=== PATIENT | female | born 1950 | race Caucasian/White ===

== ENCOUNTER 2017-04-19 13:58 | Observation (INO) | payer MEDICARE ==
[~2017-04-19] VITALS: Ht 175.3 cm; Wt 126.7 kg
[2017-04-19] VITALS (7 sets, daily range): BP systolic 134–170; BP diastolic 54–79; PULSE 70–84; RESP 18–20; TEMP 98.4–99; O2SAT 97–100
--- NOTE | 2017-04-19 15:59 | PD ---
HPI Chief Complaint: Respiratory Symptoms Time Seen by Provider: 15:45 Travel History International Travel<30 days: No Contact w/Intl Traveler<30days: No Traveled to known affect area: No History of Present Illness HPI C/O 1 WEEK WORSENING SOB, WORSE WITH ACTIVITY, INCREASING LEG SWELLING PRESENTED TO [facility] WHERE SHE WAS ADVISED TO COME TO ED. [facility] Social History Tobacco Use: Yes Allergies-Medications (Allergen,Severity, Reaction): Coded Allergies: No Known Allergies (Unverified , 04/19/17) Reported Meds & Prescriptions Reported Meds & Active Scripts Active Reported Anastrozole 1 Mg Tab 1 Mg PO DAILY Fetzima ER (Levomilnacipran ER) 40 Mg Caper 40 Mg PO DAILY Review of Systems Except as stated in HPI: all other systems reviewed are Neg Respiratory: Positive: Shortness of Breath Physical Exam Narrative GENERAL: SKIN: Warm and dry. HEAD: Atraumatic. Normocephalic. EYES: Pupils equal and round. No scleral icterus. No injection or drainage. ENT: No nasal bleeding or discharge. Mucous membranes pink and moist. NECK: Trachea midline. No JVD. CARDIOVASCULAR: Regular rate and rhythm. RESPIRATORY: No accessory muscle use. Clear to auscultation. Breath sounds equal bilaterally. SCATTERED WHEEZES GASTROINTESTINAL: Abdomen soft, non-tender, nondistended. Hepatic and splenic margins not palpable. MUSCULOSKELETAL: Extremities without clubbing, cyanosis, or 2+ ADA LE EDEMA. No obvious deformities. NEUROLOGICAL: Awake and alert. No obvious cranial nerve deficits. Motor grossly within normal limits. Five out of 5 muscle strength in the arms and legs. Normal speech. PSYCHIATRIC: Appropriate mood and affect; insight and judgment normal. Data Data Last Documented VS Vital Signs Date Time Temp Pulse Resp B/P Pulse Ox O2 Delivery O2 Flow Rate FiO2 04/19/17 19:00 20 97 Room Air 04/19/17 19:00 99.0 76 170/79 Orders Complete Blood Count With Diff (04/19/17 16:08) Comprehensive Metabolic Panel (04/19/17 16:08) B-Type Natriuretic Peptide (04/19/17 16:08) Act Partial Throm Time (Ptt) (04/19/17 16:08) Prothrombin Time / Inr (Pt) (04/19/17 16:08) Ckmb (Isoenzyme) Profile (04/19/17 16:08) Troponin I (04/19/17 16:08) Influenzae A/B Antigen (04/19/17 16:08) Iv Access Insert/Monitor (04/19/17 16:08) Ecg Monitoring (04/19/17 16:08) Oximetry (04/19/17 16:08) Oxygen Administration (04/19/17 16:08) Chest, Single Ap (04/19/17 16:08) Sodium Chloride 0.9% Flush (Ns Flush) (04/19/17 16:15) Methylprednisolone So Succ Inj (Solumedr (04/19/17 16:15) Albuterol Neb (Albuterol Neb) (04/19/17 16:15) Ct Pulmonary Angiogram (04/19/17 17:41) Iohexol 350 Inj (Omnipaque 350 Inj) (04/19/17 18:30) Furosemide Inj (Lasix Inj) (04/19/17 19:00) Furosemide Inj (Lasix Inj) (04/19/17 19:00) Admit Order (Ed Use Only) (04/19/17 19:06) Labs Laboratory Tests Test 04/19/17 16:23 White Blood Count 9.4 TH/MM3 Red Blood Count 4.18 MIL/MM3 Hemoglobin 11.0 GM/DL Hematocrit 33.7 % Mean Corpuscular Volume 80.5 FL Mean Corpuscular Hemoglobin 26.4 PG Mean Corpuscular Hemoglobin 32.7 % Concent Red Cell Distribution Width 16.5 % Platelet Count 236 TH/MM3 Mean Platelet Volume 8.9 FL Neutrophils (%) (Auto) 65.7 % Lymphocytes (%) (Auto) 20.6 % Monocytes (%) (Auto) 7.3 % Eosinophils (%) (Auto) 2.7 % Basophils (%) (Auto) 3.7 % Neutrophils # (Auto) 6.2 TH/MM3 Lymphocytes # (Auto) 1.9 TH/MM3 Monocytes # (Auto) 0.7 TH/MM3 Eosinophils # (Auto) 0.3 TH/MM3 Basophils # (Auto) 0.3 TH/MM3 CBC Comment DIFF FINAL Differential Comment Prothrombin Time 11.1 SEC Prothromb Time International 1.0 RATIO Ratio Activated Partial 25.8 SEC Thromboplast Time Sodium Level 141 MEQ/L Potassium Level 3.9 MEQ/L Chloride Level 108 MEQ/L Carbon Dioxide Level 23.5 MEQ/L Anion Gap 10 MEQ/L Blood Urea Nitrogen 12 MG/DL Creatinine 0.77 MG/DL Estimat Glomerular Filtration 75 ML/MIN Rate Random Glucose 85 MG/DL Calcium Level 8.8 MG/DL Total Bilirubin 0.8 MG/DL Aspartate Amino Transf 29 U/L (AST/SGOT) Alanine Aminotransferase 35 U/L (ALT/SGPT) Alkaline Phosphatase 193 U/L Total Creatine Kinase 74 U/L Troponin I LESS THAN 0.02 NG/ML B-Type Natriuretic Peptide 81 PG/ML Total Protein 7.5 GM/DL Albumin 3.2 GM/DL [facility] Medical Decision Making Medical Screen Exam Complete: Yes Emergency Medical Condition: Yes Medical Record Reviewed: Yes Interpretation(s) NSR 65, NONSPEC STT CHANGES Differential Diagnosis PE V PNA V CHF V COPD Narrative Course PATIENT ON INITIAL EVAL NOTED TO BE CLINICALLY FLUID OVERLOADED AND TREATED SUCH, CXR DID NOT REVEAL OBVIOUS PULM EDEMA EXPECTED CT CHEST PERFORMED TO R/ O PE, STUDY CONFRIMED PULM EDEMA. ADMITTED FOR OBS AND FURTEHR EVALUATIOIN Diagnosis Primary Impression: PULMONARY EDEMA EVAL FOR NEW ONSET CHF Admitting Information Admitting Physician Requests: Observation Scripts Spacer/Device For Mdi (Inspirease Drug Delivery)1 Ea Mis #1 EA .ROUTE DIRECTED Ref 0 Prov:Cindy Iraheta MD 04/21/17 Nebulizer 1 Mis Mis #1 EA .ROUTE DIRECTED Ref 0 Prov:Cindy Iraheta MD 04/21/17 Ipratropium-Albuterol Neb (Duoneb)0.5-2.5 Mg/3 Ml Neb1 Nebule INH Q4HR NEB # 180 NEBULE Ref 0 Prov:Cindy Iraheta MD 04/21/17 Metoprolol Tartrate 25 Mg Tab25 Mg PO DAILY #30 TAB Ref 0 Prov:Cindy Iraheta MD 04/21/17 Lisinopril 5 Mg Tab5 Mg PO DAILY #30 TAB Ref 0 Prov:Cindy Iraheta MD 04/21/17 Prednisone 20 Mg Tab40 Mg PO DAILY #4 TAB Ref 0 Take 40 mg (2 tablets) daily for 5 days Prov:Cindy Iraheta MD 04/21/17 Potassium Chloride ER (K-Tab)20 Meq Tab20 Meq PO DAILY #30 TAB Ref 0 Prov:Cindy Iraheta MD 04/21/17 Budesonide Powder Inh (Pulmicort Flexhaler)180 Mcg/Act [id number] Mcg INH Q12HR # 1 INHALER Ref 0 Prov:Cindy Iraheta MD 04/21/17 Albuterol 18 GM Inh (Ventolin Hfa 18 GM Inh)90 Mcg/Act Aer2 Puff INH Q6H PRN ( SHORTNESS OF BREATH) #1 INHALER Ref 0 Prov:Cindy Iraheta MD 04/21/17 Ipratropium HFA 12.9 GM Inh (Atrovent HFA 12.9 GM Inh)17 Mcg/Act Aer2 Puff INH TID #1 INHALER Ref 0 Prov:Cindy Iraheta MD 04/21/17 Furosemide 40 Mg Tab40 Mg PO DAILY #30 TAB Ref 0 Prov:Cindy Iraheta MD 04/21/17 Alexandr Reyes MD Apr 19, 2017 15:59 Alexandr Reyes MD Apr 19, 2017 15:59
[2017-04-19] MEDS ORDERED: LEVO1CAP3 PO (16:10)
[2017-04-19] MEDS ORDERED: ANAS1TAB PO (16:10)
[2017-04-19] MEDS ORDERED: SODIUM CHLORIDE 0.9% FLUSH 10 ML FLUSH IVF PRN (16:15)
[2017-04-19] MEDS ORDERED: methylPREDNISolone SOD SUCC 125 MG/2 ML VIAL IVP ONE (16:15)
[2017-04-19 16:32] LABS: AUTOMATED NEUTROPHIL # 6.2 TH/MM3 (1.8-7.7); BASOPHIL # 0.3 TH/MM3 (0-0.2); BASOPHIL % 3.7 % (0.0-2.0); EOSINOPHIL # 0.3 TH/MM3 (0-0.4); EOSINOPHIL % 2.7 % (0.0-4.0); HEMATOCRIT 33.7 % (35.0-46.0); LYMPH % 20.6 % (9.0-44.0); LYMPHOCYTE # 1.9 TH/MM3 (1.0-4.8); MEAN CELL VOLUME 80.5 FL (80.0-100.0); MEAN CORPUSCULAR HEMOGLOBIN 26.4 PG (27.0-34.0); MEAN CORPUSCULAR HGB CONC 32.7 % (32.0-36.0); MONO % 7.3 % (0.0-8.0); NEUT % 65.7 % (16.0-70.0); PLATELET COUNT 236 TH/MM3 (150-450); RED BLOOD COUNT 4.18 MIL/MM3 (4.00-5.30); RED CELL DISTRIBUTION WIDTH 16.5 % (11.6-17.2); WHITE BLOOD COUNT 9.4 TH/MM3 (4.0-11.0)
[2017-04-19 16:38] LABS: HEMO FLAGS DIFF FINAL
[2017-04-19] MEDS: RESP: ALBUTEROL 2.5 MG/3 ML NEB (SCH) INH ×2 (16:39→16:48)
[2017-04-19 16:41] LABS: CHLORIDE 108 MEQ/L (98-107); POTASSIUM 3.9 MEQ/L (3.5-5.1); SODIUM (NA) 141 MEQ/L (136-145)
[2017-04-19 16:46] LABS: ANION GAP 10 MEQ/L (5-15); BICARBONATE 23.5 MEQ/L (21.0-32.0); BLOOD UREA NITROGEN 12 MG/DL (7-18)
[2017-04-19 16:49] LABS: ALT (GPT) 35 U/L (10-53); AST (GOT) 29 U/L (15-37); GLOMERULAR FILTRATION RATE 75 ML/MIN (>89)
[2017-04-19 16:50] LABS: TOTAL BILIRUBIN ADULT 0.8 MG/DL (0.2-1.0)
[2017-04-19 16:52] LABS: ALKALINE PHOSPHATASE 193 U/L (45-117)
[2017-04-19 16:56] LABS: CREATINE KINASE 74 U/L (26-192)
[2017-04-19 16:59] LABS: APTT (PATIENT) 25.8 SEC (24.3-30.1); PROTHROMBIN TIME - PATIENT 11.1 SEC (9.8-11.6)
--- NOTE | 2017-04-19 17:32 | RADRPT ---
EXAM DATE/TIME: 04/19/2017 16:38 [facility] COMPARISON: No previous studies available for comparison. INDICATIONS : Short of breath today. MEDICAL HISTORY : Carcinoma, breast. Gastroesophageal reflux disease. Barretts esophagus. SURGICAL HISTORY : Total knee replacement, left. Total knee replacement, right. Mastectomy, left. Left femur. ENCOUNTER: Initial ACUITY: 1 day PAIN SCORE: 0/10 LOCATION: Bilateral chest FINDINGS: The heart is enlarged. There are chronic interstitial changes within the pulmonary parenchyma. The me diastinal contours are within normal limits. No pleural effusion is evident. There are degenerative c hanges in the shoulders. There are postsurgical changes within the right shoulder. CONCLUSION: 1. Cardiomegaly and chronic interstitial changes. Richard Trinidad MD on April 19, 2017 at 16:55 Board Certified Radiologist. This report was verified electronically.
[2017-04-19] MEDS ORDERED: IOHEXOL 350 MG/ML 10 ML VIAL (for RAD DIAG) IV ONE (18:30)
--- NOTE | 2017-04-19 18:45 | RADRPT ---
EXAM DATE/TIME: 04/19/2017 18:11 [facility] COMPARISON: No previous studies available for comparison. INDICATIONS : Shortness of breath. IV CONTRAST: 75 cc Omnipaque 350 (iohexol) IV RADIATION DOSE: 21.34 CTDIvol (mGy) MEDICAL HISTORY : Carcinoma, breast. SURGICAL HISTORY : Mastectomy, left. ENCOUNTER: Initial ACUITY: 1 week PAIN SCALE: 0/10 LOCATION: chest TECHNIQUE: Volumetric scanning of the chest was performed using a pulmonary embolism protocol MIP images were re constructed. Using automated exposure control and adjustment of the mA and/or kV according to patien t size, radiation dose was kept as low as reasonably achievable to obtain optimal diagnostic quality images. DICOM format image data is available electronically for review and comparison. Follow-up recommendations for incidentally detected pulmonary nodules are based at a minimum on nodul e size and patient risk factors according to Fleischner Society Guidelines. FINDINGS: PULMONARY ARTERIES: No filling defects are seen in the pulmonary arteries through the segmental level. LUNGS: Moderate interstitial changes are noted. No concerning pulmonary nodule is visualized. PLEURAE: Small bilateral pleural effusions are noted. MEDIASTINUM: Moderate coronary calcifications are noted including the LAD. MUSCULOSKELETAL: Within normal limits for patient age. MISCELLANEOUS: The visualized upper abdominal organs demonstrate no acute abnormality. CONCLUSION: Moderate interstitial edema, small bilateral pleural effusions. Moderate LAD calcifications. Trung Trinidad MD FACR on April 19, 2017 at 18:43 Board Certified Radiologist. This report was verified electronically.
[2017-04-19] MEDS ORDERED: FUROSEMIDE 40 MG/4 ML VIAL IVP ONE (19:00)
[2017-04-19] MEDS ORDERED: FUROSEMIDE 100 MG/10 ML VIAL IVP ONE (19:00)
[2017-04-19] MEDS ORDERED: SODIUM CHLORIDE 0.9% FLUSH 10 ML FLUSH IV FLUSH PRN (19:45)
[2017-04-19] MEDS ORDERED: NALOXONE HCL 0.4 MG/ML AMP IV PRN (19:45)
[2017-04-19] MEDS: SODIUM CHLORIDE 0.9% FLUSH 10 ML FLUSH IV FLUSH SCH (22:30)
--- NOTE | 2017-04-19 22:37 | EKG ---
Date Performed: 04/19/2017 Time Performed: 22:17:48 PTAGE: 67 years EKG: Sinus rhythm NONSPECIFIC ST & T-WAVE ABNORMALITY BORDERLINE ECG NO PREVIOUS TRACING DOCTOR: Sammy Oreilly Interpretating Date/Time 04/19/2017 22:36:37
[2017-04-19 23:02] LABS: CREATINE KINASE 67 U/L (26-192)
[2017-04-20] VITALS (8 sets, daily range): BP systolic 142–199; BP diastolic 60–113; PULSE 77–89; RESP 14–22; TEMP 97.6–98.9; O2SAT 93–98
[2017-04-20] MEDS ORDERED: POTASSIUM CHLORIDE 20 MEQ CONTROLLED RELEASE TAB PO ONE (05:45)
[2017-04-20 06:09] LABS: BASOPHIL % 0.1 % (0.0-2.0); HEMATOCRIT 31.6 % (35.0-46.0); HEMO FLAGS DIFF FINAL; LYMPH % 11.3 % (9.0-44.0); LYMPHOCYTE # 0.9 TH/MM3 (1.0-4.8); MEAN CELL VOLUME 79.1 FL (80.0-100.0); MEAN CORPUSCULAR HEMOGLOBIN 26.9 PG (27.0-34.0); MONO % 3.1 % (0.0-8.0); NEUT % 85.5 % (16.0-70.0); PLATELET COUNT 259 TH/MM3 (150-450); RED CELL DISTRIBUTION WIDTH 15.6 % (11.6-17.2); WHITE BLOOD COUNT 8.2 TH/MM3 (4.0-11.0)
[2017-04-20 06:14] LABS: POTASSIUM 3.3 MEQ/L (3.5-5.1)
[2017-04-20 06:21] LABS: BICARBONATE 22.2 MEQ/L (21.0-32.0); MAGNESIUM 2.2 MG/DL (1.5-2.5)
[2017-04-20 06:40] LABS: CREATINE KINASE 92 U/L (26-192)
--- NOTE | 2017-04-20 08:30 | EKG ---
Date Performed: 04/20/2017 Time Performed: 04:48:13 PTAGE: 67 years EKG: Sinus rhythm NONSPECIFIC ST & T-WAVE ABNORMALITY BORDERLINE ECG NO PREVIOUS TRACING DOCTOR: Sammy Oreilly Interpretating Date/Time 04/20/2017 08:28:42
[2017-04-20] MEDS: FUROSEMIDE 40 MG/4 ML VIAL IV PUSH SCH ×2 (09:15→17:06)
[2017-04-20] MEDS: SODIUM CHLORIDE 0.9% FLUSH 10 ML FLUSH IV FLUSH SCH ×2 (09:15→21:37)
--- NOTE | 2017-04-20 11:46 | ECHRPT ---
Indication: HEART FAILURE CONCLUSIONS Normal left ventricular size. Wall thickness is normal. No regional wall motion abnormalities are present. Normal left ventricular size. Wall thickness is normal. No regional wall motion abnormalities are present. BP: 150 / 60 HR: 82 Rhythm: Sinus MEASUREMENTS (Male / Female) Normal Values Technical Quality:Fair 2D ECHO LVOT Diameter 1.6 cm Aortic Root Diameter 2.6 cm M-MODE AV Cusp Separation MM 1.7 cm DOPPLER AV Peak Velocity 321.0 cm/s AV Peak Gradient 41.2 mmHg AV Mean Gradient 21.0 mmHg AV Velocity Time Integral 59.6 cm LVOT Peak Velocity 171.0 cm/s LVOT Peak Gradient 11.7 mmHg LVOT Velocity Time Integral 24.4 cm LVOT Cardiac Index 1583.3 cm/minm AV Area Cont Eq vti 0.8 cm AV Area Cont Eq pk 1.1 cm Mitral E Point Velocity 89.5 cm/s Mitral A Point Velocity 101.0 cm/s Mitral E to A Ratio 0.9 TR Peak Velocity 362.0 cm/s TR Peak Gradient 52.4 mmHg PV Peak Velocity 149.0 cm/s PV Peak Gradient 8.9 mmHg FINDINGS LEFT VENTRICLE Normal left ventricular size. Wall thickness is normal. No regional wall motion abnormalities are present. RIGHT VENTRICLE Normal right ventricular size and systolic function. LEFT ATRIUM The left atrial size is normal. RIGHT ATRIUM The right atrial size is normal. ATRIAL SEPTUM Normal atrial septal thickness without atrial level shunting by limited color doppler interrogation. AORTA The aortic root and proximal ascending aorta are normal in size on limited imaging. MITRAL VALVE Structurally normal mitral valve. No mitral valve stenosis or regurgitation. AORTIC VALVE Moderate thickening of the aortic valve leaflets. No aortic valve regurgitation. Mild aortic valve stenosis. TRICUSPID VALVE Structurally normal tricuspid valve. No tricuspid valve stenosis or regurgitation. PULMONARY VALVE The pulmonary valve is not well visualized. VESSELS The inferior vena cava is normal in size. PERICARDIUM No pericardial effusion. Adalberto Romo MD, FACC (Electronically Signed) Final Date:20 April 2017 11:45
[2017-04-20] MEDS ORDERED: POTASSIUM CHLORIDE 10 MEQ CAP PO ONE (12:30)
[2017-04-20] MEDS ORDERED: MAGNESIUM OXIDE 400 MG TAB PO ONE (13:00)
[2017-04-20] MEDS ORDERED: OMEP40CA2 PO (13:15)
[2017-04-20] MEDS ORDERED: PRAM0.5T PO (13:15)
--- NOTE | 2017-04-20 13:35 | HHI.HP ---
[facility] No Primary Care Physician Admission Diagnosis CLINICAL DECOMP CHF Diagnoses: Chief Complaint: sob Travel History International Travel<30 Days: No Contact w/Intl Traveler <30 Da: No Traveled to Known Affected Are: No History of Present Illness The patient is a 67-year-old female morbidly obese with a BMI of 41.2, COPD, CHF unspecified ejection fraction, anxiety/depression, tobaccoism, history of breast cancer who came to the emergency room with complaints of worsening shortness of breath over the past 2 days. Shortness of breath since worse with activity. She also has noted's her leg and her legs are swollen over the past week. She is taking Lasix at home. She feels more tired than usual. She denies having any chest pain or pressure. No associated nausea, lightheadedness , palpitations, diaphoresis. Review of Systems Except as stated in HPI: all other systems reviewed are Neg Past Family Social History Past Medical History Morbidly obese with a BMI of 41.2, COPD, CHF unspecified ejection fraction, anxiety/depression, tobaccoism, history of breast cancer Past Surgical History Bilateral knee surgery Mastectomy Reported Medications Reported Meds & Active Scripts Active Reported Omeprazole 40 Mg Cap 40 Mg PO DAILY Pramipexole (Pramipexole Dihydrochloride) 0.5 Mg Tab 0.5 Mg PO HS Anastrozole 1 Mg Tab 1 Mg PO DAILY Fetzima ER (Levomilnacipran ER) 40 Mg Caper 40 Mg PO DAILY Allergies: Coded Allergies: No Known Allergies (Unverified , 04/19/17) Family History History of colon cancer , her father Heart problems runs in her family, unspecified Social History Smokes 3 packs cigarettes per week Occasional alcohol use No illicit drug use so Physical Exam Vital Signs Vital Signs Date Time Temp Pulse Resp B/P Pulse Ox O2 Delivery O2 Flow Rate FiO2 04/20/17 09:52 98.0 83 14 142/60 96 04/20/17 04:32 158/60 04/20/17 04:00 97.6 82 20 95 04/20/17 00:00 98.5 89 20 160/76 93 7/12/17 22:30 82 04/19/17 20:00 79 20 158/65 97 Room Air 04/19/17 19:00 20 97 Room Air 04/19/17 19:00 99.0 76 20 170/79 97 Room Air 04/19/17 18:34 84 18 134/62 98 Room Air 04/19/17 16:35 18 100 Room Air 04/19/17 16:03 20 100 Room Air 04/19/17 16:00 98.4 76 20 159/54 100 04/19/17 14:06 98.4 70 18 140/63 99 Physical Exam GENERAL: This is a well-nourished, well-developed patient, in no apparent distress. SKIN: No rashes, ecchymoses or lesions. Cool and dry. HEAD: Atraumatic. Normocephalic. No temporal or scalp tenderness. EYES: Pupils equal round and reactive. Extraocular motions intact. No scleral icterus. No injection or drainage. ENT: Nose without bleeding, purulent drainage or septal hematoma. Throat without erythema, tonsillar hypertrophy or exudate. Uvula midline. Airway patent. NECK: Trachea midline. No JVD or lymphadenopathy. Supple, nontender, no meningeal signs. CARDIOVASCULAR: Regular rate and rhythm without murmurs, gallops, or rubs. RESPIRATORY: Decrease breath sounds. Bibasilar crackles. No wheezes. No accessory muscle use. GASTROINTESTINAL: Abdomen soft, obese, non-tender, nondistended. No hepato- splenomegaly, or palpable masses. No guarding. MUSCULOSKELETAL: Extremities without clubbing, cyanosis. 2+ LE edema. No joint tenderness, effusion, or edema noted. No calf tenderness. Negative Homans sign bilaterally. NEUROLOGICAL: Awake and alert. Cranial nerves II through XII intact. Motor and sensory grossly within normal limits. Five out of 5 muscle strength in all muscle groups. Normal speech. Laboratory Laboratory Tests Test 04/19/17 04/19/17 04/20/17 16:23 22:25 05:25 White Blood Count 9.4 8.2 Red Blood Count 4.18 4.00 Hemoglobin 11.0 10.8 Hematocrit 33.7 31.6 Mean Corpuscular Volume 80.5 79.1 Mean Corpuscular Hemoglobin 26.4 26.9 Mean Corpuscular Hemoglobin 32.7 34.0 Concent Red Cell Distribution Width 16.5 15.6 Platelet Count 236 259 Mean Platelet Volume 8.9 8.8 Neutrophils (%) (Auto) 65.7 85.5 Lymphocytes (%) (Auto) 20.6 11.3 Monocytes (%) (Auto) 7.3 3.1 Eosinophils (%) (Auto) 2.7 0.0 Basophils (%) (Auto) 3.7 0.1 Neutrophils # (Auto) 6.2 7.0 Lymphocytes # (Auto) 1.9 0.9 Monocytes # (Auto) 0.7 0.3 Eosinophils # (Auto) 0.3 0.0 Basophils # (Auto) 0.3 0.0 CBC Comment DIFF FINAL DIFF FINAL Differential Comment Prothrombin Time 11.1 Prothromb Time International 1.0 Ratio Activated Partial 25.8 Thromboplast Time Sodium Level 141 141 Potassium Level 3.9 3.3 Chloride Level 108 107 Carbon Dioxide Level 23.5 22.2 Anion Gap 10 12 Blood Urea Nitrogen 12 20 Creatinine 0.77 0.90 Estimat Glomerular Filtration 75 63 Rate Random Glucose 85 156 Calcium Level 8.8 9.1 Total Bilirubin 0.8 Aspartate Amino Transf 29 (AST/SGOT) Alanine Aminotransferase 35 (ALT/SGPT) Alkaline Phosphatase 193 Total Creatine Kinase 74 67 92 Troponin I LESS THAN 0.02 LESS THAN 0.02 LESS THAN 0.02 B-Type Natriuretic Peptide 81 Total Protein 7.5 Albumin 3.2 Magnesium Level 2.2 Date/Time Procedure Status Source Growth 04/19/17 16:30 Influenza Types A,B Antigen (NICKY) - Final Complete Nasal Washing NEGATIVE FOR FLU A AND B ANTIGEN.... Result Diagram: 04/20/17 0525 04/20/[address] Angiography 04/19/17 1741 Signed Impressions: Service Date/Time: Wednesday, April 19, 2017 18:11 - CONCLUSION: Moderate interstitial edema, small bilateral pleural effusions. Moderate LAD calcifications. Trung Trinidad MD FACR Chest X-Ray 04/19/17 1608 Signed Impressions: Service Date/Time: Wednesday, April 19, 2017 16:38 - CONCLUSION: 1. Cardiomegaly and chronic interstitial changes. Richard Trinidad MD Assessment and Plan Assessment and Plan 67-year-old female with CHF exacerbation Small Bilateral pleural effusions Start Lasix 40 mg IV twice a day Monitor urine output closely. Monitor kidney function closely as patient is on Lasix. 2-D echo Satting well on room air at this time Monitor oxygen saturation. Oxygen by nasal cannula if need to keep saturation more than 92% Troponins are negative by 3. EKG no acute changes Morbidly obese with a BMI of 41.2. Counselled. Dietary changes. To follow-up with the dietitian as outpatient. COPD, CHF unspecified ejection fraction, anxiety/depression, tobaccoism, history of breast cancer. Appears stable at this time. Restart home medications. Consult will consult his extensively regarding quitting smoking. Might need sleep study as outpatient. DVT prophylaxis did Bakari crespo Discussed Condition With Patient, nurse Cindy Iraheta MD Apr 20, 2017 13:35
[2017-04-20] MEDS ORDERED: FETZIMA 40 MG PO SCH (14:00)
[2017-04-20] MEDS: PANTOPRAZOLE SOD 40 MG DELAYED RELEASE TAB PO SCH (14:29)
[2017-04-20] MEDS: ANASTROZOLE 1 MG TAB PO SCH (14:29)
[2017-04-20] MEDS: LORazepam 0.5 MG TAB PO PRN ×2 (14:29→21:36)
[2017-04-20] MEDS ORDERED: LORazepam 2 MG/ML VIAL IM ONE (16:45)
[2017-04-20] MEDS ORDERED: LORazepam 2 MG/ML VIAL IV PUSH ONE (17:00)
[2017-04-20] MEDS ORDERED: ENALAPRILAT 2.5 MG/2 ML VIAL IV PUSH PRN (19:00)
[2017-04-20] MEDS ORDERED: hydrALAZINE HCL 10 MG TAB PO PRN (19:00)
[2017-04-20] MEDS ORDERED: LISINOPRIL 5 MG TAB PO ONE (19:00)
[2017-04-20] MEDS ORDERED: PRAMIPEXOLE DIHYDROCHLORIDE 0.25 MG TAB PO SCH (21:00)
[2017-04-21] VITALS: BP 160/89; PULSE 76; RESP 20; TEMP 97; O2SAT 94
[2017-04-21 04:00] VITALS: BP 148/80; PULSE 72; RESP 22; TEMP 97; O2SAT 95
--- NOTE | 2017-04-21 08:32 | HHI.PR ---
Subjective Remarks The patient is at the margin of the bed. Says her lower extremity edema has improved. She feels less short of breath. She was able to sleep last night. No fever or chills. No wheezing at this time. Denies nausea, vomiting, diarrhea or constipation. Objective Vitals Vital Signs Date Time Temp Pulse Resp B/P Pulse Ox O2 Delivery O2 Flow Rate FiO2 04/21/17 04:00 97.0 72 22 148/80 95 04/21/17 00:00 97.0 76 20 160/89 94 04/20/17 20:00 82 04/20/17 20:00 98.9 77 22 168/98 95 Manual Cuff/Auscultation 04/20/17 19:57 78 04/20/17 18:00 98.0 83 15 199/84 95 04/20/17 12:00 98.5 86 15 179/113 98 04/20/17 09:52 98.0 83 14 142/60 96 I/O 04/20/17 04/20/17 04/20/17 04/21/17 04/21/17 04/21/17 06:59 14:59 22:59 06:59 14:59 22:59 Intake Total 220 ml Output Total 900 ml 800 ml 2 ml Balance -900 ml -800 ml 218 ml Intake Oral 220 ml Output Urine Total 900 ml 800 ml 2 ml # Voids 2 # Bowel Movements 0 Result Diagram: 04/20/17 0525 04/20/17 [address] Angiography 04/19/17 1741 Signed Impressions: Service Date/Time: Wednesday, April 19, 2017 18:11 - CONCLUSION: Moderate interstitial edema, small bilateral pleural effusions. Moderate LAD calcifications. Trung Trinidad MD FACR Chest X-Ray 04/19/17 1608 Signed Impressions: Service Date/Time: Wednesday, April 19, 2017 16:38 - CONCLUSION: 1. Cardiomegaly and chronic interstitial changes. Richard Trinidad MD Objective Remarks GENERAL: This is a well-nourished, well-developed patient, in no apparent distress. CARDIOVASCULAR: Regular rate and rhythm without murmurs, gallops, or rubs. RESPIRATORY: Decrease breath sounds. Bibasilar crackles. No wheezes. No accessory muscle use. GASTROINTESTINAL: Abdomen soft, obese, non-tender, nondistended. No hepato- splenomegaly, or palpable masses. No guarding. MUSCULOSKELETAL: Extremities without clubbing, cyanosis. 2+ LE edema. No joint tenderness, effusion, or edema noted. No calf tenderness. Negative Homans sign bilaterally. NEUROLOGICAL: Awake and alert. Cranial nerves II through XII intact. Motor and sensory grossly within normal limits. Five out of 5 muscle strength in all muscle groups. Normal speech. A/P Assessment and Plan 67-year-old female with CHF exacerbation Small Bilateral pleural effusions COPD with mild exacerbation Hypertension Received Lasix 40 mg IV twice a day. Switch to lasix 40 mg PO at DC Monitor urine output closely. Monitor kidney function closely as patient is on Lasix. 2-D echo reviewed with normal EF Satting well on room air at this time Monitor oxygen saturation. Oxygen by nasal cannula if need to keep saturation more than 92% Troponins are negative by 3. EKG no acute changes Duonebs. Prednisone. Morbidly obese with a BMI of 41.2. Counselled. Dietary changes. To follow-up with the dietitian as outpatient. Anxiety/depression, tobaccoism, history of breast cancer. Appears stable at this time. Restart home medications. Counselled extensively regarding quitting smoking. Might need sleep study as outpatient. DVT prophylaxis did Bakari crespo Discussed Condition With Patient, nurse Discharge Planning Discharge home in stable condition. To follow-up with PCP at on consult as outpatient. Diet healthy heart diet Medications per medication reconciliation Activity ad annette. as tolerated Cindy Iraheta MD Apr 21, 2017 08:32
[2017-04-21] MEDS ORDERED: FURO40TA PO (08:33)
--- NOTE | 2017-04-21 08:34 | HHI.DCPOC ---
Discharge Care Plan Goals to Promote Your Health * To prevent worsening of your condition and complications * To maintain your health at the optimal level Directions to Meet Your Goals Take your medications as prescribed Follow your dietary instruction Follow activity as directed Keep your appointments as scheduled Take your immunizations and boosters as scheduled If your symptoms worsen call your PCP, if no PCP go to Urgent Care Center or Emergency Room Smoking is Dangerous to Your Health. Avoid second hand smoke Call the 24-hour hour crisis hotline for domestic abuse at Cindy Iraheta MD Apr 21, 2017 08:34
[2017-04-21] MEDS ORDERED: PULM180I INH (08:38)
[2017-04-21] MEDS ORDERED: IPRA17I INH (08:38)
[2017-04-21] MEDS ORDERED: VENTAER INH (08:38)
[2017-04-21] MEDS ORDERED: POTA1TAB4 PO (08:40)
[2017-04-21] MEDS ORDERED: PRED20 PO (08:41)
[2017-04-21] MEDS ORDERED: METO25TA3 PO (08:42)
[2017-04-21] MEDS ORDERED: LISI-519 PO (08:42)
[2017-04-21] MEDS ORDERED: RESP: ALBUTEROL 2.5 MG/IPRATROPIUM 0.5 MG NEB (PRN) NEB (08:45)
[2017-04-21] MEDS ORDERED: predniSONE 20 MG TAB PO SCH (09:00)
[2017-04-21] MEDS ORDERED: LISINOPRIL 5 MG TAB PO SCH ×2 (09:00)
[2017-04-21] MEDS ORDERED: METOPROLOL TARTRATE 25 MG TAB PO SCH (09:00)
[2017-04-21] MEDS ORDERED: POTASSIUM CHLORIDE 20 MEQ CONTROLLED RELEASE TAB PO SCH (09:00)
[2017-04-21] MEDS ORDERED: POTASSIUM CHLORIDE 10 MEQ CONTROLLED RELEASE TAB PO ONE (09:00)
[2017-04-21] MEDS: SODIUM CHLORIDE 0.9% FLUSH 10 ML FLUSH IV FLUSH SCH (09:00)
[2017-04-21] MEDS: PANTOPRAZOLE SOD 40 MG DELAYED RELEASE TAB PO SCH (09:12)
[2017-04-21] MEDS: FUROSEMIDE 40 MG/4 ML VIAL IV PUSH SCH (09:12)
[2017-04-21 09:16] VITALS: BP 166/86; PULSE 66; RESP 19; TEMP 96.7; O2SAT 95
[2017-04-21] MEDS: ANASTROZOLE 1 MG TAB PO SCH (09:34)
[2017-04-21] MEDS ORDERED: IPRASOL INH (09:50)
[2017-04-21] MEDS ORDERED: INSPIREASE DRUG1 EA (09:50)
[2017-04-21] MEDS ORDERED: NEBULIZER1 MI1 (09:50)
[2017-04-21] MEDS ORDERED: RESP: ALBUTEROL 2.5 MG/IPRATROPIUM 0.5 MG NEB (SCH) NEB (14:00)
== END 2017-04-21 10:42 | disposition home or self-care (01) ==
LOC: PHED 13:58 → PHEDA 19:06 → PH3A 20:36
PROVIDERS: ADMIT Hospitalist; ATTEND Hospitalist
DX: I11.0 Hypertensive heart disease with heart failure (principal); I50.9 Heart failure, unspecified; J44.1 Chronic obstructive pulmonary disease with (acute) exacerbation; J90 Pleural effusion, not elsewhere classified; M79.89 Other specified soft tissue disorders; K21.9 Gastro-esophageal reflux disease without esophagitis; F41.9 Anxiety disorder, unspecified; E66.01 Morbid (severe) obesity due to excess calories; Z68.41 Body mass index [BMI] 40.0-44.9, adult; F17.200 Nicotine dependence, unspecified, uncomplicated; Z79.899 Other long term (current) drug therapy; Z85.3 Personal history of malignant neoplasm of breast; Z90.12 Acquired absence of left breast and nipple; Z96.653 Presence of artificial knee joint, bilateral
CPT/HCPCS: 71010; 71275; 80048; 80053; 82550; 83735; 83880; 84484; 85025; 85610; 85730; 87804; 93005; 93306; 94640; 94664; 96374; 99285; G0378; J1940; J2060; J2930; J7512; J7613; Q9967

== ENCOUNTER 2017-05-29 12:06 | Emergency (ER) | payer MEDICARE ==
[~2017-05-29] VITALS: Ht 175.3 cm; Wt 126.0 kg
[~2017-05-29 12:06] MED LIST: ANAS1TAB PO; ASPI81CH CHEW; FURO40TA PO; INSPIREASE DRUG1 EA; IPRA17I INH; IPRASOL INH; LEVO1CAP3 PO; LISI-519 PO; METO25TA3 PO; NEBULIZER1 MI1; OMEP40CA2 PO; POTA1TAB4 PO; PRAM0.5T PO; PRAV40TA2 PO; PULM180I INH; VENTAER INH
[2017-05-29 12:08] VITALS: BP 134/67; PULSE 92; RESP 16; TEMP 98.3; O2SAT 96
[2017-05-29 13:00] VITALS: O2SAT 100
[2017-05-29] MEDS ORDERED: SODIUM CHLORIDE 0.9% FLUSH 10 ML FLUSH IVF PRN (13:15)
[2017-05-29] MEDS ORDERED: LORazepam 2 MG/ML VIAL IV PUSH ONE (13:15)
[2017-05-29] MEDS ORDERED: methylPREDNISolone SOD SUCC 125 MG/2 ML VIAL IVP ONE (13:15)
--- NOTE | 2017-05-29 13:21 | PD ---
HPI Chief Complaint: Respiratory Symptoms Time Seen by Provider: 13:11 Travel History International Travel<30 days: No Contact w/Intl Traveler<30days: No Traveled to known affect area: No History of Present Illness HPI 67-year-old female with history of CHF, COPD, here for evaluation of shortness of breath, cough, generalized malaise. Symptoms started yesterday, were worse at around 1:00 AM. Cough is productive of yellowish sputum. No hemoptysis. She does have an ache in her chest, however she believes that this is musculoskeletal as it occurs when she coughs and breathes. She has not noted any fever. She does note orthopnea. 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 She reports that she was admitted last month for similar symptoms. PFSH Past Medical History Arthritis: Yes Depression: Yes Cancer: Yes (BREAST) Cardiovascular Problems: Yes GERD: Yes Respiratory: Yes Past Surgical History Mastectomy: Yes (LEFT) Social History Alcohol Use: No Tobacco Use: Yes Substance Use: No Allergies-Medications (Allergen,Severity, Reaction): Coded Allergies: hydromorphone (Verified Allergy, Mild, Hallucinations, 05/29/17) Reported Meds & Prescriptions Reported Meds & Active Scripts Active Ativan (Lorazepam) 1 Mg Tab 1 Mg PO HS PRN Levaquin (Levofloxacin) 500 Mg Tablet 1 Tab PO DAILY 5 Days Prednisone 50 Mg Tab 50 Mg PO DAILY 5 Days Pravastatin 40 Mg Tab 40 Mg PO DAILY Pramipexole (Pramipexole Dihydrochloride) 0.5 Mg Tab 1 Mg PO HS Metoprolol Tartrate 25 Mg Tab 25 Mg PO DAILY Lisinopril 5 Mg Tab 5 Mg PO DAILY K-Tab (Potassium Chloride) 20 Meq Tab 20 Meq PO DAILY Furosemide 40 Mg Tab 40 Mg PO DAILY Inspirease Drug Delivery (Spacer/Device For Mdi) 1 Ea Mis 1 Ea .ROUTE DIRECTED Nebulizer 1 Mis Mis 1 Ea .ROUTE DIRECTED Duoneb (Ipratropium-Albuterol Neb) 0.5-2.5 Mg/3 Ml Neb 1 Nebule INH Q4HR NEB Pulmicort Flexhaler (Budesonide Powder Inh) 180 Mcg/Act Inhp 180 Mcg INH Q12HR Ventolin Hfa 18 GM Inh (Albuterol Sulfate) 90 Mcg/Act Aer 2 Puff INH Q6H PRN Atrovent HFA 12.9 GM Inh (Ipratropium Anthony) 17 Mcg/Act Aer 2 Puff INH TID Reported Aspirin 81 Mg Chew 81 CHEW DAILY Omeprazole 40 Mg Cap 40 Mg PO DAILY Anastrozole 1 Mg Tab 1 Mg PO DAILY Fetzima ER (Levomilnacipran ER) 40 Mg Caper 40 Mg PO DAILY Review of Systems Except as stated in HPI: all other systems reviewed are Neg Physical Exam Narrative GENERAL: Well-developed, well-nourished, tachypneic SKIN: Focused skin assessment warm/dry. HEAD: Atraumatic. Normocephalic. EYES: Pupils equal and round. No scleral icterus. No injection or drainage. ENT: Mucous membranes pink and moist. NECK: Trachea midline. No JVD. CARDIOVASCULAR: Regular rate and rhythm. RESPIRATORY: Tachypneic, speaking a few words at a time, slight end expiratory wheezes bilaterally, bibasilar rales. GASTROINTESTINAL: Abdomen soft, non-tender, nondistended. MUSCULOSKELETAL: No obvious deformities. No clubbing. No cyanosis. No edema. NEUROLOGICAL: Awake and alert. No obvious cranial nerve deficits. Motor grossly within normal limits. Normal speech. PSYCHIATRIC: Appropriate mood and affect; insight and judgment normal. Data Data Last Documented VS Vital Signs Date Time Temp Pulse Resp B/P (MAP) Pulse Ox O2 Delivery O2 Flow Rate FiO2 05/29/17 13:51 100 Room Air 05/29/17 13:34 21 05/29/17 13:09 22 05/29/17 12:08 98.3 92 134/67 (89) Orders Orders Complete Blood Count With Diff (05/29/17 13:15) Comprehensive Metabolic Panel (05/29/17 13:15) B-Type Natriuretic Peptide (05/29/17 13:15) Act Partial Throm Time (Ptt) (05/29/17 13:15) Prothrombin Time / Inr (Pt) (05/29/17 13:15) Ckmb (Isoenzyme) Profile (05/29/17 13:15) Troponin I (05/29/17 13:15) Iv Access Insert/Monitor (05/29/17 13:15) Electrocardiogram (05/29/17 13:15) Ecg Monitoring (05/29/17 13:15) Oximetry (05/29/17 13:15) Oxygen Administration (05/29/17 13:15) Chest, Single Ap (05/29/17 13:15) Sodium Chloride 0.9% Flush (Ns Flush) (05/29/17 13:15) Methylprednisolone So Succ Inj (Solumedr (05/29/17 13:15) Albuterol-Ipratropium Neb (Duoneb Neb) (05/29/17 13:15) Lorazepam Inj (Ativan Inj) (05/29/17 13:15) CKMB (05/29/17 13:40) CKMB% (05/29/17 13:40) Labs Laboratory Tests Test 05/29/17 13:40 White Blood Count 8.2 TH/MM3 Red Blood Count 4.85 MIL/MM3 Hemoglobin 12.6 GM/DL Hematocrit 38.7 % Mean Corpuscular Volume 79.9 FL Mean Corpuscular Hemoglobin 26.1 PG Mean Corpuscular Hemoglobin Concent 32.7 % Red Cell Distribution Width 17.4 % Platelet Count 269 TH/MM3 Mean Platelet Volume 8.1 FL Neutrophils (%) (Auto) 60.5 % Lymphocytes (%) (Auto) 27.5 % Monocytes (%) (Auto) 6.5 % Eosinophils (%) (Auto) 5.1 % Basophils (%) (Auto) 0.4 % Neutrophils # (Auto) 5.0 TH/MM3 Lymphocytes # (Auto) 2.3 TH/MM3 Monocytes # (Auto) 0.5 TH/MM3 Eosinophils # (Auto) 0.4 TH/MM3 Basophils # (Auto) 0.0 TH/MM3 CBC Comment DIFF FINAL Differential Comment Prothrombin Time 10.2 SEC Prothromb Time International Ratio 0.9 RATIO Activated Partial Thromboplast Time 29.0 SEC Blood Urea Nitrogen 12 MG/DL Creatinine 0.77 MG/DL Random Glucose 112 MG/DL Total Protein 7.8 GM/DL Albumin 3.5 GM/DL Calcium Level 8.8 MG/DL Alkaline Phosphatase 219 U/L Aspartate Amino Transf (AST/SGOT) 31 U/L Alanine Aminotransferase (ALT/SGPT) 43 U/L Total Bilirubin 0.5 MG/DL Sodium Level 140 MEQ/L Potassium Level 4.1 MEQ/L Chloride Level 107 MEQ/L Carbon Dioxide Level 23.1 MEQ/L Anion Gap 10 MEQ/L Estimat Glomerular Filtration Rate 75 ML/MIN Total Creatine Kinase 129 U/L Creatine Kinase MB 2.0 NG/ML Troponin I LESS THAN 0.02 NG/ML B-Type Natriuretic Peptide 32 PG/ML MDM Medical Decision Making Medical Screen Exam Complete: Yes Emergency Medical Condition: Yes Medical Record Reviewed: Yes Interpretation(s) EKG: Sinus, rate 80, normal axis, normal intervals, no acute ischemic abnormality. Differential Diagnosis CBD exacerbation, pneumonia, bronchitis, pulmonary edema, pneumothorax, PE, ACS Narrative Course Chart review shows that the patient had an echocardiogram on 04/20/17 which showed normal left ventricular size, wall thickness is normal, no regional wall motion abnormalities. Vital signs show heart rate 92, blood pressure 134/67, pulse ox 100% on room air , oral temp of 98.3F. CBC is unremarkable. CMP is unremarkable. Cardiac enzymes are negative. BNP is 32. Chest x-ray: Cardiomegaly and increase in pulmonary vascularity. Patient was given 3 DuoNeb treatments and IV Solu-Medrol. On reassessment she reports feeling improved. She is still slightly Tachypneic. She was also given some Ativan as she appeared more anxious to me than anything. Patient was made aware of all findings. She would like to be discharged home. She'll be discharged home with a prescription for Levaquin and prednisone. She is also requesting that I give her prescription for some Ativan as well as she has run out of hers at home. She was instructed to follow-up with her primary care physician this week. She was informed on when to return to the emergency department. She verbalizes understanding and agreement with plan. Diagnosis Primary Impression: COPD exacerbation Referrals: Primary Care Physician 3 days Additional Instructions: Follow-up with your primary care physician this week. Return to the emergency department for worsening symptoms or any other concerns. Scripts Lorazepam (Ativan) 1 Mg Tab 1 MG PO HS Y for ANXIETY AND/OR AGITATION, #6 TAB 0 Refills Prov: Cruz Choi MD 05/29/17 Levofloxacin (Levaquin) 500 Mg Tablet 1 TAB PO DAILY for 5 Days Prov: Cruz Choi MD 05/29/17 Prednisone (Prednisone) 50 Mg Tab 50 MG PO DAILY for 5 Days, TAB 0 Refills Prov: Cruz Choi MD 05/29/17 Disposition: 01 DISCHARGE HOME Condition: Stable Cruz Choi MD May 29, 2017 13:21
[2017-05-29] MEDS: RESP: ALBUTEROL 2.5 MG/IPRATROPIUM 0.5 MG NEB (SCH) INH (13:31)
--- NOTE | 2017-05-29 13:33 | RADRPT ---
EXAM DATE/TIME: 05/29/2017 13:23 [facility] COMPARISON: CHEST SINGLE AP, April 19, 2017, 16:38. INDICATIONS : Short of breath MEDICAL HISTORY : Chronic obstructive pulmonary disease. SURGICAL HISTORY : None. ENCOUNTER: Initial ACUITY: 1 day PAIN SCORE: 2/10 LOCATION: Bilateral chest FINDINGS: A single view of the chest demonstrates the lungs to be symmetrically aerated without evidence of mas s, infiltrate or effusion. Cardiomegaly and increase in pulmonary vascularity. No pulmonary edema. T he cardiomediastinal contours are unremarkable. Osseous structures are intact. CONCLUSION: Cardiomegaly and increase in pulmonary vascularity.. Noam Ascencio MD on May 29, 2017 at 13:29 Board Certified Radiologist. This report was verified electronically.
[2017-05-29 13:34] VITALS: O2SAT 100
[2017-05-29 13:50] LABS: BASOPHIL % 0.4 % (0.0-2.0); EOSINOPHIL # 0.4 TH/MM3 (0-0.4); EOSINOPHIL % 5.1 % (0.0-4.0); HEMATOCRIT 38.7 % (35.0-46.0); HEMO FLAGS DIFF FINAL; LYMPH % 27.5 % (9.0-44.0); LYMPHOCYTE # 2.3 TH/MM3 (1.0-4.8); MEAN CELL VOLUME 79.9 FL (80.0-100.0); MEAN CORPUSCULAR HEMOGLOBIN 26.1 PG (27.0-34.0); MEAN CORPUSCULAR HGB CONC 32.7 % (32.0-36.0); MONO % 6.5 % (0.0-8.0); NEUT % 60.5 % (16.0-70.0); PLATELET COUNT 269 TH/MM3 (150-450); RED BLOOD COUNT 4.85 MIL/MM3 (4.00-5.30); RED CELL DISTRIBUTION WIDTH 17.4 % (11.6-17.2); WHITE BLOOD COUNT 8.2 TH/MM3 (4.0-11.0)
[2017-05-29 14:05] LABS: CHLORIDE 107 MEQ/L (98-107); POTASSIUM 4.1 MEQ/L (3.5-5.1); SODIUM (NA) 140 MEQ/L (136-145)
[2017-05-29 14:09] LABS: ANION GAP 10 MEQ/L (5-15); BICARBONATE 23.1 MEQ/L (21.0-32.0); BLOOD UREA NITROGEN 12 MG/DL (7-18); INTERNATIONAL NORMALIZED RATIO 0.9 RATIO; PROTHROMBIN TIME - PATIENT 10.2 SEC (9.8-11.6)
[2017-05-29 14:12] LABS: ALT (GPT) 43 U/L (10-53); AST (GOT) 31 U/L (15-37); GLOMERULAR FILTRATION RATE 75 ML/MIN (>89)
[2017-05-29 14:14] LABS: TOTAL BILIRUBIN ADULT 0.5 MG/DL (0.2-1.0)
[2017-05-29 14:15] LABS: ALKALINE PHOSPHATASE 219 U/L (45-117); CREATINE KINASE 129 U/L (26-192)
[2017-05-29] MEDS ORDERED: PRED50 PO (14:45)
[2017-05-29] MEDS ORDERED: LORA-474 PO (14:45)
[2017-05-29] MEDS ORDERED: LEVA500T20 PO (14:45)
--- NOTE | 2017-05-30 13:52 | EKG ---
Date Performed: 05/29/2017 Time Performed: 13:28:59 PTAGE: 67 years EKG: Sinus rhythm NONSPECIFIC T-WAVE ABNORMALITY BORDERLINE ECG PREVIOUS TRACING : 04/20/2017 04.48 Since the prior tracing, there has been improvement in the diffuse nonspecific ST-T wave changes. DOCTOR: Odalys Delaney Interpretating Date/Time 05/30/2017 13:51:54
[2017-07-03] MEDS ORDERED: FURO40TA PO (16:49)
[2017-07-03] MEDS ORDERED: POTA1TAB4 PO (16:49)
[2017-07-03] MEDS ORDERED: PRAV40TA2 PO (16:49)
[2017-07-03] MEDS ORDERED: PRAM0.5T PO (16:49)
[2017-07-03] MEDS ORDERED: LISI-519 PO (16:49)
[2017-07-03] MEDS ORDERED: METO25TA3 PO (16:49)
[2017-07-17] MEDS ORDERED: ERGO1CAP30 PO (14:22)
[2017-07-17] MEDS ORDERED: TRIA.1%T TOPICAL (14:26)
[2017-07-31] MEDS ORDERED: PRAM0.5T PO (11:32)
[2017-07-31] MEDS ORDERED: PNEU13P IM (11:56)
== END 2017-05-29 15:26 | disposition home or self-care (01) ==
LOC: PHED 12:06
DX: J44.1 Chronic obstructive pulmonary disease with (acute) exacerbation (principal); I50.9 Heart failure, unspecified; Z72.0 Tobacco use
CPT/HCPCS: 71010; 80053; 82550; 82552; 83880; 84484; 85025; 85610; 85730; 93005; 94640; 94664; 96374; 96375; 99285; J2060; J2930

== ENCOUNTER → 2017-12-28 | Outpatient (CLI) | payer MEDICARE ==
[~2017-12-28] MED LIST changes: +ASPI-516 CHEW; -ASPI81CH CHEW; +FLUT50SP EACH NARE; -IPRA17I INH; +LEVO1CAP PO; -LEVO1CAP3 PO; +LORA-474 PO; +METH4PAK PO; +OXYB5TAB8 PO; -PULM180I INH; +TRIA.1%T TOPICAL; +VITA200013 PO; +[UNRECOGNIZED DRUG - CODE] PO
--- NOTE | 2017-12-28 15:58 | RADRPT ---
EXAM DATE/TIME: 12/28/2017 00:00 [facility] COMPARISON: No previous studies available for comparison. INDICATIONS : CT guided biopsy of the left femoral shaft lytic mass The patient studies were reviewed. The lesion in question involving the left proximal femur is too sm all and too deep to biopsy percutaneously at present. Greg Quan MD on December 28, 2017 at 15:56 Board Certified Radiologist. This report was verified electronically.
== END ==
LOC: HRAD 15:26
PROVIDERS: ATTEND Internal Medicine Hematology & Oncology
DX: M89.9 Disorder of bone, unspecified (principal)

== ENCOUNTER 2018-01-23 17:08 | Inpatient (IN) | payer MEDICARE ==
[~2018-01-23] VITALS: Ht 175.3 cm; Wt 123.2 kg
[2018-01-23] MEDS ORDERED: GADODIAMIDE PF 287 MG/ML 5 ML VIAL (for RAD MRI) IVCONTRAST ONE (17:09)
[2018-01-23] MEDS ORDERED: GADODIAMIDE PF 287 MG/ML 20 ML VIAL (for RAD MRI) IVCONTRAST ONE (17:09)
[2018-01-23 17:20] VITALS: BP 153/71; PULSE 65; RESP 18; TEMP 98.2; O2SAT 98
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
[2018-01-23 19:27] VITALS: BP 126/57; PULSE 60; RESP 20; O2SAT 100
[2018-01-23 19:28] LABS: AUTOMATED NEUTROPHIL # 5.3 TH/MM3 (1.8-7.7); BASOPHIL # 0.1 TH/MM3 (0-0.2); BASOPHIL % 0.8 % (0.0-2.0); EOSINOPHIL # 0.5 TH/MM3 (0-0.4); EOSINOPHIL % 5.4 % (0.0-4.0); HEMATOCRIT 38.1 % (35.0-46.0); HEMOGLOBIN 12.6 GM/DL (11.6-15.3); LYMPHOCYTE # 2.4 TH/MM3 (1.0-4.8); MEAN CELL VOLUME 79.8 FL (80.0-100.0); MEAN CORPUSCULAR HEMOGLOBIN 26.5 PG (27.0-34.0); MEAN CORPUSCULAR HGB CONC 33.2 % (32.0-36.0); MONO % 7.9 % (0.0-8.0); MONOCYTE # 0.7 TH/MM3 (0-0.9); NEUT % 58.9 % (16.0-70.0); PLATELET COUNT 288 TH/MM3 (150-450); RED BLOOD COUNT 4.77 MIL/MM3 (4.00-5.30); RED CELL DISTRIBUTION WIDTH 17.4 % (11.6-17.2)
[2018-01-23] MEDS ORDERED: ONDANSETRON HCL 4 MG/2 ML VIAL IV PUSH ONE (19:30)
[2018-01-23] MEDS ORDERED: MORPHINE SULFATE 2 MG/ML SYRINGE IV PUSH ONE (19:30)
[2018-01-23 21:12] LABS: PROTHROMBIN TIME - PATIENT 10.3 SEC (9.8-11.6)
[2018-01-23 21:13] LABS: ALBUMIN 3.8 GM/DL (3.4-5.0); ALT (GPT) 34 U/L (10-53); AST (GOT) 32 U/L (15-37); BICARBONATE 23.3 MEQ/L (21.0-32.0); BLOOD UREA NITROGEN 21 MG/DL (7-18); CALCIUM 9.3 MG/DL (8.5-10.1); CHLORIDE 106 MEQ/L (98-107); CREATININE 1.13 MG/DL (0.50-1.00); GLOMERULAR FILTRATION RATE 48 ML/MIN (>89); GLUCOSE,RANDOM 120 MG/DL (74-106); SODIUM (NA) 139 MEQ/L (136-145)
[2018-01-23 21:23] LABS: ALKALINE PHOSPHATASE 254 U/L (45-117); TOTAL BILIRUBIN ADULT 0.3 MG/DL (0.2-1.0)
--- NOTE | 2018-01-23 22:53 | RADRPT ---
EXAM DATE/TIME: 01/23/2018 21:35 [facility] COMPARISON: CT PULMONARY ANGIOGRAM, April 19, 2017, 18:11. INDICATIONS : Mass. C7 possible mass. CONTRAST: 25 cc Omniscan (gadodiamide) IV MEDICAL HISTORY : Carcinoma, breast. Hypercholesterolemia. Baretts Esophagus . SURGICAL HISTORY : Total knee replacement, left. Total knee replacement, right. Mastectomy, left. Left femur sx. ENCOUNTER: Initial ACUITY: 1 day PAIN SCORE: 2/10 LOCATION: Bilateral neck region. TECHNIQUE: Multiplanar, multisequence MRI examination of the cervical spine was performed. FINDINGS: Limited study due to motion artifact. VERTEBRAE: Normal vertebral body height. Homogeneous marrow signal. ALIGNMENT: No evidence of subluxation. CORD: Normal configuration and signal. POST FOSSA: The cerebellar tonsils are normal in position. POST-CONTRAST: There is enhancement of C6 vertebral body and posterior elements. There is also enhancement of the po sterior elements at C5. There does appear to be involvement of the epidural space at C6. C2-C3: The thecal sac has a normal configuration. There is no evidence of disc herniation or spinal canal stenosis. The neural foramina are patent bilaterally. C3-C4: Mild broad-based disc bulge abuts the ventral thecal sac and ventral cord. Mild canal stenosis. Mild bilateral neural foraminal narrowing. C4-C5: Mild broad-based disc bulge abuts the ventral thecal sac and ventral cord. Mild canal stenosis. Mild bilateral neural foraminal narrowing. C5-C6: Mild broad-based disc bulge abuts the ventral thecal sac and ventral cord. Mild canal stenosis. Mild bilateral neural foraminal narrowing. C6-C7: The thecal sac has a normal configuration. There is no evidence of disc herniation or spinal canal s tenosis. The neural foramina are patent bilaterally. C7-T1: The thecal sac has a normal configuration. There is no evidence of disc herniation or spinal canal s tenosis. The neural foramina are patent bilaterally. CONCLUSION: 1. Enhancement of C6 vertebral body and posterior elements consistent with mass. There is also enhanc ement of posterior elements of C5. 2. Multilevel disc bulges and canal stenosis as described above. Noam Ascencio MD on January 23, 2018 at 22:44 Board Certified Radiologist. This report was verified electronically.
[2018-01-23 23:00] VITALS: BP 123/60; PULSE 60; RESP 20; O2SAT 98
[2018-01-23] MEDS ORDERED: DEXAMETHASONE SOD PHOS 4 MG/ML VIAL IV PUSH ONE (23:30)
[2018-01-23] MEDS: SODIUM CHLOR 0.9% 1000 ML INJ 1,000 ML IV SCH (23:35)
[2018-01-23] MEDS ORDERED: MAGNESIUM OXIDE 400 MG TAB PO PRN (23:45)
[2018-01-23] MEDS ORDERED: MAGNESIUM HYDROXIDE SUSP 30 ML CUP PO PRN (23:45)
[2018-01-23] MEDS ORDERED: LACTULOSE SYRUP 20 GM/30 ML CUP PO PRN (23:45)
[2018-01-23] MEDS ORDERED: POTASSIUM PHOSPHATE MONOBASIC 500 MG TAB PO/TUBE PRN (23:45)
[2018-01-23] MEDS ORDERED: SENNOSIDES 8.6 MG TAB PO PRN (23:45)
[2018-01-23] MEDS ORDERED: RESP: ALBUTEROL 2.5 MG/3 ML NEB (PRN) INH (23:45)
[2018-01-23] MEDS ORDERED: SODIUM CHLORIDE 0.9% FLUSH 10 ML FLUSH IV FLUSH PRN (23:45)
[2018-01-23] MEDS ORDERED: BISACODYL 10 MG SUPP RECTAL PRN (23:45)
[2018-01-23] MEDS ORDERED: MAGNESIUM SULFATE INJ 2 GM in SODIUM CHLORIDE 0.9% INJ 96 ML IV PRN (23:45)
[2018-01-23] MEDS ORDERED: POTASSIUM CHLOR 20 MEQ PREMIX 100 ML IV PRN ×2 (23:45)
[2018-01-23] MEDS ORDERED: MAGNESIUM SULFATE INJ 4 GM in SODIUM CHLORIDE 0.9% INJ 92 ML IV PRN (23:45)
[2018-01-23] MEDS ORDERED: DEXTROSE 50% IN WATER 50 ML VIAL(D50) IV PUSH PRN (23:45)
[2018-01-23] MEDS ORDERED: SODIUM PHOSPHATE INJ 30 MMOL in SODIUM CHLOR 0.9% 250 ML INJ 240 ML IV PRN (23:45)
[2018-01-23] MEDS ORDERED: POTASSIUM CHLOR 40 MEQ PREMIX 100 ML IV PRN ×2 (23:45)
[2018-01-23] MEDS ORDERED: ACETAMINOPHEN 325 MG TAB PO PRN (23:45)
[2018-01-23] MEDS ORDERED: POTASSIUM PHOSPHATE INJ 30 MMOL in SODIUM CHLOR 0.9% 250 ML INJ 250 ML IV PRN (23:45)
[2018-01-23] MEDS ORDERED: ONDANSETRON HCL 4 MG/2 ML VIAL IV PUSH PRN (23:45)
[2018-01-23] MEDS ORDERED: CHLORHEXIDINE GLUCONATE 2 % 1 PACK (2 CLOTHS) TOP PRN (23:45)
[2018-01-23] MEDS ORDERED: POTASSIUM PHOSPHATE MONOBASIC 500 MG TAB PO PRN (23:45)
[2018-01-23] MEDS ORDERED: POTASSIUM CHLORIDE 25 MEQ EFFERVESCENT TAB PO PRN (23:45)
[2018-01-23] MEDS ORDERED: MISCELLANEOUS NURSING INFORMATION XX SCH (23:45)
[2018-01-23] MEDS ORDERED: GLUCAGON 1 MG/ML VIAL OTHER PRN (23:45)
--- NOTE | 2018-01-23 23:49 | HHI.HP ---
[facility] Service Critical Care Medicine Primary Care Physician MERLENE Bob Admission Diagnosis C6 mass; h/o breast cancer Diagnosis: (1) Breast cancer in female Diagnosis: Principal (2) Cervical spinal mass Diagnosis: Principal (3) Gastroesophageal reflux disease Diagnosis: Secondary (4) Essential hypertension Diagnosis: Secondary (5) Restrictive lung disease Diagnosis: Secondary (6) BMI 40.0-44.9, adult Diagnosis: Principal (7) Hyperlipidemia Diagnosis: Secondary (8) Left hip pain Diagnosis: Principal (9) Elevated alkaline phosphatase level Diagnosis: Secondary (10) Psoriasis Diagnosis: Secondary (11) Vitamin D deficiency Diagnosis: Secondary Chief Complaint: Presents from office Dr. Zuñiga with a positive PET scan for possible cervical mass Travel History International Travel<30 Days: No Contact w/Intl Traveler <30 Da: No Traveled to Known Affected Are: No History of Present Illness This is a 67-year-old female. The admission 01/23/2018. Past medical history includes breast cancer/invasive lobular 08/23 T1 N1 M0 estrogen/ progesterone positive HER-2/jack negative. She is undergone a left mastectomy with lymph node resection, morbid obesity, depression, hypertension, dyslipidemia, psoriasis restrictive lung disease. She follows with Dr. Dillard for cardiology for heart murmur along with Dr. Brooks for her restrictive lung disease/pulmonology. Her oncologist is Dr. Zuñiga. For the past several months, patient is experiencing tingling sensations involving the thumb and first finger of her left upper extremity along with pain in her right shoulder/forearm. She seen a chiropractor. She has had multiple imaging done which revealed possible metastases to her left iliac crest initially. She recently had a PET scan which was read as possible cervical spine metastasis. MRI of the C-spine performed feel the C6 vertebral body enhancement with a posterior mass with multiple areas of disc protrusion. Dr. Figueroa was notified/ neurosurgery. Recommended Decadron and placed in the Bollinger collar. He will evaluate patient in a.m. Dr. Zuñiga will be notified/or oncologist. She is hemodynamically stable. Complaining of some numbness/tingling in her left upper extremity only left thumb/finger. No focal neurological deficits as far strength is concerned. Full range of motion but painful to movement. Review of Systems Constitutional: COMPLAINS OF: Fatigue, Weight loss, DENIES: Fever, Weight gain Endocrine: DENIES: Abnorml menstrual pattern Eyes: DENIES: Blurred vision Ears, nose, mouth, throat: DENIES: Tinnitus Respiratory: DENIES: Apneas Cardiovascular: DENIES: Chest pain Gastrointestinal: DENIES: Abdominal pain Genitourinary: DENIES: Urinary frequency Musculoskeletal: COMPLAINS OF: Joint pain, Muscle aches, Neck pain, DENIES: Stiffness, Back pain Hematologic/lymphatic: DENIES: Bruising Immunologic/allergic: DENIES: Eczema Neurologic: COMPLAINS OF: Headache, DENIES: Abnormal gait Psychiatric: DENIES: Anxiety, Confusion Past Family Social History Allergies: Coded Allergies: hydromorphone (Verified Allergy, Mild, Hallucinations, 10/12/17) Past Medical History Morbid obesity Gastroesophageal reflux disease Osteoporosis/osteoarthritis Overactive bladder Hypertension Dyslipidemia Psoriasis Restrictive lung disease Invasive lobular carcinoma the left breast T2 N1 M0 estrogen/progesterone positive HER-2/jack negative Depression Allergic rhinitis Chronic diastolic heart failure? Past Surgical History Bilateral total knee replacements Left femur ORIF Left meniscectomy with lymph node resection Left breast biopsy Reported Medications Albuterol/ipratropium aerosols every 4 hours Albuterol 18 g 1 inhalation every 6 hours Pravastatin 40 mg p.o. daily Metoprolol tartrate 25 mg p.o. daily Aspirin 81 mg p.o. daily Lisinopril 5 mg p.o. daily Levomilnacipran 120 mg p.o. daily Lorazepam 1 mg at night Pramipexole 1 mg at night Potassium chloride 20 mEq daily Furosemide 60 mg p.o. daily Fluticasone 50 mcg inhalation twice daily Anastrozole 1 mg p.o. daily orlistat 120 mg p.o. 3 times daily Omeprazole 40 mg p.o. daily Oxybutynin 5 mg p.o.2 times daily Cholecalciferol 2000 units p.o. daily Triamcinolone cream apply to affected areas Active Ordered Medications Reviewed in EMR Family History Mother at age 67 and a history of fibrosarcoma Father at age 72 of liver cancer Maternal grandmother age 40 from breast cancer. Social History One half pack per day 40 years. Rare alcohol use. Denies illicit drug use. 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 Physical Exam Vital Signs Vital Signs Date Time Temp Pulse Resp B/P (MAP) Pulse Ox O2 Delivery O2 Flow Rate FiO2 01/23/18 23:00 60 20 123/60 (81) 98 01/23/18 19:27 60 20 126/57 (80) 100 Room Air 01/23/18 17:20 98.2 65 18 153/71 (98) 98 Physical Exam GENERAL: 67-year-old female currently resting in bed in no acute distress SKIN: Warm and dry. HEAD: Atraumatic. Normocephalic. EYES: Pupils equal and round. No scleral icterus. No injection or drainage. ENT: No nasal bleeding or discharge. Mucous membranes pink and moist. NECK: Trachea midline. No JVD. In Bollinger collar CARDIOVASCULAR: Regular rate and rhythm. S1, S3 no S4. 2/6 systolic murmur RESPIRATORY: No accessory muscle use. Clear to auscultation. Breath sounds equal bilaterally. GASTROINTESTINAL: Abdomen soft, non-tender, nondistended. Hepatic and splenic margins not palpable. MUSCULOSKELETAL: Extremities with trace nonpitting peripheral edema. No obvious deformities. NEUROLOGICAL: Awake and alert. No obvious cranial nerve deficits. Motor grossly within normal limits. Five out of 5 muscle strength in the arms and legs. Normal speech. Decreased sensation to light touch and pinprick over left thumb/index finger. PSYCHIATRIC: Appropriate mood and affect; insight and judgment normal. Laboratory Laboratory Tests Test 01/23/18 19:10 01/23/18 20:05 White Blood Count 9.0 Red Blood Count 4.77 Hemoglobin 12.6 Hematocrit 38.1 Mean Corpuscular Volume 79.8 Mean Corpuscular Hemoglobin 26.5 Mean Corpuscular Hemoglobin Concent 33.2 Red Cell Distribution Width 17.4 Platelet Count 288 Mean Platelet Volume 9.0 Neutrophils (%) (Auto) 58.9 Lymphocytes (%) (Auto) 27.0 Monocytes (%) (Auto) 7.9 Eosinophils (%) (Auto) 5.4 Basophils (%) (Auto) 0.8 Neutrophils # (Auto) 5.3 Lymphocytes # (Auto) 2.4 Monocytes # (Auto) 0.7 Eosinophils # (Auto) 0.5 Basophils # (Auto) 0.1 CBC Comment DIFF FINAL Differential Comment Prothrombin Time 10.3 Prothromb Time International Ratio 1.0 Activated Partial Thromboplast Time 27.4 Blood Urea Nitrogen 21 Creatinine 1.13 Random Glucose 120 Total Protein 8.0 Albumin 3.8 Calcium Level 9.3 Magnesium Level 2.0 Alkaline Phosphatase 254 Aspartate Amino Transf (AST/SGOT) 32 Alanine Aminotransferase (ALT/SGPT) 34 Total Bilirubin 0.3 Sodium Level 139 Potassium Level 3.7 Chloride Level 106 Carbon Dioxide Level 23.3 Anion Gap 10 Estimat Glomerular Filtration Rate 48 Thyroid Stimulating Hormone 3rd Gen 1.890 Result Diagram: 01/23/18 1910 01/23/182004 Imaging Last Impressions Cervical Spine MRI 01/23/18 0000 Signed Impressions: Service Date/Time: Tuesday, January 23, 2018 21:35 - CONCLUSION: 1. Enhancement of C6 vertebral body and posterior elements consistent with mass. There is also enhancement of posterior elements of C5. 2. Multilevel disc bulges and canal stenosis as described above. Noam Ascencio MD Septic Shock Reassessment Septic shock perfusion: reassessment completed Caprini VTE Risk Assessment Caprini VTE Risk Assessment: Mod/High Risk (score >= 2) Caprini Risk Assessment Model Point Value = 1 Point Value = 2 Point Value = 3 Point Value = 5 Age 41-60 Minor surgery BMI > 25 kg/m2 Swollen legs Varicose veins or History of unexplained or recurrent spontaneous Oral contraceptives or hormone replacement Sepsis (< 1 month) Serious lung disease, including pneumonia (< 1 month) Abnormal pulmonary function Acute myocardial infarction Congestive heart failure (< 1 month) History of inflammatory bowel disease Medical patient at bed rest Age 61-74 Arthroscopic surgery Major open surgery (> 45 min) Laparoscopic surgery (> 45 min) Malignancy Confined to bed (> 72 hours) Immobilizing plaster cast Central venous access Age >= 75 History of VTE Family history of VTE Factor V Leiden Prothrombin 44373G Lupus anticoagulant Anticardiolipin antibodies Elevated serum homocysteine Heparin-induced thrombocytopenia Other congenital or acquired thrombophilia Stroke (< 1 month) Elective arthroplasty Hip, pelvis, or leg fracture Acute spinal cord injury (< 1 month) Prophylaxis Regimen Total Risk Factor Score Risk Level Prophylaxis Regimen 0-1 Low Early ambulation 2 Moderate Order ONE of the following: *Sequential Compression Device (SCD) *Heparin 5000 units SQ BID 3-4 Higher Order ONE of the following medications: *Heparin 5000 units SQ TID *Enoxaparin/Lovenox 40 mg SQ daily (WT < 150 kg, CrCl > 30 mL/min) *Enoxaparin/Lovenox 30 mg SQ daily (WT < 150 kg, CrCl > 10-29 mL/min) *Enoxaparin/Lovenox 30 mg SQ BID (WT < 150 kg, CrCl > 30 mL/min) AND/OR *Sequential Compression Device (SCD) 5 or more Highest Order ONE of the following medications: *Heparin 5000 units SQ TID (Preferred with Epidurals) *Enoxaparin/Lovenox 40 mg SQ daily (WT < 150 kg, CrCl > 30 mL/min) *Enoxaparin/Lovenox 30 mg SQ daily (WT < 150 kg, CrCl > 10-29 mL/min) *Enoxaparin/Lovenox 30 mg SQ BID (WT < 150 kg, CrCl > 30 mL/min) AND *Sequential Compression Device (SCD) Assessment and Plan Assessment and Plan Neuro/Psych: C6 vertebral body mass Depression disorder NOS MRI C-spine revealed C6 vertebral body enhancement with posterior mass likely. Posterior enhancement of C5 vertebral body. Multiple areas of disc protrusion and canal stenosis identified Dr. Figueroa notified. Recommend dexamethasone 6 mg IV 1 x 4 mg every 6 hours. Bollinger collar placement. Consultation in a.m. Resume levomilnacipran 120 mg. Daily/depression Acetaminophen 650 mg every 6 hours as needed fever/pain 1 through 10 Morphine sulfate 2 mg IV every 3 hours as needed breakthrough pain. Noted allergy to hydromorphone is adverse reaction/hallucinations according to patient Holding lorazepam 1 mg at night. Resume pramipexole 1 mg daily CV: Hypertension Dyslipidemia Resume metoprolol 25 mg p.o. daily for hypertension along with lisinopril 5 mg daily. Holding pravastatin 40 mg p.o. daily for dyslipidemia. Resume clinically indicated Holding aspirin [address] 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 Echocardiogram 04/24 revealed essentially normal LV function. No regional wall motion abnormalities. Resume furosemide 60 mg by mouth daily and potassium chloride 20 mEq by mouth p.o. 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 3 times daily. On pantoprazole 40 mg IV daily. On omeprazole 40 mg by mouth daily at home Docusate sodium/senna 1 tablet twice daily for bowel regimen : Overflow incontinence Continue oxybutynin 5 mg p.o. twice daily Endo: Hyperglycemia Sliding scale insulin Accu-Cheks to maintain euglycemia/AC/at bedtime with median Novulin R sliding-scale while on steroids TSH 1.8 Renal: Creatinine slightly elevated 1.1 Monitor urine output Accurate I's and O Heme: History of invasive lobular carcinoma of the left breast T2 N1 M0 estrogen saturation positive hernia negative currently on anastrozole 1 mg p.o. daily Microcytosis Counseled Dr. Zuñiga management ID: Monitor for infection MSK: Psoriasis Continue triamcinolone cream PT/OT evaluate and treat FEN: Replace electrolytes as clinically indicated Access -Utilize peripheral IV. Central line if indicated Prophylaxis -GI -pantoprazole -DVT -SCD/heparin subcu Level 3 admission Code Status Full code Discussed Condition With Patient. Dr. King/ED physician. Care plan discussed and all questions answered Problem Qualifiers (1) Breast cancer in female: Qualified Codes: C50.912 - Malignant neoplasm of unspecified site of left female breast; Z17.0 - Estrogen receptor positive status [ER+] (2) Hyperlipidemia: Qualified Codes: E78.00 - Pure hypercholesterolemia, unspecified Adonay Montiel MD Jan 23, 2018 23:49
[2018-01-24] VITALS (16 sets, daily range): BP systolic 112–153; BP diastolic 53–98; PULSE 64–86; RESP 19–39; TEMP 97.9–99; O2SAT 90–99
[2018-01-24] MEDS: RESP: ALBUTEROL 2.5 MG/IPRATROPIUM 0.5 MG NEB (SCH) NEB ×6 (01:15→20:00)
[2018-01-24] MEDS: HEPARIN SODIUM - SQ 10,000 UNITS/ML VIAL SQ SCH ×2 (01:35→12:00)
[2018-01-24] MEDS: CHLORHEXIDINE GLUCONATE 2 % 1 PACK (2 CLOTHS) TOP SCH (04:00)
--- NOTE | 2018-01-24 04:01 | RADRPT ---
EXAM DATE/TIME: 01/24/2018 02:59 [facility] COMPARISON: CHEST SINGLE AP, April 19, 2017, 16:38. CT PULMONARY ANGIOGRAM, April 19, 2017, 18:11. CHEST SINGLE A P, May 29, 2017, 13:23. INDICATIONS : Short of breath. MEDICAL HISTORY : Chronic obstructive pulmonary disease. SURGICAL HISTORY : None. ENCOUNTER: Subsequent ACUITY: 2 days PAIN SCORE: 0/10 LOCATION: Bilateral chest FINDINGS: A single view of the chest demonstrates the lungs to be symmetrically aerated without evidence of mas s, infiltrate or effusion. The cardiomediastinal contours are unremarkable. Osseous structures are intact. CONCLUSION: No evidence of acute cardiopulmonary disease. Greg Delacruz MD on January 24, 2018 at 3:59 Board Certified Radiologist. This report was verified electronically.
[2018-01-24] MEDS: DEXAMETHASONE SOD PHOS 4 MG/ML VIAL IV PUSH SCH ×4 (05:18→18:38)
[2018-01-24 05:48] LABS: INTERNATIONAL NORMALIZED RATIO 1.1 RATIO; PROTHROMBIN TIME - PATIENT 10.7 SEC (9.8-11.6)
[2018-01-24 05:59] LABS: AUTOMATED NEUTROPHIL # 5.7 TH/MM3 (1.8-7.7); BASOPHIL % 0.4 % (0.0-2.0); EOSINOPHIL % 0.3 % (0.0-4.0); HEMATOCRIT 34.4 % (35.0-46.0); HEMOGLOBIN 11.2 GM/DL (11.6-15.3); LYMPH % 16.3 % (9.0-44.0); LYMPHOCYTE # 1.1 TH/MM3 (1.0-4.8); MEAN CELL VOLUME 80.5 FL (80.0-100.0); MEAN CORPUSCULAR HEMOGLOBIN 26.3 PG (27.0-34.0); MEAN CORPUSCULAR HGB CONC 32.6 % (32.0-36.0); MEAN PLATELET VOLUME 8.4 FL (7.0-11.0); MONO % 1.4 % (0.0-8.0); MONOCYTE # 0.1 TH/MM3 (0-0.9); NEUT % 81.6 % (16.0-70.0); PLATELET COUNT 191 TH/MM3 (150-450); RED BLOOD COUNT 4.28 MIL/MM3 (4.00-5.30); RED CELL DISTRIBUTION WIDTH 17.3 % (11.6-17.2)
[2018-01-24 06:08] LABS: ALBUMIN 3.5 GM/DL (3.4-5.0); AST (GOT) 38 U/L (15-37); BICARBONATE 23.9 MEQ/L (21.0-32.0); BLOOD UREA NITROGEN 20 MG/DL (7-18); CALCIUM 8.7 MG/DL (8.5-10.1); CHLORIDE 107 MEQ/L (98-107); CREATININE 1.06 MG/DL (0.50-1.00); GLOMERULAR FILTRATION RATE 52 ML/MIN (>89); GLUCOSE,RANDOM 133 MG/DL (74-106); SODIUM (NA) 138 MEQ/L (136-145)
[2018-01-24 06:10] LABS: ALT (GPT) 33 U/L (10-53); PHOSPHORUS 4.1 MG/DL (2.5-4.9)
[2018-01-24 06:12] LABS: ALKALINE PHOSPHATASE 215 U/L (45-117); TOTAL BILIRUBIN ADULT 0.5 MG/DL (0.2-1.0); TOTAL PROTEIN 7.3 GM/DL (6.4-8.2)
--- NOTE | 2018-01-24 07:50 | PD.CONS ---
History of Present Illness Service Hematology/oncology Consult Requested By Critical care service Reason for Consult Patient with personal history of breast carcinoma now with radiographic evidence of metastatic disease to the cervical and thoracic vertebral bodies. Primary Care Physician MERLENE Bob Diagnoses: (1) History of breast cancer History of Present Illness Chief Complaint: Chronic pain in the lower neck. Pain radiating down the shoulders down to the hands. HPI: Ms. 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 She presently lives at home with her sister who is legally blind, Ms. Sellers is a primary caregiver for her sister. The patient was diagnosed in the August 2015 with a locally advanced invasive lobular carcinoma of the left breast. She underwent surgical resection and was found to have pathologic stage T2 N1(tn ) [facility] 0 disease, her disease was strongly positive for estrogen receptor expression of greater than 90%, strongly positive for progesterone receptor expression at greater than 90% and HER-2 not amplified. She will underwent surgical resection while she still lived in [facility] and subsequently was evaluated by her medical oncologist who was at [address] [facility] ([facility]), she underwent Oncotype DX recurrence score testing and was found to have a low score. The patient was recommended adjuvant endocrine therapy with anastrozole alone by Dr. Mary Engel. I did review the original pathology reports from [place] and it appears her primary tumor measured 2.5 cm in largest dimension and she had microscopic involvement of the sentinel lymph nodes. The patient was initially seen by me in July 2017 was recommended continuation of adjuvant endocrine therapy with anastrozole. About a month and a half ago the patient reports having developed pain in her hip, I believe she fell and was evaluated at [facility] with imaging studies including CT of the pelvis. On the CT scan of the pelvis she was noted to have lytic lesions involving the shaft of the proximal left femur. Findings were concerning for metastatic disease. She subsequently underwent a bone scan which revealed some abnormal findings in that area and she was recommended image guided biopsy. Image guided biopsy was technically difficult due to the small size of the lytic lesion as well as the depth from the skin. She was recommended a PET CT scan which was performed on 01/22/2018. PET/CT scan revealed extensive metastatic disease burden involving the entire C7 vertebral body. I received a phone call from the interpreting radiologist who expressed his concern of pathologic fracture with resultant quadriplegia and spinal cord compromise. The patient was therefore contacted and advised to come in directly to the emergency department for stabilization and evaluation by neurosurgery. An MRI of the C-spine was performed on 01/23/2018 and this confirmed presence of extensive metastatic disease to the C7 vertebral body. Review of Systems Constitutional: COMPLAINS OF: Fatigue, DENIES: Diaphoretic episodes, Fever, Weight gain, Weight loss, Chills, Dizziness, Change in appetite, Night Sweats Endocrine: DENIES: Abnorml menstrual pattern, Heat/cold intolerance, Polydipsia , Polyuria, Polyphagia Eyes: DENIES: Blurred vision, Diplopia, Eye inflammation, Eye pain, Vision loss , Photosensitivity, Double Vision Ears, nose, mouth, throat: DENIES: Tinnitus, Hearing loss, Vertigo, Nasal discharge, Oral lesions, Throat pain, Hoarseness, Ear Pain, Running Nose, Epistaxis, Sinus Pain, Toothache, Odynophagia Respiratory: COMPLAINS OF: Cough, Shortness of breath, DENIES: Apneas, Snoring , Wheezing, Hemoptysis, Sputum production Cardiovascular: COMPLAINS OF: Dyspnea on Exertion, Lower Extremity Edema ( Chronic lower extremity edema.), DENIES: Chest pain, Palpitations, Syncope, PND , Orthopnea, Claudication Gastrointestinal: DENIES: Abdominal pain, Black stools, Bloody stools, Constipation, Diarrhea, Nausea, Vomiting, Difficulty Swallowing, Anorexia Genitourinary: DENIES: Abnormal vaginal bleeding, Dysmenorrhea, Dyspareunia, Sexual dysfunction, Urinary frequency, Urinary incontinence, Urgency, Hematuria , Dysuria, Nocturia, Vaginal discharge Musculoskeletal: COMPLAINS OF: Joint pain, Muscle aches, Stiffness, Neck pain, DENIES: Joint Swelling, Back pain Integumentary: DENIES: Abnormal pigmentation, Pruritus, Rash, Nail changes, Breast masses, Breast skin changes, Nipple discharge Hematologic/lymphatic: DENIES: Bruising, Lymphadenopathy Immunologic/allergic: DENIES: Eczema, Urticaria Neurologic: COMPLAINS OF: Abnormal gait, Headache, Paresthesias, Poor Balance, DENIES: Localized weakness, Seizures, Speech Problems, Tremor Psychiatric: COMPLAINS OF: Anxiety, Confusion, Depression, DENIES: Mood changes , Hallucinations, Agitation, Suicidal Ideation, Homicidal Ideation, Delusions Except as stated in HPI: all other systems reviewed are Neg Past Family Social History Allergies: Coded Allergies: hydromorphone (Verified Allergy, Mild, Hallucinations, 10/12/17) Past Medical History Invasive lobular carcinoma of the left breast. Hypertension Ongoing tobaccoism Obesity Psoriasis Restrictive lung disease Past Surgical History Image guided left breast mass biopsy Left breast mastectomy with left axillary lymph node sampling Left femur ORIF Left knee TKA Right knee TKA Active Ordered Medications Magnesium and potassium replacement protocols. Normal saline 84 cc/h DuoNeb 1 amp every 4 hours as needed Albuterol 2.5 mg inhaled every 2 hours as needed for shortness of breath or wheezing. REM index 1 mg p.o. daily Dulcolax suppository 10 mg per rectum as needed for severe constipation. Vitamin D3 2000 units p.o. daily Dexamethasone 6 million g IV 1. Dexamethasone 4 mg IV every 6 hours Fluticasone nasal spray in each naris twice daily Lasix 60 mg p.o. daily Lactulose 30 mL p.o. daily Medium Novolin insulin R sliding scale per protocol Metoprolol 25 mg p.o. daily Morphine sulfate 2-4 mg IV every 3 hours as needed for breakthrough pain Zofran 4 mg IV every 6 hours as needed for nausea and vomiting Oxybutynin 5 mg p.o. every 12 hours. Pantoprazole 40 mg IV daily Senokot 17.2 mg p.o. every 12 hours needed for moderate constipation. Triamcinolone application to involved areas with psoriasis as needed twice daily Family History Mother at the age of 67 of a history of fibrosarcoma. Father at the age of 72 of liver cancer. Total grandmother at the age of 40 from breast cancer. 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 She has no children of her own. She reports smoking about half pack a day for the past 40 years. She drinks alcohol occasionally. She currently lives at home with her sister who is legally blind. The patient reports having generally sedentary lifestyle. Gynecologic history: She is postmenopausal, she is 0. Physical Exam Vital Signs Vital Signs Date Time Temp Pulse Resp B/P (MAP) Pulse Ox O2 Delivery O2 Flow Rate FiO2 01/24/18 06:00 75 01/24/18 04:00 98.0 73 39 115/55 (75) 95 01/24/18 04:00 73 4/18/18 02:40 90 Nasal Cannula 2.00 01/24/18 02:00 69 01/24/18 01:00 97.9 64 24 112/53 (72) 99 01/24/18 00:48 01/23/18 23:00 60 20 123/60 (81) 98 01/23/18 19:27 60 20 126/57 (80) 100 Room Air 01/23/18 17:20 98.2 65 18 153/71 (98) 98 Physical Exam GENERAL: Middle-aged lady, laying in bed, she has a c-collar on. She appears to be no acute distress. She speaks to me in full sentences. She is alert and oriented 3. SKIN: Psoriasis, mostly noted on the extensor surfaces. HEAD: Atraumatic. Normocephalic. No temporal or scalp tenderness. EYES: Pupils equal round and reactive. Extraocular motions intact. No scleral icterus. No injection or drainage. ENT: Nose without bleeding, purulent drainage or septal hematoma. Throat without erythema, tonsillar hypertrophy or exudate. Uvula midline. Airway patent. NECK: Trachea midline. No JVD or lymphadenopathy. Supple, nontender, no meningeal signs. CARDIOVASCULAR: Regular rate and rhythm without murmurs, gallops, or rubs. RESPIRATORY: Clear to auscultation. Breath sounds equal bilaterally. No wheezes , rales, or rhonchi. Decreased bibasilar breath sounds GASTROINTESTINAL: Obese abdomen, soft, non-tender, nondistended. No hepato- splenomegaly, or palpable masses. No guarding. MUSCULOSKELETAL: Extremities without clubbing, cyanosis, or edema. No joint tenderness, effusion, or edema noted. No calf tenderness. Negative Homans sign bilaterally. NEUROLOGICAL: Awake and alert. Cranial nerves II through XII intact. Motor and sensory grossly within normal limits. Five out of 5 muscle strength in all muscle groups. Normal speech. Laboratory Laboratory Tests Test 01/23/18 19:10 01/23/18 20:05 01/24/18 01:00 01/24/18 05:00 White Blood Count 9.0 Red Blood Count 4.77 Hemoglobin 12.6 Hematocrit 38.1 Mean Corpuscular Volume 79.8 Mean Corpuscular Hemoglobin 26.5 Mean Corpuscular Hemoglobin Concent 33.2 Red Cell Distribution Width 17.4 Platelet Count 288 Mean Platelet Volume 9.0 Neutrophils (%) (Auto) 58.9 Lymphocytes (%) (Auto) 27.0 Monocytes (%) (Auto) 7.9 Eosinophils (%) (Auto) 5.4 Basophils (%) (Auto) 0.8 Neutrophils # (Auto) 5.3 Lymphocytes # (Auto) 2.4 Monocytes # (Auto) 0.7 Eosinophils # (Auto) 0.5 Basophils # (Auto) 0.1 CBC Comment DIFF FINAL Differential Comment Prothrombin Time 10.3 10.7 Prothromb Time International Ratio 1.0 1.1 Activated Partial Thromboplast Time 27.4 27.8 Blood Urea Nitrogen 21 20 Creatinine 1.13 1.06 Random Glucose 120 133 Total Protein 8.0 7.3 Albumin 3.8 3.5 Calcium Level 9.3 8.7 Magnesium Level 2.0 2.0 Alkaline Phosphatase 254 215 Aspartate Amino Transf (AST/SGOT) 32 38 Alanine Aminotransferase (ALT/SGPT) 34 33 Total Bilirubin 0.3 0.5 Sodium Level 139 138 Potassium Level 3.7 4.0 Chloride Level 106 107 Carbon Dioxide Level 23.3 23.9 Anion Gap 10 7 Estimat Glomerular Filtration Rate 48 52 Thyroid Stimulating Hormone 3rd Gen 1.890 Nasal Screen MRSA (PCR) MRSA DETECTED Phosphorus Level 4.1 Test 01/24/18 05:43 White Blood Count 7.0 Red Blood Count 4.28 Hemoglobin 11.2 Hematocrit 34.4 Mean Corpuscular Volume 80.5 Mean Corpuscular Hemoglobin 26.3 Mean Corpuscular Hemoglobin Concent 32.6 Red Cell Distribution Width 17.3 Platelet Count 191 Mean Platelet Volume 8.4 Neutrophils (%) (Auto) 81.6 Lymphocytes (%) (Auto) 16.3 Monocytes (%) (Auto) 1.4 Eosinophils (%) (Auto) 0.3 Basophils (%) (Auto) 0.4 Neutrophils # (Auto) 5.7 Lymphocytes # (Auto) 1.1 Monocytes # (Auto) 0.1 Eosinophils # (Auto) 0.0 Basophils # (Auto) 0.0 CBC Comment DIFF FINAL Differential Comment Lactic Acid Level 1.3 Result Diagram: 01/24/18 0543 01/24/18 0500 Imaging MRI of the cervical spine with IV contrast dated 01/23/2018: Impression: 1. Enhancement of the C6 vertebral body and posterior elements consistent with a mass. There is also enhancement of the posterior elements of C5. Multilevel disc bulges and canal stenosis. Assessment and Plan Problem List: (1) History of breast cancer ICD Codes: Z85.3 - Personal history of malignant neoplasm of breast Status: Chronic (2) Cervical spinal mass ICD Codes: G95.9 - Disease of spinal cord, unspecified Status: Acute Assessment and Plan 67-year-old female with a previous history of a T2 N1 M0 invasive lobular carcinoma of the left breast diagnosed in August 2015. She was treated with surgical resection followed by adjuvant endocrine therapy alone. She is treated initially in [facility], she relocated to [place] about a year ago and established follow-up with me in July 2017. Please review history of presenting illness section for further details as well as my outpatient notes for additional details. The patient was advised to come into the hospital last night by myself after results of her PET/CT scan were reviewed with the interpreting radiologist. The findings of concern were that of extensive metastatic disease involvement in the lower cervical vertebral bodies. There was concern of impending pathologic fracture which possibly would lead to quadriplegia due to spinal cord compromise/spinal cord compression. She was advised to come into the emergency department for cervical spinal cord stabilization and evaluation by neurosurgery. Neurosurgical evaluation is pending at this time. Plan: 1. Extensive metastatic disease burden involving the C5, C6 vertebral bodies: Await neurosurgical evaluation. Continue dexamethasone for the time being. She will eventually require bisphosphonate therapy. Radiation oncology evaluation is also been requested. If she is not a candidate for surgical resection she will require urgent initiation of palliative radiation. 2. Metastatic breast carcinoma: She would now be a candidate for initiation of palliative therapy, she would likely be candidate for initiation of palliative endocrine therapy in addition to Ibrance. Ahsan Zuñiga MD Jan 24, 2018 07:50
[2018-01-24] MEDS: FUROSEMIDE 40 MG TAB PO SCH ×2 (08:51→09:00)
[2018-01-24] MEDS: METOPROLOL TARTRATE 25 MG TAB PO SCH (08:51)
[2018-01-24] MEDS: POTASSIUM CHLORIDE 20 MEQ CONTROLLED RELEASE TAB PO SCH ×2 (08:51→09:00)
[2018-01-24] MEDS: CHOLECALCIFEROL (VIT D3) 1000 UNIT TAB PO SCH (08:51)
[2018-01-24] MEDS: SODIUM CHLOR 0.9% 1000 ML INJ 1,000 ML IV SCH ×2 (08:52→23:25)
[2018-01-24] MEDS: PANTOPRAZOLE SODIUM 40 MG VIAL IV PUSH SCH (08:52)
[2018-01-24] MEDS: SODIUM CHLORIDE 0.9% FLUSH 10 ML FLUSH IV FLUSH SCH ×2 (08:52→20:38)
[2018-01-24] MEDS: OXYBUTYNIN CHLORIDE 5 MG TAB PO SCH ×2 (09:00→20:38)
[2018-01-24] MEDS: DOCUSATE SODIUM 50 MG/SENNA 8.6 MG TAB PO SCH ×2 (09:00→20:38)
[2018-01-24] MEDS ORDERED: LEVOMILNACIPRAN PO SCH (09:00)
[2018-01-24] MEDS: TRIAMCINOLONE ACETONIDE 0.1% CREAM 15 GM TOPICAL SCH ×2 (09:03→20:39)
[2018-01-24] MEDS: ANASTROZOLE 1 MG TAB PO SCH (09:03)
[2018-01-24] MEDS: FLUTICASONE PROPIONATE 50 MCG/ACT 16 GM NASAL SPRAY EACH NARE SCH ×2 (09:03→20:39)
--- NOTE | 2018-01-24 09:28 | PD.CONS ---
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 She was diagnosed in the August 2015 with a locally advanced invasive lobular carcinoma of the left breast. She underwent surgical resection and was found to have pathologic stage T2 N1(mn) [facility] 0 disease , her disease was strongly positive for estrogen receptor expression of greater than 90%, strongly positive for progesterone receptor expression at greater than 90% and HER-2 not amplified. She will underwent surgical resection while she still lived in [facility] and subsequently was evaluated by her medical oncologist who was at 1 of the [facility] affiliates ( [facility]), she underwent Oncotype DX recurrence score testing and was found to have a low score. The patient was recommended adjuvant endocrine therapy with anastrozole alone by Dr. Mary Engel. I did review the original pathology reports from [place] and it appears her primary tumor measured 2.5 cm in largest dimension and she had microscopic involvement of the sentinel lymph nodes.She underwent adjuvant endocrine therapy with anastrozole. About a month and a half ago the patient reports having developed pain in her hip, On the CT scan of the pelvis she was noted to have lytic lesions involving the shaft of the proximal left femur. Findings were concerning for metastatic disease. She subsequently underwent a bone scan which revealed some abnormal findings in that area and she was recommended image guided biopsy. Image guided biopsy was technically difficult due to the small size of the lytic lesion. She was recommended a PET CT scan which was performed on 2017. PET/CT scan revealed extensive metastatic disease burden involving the entire C7 vertebral body. The patient was therefore contacted and advised to come in directly to the emergency department for evaluation by neurosurgery. An MRI of the C-spine was performed on 01/23/2018 and this confirmed presence of extensive metastatic disease to the C7 vertebral body. Neurosurgical consultation was requested ROS - General Review of Systems Constitutional: COMPLAINS OF: Fatigue, DENIES: Diaphoretic episodes, Fever, Weight gain, Weight loss, Chills, Dizziness, Change in appetite, Night Sweats Endocrine: DENIES: Abnorml menstrual pattern, Heat/cold intolerance, Polydipsia , Polyuria, Polyphagia Eyes: DENIES: Blurred vision, Diplopia, Eye inflammation, Eye pain, Vision loss , Photosensitivity, Double Vision Ears, nose, mouth, throat: DENIES: Tinnitus, Hearing loss, Vertigo, Nasal discharge, Oral lesions, Throat pain, Hoarseness, Ear Pain, Running Nose, Epistaxis, Sinus Pain, Toothache, Odynophagia Respiratory: COMPLAINS OF: Cough, Shortness of breath, DENIES: Apneas, Snoring , Wheezing, Hemoptysis, Sputum production Cardiovascular: COMPLAINS OF: Dyspnea on Exertion, Lower Extremity Edema ( Chronic lower extremity edema.), DENIES: Chest pain, Palpitations, Syncope, PND , Orthopnea, Claudication Gastrointestinal: DENIES: Abdominal pain, Black stools, Bloody stools, Constipation, Diarrhea, Nausea, Vomiting, Difficulty Swallowing, Anorexia Genitourinary: DENIES: Abnormal vaginal bleeding, Dysmenorrhea, Dyspareunia, Sexual dysfunction, Urinary frequency, Urinary incontinence, Urgency, Hematuria , Dysuria, Nocturia, Vaginal discharge Musculoskeletal: COMPLAINS OF: Joint pain, Muscle aches, Stiffness, Neck pain, DENIES: Joint Swelling, Back pain Integumentary: DENIES: Abnormal pigmentation, Pruritus, Rash, Nail changes, Breast masses, Breast skin changes, Nipple discharge Hematologic/lymphatic: DENIES: Bruising, Lymphadenopathy Immunologic/allergic: DENIES: Eczema, Urticaria Neurologic: COMPLAINS OF: Abnormal gait, Headache, Paresthesias, Poor Balance, DENIES: Localized weakness, Seizures, Speech Problems, Tremor Psychiatric: COMPLAINS OF: Anxiety, Confusion, Depression, DENIES: Mood changes , Hallucinations, Agitation, Suicidal Ideation, Homicidal Ideation, Delusions Except as stated in HPI: all other systems reviewed are Neg PFSH Past Family Social History Allergies: Coded Allergies: hydromorphone (Verified Allergy, Mild, Hallucinations, 10/12/17) Past Medical History Invasive lobular carcinoma of the left breast. Hypertension Ongoing tobaccoism Obesity Psoriasis Restrictive lung disease Past Surgical History Image guided left breast mass biopsy Left breast mastectomy with left axillary lymph node sampling Left femur ORIF Left knee TKA Right knee TKA Active Ordered Medications Magnesium and potassium replacement protocols. Normal saline 84 cc/h DuoNeb 1 amp every 4 hours as needed Albuterol 2.5 mg inhaled every 2 hours as needed for shortness of breath or wheezing. REM index 1 mg p.o. daily Dulcolax suppository 10 mg per rectum as needed for severe constipation. Vitamin D3 2000 units p.o. daily Dexamethasone 6 million g IV 1. Dexamethasone 4 mg IV every 6 hours Fluticasone nasal spray in each naris twice daily Lasix 60 mg p.o. daily Lactulose 30 mL p.o. daily Medium Novolin insulin R sliding scale per protocol Metoprolol 25 mg p.o. daily Morphine sulfate 2-4 mg IV every 3 hours as needed for breakthrough pain Zofran 4 mg IV every 6 hours as needed for nausea and vomiting Oxybutynin 5 mg p.o. every 12 hours. Pantoprazole 40 mg IV daily Senokot 17.2 mg p.o. every 12 hours needed for moderate constipation. Triamcinolone application to involved areas with psoriasis as needed twice daily Family History Mother at the age of 67 of a history of fibrosarcoma. Father at the age of 72 of liver cancer. Total grandmother at the age of 40 from breast cancer. 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 She has no children of her own. She reports smoking about half pack a day for the past 40 years. She drinks alcohol occasionally. She currently lives at home with her sister who is legally blind. The patient reports having generally sedentary lifestyle. Review of Systems Constitutional: COMPLAINS OF: Fatigue, Weight loss, DENIES: Fever, Weight gain Endocrine: DENIES: Abnorml menstrual pattern Eyes: DENIES: Blurred vision Ears, nose, mouth, throat: DENIES: Tinnitus Respiratory: DENIES: Apneas Cardiovascular: DENIES: Chest pain Gastrointestinal: DENIES: Abdominal pain Genitourinary: DENIES: Urinary frequency Musculoskeletal: COMPLAINS OF: Joint pain, Muscle aches, Neck pain, DENIES: Stiffness, Back pain Hematologic/lymphatic: DENIES: Bruising Immunologic/allergic: DENIES: Eczema Neurologic: COMPLAINS OF: Headache, DENIES: Abnormal gait Psychiatric: DENIES: Anxiety, Confusion PFSH Past Family Social History Allergies: Coded Allergies: hydromorphone (Verified Allergy, Mild, Hallucinations, 10/12/17) Endocrine: DENIES: Abnorml menstrual pattern, Heat/cold intolerance, Polydipsia , Polyuria, Polyphagia Eyes: DENIES: Blurred vision, Diplopia, Eye inflammation, Eye pain, Vision loss , Photosensitivity, Double Vision Respiratory: DENIES: Apneas, Cough, Snoring, Wheezing, Hemoptysis, Sputum production, Shortness of breath Musculoskeletal: COMPLAINS OF: Joint pain, Neck pain Integumentary: DENIES: Abnormal pigmentation, Pruritus, Rash, Nail changes, Breast masses, Breast skin changes, Nipple discharge Hematologic/lymphatic: DENIES: Bruising, Lymphadenopathy Immunologic/allergic: DENIES: Eczema, Urticaria Neurologic: DENIES: Abnormal gait, Headache, Localized weakness, Paresthesias, Seizures, Speech Problems, Tremor, Poor Balance Past Family Social History Allergies: Coded Allergies: hydromorphone (Verified Allergy, Mild, Hallucinations, 10/12/17) Past Medical History Morbid obesity Gastroesophageal reflux disease Osteoporosis/osteoarthritis Overactive bladder Hypertension Dyslipidemia Psoriasis Restrictive lung disease Invasive lobular carcinoma the left breast T2 N1 M0 estrogen/progesterone positive HER-2/jack negative Depression Allergic rhinitis Chronic diastolic heart failure? Past Surgical History Bilateral total knee replacements Left femur ORIF Left meniscectomy with lymph node resection Left breast biopsy Reported Medications Albuterol/ipratropium aerosols every 4 hours Albuterol 18 g 1 inhalation every 6 hours Pravastatin 40 mg p.o. daily Metoprolol tartrate 25 mg p.o. daily Aspirin 81 mg p.o. daily Lisinopril 5 mg p.o. daily Levomilnacipran 120 mg p.o. daily Lorazepam 1 mg at night Pramipexole 1 mg at night Potassium chloride 20 mEq daily Furosemide 60 mg p.o. daily Fluticasone 50 mcg inhalation twice daily Anastrozole 1 mg p.o. daily orlistat 120 mg p.o. 3 times daily Omeprazole 40 mg p.o. daily Oxybutynin 5 mg p.o.2 times daily Cholecalciferol 2000 units p.o. daily Triamcinolone cream apply to affected areas Active Ordered Medications Current Medications Morphine Sulfate (Morphine Inj) 4 mg ONCE ONCE IV PUSH Last administered on at 19:36; Start 01/23/18 at 19:30; Stop 01/23/18 at 19:31; Status DC Ondansetron HCl (Zofran Inj) 4 mg ONCE ONCE IV PUSH Last administered on at 19:36; Start 01/23/18 at 19:30; Stop 01/23/18 at 19:31; Status DC Gadodiamide (Omniscan Pf Inj) 5 ml STK-MED ONCE IVCONTRAST Last administered on 01/23/18at 23:15; Start 01/23/18 at 17:09; Stop 01/23/18 at 23:11; Status DC Gadodiamide (Omniscan Pf Inj) 20 ml STK-MED ONCE IVCONTRAST Last administered on 01/23/18at 23:14; Start 01/23/18 at 17:09; Stop 01/23/18 at 23:11; Status DC Dexamethasone Sodium Phosphate (Decadron Inj) 6 mg ONCE ONCE IV PUSH Last administered on 01/23/18at 23:46; Start 01/23/18 at 23:30; Stop 01/23/18 at 23:31 ; Status DC Sodium Chloride 1,000 ml @ 84 mls/hr [id number] IV Last administered on 08:52; Start 01/23/18 at 23:35 Sodium Chloride (NS Flush) 2 ml UNSCH PRN IV FLUSH FLUSH AFTER USING IV ACCESS Last administered on 01/24/18 08:52; Start 01/23/18 at 23:45 Sodium Chloride (NS Flush) 2 ml BID IV FLUSH Last administered on 01/24/18 08: 52; Start 01/24/18 at 09:00 Acetaminophen (Tylenol) 650 mg Q6H PRN PO FEVER >101F; Start 01/23/18 at 23:45 Pantoprazole Sodium (Protonix Inj) 40 mg DAILY IV PUSH Last administered on at 08:52; Start 01/24/18 at 09:00 Ondansetron HCl (Zofran Inj) 4 mg Q6H PRN IV PUSH NAUSEA OR VOMITING; Start at 23:45 Albuterol Sulfate (Albuterol Neb) 2.5 mg Q2HR NEB PRN INH SOB/WHEEZING; Start 01/23/18 at 23:45 Heparin Sodium (Porcine) (Heparin Inj) 5,000 units Q12H SQ Last administered on 01/24/18at 01:35; Start 01/24/18 at 00:00 Miscellaneous Information 1 [id number] Last administered on 01/23/18at 23:45; Start 01/23/18 at 23:45 Chlorhexidine Gluconate (Chlorhexidine 2% Cloth) 3 pack Taper DAILY@04 TOP Last administered on 01/24/18at 04:00; Start 01/24/18 at 04:00; Stop 01/20/19 at 03:59 Chlorhexidine Gluconate (Chlorhexidine 2% Cloth) 3 pack UNSCH PRN TOP HYGIENIC CARE; Start 01/23/18 at 23:45 Senna/Docusate Sodium (Cande-Colace) 1 tab BID PO Last administered on at 09:00; Start 01/24/18 at 09:00 Magnesium Hydroxide (Milk Of Magnesia Liq) 30 ml Q12H PRN PO Mild constipation ; Start 01/23/18 at 23:45 Sennosides (Senokot) 17.2 mg Q12H PRN PO Moderate constipation; Start 01/23/18 at 23:45 Bisacodyl (Dulcolax Supp) 10 mg DAILY PRN RECTAL SEVERE CONSITIPATION; Start at 23:45 Lactulose (Lactulose Liq) 30 ml DAILY PRN PO SEVERE CONSITIPATION; Start at 23:45 Dexamethasone Sodium Phosphate (Decadron Inj) 4 mg Q6HR IV PUSH Last administered on 01/24/18at 05:18; Start 01/24/18 at 00:00 Potassium Chloride 100 ml @ 50 mls/hr Q2H PRN IV For Potassium 2.8 - 3.2 mEq/L ; Start 01/23/18 at 23:45 Potassium Chloride 100 ml @ 50 mls/hr Q2H PRN IV For Potassium 2.8 - 3.2 mEq/L ; Start 01/23/18 at 23:45 Potassium Bicarb/ Potassium Chloride (K-Lyte Cl Eff) 50 meq UNSCH PRN PO For Potassium 3.3 - 3.5 mEq/L; Start 01/23/18 at 23:45 Potassium Chloride 100 ml @ 25 mls/hr UNSCH PRN IV For Potassium 3.3 - 3.5 mEq /L; Start 01/23/18 at 23:45 Potassium Chloride 100 ml @ 50 mls/hr Q2H PRN IV For Potassium 3.3 - 3.5 mEq/L ; Start 01/23/18 at 23:45 Magnesium Sulfate 4 gm/Sodium Chloride 100 ml @ 50 mls/hr UNSCH PRN IV For Magnesium 0.9 - 1.1 mg/dL; Start 01/23/18 at 23:45 Magnesium Oxide (Mag-Ox) 800 mg UNSCH PRN PO For Magnesium 1.2 - 1.6 mg/dL; Start 01/23/18 at 23:45 Magnesium Sulfate 2 gm/Sodium Chloride 100 ml @ 50 mls/hr UNSCH PRN IV For Magnesium 1.2 - 1.6 mg/dL; Start 01/23/18 at 23:45 Potassium Phosphate (K-Phos) 2,000 mg Q4H PRN PO For Phosphorus < 2.5 mg/dL; Start 01/23/18 at 23:45 Sodium Phosphate 30 mmol/Sodium Chloride 250 ml @ 42 mls/hr UNSCH PRN IV For Phosphorus < 2.5 mg/dL; Start 01/23/18 at 23:45 Potassium Phosphate (K-Phos) 2,000 mg UNSCH PRN PO/TUBE SEE LABEL COMMENTS; Start 01/23/18 at 23:45 Potassium Phosphate 30 mmol/ Sodium Chloride 260 ml @ 42 mls/hr UNSCH PRN IV SEE LABEL COMMENTS; Start 01/23/18 at 23:45 Dextrose (D50w (Vial) Inj) 50 ml UNSCH PRN IV PUSH HYPOGLYCEMIA-SEE COMMENTS; Start 01/23/18 at 23:45 Glucagon (Glucagon Inj) 1 mg UNSCH PRN OTHER HYPOGLYCEMIA-SEE COMMENTS; Start 01/23/18 at 23:45 Insulin Human Regular (NovoLIN R SUPPLEMENTAL SCALE) 1 ACHS SLIDING SCALE SQ ; Start 01/24/18 at 08:00 Morphine Sulfate (Morphine Inj) 2 mg Q3H PRN IV PUSH Breakthrough pain; Start 01/23/18 at 23:45 Anastrozole (Arimidex) 1 mg DAILY PO Last administered on 01/24/18at 09:03; Start 01/24/18 at 09:00 Fluticasone Propionate (Flonase Nick Spr) 1 spray BID EACH NARE Last administered on 01/24/18at 09:03; Start 01/24/18 at 09:00 Furosemide (Lasix) 60 mg DAILY PO ; Start 01/24/18 at 09:00 Metoprolol Tartrate (Lopressor) 25 mg DAILY PO Last administered on 01/24/18 08:51; Start 01/24/18 at 09:00 Oxybutynin Chloride (Ditropan) 5 mg Q12HR PO ; Start 01/24/18 at 09:00 Potassium Chloride (KCl) 20 meq DAILY PO ; Start 01/24/18 at 09:00 Triamcinolone Acetonide (Aristocort 0.1% Cream) 1 applic BID TOPICAL Last administered on 01/24/18 09:03; Start 01/24/18 at 09:00 Cholecalciferol (Vitamin D3) 2,000 units DAILY PO Last administered on 08:51; Start 01/24/18 at 09:00 Patient Own Medication PT OWN MED: Levomilnacipran ER (Fetz... DAILY PO ; Start 01/24/18 at 09:00; Status Future Hold Pramipexole Dihydrochloride (Mirapex) 1 mg HS PO ; Start 01/24/18 at 21:00 Albuterol/ Ipratropium (Duoneb Neb) 1 ampule Q4HR NEB NEB Last administered on 01/24/18at 08:05; Start 01/24/18 at 00:00 Family History Reviewed. Mother at age 67 and a history of fibrosarcoma Father at age 72 of liver cancer Maternal grandmother age 40 from breast cancer. Social History Smokes half pack per day for 40 years. Rare alcohol use. Denies illicit drug use. Physical Exam Vital Signs Vital Signs Date Time Temp Pulse Resp B/P (MAP) Pulse Ox O2 Delivery O2 Flow Rate FiO2 01/24/18 08:07 98 01/24/18 06:00 75 01/24/18 04:00 98.0 73 39 115/55 (75) 95 01/24/18 04:00 73 01/24/18 02:40 90 Nasal Cannula 2.00 01/24/18 02:00 69 01/24/18 01:00 97.9 64 24 112/53 (72) 99 01/24/18 00:48 01/23/18 23:00 60 20 123/60 (81) 98 01/23/18 19:27 60 20 126/57 (80) 100 Room Air 01/23/18 17:20 98.2 65 18 153/71 (98) 98 Physical Exam Ms. Sellers is alert, awake. Speech is fluent. Higher cognitive functions are normal. Hard collar in lace Cranial nerve examination demonstrates the pupils to be equal, round, and reactive to light. Facial motor are normal and symmetrical. Gross hearing is intact, bilaterally. Neck is immobilized by a [place] collar Muscle testing reveals normal bulk and tone. Moving all major muscle groups of upper and lower extremities well Sensory examination is intact to light touch and pin prick in both the upper and lower extremities. Deep tendon reflexes are symmetrical in both upper and lower extremities. There is a bilateral plantar flexion response. Cerebellar examination is unremarkable, without deficits. Lungs. Clear heart RRR Skin. warm and dry Laboratory Laboratory Tests Test 01/23/18 19:10 01/23/18 20:05 01/24/18 01:00 01/24/18 05:00 White Blood Count 9.0 Red Blood Count 4.77 Hemoglobin 12.6 Hematocrit 38.1 Mean Corpuscular Volume 79.8 Mean Corpuscular Hemoglobin 26.5 Mean Corpuscular Hemoglobin Concent 33.2 Red Cell Distribution Width 17.4 Platelet Count 288 Mean Platelet Volume 9.0 Neutrophils (%) (Auto) 58.9 Lymphocytes (%) (Auto) 27.0 Monocytes (%) (Auto) 7.9 Eosinophils (%) (Auto) 5.4 Basophils (%) (Auto) 0.8 Neutrophils # (Auto) 5.3 Lymphocytes # (Auto) 2.4 Monocytes # (Auto) 0.7 Eosinophils # (Auto) 0.5 Basophils # (Auto) 0.1 CBC Comment DIFF FINAL Differential Comment Prothrombin Time 10.3 10.7 Prothromb Time International Ratio 1.0 1.1 Activated Partial Thromboplast Time 27.4 27.8 Blood Urea Nitrogen 21 20 Creatinine 1.13 1.06 Random Glucose 120 133 Total Protein 8.0 7.3 Albumin 3.8 3.5 Calcium Level 9.3 8.7 Magnesium Level 2.0 2.0 Alkaline Phosphatase 254 215 Aspartate Amino Transf (AST/SGOT) 32 38 Alanine Aminotransferase (ALT/SGPT) 34 33 Total Bilirubin 0.3 0.5 Sodium Level 139 138 Potassium Level 3.7 4.0 Chloride Level 106 107 Carbon Dioxide Level 23.3 23.9 Anion Gap 10 7 Estimat Glomerular Filtration Rate 48 52 Thyroid Stimulating Hormone 3rd Gen 1.890 Nasal Screen MRSA (PCR) MRSA DETECTED Phosphorus Level 4.1 Test 01/24/18 05:43 White Blood Count 7.0 Red Blood Count 4.28 Hemoglobin 11.2 Hematocrit 34.4 Mean Corpuscular Volume 80.5 Mean Corpuscular Hemoglobin 26.3 Mean Corpuscular Hemoglobin Concent 32.6 Red Cell Distribution Width 17.3 Platelet Count 191 Mean Platelet Volume 8.4 Neutrophils (%) (Auto) 81.6 Lymphocytes (%) (Auto) 16.3 Monocytes (%) (Auto) 1.4 Eosinophils (%) (Auto) 0.3 Basophils (%) (Auto) 0.4 Neutrophils # (Auto) 5.7 Lymphocytes # (Auto) 1.1 Monocytes # (Auto) 0.1 Eosinophils # (Auto) 0.0 Basophils # (Auto) 0.0 CBC Comment DIFF FINAL Differential Comment Lactic Acid Level 1.3 Result Diagram: 01/24/18 0543 01/24/18 0500 Attending Statement 67 year old female with (1) Breast cancer in female Diagnosis: Principal (2) Cervical spinal mass Diagnosis: Principal (3) Gastroesophageal reflux disease Diagnosis: Secondary (4) Essential hypertension Diagnosis: Secondary (5) Restrictive lung disease Diagnosis: Secondary (6) BMI 40.0-44.9, adult Diagnosis: Principal (7) Hyperlipidemia Diagnosis: Secondary (8) Left hip pain Diagnosis: Principal (9) Elevated alkaline phosphatase level Diagnosis: Secondary (10) Psoriasis Diagnosis: Secondary (11) Vitamin D deficiency Diagnosis: Secondary I reviewed several radiological studies including Last 48 hours Impressions Chest X-Ray 01/24/18 0000 Signed Impressions: Service Date/Time: Wednesday, January 24, 2018 02:59 - CONCLUSION: No evidence of acute cardiopulmonary disease. Greg Delacruz MD Cervical Spine MRI 01/23/18 0000 Signed Impressions: Service Date/Time: Tuesday, January 23, 2018 21:35 - CONCLUSION: 1. Enhancement of C6 vertebral body and posterior elements consistent with mass. There is also enhancement of posterior elements of C5. 2. Multilevel disc bulges and canal stenosis as described above. Noam Ascencio MD Neuro. Neuro checks in a serial fashion.. I have reviewed her clinical and radiological findings.I have discussed the alternative methods of treatment including, conservative management, pain management by an interventional hand touch up painter, or a surgical decompression, which should always be a last resort. Mrs. Sellers does not have any focal neurological deficits. I do not see any neural compression on her MRI. I do not see evidence of instability. I recommend a set of flexion-extension x-rays of his cervical spine to rule out instability If there is no mechanical instability I would recommend nonoperative treatment with radiation therapy. I will defer potential need to further chemotherapy to her oncologist, Dr. Zuñiga Pulmonary. Aggressive pulmonary toilette, nasotracheal suction, and breathing treatments with nebulizers. Daily PT and OT Renal. Continue to monitor closely urine output, BUN and creatinine Endocrine. Continue to Monitor serial Acu checks and SSI as needed in detail ID continue to monitor for signs of infection Continue Protonix for stress ulcer prophylaxis Continue Himanshu hose and SCD's for DVT prophylaxis Further recommendations will be provided depending on the patient's clinical evaluation and follow up studies. Alec Figueroa MD Jan 24, 2018 09:28
--- NOTE | 2018-01-24 09:42 | HHI.CCPN ---
Subjective Remarks/Hospital Course This is a 67-year-old female. The admission 01/23/2018. Past medical history includes breast cancer/invasive lobular 08/23 T1 N1 M0 estrogen/ progesterone positive HER-2/jack negative. She is undergone a left mastectomy with lymph node resection, morbid obesity, depression, hypertension, dyslipidemia, psoriasis restrictive lung disease. She follows with Dr. Dillard for cardiology for heart murmur along with Dr. Brooks for her restrictive lung disease/pulmonology. Her oncologist is Dr. Zuñiga. For the past several months, patient is experiencing tingling sensations involving the thumb and first finger of her left upper extremity along with pain in her right shoulder/forearm. She seen a chiropractor. She has had multiple imaging done which revealed possible metastases to her left iliac crest initially. She recently had a PET scan which was read as possible cervical spine metastasis. MRI of the C-spine performed feel the C6 vertebral body enhancement with a posterior mass with multiple areas of disc protrusion. Dr. Figueroa was notified/ neurosurgery. Recommended Decadron and placed in the [place] collar. He will evaluate patient in a.m. Dr. Zuñiga will be notified/or oncologist. She is hemodynamically stable. Complaining of some numbness/tingling in her left upper extremity only left thumb/finger. No focal neurological deficits as far strength is concerned. Full range of motion but painful to movement. Subjective: 01/24: GCS 15. Patient awake alert moving extremities 4. No focal or sensory deficits this a.m.. Neurosurgery, Dr. Figueroa in for evaluation of the patient. No plans for neurosurgical intervention at this time. Plan for CT guided aspiration of the lesion this am. Radiation oncologist consulted/urgent. Discussed case with Dr. Omer. Plan for XRT simulation and plan of treatment/ care this afternoon. Objective Vital Signs Date Time Temp Pulse Resp B/P (MAP) Pulse Ox O2 Delivery O2 Flow Rate FiO2 01/24/18 08:07 98 01/24/18 06:00 75 01/24/18 04:00 98.0 39 115/55 (75) 01/24/18 02:40 Nasal Cannula 2.00 Result Diagram: 01/24/18 0543 01/24/18 0500 Imaging Last Impressions Cervical Spine MRI 01/23/18 0000 Signed Impressions: Service Date/Time: Tuesday, January 23, 2018 21:35 - CONCLUSION: 1. Enhancement of C6 vertebral body and posterior elements consistent with mass. There is also enhancement of posterior elements of C5. 2. Multilevel disc bulges and canal stenosis as described above. Noam Ascencio MD Objective Remarks GENERAL: 67-year-old female currently resting in bed in no acute distress SKIN: Warm and dry. HEAD: Atraumatic. Normocephalic. EYES: Pupils equal and round. No scleral icterus. No injection or drainage. ENT: No nasal bleeding or discharge. Mucous membranes pink and moist. NECK: Trachea midline. No JVD. In [place] collar CARDIOVASCULAR: Regular rate and rhythm. S1, S3 no S4. 2/6 systolic murmur RESPIRATORY: No accessory muscle use. Clear to auscultation. Breath sounds equal bilaterally. GASTROINTESTINAL: Abdomen soft, non-tender, nondistended. Hepatic and splenic margins not palpable. MUSCULOSKELETAL: Extremities with trace nonpitting peripheral edema. No obvious deformities. NEUROLOGICAL: Awake and alert. No obvious cranial nerve deficits. Motor grossly within normal limits. 5/5 muscle strength in the arms and legs. Normal speech. Decreased sensation to light touch and pinprick over left thumb/index finger. PSYCHIATRIC: Appropriate mood and affect; insight and judgment normal. A/P Assessment and Plan Neuro/Psych: C6, 7 vertebral body mass Depression disorder NOS MRI C-spine revealed C6 vertebral body enhancement with posterior mass likely. Posterior enhancement of C5 vertebral body. Multiple areas of disc protrusion and canal stenosis identified Dr. Figueroa NSGY evaluation-no neurosurgical intervention at this time Recommend dexamethasone 6 mg IV 1 x 4 mg every 6 hours. [place] collar placement Resume levomilnacipran 120 mg. Daily/depression Acetaminophen 650 mg every 6 hours as needed fever/pain 1 through 10 Morphine sulfate 2 mg IV every 3 hours as needed breakthrough pain. Noted allergy to hydromorphone is adverse reaction/hallucinations according to patient Holding lorazepam 1 mg at night. Resume pramipexole 1 mg daily Urgent consult to radiation oncology- Dr. Omer, plan for radiation oncology for simulation and initiation of plan of treatment Maintain bed rest 01/24 CT-guided aspiration of lesion scheduled per neurosurgery CV: Hypertension Dyslipidemia Resume metoprolol 25 mg p.o. daily for hypertension along with lisinopril 5 mg daily. Holding pravastatin 40 mg p.o. daily for dyslipidemia. Resume clinically indicated Holding aspirin [address] Dillard is her tube builder. Echocardiogram 04/24 revealed essentially normal LV function. No regional wall motion abnormalities. Resume furosemide 60 mg by mouth daily and potassium chloride 20 mEq by mouth p.o. 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 3 times daily. On pantoprazole 40 mg IV daily. On omeprazole 40 mg by mouth daily at home Docusate sodium/senna 1 tablet twice daily for bowel regimen Maintain NPO status currently for CT-guided aspiration of lesion, then will resume regular diet : Overflow incontinence Continue oxybutynin 5 mg p.o. twice daily Endo: Hyperglycemia Sliding scale insulin Accu-Cheks to maintain euglycemia/AC/at bedtime with median Novulin R sliding-scale while on steroids TSH 1.8 Renal: Creatinine slightly elevated 1.1 Monitor urine output Accurate I's and O Heme: History of invasive lobular carcinoma of the left breast T2 N1 M0 estrogen saturation positive hernia negative currently on anastrozole 1 mg p.o. daily Microcytosis Counseled Dr. Zuñiga management ID: Monitor for infection MSK: Psoriasis Continue triamcinolone cream PT/OT evaluate and treat FEN: Replace electrolytes as clinically indicated Access -Utilize peripheral IV. Central line if indicated Prophylaxis -GI -pantoprazole -DVT -SCD/heparin subcu Level 2 follow up-planned transfer to [facility] in am. Planned transfer to [facility] floor when bed becomes available Physician Judith Koch MD Jan 24, 2018 09:42
[2018-01-24] MEDS: INSULIN NovoLIN REGULAR SUPPLEMENTAL SCALE SQ SCH ×3 (12:00→20:38)
[2018-01-24] MEDS: MORPHINE SULFATE 2 MG/ML SYRINGE IV PUSH PRN ×2 (12:16→18:38)
--- NOTE | 2018-01-24 15:39 | OTSOAPIP ---
RECEIVED OCCUPATIONAL THERAPY ORDERS FROM DR. MOSLEY. ATTEMPTED TO SEE PATIENT, HOWEVER PATIENT IS LEAVING TO GO OFF FLOOR. BAILEE YANCEY REPORTS PATIENT WILL BE GONE FOR SOME TIME. WILL REATTEMPT TOMORROW. INTERDISCIPLINARY COMMUNICATION: REVIEWED ELECTRONIC MEDICAL RECORD, SPOKE WITH BAILEE YANCEY Therapist: Lalitha Moscoso, OTR/L Signature on file
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
[2018-01-24] MEDS ORDERED: GADODIAMIDE PF 287 MG/ML 5 ML VIAL (for RAD MRI) IVCONTRAST ONE (17:00)
--- NOTE | 2018-01-24 18:03 | RADRPT ---
EXAM DATE/TIME: 01/24/2018 16:21 [facility] COMPARISON: No previous studies available for comparison. INDICATIONS : Mass. CONTRAST: 24 cc Omniscan (gadodiamide) IV MEDICAL HISTORY : Carcinoma, breast. Hypertension. Rheumatoid arthritis. Osteoarthritis. GERD. SURGICAL HISTORY : Total knee replacement, left. Total knee replacement, right. Mastectomy, left. ORIF left femur plate. ENCOUNTER: Subsequent ACUITY: 2 day PAIN SCORE: 3/10 LOCATION: mid back. TECHNIQUE: Multiplanar multisequence MRI of the thoracic spine was performed. FINDINGS: There are multiple foci of focally altered marrow signal intensity in multiple vertebral elements con sistent with multifocal metastatic disease. Findings include a area of altered signal intensity and e nhancement involving the marrow of the right lateral aspect of the T3 vertebral body, several punctat e foci involving the C6 vertebral body, a couple small foci involving the T11 vertebral body and a fo cus involving T9 as will be described below. There is a circumscribed area of focally altered marrow signal involving the posterior right lateral aspect of the T9 vertebral body, mainly involving the upper aspect of the posterior vertebral body wi th extension to the base of the pedicle on the right. This area shows moderate homogeneous contrast e nhancement and moderate T2 prolongation. There is no significant extraosseous extent of abnormal sign al or enhancement. Specifically, no epidural abnormality as questioned. There is no evidence of retro pulsion or anatomic canal or foraminal stenosis. CONCLUSION: Multifocal metastatic disease in the thoracic spine. No evidence of epidural extension as questioned. Greg Quan MD on January 24, 2018 at 17:50 Board Certified Radiologist. This report was verified electronically.
[2018-01-24] MEDS: PRAMIPEXOLE DIHYDROCHLORIDE 1 MG TAB PO SCH (20:57)
[2018-01-25] VITALS (16 sets, daily range): BP systolic 133–184; BP diastolic 62–98; PULSE 62–87; RESP 18–33; TEMP 98.8–99; O2SAT 94–100
[2018-01-25] MEDS: RESP: ALBUTEROL 2.5 MG/IPRATROPIUM 0.5 MG NEB (SCH) NEB ×6 (02:43→20:00)
[2018-01-25] MEDS: CHLORHEXIDINE GLUCONATE 2 % 1 PACK (2 CLOTHS) TOP SCH (04:00)
[2018-01-25] MEDS: SODIUM CHLOR 0.9% 1000 ML INJ 1,000 ML IV SCH ×2 (05:24→23:13)
[2018-01-25] MEDS: DEXAMETHASONE SOD PHOS 4 MG/ML VIAL IV PUSH SCH ×5 (05:42→23:16)
[2018-01-25] MEDS: MORPHINE SULFATE 2 MG/ML SYRINGE IV PUSH PRN ×2 (05:42→23:13)
[2018-01-25] MEDS: INSULIN NovoLIN REGULAR SUPPLEMENTAL SCALE SQ SCH ×4 (08:00→20:15)
--- NOTE | 2018-01-25 08:28 | PD.ONC.PN ---
Subjective Subjective Remarks Patient seen and examined, vital signs, labs, medications and imaging studies reviewed. Body Shop Technician notes reviewed as well. Patient is requesting a more comfortable collar. Objective Data Date Time Temp Pulse Resp B/P (MAP) Pulse Ox O2 Delivery O2 Flow Rate FiO2 01/25/18 06:00 70 01/25/18 05:53 16 01/25/18 04:00 78 01/25/18 04:00 98.8 78 26 173/73 (106) 96 01/25/18 02:00 76 01/25/18 00:00 99.0 79 28 145/98 (114) 96 01/25/18 00:00 79 01/24/18 22:00 83 01/24/18 20:00 99.0 82 26 153/65 (94) 96 01/24/18 20:00 82 01/24/18 18:00 86 01/24/18 13:00 70 01/24/18 13:00 70 26 115/58 (77) 92 01/24/18 12:00 98.7 64 23 126/58 (80) 93 01/24/18 12:00 64 01/24/18 11:00 80 28 141/98 (112) 97 01/24/18 11:00 80 01/24/18 10:00 82 36 96 01/24/18 10:00 82 01/24/18 09:00 74 01/24/18 09:00 74 21 126/59 (81) 97 Result Diagram: 01/24/18 0543 01/24/18 0500 Imaging Studies Last 24 hours Impressions Thoracic Spine MRI 01/24/18 1516 Signed Impressions: Service Date/Time: Wednesday, January 24, 2018 16:21 - CONCLUSION: Multifocal metastatic disease in the thoracic spine. No evidence of epidural extension as questioned. Greg Quan MD Administered Medications Medications (Trade) Dose Ordered Sig/Wendi Route PRN Reason Start Time Stop Time Status Last Admin Dose Admin Sodium Chloride 1,000 ml @ 84 mls/hr [id number] IV 01/23/18 23:35 01/25/18 05:24 Sodium Chloride (NS Flush) 2 ml UNSCH PRN IV FLUSH FLUSH AFTER USING IV ACCESS 01/23/18 23:45 01/24/18 08:52 Sodium Chloride (NS Flush) 2 ml BID IV FLUSH 01/24/18 09:00 01/24/18 20:38 Pantoprazole Sodium (Protonix Inj) 40 mg DAILY IV PUSH 01/24/18 09:00 01/24/18 08:52 Heparin Sodium (Porcine) (Heparin Inj) 5,000 units Q12H SQ 01/24/18 00:00 Future Hold 01/24/18 01:35 Miscellaneous Information 1 [id number] XX 01/23/18 23:45 01/23/18 23:45 Chlorhexidine Gluconate (Chlorhexidine 2% Cloth) 3 pack Taper DAILY@04 TOP 01/24/18 04:00 01/20/19 03:59 01/25/18 04:00 Senna/Docusate Sodium (Cande-Colace) 1 tab BID PO 01/24/18 09:00 01/24/18 20:38 Dexamethasone Sodium Phosphate (Decadron Inj) 4 mg Q6HR IV PUSH 01/24/18 00:00 01/25/18 05:42 Insulin Human Regular (NovoLIN R SUPPLEMENTAL SCALE) 1 ACHS SLIDING SCALE SQ 01/24/18 08:00 01/24/18 20:38 Morphine Sulfate (Morphine Inj) 2 mg Q3H PRN IV PUSH Breakthrough pain 01/23/18 23:45 01/25/18 05:42 Anastrozole (Arimidex) 1 mg DAILY PO 01/24/18 09:00 01/24/18 09:03 Fluticasone Propionate (Flonase Nick Spr) 1 spray BID EACH NARE 01/24/18 09:00 01/24/18 20:39 Metoprolol Tartrate (Lopressor) 25 mg DAILY PO 01/24/18 09:00 01/24/18 08:51 Triamcinolone Acetonide (Aristocort 0.1% Cream) 1 applic BID TOPICAL 01/24/18 09:00 01/24/18 20:39 Cholecalciferol (Vitamin D3) 2,000 units DAILY PO 01/24/18 09:00 01/24/18 08:51 Pramipexole Dihydrochloride (Mirapex) 1 mg HS PO 01/24/18 21:00 01/24/18 20:57 Albuterol/ Ipratropium (Duoneb Neb) 1 ampule Q4HR NEB NEB 01/24/18 00:00 01/24/18 12:25 Objective Remarks GENERAL: Middle-aged lady, laying in bed, she has a c-collar on. She appears to be no acute distress. She speaks to me in full sentences. She is alert and oriented 3. SKIN: Psoriasis, mostly noted on the extensor surfaces. HEAD: Atraumatic. Normocephalic. No temporal or scalp tenderness. EYES: Pupils equal round and reactive. Extraocular motions intact. No scleral icterus. No injection or drainage. ENT: Nose without bleeding, purulent drainage or septal hematoma. Throat without erythema, tonsillar hypertrophy or exudate. Uvula midline. Airway patent. NECK: Trachea midline. No JVD or lymphadenopathy. Supple, nontender, no meningeal signs. CARDIOVASCULAR: Regular rate and rhythm without murmurs, gallops, or rubs. RESPIRATORY: Clear to auscultation. Breath sounds equal bilaterally. No wheezes , rales, or rhonchi. Decreased bibasilar breath sounds GASTROINTESTINAL: Obese abdomen, soft, non-tender, nondistended. No hepato- splenomegaly, or palpable masses. No guarding. MUSCULOSKELETAL: Extremities without clubbing, cyanosis, or edema. No joint tenderness, effusion, or edema noted. No calf tenderness. Negative Homans sign bilaterally. NEUROLOGICAL: Awake and alert. Cranial nerves II through XII intact. Motor and sensory grossly within normal limits. Five out of 5 muscle strength in all muscle groups. Normal speech. Assessment/Plan Assessment 67-year-old female with a previous history of a T2 N1 M0 invasive lobular carcinoma of the left breast diagnosed in August 2015. She was treated with surgical resection followed by adjuvant endocrine therapy alone. She is treated initially in [facility], she relocated to [place] about a year ago and established follow-up with me in July 2017. Please review history of presenting illness section for further details as well as my outpatient notes for additional details. The patient was advised to come into the hospital last night by myself after results of her PET/CT scan were reviewed with the interpreting radiologist. The findings of concern were that of extensive metastatic disease involvement in the lower cervical vertebral bodies. There was concern of impending pathologic fracture which possibly would lead to quadriplegia due to spinal cord compromise/spinal cord compression. She was advised to come into the emergency department for cervical spinal cord stabilization and evaluation by neurosurgery. Neurosurgical evaluation is pending at this time. Plan 1. Obtain C spine x-rays flexion and extension, Dr. Figueroa will review the x- rays and determine if her C-spine is compromised. This will determine whether she undergoes surgical stabilization versus conservative management with radiation and bisphosphonate therapy alone. 2. I put the CT-guided biopsy of the cervical spine metastasis is on hold for now. In case she may eventually end up going for surgery. 3. I will dose her with pamidronate in the upcoming 1-2 days for management of her bony metastasis. 4. She will eventually require addition of Ibrance to a palliative endocrine agent. Ahsan Zuñiga MD Jan 25, 2018 08:28
[2018-01-25] MEDS: FUROSEMIDE 40 MG TAB PO SCH (09:48)
[2018-01-25] MEDS: CHOLECALCIFEROL (VIT D3) 1000 UNIT TAB PO SCH (09:49)
[2018-01-25] MEDS: DOCUSATE SODIUM 50 MG/SENNA 8.6 MG TAB PO SCH ×2 (09:49→20:05)
[2018-01-25] MEDS: POTASSIUM CHLORIDE 20 MEQ CONTROLLED RELEASE TAB PO SCH (09:49)
[2018-01-25] MEDS: METOPROLOL TARTRATE 25 MG TAB PO SCH (09:49)
[2018-01-25] MEDS: SODIUM CHLORIDE 0.9% FLUSH 10 ML FLUSH IV FLUSH SCH ×2 (09:49→20:08)
[2018-01-25] MEDS: ANASTROZOLE 1 MG TAB PO SCH (09:49)
[2018-01-25] MEDS: PANTOPRAZOLE SODIUM 40 MG VIAL IV PUSH SCH (09:49)
[2018-01-25] MEDS: OXYBUTYNIN CHLORIDE 5 MG TAB PO SCH ×2 (09:49→20:06)
--- NOTE | 2018-01-25 10:09 | RADRPT ---
EXAM DATE/TIME: 01/25/2018 09:17 [facility] COMPARISON: MRI CERVICAL SPINE W & W/O CONTRAST, January 23, 2018, 21:35. INDICATIONS : Evaluate cervical spine mass. MEDICAL HISTORY : Carcinoma, breast. Hypercholesterolemia. Baretts Esophagus . SURGICAL HISTORY : Mastectomy, left. ENCOUNTER: Subsequent ACUITY: 2 days PAIN SCORE: 0/10 LOCATION: Cervical spine. FINDINGS: Flexion and extension views of the cervical spine were performed. There is no evidence of listhesis d uring flexion or extension. Cortical disruption along the posterior inferior margin of the C6 vertebr al body is evident and corresponds to a destructive lesion identified on MRI. Significant degenerative disease or spondylosis is noted at C3-4, C4-5 and C5-6. CONCLUSION: No evidence of instability related to the patient's destructive lesion at the C6 level. Ramiro Walsh MD on January 25, 2018 at 10:04 Board Certified Radiologist. This report was verified electronically.
[2018-01-25] MEDS: FLUTICASONE PROPIONATE 50 MCG/ACT 16 GM NASAL SPRAY EACH NARE SCH ×2 (10:51→20:08)
[2018-01-25] MEDS: TRIAMCINOLONE ACETONIDE 0.1% CREAM 15 GM TOPICAL SCH ×2 (10:52→20:09)
--- NOTE | 2018-01-25 11:21 | HHI.CCPN ---
Subjective Remarks/Hospital Course This is a 67-year-old female. The admission 01/23/2018. Past medical history includes breast cancer/invasive lobular 08/23 T1 N1 M0 estrogen/ progesterone positive HER-2/jack negative. She is undergone a left mastectomy with lymph node resection, morbid obesity, depression, hypertension, dyslipidemia, psoriasis restrictive lung disease. She follows with Dr. Dillard for cardiology for heart murmur along with Dr. Brooks for her restrictive lung disease/pulmonology. Her oncologist is Dr. Zuñiga. For the past several months, patient is experiencing tingling sensations involving the thumb and first finger of her left upper extremity along with pain in her right shoulder/forearm. She seen a chiropractor. She has had multiple imaging done which revealed possible metastases to her left iliac crest initially. She recently had a PET scan which was read as possible cervical spine metastasis. MRI of the C-spine performed feel the C6 vertebral body enhancement with a posterior mass with multiple areas of disc protrusion. Dr. Figueroa was notified/ neurosurgery. Recommended Decadron and placed in the Harmony collar. He will evaluate patient in a.m. Dr. Zuñiga will be notified/or oncologist. She is hemodynamically stable. Complaining of some numbness/tingling in her left upper extremity only left thumb/finger. No focal neurological deficits as far strength is concerned. Full range of motion but painful to movement. Subjective: 01/24: GCS 15. Patient awake alert moving extremities 4. No focal or sensory deficits this a.m.. Neurosurgery, Dr. Figueroa in for evaluation of the patient. No plans for neurosurgical intervention at this time. Plan for CT guided aspiration of the lesion this am. Radiation oncologist consulted/urgent. Discussed case with Dr. Omer. Plan for XRT simulation and plan of treatment/ care this afternoon. 01/25: No acute events overnight. Cervical x-rays performed flexion and extension of cervical spine without any evidence of instability. Dr. Figueroa to review films. tentative plans for initiation of radiation therapy today. Objective Vital Signs Date Time Temp Pulse Resp B/P (MAP) Pulse Ox O2 Delivery O2 Flow Rate FiO2 01/25/18 06:00 70 01/25/18 05:53 16 01/25/18 04:00 98.8 173/73 (106) 96 01/24/18 02:40 Nasal Cannula 2.00 Result Diagram: 01/24/18 0543 01/24/18 0500 Imaging Last Impressions Cervical Spine MRI 01/23/18 0000 Signed Impressions: Service Date/Time: Tuesday, January 23, 2018 21:35 - CONCLUSION: 1. Enhancement of C6 vertebral body and posterior elements consistent with mass. There is also enhancement of posterior elements of C5. 2. Multilevel disc bulges and canal stenosis as described above. Noam Ascencio MD Objective Remarks GENERAL: 67-year-old female currently resting in bed in no acute distress SKIN: Warm and dry. HEAD: Atraumatic. Normocephalic. EYES: Pupils equal and round. No scleral icterus. No injection or drainage. ENT: No nasal bleeding or discharge. Mucous membranes pink and moist. NECK: Trachea midline. No JVD. In Harmony collar CARDIOVASCULAR: Regular rate and rhythm. S1, S3 no S4. 2/6 systolic murmur RESPIRATORY: No accessory muscle use. Clear to auscultation. Breath sounds equal bilaterally. GASTROINTESTINAL: Abdomen soft, non-tender, nondistended. Hepatic and splenic margins not palpable. MUSCULOSKELETAL: Extremities with trace nonpitting peripheral edema. No obvious deformities. NEUROLOGICAL: Awake and alert. No obvious cranial nerve deficits. Motor grossly within normal limits. 5/5 muscle strength in the arms and legs. Normal speech. Decreased sensation to light touch and pinprick over left thumb/index finger. PSYCHIATRIC: Appropriate mood and affect; insight and judgment normal. A/P Assessment and Plan Neuro/Psych: C6, 7 vertebral body mass Depression disorder NOS MRI C-spine revealed C6 vertebral body enhancement with posterior mass likely. Posterior enhancement of C5 vertebral body. Multiple areas of disc protrusion and canal stenosis identified Dr. Figueroa NSGY evaluation-no neurosurgical intervention at this time Recommend dexamethasone 6 mg IV 1 x 4 mg every 6 hours. Harmony collar placement Resume levomilnacipran 120 mg. Daily/depression Acetaminophen 650 mg every 6 hours as needed fever/pain 1 through 10 Morphine sulfate 2 mg IV every 3 hours as needed breakthrough pain. Noted allergy to hydromorphone is adverse reaction/hallucinations according to patient Holding lorazepam 1 mg at night. Resume pramipexole 1 mg daily 01/24 Urgent consult to radiation oncology- Dr. Omer, plan for radiation oncology for simulation and initiation of plan of treatment Maintain bed rest 01/25: Cervical spine flexion and extension x-rayno evidence of instability,Of destructive lesion C6 01/25 plan for initiation of radiation therapy CV: Hypertension Dyslipidemia Resume metoprolol 25 mg p.o. daily for hypertension along with lisinopril 5 mg daily. Holding pravastatin 40 mg p.o. daily for dyslipidemia. Resume clinically indicated Holding aspirin [address] 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 Echocardiogram 04/24 revealed essentially normal LV function. No regional wall motion abnormalities. Continue furosemide 60 mg by mouth daily and potassium chloride 20 mEq by mouth p.o. 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 3 times daily. On pantoprazole 40 mg IV daily. On omeprazole 40 mg by mouth daily at home Docusate sodium/senna 1 tablet twice daily for bowel regimen Resume regular diet-if no neurosurgical intervention planned : Overflow incontinence Continue oxybutynin 5 mg p.o. twice daily Endo: Hyperglycemia Sliding scale insulin Accu-Cheks to maintain euglycemia/AC/at bedtime with median Novulin R sliding-scale while on steroids TSH 1.8 Renal: Creatinine slightly elevated 1.1 Monitor urine output Accurate I's and O Heme: History of invasive lobular carcinoma of the left breast T2 N1 M0 estrogen saturation positive hernia negative currently on anastrozole 1 mg p.o. daily Microcytosis Counseled Dr. Zuñiga management ID: Monitor for infection MSK: Psoriasis Continue triamcinolone cream PT/OT evaluate and treat FEN: Replace electrolytes as clinically indicated Access -Utilize peripheral IV. Central line if indicated Prophylaxis -GI -pantoprazole -DVT -SCD/heparin subcu Level 2 [facility]. [facility] when bed becomes available Physician Judith Koch MD Jan 25, 2018 11:21
--- NOTE | 2018-01-25 16:49 | HHI.NSPN ---
(Trista Suh) Note Status Status: Progress Note (Trista Suh) Interval History Interval History This is a 67-year-old female with history includes breast cancer/invasive, lobular 08/23 T1 N1 M0 estrogen/progesterone positive HER-2/jack negative. She is status post left mastectomy with lymph node resection, morbid obesity, depression, hypertension, dyslipidemia, psoriasis restrictive lung disease. She experiencing tingling sensations involving the thumb and first finger of her left upper extremity along with pain in her right shoulder/forearm. She has been seen a chiropractor. She has had multiple imaging done which revealed possible metastases to her left iliac crest initially. She recently had a PET scan which was read as possible cervical spine metastasis. MRI of the C-spine performed feel the C6 vertebral body enhancement with a posterior mass with multiple areas of disc protrusion. She is hemodynamically stable. She reports numbness/tingling in her left upper extremity only left thumb/finger. No focal neurological deficits.She denies focal weakness. Denies sensory loss. Denies incontinence of stool or urine. Full range of motion but painful to movement. 01/25: Flexion extension x-ray reviewed by Dr. Figueroa no instability, stable paresthesias in her upper extremities. (Trista Suh) Labs, Micro, & Vital Signs Results Date Time Temp Pulse Resp B/P (MAP) Pulse Ox O2 Delivery O2 Flow Rate FiO2 01/25/18 16:01 62 18 161/70 (100) 94 01/25/18 16:01 62 01/25/18 16:00 63 20 94 01/25/18 16:00 63 01/25/18 13:01 62 29 139/67 (91) 96 01/25/18 13:01 62 01/25/18 12:01 64 01/25/18 12:01 64 33 136/84 (101) 97 01/25/18 12:00 64 27 97 01/25/18 12:00 64 01/25/18 11:42 63 01/25/18 11:42 63 21 133/62 (85) 97 4/19/18 10:23 72 24 164/74 (104) 97 18 10:23 72 18 10:20 83 22 184/87 (119) 99 18 10:20 83 18 08:01 87 18 08:01 87 33 165/70 (101) 100 01/25/18 08:00 86 18 08:00 96 01/25/18 08:00 86 26 98 01/25/18 06:00 70 01/25/18 05:53 16 01/25/18 04:00 78 01/25/18 04:00 98.8 78 26 173/73 (106) 96 01/25/18 02:00 76 01/25/18 00:00 99.0 79 28 145/98 (114) 96 01/25/18 00:00 79 01/24/18 22:00 83 01/24/18 20:00 99.0 82 26 153/65 (94) 96 01/24/18 20:00 82 01/24/18 18:00 86 Constitutional Vital Signs Date Time Temp Pulse Resp B/P (MAP) Pulse Ox O2 Delivery O2 Flow Rate FiO2 01/25/18 16:01 62 18 161/70 (100) 94 18 16:01 62 01/25/18 16:00 63 20 94 01/25/18 16:00 63 01/25/18 13:01 62 29 139/67 (91) 96 01/25/18 13:01 62 01/25/18 12:01 64 18 12:01 64 33 136/84 (101) 97 18 12:00 64 27 97 18 12:00 64 18 11:42 63 18 11:42 63 21 133/62 (85) 97 18 10:23 72 24 164/74 (104) 97 18 10:23 72 18 10:20 83 22 184/87 (119) 99 18 10:20 83 18 08:01 87 18 08:01 87 33 165/70 (101) 100 01/25/18 08:00 86 01/25/18 08:00 96 01/25/18 08:00 86 26 98 01/25/18 06:00 70 01/25/18 05:53 16 01/25/18 04:00 78 01/25/18 04:00 98.8 78 26 173/73 (106) 96 01/25/18 02:00 76 01/25/18 00:00 99.0 79 28 145/98 (114) 96 01/25/18 00:00 79 01/24/18 22:00 83 01/24/18 20:00 99.0 82 26 153/65 (94) 96 01/24/18 20:00 82 01/24/18 18:00 86 (Trista Suh) Physical Exam Ms. Sellers is alert, awake. Speech is fluent. Higher cognitive functions are normal. Cranial nerve examination demonstrates the pupils to be equal, round, and reactive to light. Facial motor are normal and symmetrical. Gross hearing is intact, bilaterally. Neck is immobilized by a [place] collar Muscle testing reveals normal bulk and tone. Moving all major muscle groups of upper and lower extremities well (Trista Suh) Alert, awake, comfortable. [place] collar in lace Cranial nerve examination demonstrates the pupils to be equal, round, and reactive to light. Facial motor are normal and symmetrical. Gross hearing is intact, bilaterally. Neck is immobilized by a [place] collar Muscle testing reveals normal bulk and tone. Moving all major muscle groups of upper and lower extremities well Sensory examination is intact to light touch and pin prick in both the upper and lower extremities. Deep tendon reflexes are symmetrical in both upper and lower extremities. There is a bilateral plantar flexion response. Cerebellar examination is unremarkable, without deficits. Lungs. Clear heart RRR Skin. warm and dry (Alec Figueroa MD) Medications Current Medications Current Medications Medications (Trade) Dose Ordered Sig/Wendi Route PRN Reason Start Time Stop Time Status Last Admin Dose Admin Sodium Chloride 1,000 ml @ 84 mls/hr [id number] IV 01/23/18 23:35 01/25/18 05:24 Sodium Chloride (NS Flush) 2 ml UNSCH PRN IV FLUSH FLUSH AFTER USING IV ACCESS 01/23/18 23:45 01/24/18 08:52 Sodium Chloride (NS Flush) 2 ml BID IV FLUSH 01/24/18 09:00 01/25/18 09:49 Acetaminophen (Tylenol) 650 mg Q6H PRN PO FEVER >101F 01/23/18 23:45 Pantoprazole Sodium (Protonix Inj) 40 mg DAILY IV PUSH 01/24/18 09:00 01/25/18 09:49 Ondansetron HCl (Zofran Inj) 4 mg Q6H PRN IV PUSH NAUSEA OR VOMITING 01/23/18 23:45 Albuterol Sulfate (Albuterol Neb) 2.5 mg Q2HR NEB PRN INH SOB/WHEEZING 01/23/18 23:45 Heparin Sodium (Porcine) (Heparin Inj) 5,000 units Q12H SQ 01/24/18 00:00 Future Hold 01/24/18 01:35 Miscellaneous Information 1 Q361D XX 01/23/18 23:45 01/23/18 23:45 Chlorhexidine Gluconate (Chlorhexidine 2% Cloth) 3 pack Taper DAILY@04 TOP 01/24/18 04:00 01/20/19 03:59 01/25/18 04:00 Chlorhexidine Gluconate (Chlorhexidine 2% Cloth) 3 pack UNSCH PRN TOP HYGIENIC CARE 01/23/18 23:45 Senna/Docusate Sodium (Cande-Colace) 1 tab BID PO 01/24/18 09:00 01/25/18 09:49 Magnesium Hydroxide (Milk Of Magnesia Liq) 30 ml Q12H PRN PO Mild constipation 01/23/18 23:45 Sennosides (Senokot) 17.2 mg Q12H PRN PO Moderate constipation 01/23/18 23:45 Bisacodyl (Dulcolax Supp) 10 mg DAILY PRN RECTAL SEVERE CONSITIPATION 01/23/18 23:45 Lactulose (Lactulose Liq) 30 ml DAILY PRN PO SEVERE CONSITIPATION 01/23/18 23:45 Dexamethasone Sodium Phosphate (Decadron Inj) 4 mg Q6HR IV PUSH 01/24/18 00:00 01/25/18 11:58 Potassium Chloride 100 ml @ 50 mls/hr Q2H PRN IV For Potassium 2.8 - 3.2 mEq/L 01/23/18 23:45 Potassium Chloride 100 ml @ 50 mls/hr Q2H PRN IV For Potassium 2.8 - 3.2 mEq/L 01/23/18 23:45 Potassium Bicarb/ Potassium Chloride (K-Lyte Cl Eff) 50 meq UNSCH PRN PO For Potassium 3.3 - 3.5 mEq/L 01/23/18 23:45 Potassium Chloride 100 ml @ 25 mls/hr UNSCH PRN IV For Potassium 3.3 - 3.5 mEq/L 01/23/18 23:45 Potassium Chloride 100 ml @ 50 mls/hr Q2H PRN IV For Potassium 3.3 - 3.5 mEq/L 01/23/18 23:45 Magnesium Sulfate 4 gm/Sodium Chloride 100 ml @ 50 mls/hr UNSCH PRN IV For Magnesium 0.9 - 1.1 mg/dL 01/23/18 23:45 Magnesium Oxide (Mag-Ox) 800 mg UNSCH PRN PO For Magnesium 1.2 - 1.6 mg/dL 01/23/18 23:45 Magnesium Sulfate 2 gm/Sodium Chloride 100 ml @ 50 mls/hr UNSCH PRN IV For Magnesium 1.2 - 1.6 mg/dL 01/23/18 23:45 Potassium Phosphate (K-Phos) 2,000 mg Q4H PRN PO For Phosphorus < 2.5 mg/dL 01/23/18 23:45 Sodium Phosphate 30 mmol/Sodium Chloride 250 ml @ 42 mls/hr UNSCH PRN IV For Phosphorus < 2.5 mg/dL 01/23/18 23:45 Potassium Phosphate (K-Phos) 2,000 mg UNSCH PRN PO/TUBE SEE LABEL COMMENTS 01/23/18 23:45 Potassium Phosphate 30 mmol/ Sodium Chloride 260 ml @ 42 mls/hr UNSCH PRN IV SEE LABEL COMMENTS 01/23/18 23:45 Dextrose (D50w (Vial) Inj) 50 ml UNSCH PRN IV PUSH HYPOGLYCEMIA-SEE COMMENTS 01/23/18 23:45 Glucagon (Glucagon Inj) 1 mg UNSCH PRN OTHER HYPOGLYCEMIA-SEE COMMENTS 01/23/18 23:45 Insulin Human Regular (NovoLIN R SUPPLEMENTAL SCALE) 1 ACHS SLIDING SCALE SQ 01/24/18 08:00 01/24/18 20:38 Morphine Sulfate (Morphine Inj) 2 mg Q3H PRN IV PUSH Breakthrough pain 01/23/18 23:45 01/25/18 05:42 Anastrozole (Arimidex) 1 mg DAILY PO 01/24/18 09:00 01/25/18 09:49 Fluticasone Propionate (Flonase Nick Spr) 1 spray BID EACH NARE 01/24/18 09:00 01/25/18 10:51 Furosemide (Lasix) 60 mg DAILY PO 01/24/18 09:00 01/25/18 09:48 Metoprolol Tartrate (Lopressor) 25 mg DAILY PO 01/24/18 09:00 01/25/18 09:49 Oxybutynin Chloride (Ditropan) 5 mg Q12HR PO 01/24/18 09:00 01/25/18 09:49 Potassium Chloride (KCl) 20 meq DAILY PO 01/24/18 09:00 01/25/18 09:49 Triamcinolone Acetonide (Aristocort 0.1% Cream) 1 applic BID TOPICAL 01/24/18 09:00 01/25/18 10:52 Cholecalciferol (Vitamin D3) 2,000 units DAILY PO 01/24/18 09:00 01/25/18 09:49 Patient Own Medication PT OWN MED: Levomilnacipran ER (Fetz... DAILY PO 01/24/18 09:00 Future Hold Pramipexole Dihydrochloride (Mirapex) 1 mg HS PO 01/24/18 21:00 01/24/18 20:57 Albuterol/ Ipratropium (Duoneb Neb) 1 ampule Q4HR NEB NEB 01/24/18 00:00 01/24/18 12:25 (Trista Suh) Current Medications Current Medications Morphine Sulfate (Morphine Inj) 4 mg ONCE ONCE IV PUSH Last administered on at 19:36; Start 01/23/18 at 19:30; Stop 01/23/18 at 19:31; Status DC Ondansetron HCl (Zofran Inj) 4 mg ONCE ONCE IV PUSH Last administered on at 19:36; Start 01/23/18 at 19:30; Stop 01/23/18 at 19:31; Status DC Gadodiamide (Omniscan Pf Inj) 5 ml STK-MED ONCE IVCONTRAST Last administered on 01/23/18at 23:15; Start 01/23/18 at 17:09; Stop 01/23/18 at 23:11; Status DC Gadodiamide (Omniscan Pf Inj) 20 ml STK-MED ONCE IVCONTRAST Last administered on 01/23/18at 23:14; Start 01/23/18 at 17:09; Stop 01/23/18 at 23:11; Status DC Dexamethasone Sodium Phosphate (Decadron Inj) 6 mg ONCE ONCE IV PUSH Last administered on 01/23/18at 23:46; Start 01/23/18 at 23:30; Stop 01/23/18 at 23:31 ; Status DC Sodium Chloride 1,000 ml @ 84 mls/hr [id number] IV Last administered on at 23:13; Start 01/23/18 at 23:35; Stop 01/26/18 at 16:32; Status DC Sodium Chloride (NS Flush) 2 ml UNSCH PRN IV FLUSH FLUSH AFTER USING IV ACCESS Last administered on 01/24/18at 08:52; Start 01/23/18 at 23:45; Stop 01/26/18 at 16:32; Status DC Sodium Chloride (NS Flush) 2 ml BID IV FLUSH Last administered on 01/26/18at 07: 55; Start 01/24/18 at 09:00; Stop 01/26/18 at 16:32; Status DC Acetaminophen (Tylenol) 650 mg Q6H PRN PO FEVER >101F; Start 01/23/18 at 23:45 ; Stop 01/26/18 at 16:32; Status DC Pantoprazole Sodium (Protonix Inj) 40 mg DAILY IV PUSH Last administered on at 07:54; Start 01/24/18 at 09:00; Stop 01/26/18 at 16:32; Status DC Ondansetron HCl (Zofran Inj) 4 mg Q6H PRN IV PUSH NAUSEA OR VOMITING; Start at 23:45; Stop 01/26/18 at 16:33; Status DC Albuterol Sulfate (Albuterol Neb) 2.5 mg Q2HR NEB PRN INH SOB/WHEEZING; Start 01/23/18 at 23:45; Stop 01/26/18 at 16:33; Status DC Heparin Sodium (Porcine) (Heparin Inj) 5,000 units Q12H SQ Last administered on 01/24/18at 01:35; Start 01/24/18 at 00:00; Stop 01/26/18 at 16:33; Status DC Miscellaneous Information 1 Q361D XX Last administered on 01/23/18at 23:45; Start 01/23/18 at 23:45; Stop 01/26/18 at 16:33; Status DC Chlorhexidine Gluconate (Chlorhexidine 2% Cloth) 3 pack Taper DAILY@04 TOP Last administered on 01/26/18at 04:00; Start 01/24/18 at 04:00; Stop 01/26/18 at 16:33; Status DC Chlorhexidine Gluconate (Chlorhexidine 2% Cloth) 3 pack UNSCH PRN TOP HYGIENIC CARE; Start 01/23/18 at 23:45; Stop 01/26/18 at 16:33; Status DC Senna/Docusate Sodium (Cande-Colace) 1 tab BID PO Last administered on at 07:54; Start 01/24/18 at 09:00; Stop 01/26/18 at 16:33; Status DC Magnesium Hydroxide (Milk Of Magnesia Liq) 30 ml Q12H PRN PO Mild constipation ; Start 01/23/18 at 23:45; Stop 01/26/18 at 16:33; Status DC Sennosides (Senokot) 17.2 mg Q12H PRN PO Moderate constipation; Start 01/23/18 at 23:45; Stop 01/26/18 at 16:33; Status DC Bisacodyl (Dulcolax Supp) 10 mg DAILY PRN RECTAL SEVERE CONSITIPATION; Start at 23:45; Stop 01/26/18 at 16:33; Status DC Lactulose (Lactulose Liq) 30 ml DAILY PRN PO SEVERE CONSITIPATION; Start at 23:45; Stop 01/26/18 at 16:33; Status DC Dexamethasone Sodium Phosphate (Decadron Inj) 4 mg Q6HR IV PUSH Last administered on 01/26/18at 05:44; Start 01/24/18 at 00:00; Stop 01/26/18 at 09:30 ; Status DC Potassium Chloride 100 ml @ 50 mls/hr Q2H PRN IV For Potassium 2.8 - 3.2 mEq/L ; Start 01/23/18 at 23:45; Stop 01/26/18 at 16:33; Status DC Potassium Chloride 100 ml @ 50 mls/hr Q2H PRN IV For Potassium 2.8 - 3.2 mEq/L ; Start 01/23/18 at 23:45; Stop 01/26/18 at 16:33; Status DC Potassium Bicarb/ Potassium Chloride (K-Lyte Cl Eff) 50 meq UNSCH PRN PO For Potassium 3.3 - 3.5 mEq/L; Start 01/23/18 at 23:45; Stop 01/26/18 at 16:33; Status DC Potassium Chloride 100 ml @ 25 mls/hr UNSCH PRN IV For Potassium 3.3 - 3.5 mEq /L; Start 01/23/18 at 23:45; Stop 01/26/18 at 16:33; Status DC Potassium Chloride 100 ml @ 50 mls/hr Q2H PRN IV For Potassium 3.3 - 3.5 mEq/L ; Start 01/23/18 at 23:45; Stop 01/26/18 at 16:33; Status DC Magnesium Sulfate 4 gm/Sodium Chloride 100 ml @ 50 mls/hr UNSCH PRN IV For Magnesium 0.9 - 1.1 mg/dL; Start 01/23/18 at 23:45; Stop 01/26/18 at 16:33; Status DC Magnesium Oxide (Mag-Ox) 800 mg UNSCH PRN PO For Magnesium 1.2 - 1.6 mg/dL; Start 01/23/18 at 23:45; Stop 01/26/18 at 16:33; Status DC Magnesium Sulfate 2 gm/Sodium Chloride 100 ml @ 50 mls/hr UNSCH PRN IV For Magnesium 1.2 - 1.6 mg/dL; Start 01/23/18 at 23:45; Stop 01/26/18 at 16:33; Status DC Potassium Phosphate (K-Phos) 2,000 mg Q4H PRN PO For Phosphorus < 2.5 mg/dL; Start 01/23/18 at 23:45; Stop 01/26/18 at 16:33; Status DC Sodium Phosphate 30 mmol/Sodium Chloride 250 ml @ 42 mls/hr UNSCH PRN IV For Phosphorus < 2.5 mg/dL; Start 01/23/18 at 23:45; Stop 01/26/18 at 16:33; Status DC Potassium Phosphate (K-Phos) 2,000 mg UNSCH PRN PO/TUBE SEE LABEL COMMENTS; Start 01/23/18 at 23:45; Stop 01/26/18 at 16:33; Status DC Potassium Phosphate 30 mmol/ Sodium Chloride 260 ml @ 42 mls/hr UNSCH PRN IV SEE LABEL COMMENTS; Start 01/23/18 at 23:45; Stop 01/26/18 at 16:33; Status DC Dextrose (D50w (Vial) Inj) 50 ml UNSCH PRN IV PUSH HYPOGLYCEMIA-SEE COMMENTS; Start 01/23/18 at 23:45; Stop 01/26/18 at 16:33; Status DC Glucagon (Glucagon Inj) 1 mg UNSCH PRN OTHER HYPOGLYCEMIA-SEE COMMENTS; Start 01/23/18 at 23:45; Stop 01/26/18 at 16:33; Status DC Insulin Human Regular (NovoLIN R SUPPLEMENTAL SCALE) 1 ACHS SLIDING SCALE SQ Last administered on 01/24/18at 20:38; Start 01/24/18 at 08:00; Stop 01/26/18 at 16:33; Status DC Morphine Sulfate (Morphine Inj) 2 mg Q3H PRN IV PUSH Breakthrough pain Last administered on 01/25/18at 23:13; Start 01/23/18 at 23:45; Stop 01/26/18 at 16:33 ; Status DC Anastrozole (Arimidex) 1 mg DAILY PO Last administered on 01/26/18at 07:54; Start 01/24/18 at 09:00; Stop 01/26/18 at 16:33; Status DC Fluticasone Propionate (Flonase Nick Spr) 1 spray BID EACH NARE Last administered on 01/26/18at 07:53; Start 01/24/18 at 09:00; Stop 01/26/18 at 16:33 ; Status DC Furosemide (Lasix) 60 mg DAILY PO Last administered on 01/26/18at 07:54; Start 01/24/18 at 09:00; Stop 01/26/18 at 16:33; Status DC Metoprolol Tartrate (Lopressor) 25 mg DAILY PO Last administered on 01/26/18at 07:54; Start 01/24/18 at 09:00; Stop 01/26/18 at 16:33; Status DC Oxybutynin Chloride (Ditropan) 5 mg Q12HR PO Last administered on 01/26/18at 07: 54; Start 01/24/18 at 09:00; Stop 01/26/18 at 16:33; Status DC Potassium Chloride (KCl) 20 meq DAILY PO Last administered on 01/26/18at 07:55; Start 01/24/18 at 09:00; Stop 01/26/18 at 16:33; Status DC Triamcinolone Acetonide (Aristocort 0.1% Cream) 1 applic BID TOPICAL Last administered on 01/26/18at 07:54; Start 01/24/18 at 09:00; Stop 01/26/18 at 16:33 ; Status DC Cholecalciferol (Vitamin D3) 2,000 units DAILY PO Last administered on at 07:54; Start 01/24/18 at 09:00; Stop 01/26/18 at 16:33; Status DC Patient Own Medication PT OWN MED: Levomilnacipran ER (Fetz... DAILY PO ; Start 01/24/18 at 09:00; Stop 01/26/18 at 16:33; Status DC Pramipexole Dihydrochloride (Mirapex) 1 mg HS PO Last administered on at 20:05; Start 01/24/18 at 21:00; Stop 01/26/18 at 16:33; Status DC Albuterol/ Ipratropium (Duoneb Neb) 1 ampule Q4HR NEB NEB Last administered on 01/24/18at 12:25; Start 01/24/18 at 00:00; Stop 01/26/18 at 16:33; Status DC Gadodiamide (Omniscan Pf Inj) 24 ml STK-MED ONCE IVCONTRAST Last administered on 01/24/18at 17:00; Start 01/24/18 at 17:00; Stop 01/24/18 at 17:01; Status DC Zoledronic Acid 4 mg/Sodium Chloride 150 ml @ 150 mls/hr ONCE ONCE IV Last administered on 01/26/18at 10:36; Start 01/26/18 at 11:00; Stop 01/26/18 at 11:59 ; Status DC Dexamethasone (Decadron) 1 mg Q12HR PO ; Start 01/26/18 at 21:00; Stop 01/26/18 at 21:00; Status DC (Alec Figueroa MD) Medical Decision Making MDM Remarks 67-year-old female with C6 vertebral body enhancement with a posterior mass with multiple areas of disc protrusion Flexion extension x-ray without instability, history of breast CA (Trista Suh) Plan Plan Remarks continue nonsurgical management with [place] collar, Okay to remove cervical collar when in bed or with meals, Don collar when mobilizing out of bed Dr. Figueroa discussed with medical oncology and radiation oncology (Trista Suh) Attending Statement Continue neuro checks in a serial fashion.. I again discussed with her the alternative methods of treatment including, conservative management, pain management by an interventional painting contractor, or a surgical decompression, which should always be a last resort. Mrs. Sellers does not have any focal neurological deficits. I do not see any neural compression on her MRI. I do not see evidence of instability. I review her flexion-extension x-rays of his cervical spine shoich showed no instability. Recommend nonoperative treatment. I discussed the case with her oncologist, Dr. Zuñiga and with the radiation oncologist, Dr Linn [facility]. Aggressive pulmonary toilette, nasotracheal suction, and breathing treatments with nebulizers. Daily PT and OT Renal. Continue to monitor closely urine output, BUN and creatinine Endocrine. Continue to Monitor serial Acu checks and SSI as needed in detail ID continue to monitor for signs of infection Continue Protonix for stress ulcer prophylaxis Continue Himanshu hose and SCD's for DVT prophylaxis (Alec Figueroa MD) Trista Suh Jan 25, 2018 16:49 Alec Figueroa MD Jan 26, 2018 18:19
[2018-01-25] MEDS: PRAMIPEXOLE DIHYDROCHLORIDE 1 MG TAB PO SCH (20:05)
[2018-01-26] VITALS: BP 146/65; PULSE 63; RESP 18; TEMP 97.8; O2SAT 94
[2018-01-26 04:00] VITALS: BP 150/67; PULSE 65; RESP 17; O2SAT 95
[2018-01-26] MEDS: RESP: ALBUTEROL 2.5 MG/IPRATROPIUM 0.5 MG NEB (SCH) NEB ×5 (04:00→15:55)
[2018-01-26] MEDS: CHLORHEXIDINE GLUCONATE 2 % 1 PACK (2 CLOTHS) TOP SCH (04:00)
[2018-01-26] MEDS: DEXAMETHASONE SOD PHOS 4 MG/ML VIAL IV PUSH SCH (05:44)
[2018-01-26] MEDS: FLUTICASONE PROPIONATE 50 MCG/ACT 16 GM NASAL SPRAY EACH NARE SCH (07:53)
[2018-01-26] MEDS: FUROSEMIDE 40 MG TAB PO SCH (07:54)
[2018-01-26] MEDS: DOCUSATE SODIUM 50 MG/SENNA 8.6 MG TAB PO SCH (07:54)
[2018-01-26] MEDS: METOPROLOL TARTRATE 25 MG TAB PO SCH (07:54)
[2018-01-26] MEDS: PANTOPRAZOLE SODIUM 40 MG VIAL IV PUSH SCH (07:54)
[2018-01-26] MEDS: CHOLECALCIFEROL (VIT D3) 1000 UNIT TAB PO SCH (07:54)
[2018-01-26] MEDS: ANASTROZOLE 1 MG TAB PO SCH (07:54)
[2018-01-26] MEDS: TRIAMCINOLONE ACETONIDE 0.1% CREAM 15 GM TOPICAL SCH (07:54)
[2018-01-26] MEDS: OXYBUTYNIN CHLORIDE 5 MG TAB PO SCH (07:54)
[2018-01-26] MEDS: POTASSIUM CHLORIDE 20 MEQ CONTROLLED RELEASE TAB PO SCH (07:55)
[2018-01-26] MEDS: SODIUM CHLORIDE 0.9% FLUSH 10 ML FLUSH IV FLUSH SCH (07:55)
[2018-01-26 08:00] VITALS: PULSE 66; PULSE 68; O2SAT 100
[2018-01-26] MEDS: INSULIN NovoLIN REGULAR SUPPLEMENTAL SCALE SQ SCH ×2 (08:00→12:00)
[2018-01-26 08:01] VITALS: BP 169/78; PULSE 70; O2SAT 100
[2018-01-26] MEDS ORDERED: DEXA4TAB PO (09:21)
--- NOTE | 2018-01-26 09:34 | PD.ONC.PN ---
Subjective Subjective Remarks Patient seen and examined, vital signs, labs, medications and imaging studies reviewed. Case discussed with neurosurgery, hospitalist service as well as radiation oncology. Subjectively; patient reports feeling well, she is looking forward to going home later today. She did meet with neurosurgery and talk to them about proceeding with conservative management with Radiation palliative and bisphosphonate therapy with systemic therapeutic interventions as opposed to surgery to stabilize her C -spine. Neuro cognitively and neurovascularly she is intact. Objective Data Date Time Temp Pulse Resp B/P (MAP) Pulse Ox O2 Delivery O2 Flow Rate FiO2 01/26/18 08:01 70 169/78 (108) 100 01/26/18 08:00 66 01/26/18 08:00 68 100 01/26/18 04:00 65 01/26/18 04:00 65 17 150/67 (94) 95 01/26/18 00:00 97.8 63 18 146/65 (92) 94 01/26/18 00:00 63 01/25/18 23:18 17 01/25/18 20:26 97 01/25/18 20:00 74 18 153/97 (115) 97 01/25/18 20:00 74 01/25/18 16:01 62 18 161/70 (100) 94 01/25/18 16:01 62 01/25/18 16:00 63 20 94 01/25/18 16:00 63 01/25/18 13:01 62 29 139/67 (91) 96 01/25/18 13:01 62 01/25/18 12:01 64 01/25/18 12:01 64 33 136/84 (101) 97 01/25/18 12:00 64 27 97 01/25/18 12:00 64 01/25/18 11:42 63 01/25/18 11:42 63 21 133/62 (85) 97 01/25/18 10:23 72 24 164/74 (104) 97 01/25/18 10:23 72 01/25/18 10:20 83 22 184/87 (119) 99 01/25/18 10:20 83 01/26/18 01/26/18 01/26/18 07:00 15:00 23:00 Intake Total 480 ml Balance 480 ml Result Diagram: 01/24/18 0543 01/24/18 0500 Administered Medications Medications (Trade) Dose Ordered Sig/Wendi Route PRN Reason Start Time Stop Time Status Last Admin Dose Admin Sodium Chloride 1,000 ml @ 84 mls/hr [id number] IV 01/23/18 23:35 01/25/18 23:13 Sodium Chloride (NS Flush) 2 ml UNSCH PRN IV FLUSH FLUSH AFTER USING IV ACCESS 01/23/18 23:45 01/24/18 08:52 Sodium Chloride (NS Flush) 2 ml BID IV FLUSH 01/24/18 09:00 01/26/18 07:55 Pantoprazole Sodium (Protonix Inj) 40 mg DAILY IV PUSH 01/24/18 09:00 01/26/18 07:54 Heparin Sodium (Porcine) (Heparin Inj) 5,000 units Q12H SQ 01/24/18 00:00 Future Hold 01/24/18 01:35 Miscellaneous Information 1 Q361D XX 01/23/18 23:45 01/23/18 23:45 Chlorhexidine Gluconate (Chlorhexidine 2% Cloth) 3 pack Taper DAILY@04 TOP 01/24/18 04:00 01/20/19 03:59 01/26/18 04:00 Senna/Docusate Sodium (Cande-Colace) 1 tab BID PO 01/24/18 09:00 01/26/18 07:54 Dexamethasone Sodium Phosphate (Decadron Inj) 4 mg Q6HR IV PUSH 01/24/18 00:00 01/26/18 05:44 Insulin Human Regular (NovoLIN R SUPPLEMENTAL SCALE) 1 ACHS SLIDING SCALE SQ 01/24/18 08:00 01/24/18 20:38 Morphine Sulfate (Morphine Inj) 2 mg Q3H PRN IV PUSH Breakthrough pain 01/23/18 23:45 01/25/18 23:13 Anastrozole (Arimidex) 1 mg DAILY PO 01/24/18 09:00 01/26/18 07:54 Fluticasone Propionate (Flonase Nick Spr) 1 spray BID EACH NARE 01/24/18 09:00 01/26/18 07:53 Furosemide (Lasix) 60 mg DAILY PO 01/24/18 09:00 01/26/18 07:54 Metoprolol Tartrate (Lopressor) 25 mg DAILY PO 01/24/18 09:00 01/26/18 07:54 Oxybutynin Chloride (Ditropan) 5 mg Q12HR PO 01/24/18 09:00 01/26/18 07:54 Potassium Chloride (KCl) 20 meq DAILY PO 01/24/18 09:00 01/26/18 07:55 Triamcinolone Acetonide (Aristocort 0.1% Cream) 1 applic BID TOPICAL 01/24/18 09:00 01/26/18 07:54 Cholecalciferol (Vitamin D3) 2,000 units DAILY PO 01/24/18 09:00 01/26/18 07:54 Pramipexole Dihydrochloride (Mirapex) 1 mg HS PO 01/24/18 21:00 01/25/18 20:05 Albuterol/ Ipratropium (Duoneb Neb) 1 ampule Q4HR NEB NEB 01/24/18 00:00 01/24/18 12:25 Objective Remarks GENERAL: Middle-aged lady, laying in bed, she has a c-collar on. She appears to be no acute distress. She speaks to me in full sentences. She is alert and oriented 3. SKIN: Psoriasis, mostly noted on the extensor surfaces. HEAD: Atraumatic. Normocephalic. No temporal or scalp tenderness. EYES: Pupils equal round and reactive. Extraocular motions intact. No scleral icterus. No injection or drainage. ENT: Nose without bleeding, purulent drainage or septal hematoma. Throat without erythema, tonsillar hypertrophy or exudate. Uvula midline. Airway patent. NECK: Trachea midline. No JVD or lymphadenopathy. Supple, nontender, no meningeal signs. CARDIOVASCULAR: Regular rate and rhythm without murmurs, gallops, or rubs. RESPIRATORY: Clear to auscultation. Breath sounds equal bilaterally. No wheezes , rales, or rhonchi. Decreased bibasilar breath sounds GASTROINTESTINAL: Obese abdomen, soft, non-tender, nondistended. No hepato- splenomegaly, or palpable masses. No guarding. MUSCULOSKELETAL: Extremities without clubbing, cyanosis, or edema. No joint tenderness, effusion, or edema noted. No calf tenderness. Negative Homans sign bilaterally. NEUROLOGICAL: Awake and alert. Cranial nerves II through XII intact. Motor and sensory grossly within normal limits. Five out of 5 muscle strength in all muscle groups. Normal speech. Assessment/Plan Assessment 67-year-old female with a previous history of a T2 N1 M0 invasive lobular carcinoma of the left breast diagnosed in August 2015. She was treated with surgical resection followed by adjuvant endocrine therapy alone. She is treated initially in [facility], she relocated to [place] about a year ago and established follow-up with me in July 2017. Please review history of presenting illness section for further details as well as my outpatient notes for additional details. The patient was advised to come into the hospital last night by myself after results of her PET/CT scan were reviewed with the interpreting radiologist. The findings of concern were that of extensive metastatic disease involvement in the lower cervical vertebral bodies. There was concern of impending pathologic fracture which possibly would lead to quadriplegia due to spinal cord compromise/spinal cord compression. She was advised to come into the emergency department for cervical spinal cord stabilization and evaluation by neurosurgery. Neurosurgical evaluation is pending at this time. Plan 1. 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 I will transition her to [facility] with Faslodex as systemic therapy for metastatic disease. I have decreased dexamethasone 1 mg p.o. twice daily. And will taper this off entirely in the outpatient setting. Follow-up with me in the upcoming 1-2 weeks in my [place] clinic. Ahsan Zuñiga MD Jan 26, 2018 09:34
--- NOTE | 2018-01-26 10:38 | HHI.DS ---
Discharge Summary Admission Date Jan 23, 2018 at 23:45 Discharge Date: Jan 26, 2018 Admitting Diagnosis C6 mass; h/o breast cancer (1) Breast cancer in female ICD Code: C50.919 - Malignant neoplasm of unspecified site of unspecified female breast Diagnosis: Principal (2) Cervical spinal mass ICD Code: G95.9 - Disease of spinal cord, unspecified Diagnosis: Principal Status: Acute (3) Gastroesophageal reflux disease ICD Code: K21.9 - Gastro-esophageal reflux disease without esophagitis Diagnosis: Secondary (4) Essential hypertension ICD Code: I10 - Essential (primary) hypertension Diagnosis: Secondary (5) Restrictive lung disease ICD Code: J98.4 - Other disorders of lung Diagnosis: Secondary (6) BMI 40.0-44.9, adult ICD Code: Z68.41 - Body mass index (BMI) 40.0-44.9, adult Diagnosis: Principal (7) Hyperlipidemia ICD Code: E78.5 - Hyperlipidemia, unspecified Diagnosis: Secondary Status: Acute (8) Left hip pain ICD Code: M25.552 - Pain in left hip Diagnosis: Principal Status: Acute (9) Elevated alkaline phosphatase level ICD Code: R74.8 - Abnormal levels of other serum enzymes Diagnosis: Secondary Status: Chronic (10) Psoriasis ICD Code: L40.9 - Psoriasis, unspecified Diagnosis: Secondary Status: Chronic (11) Vitamin D deficiency ICD Code: E55.9 - Vitamin D deficiency, unspecified Diagnosis: Secondary Status: Chronic Procedures None Brief History - From Admission This is a 67-year-old female. The admission 01/23/2018. Past medical history includes breast cancer/invasive lobular 08/23 T1 N1 M0 estrogen/ progesterone positive HER-2/jack negative. She is undergone a left mastectomy with lymph node resection, morbid obesity, depression, hypertension, dyslipidemia, psoriasis restrictive lung disease. She follows with Dr. Dillard for cardiology for heart murmur along with Dr. Brooks for her restrictive lung disease/pulmonology. Her oncologist is Dr. Zuñiga. For the past several months, patient is experiencing tingling sensations involving the thumb and first finger of her left upper extremity along with pain in her right shoulder/forearm. She seen a chiropractor. She has had multiple imaging done which revealed possible metastases to her left iliac crest initially. She recently had a PET scan which was read as possible cervical spine metastasis. MRI of the C-spine performed feel the C6 vertebral body enhancement with a posterior mass with multiple areas of disc protrusion. Dr. Figueroa was notified/ neurosurgery. Recommended Decadron and placed in the [place] collar. He will evaluate patient in a.m. Dr. Zuñiga will be notified/or oncologist. She is hemodynamically stable. Complaining of some numbness/tingling in her left upper extremity only left thumb/finger. No focal neurological deficits as far strength is concerned. Full range of motion but painful to movement. CBC/BMP: 01/24/18 0543 01/24/18 0500 Significant Findings Laboratory Tests Test 01/23/18 19:10 01/23/18 20:05 01/24/18 01:00 01/24/18 05:00 Mean Corpuscular Volume 79.8 FL (80.0-100.0) Mean Corpuscular Hemoglobin 26.5 PG (27.0-34.0) Red Cell Distribution Width 17.4 % (11.6-17.2) Eosinophils (%) (Auto) 5.4 % (0.0-4.0) Eosinophils # (Auto) 0.5 TH/MM3 (0-0.4) Blood Urea Nitrogen 21 MG/DL (7-18) 20 MG/DL (7-18) Creatinine 1.13 MG/DL (0.50-1.00) 1.06 MG/DL (0.50-1.00) Random Glucose 120 MG/DL (74-106) 133 MG/DL (74-106) Alkaline Phosphatase 254 U/L (45-117) 215 U/L (45-117) Estimat Glomerular Filtration Rate 48 ML/MIN (>89) 52 ML/MIN (>89) Aspartate Amino Transf (AST/SGOT) 38 U/L (15-37) Test 01/24/18 05:43 Hemoglobin 11.2 GM/DL (11.6-15.3) Hematocrit 34.4 % (35.0-46.0) Mean Corpuscular Hemoglobin 26.3 PG (27.0-34.0) Red Cell Distribution Width 17.3 % (11.6-17.2) Neutrophils (%) (Auto) 81.6 % (16.0-70.0) Hospital Course Mrs. Sellers is a 67 year old female with a history of breast cancer. She came to the hospital for evaluation of left hip pain. Etiology is found to be likely related to metastatic disease. Of greatest concern is a C6 lesion. Initially concern for instability was present and surgical intervention was entertained. This is not recommended to be the best option for her right now. She has been placed in a C-collar and started on Decadron. Chemotherapy and Radiation are planned. The patient is medically stable and cleared at this point for discharge to home. Pt Condition on Discharge: Stable Discharge Disposition: Discharge Home Discharge Time: <= 30 minutes Discharge Instructions DIET: Follow Instructions for: As Tolerated, No Restrictions Activities you can perform: Regular-No Restrictions Follow up Referrals: Oncology PCP Follow-up - 2 Weeks New Medications: Dexamethasone (Dexamethasone) 4 Mg Tab 4 MG PO BID for Inflammation, #60 TAB 0 Refills Continued Medications: Albuterol 18 GM Inh (Ventolin Hfa 18 GM Inh) 90 Mcg/Act Aer 2 PUFF INH Q6H PRN for SHORTNESS OF BREATH, #1 INHALER 0 Refills Anastrozole (Anastrozole) 1 Mg Tab 1 MG PO DAILY for Breast Cancer, #30 TAB 0 Refills Aspirin (Aspirin) 81 Mg Chew 81 CHEW DAILY, TAB 0 Refills Cholecalciferol (Vitamin D) 2,000 Unit Cap 1 CAP PO DAILY Fluticasone Nasal [place] (Fluticasone Nasal [place]) 50 Mcg/Act Naspr 50 MCG EACH NARE BID for Allergy Management, #1 BOTTLE 0 Refills 50 mcg/spray Furosemide (Furosemide) 40 Mg Tab 60 MG PO DAILY, #30 TAB 1 Refill take one and a half tabs daily Ipratropium-Albuterol Neb (Duoneb) 0.5-2.5 Mg/3 Ml Neb 1 NEBULE INH Q4HR NEB for Breathing Treatment, #180 NEBULE 0 Refills Levomilnacipran ER (Fetzima ER) 120 Mg Caper 120 MG PO DAILY for Control Depression, #30 CAP 0 Refills Lisinopril (Lisinopril) 5 Mg Tab 5 MG PO DAILY for Blood Pressure Management, #90 TAB 1 Refill Lorazepam (Ativan) 1 Mg Tab 1 MG PO HS PRN for ANXIETY AND/OR AGITATION, #6 TAB 0 Refills Metoprolol Tartrate (Metoprolol Tartrate) 25 Mg Tab 25 MG PO DAILY for Blood Pressure Management, #90 TAB 1 Refill Omeprazole (Omeprazole) 40 Mg Cap 40 MG PO DAILY, #90 CAP 1 Refill Orlistat (Xenical) 120 Mg Cap 1 CAP PO TIDAC, #90 CAP Oxybutynin (Ditropan) 5 Mg Tab 5 MG PO Q12HR for Urinary Symptom Managemen, #60 TAB 0 Refills Potassium Chloride ER (K-Tab) 20 Meq Tab 20 MEQ PO DAILY for Electrolyte Replacement, #90 TAB 1 Refill Pramipexole (Pramipexole) 0.5 Mg Tab 1 MG PO HS for restless leg syndrome, #120 TAB 1 Refill Pravastatin (Pravastatin) 40 Mg Tab 40 MG PO DAILY for Cholesterol Management, #90 TAB 1 Refill Triamcinolone Topical (Triamcinolone Topical) 0.1% Cream 1 APPLIC TOPICAL BID for Inflammation, #45 GM 0 Refills Discontinued Medications: Methylprednisolone Dosepak (Methylprednisolone Dosepak) 4 Dspk 4 MG PO DIRECTED for Inflammation, #1 DSPK 0 Refills Per Pharmacist Direction Richard Hernandez MD Jan 26, 2018 10:38
[2018-01-26] MEDS ORDERED: ZOLEDRONIC ACID INJ 4 MG in SODIUM CHLOR 0.9% 250 ML INJ 150 ML IV ONE (11:00)
[2018-01-26] MEDS: SODIUM CHLOR 0.9% 1000 ML INJ 1,000 ML IV SCH (11:10)
[2018-01-26 12:00] VITALS: PULSE 72; RESP 26; O2SAT 97
[2018-01-26 12:01] VITALS: BP 181/80; PULSE 72; RESP 24; O2SAT 96
--- NOTE | 2018-01-26 18:15 | HHI.NSPN ---
Note Status Status: Progress Note Interval History Interval History This is a 67-year-old female with history includes breast cancer/invasive, lobular 08/23 T1 N1 M0 estrogen/progesterone positive HER-2/jack negative. She is status post left mastectomy with lymph node resection, morbid obesity, depression, hypertension, dyslipidemia, psoriasis restrictive lung disease. She experiencing tingling sensations involving the thumb and first finger of her left upper extremity along with pain in her right shoulder/forearm. She has been seen a chiropractor. She has had multiple imaging done which revealed possible metastases to her left iliac crest initially. She recently had a PET scan which was read as possible cervical spine metastasis. MRI of the C-spine performed feel the C6 vertebral body enhancement with a posterior mass with multiple areas of disc protrusion. She is hemodynamically stable. She reports numbness/tingling in her left upper extremity only left thumb/finger. No focal neurological deficits.She denies focal weakness. Denies sensory loss. Denies incontinence of stool or urine. Full range of motion but painful to movement. 01/25: Flexion extension x-ray reviewed, no instability, stable paresthesias in her upper extremities. 01/26. She is comfortable. Denies significant pain. No focal deficits Labs, Micro, & Vital Signs Labs, Micro, & Vital Signs Results Date Time Temp Pulse Resp B/P (MAP) Pulse Ox O2 Delivery O2 Flow Rate FiO2 01/25/18 16:01 62 18 161/70 (100) 94 01/25/18 16:01 62 01/25/18 16:00 63 20 94 01/25/18 16:00 63 01/25/18 13:01 62 29 139/67 (91) 96 01/25/18 13:01 62 01/25/18 12:01 64 01/25/18 12:01 64 33 136/84 (101) 97 01/25/18 12:00 64 27 97 01/25/18 12:00 64 01/25/18 11:42 63 01/25/18 11:42 63 21 133/62 (85) 97 01/25/18 10:23 72 24 164/74 (104) 97 18 10:23 72 18 10:20 83 22 184/87 (119) 99 18 10:20 83 18 08:01 87 18 08:01 87 33 165/70 (101) 100 18 08:00 86 01/25/18 08:00 96 01/25/18 08:00 86 26 98 01/25/18 06:00 70 01/25/18 05:53 16 01/25/18 04:00 78 01/25/18 04:00 98.8 78 26 173/73 (106) 96 01/25/18 02:00 76 01/25/18 00:00 99.0 79 28 145/98 (114) 96 01/25/18 00:00 79 01/24/18 22:00 83 01/24/18 20:00 99.0 82 26 153/65 (94) 96 01/24/18 20:00 82 01/24/18 18:00 86 Constitutional Vital Signs Date Time Temp Pulse Resp B/P (MAP) Pulse Ox O2 Delivery O2 Flow Rate FiO2 01/25/18 16:01 62 18 161/70 (100) 94 18 16:01 62 01/25/18 16:00 63 20 94 01/25/18 16:00 63 01/25/18 13:01 62 29 139/67 (91) 96 01/25/18 13:01 62 01/25/18 12:01 64 18 12:01 64 33 136/84 (101) 97 01/25/18 12:00 64 27 97 01/25/18 12:00 64 18 11:42 63 18 11:42 63 21 133/62 (85) 97 18 10:23 72 24 164/74 (104) 97 18 10:23 72 18 10:20 83 22 184/87 (119) 99 18 10:20 83 18 08:01 87 18 08:01 87 33 165/70 (101) 100 01/25/18 08:00 86 01/25/18 08:00 96 01/25/18 08:00 86 26 98 01/25/18 06:00 70 01/25/18 05:53 16 01/25/18 04:00 78 01/25/18 04:00 98.8 78 26 173/73 (106) 96 01/25/18 02:00 76 01/25/18 00:00 99.0 79 28 145/98 (114) 96 01/25/18 00:00 79 01/24/18 22:00 83 01/24/18 20:00 99.0 82 26 153/65 (94) 96 01/24/18 20:00 82 01/24/18 18:00 86 ROS - General Review of Systems Neurosurgery Physical Exam Physical Exam Ms. Sellers is alert, awake. Speech is fluent. Higher cognitive functions are normal. Cranial nerve examination demonstrates the pupils to be equal, round, and reactive to light. Facial motor are normal and symmetrical. Gross hearing is intact, bilaterally. Neck is immobilized by a [place] collar Muscle testing reveals normal bulk and tone. Moving all major muscle groups of upper and lower extremities well Medications Medications Current Medications Current Medications Medications (Trade) Dose Ordered Sig/Wendi Route PRN Reason Start Time Stop Time Status Last Admin Dose Admin Sodium Chloride 1,000 ml @ 84 mls/hr [id number] IV 01/23/18 23:35 01/25/18 05:24 Sodium Chloride (NS Flush) 2 ml UNSCH PRN IV FLUSH FLUSH AFTER USING IV ACCESS 01/23/18 23:45 01/24/18 08:52 Sodium Chloride (NS Flush) 2 ml BID IV FLUSH 01/24/18 09:00 01/25/18 09:49 Acetaminophen (Tylenol) 650 mg Q6H PRN PO FEVER >101F 01/23/18 23:45 Pantoprazole Sodium (Protonix Inj) 40 mg DAILY IV PUSH 01/24/18 09:00 01/25/18 09:49 Ondansetron HCl (Zofran Inj) 4 mg Q6H PRN IV PUSH NAUSEA OR VOMITING 01/23/18 23:45 Albuterol Sulfate (Albuterol Neb) 2.5 mg Q2HR NEB PRN INH SOB/WHEEZING 01/23/18 23:45 Heparin Sodium (Porcine) (Heparin Inj) 5,000 units Q12H SQ 01/24/18 00:00 Future Hold 01/24/18 01:35 Miscellaneous Information 1 Q361D XX 01/23/18 23:45 01/23/18 23:45 Chlorhexidine Gluconate (Chlorhexidine 2% Cloth) 3 pack Taper DAILY@04 TOP 01/24/18 04:00 01/20/19 03:59 01/25/18 04:00 Chlorhexidine Gluconate (Chlorhexidine 2% Cloth) 3 pack UNSCH PRN TOP HYGIENIC CARE 01/23/18 23:45 Senna/Docusate Sodium (Cande-Colace) 1 tab BID PO 01/24/18 09:00 01/25/18 09:49 Magnesium Hydroxide (Milk Of Magnesia Liq) 30 ml Q12H PRN PO Mild constipation 01/23/18 23:45 Sennosides (Senokot) 17.2 mg Q12H PRN PO Moderate constipation 01/23/18 23:45 Bisacodyl (Dulcolax Supp) 10 mg DAILY PRN RECTAL SEVERE CONSITIPATION 01/23/18 23:45 Lactulose (Lactulose Liq) 30 ml DAILY PRN PO SEVERE CONSITIPATION 01/23/18 23:45 Dexamethasone Sodium Phosphate (Decadron Inj) 4 mg Q6HR IV PUSH 01/24/18 00:00 01/25/18 11:58 Potassium Chloride 100 ml @ 50 mls/hr Q2H PRN IV For Potassium 2.8 - 3.2 mEq/L 01/23/18 23:45 Potassium Chloride 100 ml @ 50 mls/hr Q2H PRN IV For Potassium 2.8 - 3.2 mEq/L 01/23/18 23:45 Potassium Bicarb/ Potassium Chloride (K-Lyte Cl Eff) 50 meq UNSCH PRN PO For Potassium 3.3 - 3.5 mEq/L 01/23/18 23:45 Potassium Chloride 100 ml @ 25 mls/hr UNSCH PRN IV For Potassium 3.3 - 3.5 mEq/L 01/23/18 23:45 Potassium Chloride 100 ml @ 50 mls/hr Q2H PRN IV For Potassium 3.3 - 3.5 mEq/L 01/23/18 23:45 Magnesium Sulfate 4 gm/Sodium Chloride 100 ml @ 50 mls/hr UNSCH PRN IV For Magnesium 0.9 - 1.1 mg/dL 01/23/18 23:45 Magnesium Oxide (Mag-Ox) 800 mg UNSCH PRN PO For Magnesium 1.2 - 1.6 mg/dL 01/23/18 23:45 Magnesium Sulfate 2 gm/Sodium Chloride 100 ml @ 50 mls/hr UNSCH PRN IV For Magnesium 1.2 - 1.6 mg/dL 01/23/18 23:45 Potassium Phosphate (K-Phos) 2,000 mg Q4H PRN PO For Phosphorus < 2.5 mg/dL 01/23/18 23:45 Sodium Phosphate 30 mmol/Sodium Chloride 250 ml @ 42 mls/hr UNSCH PRN IV For Phosphorus < 2.5 mg/dL 01/23/18 23:45 Potassium Phosphate (K-Phos) 2,000 mg UNSCH PRN PO/TUBE SEE LABEL COMMENTS 01/23/18 23:45 Potassium Phosphate 30 mmol/ Sodium Chloride 260 ml @ 42 mls/hr UNSCH PRN IV SEE LABEL COMMENTS 01/23/18 23:45 Dextrose (D50w (Vial) Inj) 50 ml UNSCH PRN IV PUSH HYPOGLYCEMIA-SEE COMMENTS 01/23/18 23:45 Glucagon (Glucagon Inj) 1 mg UNSCH PRN OTHER HYPOGLYCEMIA-SEE COMMENTS 01/23/18 23:45 Insulin Human Regular (NovoLIN R SUPPLEMENTAL SCALE) 1 ACHS SLIDING SCALE SQ 01/24/18 08:00 01/24/18 20:38 Morphine Sulfate (Morphine Inj) 2 mg Q3H PRN IV PUSH Breakthrough pain 01/23/18 23:45 01/25/18 05:42 Anastrozole (Arimidex) 1 mg DAILY PO 01/24/18 09:00 01/25/18 09:49 Fluticasone Propionate (Flonase Nick Spr) 1 spray BID EACH NARE 01/24/18 09:00 01/25/18 10:51 Furosemide (Lasix) 60 mg DAILY PO 01/24/18 09:00 01/25/18 09:48 Metoprolol Tartrate (Lopressor) 25 mg DAILY PO 01/24/18 09:00 01/25/18 09:49 Oxybutynin Chloride (Ditropan) 5 mg Q12HR PO 01/24/18 09:00 01/25/18 09:49 Potassium Chloride (KCl) 20 meq DAILY PO 01/24/18 09:00 01/25/18 09:49 Triamcinolone Acetonide (Aristocort 0.1% Cream) 1 applic BID TOPICAL 01/24/18 09:00 01/25/18 10:52 Cholecalciferol (Vitamin D3) 2,000 units DAILY PO 01/24/18 09:00 01/25/18 09:49 Patient Own Medication PT OWN MED: Levomilnacipran ER (Fetz... DAILY PO 01/24/18 09:00 Future Hold Pramipexole Dihydrochloride (Mirapex) 1 mg HS PO 01/24/18 21:00 01/24/18 20:57 Albuterol/ Ipratropium (Duoneb Neb) 1 ampule Q4HR NEB NEB 01/24/18 00:00 01/24/18 12:25 Medical Decision Making Medical Decision Making MDM Remarks 67-year-old female with C6 vertebral body enhancement with a posterior mass with multiple areas of disc protrusion Flexion extension x-ray without instability, history of breast CA Plan Plan Plan Remarks continue nonsurgical management with [place] collar, Okay to remove cervical collar when in bed or with meals, Don collar when mobilizing out of bed Dr. Figueroa discussed with medical oncology and radiation oncology Labs, Micro, & Vital Signs Results Date Time Temp Pulse Resp B/P (MAP) Pulse Ox O2 Delivery O2 Flow Rate FiO2 01/26/18 12:01 72 24 181/80 (113) 96 01/26/18 12:01 72 01/26/18 12:00 72 01/26/18 12:00 72 26 97 01/26/18 08:01 70 169/78 (108) 100 01/26/18 08:00 66 01/26/18 08:00 68 100 01/26/18 04:00 65 01/26/18 04:00 65 17 150/67 (94) 95 01/26/18 00:00 97.8 63 18 146/65 (92) 94 01/26/18 00:00 63 01/25/18 23:18 17 01/25/18 20:26 97 01/25/18 20:00 74 18 153/97 (115) 97 01/25/18 20:00 74 01/27/18 07:00 Intake Total 150 ml Balance 150 ml Constitutional Vital Signs Date Time Temp Pulse Resp B/P (MAP) Pulse Ox O2 Delivery O2 Flow Rate FiO2 01/26/18 12:01 72 24 181/80 (113) 96 01/26/18 12:01 72 01/26/18 12:00 72 01/26/18 12:00 72 26 97 01/26/18 08:01 70 169/78 (108) 100 01/26/18 08:00 66 01/26/18 08:00 68 100 01/26/18 04:00 65 01/26/18 04:00 65 17 150/67 (94) 95 01/26/18 00:00 97.8 63 18 146/65 (92) 94 01/26/18 00:00 63 01/25/18 23:18 17 01/25/18 20:26 97 01/25/18 20:00 74 18 153/97 (115) 97 01/25/18 20:00 74 01/27/18 07:00 Intake Total 150 ml Balance 150 ml Physical Exam Ms. Sellers is alert, awake. Speech is fluent. Higher cognitive functions are normal. [place] collar in lace Cranial nerve examination demonstrates the pupils to be equal, round, and reactive to light. Facial motor are normal and symmetrical. Gross hearing is intact, bilaterally. Neck is immobilized by a [place] collar Muscle testing reveals normal bulk and tone. Moving all major muscle groups of upper and lower extremities well Sensory examination is intact to light touch and pin prick in both the upper and lower extremities. Deep tendon reflexes are symmetrical in both upper and lower extremities. There is a bilateral plantar flexion response. Cerebellar examination is unremarkable, without deficits. Lungs. Clear heart RRR Skin. warm and dry Medications Current Medications Current Medications Morphine Sulfate (Morphine Inj) 4 mg ONCE ONCE IV PUSH Last administered on at 19:36; Start 01/23/18 at 19:30; Stop 01/23/18 at 19:31; Status DC Ondansetron HCl (Zofran Inj) 4 mg ONCE ONCE IV PUSH Last administered on at 19:36; Start 01/23/18 at 19:30; Stop 01/23/18 at 19:31; Status DC Gadodiamide (Omniscan Pf Inj) 5 ml STK-MED ONCE IVCONTRAST Last administered on 01/23/18at 23:15; Start 01/23/18 at 17:09; Stop 01/23/18 at 23:11; Status DC Gadodiamide (Omniscan Pf Inj) 20 ml STK-MED ONCE IVCONTRAST Last administered on 01/23/18at 23:14; Start 01/23/18 at 17:09; Stop 01/23/18 at 23:11; Status DC Dexamethasone Sodium Phosphate (Decadron Inj) 6 mg ONCE ONCE IV PUSH Last administered on 01/23/18at 23:46; Start 01/23/18 at 23:30; Stop 01/23/18 at 23:31 ; Status DC Sodium Chloride 1,000 ml @ 84 mls/hr [id number] IV Last administered on at 23:13; Start 01/23/18 at 23:35; Stop 01/26/18 at 16:32; Status DC Sodium Chloride (NS Flush) 2 ml UNSCH PRN IV FLUSH FLUSH AFTER USING IV ACCESS Last administered on 01/24/18at 08:52; Start 01/23/18 at 23:45; Stop 01/26/18 at 16:32; Status DC Sodium Chloride (NS Flush) 2 ml BID IV FLUSH Last administered on 01/26/18at 07: 55; Start 01/24/18 at 09:00; Stop 01/26/18 at 16:32; Status DC Acetaminophen (Tylenol) 650 mg Q6H PRN PO FEVER >101F; Start 01/23/18 at 23:45 ; Stop 01/26/18 at 16:32; Status DC Pantoprazole Sodium (Protonix Inj) 40 mg DAILY IV PUSH Last administered on at 07:54; Start 01/24/18 at 09:00; Stop 01/26/18 at 16:32; Status DC Ondansetron HCl (Zofran Inj) 4 mg Q6H PRN IV PUSH NAUSEA OR VOMITING; Start at 23:45; Stop 01/26/18 at 16:33; Status DC Albuterol Sulfate (Albuterol Neb) 2.5 mg Q2HR NEB PRN INH SOB/WHEEZING; Start 01/23/18 at 23:45; Stop 01/26/18 at 16:33; Status DC Heparin Sodium (Porcine) (Heparin Inj) 5,000 units Q12H SQ Last administered on 01/24/18at 01:35; Start 01/24/18 at 00:00; Stop 01/26/18 at 16:33; Status DC Miscellaneous Information 1 Q361D XX Last administered on 01/23/18at 23:45; Start 01/23/18 at 23:45; Stop 01/26/18 at 16:33; Status DC Chlorhexidine Gluconate (Chlorhexidine 2% Cloth) 3 pack Taper DAILY@04 TOP Last administered on 01/26/18at 04:00; Start 01/24/18 at 04:00; Stop 01/26/18 at 16:33; Status DC Chlorhexidine Gluconate (Chlorhexidine 2% Cloth) 3 pack UNSCH PRN TOP HYGIENIC CARE; Start 01/23/18 at 23:45; Stop 01/26/18 at 16:33; Status DC Senna/Docusate Sodium (Cande-Colace) 1 tab BID PO Last administered on at 07:54; Start 01/24/18 at 09:00; Stop 01/26/18 at 16:33; Status DC Magnesium Hydroxide (Milk Of Magnesia Liq) 30 ml Q12H PRN PO Mild constipation ; Start 01/23/18 at 23:45; Stop 01/26/18 at 16:33; Status DC Sennosides (Senokot) 17.2 mg Q12H PRN PO Moderate constipation; Start 01/23/18 at 23:45; Stop 01/26/18 at 16:33; Status DC Bisacodyl (Dulcolax Supp) 10 mg DAILY PRN RECTAL SEVERE CONSITIPATION; Start at 23:45; Stop 01/26/18 at 16:33; Status DC Lactulose (Lactulose Liq) 30 ml DAILY PRN PO SEVERE CONSITIPATION; Start at 23:45; Stop 01/26/18 at 16:33; Status DC Dexamethasone Sodium Phosphate (Decadron Inj) 4 mg Q6HR IV PUSH Last administered on 01/26/18at 05:44; Start 01/24/18 at 00:00; Stop 01/26/18 at 09:30 ; Status DC Potassium Chloride 100 ml @ 50 mls/hr Q2H PRN IV For Potassium 2.8 - 3.2 mEq/L ; Start 01/23/18 at 23:45; Stop 01/26/18 at 16:33; Status DC Potassium Chloride 100 ml @ 50 mls/hr Q2H PRN IV For Potassium 2.8 - 3.2 mEq/L ; Start 01/23/18 at 23:45; Stop 01/26/18 at 16:33; Status DC Potassium Bicarb/ Potassium Chloride (K-Lyte Cl Eff) 50 meq UNSCH PRN PO For Potassium 3.3 - 3.5 mEq/L; Start 01/23/18 at 23:45; Stop 01/26/18 at 16:33; Status DC Potassium Chloride 100 ml @ 25 mls/hr UNSCH PRN IV For Potassium 3.3 - 3.5 mEq /L; Start 01/23/18 at 23:45; Stop 01/26/18 at 16:33; Status DC Potassium Chloride 100 ml @ 50 mls/hr Q2H PRN IV For Potassium 3.3 - 3.5 mEq/L ; Start 01/23/18 at 23:45; Stop 01/26/18 at 16:33; Status DC Magnesium Sulfate 4 gm/Sodium Chloride 100 ml @ 50 mls/hr UNSCH PRN IV For Magnesium 0.9 - 1.1 mg/dL; Start 01/23/18 at 23:45; Stop 01/26/18 at 16:33; Status DC Magnesium Oxide (Mag-Ox) 800 mg UNSCH PRN PO For Magnesium 1.2 - 1.6 mg/dL; Start 01/23/18 at 23:45; Stop 01/26/18 at 16:33; Status DC Magnesium Sulfate 2 gm/Sodium Chloride 100 ml @ 50 mls/hr UNSCH PRN IV For Magnesium 1.2 - 1.6 mg/dL; Start 01/23/18 at 23:45; Stop 01/26/18 at 16:33; Status DC Potassium Phosphate (K-Phos) 2,000 mg Q4H PRN PO For Phosphorus < 2.5 mg/dL; Start 01/23/18 at 23:45; Stop 01/26/18 at 16:33; Status DC Sodium Phosphate 30 mmol/Sodium Chloride 250 ml @ 42 mls/hr UNSCH PRN IV For Phosphorus < 2.5 mg/dL; Start 01/23/18 at 23:45; Stop 01/26/18 at 16:33; Status DC Potassium Phosphate (K-Phos) 2,000 mg UNSCH PRN PO/TUBE SEE LABEL COMMENTS; Start 01/23/18 at 23:45; Stop 01/26/18 at 16:33; Status DC Potassium Phosphate 30 mmol/ Sodium Chloride 260 ml @ 42 mls/hr UNSCH PRN IV SEE LABEL COMMENTS; Start 01/23/18 at 23:45; Stop 01/26/18 at 16:33; Status DC Dextrose (D50w (Vial) Inj) 50 ml UNSCH PRN IV PUSH HYPOGLYCEMIA-SEE COMMENTS; Start 01/23/18 at 23:45; Stop 01/26/18 at 16:33; Status DC Glucagon (Glucagon Inj) 1 mg UNSCH PRN OTHER HYPOGLYCEMIA-SEE COMMENTS; Start 01/23/18 at 23:45; Stop 01/26/18 at 16:33; Status DC Insulin Human Regular (NovoLIN R SUPPLEMENTAL SCALE) 1 ACHS SLIDING SCALE SQ Last administered on 01/24/18at 20:38; Start 01/24/18 at 08:00; Stop 01/26/18 at 16:33; Status DC Morphine Sulfate (Morphine Inj) 2 mg Q3H PRN IV PUSH Breakthrough pain Last administered on 01/25/18at 23:13; Start 01/23/18 at 23:45; Stop 01/26/18 at 16:33 ; Status DC Anastrozole (Arimidex) 1 mg DAILY PO Last administered on 01/26/18at 07:54; Start 01/24/18 at 09:00; Stop 01/26/18 at 16:33; Status DC Fluticasone Propionate (Flonase Nick Spr) 1 spray BID EACH NARE Last administered on 01/26/18at 07:53; Start 01/24/18 at 09:00; Stop 01/26/18 at 16:33 ; Status DC Furosemide (Lasix) 60 mg DAILY PO Last administered on 01/26/18at 07:54; Start 01/24/18 at 09:00; Stop 01/26/18 at 16:33; Status DC Metoprolol Tartrate (Lopressor) 25 mg DAILY PO Last administered on 01/26/18at 07:54; Start 01/24/18 at 09:00; Stop 01/26/18 at 16:33; Status DC Oxybutynin Chloride (Ditropan) 5 mg Q12HR PO Last administered on 01/26/18at 07: 54; Start 01/24/18 at 09:00; Stop 01/26/18 at 16:33; Status DC Potassium Chloride (KCl) 20 meq DAILY PO Last administered on 01/26/18at 07:55; Start 01/24/18 at 09:00; Stop 01/26/18 at 16:33; Status DC Triamcinolone Acetonide (Aristocort 0.1% Cream) 1 applic BID TOPICAL Last administered on 01/26/18at 07:54; Start 01/24/18 at 09:00; Stop 01/26/18 at 16:33 ; Status DC Cholecalciferol (Vitamin D3) 2,000 units DAILY PO Last administered on at 07:54; Start 01/24/18 at 09:00; Stop 01/26/18 at 16:33; Status DC Patient Own Medication PT OWN MED: Levomilnacipran ER (Fetz... DAILY PO ; Start 01/24/18 at 09:00; Stop 01/26/18 at 16:33; Status DC Pramipexole Dihydrochloride (Mirapex) 1 mg HS PO Last administered on at 20:05; Start 01/24/18 at 21:00; Stop 01/26/18 at 16:33; Status DC Albuterol/ Ipratropium (Duoneb Neb) 1 ampule Q4HR NEB NEB Last administered on 01/24/18at 12:25; Start 01/24/18 at 00:00; Stop 01/26/18 at 16:33; Status DC Gadodiamide (Omniscan Pf Inj) 24 ml STK-MED ONCE IVCONTRAST Last administered on 01/24/18at 17:00; Start 01/24/18 at 17:00; Stop 01/24/18 at 17:01; Status DC Zoledronic Acid 4 mg/Sodium Chloride 150 ml @ 150 mls/hr ONCE ONCE IV Last administered on 01/26/18at 10:36; Start 01/26/18 at 11:00; Stop 01/26/18 at 11:59 ; Status DC Dexamethasone (Decadron) 1 mg Q12HR PO ; Start 01/26/18 at 21:00; Stop 01/26/18 at 21:00; Status DC Attending Statement 67-year-old female with C6 vertebral body enhancement with a posterior mass with multiple areas of disc protrusion Flexion extension x-ray without instability, history of breast CA continue nonsurgical management with support with [place] collar, Okay to remove cervical collar when in bed or with meals, Stable for discharge per neurosurgical standpoint Alec Figueroa MD Jan 26, 2018 18:15
[2018-01-26] MEDS ORDERED: DEXAMETHASONE 0.5 MG TAB PO SCH (21:00)
== END 2018-01-26 16:15 | disposition home or self-care (01) | DRG 543 ==
LOC: NEPC 17:08 → NEDA 23:45 → HIME 01-24 00:35
PROVIDERS: ADMIT Hospitalist; ATTEND Hospitalist
DX: C79.51 Secondary malignant neoplasm of bone (principal); Z68.41 Body mass index [BMI] 40.0-44.9, adult; E66.9 Obesity, unspecified; I10 Essential (primary) hypertension; Z85.3 Personal history of malignant neoplasm of breast; Z17.0 Estrogen receptor positive status [ER+]; F17.210 Nicotine dependence, cigarettes, uncomplicated; L40.9 Psoriasis, unspecified; J98.4 Other disorders of lung; K21.9 Gastro-esophageal reflux disease without esophagitis; M81.0 Age-related osteoporosis without current pathological fracture; M19.90 Unspecified osteoarthritis, unspecified site; E78.5 Hyperlipidemia, unspecified; E55.9 Vitamin D deficiency, unspecified; M25.552 Pain in left hip; R74.8 Abnormal levels of other serum enzymes; R73.9 Hyperglycemia, unspecified; Z96.653 Presence of artificial knee joint, bilateral
CPT/HCPCS: 71045; 72040; 72156; 72157; 80053; 82948; 83605; 83735; 84100; 84443; 85025; 85610; 85730; 87641; 94150; 94640; 94664; 96374; 96375; A9579; C9113; J1100; J1644; J2270; J2405; J3489; J7030; J7050; L0150; L0172

== ENCOUNTER 2018-03-10 12:53 | Emergency (ER) | payer MEDICARE ==
[~2018-03-10] VITALS: Ht 175.3 cm; Wt 124.0 kg
[~2018-03-10 12:53] MED LIST changes: +DEXA4TAB PO; -METH4PAK PO
[2018-03-10 12:55] VITALS: BP 230/96; PULSE 85; RESP 24; TEMP 98.2; O2SAT 97
[2018-03-10 13:40] LABS: AUTOMATED NEUTROPHIL # 2.9 TH/MM3 (1.8-7.7); BASOPHIL % 0.5 % (0.0-2.0); EOSINOPHIL % 0.1 % (0.0-4.0); HEMATOCRIT 36.2 % (35.0-46.0); HEMOGLOBIN 12.1 GM/DL (11.6-15.3); LYMPH % 17.1 % (9.0-44.0); LYMPHOCYTE # 0.7 TH/MM3 (1.0-4.8); MEAN CELL VOLUME 85.2 FL (80.0-100.0); MEAN CORPUSCULAR HEMOGLOBIN 28.5 PG (27.0-34.0); MEAN CORPUSCULAR HGB CONC 33.5 % (32.0-36.0); MEAN PLATELET VOLUME 7.7 FL (7.0-11.0); MONO % 9.5 % (0.0-8.0); MONOCYTE # 0.4 TH/MM3 (0-0.9); NEUT % 72.8 % (16.0-70.0); PLATELET COUNT 350 TH/MM3 (150-450); RED BLOOD COUNT 4.25 MIL/MM3 (4.00-5.30); RED CELL DISTRIBUTION WIDTH 23.7 % (11.6-17.2)
[2018-03-10 13:50] LABS: PROTHROMBIN TIME - PATIENT 10.3 SEC (9.8-11.6)
[2018-03-10] MEDS ORDERED: GADODIAMIDE PF 287 MG/ML 20 ML VIAL (for RAD MRI) IVCONTRAST ONE (14:31)
--- NOTE | 2018-03-10 15:23 | RADRPT ---
EXAM DATE: 03/10/2018 2:55 PM EDT AGE/SEX: 68 years / Female INDICATIONS: Unable to lift left arm. CLINICAL DATA: This is the patient's initial encounter. Patient reports that signs and symptoms have been present for 1 day and indicates a pain score of 0/10. MEDICAL/SURGICAL HISTORY: . Carcinoma, left breast. Metastatic carcinoma, posterior neck. Mast ectomy, left. [place] [facility] [place]. . FINDINGS: A single AP view of the chest demonstrates the lungs to be symmetrically aerated without evidence of mass, infiltrate or effusion. The cardiomediastinal contours are unremarkable. Osseous structures a re intact. CONCLUSION: No evidence of acute cardiopulmonary disease. Electronically signed by: Greg Delacruz MD 03/10/2018 3:22 PM EDT
--- NOTE | 2018-03-10 15:39 | RADRPT ---
EXAM DATE: 03/10/2018 2:42 PM EDT AGE/SEX: 68 years / Female INDICATIONS: . Unable to lift right arm. CLINICAL DATA: This is the patient's initial encounter. Patient reports that signs and symptoms have been present for 1 day and indicates a pain score of 0/10. MEDICAL/SURGICAL HISTORY: Carcinoma, breast. Hypertension. Arthritis. Mastectomy, left. Tota l knee replacement, left. Total knee replacement, right. COMPARISON: [facility] – [place], [place] CERVICAL SPINE W & W/O CONTRAST, 01/23/2018. . TECHNIQUE: Multiplanar, multisequence MRI examination of the cervical spine was performed without an d with 20cc ml Omniscan (gadodiamide) contrast as a single exam dose. FINDINGS: An enhancing mass is again seen involving the posterior elements of C5 and C6 and also the posterior half of the C6 vertebral body. There is associated mildly masslike, mostly epidural enhancement in th e adjacent soft tissues, including the bilateral foramina at C5/C6, right worse than left. There is a ssociated right greater than left foraminal stenosis at C5/C6 but this is not new and not considerabl y changed. However, increased epidural enhancement and right greater than left foraminal stenosis not ed at C4/C5. Multilevel degenerative disc disease with small, broad chronic disc protrusions at C2/C3 through C4/C 5 again noted and not significantly changed. No associated high-grade foraminal or spinal stenosis. Cervical cord has normal signal and morphology. There is mild spinal stenosis at C5/C6 without cord c ompression. CONCLUSION: 1. Osseous tumor with localized epidural enhancement at C5 and C6 again noted. There does appear to be increased epidural enhancement and right greater than left foraminal stenosis at C4/C5 level. The right greater than left foraminal stenosis and mild spinal stenosis at C5/C6 is similar to before. 2. Degenerative changes at other levels without high-grade foraminal or spinal stenosis and also not significantly changed. Electronically signed by: Greg Delacruz MD 03/10/2018 3:38 PM EDT
[2018-03-10 15:43] LABS: BICARBONATE 20.6 MEQ/L (21.0-32.0); CALCIUM 7.6 MG/DL (8.5-10.1); CREATININE 0.87 MG/DL (0.50-1.00); MAGNESIUM 2.5 MG/DL (1.5-2.5)
--- NOTE | 2018-03-10 15:49 | PD ---
HPI Chief Complaint: Medical Clearance Time Seen by Provider: 13:09 Travel History International Travel<30 days: No Contact w/Intl Traveler<30days: No Traveled to known affect area: No History of Present Illness HPI 68-year-old female that presents to the ED for evaluation of right arm weakness that started yesterday. Per patient started yesterday. Per patient she cannot lift her arm at the shoulder level at all. Per patient is been progressively worse since yesterday. 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 She was actually evaluated by me in January and had an MRI and admission with Dr. Figueroa was consulted for possible surgical treatment as she did had a metastatic lesion that could compromise the spine. Patient does have a history of breast cancer. Patient denies any injuries or trauma. Per patient she is supposed to use a cervical collar per Dr. Figueroa recommendation but only worsened on occasion. She is also questioning whether she is supposed to be on steroids as none of her doctors have been able to keep her on the steroids and she has not taken them for a couple of weeks. She has been having chemo and radiation for the lesion. She last saw her chemo last week and she had radiation as well. She has been doing well until yesterday she started having weakness on her right arm. She denies any other symptoms. She does have some chronic left-sided numbness and tingling but she has never had any issues with the right arm. She states that she is able to health services coordinator and hold to things but if she lets go her arm completely let us go. She feels like she cannot lift her arm at the shoulder level at all. She denies any significant numbness or tingling. Denies any pain. No bowel movement or urinary issues. No leg numbness or tingling. PFSH Past Medical History Arthritis: Yes Depression: Yes Cancer: Yes (breast) Cardiovascular Problems: Yes High Cholesterol: Yes Congestive Heart Failure: Yes COPD: Yes Diminished Hearing: No GERD: Yes Hypertension: Yes Respiratory: Yes Radiation Therapy: Yes ?: Not Past Surgical History Joint Replacement: Yes (bilat knee) Mastectomy: Yes (left ) Social History Alcohol Use: No Tobacco Use: Yes (5-6 day) Substance Use: No Allergies-Medications (Allergen,Severity, Reaction): Coded Allergies: hydromorphone (Verified Allergy, Mild, Hallucinations, 03/10/18) Reported Meds & Prescriptions Reported Meds & Active Scripts Active Dexamethasone 4 Mg Tab 4 Mg PO BID Anastrozole 1 Mg Tab 1 Mg PO DAILY Fetzima ER (Levomilnacipran ER) 120 Mg Caper 120 Mg PO DAILY Pramipexole (Pramipexole Dihydrochloride) 0.5 Mg Tab 1 Mg PO HS Ditropan (Oxybutynin Chloride) 5 Mg Tab 5 Mg PO Q12HR Ativan (Lorazepam) 1 Mg Tab 1 Mg PO HS PRN Xenical (Orlistat) 120 Mg Cap 1 Cap PO TIDAC Furosemide 40 Mg Tab 60 Mg PO DAILY take one and a half tabs daily Lisinopril 5 Mg Tab 5 Mg PO DAILY Omeprazole 40 Mg Cap 40 Mg PO DAILY Fluticasone Nasal [place] 50 Mcg/Act Naspr 50 Mcg EACH NARE BID 50 mcg/spray Triamcinolone Topical (Triamcinolone Acetonide) 0.1% Cream 1 Applic TOPICAL BID Pravastatin 40 Mg Tab 40 Mg PO DAILY Metoprolol Tartrate 25 Mg Tab 25 Mg PO DAILY K-Tab (Potassium Chloride) 20 Meq Tab 20 Meq PO DAILY Inspirease Drug Delivery (Spacer/Device For Mdi) 1 Ea Mis 1 Ea .ROUTE DIRECTED Nebulizer 1 Mis Mis 1 Ea .ROUTE DIRECTED Duoneb (Ipratropium-Albuterol Neb) 0.5-2.5 Mg/3 Ml Neb 1 Nebule INH Q4HR NEB Ventolin Hfa 18 GM Inh (Albuterol Sulfate) 90 Mcg/Act Aer 2 Puff INH Q6H PRN Reported Vitamin D (Cholecalciferol) 2,000 Unit Cap 1 Cap PO DAILY Aspirin 81 Mg Chew 81 CHEW DAILY Review of Systems Except as stated in HPI: all other systems reviewed are Neg Physical Exam Narrative GENERAL: SKIN: Warm and dry. HEAD: Atraumatic. Normocephalic. EYES: Pupils equal and round 4 mm reactive to light and accommodation. No scleral icterus. No injection or drainage. ENT: No nasal bleeding or discharge. Mucous membranes pink and moist. Tongue is midline. No uvula deviation. NECK: Trachea midline. No JVD. CARDIOVASCULAR: Regular rate and rhythm. RESPIRATORY: No accessory muscle use. Clear to auscultation. Breath sounds equal bilaterally. GASTROINTESTINAL: Abdomen soft, non-tender, nondistended. Hepatic and splenic margins not palpable. MUSCULOSKELETAL: Extremities without clubbing, cyanosis, or edema. No obvious deformities. Full range of motion of the upper and lower extremities with exception of the right arm. Patient cannot lift the arm past 25. Able to move the elbow fully with definitely weakness. Patient does have 3 out of 5 strength on the right upper extremity compared to the left. Patient does have 5 out of 5 health services coordinator strength. Some wrist drop noted but able to move it. Good sensation noted. No lumbar, thoracic, cervical spine tenderness to palpation. NEUROLOGICAL: Awake and alert. No obvious cranial nerve deficits. Motor grossly within normal limits. Five out of 5 muscle strength in the arms and legs. Normal speech. PSYCHIATRIC: Appropriate mood and affect; insight and judgment normal. Data Data Last Documented VS Vital Signs Date Time Temp Pulse Resp B/P (MAP) Pulse Ox O2 Delivery O2 Flow Rate FiO2 03/10/18 17:26 109 16 184/77 (112) 100 Room Air 03/10/18 12:55 98.2 Orders Orders Complete Blood Count With Diff (03/10/18 13:12) Basic Metabolic Panel (Bmp) (03/10/18 13:12) Prothrombin Time / Inr (Pt) (03/10/18 13:12) Act Partial Throm Time (Ptt) (03/10/18 13:12) Magnesium (Mg) (03/10/18 13:12) Iv Access Insert/Monitor (03/10/18 13:12) Mri C Spine W&W/O Contrast (03/10/18 ) Mri T Spine W & W/O Contrast (03/10/18 ) Ct Brain W/O Iv Contrast(Rout) (03/10/18 ) Chest, Single Ap (03/10/18 ) Apply Cervical Collar (03/10/18 13:46) Gadodiamide Pf Inj (Omniscan Pf Inj) (03/10/18 14:31) Radiology Film Requests (03/10/18 ) Dexamethasone Inj (Decadron Inj) (03/10/18 17:45) Radiology Film Requests (03/10/18 ) Metoprolol Tartrate Inj (Lopressor Inj) (03/10/18 17:56) D5-1/2 Ns + Kcl 20 Meq Inj (D5-1/2 Ns + (03/10/18 18:00) Labs Laboratory Tests Test 03/10/18 13:21 03/10/18 14:55 White Blood Count 4.0 TH/MM3 Red Blood Count 4.25 MIL/MM3 Hemoglobin 12.1 GM/DL Hematocrit 36.2 % Mean Corpuscular Volume 85.2 FL Mean Corpuscular Hemoglobin 28.5 PG Mean Corpuscular Hemoglobin Concent 33.5 % Red Cell Distribution Width 23.7 % Platelet Count 350 TH/MM3 Mean Platelet Volume 7.7 FL Neutrophils (%) (Auto) 72.8 % Lymphocytes (%) (Auto) 17.1 % Monocytes (%) (Auto) 9.5 % Eosinophils (%) (Auto) 0.1 % Basophils (%) (Auto) 0.5 % Neutrophils # (Auto) 2.9 TH/MM3 Lymphocytes # (Auto) 0.7 TH/MM3 Monocytes # (Auto) 0.4 TH/MM3 Eosinophils # (Auto) 0.0 TH/MM3 Basophils # (Auto) 0.0 TH/MM3 CBC Comment AUTO DIFF Differential Comment AUTO DIFF CONFIRMED Platelet Estimate NORMAL Platelet Morphology Comment NORMAL Spherocytes Ovalocytes Prothrombin Time 10.3 SEC Prothromb Time International Ratio 1.0 RATIO Activated Partial Thromboplast Time 22.3 SEC Blood Urea Nitrogen 22 MG/DL Creatinine 0.87 MG/DL Random Glucose 113 MG/DL Calcium Level 7.6 MG/DL Magnesium Level 2.5 MG/DL Sodium Level 142 MEQ/L Potassium Level 4.0 MEQ/L Chloride Level 110 MEQ/L Carbon Dioxide Level 20.6 MEQ/L Anion Gap 11 MEQ/L Estimat Glomerular Filtration Rate 65 ML/MIN MDM Medical Decision Making Medical Screen Exam Complete: Yes Emergency Medical Condition: Yes Medical Record Reviewed: Yes Interpretation(s) Last Impressions Thoracic Spine MRI 03/10/18 0000 Signed Impressions: CONCLUSION: 1. Multifocal bony metastatic disease of the thoracic spine again noted. There is now some localized epidural involvement related to the lesion in the right side of the T3 vertebral body and the right pedicle. This appears to affect the exiting T2 nerve root more than the T3 nerve root. 2. The other lesions are not significantly changed or associated with signific ant epidural involvement. Head CT 03/10/18 0000 Signed Impressions: CONCLUSION: 1. Mild periventricular and subcortical white matter small vessel ischemic [place] nges bilaterally. 2. No acute hemorrhage, acute infarct, mass effect or extra-axial fluid collec tions. Chest X-Ray 03/10/18 0000 Signed Impressions: CONCLUSION: No evidence of acute cardiopulmonary disease. Cervical Spine MRI 03/10/18 0000 Signed Impressions: CONCLUSION: 1. Osseous tumor with localized epidural enhancement at C5 and C6 again noted. There does appear to be increased epidural enhancement and right greater than left foraminal stenosis at C4/C5 level. The right greater than left foraminal s tenosis and mild spinal stenosis at C5/C6 is similar to before. 2. Degenerative changes at other levels without high-grade foraminal or spinal stenosis and also not significantly changed. CBC & BMP Diagram 03/10/18 13:21 03/10/18 14:55 Calcium Level 7.6 L, Magnesium Level 2.5 Differential Diagnosis Cervical lesion versus cancer versus metastatic lesion versus fracture versus radiculopathy versus neuropathy Narrative Course 68-year-old female that presents to the ED for evaluation of right arm numbness and weakness. Patient was properly examined and was found to have signs and symptoms concerning for worsening cervical lesion. Labs and imaging order. Labs and imaging showed significant worsening of the lesion on the C5 C 6 with some stenosis of the nerve. Case was discussed with my attending as well as with neurosurgeon almond grinder. Dr. Siegel was contacted over the phone and he reviewed the records himself with the radiologist and recommends that if patient was to be aggressive one surgery to help alleviate her symptoms she will have to be transferred to higher acuity facility for surgery as he does not do the procedure to she will require. Otherwise the patient does not want to pursue her surgery patient will have to follow with oncologist for further palliative treatment. This was discussed with my attending Dr. Mcpherson who took over the case and had a long lengthy discussion between herself and the patient as well as our interventionist. They ultimately decided to transfer the patient to a different facility. Please refer to her note. Nicholas Godfrey Mar 10, 2018 15:49
--- NOTE | 2018-03-10 15:58 | RADRPT ---
EXAM DATE: 03/10/2018 2:40 PM EDT AGE/SEX: 68 years / Female INDICATIONS: . Unable to lift right arm. CLINICAL DATA: This is the patient's initial encounter. Patient reports that signs and symptoms have been present for 1 day and indicates a pain score of 0/10. MEDICAL/SURGICAL HISTORY: Carcinoma, breast. Hypertension. Arthritis. Mastectomy, left. Tota l knee replacement, left. Total knee replacement, right. COMPARISON: [facility] [place], MRI THORACIC SPINE W & W/O CONTRAST, 01/24/2018. . TECHNIQUE: Multiplanar, multisequence MRI of the thoracic spine was performed without and with 20cc ml Omniscan (gadodiamide) contrast as a single exam dose. FINDINGS: Scattered metastatic lesions are again seen of the thoracic spine and not significantly changed in e interim. These are approximately 19 mm right pedicle and posterior vertebral body of T3, 8 mm of th e T6 vertebral body, 4 mm of the T7 vertebral body, 12 mm right pedicle and posterior vertebral body of T9 and several lesions up to 6 mm in size of the T11 vertebral body. 6 mm lesion posterior spinous process of T10. There are numerous sub-5 mm scattered vertebral body lesions and posterior element l esions. Some localized epidural enhancement has developed related to the T3 lesion and with mild foraminal st enosis, mostly at T2/T3. No other epidural or other significant soft tissue involvement demonstrated. There is no other significant tumor-associated foraminal or spinal stenosis demonstrated. Thoracic vertebral bodies have normal height. There is mild, chronic loss of height of L1 again noted . No subluxations. All of the thoracic intervertebral discs are desiccated and have at least mild los s of height. There is degenerative appearing exaggeration of the thoracic kyphosis. No significant de generative related foraminal or spinal stenosis has developed. CONCLUSION: 1. Multifocal bony metastatic disease of the thoracic spine again noted. There is now some localized epidural involvement related to the lesion in the right side of the T3 vertebral body and the right pedicle. This appears to affect the exiting T2 nerve root more than the T3 nerve root. 2. The other lesions are not significantly changed or associated with significant epidural involveme nt. Electronically signed by: Greg Delacruz MD 03/10/2018 3:56 PM EDT
--- NOTE | 2018-03-10 16:44 | RADRPT ---
EXAM DATE: 03/10/2018 4:37 PM EDT AGE/SEX: 68 years / Female INDICATIONS: Numbness and weakness to left arm. CLINICAL DATA: This is the patient's initial encounter. Patient reports that signs and symptoms have been present for 1 day and indicates a pain score of 0/10. MEDICAL/SURGICAL HISTORY: Carcinoma, breast. Cardiovascular disease. Congestive heart failure. H ypertension, GERD. Mastectomy, left. Radiation therapy to cervical/upper thoracic spine. RADIATION DOSE: 39.18 CTDI (mGy) COMPARISON: . TECHNIQUE: CT of the head without contrast. Using automated exposure control and adjustment of the mA and/or kV according to patient size, radiation dose was kept as low as reasonably achievable to ob tain optimal diagnostic quality images. FINDINGS: Cerebrum: The ventricles are normal for age. No evidence of midline shift, mass lesion, hemorrhage or acute infarction. No extraaxial fluid collections are seen. Mild periventricular and subcortical white matter small vessel ischemic changes are noted bilaterally. Posterior Fossa: The cerebellum and brainstem are intact. The 4th ventricle is midline. The cerebe llopontine angle is unremarkable. Extracranial: The visualized portion of the orbits is intact. Skull: The calvaria is intact. No evidence of skull fracture. CONCLUSION: 1. Mild periventricular and subcortical white matter small vessel ischemic changes bilaterally. 2. No acute hemorrhage, acute infarct, mass effect or extra-axial fluid collections. Electronically signed by: Charlie Velasco MD 03/10/2018 4:43 PM EDT
--- NOTE | 2018-03-10 17:02 | PD ---
Physical Exam Narrative I, Dr. Mcpherson, have reviewed the advance practice practitioner's documentation and am in agreement, met with the patient face to face, made the diagnosis, and the medical decision making was done by me. *My assessment and Findings: Cervical tumor 68yo F with HTN, breast cancer with mets to cervical spine here with sudden onset right arm weakness last night. RUE muscle strength is 3/5. Sensation equal in all extremities. Pt placed in cervical spine collar. Pt follows with oncologist Dr. Zuñiga and has finished radiation therapy. She is also on chemotherapy. MRI cervical spine showed osseous tumor with localized epidural enhancement at C5 and C6 that is again noted. There does appear to be increased epidural enhancement with right greater than left foraminal stenosis at C4-5. MRI thoracic spine showed multifocal bony metastatic disease of the thoracic spine again noted. Three is now some localized epidural involvement related to the lesion in the right side of the T3 vertebral body and right pedicle. This appears to affect the exiting T2 never root more than the T3 nerve root. The other lesions are not significantly changed or associated with significant epidural involvement. Neurosurgery Dr. Siegel has been consulted and said that surgical intervention can be used to resolve symptoms but that he does not perform this surgery and recommends transfer to a higher level of care. Pt said she has established relationship with Dr. Figueroa and wants Dr. Figueroa to be involved in her care instead of transferring. Said she is interested in surgical options and will wait for Dr. Figueroa. I tried to call Dr. Figueroa but the call center will not call him since he is not consumer banker today. I discussed with Dr. Montiel from ICU and he recommends transfer. After further discussing with patient, she agrees to being transfer to a facility where she can receive the neurosurgical intervention for the epidural impingement from the tumor. Labs reviewed, no leukocytosis. H/H normal. BUN mildly elevated at 22, pt given maintenance IVF. BP was elevated and pt has not taken her blood pressure medication today. Pt takes metoprolol and lisinopril so will give lopressor 2.5mg IV. Repeat blood pressure improved to 148/65 and HR improved to 79bpm. Discussed with neurosurgeon Dr. Harris from [facility] and he recommends decadron 3-4mg and admit to ICU. Pt was given dexamethasone 4mg IV. I discussed case with Dr. Nasser from neuro ICU and he accepted the patient. Will transport emergently by ground. Data Data Last Documented VS Vital Signs Date Time Temp Pulse Resp B/P (MAP) Pulse Ox O2 Delivery O2 Flow Rate FiO2 03/10/18 19:14 03/10/18 18:14 79 03/10/18 17:26 16 100 Room Air 03/10/18 12:55 98.2 Orders Orders Complete Blood Count With Diff (03/10/18 13:12) Basic Metabolic Panel (Bmp) (03/10/18 13:12) Prothrombin Time / Inr (Pt) (03/10/18 13:12) Act Partial Throm Time (Ptt) (03/10/18 13:12) Magnesium (Mg) (03/10/18 13:12) Iv Access Insert/Monitor (03/10/18 13:12) Mri C Spine W&W/O Contrast (03/10/18 ) Mri T Spine W & W/O Contrast (03/10/18 ) Ct Brain W/O Iv Contrast(Rout) (03/10/18 ) Chest, Single Ap (03/10/18 ) Apply Cervical Collar (03/10/18 13:46) Gadodiamide Pf Inj (Omniscan Pf Inj) (03/10/18 14:31) Radiology Film Requests (03/10/18 ) Dexamethasone Inj (Decadron Inj) (03/10/18 17:45) Metoprolol Tartrate Inj (Lopressor Inj) (03/10/18 17:56) D5-1/2 Ns + Kcl 20 Meq Inj (D5-1/2 Ns + (03/10/18 18:00) Ed Discharge Order (03/10/18 18:14) Labs Laboratory Tests Test 03/10/18 13:21 03/10/18 14:55 White Blood Count 4.0 TH/MM3 Red Blood Count 4.25 MIL/MM3 Hemoglobin 12.1 GM/DL Hematocrit 36.2 % Mean Corpuscular Volume 85.2 FL Mean Corpuscular Hemoglobin 28.5 PG Mean Corpuscular Hemoglobin Concent 33.5 % Red Cell Distribution Width 23.7 % Platelet Count 350 TH/MM3 Mean Platelet Volume 7.7 FL Neutrophils (%) (Auto) 72.8 % Lymphocytes (%) (Auto) 17.1 % Monocytes (%) (Auto) 9.5 % Eosinophils (%) (Auto) 0.1 % Basophils (%) (Auto) 0.5 % Neutrophils # (Auto) 2.9 TH/MM3 Lymphocytes # (Auto) 0.7 TH/MM3 Monocytes # (Auto) 0.4 TH/MM3 Eosinophils # (Auto) 0.0 TH/MM3 Basophils # (Auto) 0.0 TH/MM3 CBC Comment AUTO DIFF Differential Comment AUTO DIFF CONFIRMED Platelet Estimate NORMAL Platelet Morphology Comment NORMAL Spherocytes Ovalocytes Prothrombin Time 10.3 SEC Prothromb Time International Ratio 1.0 RATIO Activated Partial Thromboplast Time 22.3 SEC Blood Urea Nitrogen 22 MG/DL Creatinine 0.87 MG/DL Random Glucose 113 MG/DL Calcium Level 7.6 MG/DL Magnesium Level 2.5 MG/DL Sodium Level 142 MEQ/L Potassium Level 4.0 MEQ/L Chloride Level 110 MEQ/L Carbon Dioxide Level 20.6 MEQ/L Anion Gap 11 MEQ/L Estimat Glomerular Filtration Rate 65 ML/MIN MDM Supervised Visit with JOE: Yes Critical Care Narrative Aggregate critical care time was 50 minutes. Time to perform other separately billable procedures was not included in the critical care time. My time did not include minutes spent treating any other patients simultaneously or on activities that did not directly contribute to the patient's treatment. The services I provided to this patient were to treat and/or prevent clinically significant deterioration that could result in: cardiovascular collapse or . I provided critical care services requiring my management, as noted below: Chart data review, documentation time, medication orders and management, vital sign assessments/reviewing monitor data, ordering and reviewing lab tests, ordering and interpreting/reviewing x-rays and diagnostic studies, care of the patient and discussion of the patient with the admitting physicians. Diagnosis Primary Impression: Cervical spinal mass Admitting Information Admitting Physician Requests: Admit Patient Instructions: General Instructions Departure Forms: Tests/Procedures Additional Instruction: Patient is being transfer to [facility] accepted by neuro ICU physician Dr. San. Med/Other Pt SpecificInfo: No Change to Meds Disposition: 70 TRANSFER TO OTHER FACILITY Condition: Stable Lilian Mcpherson DO Mar 10, 2018 17:02
[2018-03-10 17:26] VITALS: BP 184/77; PULSE 109; RESP 16; O2SAT 100
[2018-03-10] MEDS ORDERED: DEXAMETHASONE SOD PHOS 4 MG/ML VIAL IV PUSH ONE (17:45)
[2018-03-10] MEDS ORDERED: METOPROLOL TARTRATE 5 MG/5 ML VIAL IV PUSH STA (17:56)
[2018-03-10] MEDS ORDERED: D5-1/2 NS + KCL 20 MEQ INJ 1,000 ML IV SCH (18:00)
[2018-03-10 18:14] VITALS: BP 148/65; PULSE 79
== END 2018-03-10 19:16 | disposition short-term general hospital (02) ==
LOC: NEPC 12:53
DX: C79.51 Secondary malignant neoplasm of bone (principal); C50.919 Malignant neoplasm of unspecified site of unspecified female breast; E78.00 Pure hypercholesterolemia, unspecified; I11.0 Hypertensive heart disease with heart failure; I50.9 Heart failure, unspecified; Z72.0 Tobacco use; Z79.899 Other long term (current) drug therapy; Z90.12 Acquired absence of left breast and nipple
CPT/HCPCS: 70450; 71045; 72156; 72157; 80048; 83735; 85025; 85610; 85730; 96374; 96375; 99291; A9579; J1100; J3480; L0150

== ENCOUNTER 2018-03-21 07:38 | Day surgery (SDC) | payer MEDICARE ==
[~2018-03-21] VITALS: Ht 175.3 cm; Wt 123.6 kg
[2018-03-21 07:55] VITALS: BP 152/81; PULSE 92; RESP 18; TEMP 98.4; O2SAT 100
[2018-03-21] MEDS ORDERED: CHLORHEXIDINE GLUCONATE 2 % 1 PACK (2 CLOTHS) TOPICAL SCH (08:00)
[2018-03-21] MEDS ORDERED: ceFAZolin 2 GM PREMIX 50 ML - implanted port/tunneled catheter insertion IV SCH (08:00)
[2018-03-21] MEDS ORDERED: POVIDONE IODINE 5% (ANTISEPSIS KIT) 4 APPLICATIONS EACH NARE SCH (08:00)
[2018-03-21] MEDS ORDERED: SODIUM CHLORIDE 0.9% 1000 ML IV SCH (08:00)
[2018-03-21] MEDS ORDERED: VANCOMYCIN 1000 MG/NS 250 ML - implanted port/tunneled catheter IV SCH ×2 (08:00)
[2018-03-21] MEDS ORDERED: MIDAZOLAM HCL 5 MG/5 ML VIAL ONE (09:59)
[2018-03-21] MEDS ORDERED: fentaNYL CITRATE 250 MCG/5 ML AMP ONE (09:59)
[2018-03-21] MEDS ORDERED: SODIUM BICARBONATE 8.4% INJ 0 ML ONE (10:06)
[2018-03-21] MEDS ORDERED: LIDOCAINE 1%/EPINEPHrine 1:100,000 SOLN 30 ML VIAL ONE (10:24)
[2018-03-21] MEDS ORDERED: SODIUM CHLORIDE 0.9% FLUSH 10 ML FLUSH IVF PRN (11:00)
--- NOTE | 2018-03-21 11:00 | PD.RAD ---
Post Procedure Progress Note Pre Procedure Diagnosis: (1) Breast cancer Post Procedure Diagnosis: (1) Breast cancer Procedure Date: Mar 21, 2018 Supervising Radiologist: Basim Raza JR Proceduralist/Assist: Mai Mckeon RT(R), Bre Loja RT(R) Anesthesia: Local Plan of Activity Patient to Unit: ROPU Patient Condition: Good See PACS Report for procedural detail/treatment Central Venous Access Device Procedure 1 Right Internal Jugular Infusaport Placement single lumen Danish: 8 Findings: Pt requested local anesthetic only so that she may drive. Pt tolerated the procedure well. Port in good position and functions well. OK to use. Plan F/U with IR or a physician in 10-14 days for a site check. Jr. Ry,Basim West MD Mar 21, 2018 11:00
[2018-03-21 11:05] VITALS: BP 168/54; PULSE 73; RESP 16; TEMP 98.3; O2SAT 98
[2018-03-21 11:35] VITALS: BP 157/68; PULSE 81; RESP 20; O2SAT 100
[2018-03-21 12:05] VITALS: BP 156/62; PULSE 72; RESP 20; O2SAT 100
--- NOTE | 2018-03-21 12:44 | RADRPT ---
EXAM DATE: 03/21/2018 11:19 AM EDT AGE/SEX: 68 years / Female INDICATIONS: Patient with history of metastatic breast carcinoma. CLINICAL DATA: This is the patient's initial encounter. Patient reports that signs and symptoms have been present for 2 months and indicates a pain score of 0/10. MEDICAL/SURGICAL HISTORY: Hypercholesterolemia. Hypertension. Congestive heart failure. COPD .GERD.Boone's esophagus.MRSA.Bone cancer.Left breast cancer.Lytic lesion left femur.C-Spine mass. L eft breast biopsy.Left breast mastectomy and left axillary lymph node dissection.Bilateral total knee replacement.Left femur ORIF COMPARISON: No prior exams available for comparison. FLUORO TIME (min): 0.3 IMAGE SERIES: 1 Prophylactic antibiotics were administered with appropriate pre-procedure timing. Vancomycin within 2 hrs of procedure, Ancef (or alternative) within 1 hr of procedure. DEVICE(S): Right 8F Xcela plus port . . PROCEDURE : 1. Continuous pulse oximetry and EKG monitoring. 2. Intravenous conscious sedation. 3. Ultrasound guidance for venous access. 4. Fluoroscopic guided implantable central venous port placement. The patient was placed supine. The neck was prepped in sterile fashion. Full sterile technique was u sed, including cap, mask, sterile gloves and gown, and a large sterile sheet. Hand hygiene and 2% ch lorhexidine Betadine was utilized per protocol for cutaneous antisepsis with appropriate dry time for site. Sterile gel and sterile probe cover were utilized for ultrasound guidance. The skin and sub cutaneous tissues were infiltrated with local anesthetic solution. Under direct ultrasound guidance, central venous access was accomplished in the targeted vessel. The ultrasound images depicting access guidance were stored and saved to PACS for permanent record. A s ubcutaneous pocket was created using blunt dissection. The port was introduced to the pocket. The c atheter tubing was fed through a subcutaneous tunnel to the venotomy site. The catheter tubing was c ut to a suitable length and then was introduced through a valved Peel-Away sheath and positioned with catheter tubing tip at the cavo-atrial junction level. The pocket incision was closed with subcutic ular Vicryl suture. Steri-Strips were applied. The port was flushed and locked with heparin solutio n per protocol. Sterile dressing was applied to the site. The patient tolerated the procedure well. Conscious sedation was performed with the prescribed dosages and duration as above in the presence of an independent trained radiology nurse to assist in the monitoring of the patient. EKG and oximetry remained stable throughout the procedure. The patient tolerated the procedure well and there were no complications. The patient was sent to post anesthesia recovery in stable condition. CONCLUSION: 1. Uncomplicated ultrasound and fluoroscopic guided implanted central venous port catheter placement as described in detail above. An 8 Sami Power port was placed. Electronically signed by: Basim Raza MD 03/21/2018 12:43 PM EDT
== END 2018-03-21 13:00 | disposition home or self-care (01) ==
LOC: HROP 07:38 → HRIP 07:38 → HROP 13:00
PROVIDERS: ATTEND Internal Medicine Hematology & Oncology
DX: Z45.2 Encounter for adjustment and management of vascular access device (principal); C50.912 Malignant neoplasm of unspecified site of left female breast; I11.0 Hypertensive heart disease with heart failure; I50.9 Heart failure, unspecified; J44.9 Chronic obstructive pulmonary disease, unspecified; K21.9 Gastro-esophageal reflux disease without esophagitis
CPT/HCPCS: 36561; 76937; 77001; C1788; J0690; J1642; J2250; J3010

== ENCOUNTER 2018-04-12 09:23 | Inpatient (IN) ==
[2018-04-12] MEDS ORDERED: Acetaminophen 325 MG Tablet PO ONE (09:49)
[2018-04-12] MEDS ORDERED: Sodium Chlor 0.9% Inj 500 ML IV.SIG ONE (09:50)
[2018-04-12] MEDS ORDERED: Vancomycin Inj 1,000 MG in Sodium Chlor 0.9% Inj 250 ML IV.SIG STA (10:07)
[2018-04-12 10:40] LABS: Baso % (Auto) 0.9 % (0.0-2.0); Eos % (Auto) 0.4 % (0.0-4.0); Hematocrit 36.7 % (35.0-46.0); Hemoglobin 11.9 gm/dL (11.6-15.3); Lymph # (Auto) 0.5 th/mm3 (1.0-4.8); Lymph % (Auto) 13.5 % (9.0-44.0); Mean Corpuscular HGB Conc 32.4 % (32.0-36.0); Mean Corpuscular Hemoglobin 28.7 pg (27.0-34.0); Mean Corpuscular Volume 88.7 fL (80.0-100.0); Mean Platelet Volume 8.8 fL (7.0-11.0); Mono # (Auto) 0.6 th/mm3 (0.0-0.9); Mono % (Auto) 17.5 % (0.0-8.0); Neut # (Auto) 2.3 th/mm3 (1.8-7.7); Neut % (Auto) 67.7 % (16.0-70.0); Platelet Count 122 th/mm3 (150-450); Red Blood Count 4.14 mil/mm3 (4.00-5.30); Red Cell Distribution Width 25.8 % (11.6-17.2); White Blood Count 3.5 th/mm3 (4.0-11.0)
--- NOTE | 2018-04-12 10:42 | XR ---
EXAM DATE: 04/12/2018 10:32 AM EDT AGE/SEX: 68 years / Female INDICATIONS: Chest pains with shortness of breath. CLINICAL DATA: This is the patient's initial encounter. Patient reports that signs and symptoms have been present for 1 day and indicates a pain score of 9/10. MEDICAL/SURGICAL HISTORY: None. None. COMPARISON: [facility] [place], CHEST SINGLE AP, 03/10/2018. . FINDINGS: A single AP view of the chest demonstrates the lungs to be symmetrically aerated without evidence of mass, infiltrate or effusion. There continues to be some hyperaeration of both lung miguel. There is no evidence of pneumothorax. There is some chronic appearing interstitial changes bilaterally which appear to be stable. The cardiomediastinal contours are unremarkable and stable. Osseous structures are intact and stable. There is a right-sided [id number] in place. CONCLUSION: No new or acute pulmonary infiltrates. Electronically signed by: Garrett Ott MD 04/12/2018 10:40 AM EDT
[2018-04-12 10:49] LABS: INR 1.1 Ratio
[2018-04-12 10:52] LABS: Prothrombin Time 11.3 sec (9.8-11.6)
[2018-04-12 11:06] LABS: Alanine Aminotransferase 31 U/L (10-53); Phosphorus 1.4 mg/dL (2.5-4.9)
[2018-04-12 11:09] LABS: Alkaline Phosphatase 116 U/L (45-117); Anion Gap 12 meq/L (5-15); Aspartate Aminotransferase 22 U/L (15-37); Blood Urea Nitrogen 8 mg/dL (7-18); Calcium 7.6 mg/dL (8.5-10.1); Carbon Dioxide 20.9 meq/L (21.0-32.0); Chloride 105 meq/L (98-107); Creatine Kinase 54 U/L (26-192); Glomerular Filtration Rate 84 mL/min (>89); Glucose,Random 98 mg/dL (74-106); Lipase 34 U/L (73-393); Potassium 3.6 meq/L (3.5-5.1); Sodium 138 meq/L (136-145)
[2018-04-12 11:11] LABS: Total Protein 6.2 g/dL (6.4-8.2)
[2018-04-12 11:35] LABS: Eosinophils 1 % (0-4); Lymphocytes 11 % (9-44); Monocytes 7 % (0-8); Myelocytes 5 % (0-0); Ovalocytes 1+; Platelet Morphology Normal (Normal)
[2018-04-12 12:46] LABS: Bilirubin,Urine Negative (Negative); Clarity,Urine Clear (Clear); Color,Urine Amber (Yellw/Straw); Glucose,Urine (UA) Negative (Negative); Leukocyte Esterase,Urine Negative (Negative); Mucus,Urine Few /lpf (Occasional); Nitrite,Urine Negative (Negative); Specific Gravity,Urine 1.016 (1.002-1.035); Squamous Epithelial Cell,Urine 1 /hpf (0-5); Urobilinogen,Urine 4 or Greater mg/dL (Less than 2)
--- NOTE | 2018-04-12 14:44 | ECG ---
Date Performed: 04/12/2018 Time Performed: 10:21:02 PTAGE: 68 years EKG: Marked baseline artifact Sinus rhythm WITH OCCASIONAL VENTRICULAR PREMATURE COMPLEXES NONSPECIFIC ST & T-WAVE ABNORMALITY BORDERLINE ECG C ompared to prior electrocardiogram, Premature ectopic beats are present and nonspecific T-wave change s appear more marked. PREVIOUS TRACING : 05/29/2017 13.28 DOCTOR: John Paul Dillard Interpretating Date/Time 04/12/2018 14:41:58
--- NOTE | 2018-04-12 15:05 | P.HPIM ---
History of Present Illness Primary Care Physician: MERLENE Flanagan Chief Complaint: I feel weak and high fevers History of Present Illness: 68-year-old white female with a previous history of metastatic breast cancer, psoriasis, restrictive lung disease who currently is receiving radiation treatment and cycles of chemotherapy Taxol with last dose 10 days ago presents to the emergency room secondary to fevers and chills along with increased generalized weakness and decompensation for the past few weeks. She states her hematology oncologist is Dr. Zuñiga. She actually recently saw him in his office a few days ago. She denies any symptoms of chest congestion, coughing, chest pain, abdominal pain, nor any dysuria or diarrhea. She denies any new unusual rash or skin changes recently. - Inpatient Certification If this patient has been admitted as an Inpatient: I certify that the inpatient services were ordered in accordance with Medicare regulations governing the order. This includes certification that hospital inpatient services are reasonable and necessary and in the case of services not specified as inpatient-only under 42 CFR 419.22(n), that they are appropriately provided as inpatient services in accordance to with the 2-midnight benchmark under 43 CFR 412.3(e) Estimated Total Length of Stay (Days): 3 Plans for Post Hospital Care: Not yet determined Review of Systems Constitutional: Reports anorexia, Reports chills, Reports fever(s), Reports lack of energy, Reports malaise, Reports weakness Eyes: Denies discharge, Denies pain Ears, Nose, Mouth, and Throat: Reports neck pain, Denies difficulty swallowing, Denies nasal congestion, Denies nasal discharge, Denies sore throat Cardiovascular: Reports leg swelling, Denies chest pain, Denies shortness of breath Respiratory: Denies change in phlegm color, Denies chest congestion, Denies cough Gastrointestinal: Denies abdominal pain, Denies change in stools, Denies loose stools, Denies nausea, Denies vomiting Genitourinary: Denies blood in urine, Denies painful urination, Denies urinary urgency Musculoskeletal: Reports back pain, Reports body aches, Reports joint pain, Reports limited joint movement, Reports muscle weakness, Reports neck pain Skin/Breast: Reports breast skin changes, Denies rash, Denies sores, Denies yellowing of the skin Neurologic: Denies abnormal hearing, Denies abnormal movements, Denies abnormal speech, Denies localized weakness Psychiatric: Reports anxiety, Reports change in appetite Endocrine: Denies cold intolerance, Denies heat intolerance Hematologic/Lymphatic: Reports easy bruising PMFSH - History History Provided By: Patient - Medical History Medical History: Medical History (Last Updated 04/12/18 @ 14:57 by Klarissa Goetz MD) Breast cancer Invasive lobular carcinoma of breast, stage 4 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 Psoriasis Psoriatic arthritis Restrictive lung disease - Surgical History Surgical History: Surgical History (Last Updated 04/12/18 @ 14:59 by Klarissa Goetz MD) H/O mastectomy History of knee replacement History of open reduction and internal fixation (ORIF) procedure - Family History Family History: Family History (Last Updated 04/12/18 @ 15:00 by Klarissa Goetz MD) Mother Fibrosarcoma Father Liver disease - Tobacco History Second Hand Smoke Exposure: No Tobacco Use In Past 30 Days: No Smoking Status: Former smoker Tobacco Type: Cigarettes Cigarettes Per Day: 6 - Alcohol History How Often Do You Have a Drink Containing Alcohol: Never - Substance Use History Substance History: No History of Abuse - Travel History Recent Travel in the [facility] Within the Last 8 Weeks: No Recent Travel Out of the Country Within the Last 8 Weeks: No - Immunization History Tetanus Immunization: >5 Years Hx Influenza Vaccine This Season: Yes Medications and Allergies Allergies Allergy/AdvReac Type Severity Reaction Status Date / Time hydromorphone [From Dilaudid] AdvReac Intermediate Dizziness Verified 04/12/18 10:13 Home Medications Medication Instructions Recorded Confirmed Type dexamethasone [Decadron] 4 mg PO Q8H 04/12/18 04/12/18 History furosemide [Lasix] 40 mg PO DAILY PRN 04/12/18 04/12/18 History levomilnacipran [Fetzima] 20 mg PO DAILY 04/12/18 04/12/18 History lisinopril 5 mg PO BID 04/12/18 04/12/18 History metoprolol tartrate 25 mg PO DAILY 04/12/18 04/12/18 History ondansetron HCl [Zofran] 4 mg PO TID-QID PRN 04/12/18 04/12/18 History Exam Vital signs: Vital Signs 04/12/18 09:34 04/12/18 11:25 04/12/18 13:00 Temperature 101.8 F H 100.3 F H 99.6 F Pulse Rate 94 H 103 H 96 H Respiratory Rate 20 20 18 Blood Pressure 142/66 H 143/63 H 143/66 H Pulse Oximetry 97 98 98 Intake & Output 04/11/18 04/12/18 04/12/18 18:59 06:59 18:59 Intake Total 600 / 600 Balance 600 / 600 Weight 119.295 kg Intake: IV 600 / 600 Maxipime Inj 2,000 MG In NS Inj 100 / 100 100 ML @ 200 mls/hr IV.SIG STAT STA Rx#:[id number] NS Inj 500 ML @ Wide Open IV. 500 / 500 SIG BOLUS ONE Rx#:[id number] Narrative: GENERAL: Obese well-nourished well-developed female in no acute distress SKIN: Warm and dry. Radiation reddish skin changes over the right upper arm HEAD: Atraumatic. Normocephalic. EYES: Pupils equal and round. No scleral icterus. No injection or drainage. ENT: No nasal bleeding or discharge. Mucous membranes pink and moist. Oropharynx benign NECK: Trachea midline. No JVD. CARDIOVASCULAR: Regular rate and rhythm. RESPIRATORY: No accessory muscle use. Clear to auscultation. Breath sounds equal bilaterally. GASTROINTESTINAL: Abdomen soft, non-tender, nondistended. Hepatic and splenic margins not palpable. Normoactive bowel sounds MUSCULOSKELETAL: Extremities without clubbing, cyanosis, 1+ edema NEUROLOGICAL: Awake and alert to person place time and situation. No obvious cranial nerve deficits. Motor grossly within normal limits. Right upper arm was not able to AB duct past 90. Generalized weakness lower extremities PSYCHIATRIC: Appropriate mood and affect; insight and judgment normal. Results - Labs CBC & Chem 7: 04/12/18 09:45 04/12/18 09:45 Labs: Short CBC 04/12/18 Range/Units 09:45 WBC 3.5 L (4.0-11.0) th/mm3 Hgb 11.9 (11.6-15.3) gm/dL Hct 36.7 (35.0-46.0) % Plt Count 122 L D (150-450) th/mm3 BMP 04/12/18 09:45 Sodium 138 Potassium 3.6 Chloride 105 Carbon Dioxide 20.9 L BUN 8 Creatinine 0.70 Calcium 7.6 L Cardiac Enzymes 04/12/18 Range/Units 09:45 Total Creatine Kinase 54 (26-192) U/L Troponin I Less than 0.02 L (0.02-0.05) ng/mL Liver Function 04/12/18 Range/Units 09:45 Total Bilirubin 1.2 H (0.2-1.0) mg/dL AST 22 (15-37) U/L ALT 31 (10-53) U/L Alkaline Phosphatase 116 (45-117) U/L Albumin 3.0 L (3.4-5.0) g/dL Urine 04/12/18 Range/Units 11:40 Urine Color [place] (Yellw/Straw) Urine Clarity Clear (Clear) Urine pH 6.0 (5.0-8.5) Ur Specific [place] 1.016 (1.002-1.035) Urine Protein 30 H (Neg-Trace) mg/dL Urine Glucose (UA) Negative (Negative) mg/dL - Imaging Impressions Chest X-Ray 04/12/18 09:49 CONCLUSION: No new or acute pulmonary infiltrates. - ECG Prior ECG tracings: not available for review Interpretation: Normal sinus rhythm Caprini VTE Risk Assessment Caprini VTE Risk Assessment: Moderate/High Risk (score >= 2) Caprini Risk Assessment Model: Point Value = 1 Point Value = 2 Point Value = 3 Point Value = 5 Age 41-60 Minor surgery BMI > 25 kg/m2 Swollen legs Varicose veins or History of unexplained or recurrent spontaneous Oral contraceptives or hormone replacement Sepsis (< 1 month) Serious lung disease, including pneumonia (< 1 month) Abnormal pulmonary function Acute myocardial infarction Congestive heart failure (< 1 month) History of inflammatory bowel disease Medical patient at bed rest Age 61-74 Arthroscopic surgery Major open surgery (> 45 min) Laparoscopic surgery (> 45 min) Malignancy Confined to bed (> 72 hours) Immobilizing plaster cast Central venous access Age >= 75 History of VTE Family history of VTE Factor V Leiden Prothrombin [id number] Lupus anticoagulant Anticardiolipin antibodies Elevated serum homocysteine Heparin-induced thrombocytopenia Other congenital or acquired thrombophilia Stroke (< 1 month) Elective arthroplasty Hip, pelvis, or leg fracture Acute spinal cord injury (< 1 month) Prophylaxis Regimen: Total Risk Factor Score Risk Level Prophylaxis Regimen 0-1 Low Early ambulation 2 Moderate Order ONE of the following: *Sequential Compression Device (SCD) *Heparin 5000 units SQ BID 3-4 Higher Order ONE of the following medications: *Heparin 5000 units SQ TID *Enoxaparin/Lovenox 40 mg SQ daily (WT < 150 kg, CrCl > 30 mL/min) *Enoxaparin/Lovenox 30 mg SQ daily (WT < 150 kg, CrCl > 10-29 mL/min) *Enoxaparin/Lovenox 30 mg SQ BID (WT < 150 kg, CrCl > 30 mL/min) AND/OR *Sequential Compression Device (SCD) 5 or more Highest Order ONE of the following medications: *Heparin 5000 units SQ TID (Preferred with Epidurals) *Enoxaparin/Lovenox 40 mg SQ daily (WT < 150 kg, CrCl > 30 mL/min) *Enoxaparin/Lovenox 30 mg SQ daily (WT < 150 kg, CrCl > 10-29 mL/min) *Enoxaparin/Lovenox 30 mg SQ BID (WT < 150 kg, CrCl > 30 mL/min) AND *Sequential Compression Device (SCD) Assessment and Plan - Plan 1. Severe sepsis present on admission with presenting fever in a patient with immunosuppression on current chemotherapy and radiation therapy for stage IV metastatic cancer of the breast.At this time will follow with blood cultures and initiate vancomycin and cefepime IV. Will obtain consultation with Dr. Zuñiga her oncologist registered nurse ambulatory. Fever source unknown at this time. 2. History of metastatic breast cancerat this time hold off on chemotherapy and radiation therapy due to presenting fever. 3. Generalized weakness and decompensation due to recent chemotherapy and metastatic breast cancerphysical therapy 4. hypophosphatemia - supplement 5. DVT prophylaxisLovenox
[2018-04-12] MEDS ORDERED: Bisacodyl 10 MG Supp RECTAL PRN (15:06)
[2018-04-12] MEDS ORDERED: Furosemide 40 MG Tablet PO PRN (15:16)
--- NOTE | 2018-04-12 15:17 | ED ---
HPI General Chief Complaint: Fever Stated Complaint: General weakness/ evac Time Seen by Provider: 04/12/18 09:48 Source: patient History of Present Illness HPI Narrative: 68-year-old female that had chemotherapy last Monday for metastatic breast cancer and follows with Dr. Zuñiga notes fever that started last night. No other symptoms complaint: fever Onset (ago): day(s) Context: on chemotherapy Associated symptoms: denies other symptoms Relieving factors: nothing Exacerbating factors: exertion Treatments prior to arrival fever: none Related Data Home Medications Medication Instructions Recorded Confirmed dexamethasone [Decadron] 4 mg PO Q8H 04/12/18 04/12/18 furosemide [Lasix] 40 mg PO DAILY PRN 04/12/18 04/12/18 levomilnacipran [Fetzima] 20 mg PO DAILY 04/12/18 04/12/18 lisinopril 5 mg PO BID 04/12/18 04/12/18 metoprolol tartrate 25 mg PO DAILY 04/12/18 04/12/18 ondansetron HCl [Zofran] 4 mg PO TID-QID PRN 04/12/18 04/12/18 Allergies Allergy/AdvReac Type Severity Reaction Status Date / Time hydromorphone [From Dilaudid] AdvReac Intermediate Dizziness Verified 04/12/18 10:13 Review of Systems ROS Unobtainable All other systems reviewed negative except as stated in HPI Neurologic Denies abnormal hearing, Denies abnormal movements, Denies abnormal speech, Denies focal weakness and Reports weakness PMFSH Medical History Medical History Breast cancer (Acute) Invasive lobular carcinoma of breast, stage 4 (Acute) 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 (Acute) Psoriasis (Acute) Psoriatic arthritis (Acute) Restrictive lung disease (Acute) Surgical History Surgical History H/O mastectomy (Acute) History of knee replacement (Acute) History of open reduction and internal fixation (ORIF) procedure (Acute) Family History Family History Mother Fibrosarcoma Father Liver disease Social History Social History Substance History: No History of Abuse Second Hand Smoke Exposure: No Smoking Status: Former smoker Tobacco Type: Cigarettes Cigarettes Per Day: 6 How Often Do You Have a Drink Containing Alcohol: Never Recent Travel in [facility] within the Last 8 Weeks: No Recent Out of Country Travel within the Last 8 Weeks: No Immunization History Tetanus Immunization: >5 Years Hx Influenza Vaccine This Season: Yes Exam Narrative Exam Narrative: GENERAL: 68-year-old female in no apparent distress SKIN: Focused skin assessment warm/dry. HEAD: Atraumatic. Normocephalic. EYES: Pupils equal and round. No scleral icterus. No injection or drainage. ENT: No nasal bleeding or discharge. Mucous membranes pink and moist. NECK: Trachea midline. No JVD. CARDIOVASCULAR: Regular rate and rhythm. RESPIRATORY: No accessory muscle use. Clear to auscultation. Breath sounds equal bilaterally. GASTROINTESTINAL: Abdomen soft, non-tender, nondistended. MUSCULOSKELETAL: No obvious deformities. No clubbing. No cyanosis. Mild bilateral edema to lower legs NEUROLOGICAL: Awake and alert. Moves extremities. Normal speech. PSYCHIATRIC: Appropriate mood and affect; insight and judgment normal. Course Hospital Course: Patient stable in ER and will be admitted for further care Consultations Consultation #1: Dr. Goetz agrees to admission Initial Documented Vital Signs Temperature 101.8 F H 04/12/18 09:34 Pulse Rate 94 H 04/12/18 09:34 Respiratory Rate 20 04/12/18 09:34 Blood Pressure 142/66 H 04/12/18 09:34 Pulse Oximetry 97 04/12/18 09:34 Last Documented Vital Signs Temperature 99.6 F 04/12/18 13:00 Pulse Rate 96 H 04/12/18 13:00 Respiratory Rate 18 04/12/18 13:00 Blood Pressure 143/66 H 04/12/18 13:00 Pulse Oximetry 98 04/12/18 13:00 Medical Decision Making MDM Narrative Medical decision making narrative: Patient with fever with recent chemo. Will check blood work, imaging and dose with broad-spectrum antibiotics and small fluids given edema to legs. Differential Diagnosis Differential Diagnosis: UTI, sepsis, pneumonia Lab Data Lab results reviewed: Yes I reviewed the patient's lab results. Result diagrams: 04/12/18 09:45 04/12/18 09:45 Lab Results 04/12/18 04/12/18 04/12/18 Range/Units 09:45 09:45 09:45 WBC 3.5 L (4.0-11.0) th/mm3 RBC 4.14 (4.00-5.30) mil/mm3 Hgb 11.9 (11.6-15.3) gm/dL Hct 36.7 (35.0-46.0) % MCV 88.7 (80.0-100.0) fL MCH 28.7 (27.0-34.0) pg MCHC 32.4 (32.0-36.0) % RDW 25.8 H (11.6-17.2) % Plt Count 122 L D (150-450) th/mm3 MPV 8.8 (7.0-11.0) fL Prelim Diff (Auto) Slide review pending Neut % (Auto) 67.7 (16.0-70.0) % Lymph % (Auto) 13.5 (9.0-44.0) % [place] % (Auto) 17.5 H (0.0-8.0) % Eos % (Auto) 0.4 (0.0-4.0) % Baso % (Auto) 0.9 (0.0-2.0) % Neut # (Auto) 2.3 (1.8-7.7) th/mm3 Lymph # (Auto) 0.5 L (1.0-4.8) th/mm3 [place] # (Auto) 0.6 (0.0-0.9) th/mm3 Eos # (Auto) 0.0 (0.0-0.4) th/mm3 Baso # (Auto) 0.0 (0.0-0.2) th/mm3 WBC Differential Manual diff final Seg Neuts % (Manual) 62 (16-70) % Band Neuts % (Manual) 14 H (0-6) % Lymphocytes % (Manual) 11 (9-44) % Monocytes % (Manual) 7 (0-8) % Eosinophils % (Manual) 1 (0-4) % Myelocytes % (Man) 5 H (0-0) % Abs Neuts (Manual) 2.8 (1.8-7.7) th/mm3 Differential Comment . Platelet Estimate Low L (Normal) Platelet Morphology Normal (Normal) Ovalocytes 1+ H (None) PT 11.3 (9.8-11.6) sec INR 1.1 Ratio APTT 24.0 L (24.3-30.1) sec Sodium 138 (136-145) meq/L Potassium 3.6 (3.5-5.1) meq/L Chloride 105 (98-107) meq/L Carbon Dioxide 20.9 L (21.0-32.0) meq/L Anion Gap 12 (5-15) meq/L BUN 8 (7-18) mg/dL Creatinine 0.70 (0.50-1.00) mg/dL Estimated GFR 84 L (>89) mL/min POC Glucose (68-110) mg/dl Random Glucose 98 (74-106) mg/dL Lactic Acid (0.4-2.0) mmol/L Calcium 7.6 L (8.5-10.1) mg/dL Phosphorus 1.4 L (2.5-4.9) mg/dL Magnesium 2.0 (1.5-2.5) mg/dL Total Bilirubin 1.2 H (0.2-1.0) mg/dL AST 22 (15-37) U/L ALT 31 (10-53) U/L Alkaline Phosphatase 116 (45-117) U/L Total Creatine Kinase 54 (26-192) U/L Troponin I Less than 0.02 L (0.02-0.05) ng/mL B-Natriuretic Peptide (0-100) pg/mL Total Protein 6.2 L (6.4-8.2) g/dL Albumin 3.0 L (3.4-5.0) g/dL Lipase 34 L (73-393) U/L Urine Color (Yellw/Straw) Urine Clarity (Clear) Urine pH (5.0-8.5) Ur Specific [place] (1.002-1.035) Urine Protein (Neg-Trace) mg/dL Urine Glucose (UA) (Negative) mg/dL Urine Ketones (Negative) mg/dL Urine Occult Blood (Negative) Urine Nitrate (Negative) Urine Bilirubin (Negative) Urine Urobilinogen (Less than 2) mg/dL Ur Leukocyte Esterase (Negative) Urine RBC (0-3) /hpf Urine WBC (0-5) /hpf Ur Squamous Epith Cells (0-5) /hpf Urine Mucus (Occasional) /lpf Micro UA Comment Urine Culture Comments 04/12/18 04/12/18 04/12/18 Range/Units 09:45 09:45 10:35 WBC (4.0-11.0) th/mm3 RBC (4.00-5.30) mil/mm3 Hgb (11.6-15.3) gm/dL Hct (35.0-46.0) % MCV (80.0-100.0) fL MCH (27.0-34.0) pg MCHC (32.0-36.0) % RDW (11.6-17.2) % Plt Count (150-450) th/mm3 MPV (7.0-11.0) fL Prelim Diff (Auto) Neut % (Auto) (16.0-70.0) % Lymph % (Auto) (9.0-44.0) % [place] % (Auto) (0.0-8.0) % Eos % (Auto) (0.0-4.0) % Baso % (Auto) (0.0-2.0) % Neut # (Auto) (1.8-7.7) th/mm3 Lymph # (Auto) (1.0-4.8) th/mm3 [place] # (Auto) (0.0-0.9) th/mm3 Eos # (Auto) (0.0-0.4) th/mm3 Baso # (Auto) (0.0-0.2) th/mm3 WBC Differential Seg Neuts % (Manual) (16-70) % Band Neuts % (Manual) (0-6) % Lymphocytes % (Manual) (9-44) % Monocytes % (Manual) (0-8) % Eosinophils % (Manual) (0-4) % Myelocytes % (Man) (0-0) % Abs Neuts (Manual) (1.8-7.7) th/mm3 Differential Comment Platelet Estimate (Normal) Platelet Morphology (Normal) Ovalocytes (None) PT (9.8-11.6) sec INR Ratio APTT (24.3-30.1) sec Sodium (136-145) meq/L Potassium (3.5-5.1) meq/L Chloride (98-107) meq/L Carbon Dioxide (21.0-32.0) meq/L Anion Gap (5-15) meq/L BUN (7-18) mg/dL Creatinine (0.50-1.00) mg/dL Estimated GFR (>89) mL/min POC Glucose 96 (68-110) mg/dl Random Glucose (74-106) mg/dL Lactic Acid 2.8 H (0.4-2.0) mmol/L Calcium (8.5-10.1) mg/dL Phosphorus (2.5-4.9) mg/dL Magnesium (1.5-2.5) mg/dL Total Bilirubin (0.2-1.0) mg/dL AST (15-37) U/L ALT (10-53) U/L Alkaline Phosphatase (45-117) U/L Total Creatine Kinase (26-192) U/L Troponin I (0.02-0.05) ng/mL B-Natriuretic Peptide 24 (0-100) pg/mL Total Protein (6.4-8.2) g/dL Albumin (3.4-5.0) g/dL Lipase (73-393) U/L Urine Color (Yellw/Straw) Urine Clarity (Clear) Urine pH (5.0-8.5) Ur Specific [place] (1.002-1.035) Urine Protein (Neg-Trace) mg/dL Urine Glucose (UA) (Negative) mg/dL Urine Ketones (Negative) mg/dL Urine Occult Blood (Negative) Urine Nitrate (Negative) Urine Bilirubin (Negative) Urine Urobilinogen (Less than 2) mg/dL Ur Leukocyte Esterase (Negative) Urine RBC (0-3) /hpf Urine WBC (0-5) /hpf Ur Squamous Epith Cells (0-5) /hpf Urine Mucus (Occasional) /lpf Micro UA Comment Urine Culture Comments 04/12/18 Range/Units 11:40 WBC (4.0-11.0) th/mm3 RBC (4.00-5.30) mil/mm3 Hgb (11.6-15.3) gm/dL Hct (35.0-46.0) % MCV (80.0-100.0) fL MCH (27.0-34.0) pg MCHC (32.0-36.0) % RDW (11.6-17.2) % Plt Count (150-450) th/mm3 MPV (7.0-11.0) fL Prelim Diff (Auto) Neut % (Auto) (16.0-70.0) % Lymph % (Auto) (9.0-44.0) % [place] % (Auto) (0.0-8.0) % Eos % (Auto) (0.0-4.0) % Baso % (Auto) (0.0-2.0) % Neut # (Auto) (1.8-7.7) th/mm3 Lymph # (Auto) (1.0-4.8) th/mm3 [place] # (Auto) (0.0-0.9) th/mm3 Eos # (Auto) (0.0-0.4) th/mm3 Baso # (Auto) (0.0-0.2) th/mm3 WBC Differential Seg Neuts % (Manual) (16-70) % Band Neuts % (Manual) (0-6) % Lymphocytes % (Manual) (9-44) % Monocytes % (Manual) (0-8) % Eosinophils % (Manual) (0-4) % Myelocytes % (Man) (0-0) % Abs Neuts (Manual) (1.8-7.7) th/mm3 Differential Comment Platelet Estimate (Normal) Platelet Morphology (Normal) Ovalocytes (None) PT (9.8-11.6) sec INR Ratio APTT (24.3-30.1) sec Sodium (136-145) meq/L Potassium (3.5-5.1) meq/L Chloride (98-107) meq/L Carbon Dioxide (21.0-32.0) meq/L Anion Gap (5-15) meq/L BUN (7-18) mg/dL Creatinine (0.50-1.00) mg/dL Estimated GFR (>89) mL/min POC Glucose (68-110) mg/dl Random Glucose (74-106) mg/dL Lactic Acid (0.4-2.0) mmol/L Calcium (8.5-10.1) mg/dL Phosphorus (2.5-4.9) mg/dL Magnesium (1.5-2.5) mg/dL Total Bilirubin (0.2-1.0) mg/dL AST (15-37) U/L ALT (10-53) U/L Alkaline Phosphatase (45-117) U/L Total Creatine Kinase (26-192) U/L Troponin I (0.02-0.05) ng/mL B-Natriuretic Peptide (0-100) pg/mL Total Protein (6.4-8.2) g/dL Albumin (3.4-5.0) g/dL Lipase (73-393) U/L Urine Color [place] (Yellw/Straw) Urine Clarity Clear (Clear) Urine pH 6.0 (5.0-8.5) Ur Specific [place] 1.016 (1.002-1.035) Urine Protein 30 H (Neg-Trace) mg/dL Urine Glucose (UA) Negative (Negative) mg/dL Urine Ketones Negative (Negative) mg/dL Urine Occult Blood Negative (Negative) Urine Nitrate Negative (Negative) Urine Bilirubin Negative (Negative) Urine Urobilinogen 4 or greater (Less than 2) mg/dL Ur Leukocyte Esterase Negative (Negative) Urine RBC 1 (0-3) /hpf Urine WBC 3 (0-5) /hpf Ur Squamous Epith Cells 1 (0-5) /hpf Urine Mucus Few H (Occasional) /lpf Micro UA Comment Culture not ind Urine Culture Comments Culture not ind Imaging Data Attestation: I personally reviewed and interpreted this imaging study as follows : Radiologist's impression: ITS Impressions Chest X-Ray 04/12/18 09:49 CONCLUSION: No new or acute pulmonary infiltrates. Discharge Plan Discharge Disposition Patient Disposition: 30 Still Patient Discharge Details Discharge Problem: Sepsis, Metastatic breast cancer Physicians Team ED Provider: Christi Almaraz Primary Care Provider: Nichol Dominguez Attending Provider: Klarissa Goetz Discharge Interventions Interventions: Vital Signs Last Done: 04/12/18 13:00 Status ED Status: Admitted Patient
[2018-04-12] MEDS ORDERED: Ketorolac Inj 30 MG/ML (IVP) Vial IV.PUSH PRN ×2 (15:20)
[2018-04-12] MEDS ORDERED: Naloxone Inj 0.4 MG/ML Vial IV.PUSH PRN (15:20)
[2018-04-12] MEDS: Enoxaparin Inj 40 MG/0.4 ML Syringe SQ SCH (15:49)
[2018-04-12] MEDS ORDERED: Vancomycin Consult Pharmacy OTHER SCH (16:00)
[2018-04-12] MEDS ORDERED: Vancomycin Inj 1,500 MG in Sodium Chlor 0.9% Inj 500 ML IV.SIG ONE (17:00)
--- NOTE | 2018-04-12 18:58 | P.CON ---
History of Present Illness Service: Hematology/Oncology. Consult date: 04/12/18 Primary Care Provider: MERLENE Flanagan Family Provider: EMRLENE Flanagan Chief Complaint: Fever and chills. Generalized fatigue. History of Present Illness: Ms. 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 Several months ago she was diagnosed with metastatic lobular carcinoma of the breast after she presented with progressive pain in her neck and additional areas of bony pain. Her initial diagnosis of breast carcinoma dates back to 2014 when she was diagnosed with a T2 N1 M0, ER PA positive HER-2 negative invasive lobular carcinoma of the breast while living in [facility]. She underwent surgical resection with a left mastectomy followed by initiation of adjuvant endocrine therapy with anastrozole. Found that she relocated to [place] and establish follow-up [place]. In the spring 2017 she developed pain in her hips and neck and back, imaging studies were performed and she was found to have multifocal bony metastatic disease including a heavily involved C6-C7 vertebral body with nerve root impingement. She was initiated on palliative radiation therapy to C6-C7 and was subsequently initiated on systemic palliative therapy with a combination of Ibrance and Faslodex. Her symptoms of pain in the neck however progressed in March 2018 and she was subsequently initiated on weekly Taxol, she has thus far completed 1 full cycle of weekly Taxol; 3 weeks on and one-week off. The patient had also remained on corticosteroid therapy with dexamethasone for management of metastatic tumor related pain. Ms. Sellers reports having felt increasingly weak over the past several days to the point where she was unable to get herself out of the chair. This morning she was sitting on her chair when she felt chills and sweats and felt feverish, she was unable to take her temperature. She was brought into the emergency department for further workup and management. Since she has been hospitalized she has not had recurrent fever but has been initiated on empiric antibiotic therapy. Oncology service been asked to see her for further workup and management. Review of Systems Constitutional: Reports body ache(s), Reports chills, Reports excessive sweating , Reports fatigue, Reports fever(s), Reports headache(s), Reports lack of energy , Reports malaise, Reports weakness, Reports weight gain, Denies anorexia, Denies daytime sleepiness, Denies increased appetite, Denies night sweats, Denies weight loss, Denies other Eyes: Denies blind spots, Denies blurry vision, Denies bulging eyes, Denies change in vision, Denies double vision, Denies discharge, Denies dry eyes, Denies floaters, Denies irritation, Denies itchy eyes, Denies loss of vision, Denies pain, Denies requires corrective lenses, Denies sensitivity to light, Denies other Ears, Nose, Mouth, and Throat: Reports headache(s), Denies abnormal hearing, Denies bleeding gums, Denies bad breath, Denies change in voice, Denies dental pain, Denies difficulty swallowing, Denies dizziness, Denies dry mouth, Denies ear discharge, Denies ear pain, Denies facial pain, Denies hearing loss, Denies hoarseness, Denies lip swelling, Denies nosebleed, Denies mouth lesions, Denies mouth pain, Denies nasal congestion, Denies nasal discharge, Denies nasal obstruction, Denies nasal trauma, Denies neck lump, Denies neck pain, Denies nose pain, Denies pain with swallowing, Denies poor balance, Denies post nasal drip, Denies ringing in the ears, Denies sinus pain, Denies sinus pressure, Denies sore throat, Denies throat swelling, Denies tongue swelling, Denies other Cardiovascular: Reports foot swelling, Reports leg pain with activity, Reports leg swelling, Reports lightheadedness, Reports shortness of breath, Reports shortness of breath with activity, Denies chest pain, Denies chest pain at rest , Denies chest pain with activity, Denies excessive sweating, Denies fainting, Denies fast heart rate, Denies generalized swelling, Denies irregular heart rhythm, Denies leg sores, Denies radiating jaw, neck or arm pain, Denies rapid, pounding, or irregular heartbeat, Denies shortness of breath when lying down, Denies shortness of breath causing sudden awakening, Denies slow heart rate, Denies other Respiratory: Reports cough, Denies change in phlegm color, Denies chest congestion, Denies coughing up blood, Denies excessive phlegm production, Denies pain on inspiration, Denies pain with cough, Denies shortness of breath, Denies shortness of breath with activity, Denies snoring, Denies stridor, Denies wheezing, Denies other Gastrointestinal: Reports nausea, Reports vomiting, Denies abdominal pain, Denies belching, Denies black, tarry stools, Denies bloating, Denies bright, red blood in stools, Denies change in bowel habits, Denies constant urge to pass stool, Denies change in stools, Denies coffee ground vomit, Denies constipation, Denies cramping, Denies difficulty swallowing, Denies excessive passing of gas, Denies feeling full early, Denies heartburn, Denies incontinent of stools, Denies loose stools, Denies pain with swallowing, Denies vomiting blood, Denies other Genitourinary: Denies abnormal periods, Denies abnormal vaginal bleeding, Denies absent period, Denies bleeding between periods, Denies blood in urine, Denies difficulty starting urination, Denies difficulty urinating, Denies dribbling after urination, Denies frequent nighttime urination, Denies genital itching, Denies genital lesions, Denies heavy periods, Denies hot flashes, Denies light periods, Denies nipple discharge, Denies painful intercourse, Denies painful periods, Denies painful urination, Denies pelvic pain, Denies prolapse symptoms, Denies sexual problems, Denies side pain, Denies urinary incontinence, Denies urinary urgency, Denies vaginal discharge, Denies vaginal dryness, Denies vaginal odor, Denies vaginal itching, Denies other Musculoskeletal: Reports abnormal walking, Reports back pain, Reports body aches , Reports decreased muscle mass, Reports joint pain, Reports muscle weakness, Reports neck pain, Reports numbness, Denies deformity, Denies joint swelling, Denies limited joint movement, Denies loss of height, Denies muscle cramps, Denies radiating pain into limb, Denies stiffness, Denies tingling, Denies other Skin/Breast: Reports change in breast shape, Denies acne, Denies bleeding lesions, Denies boil, Denies breast skin changes, Denies breast pain, Denies breast lump, Denies change in hair, Denies change in skin color, Denies changing lesions, Denies dry skin, Denies excessive hair growth, Denies hair loss, Denies itching, Denies lesions, Denies nail changes, Denies new lesions, Denies nipple discharge, Denies non-healing lesions, Denies redness, Denies sensitivity to light, Denies rash, Denies skin pain, Denies skin ulcer, Denies sores, Denies stretch murrell, Denies unusual bruising, Denies wounds, Denies yellowing of the skin, Denies other Neurologic: Reports confusion, Reports dizziness, Reports headache(s), Reports lack of coordination, Reports localized weakness (Involving the right upper extremity.), Reports numbness, Reports unsteadiness, Reports weakness, Denies abnormal hearing, Denies abnormal movements, Denies abnormal speech, Denies abnormal walking, Denies behavioral changes, Denies burning sensations, Denies fainting, Denies frequent falls, Denies loss of vision, Denies memory loss, Denies other visual disturbances, Denies radiating pain, Denies restless legs, Denies convulsions, Denies seizure-like activity, Denies sensory deficit, Denies tingling, Denies tingling/numbness/burning sensations, Denies tremor(s) Psychiatric: Reports anxiety, Reports change in appetite, Reports difficulty concentrating, Reports irritability, Reports lack of enjoyment, Reports mood swings, Denies abnormal sleep pattern, Denies behavioral changes, Denies change in sex drive, Denies confusion, Denies depression, Denies hearing things others do not hear, Denies hopelessness, Denies memory loss, Denies panic attacks, Denies paranoia, Denies seeing things others do not see, Denies sensing things others do not sense, Denies tactile hallucinations, Denies thoughts of hurting/ killing others, Denies thoughts of hurting/killing yourself, Denies other Endocrine: Denies cold intolerance, Denies excessive sweating, Denies flushing, Denies heat intolerance, Denies increased hunger, Denies increased thirst, Denies increased urination, Denies rapid, pounding, or irregular heartbeat Hematologic/Lymphatic: Denies easy bleeding, Denies easy bruising, Denies enlarged lymph nodes Allergic/Immunologic: Denies GI upset with certain foods, Denies hives, Denies itchy eyes, Denies lip swelling, Denies seasonal runny nose, Denies throat swelling, Denies tongue swelling PMFSH - History History Provided By: Patient, Medical Record - Medical History Medical History: Medical History (Last Reviewed 04/12/18 @ 15:14 by Christi Almaraz MD) Breast cancer Invasive lobular carcinoma of breast, stage 4 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 Psoriasis Psoriatic arthritis Restrictive lung disease - Surgical History Surgical History: Surgical History (Last Reviewed 04/12/18 @ 15:14 by Christi Almaraz MD) H/O mastectomy History of knee replacement History of open reduction and internal fixation (ORIF) procedure - Family History Family History: Family History (Last Reviewed 04/12/18 @ 15:14 by Christi Almaraz MD) Mother Fibrosarcoma Father Liver disease - Tobacco History Second Hand Smoke Exposure: Yes Tobacco Use In Past 30 Days: Yes (quit 6 weeks ago) Smoking Status: Former smoker Tobacco Type: Cigarettes Cigarettes Per Day: 6 - Alcohol History How Often Do You Have a Drink Containing Alcohol: Never - Substance Use History Substance History: No History of Abuse - Travel History Recent Travel in the [place] Within the Last 8 Weeks: No Recent Travel Out of the Country Within the Last 8 Weeks: No - Immunization History Tetanus Immunization: >5 Years Hx Influenza Vaccine This Season: Yes Medications and Allergies Active Medications: Active Medications Acetaminophen (Tylenol) 650 mg PO Q4HR PRN PRN Reason: Pain Scale 1 To2 orfever>100.4 Al Hydroxide/Mg Hydroxide (Milk Of Ale [place]) 30 ml PO Q12H PRN PRN Reason: Mild Constipation Bisacodyl (Dulcolax Supp) 10 mg RECTAL DAILY PRN PRN Reason: SEVERE CONSITIPATION Dexamethasone (Decadron) 4 mg PO Q8H [facility] Last Admin: 04/12/18 15:49 Dose: 4 mg Enoxaparin Sodium (Lovenox Inj) 40 mg SQ Q24H [facility] Last Admin: 04/12/18 15:49 Dose: 40 mg Furosemide (Lasix) 40 mg PO DAILY PRN PRN Reason: Fluid retention Cefepime HCl 2,000 mg/ Sodium (Chloride) 100 mls @ 200 mls/hr IV.SIG Q8H [facility] Vancomycin HCl 1,500 mg/ (Sodium Chloride) 515 mls @ 250 mls/hr IV.SIG ONCE ONE Stop: 04/12/18 19:03 Last Admin: 04/12/18 18:00 Dose: 250 mls/hr Vancomycin HCl 1,250 mg/ (Sodium Chloride) 262.5 mls @ 250 mls/hr IV.SIG Q12H [facility] Ketorolac Tromethamine (Toradol Inj) 15 mg IV.PUSH Q6H PRN PRN Reason: PAIN 3-5; IF UABLE TO TAKE PO Stop: 04/17/18 15:19 Ketorolac Tromethamine (Toradol Inj) 30 mg IV.PUSH Q6H PRN PRN Reason: PAIN 6-10;IF UNABLE TO TAKE PO Stop: 04/17/18 15:19 Lactulose (Lactulose Liq) 30 ml PO DAILY PRN PRN Reason: SEVERE CONSITIPATION Lisinopril (Prinivil) 5 mg PO BID [facility] Metoprolol Tartrate (Lopressor) 25 mg PO DAILY [facility] Miscellaneous Information ([facility] Ordered Lab Info) 0 each OTHER ONCE ONE Stop: 04/14/18 04:46 Naloxone HCl (Narcan Inj) 0.4 mg IV.PUSH UNSCH PRN PRN Reason: SEE LABEL COMMENTS Ondansetron HCl (Zofran Odt) 4 mg PO Q6H PRN PRN Reason: NAUSEA OR VOMITING Pharmacy Profile Note (Vancomycin Consult Pharmacy) 1 each OTHER UNSCH [facility] Potassium Phosphate (K-Phos Original) 500 mg PO BID [facility] Stop: 04/13/18 09:01 Sennosides (Senokot) 17.2 mg PO Q12H PRN PRN Reason: Moderate Constipation Temazepam (Restoril) 15 mg PO HS PRN PRN Reason: INSOMNIA Allergies Allergy/AdvReac Type Severity Reaction Status Date / Time hydromorphone [From Dilaudid] AdvReac Intermediate Dizziness Verified 04/12/18 10:13 Home Medications Medication Instructions Recorded Confirmed Type dexamethasone [Decadron] 4 mg PO Q8H 04/12/18 04/12/18 History furosemide [Lasix] 40 mg PO DAILY PRN 04/12/18 04/12/18 History levomilnacipran [Fetzima] 20 mg PO DAILY 04/12/18 04/12/18 History lisinopril 5 mg PO BID 04/12/18 04/12/18 History metoprolol tartrate 25 mg PO DAILY 04/12/18 04/12/18 History ondansetron HCl [Zofran] 4 mg PO TID-QID PRN 04/12/18 04/12/18 History Physical Exam Vital signs: Vital Signs 04/12/18 09:34 04/12/18 11:25 04/12/18 13:00 Temperature 101.8 F H 100.3 F H 99.6 F Pulse Rate 94 H 103 H 96 H Respiratory Rate 20 20 18 Blood Pressure 142/66 H 143/63 H 143/66 H Pulse Oximetry 97 98 98 04/12/18 15:19 04/12/18 16:17 04/12/18 17:14 Temperature 97.9 F 98.6 F 98.5 F Pulse Rate 88 98 H Respiratory Rate 20 17 28 H Blood Pressure 128/63 155/67 H 174/73 H Pulse Oximetry Intake & Output 04/11/18 04/12/18 04/12/18 18:59 06:59 18:59 Intake Total 600 / 600 Balance 600 / 600 Weight 119.295 kg Intake: IV 600 / 600 Maxipime Inj 2,000 MG In NS Inj 100 / 100 100 ML @ 200 mls/hr IV.SIG STAT STA Rx#:[id number] NS Inj 500 ML @ Wide Open IV. 500 / 500 SIG BOLUS ONE Rx#:[id number] Other: Date of Last Bowel Movement 04/11/18 - Constitutional no acute distress Comments: Elderly lady, cushingoid appearing, sitting up in bed, no acute distress. - Routine HEENT Exam Head: Present: normocephalic, cushingoid faces. Absent: atraumatic, abrasion, laceration, hematoma, Sandoval's sign, CSF rhinorrhea Eye: Present: EOMI, PERRL ENT: Present: mucous membranes moist - Routine Neck Exam Present: supple. Absent: full ROM, JVD, carotid bruit - Routine Respiratory Exam Present: prolonged expiratory phase, distant breath sounds, diminished air movement (Over bilateral bases.). Absent: accessory muscle use, patient mechanically ventilated, decreased breath sounds, CTA bilaterally, rales, respiratory distress, rhonchi, stridor, wheezes, crackles - Routine Cardiovascular Exam Present: RRR, S1, S2. Absent: murmur, gallop, rubs, S3, S4, click - Routine Abdominal Exam Present: soft, normoactive bowel sounds. Absent: tenderness, distended, rebound , guarding, firm, rigid, organomegaly, mass, hernia, bruit - Routine Extremities Exam Present: edema, full ROM, pulses intact. Absent: cyanosis, clubbing - Routine Skin Exam Present: intact. Absent: cyanosis, erythema, dry, pallor, mottling, petechiae, urticaria, warm, lesions, jaundice, normal turgor, scars, wounds, rash - Routine Neurological Exam Present: alert, oriented X3, CN II-XII intact Weakness of the right upper extremity specifically flexion of the arm. Abduction of the upper extremity also weakened. On the right side - Detailed Neurological Exam: Coma Scale Eye Opening: Spontaneous Verbal Response: Oriented Motor Response: Obey commands Gerald Coma Scale Total: 15 - Routine Psychiatric Exam Present: normal affect, normal thought process Assessment and Plan - Assessment (1) Sepsis Code(s): A41.9 - Sepsis, unspecified organism Status: Acute Plan: On empiric antibiotic therapy with vancomycin, will add on cefepime. Await blood culture results. Will request urine culture as well. Chest x-ray reviewed, no evidence of acute infiltrates. She has been afebrile since admission. She is without evidence of neutropenia. (2) Metastatic breast cancer Code(s): C50.919 - Malignant neoplasm of unspecified site of unspecified female breast Status: Chronic Plan: With extensive bone only metastatic disease, presently on palliative systemic therapy with paclitaxel. She is also on palliative radiation therapy to her vertebral bodies, she will resume palliative radiation on 04/13/2018. - Plan Ms. Sellers is a 68-year-old lady with a diagnosis of metastatic invasive lobular carcinoma of the breast, presently on palliative systemic therapy with Taxol with concomitant radiation for management of extensive bony metastatic disease. Her disease is strongly estrogen and progesterone receptor positive and HER-2 nonamplified. She was last seen by me on 04/09/2018 in my outpatient clinic, she had completed 3 consecutive weeks of low-dose weekly Taxol, this was her week off. In addition to systemic therapy with Taxol the patient had been on palliative radiation and on dexamethasone therapy for management of cancer related pain. I will resume dexamethasone as well a dose of 2 mg p.o. twice daily. 1. Empiric antibiotic therapy. Obtain urine cultures. Resume radiation on 04/13/2018. Supportive care. Code Status: Full. (1) Sepsis Qualifiers: Sepsis type: sepsis due to unspecified organism Qualified Code(s): A41.9 - Sepsis, unspecified organism
[2018-04-12] MEDS: Potassium Phosphate 500 MG Soluble Tablet PO SCH (20:33)
[2018-04-12] MEDS: Lisinopril 5 MG Tablet PO SCH (20:33)
[2018-04-12] MEDS: Temazepam 15 MG Capsule PO PRN (22:25)
[2018-04-12] MEDS ORDERED: Vancomycin Inj 1,000 MG in Sodium Chlor 0.9% Inj 250 ML IV.SIG SCH (23:00)
[2018-04-13] MEDS ORDERED: Vancomycin Inj 1,250 MG in Sodium Chlor 0.9% Inj 250 ML IV.SIG SCH (05:00)
[2018-04-13 06:22] LABS: Baso % (Auto) 0.2 % (0.0-2.0); Eos % (Auto) 0.6 % (0.0-4.0); Hematocrit 30.8 % (35.0-46.0); Hemoglobin 10.2 gm/dL (11.6-15.3); Lymph # (Auto) 0.4 th/mm3 (1.0-4.8); Lymph % (Auto) 17.6 % (9.0-44.0); Mean Corpuscular HGB Conc 33.1 % (32.0-36.0); Mean Corpuscular Volume 87.6 fL (80.0-100.0); Mean Platelet Volume 8.3 fL (7.0-11.0); Mono # (Auto) 0.1 th/mm3 (0.0-0.9); Mono % (Auto) 6.5 % (0.0-8.0); Neut # (Auto) 1.7 th/mm3 (1.8-7.7); Neut % (Auto) 75.1 % (16.0-70.0); Platelet Count 105 th/mm3 (150-450); Red Blood Count 3.51 mil/mm3 (4.00-5.30); Red Cell Distribution Width 24.6 % (11.6-17.2); White Blood Count 2.2 th/mm3 (4.0-11.0)
[2018-04-13 06:38] LABS: Anion Gap 11 meq/L (5-15); Blood Urea Nitrogen 10 mg/dL (7-18); Calcium 6.9 mg/dL (8.5-10.1); Chloride 113 meq/L (98-107); Glomerular Filtration Rate Greater Than 89 mL/min (>89); Glucose,Random 136 mg/dL (74-106); Phosphorus 1.2 mg/dL (2.5-4.9); Sodium 144 meq/L (136-145)
[2018-04-13 07:11] LABS: Calcium-Albumin Corrected 7.8 mg/dL (8.5-10.1); Total Protein 5.4 g/dL (6.4-8.2)
[2018-04-13 07:56] LABS: Eosinophils 3 % (0-4); Lymphocytes 10 % (9-44); Metamyelocytes 4 % (0-1); Monocytes 4 % (0-8); Myelocytes 2 % (0-0); Platelet Morphology Normal (Normal)
[2018-04-13 07:57] LABS: Ovalocytes 1+
--- NOTE | 2018-04-13 09:06 | P.PN ---
Subjective Interval history: Follow up for fever of unknown origin in a patient with history of metastatic breast cancer. Patient is currently doing well. No CP, SOB, fever chills overnight. Tolerating diet well. She continues to have right arm weakness that has been going on for several weeks. Physical Exam Vital signs: Vital Signs 04/12/18 09:34 04/12/18 11:25 04/12/18 13:00 Temperature 101.8 F H 100.3 F H 99.6 F Pulse Rate 94 H 103 H 96 H Respiratory Rate 20 20 18 Blood Pressure 142/66 H 143/63 H 143/66 H Pulse Oximetry 97 98 98 04/12/18 15:19 04/12/18 16:17 04/12/18 17:14 Temperature 97.9 F 98.6 F 98.5 F Pulse Rate 88 98 H Respiratory Rate 20 17 28 H Blood Pressure 128/63 155/67 H 174/73 H Pulse Oximetry 04/12/18 18:00 04/12/18 20:00 04/13/18 00:00 Temperature 98 F 97.7 F Pulse Rate 93 H 83 Respiratory Rate 20 18 Blood Pressure 173/71 H 151/66 H 153/57 H Pulse Oximetry 100 98 04/13/18 04:00 Temperature 96.7 F L Pulse Rate 70 Respiratory Rate 18 Blood Pressure 159/77 H Pulse Oximetry 100 Intake & Output 04/12/18 04/13/18 04/13/18 18:59 06:59 18:59 Intake Total 850 / 850 1095 / 1095 262.5 / 262.5 Output Total 900 / 900 Balance 850 / 850 195 / 195 262.5 / 262.5 Weight 119.295 kg 120.2 kg Intake: IV 850 / 850 615 / 615 262.5 / 262.5 Maxipime Inj 2,000 MG In NS Inj 100 / 100 100 / 100 100 ML @ 200 mls/hr IV.SIG Q12HR [facility]O Rx#:[id number] NS Inj 500 ML @ Wide Open IV. 500 / 500 SIG BOLUS ONE Rx#:[id number] Vancomycin Inj 1,250 MG In NS 262.5 / 262.5 Inj 250 ML @ 250 mls/hr IV.SIG Q12H [facility] Rx#:[id number] Vancomycin Inj 1,500 MG In NS 515 / 515 Inj 500 ML @ 250 mls/hr IV.SIG ONCE ONE Rx#:[id number] Oral 480 / 480 Output: Urine 900 / 900 Other: # Voids 1 Date of Last Bowel Movement 04/11/18 04/12/18 # Bowel Movements 1 Narrative: GENERAL: AOX3 NAD SKIN: Warm and dry. HEAD: Normocephalic. EYES: No scleral icterus. No injection or drainage. NECK: Supple, trachea midline. No JVD or lymphadenopathy. CARDIOVASCULAR: Regular rate and rhythm without murmurs, gallops, or rubs. RESPIRATORY: Breath sounds equal bilaterally. No accessory muscle use. GASTROINTESTINAL: Abdomen soft, non-tender, nondistended. MUSCULOSKELETAL: No cyanosis, or edema. Unable to lift up right arm. BACK: Nontender without obvious deformity. No CVA tenderness. Results - Labs CBC & Chem 7: 04/13/18 05:50 04/13/18 05:50 Laboratory Results - last 24 hr 04/12/18 04/12/18 04/12/18 09:45 09:45 09:45 WBC 3.5 L RBC 4.14 Hgb 11.9 Hct 36.7 MCV 88.7 MCH 28.7 MCHC 32.4 RDW 25.8 H Plt Count 122 L D MPV 8.8 Prelim Diff (Auto) Slide review pending Neut % (Auto) 67.7 Lymph % (Auto) 13.5 [place] % (Auto) 17.5 H Eos % (Auto) 0.4 Baso % (Auto) 0.9 Neut # (Auto) 2.3 Lymph # (Auto) 0.5 L [place] # (Auto) 0.6 Eos # (Auto) 0.0 Baso # (Auto) 0.0 WBC Differential Manual diff final Seg Neuts % (Manual) 62 Band Neuts % (Manual) 14 H Lymphocytes % (Manual) 11 Monocytes % (Manual) 7 Eosinophils % (Manual) 1 Metamyelocytes % (Man) Myelocytes % (Man) 5 H Abs Neuts (Manual) 2.8 Differential Comment . Platelet Estimate Low L Platelet Morphology Normal Ovalocytes 1+ H PT 11.3 INR 1.1 APTT 24.0 L Sodium 138 Potassium 3.6 Chloride 105 Carbon Dioxide 20.9 L Anion Gap 12 BUN 8 Creatinine 0.70 Estimated GFR 84 L POC Glucose Random Glucose 98 Lactic Acid Calcium 7.6 L Prot Corrected Calcium Phosphorus 1.4 L Magnesium 2.0 Total Bilirubin 1.2 H AST 22 ALT 31 Alkaline Phosphatase 116 Total Creatine Kinase 54 Troponin I Less than 0.02 L B-Natriuretic Peptide Total Protein 6.2 L Albumin 3.0 L Lipase 34 L Urine Color Urine Clarity Urine pH Ur Specific [place] Urine Protein Urine Glucose (UA) Urine Ketones Urine Occult Blood Urine Nitrate Urine Bilirubin Urine Urobilinogen Ur Leukocyte Esterase Urine RBC Urine WBC Ur Squamous Epith Cells Urine Mucus Micro UA Comment Urine Culture Comments 04/12/18 04/12/18 04/12/18 09:45 09:45 10:35 WBC RBC Hgb Hct MCV MCH MCHC RDW Plt Count MPV Prelim Diff (Auto) Neut % (Auto) Lymph % (Auto) [place] % (Auto) Eos % (Auto) Baso % (Auto) Neut # (Auto) Lymph # (Auto) [place] # (Auto) Eos # (Auto) Baso # (Auto) WBC Differential Seg Neuts % (Manual) Band Neuts % (Manual) Lymphocytes % (Manual) Monocytes % (Manual) Eosinophils % (Manual) Metamyelocytes % (Man) Myelocytes % (Man) Abs Neuts (Manual) Differential Comment Platelet Estimate Platelet Morphology Ovalocytes PT INR APTT Sodium Potassium Chloride Carbon Dioxide Anion Gap BUN Creatinine Estimated GFR POC Glucose 96 Random Glucose Lactic Acid 2.8 H Calcium Prot Corrected Calcium Phosphorus Magnesium Total Bilirubin AST ALT Alkaline Phosphatase Total Creatine Kinase Troponin I B-Natriuretic Peptide 24 Total Protein Albumin Lipase Urine Color Urine Clarity Urine pH Ur Specific [place] Urine Protein Urine Glucose (UA) Urine Ketones Urine Occult Blood Urine Nitrate Urine Bilirubin Urine Urobilinogen Ur Leukocyte Esterase Urine RBC Urine WBC Ur Squamous Epith Cells Urine Mucus Micro UA Comment Urine Culture Comments 04/12/18 04/12/18 04/13/18 11:40 16:09 05:50 WBC 2.2 L RBC 3.51 L Hgb 10.2 L Hct 30.8 L MCV 87.6 MCH 29.0 MCHC 33.1 RDW 24.6 H Plt Count 105 L MPV 8.3 Prelim Diff (Auto) Slide review pending Neut % (Auto) 75.1 H Lymph % (Auto) 17.6 [place] % (Auto) 6.5 Eos % (Auto) 0.6 Baso % (Auto) 0.2 Neut # (Auto) 1.7 L Lymph # (Auto) 0.4 L [place] # (Auto) 0.1 Eos # (Auto) 0.0 Baso # (Auto) 0.0 WBC Differential Manual diff final Seg Neuts % (Manual) 70 Band Neuts % (Manual) 7 H Lymphocytes % (Manual) 10 Monocytes % (Manual) 4 Eosinophils % (Manual) 3 Metamyelocytes % (Man) 4 H Myelocytes % (Man) 2 H Abs Neuts (Manual) 1.8 Differential Comment . Platelet Estimate Low L Platelet Morphology Normal Ovalocytes 1+ H PT INR APTT Sodium Potassium Chloride Carbon Dioxide Anion Gap BUN Creatinine Estimated GFR POC Glucose Random Glucose Lactic Acid 2.8 H Calcium Prot Corrected Calcium Phosphorus Magnesium Total Bilirubin AST ALT Alkaline Phosphatase Total Creatine Kinase Troponin I B-Natriuretic Peptide Total Protein Albumin Lipase Urine Color [place] Urine Clarity Clear Urine pH 6.0 Ur Specific [place] 1.016 Urine Protein 30 H Urine Glucose (UA) Negative Urine Ketones Negative Urine Occult Blood Negative Urine Nitrate Negative Urine Bilirubin Negative Urine Urobilinogen 4 or greater Ur Leukocyte Esterase Negative Urine RBC 1 Urine WBC 3 Ur Squamous Epith Cells 1 Urine Mucus Few H Micro UA Comment Culture not ind Urine Culture Comments Culture not ind 04/13/18 05:50 WBC RBC Hgb Hct MCV MCH MCHC RDW Plt Count MPV Prelim Diff (Auto) Neut % (Auto) Lymph % (Auto) [place] % (Auto) Eos % (Auto) Baso % (Auto) Neut # (Auto) Lymph # (Auto) [place] # (Auto) Eos # (Auto) Baso # (Auto) WBC Differential Seg Neuts % (Manual) Band Neuts % (Manual) Lymphocytes % (Manual) Monocytes % (Manual) Eosinophils % (Manual) Metamyelocytes % (Man) Myelocytes % (Man) Abs Neuts (Manual) Differential Comment Platelet Estimate Platelet Morphology Ovalocytes PT INR APTT Sodium 144 Potassium 3.0 L Chloride 113 H D Carbon Dioxide 20.0 L Anion Gap 11 BUN 10 Creatinine 0.42 L Estimated GFR Greater than 89 POC Glucose Random Glucose 136 H Lactic Acid Calcium 6.9 L* Prot Corrected Calcium 7.8 L Phosphorus 1.2 L Magnesium Total Bilirubin AST ALT Alkaline Phosphatase Total Creatine Kinase Troponin I B-Natriuretic Peptide Total Protein 5.4 L D Albumin Lipase Urine Color Urine Clarity Urine pH Ur Specific [place] Urine Protein Urine Glucose (UA) Urine Ketones Urine Occult Blood Urine Nitrate Urine Bilirubin Urine Urobilinogen Ur Leukocyte Esterase Urine RBC Urine WBC Ur Squamous Epith Cells Urine Mucus Micro UA Comment Urine Culture Comments - Imaging Impressions Chest X-Ray 04/12/18 09:49 CONCLUSION: No new or acute pulmonary infiltrates. Assessment and Plan - Plan Ms. Sellers is a pleasant 68 year old female with a diagnosis of T2N1M0 ER, [place] positive, Her-2 negative metastatic breast cancer, mets to bones including involvement of C6-C7 vertebral bodies with nerve root impingement. She was admitted to the hospital due to one day duration of fever. She did not have cough, abdominal pain, urinary symptoms. CXR, UA unremarkable. Severe sepsis present on admission - Blood cultures pending. - Currently afebrile. - Continue Vancomycin and Cefepime. Metastatic breast cancer C6-C7 nerve root impingement - Dr. Zuñiga has been following patient. Patient will likely resume radiation therapy today. - Physical therapy for generalized weakness and fariba right arm weakness. She was on home PT. Hypertension - Continue Lasix, Lisinopril and metoprolol. Full code. Lovenox.
[2018-04-13] MEDS: Metoprolol Tartrate 25 MG Tablet PO SCH (09:52)
[2018-04-13] MEDS: Potassium Phosphate 500 MG Soluble Tablet PO SCH (09:52)
[2018-04-13] MEDS: Lisinopril 5 MG Tablet PO SCH ×2 (09:52→20:42)
[2018-04-13] MEDS: Enoxaparin Inj 40 MG/0.4 ML Syringe SQ SCH (16:14)
[2018-04-13] MEDS: Azithromycin 250 MG Tablet PO SCH (16:14)
[2018-04-13] MEDS: Temazepam 15 MG Capsule PO PRN (20:42)
[2018-04-14] MEDS ORDERED: Pharmacy Ordered Lab Info OTHER ONE (04:45)
--- NOTE | 2018-04-14 08:38 | P.PNONC ---
Subjective Interval history: Afebrile x's 2 days. Pt sitting on bedside, eating breakfast. No c/o at this time. She reports improved bilateral ankle edema, since receiving lasix yesterday. Vomiting yesterday, which she attributes to GERD and not receiving protonix in the a.m. Improved today, denies n/v/d. Objective Vital Signs/Intake & Output: Vital Signs 04/13/18 12:00 04/13/18 16:00 04/13/18 17:17 Temperature 98.4 F 98 F 98.2 F Pulse Rate 84 86 74 Respiratory Rate 24 24 Blood Pressure 137/62 168/89 H 145/60 H Pulse Oximetry 99 100 100 04/13/18 20:00 04/14/18 04:00 04/14/18 07:00 Temperature 97.6 F 98.1 F Pulse Rate 70 58 L 70 Respiratory Rate 18 18 Blood Pressure 114/51 L 126/42 L Pulse Oximetry 97 94 L Intake & Output 04/13/18 04/14/18 04/14/18 18:59 06:59 18:59 Intake Total 1622.5 / 1622.5 1080 / 1080 Output Total 1600 / 1600 1750 / 1750 Balance 22.5 / 22.5 -670 / -670 Weight 121 kg Intake: IV 362.5 / 362.5 Maxipime Inj 2,000 MG In NS Inj 100 / 100 100 ML @ 200 mls/hr IV.SIG Q12HR [facility] Rx#:[id number] Vancomycin Inj 1,250 MG In NS 262.5 / 262.5 Inj 250 ML @ 250 mls/hr IV.SIG Q12H [facility] Rx#:[id number] Oral 1260 / 1260 1080 / 1080 Output: Urine 1600 / 1600 1750 / 1750 Other: # Voids 4 Date of Last Bowel Movement 04/13/18 04/13/18 Result Diagrams: 04/14/18 10:15 04/13/18 05:50 Laboratory Results: Laboratory Results - last 24 hr 04/14/18 06:00 Vancomycin Trough 6.9 Culture Results: Microbiology 04/12/18 09:45 Aerobic Blood Culture - Preliminary Blood - Peripheral No growth in 1 day Anaerobic Blood Culture - Preliminary No growth in 1 day 04/12/18 10:00 Aerobic Blood Culture - Preliminary Blood - Peripheral No growth in 1 day Anaerobic Blood Culture - Preliminary No growth in 1 day Medications: Active Medications Generic Name Dose Route Start Last Admin Trade Name Freq PRN Reason Stop Dose Admin Azithromycin 500 mg 04/13/18 16:00 04/13/18 16:14 Zithromax PO 500 mg DAILY [facility]O Administration Dexamethasone 4 mg 04/12/18 21:00 04/13/18 20:42 Decadron PO 4 mg BID [facility]O Administration Enoxaparin Sodium 40 mg 04/12/18 16:00 04/13/18 16:14 Lovenox Inj SQ 40 mg Q24H [facility]O Administration Furosemide 40 mg 04/12/18 15:16 04/13/18 09:52 Lasix PO 40 mg DAILY PRN Administration Fluid retention Cefepime HCl 2,000 mg/ Sodium 100 mls @ 200 mls/hr 04/12/18 21:00 04/13/18 22 :04 Chloride IV.SIG 200 mls/hr Q12HR [facility] Administration Ketorolac Tromethamine 30 mg 04/12/18 15:20 04/12/18 20:41 Toradol Inj IV.PUSH 04/17/18 15:19 30 mg Q6H PRN Administration PAIN 6-10;IF UNABLE TO TAKE PO Lisinopril 5 mg 04/12/18 21:00 04/13/18 20:42 Prinivil PO 5 mg BID [facility]O Administration Metoprolol Tartrate 25 mg 04/13/18 09:00 04/13/18 09:52 Lopressor PO 25 mg DAILY [facility]O Administration Pantoprazole Sodium 40 mg 04/13/18 12:00 04/13/18 13:55 Protonix PO 40 mg DAILY [facility]O Administration Pramipexole Dihydrochloride 1 mg 04/12/18 21:30 04/13/18 20:42 Mirapex PO 1 mg HS [facility]O Administration Temazepam 15 mg 04/12/18 15:06 04/13/18 20:42 Restoril PO 15 mg HS PRN Administration INSOMNIA Objective Remarks: GENERAL: Well-nourished, well-developed patient. SKIN: Pale, warm and dry. Port access to right chest wall. HEAD: Normocephalic. EYES: No scleral icterus. No injection or drainage. [place]. NECK: Supple, trachea midline. No JVD or lymphadenopathy. LYMPHATIC: Rt supraclavicular adenopathy. CARDIOVASCULAR: Regular rate and rhythm without murmurs. RESPIRATORY: Posterior breath sounds equal bilaterally. No accessory muscle use. GASTROINTESTINAL: Abdomen soft, non-tender, nondistended. EXTREMITIES: No cyanosis. 2+ bilateral ankle edema. MUSCULOSKELETAL: Adequate muscle tone. Decreased ROM RUE. NEUROLOGICAL: No obvious focal deficit. Awake, alert, and oriented x3. PSYCHIATRIC: Appropriate mood and affect; insight and judgment normal. Assessment/Plan - Plan Ms. Sellers is a 68-year old female pt of Dr. Zuñiga. She is currently being treated for metastatic lobular breast cancer, with palliative chemotherapy taxol , and radiation to her spine. She was recently admitted for sepsis, fevers and generalized weakness. Radiation therapy was resumed on 04/13/[address] Christensen and she is due to start cycle of taxol on Monday04/16/18. This prior week was her week off of taxol. Plan: 1. Sepsis. Unknown origin, afebrile, blood culturess no growth x's 2 days. Will stop antibiotics. Will continue to monitor blood cultures. 2. Fevers, resolved at this time. continue to monitor for fevers, draw blood cultures and notify MD per policy, for fever 100.4 or greater. 3. Metastatic breast cancer. Continue radiation per Dr. Christensen. 4. Hypokalemia. Will recheck CMP today and replace as needed. - Attending Statement The exam, history, and the medical decision-making described in the above note were completed with the assistance of the mid-level provider. I reviewed and agree with the findings presented. I attest that I had a [id number] encounter with the patient on the same day, and personally performed and documented my assessment and findings in the medical record. Patient is feeling better. They have come pain. She remains afebrile. Blood culture negative for 2 days. The febrile illness may be due to tumor fever. We will stop the antibiotic and monitor for now.
[2018-04-14] MEDS: Azithromycin 250 MG Tablet PO SCH (09:20)
[2018-04-14] MEDS: Metoprolol Tartrate 25 MG Tablet PO SCH (09:21)
[2018-04-14] MEDS: Lisinopril 5 MG Tablet PO SCH ×2 (09:21→20:27)
[2018-04-14 11:09] LABS: Baso % (Auto) 0.4 % (0.0-2.0); Eos % (Auto) 0.4 % (0.0-4.0); Hematocrit 30.2 % (35.0-46.0); Hemoglobin 10.1 gm/dL (11.6-15.3); Lymph # (Auto) 0.7 th/mm3 (1.0-4.8); Lymph % (Auto) 13.4 % (9.0-44.0); Mean Corpuscular HGB Conc 33.3 % (32.0-36.0); Mean Corpuscular Hemoglobin 28.6 pg (27.0-34.0); Mean Corpuscular Volume 85.8 fL (80.0-100.0); Mean Platelet Volume 8.8 fL (7.0-11.0); Mono # (Auto) 0.7 th/mm3 (0.0-0.9); Mono % (Auto) 12.9 % (0.0-8.0); Neut # (Auto) 3.8 th/mm3 (1.8-7.7); Neut % (Auto) 72.9 % (16.0-70.0); Platelet Count 139 th/mm3 (150-450); Red Blood Count 3.52 mil/mm3 (4.00-5.30); Red Cell Distribution Width 24.5 % (11.6-17.2); White Blood Count 5.3 th/mm3 (4.0-11.0)
--- NOTE | 2018-04-14 11:14 | P.PN ---
Subjective Interval history: Follow up for fever of unknown origin in a patient with history of metastatic breast cancer. Last night patient had some nausea. However today patient reports feeling well. No fever or chills. Physical Exam Vital signs: Vital Signs 04/13/18 12:00 04/13/18 16:00 04/13/18 17:17 Temperature 98.4 F 98 F 98.2 F Pulse Rate 84 86 74 Respiratory Rate 24 24 Blood Pressure 137/62 168/89 H 145/60 H Pulse Oximetry 99 100 100 04/13/18 20:00 04/14/18 04:00 04/14/18 07:00 Temperature 97.6 F 98.1 F Pulse Rate 70 58 L 70 Respiratory Rate 18 18 Blood Pressure 114/51 L 126/42 L Pulse Oximetry 97 94 L 04/14/18 09:11 04/14/18 09:53 Temperature 97.4 F L Pulse Rate 76 Respiratory Rate 18 Blood Pressure 121/51 L Pulse Oximetry 100 100 Intake & Output 04/13/18 04/14/18 04/14/18 18:59 06:59 18:59 Intake Total 1622.5 / 1622.5 1180 / 1180 100 / 100 Output Total 1600 / 1600 1750 / 1750 Balance 22.5 / 22.5 -570 / -570 100 / 100 Weight 121 kg Intake: IV 362.5 / 362.5 100 / 100 100 / 100 Maxipime Inj 2,000 MG In NS Inj 100 / 100 100 / 100 100 / 100 100 ML @ 200 mls/hr IV.SIG Q12HR [facility] Rx#:[id number] Vancomycin Inj 1,250 MG In NS 262.5 / 262.5 Inj 250 ML @ 250 mls/hr IV.SIG Q12H [facility] Rx#:[id number] Oral 1260 / 1260 1080 / 1080 Output: Urine 1600 / 1600 1750 / 1750 Other: # Voids 4 Date of Last Bowel Movement 04/13/18 04/13/18 04/12/18 Narrative: GENERAL: AOX3 NAD SKIN: Warm and dry. HEAD: Normocephalic. EYES: No scleral icterus. No injection or drainage. NECK: Supple, trachea midline. No JVD or lymphadenopathy. CARDIOVASCULAR: Regular rate and rhythm without murmurs, gallops, or rubs. RESPIRATORY: Breath sounds equal bilaterally. No accessory muscle use. GASTROINTESTINAL: Abdomen soft, non-tender, nondistended. MUSCULOSKELETAL: No cyanosis, or edema. Unable to lift up right arm. BACK: Nontender without obvious deformity. No CVA tenderness. Results - Labs CBC & Chem 7: 04/13/18 05:50 04/13/18 05:50 Laboratory Results - last 24 hr 04/14/18 06:00 Vancomycin Trough 6.9 Microbiology 04/12/18 09:45 Blood - Peripheral Aerobic Blood Culture - Preliminary No growth in 2 days 04/12/18 09:45 Blood - Peripheral Anaerobic Blood Culture - Preliminary No growth in 2 days 04/12/18 10:00 Blood - Peripheral Aerobic Blood Culture - Preliminary No growth in 2 days 04/12/18 10:00 Blood - Peripheral Anaerobic Blood Culture - Preliminary No growth in 2 days Assessment and Plan - Plan Ms. Sellers is a pleasant 68 year old female with a diagnosis of T2N1M0 ER, [place] positive, Her-2 negative metastatic breast cancer, mets to bones including involvement of C6-C7 vertebral bodies with nerve root impingement. She was admitted to the hospital due to one day duration of fever. She did not have cough, abdominal pain, urinary symptoms. CXR, UA unremarkable. Severe sepsis present on admission - Blood cultures no growth in 2 days. - Currently afebrile. - Continue cefepime and azithromycin. - We will can probably consider discontinuing antibiotics and observe patient off antibiotics. Metastatic breast cancer C6-C7 nerve root impingement -Hematology oncology following patient. Patient will likely undergo radiation treatment on 04/16/2018. -Physical therapy for generalized weakness and fariba right arm weakness. She was on home PT. Hypertension - Continue Lasix, Lisinopril and metoprolol. Full code. Lovenox.
[2018-04-14 11:51] LABS: Eosinophils 2 % (0-4); Lymphocytes 17 % (9-44); Metamyelocytes 1 % (0-1); Monocytes 15 % (0-8); Platelet Morphology Normal (Normal); Tallied Nucleated RBC 2 (0-0)
[2018-04-14 11:52] LABS: Ovalocytes 1+
[2018-04-14 11:54] LABS: Alanine Aminotransferase 34 U/L (10-53); Albumin 2.5 g/dL (3.4-5.0); Alkaline Phosphatase 109 U/L (45-117); Anion Gap 11 meq/L (5-15); Aspartate Aminotransferase 13 U/L (15-37); Blood Urea Nitrogen 14 mg/dL (7-18); Calcium 7.9 mg/dL (8.5-10.1); Carbon Dioxide 22.3 meq/L (21.0-32.0); Chloride 114 meq/L (98-107); Glomerular Filtration Rate Greater Than 89 mL/min (>89); Glucose,Random 169 mg/dL (74-106); Sodium 147 meq/L (136-145); Total Protein 5.1 g/dL (6.4-8.2)
[2018-04-14 11:59] LABS: Potassium 2.7 meq/L (3.5-5.1)
[2018-04-14] MEDS: Potassium Phos/Sodium Phos 250 MG Tablet PO SCH ×2 (12:48→17:44)
[2018-04-14] MEDS: Enoxaparin Inj 40 MG/0.4 ML Syringe SQ SCH (15:51)
[2018-04-14] MEDS: Temazepam 15 MG Capsule PO PRN (20:28)
[2018-04-15 06:04] LABS: Baso % (Auto) 0.2 % (0.0-2.0); Eos % (Auto) 0.8 % (0.0-4.0); Hematocrit 29.3 % (35.0-46.0); Hemoglobin 9.8 gm/dL (11.6-15.3); Lymph # (Auto) 0.6 th/mm3 (1.0-4.8); Lymph % (Auto) 12.6 % (9.0-44.0); Mean Corpuscular HGB Conc 33.4 % (32.0-36.0); Mean Corpuscular Hemoglobin 28.6 pg (27.0-34.0); Mean Corpuscular Volume 85.6 fL (80.0-100.0); Mean Platelet Volume 8.7 fL (7.0-11.0); Mono # (Auto) 0.8 th/mm3 (0.0-0.9); Mono % (Auto) 16.3 % (0.0-8.0); Neut # (Auto) 3.4 th/mm3 (1.8-7.7); Neut % (Auto) 70.1 % (16.0-70.0); Platelet Count 125 th/mm3 (150-450); Red Blood Count 3.42 mil/mm3 (4.00-5.30); Red Cell Distribution Width 24.9 % (11.6-17.2); White Blood Count 4.8 th/mm3 (4.0-11.0)
[2018-04-15 06:28] LABS: Anion Gap 10 meq/L (5-15); Blood Urea Nitrogen 16 mg/dL (7-18); Calcium 8.2 mg/dL (8.5-10.1); Carbon Dioxide 22.4 meq/L (21.0-32.0); Chloride 115 meq/L (98-107); Glomerular Filtration Rate Greater Than 89 mL/min (>89); Glucose,Random 116 mg/dL (74-106); Potassium 3.9 meq/L (3.5-5.1); Sodium 147 meq/L (136-145)
[2018-04-15] MEDS ORDERED: Heparin Central Flush 100 UNIT/ML 5 ML Vial IV.FLUSH PRN (07:02)
[2018-04-15] MEDS: Lisinopril 5 MG Tablet PO SCH ×2 (09:00→21:08)
[2018-04-15] MEDS: Potassium Phos/Sodium Phos 250 MG Tablet PO SCH ×3 (09:00→18:04)
[2018-04-15] MEDS: Metoprolol Tartrate 25 MG Tablet PO SCH (09:01)
[2018-04-15 09:54] LABS: Eosinophils 1 % (0-4); Lymphocytes 9 % (9-44); Metamyelocytes 1 % (0-1); Monocytes 8 % (0-8); Myelocytes 2 % (0-0)
[2018-04-15 09:55] LABS: Burr Cells 1+; Ovalocytes 1+; Platelet Morphology Normal (Normal); Tear Drop Cells 1+; Toxic Granulation 1+
--- NOTE | 2018-04-15 10:40 | P.PN ---
Subjective Interval history: Follow up for fever of unknown origin in a patient with history of metastatic breast cancer. Patient is currently doing well. No chest pain, shortness of breath, fever or chills. She has been off antibiotics. Physical Exam Vital signs: Vital Signs 04/14/18 11:00 04/14/18 11:34 04/14/18 15:00 Temperature 98.3 F Pulse Rate 71 69 67 Respiratory Rate 20 Blood Pressure 124/46 L Pulse Oximetry 100 04/14/18 15:48 04/14/18 20:00 04/14/18 20:08 Temperature 98.5 F 98.4 F Pulse Rate 80 75 66 Respiratory Rate 18 18 Blood Pressure 128/48 L 157/78 H Pulse Oximetry 97 97 04/15/18 00:00 04/15/18 04:00 04/15/18 04:16 Temperature 97.7 F 97.9 F Pulse Rate 61 66 63 Respiratory Rate 20 20 Blood Pressure 126/64 116/45 L Pulse Oximetry 99 99 04/15/18 07:00 04/15/18 08:56 Temperature 98.2 F Pulse Rate 77 73 Respiratory Rate 20 Blood Pressure 117/47 L Pulse Oximetry 100 Intake & Output 04/14/18 04/15/18 04/15/18 18:59 06:59 18:59 Intake Total 2140 / 2140 1080 / 1080 Output Total 300 / 300 840 / 840 Balance 1840 / 1840 240 / 240 Weight 122.3 kg Intake: IV 100 / 100 Maxipime Inj 2,000 MG In NS Inj 100 / 100 100 ML @ 200 mls/hr IV.SIG Q12HR [facility] Rx#:[id number] Oral 2039 1080 / 1080 Output: Urine 300 / 300 840 / 840 Other: Date of Last Bowel Movement 04/14/18 04/14/18 04/14/18 # Bowel Movements 1 Narrative: GENERAL: AOX3 NAD SKIN: Warm and dry. HEAD: Normocephalic. EYES: No scleral icterus. No injection or drainage. NECK: Supple, trachea midline. No JVD or lymphadenopathy. CARDIOVASCULAR: Regular rate and rhythm without murmurs, gallops, or rubs. RESPIRATORY: Breath sounds equal bilaterally. No accessory muscle use. GASTROINTESTINAL: Abdomen soft, non-tender, nondistended. MUSCULOSKELETAL: No cyanosis, or edema. Unable to lift up right arm. BACK: Nontender without obvious deformity. No CVA tenderness. Results - Labs CBC & Chem 7: 04/15/18 04:30 04/15/18 04:30 Laboratory Results - last 24 hr 04/14/18 04/14/18 04/15/18 10:15 10:15 04:30 WBC 5.3 4.8 RBC 3.52 L 3.42 L Hgb 10.1 L 9.8 L Hct 30.2 L 29.3 L MCV 85.8 85.6 MCH 28.6 28.6 MCHC 33.3 33.4 RDW 24.5 H 24.9 H Plt Count 139 L D 125 L MPV 8.8 8.7 Prelim Diff (Auto) Slide review pending Slide review pending Neut % (Auto) 72.9 H 70.1 H Lymph % (Auto) 13.4 12.6 [place] % (Auto) 12.9 H 16.3 H Eos % (Auto) 0.4 0.8 Baso % (Auto) 0.4 0.2 Neut # (Auto) 3.8 3.4 Lymph # (Auto) 0.7 L 0.6 L [place] # (Auto) 0.7 0.8 Eos # (Auto) 0.0 0.0 Baso # (Auto) 0.0 0.0 WBC Differential Manual diff final Manual diff final Seg Neuts % (Manual) 61 71 H Band Neuts % (Manual) 4 8 H Lymphocytes % (Manual) 17 9 Monocytes % (Manual) 15 H 8 Eosinophils % (Manual) 2 1 Metamyelocytes % (Man) 1 1 Myelocytes % (Man) 2 H Abs Neuts (Manual) 3.5 3.9 Nucleated RBCs/100 WBC 2 H Differential Comment . . Toxic Granulation 1+ H Platelet Estimate Low L Low L Platelet Morphology Normal Normal Tear Drop Cells 1+ H Ovalocytes 1+ H 1+ H Jeremy Cells 1+ H Sodium 147 H Potassium 2.7 L* Chloride 114 H Carbon Dioxide 22.3 Anion Gap 11 BUN 14 Creatinine 0.65 Estimated GFR Greater than 89 Random Glucose 169 H Calcium 7.9 L D Total Bilirubin 0.5 AST 13 L ALT 34 Alkaline Phosphatase 109 Total Protein 5.1 L Albumin 2.5 L 04/15/18 04:30 WBC RBC Hgb Hct MCV MCH MCHC RDW Plt Count MPV Prelim Diff (Auto) Neut % (Auto) Lymph % (Auto) [place] % (Auto) Eos % (Auto) Baso % (Auto) Neut # (Auto) Lymph # (Auto) [place] # (Auto) Eos # (Auto) Baso # (Auto) WBC Differential Seg Neuts % (Manual) Band Neuts % (Manual) Lymphocytes % (Manual) Monocytes % (Manual) Eosinophils % (Manual) Metamyelocytes % (Man) Myelocytes % (Man) Abs Neuts (Manual) Nucleated RBCs/100 WBC Differential Comment Toxic Granulation Platelet Estimate Platelet Morphology Tear Drop Cells Ovalocytes [place] Cells Sodium 147 H Potassium 3.9 D Chloride 115 H Carbon Dioxide 22.4 Anion Gap 10 BUN 16 Creatinine 0.55 Estimated GFR Greater than 89 Random Glucose 116 H Calcium 8.2 L Total Bilirubin AST ALT Alkaline Phosphatase Total Protein Albumin Microbiology 04/12/18 09:45 Blood - Peripheral Aerobic Blood Culture - Preliminary No growth in 2 days 04/12/18 09:45 Blood - Peripheral Anaerobic Blood Culture - Preliminary No growth in 2 days 04/12/18 10:00 Blood - Peripheral Aerobic Blood Culture - Preliminary No growth in 2 days 04/12/18 10:00 Blood - Peripheral Anaerobic Blood Culture - Preliminary No growth in 2 days Assessment and Plan - Plan Ms. Sellers is a pleasant 68 year old female with a diagnosis of T2N1M0 ER, [place] positive, Her-2 negative metastatic breast cancer, mets to bones including involvement of C6-C7 vertebral bodies with nerve root impingement. She was admitted to the hospital due to one day duration of fever. She did not have cough, abdominal pain, urinary symptoms. CXR, UA unremarkable. Severe sepsis present on admission - Blood cultures no growth in 2 days. - Currently afebrile. - Discontinued cefepime and azithromycin. - Has been afebrile off antibiotics. Metastatic breast cancer C6-C7 nerve root impingement -Hematology oncology following patient. Patient will likely undergo radiation treatment on 04/16/2018. -Physical therapy for generalized weakness and fariba right arm weakness. She was on home PT. Hypertension - Continue Lasix 40 mg daily, Lisinopril 5 mg twice daily and metoprolol 25 mg daily. Full code. Lovenox.
[2018-04-15] MEDS: Enoxaparin Inj 40 MG/0.4 ML Syringe SQ SCH (15:06)
[2018-04-15] MEDS: Temazepam 15 MG Capsule PO PRN (21:08)
[2018-04-16] MEDS: Acetaminophen 325 MG Tablet PO PRN ×2 (04:04→21:24)
--- NOTE | 2018-04-16 07:59 | P.PNONC ---
Subjective Interval history: Ms. Sellers was seen and examined this morning, labs, medications, imaging studies and weekend progress notes reviewed. Subjectively; her major complaint is that of weakness and cough. She reports producing a mostly dry cough with scant clear phlegm. She has remained afebrile since her initial presentation to the hospital. Over the weekend she was treated with diuresis with oral Lasix and reports decrease in edema of her lower extremities. She did require potassium replacement therapy with improvement in her potassium levels on blood work drawn on 04/15/2018. Additionally, the patient reports being able to ambulate and did ambulate yesterday in her room with assistance. This morning she has several questions regarding resumption of systemic therapy and radiation. Objective Vital Signs/Intake & Output: Vital Signs 04/15/18 08:56 04/15/18 11:00 04/15/18 11:59 Temperature 98.2 F 98.5 F Pulse Rate 73 68 73 Respiratory Rate 20 20 Blood Pressure 117/47 L 156/71 H Pulse Oximetry 100 97 04/15/18 14:14 04/15/18 15:00 04/15/18 15:04 Temperature 98.3 F Pulse Rate 63 74 68 Respiratory Rate 17 20 Blood Pressure 121/53 L Pulse Oximetry 99 04/15/18 20:00 04/15/18 20:15 04/15/18 21:24 Temperature 97.8 F Pulse Rate 73 65 71 Respiratory Rate 20 18 Blood Pressure 123/57 L Pulse Oximetry 96 04/16/18 00:00 04/16/18 00:45 04/16/18 04:00 Temperature 97.5 F L 97.9 F Pulse Rate 72 71 71 Respiratory Rate 22 18 Blood Pressure 120/64 125/64 Pulse Oximetry 97 98 04/16/18 04:11 Temperature Pulse Rate 67 Respiratory Rate Blood Pressure Pulse Oximetry Intake & Output 04/15/18 04/16/18 04/16/18 18:59 06:59 18:59 Intake Total 1440 / 1440 360 / 360 Output Total 450 / 450 550 / 550 Balance 990 / 990 -190 / -190 Weight 122.6 kg Intake: Oral 1440 / 1440 360 / 360 Output: Urine 450 / 450 550 / 550 Other: Date of Last Bowel Movement 04/14/18 04/14/18 # Bowel Movements 0 Result Diagrams: 04/15/18 04:30 04/15/18 04:30 Laboratory Results: Laboratory Results - last 24 hr 04/15/18 04:30 WBC Differential Manual diff final Seg Neuts % (Manual) 71 H Band Neuts % (Manual) 8 H Lymphocytes % (Manual) 9 Monocytes % (Manual) 8 Eosinophils % (Manual) 1 Metamyelocytes % (Man) 1 Myelocytes % (Man) 2 H Abs Neuts (Manual) 3.9 Toxic Granulation 1+ H Platelet Estimate Low L Platelet Morphology Normal Tear Drop Cells 1+ H Ovalocytes 1+ H [place] Cells 1+ H Culture Results: Microbiology 04/12/18 09:45 Aerobic Blood Culture - Preliminary Blood - Peripheral No growth in 3 days Anaerobic Blood Culture - Preliminary No growth in 3 days 04/12/18 10:00 Aerobic Blood Culture - Preliminary Blood - Peripheral No growth in 3 days Anaerobic Blood Culture - Preliminary No growth in 3 days Medications: Active Medications Generic Name Dose Route Start Last Admin Trade Name Freq PRN Reason Stop Dose Admin Acetaminophen 650 mg 04/12/18 15:20 04/16/18 04:04 Tylenol PO 650 mg Q4HR PRN Administration Pain Scale 1 To2 orfever>100.4 Albuterol 1 ampul 04/15/18 13:56 04/15/18 21:22 Duoneb Neb (Prn) NEB 1 ampul Q4HR NEB PRN Administration Dyspnea Dexamethasone 4 mg 04/12/18 21:00 04/15/18 21:08 Decadron PO 4 mg BID WILFREDO Administration Enoxaparin Sodium 40 mg 04/12/18 16:00 04/15/18 15:06 Lovenox Inj SQ 40 mg Q24H WILFREDO Administration Furosemide 40 mg 04/12/18 15:16 04/13/18 09:52 Lasix PO 40 mg DAILY PRN Administration Fluid retention Heparin Sodium (Porcine) 250 unit 04/15/18 07:02 04/15/18 09:01 Heparin Central Flush IV.FLUSH 250 unit PRN PRN Administration Flush Infusapot Ketorolac Tromethamine 30 mg 04/12/18 15:20 04/12/18 20:41 Toradol Inj IV.PUSH 04/17/18 15:19 30 mg Q6H PRN Administration PAIN 6-10;IF UNABLE TO TAKE PO Lisinopril 5 mg 04/12/18 21:00 04/15/18 21:08 Prinivil PO 5 mg BID WILFREDO Administration Metoprolol Tartrate 25 mg 04/13/18 09:00 04/15/18 09:01 Lopressor PO 25 mg DAILY WILFREDO Administration Pantoprazole Sodium 40 mg 04/13/18 12:00 04/15/18 09:01 Protonix PO 40 mg DAILY WILFREDO Administration Potassium Phos/Sodium Phos 250 mg 04/14/18 13:00 04/15/18 18:04 K-Phos Neutral PO 250 mg TID WILFREDO Administration Pramipexole Dihydrochloride 1 mg 04/12/18 21:30 04/15/18 21:08 Mirapex PO 1 mg HS WILFREDO Administration Temazepam 15 mg 04/12/18 15:06 04/15/18 21:08 Restoril PO 15 mg HS PRN Administration INSOMNIA Objective Remarks: GENERAL: Elderly lady, sitting up in bed, cushingoid appearance, no acute distress. Speaks to me in full sentences. SKIN: Warm and dry. HEAD: Normocephalic. EYES: No scleral icterus. No injection or drainage. NECK: Supple, trachea midline. No JVD or lymphadenopathy. LYMPHATIC: No adenopathy. CARDIOVASCULAR: Regular rate and rhythm without murmurs. RESPIRATORY: Decreased bibasilar breath sounds, fine inspiratory crepitus on inspiration, occasional cough. No Rales or rhonchi or wheezing. GASTROINTESTINAL: Abdomen soft, non-tender, nondistended. EXTREMITIES: No cyanosis, no edema noted today of the lower extremities.. MUSCULOSKELETAL: Adequate muscle tone. NEUROLOGICAL: Weakness on flexion of the right arm but otherwise without focal sensorimotor deficits. PSYCHIATRIC: Appropriate mood and affect; insight and judgment normal. Assessment/Plan (1) Sepsis Code(s): A41.9 - Sepsis, unspecified organism Status: Acute (2) Metastatic breast cancer Code(s): C50.919 - Malignant neoplasm of unspecified site of unspecified female breast Status: Chronic - Plan Ms. Sellers is a 68-year old female with a diagnosis of metastatic breast carcinoma, her disease is estrogen and progesterone receptor positive and HER-2 negative. She is presently on palliative systemic therapy with Taxol and is concomitantly undergoing palliative radiation to her extensive vertebral body metastatic disease which is also symptomatic. The patient has thus far received 3 weekly doses of Taxol with her most recent dose 2 weeks ago. She has 6 fractions of radiation remaining and radiation has been resumed since she was hospitalized (is being delivered as an inpatient). Although the patient was admitted with sepsis and elevated lactic acid levels last week, she has been afebrile since hospitalization. Plan: 1. Sepsis. Now afebrile, all cultures remain negative and she is now off antibiotics as well. 2. Fevers, resolved at this time. continue to monitor for fevers, draw blood cultures and notify MD per policy, for fever 100.4 or greater. 3. Metastatic breast cancer. Continue radiation per Dr. Christensen. Palliative systemic chemotherapy will be resumed in the outpatient setting. 4. Hypokalemia: Was adequately treated with potassium replacement therapy. Disposition: Discharge home when clinically stable, the patient felt short of breath this morning and required oxygen supplementation. On clinical exam it appears she may have some atelectatic changes over the bases of her lungs. I have encouraged her to sit up and to use incentive spirometer. Clinically she appears to be doing well on my assessment. (1) Sepsis Qualifiers: Sepsis type: sepsis due to unspecified organism Qualified Code(s): A41.9 - Sepsis, unspecified organism
--- NOTE | 2018-04-16 09:12 | P.PN ---
Subjective Interval history: Follow up for fever of unknown origin in a patient with history of metastatic breast cancer. Patient is doing well, afebrile and on room air. However, she occasionally gets short of breath. She takes Lasix at home PRN. Physical Exam Vital signs: Vital Signs 04/15/18 11:00 04/15/18 11:59 04/15/18 14:14 Temperature 98.5 F Pulse Rate 68 73 63 Respiratory Rate 20 17 Blood Pressure 156/71 H Pulse Oximetry 97 04/15/18 15:00 04/15/18 15:04 04/15/18 20:00 Temperature 98.3 F 97.8 F Pulse Rate 74 68 73 Respiratory Rate 20 20 Blood Pressure 121/53 L 123/57 L Pulse Oximetry 99 96 04/15/18 20:15 04/15/18 21:24 04/16/18 00:00 Temperature 97.5 F L Pulse Rate 65 71 72 Respiratory Rate 18 22 Blood Pressure 120/64 Pulse Oximetry 97 04/16/18 00:45 04/16/18 04:00 04/16/18 04:11 Temperature 97.9 F Pulse Rate 71 71 67 Respiratory Rate 18 Blood Pressure 125/64 Pulse Oximetry 98 04/16/18 08:26 Temperature 97.7 F Pulse Rate 87 Respiratory Rate 24 Blood Pressure 171/85 H Pulse Oximetry 100 Intake & Output 04/15/18 04/16/18 04/16/18 18:59 06:59 18:59 Intake Total 1440 / 1440 360 / 360 Output Total 450 / 450 550 / 550 Balance 990 / 990 -190 / -190 Weight 122.6 kg Intake: Oral 1440 / 1440 360 / 360 Output: Urine 450 / 450 550 / 550 Other: Date of Last Bowel Movement 04/14/18 04/14/18 # Bowel Movements 0 Narrative: GENERAL: AOX3 NAD SKIN: Warm and dry. HEAD: Normocephalic. EYES: No scleral icterus. No injection or drainage. NECK: Supple, trachea midline. No JVD or lymphadenopathy. CARDIOVASCULAR: Regular rate and rhythm without murmurs, gallops, or rubs. RESPIRATORY: Breath sounds equal bilaterally. No accessory muscle use. Mild bibasilar crackles. GASTROINTESTINAL: Abdomen soft, non-tender, nondistended. MUSCULOSKELETAL: No cyanosis, or edema. Unable to lift up right arm. BACK: Nontender without obvious deformity. No CVA tenderness. Results - Labs CBC & Chem 7: 04/15/18 04:30 04/15/18 04:30 Laboratory Results - last 24 hr 04/15/18 04:30 WBC Differential Manual diff final Seg Neuts % (Manual) 71 H Band Neuts % (Manual) 8 H Lymphocytes % (Manual) 9 Monocytes % (Manual) 8 Eosinophils % (Manual) 1 Metamyelocytes % (Man) 1 Myelocytes % (Man) 2 H Abs Neuts (Manual) 3.9 Toxic Granulation 1+ H Platelet Estimate Low L Platelet Morphology Normal Tear Drop Cells 1+ H Ovalocytes 1+ H [place] Cells 1+ H Microbiology 04/12/18 09:45 Blood - Peripheral Aerobic Blood Culture - Preliminary No growth in 3 days 04/12/18 09:45 Blood - Peripheral Anaerobic Blood Culture - Preliminary No growth in 3 days 04/12/18 10:00 Blood - Peripheral Aerobic Blood Culture - Preliminary No growth in 3 days 04/12/18 10:00 Blood - Peripheral Anaerobic Blood Culture - Preliminary No growth in 3 days Assessment and Plan - Plan Ms. Sellers is a pleasant 68 year old female with a diagnosis of [id number] ER, [place] positive, Her-2 negative metastatic breast cancer, mets to bones including involvement of C6-C7 vertebral bodies with nerve root impingement. She was admitted to the hospital due to one day duration of fever. She did not have cough, abdominal pain, urinary symptoms. CXR, UA unremarkable. Severe sepsis present on admission (resolved) Fever of unknown origin - Blood cultures no growth in 3 days. - Currently afebrile. - Discontinued cefepime and azithromycin. - Has been afebrile off antibiotics. Dyspnea - Currently on room air but bibasilar crackles noted. She does have 1-2+ edema in lower ext as well - Will give her one dose of Lasix IV 40mg this AM then continue Lasix 20mg IV BID. - If she feels better after radiation today, she may go home today or perhaps tomorrow 04/17/2018 - Consider switching outpatient med Lasix ==> Torsemide Metastatic breast cancer C6-C7 nerve root impingement -Hematology oncology following patient. Patient will likely undergo radiation treatment on 04/16/2018. -Physical therapy for generalized weakness and fariba right arm weakness. She was on home PT. Hypertension - Lisinopril 5 mg twice daily and metoprolol 25 mg daily. Full code. Lovenox.
[2018-04-16] MEDS: Metoprolol Tartrate 25 MG Tablet PO SCH (09:31)
[2018-04-16] MEDS: Potassium Phos/Sodium Phos 250 MG Tablet PO SCH ×3 (09:31→17:19)
[2018-04-16] MEDS: Lisinopril 5 MG Tablet PO SCH ×2 (09:32→21:19)
--- NOTE | 2018-04-16 10:49 | XR ---
EXAM DATE: 04/16/2018 10:46 AM EDT AGE/SEX: 68 years / Female INDICATIONS: Dyspnea. CLINICAL DATA: This is the patient's initial encounter. Patient reports that signs and symptoms have been present for 1 day and indicates a pain score of 0/10. MEDICAL/SURGICAL HISTORY: . Metastatic breast cancer . left breast surgery, currently having r adiation and chemotherapy [place] [facility] [place]. . FINDINGS: [id number] in good position. Minimal cardiomegaly with mild interstitial prominence. No alveolar consolidation pleural effusion or pneumothorax. CONCLUSION: [id number] in good position. A mild interstitial prominence. Electronically signed by: Trung Trinidad MD 04/16/2018 10:48 AM EDT
--- NOTE | 2018-04-16 15:07 | P.DCO ---
- Physical Therapy Order: Evaluate and treat, Improve ambulation, Strength and gait training - Occupational Therapy Order: Evaluate and treat, Improve ADL, Gross motor coordination, Fine motor coordination - Home Health Nursing Order: Medical education, Signs/symptoms of disease process, Nursing assessment with vital signs - Color Technician Order: To evaluate: Living conditions/environment, Support services Order: To provide: Long range planning, Community services - Certification I have seen patient Lety Sellers on 04/16/18. My clinical findings support the need for the requested home health care services because: Limited mobility due to disease progression, Patient has SOB, Deconditioned with increased weakness, Limited ability to care for self, Need for psychosocial assistance, High risk of falls, Infection with risk of complications I certify that my clinical findings support that this patient is homebound because: Unsteady gait/balance, Unsafe to leave home unassisted, Need for psychosocial assistance, Non-ambulatory: confined to bed or chair, Unable to use public transportation
[2018-04-16] MEDS: Enoxaparin Inj 40 MG/0.4 ML Syringe SQ SCH (17:19)
[2018-04-16] MEDS: Temazepam 15 MG Capsule PO PRN (21:25)
[2018-04-17 05:43] LABS: Baso % (Auto) 0.2 % (0.0-2.0); Eos # (Auto) 0.1 th/mm3 (0.0-0.4); Eos % (Auto) 1.8 % (0.0-4.0); Hematocrit 30.5 % (35.0-46.0); Hemoglobin 10.1 gm/dL (11.6-15.3); Lymph # (Auto) 0.5 th/mm3 (1.0-4.8); Lymph % (Auto) 7.6 % (9.0-44.0); Mean Corpuscular Hemoglobin 28.6 pg (27.0-34.0); Mean Corpuscular Volume 86.5 fL (80.0-100.0); Mean Platelet Volume 8.6 fL (7.0-11.0); Mono # (Auto) 0.8 th/mm3 (0.0-0.9); Mono % (Auto) 12.3 % (0.0-8.0); Neut # (Auto) 5.4 th/mm3 (1.8-7.7); Neut % (Auto) 78.1 % (16.0-70.0); Platelet Count 113 th/mm3 (150-450); Red Blood Count 3.53 mil/mm3 (4.00-5.30); Red Cell Distribution Width 24.9 % (11.6-17.2); White Blood Count 6.9 th/mm3 (4.0-11.0)
[2018-04-17 06:04] LABS: Alanine Aminotransferase 30 U/L (10-53); Albumin 2.5 g/dL (3.4-5.0); Anion Gap 10 meq/L (5-15); Aspartate Aminotransferase 7 U/L (15-37); Blood Urea Nitrogen 14 mg/dL (7-18); Calcium 8.2 mg/dL (8.5-10.1); Carbon Dioxide 25.6 meq/L (21.0-32.0); Chloride 108 meq/L (98-107); Glomerular Filtration Rate Greater Than 89 mL/min (>89); Glucose,Random 110 mg/dL (74-106); Potassium 3.9 meq/L (3.5-5.1); Sodium 144 meq/L (136-145)
[2018-04-17 06:07] LABS: Alkaline Phosphatase 114 U/L (45-117); Total Protein 5.5 g/dL (6.4-8.2)
[2018-04-17 07:16] LABS: Acanthocytes Occ; Eosinophils 2 % (0-4); Lymphocytes 15 % (9-44); Metamyelocytes 1 % (0-1); Monocytes 6 % (0-8); Myelocytes 3 % (0-0); Ovalocytes 1+; Platelet Morphology Normal (Normal); Promyelocyte 2 % (0-0); Tallied Nucleated RBC 1 (0-0)
[2018-04-17] MEDS: Metoprolol Tartrate 25 MG Tablet PO SCH (09:15)
[2018-04-17] MEDS: Potassium Phos/Sodium Phos 250 MG Tablet PO SCH ×3 (09:15→18:01)
[2018-04-17] MEDS: Lisinopril 5 MG Tablet PO SCH ×2 (09:16→21:24)
[2018-04-17] MEDS: Heparin Central Flush 100 UNIT/ML 5 ML Vial IV.FLUSH PRN ×2 (09:25→17:05)
--- NOTE | 2018-04-17 15:10 | P.PNONC ---
Subjective Interval history: The patient is lying in bed, slightly dyspneic with speaking. She reports her bilateral ankle edema is improved. Objective Vital Signs/Intake & Output: Vital Signs 04/16/18 20:08 04/16/18 20:37 04/16/18 21:00 Temperature 98.9 F 97.6 F Pulse Rate 77 77 67 Respiratory Rate 20 20 19 Blood Pressure 153/70 H 123/57 L Pulse Oximetry 98 96 04/16/18 22:37 04/17/18 00:00 04/17/18 04:00 Temperature 98.4 F Pulse Rate 67 79 Respiratory Rate 19 20 Blood Pressure 122/54 L Pulse Oximetry 96 04/17/18 04:46 04/17/18 07:07 04/17/18 08:00 Temperature 98.2 F 98.2 F Pulse Rate 70 71 75 Respiratory Rate 19 18 Blood Pressure 156/75 H 128/46 L Pulse Oximetry 96 04/17/18 11:28 04/17/18 11:34 Temperature 97.8 F Pulse Rate 82 90 Respiratory Rate 20 Blood Pressure 154/93 H Pulse Oximetry 96 Intake & Output 04/16/18 04/17/18 04/17/18 18:59 06:59 18:59 Intake Total 980 / 980 600 / 600 Output Total 2100 / 2100 800 / 800 Balance -1120 / -1120 -200 / -200 Intake: Oral 980 / 980 600 / 600 Output: Urine 2100 / 2100 800 / 800 Other: Date of Last Bowel Movement 04/16/18 04/16/18 Result Diagrams: 04/17/18 04:50 04/17/18 04:50 Laboratory Results: Laboratory Results - last 24 hr 04/17/18 04/17/18 04:50 04:50 WBC 6.9 RBC 3.53 L Hgb 10.1 L Hct 30.5 L MCV 86.5 MCH 28.6 MCHC 33.0 RDW 24.9 H Plt Count 113 L MPV 8.6 Prelim Diff (Auto) Slide review pending Neut % (Auto) 78.1 H Lymph % (Auto) 7.6 L [place] % (Auto) 12.3 H Eos % (Auto) 1.8 Baso % (Auto) 0.2 Neut # (Auto) 5.4 Lymph # (Auto) 0.5 L [place] # (Auto) 0.8 Eos # (Auto) 0.1 Baso # (Auto) 0.0 WBC Differential Manual diff final Seg Neuts % (Manual) 65 Band Neuts % (Manual) 6 Lymphocytes % (Manual) 15 Monocytes % (Manual) 6 Eosinophils % (Manual) 2 Metamyelocytes % (Man) 1 Myelocytes % (Man) 3 H Promyelocytes % (Man) 2 H Abs Neuts (Manual) 5.3 Nucleated RBCs/100 WBC 1 H Differential Comment . Platelet Estimate Low L Platelet Morphology Normal Ovalocytes 1+ H Acanthocytes (Spur) Occ H Sodium 144 Potassium 3.9 Chloride 108 H Carbon Dioxide 25.6 Anion Gap 10 BUN 14 Creatinine 0.51 Estimated GFR Greater than 89 Random Glucose 110 H Calcium 8.2 L Total Bilirubin 0.4 AST 7 L ALT 30 Alkaline Phosphatase 114 Total Protein 5.5 L Albumin 2.5 L Culture Results: Microbiology 04/12/18 09:45 Aerobic Blood Culture - Final Blood - Peripheral No growth in 5 days Anaerobic Blood Culture - Final No growth in 5 days 04/12/18 10:00 Aerobic Blood Culture - Final Blood - Peripheral No growth in 5 days Anaerobic Blood Culture - Final No growth in 5 days Medications: Active Medications Generic Name Dose Route Start Last Admin Trade Name Freq PRN Reason Stop Dose Admin Acetaminophen 650 mg 04/12/18 15:20 04/16/18 21:24 Tylenol PO 650 mg Q4HR PRN Administration Pain Scale 1 To2 orfever>100.4 Albuterol 1 ampul 04/15/18 13:56 04/16/18 20:34 Duoneb Neb (Prn) NEB 1 ampul Q4HR NEB PRN Administration Dyspnea Dexamethasone 4 mg 04/12/18 21:00 04/17/18 09:16 Decadron PO 4 mg BID WILFREDO Administration Enoxaparin Sodium 40 mg 04/12/18 16:00 04/16/18 17:19 Lovenox Inj SQ 40 mg Q24H WILFREDO Administration Furosemide 20 mg 04/16/18 18:00 04/17/18 12:48 Lasix Inj IV.PUSH 20 mg BID@0900,1800 WILFREDO Administration Heparin Sodium (Porcine) 500 unit 04/15/18 07:02 04/17/18 09:25 Heparin Central Flush IV.FLUSH 500 unit PRN PRN Administration Flush infusaport Heparin Sodium (Porcine) 250 unit 04/15/18 07:02 04/15/18 09:01 Heparin Central Flush IV.FLUSH 250 unit PRN PRN Administration Flush Infusapot Ketorolac Tromethamine 15 mg 04/12/18 15:20 04/16/18 13:20 Toradol Inj IV.PUSH 04/17/18 15:19 15 mg Q6H PRN Administration PAIN 3-5; IF UABLE TO TAKE PO Ketorolac Tromethamine 30 mg 04/12/18 15:20 04/12/18 20:41 Toradol Inj IV.PUSH 04/17/18 15:19 30 mg Q6H PRN Administration PAIN 6-10;IF UNABLE TO TAKE PO Lisinopril 5 mg 04/12/18 21:00 04/17/18 09:16 Prinivil PO 5 mg BID WILFREDO Administration Metoprolol Tartrate 25 mg 04/13/18 09:00 04/17/18 09:15 Lopressor PO 25 mg DAILY WILFREDO Administration Pantoprazole Sodium 40 mg 04/13/18 12:00 04/17/18 09:16 Protonix PO 40 mg DAILY WILFREDO Administration Potassium Phos/Sodium Phos 250 mg 04/14/18 13:00 04/17/18 12:45 K-Phos Neutral PO 250 mg TID WILFREDO Administration Pramipexole Dihydrochloride 1 mg 04/12/18 21:30 04/16/18 21:19 Mirapex PO 1 mg HS WILFREDO Administration Sodium Chloride 5 ml 04/15/18 07:02 04/16/18 09:32 Ns Flush IV.FLUSH 2 ml PRN PRN Administration Flush Infusaport Temazepam 15 mg 04/12/18 15:06 04/16/18 21:25 Restoril PO 15 mg HS PRN Administration INSOMNIA Objective Remarks: GENERAL: Well-nourished, well-developed patient. Lying in bed, mildly dyspneic with speech. SKIN: Pale, warm and dry. Port access to right chest wall. HEAD: Normocephalic. EYES: No scleral icterus. No injection or drainage. NECK: Supple, trachea midline. CARDIOVASCULAR: Regular rate and rhythm without murmurs. RESPIRATORY: Posterior breath sounds equal bilaterally. No accessory muscle use. GASTROINTESTINAL: Abdomen soft, non-tender, nondistended. EXTREMITIES: No cyanosis. 2+ bilateral ankle edema. MUSCULOSKELETAL: Adequate muscle tone. Decreased ROM RUE. NEUROLOGICAL: No obvious focal deficit. Awake, alert, and oriented x3. PSYCHIATRIC: Appropriate mood and affect; insight and judgment normal. Assessment/Plan (1) Sepsis Code(s): A41.9 - Sepsis, unspecified organism Status: Acute (2) Metastatic breast cancer Code(s): C50.919 - Malignant neoplasm of unspecified site of unspecified female breast Status: Chronic - Plan Ms. Sellers is a 68-year old female with a diagnosis of metastatic breast carcinoma, her disease is estrogen and progesterone receptor positive and HER-2 negative. She is presently on palliative systemic therapy with Taxol and is concomitantly undergoing palliative radiation to her extensive vertebral body metastatic disease which is also symptomatic. The patient has thus far received 3 weekly doses of Taxol with her most recent dose 2 weeks ago. She has 6 fractions of radiation remaining and radiation has been resumed since she was hospitalized (is being delivered as an inpatient). Although the patient was admitted with sepsis and elevated lactic acid levels last week, she has been afebrile since hospitalization. Plan: 1. Sepsis. Continues to be afebrile, all cultures remain negative and she is now off antibiotics. 2. Fevers, resolved at this time. 3. Metastatic breast cancer. Continue radiation per Dr. Christensen. Palliative systemic chemotherapy will be resumed in the outpatient setting. 4. Hypokalemia: Was adequately treated with potassium replacement therapy. 5. Encouraged patient to continue to use her incentive spirometer. From an oncology standpoint, she may be discharged home when she is clinically stable. (1) Sepsis Qualifiers: Sepsis type: sepsis due to unspecified organism Qualified Code(s): A41.9 - Sepsis, unspecified organism
--- NOTE | 2018-04-17 16:58 | P.PNIM ---
Subjective Interval history: 7-9 Follow up for fever of unknown origin in a patient with history of metastatic breast cancer. Patient is doing well, afebrile and on room air. However, she occasionally gets short of breath. She takes Lasix at home PRN. 7-10 TO HAVE RADIATION TOMORROW FINAL DAY OF RADIATION TOMORROW DW RN AND PT AND CM BREATHING A LITTLE BETTER TODAY STILL DIURESING WILL NEED PO MEDS AT DC AM LABS Physical Exam Vital signs: Vital Signs 04/16/18 20:08 04/16/18 20:37 04/16/18 21:00 Temperature 98.9 F 97.6 F Pulse Rate 77 77 67 Respiratory Rate 20 20 19 Blood Pressure 153/70 H 123/57 L Pulse Oximetry 98 96 04/16/18 22:37 04/17/18 00:00 04/17/18 04:00 Temperature 98.4 F Pulse Rate 67 79 Respiratory Rate 19 20 Blood Pressure 122/54 L Pulse Oximetry 96 04/17/18 04:46 04/17/18 07:07 04/17/18 08:00 Temperature 98.2 F 98.2 F Pulse Rate 70 71 75 Respiratory Rate 19 18 Blood Pressure 156/75 H 128/46 L Pulse Oximetry 96 04/17/18 11:28 04/17/18 11:34 04/17/18 16:13 Temperature 97.8 F Pulse Rate 82 90 65 Respiratory Rate 20 Blood Pressure 154/93 H Pulse Oximetry 96 Intake & Output 04/16/18 04/17/18 04/17/18 18:59 06:59 18:59 Intake Total 980 / 980 600 / 600 Output Total 2100 / 2100 800 / 800 Balance -1120 / -1120 -200 / -200 Intake: Oral 980 / 980 600 / 600 Output: Urine 2099 / 2100 800 / 800 Other: Date of Last Bowel Movement 04/16/18 04/16/18 Narrative: GENERAL: AOX3 talkative and cooperative SKIN: Warm and dry. HEAD: Normocephalic. EYES: No scleral icterus. No injection or drainage. Oropharynx is clear tongue is midline NECK: Supple, trachea midline. No JVD or lymphadenopathy. CARDIOVASCULAR: Regular rate and rhythm without murmurs, gallops, or rubs. S1- S2 no S3 or S4 RESPIRATORY: Breath sounds equal bilaterally. No accessory muscle use. Mild bibasilar crackles. GASTROINTESTINAL: Abdomen soft, non-tender, nondistended. MUSCULOSKELETAL: No cyanosis, Unable to lift up right arm. +1 lower extremity edema BACK: Nontender without obvious deformity. No CVA tenderness. Insight and judgment is good Mood and behaviors appropriate Results - Labs CBC & Chem 7: 04/17/18 04:50 04/17/18 04:50 Laboratory Results - last 24 hr 04/17/18 04/17/18 04:50 04:50 WBC 6.9 RBC 3.53 L Hgb 10.1 L Hct 30.5 L MCV 86.5 MCH 28.6 MCHC 33.0 RDW 24.9 H Plt Count 113 L MPV 8.6 Prelim Diff (Auto) Slide review pending Neut % (Auto) 78.1 H Lymph % (Auto) 7.6 L [place] % (Auto) 12.3 H Eos % (Auto) 1.8 Baso % (Auto) 0.2 Neut # (Auto) 5.4 Lymph # (Auto) 0.5 L [place] # (Auto) 0.8 Eos # (Auto) 0.1 Baso # (Auto) 0.0 WBC Differential Manual diff final Seg Neuts % (Manual) 65 Band Neuts % (Manual) 6 Lymphocytes % (Manual) 15 Monocytes % (Manual) 6 Eosinophils % (Manual) 2 Metamyelocytes % (Man) 1 Myelocytes % (Man) 3 H Promyelocytes % (Man) 2 H Abs Neuts (Manual) 5.3 Nucleated RBCs/100 WBC 1 H Differential Comment . Platelet Estimate Low L Platelet Morphology Normal Ovalocytes 1+ H Acanthocytes (Spur) Occ H Sodium 144 Potassium 3.9 Chloride 108 H Carbon Dioxide 25.6 Anion Gap 10 BUN 14 Creatinine 0.51 Estimated GFR Greater than 89 Random Glucose 110 H Calcium 8.2 L Total Bilirubin 0.4 AST 7 L ALT 30 Alkaline Phosphatase 114 Total Protein 5.5 L Albumin 2.5 L Microbiology 04/12/18 09:45 Blood - Peripheral Aerobic Blood Culture - Final No growth in 5 days 04/12/18 09:45 Blood - Peripheral Anaerobic Blood Culture - Final No growth in 5 days 04/12/18 10:00 Blood - Peripheral Aerobic Blood Culture - Final No growth in 5 days 04/12/18 10:00 Blood - Peripheral Anaerobic Blood Culture - Final No growth in 5 days - Imaging ITS Impressions Chest X-Ray 04/12/18 09:49 CONCLUSION: No new or acute pulmonary infiltrates. Chest X-Ray 04/16/18 00:00 CONCLUSION: [id number] in good position. A mild interstitial prominence. - Procedures RADIATION Assessment and Plan - Assessment (1) Fever of undetermined origin Code(s): R50.9 - Fever, unspecified Status: Acute (2) Metastatic breast cancer Code(s): C50.919 - Malignant neoplasm of unspecified site of unspecified female breast Status: Chronic - Plan Ms. Sellers is a pleasant 68 year old female with a diagnosis of T2N1M0 ER, [place] positive, Her-2 negative metastatic breast cancer, mets to bones including involvement of C6-C7 vertebral bodies with nerve root impingement. She was admitted to the hospital due to one day duration of fever. She did not have cough, abdominal pain, urinary symptoms. CXR, UA unremarkable. Severe sepsis present on admission (resolved) Fever of unknown origin - Blood cultures no growth in 3 days. - Currently afebrile. - Discontinued cefepime and azithromycin. - Has been afebrile off antibiotics. Dyspnea - Currently on room air but bibasilar crackles noted. She does have 1-+ edema in lower ext as well - Will give her one dose of Lasix IV 40mg this AM then continue Lasix 20mg IV BID. - If she feels better after radiation today, she may go home today or perhaps tomorrow 04/18/2018 - Consider switching outpatient med Lasix ==> Torsemide Metastatic breast cancer C6-C7 nerve root impingement -Hematology oncology following patient. Patient will likely undergo radiation treatment on 04/18/2018. -Physical therapy for generalized weakness and fariba right arm weakness. She was on home PT. Hypertension - Lisinopril 5 mg twice daily and metoprolol 25 mg daily. [facility] AT DC AM LABS Full code. Lovenox. Code Status: FULL CODE Discussed Condition With: RN AND PT AND CM AND ONCOLOGY Discharge Planning: HOPEFULLY HOME WITH [facility] ON 04-18
[2018-04-17] MEDS: Enoxaparin Inj 40 MG/0.4 ML Syringe SQ SCH (17:05)
[2018-04-17] MEDS ORDERED: Gadobutrol PF 10 MMOL/10 ML Vial (for RAD) IV.SIG ONE (20:47)
[2018-04-17] MEDS: Temazepam 15 MG Capsule PO PRN (21:28)
--- NOTE | 2018-04-17 21:28 | MR ---
EXAM DATE: 04/17/2018 8:51 PM EDT AGE/SEX: 68 years / Female INDICATIONS: Metastatic disease. CLINICAL DATA: This is the patient's subsequent encounter. Patient reports that signs and symptoms h ave been present for 4 - 6 days and indicates a pain score of 3/10. MEDICAL/SURGICAL HISTORY: Carcinoma, breast. Metastatic disease. Mastectomy, left. Total knee replacement, left. Total knee replacement, right. ORIF Left femur. COMPARISON: No prior exams available for comparison. TECHNIQUE: Multiplanar, multisequence MRI examination of the lumbar spine was performed without and with 12 ml Gadavist (gadobutrol) contrast as a single exam dose. FINDINGS: The most caudal-appearing lumbar vertebra is numbered as L5. Vertebra: Subcentimeter bone lesions are seen from T12 through L5 vertebral bodies. The left pedicle and the posterior spinous process of T10 also have similar size lesions. There is a 17 mm lesion of S2. No fracture or acute malalignment. Conus: Normal level and configuration. Post Contrast: No abnormal areas of contrast enhancement are seen. T12-L1: The thecal sac has a normal diameter. No evidence of disc bulge or protrusion. The neural foramina are patent bilaterally. L1-L2: The disc is desiccated and has mild loss of height. Grade 1, degenerative retrolisthesis. Sm all, broad/diffuse disc osteophyte complex and mild to moderate bilateral facet osteoarthritis. There is mild bilateral foraminal stenosis. L2-L3: The disc is desiccated and has mild loss of height. Grade 1 degenerative-appearing retrolist hesis. There is a small to moderate, broad/diffuse disc protrusion and moderate bilateral facet osteo arthritis. There is mild spinal stenosis and mild bilateral foraminal stenosis. L3-L4: The disc is desiccated and has mild loss of height. There is diffuse bulging of the disc aretha ulus and moderate to severe bilateral facet osteoarthritis. There is mild bilateral foraminal stenosi s. L4-L5: The disc is slightly desiccated. No significant loss of height. A couple millimeters of dege nerative anterolisthesis present. There is severe bilateral facet osteoarthritis. No significant fora avel or spinal stenosis. L5-S1: Disc height and hydration within normal limits. Slight bulging of the annulus. Moderate bila teral facet osteoarthritis. No foraminal or spinal stenosis. CONCLUSION: 1. One or two subcentimeter metastatic bone lesion demonstrated of each lumbar vertebral body and al so T10, T11 and T12 as well. There is a slightly larger lesion seen of the S2 vertebral body. No path ologic fracture. 2. Multilevel degenerative changes as above without high-grade foraminal or spinal stenosis demonstr ated. Electronically signed by: Greg Delacruz MD 04/17/2018 9:27 PM EDT
--- NOTE | 2018-04-17 21:39 | MR ---
EXAM DATE: 04/17/2018 8:59 PM EDT AGE/SEX: 68 years / Female INDICATIONS: Metastatic disease. CLINICAL DATA: This is the patient's subsequent encounter. Patient reports that signs and symptoms h ave been present for 4 - 6 days and indicates a pain score of 4/10. MEDICAL/SURGICAL HISTORY: Carcinoma, breast. Metastatic disease. Mastectomy, left. Total knee replacement, left. Total knee replacement, right. ORIF left femur. COMPARISON: POI, MR HIP W AND W/O CONTRAST, LEFT, 12/06/2017. POI, CT HIP W/O CONTRAST, LEFT, 11/15/2017. . TECHNIQUE: Multiplanar, multisequence MRI examination of the pelvis was performed with 12 ml Gadav ist (gadobutrol) contrast and without contrast as a single exam dose. FINDINGS: Scattered bone lesions of the pelvis and proximal left femur again noted and all measure slightly lar alex in the interim. The lesion of the left iliac wing currently measures approximate 16 mm in size. T he lesions of the left ischial tuberosity are approximately 15 and 8 mm in size currently. The subcor tical lesion of the left lesser trochanter is approximately 15 mm in size. All of these are a few mil limeters larger than before. There is a 9 mm lesion of the left side of the sacrum that is better vis ualized today but not new, approximately 2 mm larger. There is a 7 mm lesion of the left iliac wing t hat don't clearly see on the prior study. No pathologic fractures. Mild degenerative changes are seen of the right hip with small subchondral c ysts. I don't see a definite lesion of the right femur. CONCLUSION: Modest worsening bony metastatic disease of the pelvis and proximal left femur as above. No pathologic fracture or other acute complication demonstrated. Electronically signed by: Greg Delacruz MD 04/17/2018 9:38 PM EDT
[2018-04-18 05:21] LABS: Baso % (Auto) 0.2 % (0.0-2.0); Eos # (Auto) 0.1 th/mm3 (0.0-0.4); Eos % (Auto) 1.6 % (0.0-4.0); Hematocrit 32.6 % (35.0-46.0); Hemoglobin 10.7 gm/dL (11.6-15.3); Lymph # (Auto) 0.7 th/mm3 (1.0-4.8); Lymph % (Auto) 7.7 % (9.0-44.0); Mean Corpuscular HGB Conc 32.9 % (32.0-36.0); Mean Corpuscular Hemoglobin 28.7 pg (27.0-34.0); Mean Platelet Volume 8.9 fL (7.0-11.0); Mono # (Auto) 0.7 th/mm3 (0.0-0.9); Mono % (Auto) 8.3 % (0.0-8.0); Neut # (Auto) 7.1 th/mm3 (1.8-7.7); Neut % (Auto) 82.2 % (16.0-70.0); Platelet Count 134 th/mm3 (150-450); Red Blood Count 3.74 mil/mm3 (4.00-5.30); Red Cell Distribution Width 25.4 % (11.6-17.2); White Blood Count 8.6 th/mm3 (4.0-11.0)
[2018-04-18 05:42] LABS: Albumin 2.5 g/dL (3.4-5.0); Anion Gap 11 meq/L (5-15); Aspartate Aminotransferase 9 U/L (15-37); Blood Urea Nitrogen 16 mg/dL (7-18); Calcium 8.4 mg/dL (8.5-10.1); Carbon Dioxide 22.3 meq/L (21.0-32.0); Chloride 108 meq/L (98-107); Glomerular Filtration Rate 88 mL/min (>89); Glucose,Random 133 mg/dL (74-106); Magnesium 2.2 mg/dL (1.5-2.5); Potassium 3.9 meq/L (3.5-5.1); Sodium 141 meq/L (136-145)
[2018-04-18 05:43] LABS: Alanine Aminotransferase 33 U/L (10-53); Phosphorus 2.4 mg/dL (2.5-4.9)
[2018-04-18 05:52] LABS: Alkaline Phosphatase 127 U/L (45-117); Free T4 (Free Thyroxine) 0.91 ng/dL (0.76-1.46); Thyroid Stimulating Hormone 0.057 uIU/mL (0.358-3.740); Total Protein 5.9 g/dL (6.4-8.2)
[2018-04-18 07:35] LABS: Eosinophils 1 % (0-4); Lymphocytes 11 % (9-44); Metamyelocytes 1 % (0-1); Monocytes 6 % (0-8); Myelocytes 4 % (0-0); Promyelocyte 1 % (0-0)
[2018-04-18 07:36] LABS: Ovalocytes 1+; Platelet Morphology Normal (Normal); Tear Drop Cells 1+
[2018-04-18] MEDS: Potassium Phos/Sodium Phos 250 MG Tablet PO SCH (08:47)
[2018-04-18] MEDS: Metoprolol Tartrate 25 MG Tablet PO SCH (08:47)
[2018-04-18] MEDS: Lisinopril 5 MG Tablet PO SCH (08:47)
[2018-04-18] MEDS: Heparin Central Flush 100 UNIT/ML 5 ML Vial IV.FLUSH PRN (11:38)
--- NOTE | 2018-04-18 11:56 | P.PNIM ---
Subjective Interval history: 04-16 Follow up for fever of unknown origin in a patient with history of metastatic breast cancer. Patient is doing well, afebrile and on room air. However, she occasionally gets short of breath. She takes Lasix at home PRN. 04-17 TO HAVE RADIATION TOMORROW FINAL DAY OF RADIATION TOMORROW DW RN AND PT AND CM BREATHING A LITTLE BETTER TODAY STILL DIURESING WILL NEED PO MEDS AT DC AM LABS 04-18 had final radiation today WANTS TO GO HOME DW RN AND PT C WANTS TRAMADOL AND RESTORIL FOLLOW UP LETICIA AND PCP Physical Exam Vital signs: Vital Signs 04/17/18 16:00 04/17/18 16:13 04/17/18 20:00 Temperature 98.1 F 97.8 F Pulse Rate 70 65 73 Respiratory Rate 18 19 Blood Pressure 120/66 146/65 H Pulse Oximetry 96 96 04/18/18 00:00 04/18/18 04:00 04/18/18 07:00 Temperature 98.7 F 97.8 F Pulse Rate 75 71 61 Respiratory Rate 17 16 Blood Pressure 144/57 H 159/79 H Pulse Oximetry 98 97 04/18/18 07:44 04/18/18 11:36 Temperature 98.4 F 97.6 F Pulse Rate 63 72 Respiratory Rate 18 18 Blood Pressure 165/74 H 139/73 Pulse Oximetry 98 100 Intake & Output 04/17/18 04/18/18 04/18/18 18:59 06:59 18:59 Intake Total 960 / 960 Output Total 1200 / 1200 1000 / 1000 Balance -1200 / -1200 -40 / -40 Weight 119.5 kg Intake: Oral 960 / 960 Output: Urine 1200 / 1200 1000 / 1000 Other: Date of Last Bowel Movement 04/17/18 04/17/18 Narrative: GENERAL: AOX3 talkative and cooperative SKIN: Warm and dry. HEAD: Normocephalic. EYES: No scleral icterus. No injection or drainage. Oropharynx is clear tongue is midline NECK: Supple, trachea midline. No JVD or lymphadenopathy. CARDIOVASCULAR: Regular rate and rhythm without murmurs, gallops, or rubs. S1- S2 no S3 or S4 RESPIRATORY: Breath sounds equal bilaterally. No accessory muscle use. Mild bibasilar crackles. GASTROINTESTINAL: Abdomen soft, non-tender, nondistended. MUSCULOSKELETAL: No cyanosis, Unable to lift up right arm. +1 lower extremity edema BACK: Nontender without obvious deformity. No CVA tenderness. Insight and judgment is good Mood and behaviors appropriate Results - Labs CBC & Chem 7: 04/18/18 04:30 04/18/18 04:30 Laboratory Results - last 24 hr 04/18/18 04/18/18 04:30 04:30 WBC 8.6 RBC 3.74 L Hgb 10.7 L Hct 32.6 L MCV 87.0 MCH 28.7 MCHC 32.9 RDW 25.4 H Plt Count 134 L MPV 8.9 Prelim Diff (Auto) Slide review pending Neut % (Auto) 82.2 H Lymph % (Auto) 7.7 L [place] % (Auto) 8.3 H Eos % (Auto) 1.6 Baso % (Auto) 0.2 Neut # (Auto) 7.1 Lymph # (Auto) 0.7 L [place] # (Auto) 0.7 Eos # (Auto) 0.1 Baso # (Auto) 0.0 WBC Differential Manual diff final Seg Neuts % (Manual) 71 H Band Neuts % (Manual) 5 Lymphocytes % (Manual) 11 Monocytes % (Manual) 6 Eosinophils % (Manual) 1 Metamyelocytes % (Man) 1 Myelocytes % (Man) 4 H Promyelocytes % (Man) 1 H Abs Neuts (Manual) 7.1 Differential Comment . Platelet Estimate Low L Platelet Morphology Normal Tear Drop Cells 1+ H Ovalocytes 1+ H Sodium 141 Potassium 3.9 Chloride 108 H Carbon Dioxide 22.3 Anion Gap 11 BUN 16 Creatinine 0.67 Estimated GFR 88 L Random Glucose 133 H Calcium 8.4 L Phosphorus 2.4 L Magnesium 2.2 Total Bilirubin 0.4 AST 9 L ALT 33 Alkaline Phosphatase 127 H Total Protein 5.9 L Albumin 2.5 L TSH 0.057 L Free T4 0.91 Microbiology 04/12/18 09:45 Blood - Peripheral Aerobic Blood Culture - Final No growth in 5 days 04/12/18 09:45 Blood - Peripheral Anaerobic Blood Culture - Final No growth in 5 days 04/12/18 10:00 Blood - Peripheral Aerobic Blood Culture - Final No growth in 5 days 04/12/18 10:00 Blood - Peripheral Anaerobic Blood Culture - Final No growth in 5 days - Imaging Impressions Lumbar Spine MRI 04/17/18 00:00 CONCLUSION: 1. One or two subcentimeter metastatic bone lesion demonstrated of each lumbar vertebral body and also T10, T11 and T12 as well. There is a slightly larger lesion seen of the S2 vertebral body. No pathologic fracture. 2. Multilevel degenerative changes as above without high-grade foraminal or spinal stenosis demonstrated. Pelvis MRI 04/17/18 00:00 CONCLUSION: Modest worsening bony metastatic disease of the pelvis and proximal left femur as above. No pathologic fracture or other acute complication demonstrated. - Procedures RADIATION Assessment and Plan - Assessment (1) Fever of undetermined origin Code(s): R50.9 - Fever, unspecified Status: Acute (2) Metastatic breast cancer Code(s): C50.919 - Malignant neoplasm of unspecified site of unspecified female breast Status: Chronic - Plan Ms. Sellers is a pleasant 68 year old female with a diagnosis of T2N1M0 ER, [place] positive, Her-2 negative metastatic breast cancer, mets to bones including involvement of C6-C7 vertebral bodies with nerve root impingement. She was admitted to the hospital due to one day duration of fever. She did not have cough, abdominal pain, urinary symptoms. CXR, UA unremarkable. Severe sepsis present on admission (resolved) Fever of unknown origin - Blood cultures no growth in 3 days. - Currently afebrile. - Discontinued cefepime and azithromycin. - Has been afebrile off antibiotics. Dyspnea - Currently on room air but bibasilar crackles noted. She does have 1-+ edema in lower ext as well - Will give her one dose of Lasix IV 40mg this AM then continue Lasix 20mg IV BID. - If she feels better after radiation today, she may go home today or perhaps tomorrow 04/18/2018 - Consider switching outpatient med Lasix ==> Torsemide Metastatic breast cancer C6-C7 nerve root impingement -Hematology oncology following patient. Patient will likely undergo radiation treatment on 04/18/2018. -Physical therapy for generalized weakness and fariba right arm weakness. She was on home PT. Hypertension - Lisinopril 5 mg twice daily and metoprolol 25 mg daily. C AT [facility] TO HOME TODAY Code Status: FULL CODE Discussed Condition With: RN AND PT AND CM Discharge Planning: HOPEFULLY HOME WITH [facility] ON 04-18
--- NOTE | 2018-04-18 12:12 | P.DS ---
Date of admission: 04/12/18 14:23 Primary care physician: MERLENE Flanagan Attending physician on discharge: Trung Hull Anticipated date of discharge: 04/18/18 Brief History from admission: 68-year-old white female with a previous history of metastatic breast cancer, psoriasis, restrictive lung disease who currently is receiving radiation treatment and cycles of chemotherapy Taxol with last dose 10 days ago presents to the emergency room secondary to fevers and chills along with increased generalized weakness and decompensation for the past few weeks. She states her hematology oncologist is Dr. Zuñiga. She actually recently saw him in his office a few days ago. She denies any symptoms of chest congestion, coughing, chest pain, abdominal pain, nor any dysuria or diarrhea. She denies any new unusual rash or skin changes recently. DS: Diagnosis - Discharge Diagnosis (1) Fever of undetermined origin Status: Acute (2) Metastatic breast cancer Status: Chronic DS: Medications - Discharge Medications Prescriptions: dexamethasone 4 mg PO BID #60 tab furosemide [Lasix] 40 mg PO DAILY #30 tab ipratropium-albuterol 1 amp NEB Q4HR NEB PRN #180 amp PRN Reason: Dyspnea lisinopril 5 mg PO BID #60 tab lorazepam [Ativan] 1 mg PO BID #60 tab metoprolol tartrate 25 mg PO DAILY #30 tab ondansetron HCl [Zofran] 4 mg PO TID-QID PRN #30 tab PRN Reason: Nausea potassium chloride 10 meq PO DAILY #30 tab pramipexole [Mirapex] 1 mg PO HS #30 tab sennosides [Senna Lax] 17.2 mg PO Q12H PRN #120 tab PRN Reason: Moderate Constipation temazepam 15 mg PO HS PRN #30 cap PRN Reason: Insomnia tramadol [Ultram] 50 mg PO Q6H PRN #12 tab PRN Reason: Pain DS: Summary Hospital Course: 68-year-old white female with a previous history of metastatic breast cancer, psoriasis, restrictive lung disease who currently is receiving radiation treatment and cycles of chemotherapy Taxol with last dose 10 days ago presents to the emergency room secondary to fevers and chills along with increased generalized weakness and decompensation for the past few weeks. She states her hematology oncologist is Dr. Zuñiga. She actually recently saw him in his office a few days ago. She denies any symptoms of chest congestion, coughing, chest pain, abdominal pain, nor any dysuria or diarrhea. She denies any new unusual rash or skin changes recently. 7-9 Follow up for fever of unknown origin in a patient with history of metastatic breast cancer. Patient is doing well, afebrile and on room air. However, she occasionally gets short of breath. She takes Lasix at home PRN. 7-10 TO HAVE RADIATION TOMORROW FINAL DAY OF RADIATION TOMORROW DW RN AND PT AND CM BREATHING A LITTLE BETTER TODAY STILL DIURESING WILL NEED PO MEDS AT DC AM LABS 04-18 had final radiation today WANTS TO GO HOME DW RN AND PT [facility] WANTS TRAMADOL AND RESTORIL FOLLOW UP LETICIA AND PCP STACIE HAS BEEN CHECKED NO CURRENT NARCOTICS OR ANXIETY OR SLEEPERS ON HER LIST WILL PRESCRIBE TRAMADOL FOR PAIN RESTORIL FOR SLEEP AND ATIVAN FOR ANXIETY - Time Spent with Patient Total time spent providing and/or coordinating discharge services: - Quality: VTE Deep Vein Thrombosis/Pulmonary Embolism Present on Admission: Yes Exam Vital signs: Vital Signs 04/17/18 16:00 04/17/18 16:13 04/17/18 20:00 Temperature 98.1 F 97.8 F Pulse Rate 70 65 73 Respiratory Rate 18 19 Blood Pressure 120/66 146/65 H Pulse Oximetry 96 96 04/18/18 00:00 04/18/18 04:00 04/18/18 07:00 Temperature 98.7 F 97.8 F Pulse Rate 75 71 61 Respiratory Rate 17 16 Blood Pressure 144/57 H 159/79 H Pulse Oximetry 98 97 04/18/18 07:44 04/18/18 11:36 Temperature 98.4 F 97.6 F Pulse Rate 63 72 Respiratory Rate 18 18 Blood Pressure 165/74 H 139/73 Pulse Oximetry 98 100 Intake & Output 04/17/18 04/18/18 04/18/18 18:59 06:59 18:59 Intake Total 960 / 960 Output Total 1200 / 1200 1000 / 1000 Balance -1200 / -1200 -40 / -40 Weight 119.5 kg Intake: Oral 960 / 960 Output: Urine 1200 / 1200 1000 / 1000 Other: Date of Last Bowel Movement 04/17/18 04/17/18 Narrative: GENERAL: Oriented 3 talkative and cooperative SKIN: Warm and dry. HEAD: Atraumatic. Normocephalic. EYES: Pupils equal and round. No scleral icterus. No injection or drainage. ENT: No nasal bleeding or discharge. Mucous membranes pink and moist. NECK: Trachea midline. No JVD. CARDIOVASCULAR: Regular rate and rhythm. RESPIRATORY: No accessory muscle use. Clear to auscultation. Breath sounds equal bilaterally. GASTROINTESTINAL: Abdomen soft, non-tender, nondistended. Hepatic and splenic margins not palpable. MUSCULOSKELETAL: Extremities without clubbing, cyanosis, or edema. No obvious deformities. NEUROLOGICAL: Awake and alert. No obvious cranial nerve deficits. Motor grossly within normal limits. 4 out of 5 muscle strength in the arms and legs. Normal speech. PSYCHIATRIC: Appropriate mood and affect; insight and judgment normal. Results Procedures completed during hospitalization: RADIATION Completed studies during hospitalization: Laboratory Results WBC 8.6 th/mm3 (4.0-11.0) 04/18/18 04:30 RBC 3.74 mil/mm3 (4.00-5.30) L 04/18/18 04:30 Hgb 10.7 gm/dL (11.6-15.3) L 04/18/18 04:30 Hct 32.6 % (35.0-46.0) L 04/18/18 04:30 MCV 87.0 fL (80.0-100.0) 04/18/18 04:30 MCH 28.7 pg (27.0-34.0) 04/18/18 04:30 MCHC 32.9 % (32.0-36.0) 04/18/18 04:30 RDW 25.4 % (11.6-17.2) H 04/18/18 04:30 Plt Count 134 th/mm3 (150-450) L 04/18/18 04:30 MPV 8.9 fL (7.0-11.0) 04/18/18 04:30 Prelim Diff (Auto) Slide review pending 04/18/18 04:30 Neut % (Auto) 82.2 % (16.0-70.0) H 04/18/18 04:30 Lymph % (Auto) 7.7 % (9.0-44.0) L 04/18/18 04:30 Ward % (Auto) 8.3 % (0.0-8.0) H 04/18/18 04:30 Eos % (Auto) 1.6 % (0.0-4.0) 04/18/18 04:30 Baso % (Auto) 0.2 % (0.0-2.0) 04/18/18 04:30 Neut # (Auto) 7.1 th/mm3 (1.8-7.7) 04/18/18 04:30 Lymph # (Auto) 0.7 th/mm3 (1.0-4.8) L 04/18/18 04:30 Ward # (Auto) 0.7 th/mm3 (0.0-0.9) 04/18/18 04:30 Eos # (Auto) 0.1 th/mm3 (0.0-0.4) 04/18/18 04:30 Baso # (Auto) 0.0 th/mm3 (0.0-0.2) 04/18/18 04:30 WBC Differential Manual diff final 04/18/18 04:30 Seg Neuts % (Manual) 71 % (16-70) H 04/18/18 04:30 Band Neuts % (Manual) 5 % (0-6) 04/18/18 04:30 Lymphocytes % (Manual) 11 % (9-44) 04/18/18 04:30 Monocytes % (Manual) 6 % (0-8) 04/18/18 04:30 Eosinophils % (Manual) 1 % (0-4) 04/18/18 04:30 Metamyelocytes % (Man) 1 % (0-1) 04/18/18 04:30 Myelocytes % (Man) 4 % (0-0) H 04/18/18 04:30 Promyelocytes % (Man) 1 % (0-0) H 04/18/18 04:30 Abs Neuts (Manual) 7.1 th/mm3 (1.8-7.7) 04/18/18 04:30 Nucleated RBCs/100 WBC 1 /100 WBC (0-0) H 04/17/18 04:50 Differential Comment . 04/18/18 04:30 Toxic Granulation 1+ (None) H 04/15/18 04:30 Platelet Estimate Low (Normal) L 04/18/18 04:30 Platelet Morphology Normal (Normal) 04/18/18 04:30 Tear Drop Cells 1+ (None) H 04/18/18 04:30 Ovalocytes 1+ (None) H 04/18/18 04:30 Jeremy Cells 1+ (None) H 04/15/18 04:30 Acanthocytes (Spur) Occ (None) H 04/17/18 04:50 PT 11.3 sec (9.8-11.6) 04/12/18 09:45 INR 1.1 Ratio 04/12/18 09:45 APTT 24.0 sec (24.3-30.1) L 04/12/18 09:45 Sodium 141 meq/L (136-145) 04/18/18 04:30 Potassium 3.9 meq/L (3.5-5.1) 04/18/18 04:30 Chloride 108 meq/L (98-107) H 04/18/18 04:30 Carbon Dioxide 22.3 meq/L (21.0-32.0) 04/18/18 04:30 Anion Gap 11 meq/L (5-15) 04/18/18 04:30 BUN 16 mg/dL (7-18) 04/18/18 04:30 Creatinine 0.67 mg/dL (0.50-1.00) 04/18/18 04:30 Estimated GFR 88 mL/min (>89) L 04/18/18 04:30 POC Glucose 96 mg/dl (68-110) 04/12/18 10:35 Random Glucose 133 mg/dL (74-106) H 04/18/18 04:30 Lactic Acid 2.8 mmol/L (0.4-2.0) H 04/12/18 16:09 Calcium 8.4 mg/dL (8.5-10.1) L 04/18/18 04:30 Prot Corrected Calcium 7.8 mg/dL (8.5-10.1) L 04/13/18 05:50 Phosphorus 2.4 mg/dL (2.5-4.9) L 04/18/18 04:30 Magnesium 2.2 mg/dL (1.5-2.5) 04/18/18 04:30 Total Bilirubin 0.4 mg/dL (0.2-1.0) 04/18/18 04:30 AST 9 U/L (15-37) L 04/18/18 04:30 ALT 33 U/L (10-53) 04/18/18 04:30 Alkaline Phosphatase 127 U/L (45-117) H 04/18/18 04:30 Total Creatine Kinase 54 U/L (26-192) 04/12/18 09:45 Troponin I Less than 0.02 ng/mL (0.02-0.05) L 04/12/18 09:45 B-Natriuretic Peptide 24 pg/mL (0-100) 04/12/18 09:45 Total Protein 5.9 g/dL (6.4-8.2) L 04/18/18 04:30 Albumin 2.5 g/dL (3.4-5.0) L 04/18/18 04:30 Lipase 34 U/L (73-393) L 04/12/18 09:45 TSH 0.057 uIU/mL (0.358-3.740) L 04/18/18 04:30 Free T4 0.91 ng/dL (0.76-1.46) 04/18/18 04:30 Urine Color [place] (Yellw/Straw) 04/12/18 11:40 Urine Clarity Clear (Clear) 04/12/18 11:40 Urine pH 6.0 (5.0-8.5) 04/12/18 11:40 Ur Specific [place] 1.016 (1.002-1.035) 04/12/18 11:40 Urine Protein 30 mg/dL (Neg-Trace) H 04/12/18 11:40 Urine Glucose (UA) Negative mg/dL (Negative) 04/12/18 11:40 Urine Ketones Negative mg/dL (Negative) 04/12/18 11:40 Urine Occult Blood Negative (Negative) 04/12/18 11:40 Urine Nitrate Negative (Negative) 04/12/18 11:40 Urine Bilirubin Negative (Negative) 04/12/18 11:40 Urine Urobilinogen 4 or greater mg/dL (Less than 2) 04/12/18 11:40 Ur Leukocyte Esterase Negative (Negative) 04/12/18 11:40 Urine RBC 1 /hpf (0-3) 04/12/18 11:40 Urine WBC 3 /hpf (0-5) 04/12/18 11:40 Ur Squamous Epith Cells 1 /hpf (0-5) 04/12/18 11:40 Urine Mucus Few /lpf (Occasional) H 04/12/18 11:40 Micro UA Comment Culture not ind 04/12/18 11:40 Urine Culture Comments Culture not ind 04/12/18 11:40 Vancomycin Trough 6.9 mcg/mL (5.0-10.0) 04/14/18 06:00 Impressions Chest X-Ray 04/16/18 00:00 CONCLUSION: [id number] in good position. A mild interstitial prominence. Lumbar Spine MRI 04/17/18 00:00 CONCLUSION: 1. One or two subcentimeter metastatic bone lesion demonstrated of each lumbar vertebral body and also T10, T11 and T12 as well. There is a slightly larger lesion seen of the S2 vertebral body. No pathologic fracture. 2. Multilevel degenerative changes as above without high-grade foraminal or spinal stenosis demonstrated. Pelvis MRI 04/17/18 00:00 CONCLUSION: Modest worsening bony metastatic disease of the pelvis and proximal left femur as above. No pathologic fracture or other acute complication demonstrated. Labs on day of discharge: Labs from last 24 hours 04/18/18 04/18/18 04/18/18 04:30 04:30 04:30 WBC 8.6 RBC 3.74 L Hgb 10.7 L Hct 32.6 L MCV 87.0 MCH 28.7 MCHC 32.9 RDW 25.4 H Plt Count 134 L MPV 8.9 Prelim Diff (Auto) Slide review pending Neut % (Auto) 82.2 H Lymph % (Auto) 7.7 L Ward % (Auto) 8.3 H Eos % (Auto) 1.6 Baso % (Auto) 0.2 Neut # (Auto) 7.1 Lymph # (Auto) 0.7 L Ward # (Auto) 0.7 Eos # (Auto) 0.1 Baso # (Auto) 0.0 WBC Differential Manual diff final Seg Neuts % (Manual) 71 H Band Neuts % (Manual) 5 Lymphocytes % (Manual) 11 Monocytes % (Manual) 6 Eosinophils % (Manual) 1 Metamyelocytes % (Man) 1 Myelocytes % (Man) 4 H Promyelocytes % (Man) 1 H Abs Neuts (Manual) 7.1 Differential Comment . Platelet Estimate Low L Platelet Morphology Normal Tear Drop Cells 1+ H Ovalocytes 1+ H Sodium 141 Potassium 3.9 Chloride 108 H Carbon Dioxide 22.3 Anion Gap 11 BUN 16 Creatinine 0.67 Estimated GFR 88 L Random Glucose 133 H Hemoglobin A1c Pending Calcium 8.4 L Phosphorus 2.4 L Magnesium 2.2 Total Bilirubin 0.4 AST 9 L ALT 33 Alkaline Phosphatase 127 H Total Protein 5.9 L Albumin 2.5 L TSH 0.057 L Free T4 0.91 - Impressions ITS Impressions Chest X-Ray 04/16/18 00:00 CONCLUSION: Pohewq-u-Mfes in good position. A mild interstitial prominence. Lumbar Spine MRI 04/17/18 00:00 CONCLUSION: 1. One or two subcentimeter metastatic bone lesion demonstrated of each lumbar vertebral body and also T10, T11 and T12 as well. There is a slightly larger lesion seen of the S2 vertebral body. No pathologic fracture. 2. Multilevel degenerative changes as above without high-grade foraminal or spinal stenosis demonstrated. Pelvis MRI 04/17/18 00:00 CONCLUSION: Modest worsening bony metastatic disease of the pelvis and proximal left femur as above. No pathologic fracture or other acute complication demonstrated. Discharge Plan - Discharge Disposition Patient Disposition: /Home Health Service - Discharge Condition Condition: Good - Discharge Order Discharge Orders: Discharge Order (Routine); Ordered 04/18/18 Ordered By: Trung Hull - Discharge Details Anticipated Discharge Date: 04/18/18 - Physicians Team Primary Care Provider: Nichol Dominguez Attending Provider: Trung Hull Other Providers: Ahsan Zuñiga MD
[2018-04-18 16:31] LABS: Hemoglobin A1c 6.1 % (4.3-6.0)
== END 2018-04-18 16:43 | disposition home health service (06) ==
LOC: NEPE 09:23 → NEDA 14:23 → HCIN 16:59
PROVIDERS: ADMIT Hospitalist; ATTEND Hospitalist

== ENCOUNTER 2018-05-11 08:41 | Inpatient (IN) ==
[2018-05-11] MEDS ORDERED: Sod Chloride 0.9% Inj 1,000 ML IV.SIG ONE ×2 (09:37→12:01)
--- NOTE | 2018-05-11 09:51 | ED ---
HPI General Chief complaint: Nausea/Vomiting/Diarrhea Stated complaint: Vomiting Time Seen by Provider: 05/11/18 09:28 History of Present Illness HPI Narrative: This patient complains of nausea and vomiting. She just feels weak and has general malaise. Her heart is racing. She denies having fever. She has metastatic breast cancer to the bone. She is getting chemotherapy. She had a dose on Monday. Started Monday, duration 2 days. Symptoms are moderate to severe in nature. No alleviating factors. Symptoms may be exacerbated by chemotherapy. She is not sure. She denies having diarrhea or fever. She complains of a metallic taste. Related Data Home Medications Medication Instructions Recorded Confirmed levomilnacipran [Fetzima] 120 mg PO DAILY 04/12/18 05/11/18 Lactobacillus rhamnosus GG 1 cap PO DAILY 05/11/18 05/11/18 [Culturelle] dexamethasone 1 mg PO DAILY 05/11/18 05/11/18 fluticasone 1 spray INTRANASAL DAILY 05/11/18 05/11/18 levofloxacin 500 mg PO DAILY 05/11/18 05/11/18 omeprazole 20 mg PO DAILY 05/11/18 05/11/18 Previous Rx's Medication Instructions Recorded ipratropium-albuterol 1 amp NEB Q4HR NEB PRN #180 amp 04/18/18 lorazepam [Ativan] 1 mg PO BID #60 tab 04/18/18 metoprolol tartrate 25 mg PO DAILY #30 tab 04/18/18 ondansetron HCl [Zofran] 4 mg PO TID-QID PRN #30 tab 04/18/18 pramipexole [Mirapex] 1 mg PO HS #30 tab 04/18/18 sennosides [Senna Lax] 17.2 mg PO Q12H PRN #120 tab 04/18/18 tramadol [Ultram] 50 mg PO Q6H PRN #12 tab 04/18/18 Allergies Allergy/AdvReac Type Severity Reaction Status Date / Time hydromorphone [From Dilaudid] AdvReac Intermediate Dizziness Verified 05/11/18 10:38 Review of Systems Except as stated in HPI: all other systems reviewed are negative PMFSH Social History Social History Substance History: No History of Abuse Second Hand Smoke Exposure: Yes Smoking Status: Former smoker Tobacco Type: Cigarettes Cigarettes Per Day: 6 How Often Do You Have a Drink Containing Alcohol: Never Recent Travel in [facility] within the Last 8 Weeks: No Recent Out of Country Travel within the Last 8 Weeks: No Immunization History Tetanus Immunization: <5 Years Exam Narrative Exam Narrative: GENERAL: Well-nourished, well-developed patient with nausea and vomiting . SKIN: Focused skin assessment reveals no rash and nodules. Skin is Warm and dry. HEAD: Atraumatic. Normocephalic. EYES: Pupils equal and round. No scleral icterus. No injection or drainage. ENT: No nasal bleeding or discharge. Mucous membranes pink and moist. NECK: Trachea midline. No JVD. CARDIOVASCULAR: Regular rate and rhythm. No murmur appreciated. Heart rate 140s RESPIRATORY: No accessory muscle use. Clear to auscultation. Breath sounds equal bilaterally. GASTROINTESTINAL: Abdomen soft, non-tender, nondistended. Hepatic and splenic margins not palpable. MUSCULOSKELETAL: No obvious deformities. No clubbing. No cyanosis. No edema. NEUROLOGICAL: Awake and alert. No obvious cranial nerve deficits. Motor grossly within normal limits. Normal speech. PSYCHIATRIC: Appropriate mood and affect; insight and judgment normal. Course Initial Documented Vital Signs Temperature 98.1 F 05/11/18 08:55 Pulse Rate 143 H 05/11/18 08:55 Respiratory Rate 28 H 05/11/18 08:55 Blood Pressure 123/75 05/11/18 08:55 Pulse Oximetry 96 05/11/18 08:55 Last Documented Vital Signs Temperature 98.1 F 05/11/18 08:55 Pulse Rate 123 H 05/11/18 11:00 Respiratory Rate 21 05/11/18 11:00 Blood Pressure 110/72 05/11/18 11:00 Pulse Oximetry 98 05/11/18 11:00 Medical Decision Making MDM Narrative Medical decision making narrative: IV placed and labs sent. I gave her a liter bolus of normal saline and a dose of Zofran and Phenergan. Abdomen is soft and benign and nontender. I reviewed her EKG which shows a regular narrow complex tachycardia with P waves and T waves. They do not really look like flutter waves. It is possible this is a flutter but it seems more like sinus tachycardia but it is a very fast. We will start with IV fluid and monitoring but will leave the option open for Cardizem. We have no Cardizem so I tried a dose of Lopressor. Improved heart rate only very temporarily. She is back up to 130. I gave her additional liter of saline IV bolus which did not help. Labs are reviewed. Not stable for return to [facility]. Heart rate in the 130s. I reviewed the medical residents will admit for further evaluation. Differential Diagnosis Differential Diagnosis: Dehydration, electrolyte abnormality, a flutter, profound sinus tachycardia, chemotherapy side effect Medical Records Medical records reviewed: Yes I reviewed the patient's medical records. Lab Data Result diagrams: 05/11/18 09:50 05/11/18 09:50 Lab Results 05/11/18 05/11/18 Range/Units 09:50 09:50 WBC 3.3 L (4.0-11.0) th/mm3 RBC 4.86 (4.00-5.30) mil/mm3 Hgb 14.7 (11.6-15.3) gm/dL Hct 43.5 (35.0-46.0) % MCV 89.6 (80.0-100.0) fL MCH 30.2 (27.0-34.0) pg MCHC 33.7 (32.0-36.0) % RDW 22.7 H (11.6-17.2) % Plt Count 198 D (150-450) th/mm3 MPV 9.3 (7.0-11.0) fL Prelim Diff (Auto) Slide review pending Neut % (Auto) 55.3 (16.0-70.0) % Lymph % (Auto) 40.9 (9.0-44.0) % [place] % (Auto) 1.5 (0.0-8.0) % Eos % (Auto) 1.4 (0.0-4.0) % Baso % (Auto) 0.9 (0.0-2.0) % Neut # (Auto) 1.9 (1.8-7.7) th/mm3 Lymph # (Auto) 1.4 (1.0-4.8) th/mm3 Ramsey # (Auto) 0.1 (0.0-0.9) th/mm3 Eos # (Auto) 0.0 (0.0-0.4) th/mm3 Baso # (Auto) 0.0 (0.0-0.2) th/mm3 WBC Differential Manual diff final Seg Neuts % (Manual) 35 (16-70) % Band Neuts % (Manual) 18 H (0-6) % Lymphocytes % (Manual) 32 (9-44) % Monocytes % (Manual) 7 (0-8) % Eosinophils % (Manual) 4 (0-4) % Metamyelocytes % (Man) 4 H (0-1) % Abs Neuts (Manual) 1.9 (1.8-7.7) th/mm3 Nucleated RBCs/100 WBC 5 H (0-0) /100 WBC Differential Comment . Platelet Estimate Normal (Normal) Platelet Morphology Normal (Normal) Spherocytes Occ H (None) Ovalocytes 1+ H (None) Sodium 136 (136-145) meq/L Potassium 4.2 (3.5-5.1) meq/L Chloride 105 (98-107) meq/L Carbon Dioxide 18.4 L (21.0-32.0) meq/L Anion Gap 13 (5-15) meq/L BUN 13 (7-18) mg/dL Creatinine 1.19 H (0.50-1.00) mg/dL Estimated GFR 45 L (>89) mL/min Random Glucose 162 H (74-106) mg/dL Calcium 8.4 L (8.5-10.1) mg/dL Total Bilirubin 1.6 H (0.2-1.0) mg/dL AST 20 (15-37) U/L ALT 30 (10-53) U/L Alkaline Phosphatase 154 H (45-117) U/L Total Protein 7.3 (6.4-8.2) g/dL Albumin 3.0 L (3.4-5.0) g/dL TSH 1.350 (0.358-3.740) uIU/mL Imaging Data Radiologist's impression: Chest X-Ray 05/11/18 09:37 CONCLUSION: 1. No acute abnormality or significant interval change. Discharge Plan Physicians Team ED Provider: Matty Hilliard Primary Care Provider: Nichol Dominguez Rxs /Orders / Referrals /Forms Prescriptions: No Action levomilnacipran [Fetzima] 20 mg Capsule,Extended Release 24 Hr 120 mg PO DAILY RF: 0 sennosides [Senna Lax] 8.6 mg Tablet 17.2 mg PO Q12H PRN (Reason: Moderate Constipation) Qty: 120 RF: 0 ipratropium-albuterol 0.5 mg-3 mg(2.5 mg base)/3 mL Solution For Nebulization 1 amp NEB Q4HR NEB PRN (Reason: Dyspnea) Qty: 180 RF: 0 tramadol [Ultram] 50 mg Tablet 50 mg PO Q6H PRN (Reason: Pain) Qty: 12 RF: 0 pramipexole [Mirapex] 1 mg Tablet 1 mg PO HS Qty: 30 RF: 0 ondansetron HCl [Zofran] 4 mg Tablet 4 mg PO TID-QID PRN (Reason: Nausea) Qty: 30 RF: 0 lorazepam [Ativan] 1 mg Tablet 1 mg PO BID Qty: 60 RF: 0 metoprolol tartrate 25 mg Tablet 25 mg PO DAILY Qty: 30 RF: 0 dexamethasone 1 mg Tablet 1 mg PO DAILY RF: 0 levofloxacin 500 mg Tablet 500 mg PO DAILY RF: 0 fluticasone 50 mcg/actuation [place],Suspension 1 spray INTRANASAL DAILY RF: 0 omeprazole 20 mg Tablet,Delayed Release (Dr/Ec) 20 mg PO DAILY RF: 0 Lactobacillus rhamnosus GG [Culturelle] 15 billion cell Capsule, Sprinkle 1 cap PO DAILY RF: 0 Discharge Interventions Interventions: Vital Signs Last Done: 05/11/18 11:00 Status ED Status: With Doctor
[2018-05-11 10:08] LABS: White Blood Count 3.3 th/mm3 (4.0-11.0)
[2018-05-11 10:09] LABS: Baso % (Auto) 0.9 % (0.0-2.0); Eos % (Auto) 1.4 % (0.0-4.0); Hematocrit 43.5 % (35.0-46.0); Hemoglobin 14.7 gm/dL (11.6-15.3); Lymph # (Auto) 1.4 th/mm3 (1.0-4.8); Lymph % (Auto) 40.9 % (9.0-44.0); Mean Corpuscular HGB Conc 33.7 % (32.0-36.0); Mean Corpuscular Hemoglobin 30.2 pg (27.0-34.0); Mean Corpuscular Volume 89.6 fL (80.0-100.0); Mean Platelet Volume 9.3 fL (7.0-11.0); Mono # (Auto) 0.1 th/mm3 (0.0-0.9); Mono % (Auto) 1.5 % (0.0-8.0); Neut # (Auto) 1.9 th/mm3 (1.8-7.7); Neut % (Auto) 55.3 % (16.0-70.0); Platelet Count 198 th/mm3 (150-450); Red Blood Count 4.86 mil/mm3 (4.00-5.30); Red Cell Distribution Width 22.7 % (11.6-17.2)
--- NOTE | 2018-05-11 10:25 | XR ---
EXAM DATE: 05/11/2018 10:14 AM EDT AGE/SEX: 68 years / Female INDICATIONS: Shortness of breath. CLINICAL DATA: This is the patient's subsequent encounter. Patient reports that signs and symptoms h ave been present for 3 days and indicates a pain score of 10/10. MEDICAL/SURGICAL HISTORY: Carcinoma, breast. Patient has breast cancer, she has been nauseous a nd weak since last chemo treatment. Patient status inhibits full history. Mastectomy, left. [place] cement. COMPARISON: [facility], CHEST 1V SINGLE AP, 04/16/2018. . FINDINGS: Stable right IJ Rzrqcu-y-Oejk with tip in the proximal SVC. No new focal pleural or parenchymal opaci ties. The cardiomediastinal contours are unremarkable. Osseous structures are intact. CONCLUSION: 1. No acute abnormality or significant interval change. Electronically signed by: Luis Smith MD 05/11/2018 10:23 AM EDT
[2018-05-11] MEDS ORDERED: Metoprolol Inj 5 MG/5 ML Vial IV.PUSH ONE (10:26)
[2018-05-11 10:48] LABS: Anion Gap 13 meq/L (5-15); Aspartate Aminotransferase 20 U/L (15-37); Blood Urea Nitrogen 13 mg/dL (7-18); Calcium 8.4 mg/dL (8.5-10.1); Carbon Dioxide 18.4 meq/L (21.0-32.0); Chloride 105 meq/L (98-107); Glomerular Filtration Rate 45 mL/min (>89); Glucose,Random 162 mg/dL (74-106); Potassium 4.2 meq/L (3.5-5.1); Sodium 136 meq/L (136-145)
[2018-05-11 11:00] LABS: Alanine Aminotransferase 30 U/L (10-53); Alkaline Phosphatase 154 U/L (45-117); Total Protein 7.3 g/dL (6.4-8.2)
[2018-05-11 11:06] LABS: Eosinophils 4 % (0-4); Metamyelocytes 4 % (0-1); Monocytes 7 % (0-8); Tallied Nucleated RBC 5 (0-0)
[2018-05-11 11:07] LABS: Lymphocytes 32 % (9-44); Platelet Estimate Normal (Normal); Platelet Morphology Normal (Normal); Spherocytes Occ
[2018-05-11 11:08] LABS: Ovalocytes 1+
--- NOTE | 2018-05-11 14:32 | P.HPFP ---
History of Present Illness Primary Care Physician: MERLENE Flanagan <Chase Childress - 05/12/18 20:06> MERLENE Flanagan <Loli Waters - 05/11/18 14:32> History of Present Illness: 68 year old female currently on chemotherapy for metastatic breat cancer, last chemo dose was Monday presents to the ED for vomiting and diarrhea. She said it started night (last night), she believes, with an ear ache and some congestion and she felt nauseas. She told her doctor operations engineer at the longterm and she gave her some Mucinex but was unsure if she got any nausea medication at the time. The doctor also put her on Levaquin but she is unsure for what reason. She continued to have a cough and was coughing up dark green sputum x20. She then started having diarrhea yesterday night x6, denies any melana. She then started vomiting along with the diarrhea x6 describes the color as dark green. Patient is followed by Dr. Zuñiga for oncology for breast cancer. Pts last chemotherapy treatment was on Monday and this is her second dose new drug. She has never experienced vomiting on chemotherapy. Has never experienced vomiting up "green sputum" before. Denies any sick contacts at the longterm. Denies any ear ache currently. <Loli Waters - 05/11/18 22:15> - Diagnosis (1) SIRS (systemic inflammatory response syndrome) (2) Pyelonephritis (3) Vomiting and diarrhea (4) Leukopenia due to antineoplastic chemotherapy (5) Tachycardia (6) MARIELA (acute kidney injury) (7) Metastatic breast cancer (8) Nutrition, metabolism, and development symptoms (9) DVT prophylaxis <Chase Childress - 05/12/18 20:06> (1) SIRS (systemic inflammatory response syndrome) (2) Vomiting and diarrhea (3) Leukopenia due to antineoplastic chemotherapy (4) Tachycardia (5) MARIELA (acute kidney injury) (6) Metastatic breast cancer (7) Nutrition, metabolism, and development symptoms (8) DVT prophylaxis <Loli Waters - 05/11/18 22:28> Inpatient Certification: I certify that the inpatient services were ordered in accordance with Medicare regulations governing the order. This includes certification that hospital inpatient services are reasonable and necessary and in the case of services not specified as inpatient-only under 42 CFR 419.22(n), that they are appropriately provided as inpatient services in accordance to with the 2-midnight benchmark under 43 CFR 412.3(e) <Chase Childress 05/12/18 19:54> Review of Systems Constitutional: Denies chills, Denies fever(s), Denies night sweats <Loli Waters 05/11/18 15:12> Cardiovascular: Denies chest pain, Denies rapid, pounding, or irregular heartbeat, Denies shortness of breath <Loli Waters 05/11/18 15:12> Respiratory: Reports cough, Reports shortness of breath, Denies chest congestion , Denies excessive phlegm production, Denies pain with cough <Loli Waters 05/11/18 15:12> Gastrointestinal: Reports vomiting, Denies abdominal pain, Denies black, tarry stools, Denies bright, red blood in stools, Denies constipation <Loli Waters 05/11/18 15:12> Comments: dark green sputum <Loli Waters 05/11/18 15:12> PMFSH - History History Provided By: Patient <Loli Waters 05/11/18 14:32> - Medical History Medical History: Medical History (Last Updated 05/11/18 @ 15:11 by Loli Waters MD, R1) GERD (gastroesophageal reflux disease) Breast cancer Invasive lobular carcinoma of breast, stage 4 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 Psoriasis Psoriatic arthritis Restrictive lung disease <Chase Childress 05/12/18 19:54> Medical History (Last Updated 05/11/18 @ 15:11 by Loli Waters MD, R1) GERD (gastroesophageal reflux disease) Breast cancer Invasive lobular carcinoma of breast, stage 4 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 Psoriasis Psoriatic arthritis Restrictive lung disease <Loli Waters 05/11/18 15:12> - Surgical History Surgical History: Surgical History (Last Reviewed 05/11/18 @ 15:10 by Loli Waters MD, R1) H/O mastectomy History of knee replacement History of open reduction and internal fixation (ORIF) procedure Status post chemotherapy Status post radiation therapy <Chase Childress 05/12/18 19:54> Surgical History (Last Reviewed 05/11/18 @ 15:10 by Loli Waters MD, R1) H/O mastectomy History of knee replacement History of open reduction and internal fixation (ORIF) procedure Status post chemotherapy Status post radiation therapy <Loli Waters - 05/11/18 15:12> - Family History Family History: Family History (Last Reviewed 04/12/18 @ 15:14 by Christi Almaraz MD) Mother Fibrosarcoma Father Liver disease <Chase Childress - 05/12/18 19:54> Family History (Last Reviewed 04/12/18 @ 15:14 by Christi Almaraz MD) Mother Fibrosarcoma Father Liver disease <Loli Waters - 05/11/18 14:32> - Tobacco History Second Hand Smoke Exposure: Yes <Loli Waters - 05/11/18 14:32> Smoking Status: Former smoker <Loli Waters - 05/11/18 14:32> Tobacco Type: Cigarettes <Loli Waters - 05/11/18 14:32> Packs Per Day: 0.5 (quit 8 weeks ago) <Loli Waters - 05/11/18 15:12> - Alcohol History How Often Do You Have a Drink Containing Alcohol: Never <Loli Waters - 12/24 14:32> - Substance Use History Substance History: No History of Abuse <Loli Waters - 05/11/18 14:32> - Travel History Recent Travel in the [place] Within the Last 8 Weeks: No <Loli Waters 14:32> Recent Travel Out of the Country Within the Last 8 Weeks: No <Loli Waters - 05/11/18 14:32> - Immunization History Tetanus Immunization: <5 Years <Loli Waters 05/11/18 14:32> Medications and Allergies Allergies Allergy/AdvReac Type Severity Reaction Status Date / Time hydromorphone [From Dilaudid] AdvReac Intermediate Dizziness Verified 05/11/18 10:38 <Chase Childress - 05/12/18 20:06> Home Medications Medication Instructions Recorded Confirmed Type levomilnacipran [Fetzima] 120 mg PO DAILY 04/12/18 05/11/18 History Lactobacillus rhamnosus GG 1 cap PO DAILY 05/11/18 05/11/18 History [Culturelle] dexamethasone 1 mg PO DAILY 05/11/18 05/11/18 History fluticasone 1 spray INTRANASAL DAILY 05/11/18 05/11/18 History levofloxacin 500 mg PO DAILY 05/11/18 05/11/18 History omeprazole 20 mg PO DAILY 05/11/18 05/11/18 History <Chase Childress - 05/12/18 20:06> Active Medications: Active Medications Acetaminophen (Tylenol) 650 mg PO Q4H PRN PRN Reason: Temp > 100.4 Al Hydroxide/Mg Hydroxide (Milk Of Magnsasha Liq) 30 ml PO Q12H PRN PRN Reason: Mild Constipation Albuterol (Duoneb Neb ([facility])) 1 ampul NEB Q6HR NEB [facility] Last Admin: 05/12/18 17:24 Dose: 1 ampul Bisacodyl (Dulcolax Supp) 10 mg RECTAL DAILY PRN PRN Reason: SEVERE CONSITIPATION Diltiazem HCl (Cardizem) 30 mg PO Q8HR [facility] Last Admin: 05/12/18 17:56 Dose: Not Given Enoxaparin Sodium (Lovenox Inj) 40 mg SQ Q24H [facility] Last Admin: 05/12/18 18:47 Dose: 40 mg Fidaxomicin (Dificid) 200 mg PO BID [facility] Last Admin: 05/12/18 18:48 Dose: 200 mg Sodium Chloride (Ns Inj) 1,000 mls @ 155 mls/hr IV.CONT .Q6H28M [facility] Last Admin: 05/12/18 18:49 Dose: Not Given Piperacillin/Tazobactam/Dextrose (Zosyn 4.5 Gm Premix) 4.5 gm in 100 mls @ 200 mls/hr IV.SIG Q6H [facility] Last Admin: 05/12/18 18:24 Dose: 200 mls/hr Azithromycin 500 mg/ Sodium (Chloride) 250 mls @ 250 mls/hr IV.SIG Q24H [facility] Last Admin: 05/12/18 18:50 Dose: Not Given Sodium Bicarbonate 150 meq/ (Sterile Water) 1,000 mls @ 150 mls/hr IV.CONT .Q6H40M [facility] Last Admin: 05/12/18 18:07 Dose: 150 mls/hr Lactulose (Lactulose Liq) 30 ml PO DAILY PRN PRN Reason: SEVERE CONSITIPATION Lorazepam (Ativan) 1 mg PO BID [facility] Last Admin: 05/12/18 13:51 Dose: Not Given Metoprolol Tartrate (Lopressor) 25 mg PO DAILY [facility] Last Admin: 05/12/18 09:23 Dose: Not Given Ondansetron HCl (Zofran Inj) 8 mg IV.PUSH Q8H PRN PRN Reason: VOMITING Last Admin: 05/12/18 09:24 Dose: 8 mg Pantoprazole Sodium (Protonix Inj) 40 mg IV.PUSH Q24H [facility] Last Admin: 05/12/18 18:44 Dose: 40 mg Pramipexole Dihydrochloride (Mirapex) 1 mg PO HS [facility] Last Admin: 05/11/18 22:19 Dose: 1 mg Sennosides (Senokot) 17.2 mg PO Q12H PRN PRN Reason: Moderate Constipation Sodium Chloride (Ns Flush) 2 ml IV.FLUSH PRN PRN PRN Reason: FLUSH AFTER USING IV ACCESS Last Admin: 05/11/18 14:27 Dose: 2 ml Temazepam (Restoril) 15 mg PO HS PRN PRN Reason: INSOMNIA Tramadol HCl (Ultram) 50 mg PO Q6H PRN PRN Reason: PAIN SCALE 1 TO 10 Vancomycin HCl (Vancomycin Po) 500 mg PO QID [facility] Last Admin: 05/12/18 18:45 Dose: 500 mg Warfarin Sodium (Coumadin) 5 mg PO DAILY@1600 [facility] Last Admin: 05/12/18 18:47 Dose: 5 mg <Chase Childress - 05/12/18 20:06> Active Medications Ondansetron HCl (Zofran Inj) 8 mg IV.PUSH Q8H PRN PRN Reason: VOMITING Sodium Chloride (Ns Flush) 2 ml IV.FLUSH PRN PRN PRN Reason: FLUSH AFTER USING IV ACCESS Last Admin: 05/11/18 11:16 Dose: 2 ml <Loli Waters - 05/11/18 14:32> Exam Vital signs: Vital Signs 05/11/18 20:00 05/11/18 23:57 05/12/18 00:00 Temperature 99.4 F 98.4 F Pulse Rate 126 H 124 H 127 H Respiratory Rate 20 22 Blood Pressure 146/73 H 146/86 H Pulse Oximetry 100 97 05/12/18 04:00 05/12/18 08:00 05/12/18 12:00 Temperature 98 F 98.1 F 98.8 F Pulse Rate 131 H 113 H 109 H Respiratory Rate 24 22 24 Blood Pressure 122/76 117/61 93/65 L Pulse Oximetry 98 93 L 97 05/12/18 16:00 05/12/18 17:25 Temperature Pulse Rate 96 H 106 H Respiratory Rate 18 Blood Pressure Pulse Oximetry Intake & Output 05/12/18 05/12/18 05/13/18 06:59 18:59 06:59 Intake Total 1617 / 1617 1100 / 1100 Output Total 0 / 0 0 / 0 Balance 1617 / 1617 1100 / 1100 Weight 111.5 kg Intake: IV 1617 / 1617 1100 / 1100 NS Inj 1,000 ML @ 155 mls/hr IV 900 / 900 1000 / 1000 .CONT .Q6H28M [facility] Rx#:[id number] Zosyn 4.5 GM Premix 4.5 gm In 200 / 200 100 / 100 100 ml @ 200 mls/hr IV.SIG Q6H [facility] Rx#:[id number] Vancomycin Inj 1,700 MG In NS 517 / 517 Inj 500 ML @ 250 mls/hr IV.SIG Q18H [facility] Rx#:[id number] Oral 0 / 0 0 / 0 Output: Urine 0 / 0 0 / 0 Other: # Incontinent Voids 2 Date of Last Bowel Movement 05/12/18 05/12/18 # Incontinent Bowel Movements 2 2 <Chase Childress - 05/12/18 20:06> Vital Signs 05/11/18 08:55 05/11/18 10:05 05/11/18 11:00 Temperature 98.1 F Pulse Rate 143 H 148 H 123 H Respiratory Rate 28 H 33 H 21 Blood Pressure 123/75 112/63 110/72 Pulse Oximetry 96 97 98 Intake & Output 05/10/18 05/11/18 05/11/18 18:59 06:59 18:59 Weight 114.305 kg <Loli Waters - 05/11/18 14:32> - Constitutional mild distress <Loli Waters 05/11/18 17:14> Comments: Elderly lady, laying in bed, drowsy, unable to speak because she is nauseated. <Loli Waters 05/11/18 17:14> - Routine HEENT Exam Head: Present: normocephalic, atraumatic <Loli Waters 05/11/18 17:14> - Routine Respiratory Exam Present: CTA bilaterally <Loli Waters 05/11/18 17:14> Comments: Unable to auscultate posteriorly as patient was drowsy unable to sit up. Anterior auscultation. <Loli Waters 05/11/18 17:14> - Routine Cardiovascular Exam Present: RRR, S1, S2. Absent: murmur <Loli Waters 05/11/18 17:14> - Routine Abdominal Exam Present: soft, normoactive bowel sounds, tenderness. Absent: distended <Loli Waters 05/11/18 17:14> Comments: Tenderness to palpation on the right upper quadrant. <Loli Waters 05/11/18 17:14> - Routine Extremities Exam Absent: edema <Loli Waters 05/11/18 17:14> - Routine Neurological Exam Present: alert, oriented X3 <Loli Waters 05/11/18 17:14> Results - Labs Result diagrams: 05/12/18 15:32 05/12/18 14:30 <Chase Childress - 05/12/18 20:06> Abnormal lab results 05/11/18 05/12/18 05/12/18 Range/Units 20:15 12:54 14:30 WBC (4.0-11.0) th/mm3 RBC (4.00-5.30) mil/mm3 RDW (11.6-17.2) % Plt Count (150-450) th/mm3 Band Neuts % (Manual) (0-6) % PT (9.8-11.6) sec APTT (24.3-30.1) sec O2 Saturation (90-100) % ABG pH (7.380-7.420) ABG pCO2 (38-42) mmHg ABG pO2 (61-120) mmHG ABG HCO3 (22-26) mmol/L ABG Base Excess (-2-2) mmol/L Hemoglobin (12.0-16.0) G/DL Chloride 118 H D (98-107) meq/L Carbon Dioxide 13.3 L (21.0-32.0) meq/L BUN 29 H (7-18) mg/dL Creatinine 2.12 H (0.50-1.00) mg/dL Estimated GFR 23 L (>89) mL/min POC Glucose 117 H (68-110) mg/dl Random Glucose 128 H (74-106) mg/dL Lactic Acid (0.4-2.0) mmol/L Calcium 6.8 L* D (8.5-10.1) mg/dL Prot Corrected Calcium 7.6 L (8.5-10.1) mg/dL Total Bilirubin 1.4 H (0.2-1.0) mg/dL Troponin I 0.06 H (0.02-0.05) ng/mL Total Protein 5.5 L D (6.4-8.2) g/dL Albumin 1.8 L D (3.4-5.0) g/dL Lipase 20 L (73-393) U/L Stl C.difficile Tox PCR Positive H (Negative) St C. diff Tox Epid 027 Positive H (Negative) 05/12/18 05/12/18 05/12/18 Range/Units 14:35 15:32 15:32 WBC 3.9 L (4.0-11.0) th/mm3 RBC 3.91 L (4.00-5.30) mil/mm3 RDW 23.2 H (11.6-17.2) % Plt Count 138 L D (150-450) th/mm3 Band Neuts % (Manual) 13 H (0-6) % PT 13.3 H (9.8-11.6) sec APTT 33.5 H (24.3-30.1) sec O2 Saturation 87 L* (90-100) % ABG pH 7.44 H (7.380-7.420) ABG pCO2 15 L* (38-42) mmHg ABG pO2 56 L* (61-120) mmHG ABG HCO3 10 L* (22-26) mmol/L ABG Base Excess -13.6 L (-2-2) mmol/L Hemoglobin 11.9 L (12.0-16.0) G/DL Chloride (98-107) meq/L Carbon Dioxide (21.0-32.0) meq/L BUN (7-18) mg/dL Creatinine (0.50-1.00) mg/dL Estimated GFR (>89) mL/min POC Glucose (68-110) mg/dl Random Glucose (74-106) mg/dL Lactic Acid (0.4-2.0) mmol/L Calcium (8.5-10.1) mg/dL Prot Corrected Calcium (8.5-10.1) mg/dL Total Bilirubin (0.2-1.0) mg/dL Troponin I (0.02-0.05) ng/mL Total Protein (6.4-8.2) g/dL Albumin (3.4-5.0) g/dL Lipase (73-393) U/L Stl C.difficile Tox PCR (Negative) St C. diff Tox Epid 027 (Negative) 05/12/18 05/12/18 Range/Units 15:32 17:50 WBC (4.0-11.0) th/mm3 RBC (4.00-5.30) mil/mm3 RDW (11.6-17.2) % Plt Count (150-450) th/mm3 Band Neuts % (Manual) (0-6) % PT (9.8-11.6) sec APTT (24.3-30.1) sec O2 Saturation (90-100) % ABG pH 7.50 H (7.380-7.420) ABG pCO2 20 L* (38-42) mmHg ABG pO2 122 H (61-120) mmHG ABG HCO3 16 L* (22-26) mmol/L ABG Base Excess -7.1 L (-2-2) mmol/L Hemoglobin (12.0-16.0) G/DL Chloride (98-107) meq/L Carbon Dioxide (21.0-32.0) meq/L BUN (7-18) mg/dL Creatinine (0.50-1.00) mg/dL Estimated GFR (>89) mL/min POC Glucose (68-110) mg/dl Random Glucose (74-106) mg/dL Lactic Acid 4.2 H* (0.4-2.0) mmol/L Calcium (8.5-10.1) mg/dL Prot Corrected Calcium (8.5-10.1) mg/dL Total Bilirubin (0.2-1.0) mg/dL Troponin I (0.02-0.05) ng/mL Total Protein (6.4-8.2) g/dL Albumin (3.4-5.0) g/dL Lipase (73-393) U/L Stl C.difficile Tox PCR (Negative) St C. diff Tox Epid 027 (Negative) Short CBC 05/12/18 Range/Units 15:32 WBC 3.9 L (4.0-11.0) th/mm3 Hgb 11.7 D (11.6-15.3) gm/dL Hct 35.5 (35.0-46.0) % Plt Count 138 L D (150-450) th/mm3 BMP 05/12/18 14:30 Sodium 145 Potassium 3.7 Chloride 118 H D Carbon Dioxide 13.3 L BUN 29 H Creatinine 2.12 H Calcium 6.8 L* D Cardiac Enzymes 05/11/18 05/12/18 Range/Units 19:49 14:30 Total Creatine Kinase 52 (26-192) U/L Troponin I 0.04 0.06 H (0.02-0.05) ng/mL Liver Function 05/12/18 Range/Units 14:30 Total Bilirubin 1.4 H (0.2-1.0) mg/dL AST 26 (15-37) U/L ALT 20 (10-53) U/L Alkaline Phosphatase 95 (45-117) U/L Albumin 1.8 L D (3.4-5.0) g/dL <Chase Childress - 05/12/18 20:06> Abnormal lab results 05/11/18 05/11/18 Range/Units 09:50 09:50 WBC 3.3 L (4.0-11.0) th/mm3 RDW 22.7 H (11.6-17.2) % Band Neuts % (Manual) 18 H (0-6) % Metamyelocytes % (Man) 4 H (0-1) % Nucleated RBCs/100 WBC 5 H (0-0) /100 WBC Spherocytes Occ H (None) Ovalocytes 1+ H (None) Carbon Dioxide 18.4 L (21.0-32.0) meq/L Creatinine 1.19 H (0.50-1.00) mg/dL Estimated GFR 45 L (>89) mL/min Random Glucose 162 H (74-106) mg/dL Calcium 8.4 L (8.5-10.1) mg/dL Total Bilirubin 1.6 H (0.2-1.0) mg/dL Alkaline Phosphatase 154 H (45-117) U/L Albumin 3.0 L (3.4-5.0) g/dL Short CBC 05/11/18 Range/Units 09:50 WBC 3.3 L (4.0-11.0) th/mm3 Hgb 14.7 (11.6-15.3) gm/dL Hct 43.5 (35.0-46.0) % Plt Count 198 D (150-450) th/mm3 BMP 05/11/18 09:50 Sodium 136 Potassium 4.2 Chloride 105 Carbon Dioxide 18.4 L BUN 13 Creatinine 1.19 H Calcium 8.4 L Liver Function 05/11/18 Range/Units 09:50 Total Bilirubin 1.6 H (0.2-1.0) mg/dL AST 20 (15-37) U/L ALT 30 (10-53) U/L Alkaline Phosphatase 154 H (45-117) U/L Albumin 3.0 L (3.4-5.0) g/dL <Loli Waters - 05/11/18 14:32> - Imaging Impressions Chest CT 05/12/18 00:00 CONCLUSION: 1. Confluent opacity in the right upper lobe that is new when compared to the prior study 2016. Morphology would favor scarring. There is mild associated bronchiectasis. More acute consolidation is also in the differential diagnosis. Neoplasm would be less likely but is in the differential diagnosis. Recommend a follow-up noncontrast chest CT confirm stability or resolution in 3 months. 2. Minimal nonspecific groundglass opacity in the left upper lobe. The prominent bilateral groundglass opacity seen on prior study of 2017 is not seen on today's study. Head CT 05/12/18 00:00 CONCLUSION: 1. No acute intracranial abnormalities. Stable chronic white matter ischemic changes. . Abdomen/Pelvis CT 05/12/18 00:22 CONCLUSION: 1. Abnormal appearance to the left kidney with multiple wedge-shaped areas of decreased enhancement. The findings are characteristic of pyelonephritis with differential considerations of renal infarction, interstitial nephritis, and renal lymphoma. 2. 5 mm calcification in the cecum near the appendiceal orifice could represent an appendicolith. The appendix, however, has a normal size and radiographic appearance. Chest X-Ray 05/12/18 13:35 CONCLUSION: Right upper lobe airspace disease similar to May 3. Abdomen/Pelvis CT 05/12/18 15:00 CONCLUSION: 1. Questionable mild mural thickening of the colon that could indicate a mild colitis, especially transverse colon. 2. Heterogeneous renal parenchymal enhancement not as optimally evaluated as on prior study. Cannot exclude pyelonephritis. 3. Bhagat catheter in decompressed bladder. 4. Hiatal hernia. 5. Moderate coronary calcifications. <Chase Childress 05/12/18 20:06> Impressions Chest X-Ray 05/11/18 09:37 CONCLUSION: 1. No acute abnormality or significant interval change. <Loli Waters - 05/11/18 14:32> Caprini VTE Risk Assessment Caprini VTE Risk Assessment: Moderate/High Risk (score >= 2) <Loli Waters - 05/11/18 17:14> Caprini Risk Assessment Model: Point Value = 1 Point Value = 2 Point Value = 3 Point Value = 5 Age 41-60 Minor surgery BMI > 25 kg/m2 Swollen legs Varicose veins or History of unexplained or recurrent spontaneous Oral contraceptives or hormone replacement Sepsis (< 1 month) Serious lung disease, including pneumonia (< 1 month) Abnormal pulmonary function Acute myocardial infarction Congestive heart failure (< 1 month) History of inflammatory bowel disease Medical patient at bed rest Age 61-74 Arthroscopic surgery Major open surgery (> 45 min) Laparoscopic surgery (> 45 min) Malignancy Confined to bed (> 72 hours) Immobilizing plaster cast Central venous access Age >= 75 History of VTE Family history of VTE Factor V Leiden Prothrombin [id number] Lupus anticoagulant Anticardiolipin antibodies Elevated serum homocysteine Heparin-induced thrombocytopenia Other congenital or acquired thrombophilia Stroke (< 1 month) Elective arthroplasty Hip, pelvis, or leg fracture Acute spinal cord injury (< 1 month) <Chase Childress 08/04/18 20:06> Point Value = 1 Point Value = 2 Point Value = 3 Point Value = 5 Age 41-60 Minor surgery BMI > 25 kg/m2 Swollen legs Varicose veins or History of unexplained or recurrent spontaneous Oral contraceptives or hormone replacement Sepsis (< 1 month) Serious lung disease, including pneumonia (< 1 month) Abnormal pulmonary function Acute myocardial infarction Congestive heart failure (< 1 month) History of inflammatory bowel disease Medical patient at bed rest Age 61-74 Arthroscopic surgery Major open surgery (> 45 min) Laparoscopic surgery (> 45 min) Malignancy Confined to bed (> 72 hours) Immobilizing plaster cast Central venous access Age >= 75 History of VTE Family history of VTE Factor V Leiden Prothrombin [id number] Lupus anticoagulant Anticardiolipin antibodies Elevated serum homocysteine Heparin-induced thrombocytopenia Other congenital or acquired thrombophilia Stroke (< 1 month) Elective arthroplasty Hip, pelvis, or leg fracture Acute spinal cord injury (< 1 month) <Loli Waters - 05/11/18 14:32> Prophylaxis Regimen: Total Risk Factor Score Risk Level Prophylaxis Regimen 0-1 Low Early ambulation 2 Moderate Order ONE of the following: *Sequential Compression Device (SCD) *Heparin 5000 units SQ BID 3-4 Higher Order ONE of the following medications: *Heparin 5000 units SQ TID *Enoxaparin/Lovenox 40 mg SQ daily (WT < 150 kg, CrCl > 30 mL/min) *Enoxaparin/Lovenox 30 mg SQ daily (WT < 150 kg, CrCl > 10-29 mL/min) *Enoxaparin/Lovenox 30 mg SQ BID (WT < 150 kg, CrCl > 30 mL/min) AND/OR *Sequential Compression Device (SCD) 5 or more Highest Order ONE of the following medications: *Heparin 5000 units SQ TID (Preferred with Epidurals) *Enoxaparin/Lovenox 40 mg SQ daily (WT < 150 kg, CrCl > 30 mL/min) *Enoxaparin/Lovenox 30 mg SQ daily (WT < 150 kg, CrCl > 10-29 mL/min) *Enoxaparin/Lovenox 30 mg SQ BID (WT < 150 kg, CrCl > 30 mL/min) AND *Sequential Compression Device (SCD) <Chase Childress - 05/12/18 20:06> Total Risk Factor Score Risk Level Prophylaxis Regimen 0-1 Low Early ambulation 2 Moderate Order ONE of the following: *Sequential Compression Device (SCD) *Heparin 5000 units SQ BID 3-4 Higher Order ONE of the following medications: *Heparin 5000 units SQ TID *Enoxaparin/Lovenox 40 mg SQ daily (WT < 150 kg, CrCl > 30 mL/min) *Enoxaparin/Lovenox 30 mg SQ daily (WT < 150 kg, CrCl > 10-29 mL/min) *Enoxaparin/Lovenox 30 mg SQ BID (WT < 150 kg, CrCl > 30 mL/min) AND/OR *Sequential Compression Device (SCD) 5 or more Highest Order ONE of the following medications: *Heparin 5000 units SQ TID (Preferred with Epidurals) *Enoxaparin/Lovenox 40 mg SQ daily (WT < 150 kg, CrCl > 30 mL/min) *Enoxaparin/Lovenox 30 mg SQ daily (WT < 150 kg, CrCl > 10-29 mL/min) *Enoxaparin/Lovenox 30 mg SQ BID (WT < 150 kg, CrCl > 30 mL/min) AND *Sequential Compression Device (SCD) <Loli Waters - 05/11/18 14:32> Assessment and Plan - Assessment (1) SIRS (systemic inflammatory response syndrome) Code(s): R65.10 - Systemic inflammatory response syndrome (SIRS) of non- infectious origin without acute organ dysfunction Status: Acute (2) Pyelonephritis Code(s): N12 - Tubulo-interstitial nephritis, not specified as acute or chronic Status: Acute (3) Vomiting and diarrhea Code(s): R11.10 - Vomiting, unspecified; R19.7 - Diarrhea, unspecified Status : Acute (4) Leukopenia due to antineoplastic chemotherapy Code(s): D70.1 - Agranulocytosis secondary to cancer chemotherapy; T45.1X5A - Adverse effect of antineoplastic and immunosuppressive drugs, initial encounter Status: Acute (5) Tachycardia Code(s): R00.0 - Tachycardia, unspecified Status: Acute (6) MARIELA (acute kidney injury) Code(s): N17.9 - Acute kidney failure, unspecified Status: Acute (7) Metastatic breast cancer Code(s): C50.919 - Malignant neoplasm of unspecified site of unspecified female breast Status: Chronic (8) Nutrition, metabolism, and development symptoms Code(s): R63.8 - Other symptoms and signs concerning food and fluid intake Status: Acute (9) DVT prophylaxis Status: Acute <Chase Childress - 05/12/18 20:06> (1) SIRS (systemic inflammatory response syndrome) Code(s): R65.10 - Systemic inflammatory response syndrome (SIRS) of non- infectious origin without acute organ dysfunction Status: Acute Plan: On admission HR:143, RR:28, Bands: 18. Meets 3 out of 5 SIRS criteria. Unknown source of infection. Vancomycin and Zosyn added empirically for coverage. UA and Culture ordered. Follow Up. Chest Xray Ordered. Follow Up. Blood cultures ordered, follow-up. CT of abdomen ordered. Follow-up Lipase ordered. Follow-up Follow-up sputum culture. Continue to monitor vitals every 4. Follow-up CBC in a.m. Follow-up CMP in a.m. (2) Vomiting and diarrhea Code(s): R11.10 - Vomiting, unspecified; R19.7 - Diarrhea, unspecified Status : Acute Plan: Patient actively having dark green emesis and dark green diarrhea. DDX: Acute gastroenteritis, chemotherapy-induced vomiting, C. difficile, pancreatitis, cholecystitis. C. difficile PCR ordered. Follow-up Stool studies ordered. Follow-up Abdominal CT ordered. Follow-up Lipase ordered. Follow-up Protonix 40 mg IV daily. Zofran 8 mg IV q8 for Nausea Continue to monitor CMP for any electrolyte abnormalities due to vomiting and diarrhea. NS @ 155 mls/hr (3) Leukopenia due to antineoplastic chemotherapy Code(s): D70.1 - Agranulocytosis secondary to cancer chemotherapy; T45.1X5A - Adverse effect of antineoplastic and immunosuppressive drugs, initial encounter Status: Acute Plan: WBC: 3.3 on admission. Possibly due to patient being on chemotherapy. Patient is currently afebrile. Oncology consulted. Appreciate recommendations. Follow-up CBC, PT/INR, CMP in a.m. Continue to monitor vitals every 4. (4) Tachycardia Code(s): R00.0 - Tachycardia, unspecified Status: Acute Plan: HR: 143,148 on admission EKG shows sinus tachycardia Possibly due to dehydration. Continue NS @ 155 mls/hour Monitor I's&O's Monitor vitals q4 Troponin ordered. Follow-up Patient on telemetry. (5) MARIELA (acute kidney injury) Code(s): N17.9 - Acute kidney failure, unspecified Status: Acute Plan: Cr: 1.19 on admission. Baseline: 0.67 Possibly due to dehydration due to vomiting and diarrhea Continue rehydration with fluids. Follow-up CMP in a.m. (6) Metastatic breast cancer Code(s): C50.919 - Malignant neoplasm of unspecified site of unspecified female breast Status: Chronic Plan: Currently followed by Dr. Zuñiga, oncology. CT of abdomen with contrast ordered to evaluate any additional metastasis. Continue to monitor platelets, white blood cell count in a.m. Oncology consulted. Appreciate recommendations. (7) Nutrition, metabolism, and development symptoms Code(s): R63.8 - Other symptoms and signs concerning food and fluid intake Status: Acute Plan: Fluids: NS @ 155 mls/hour Electrolytes: Monitor and Replete as needed Diet: N.p.o. (8) DVT prophylaxis Status: Acute Plan: SCDs only. <Loli Waters - 05/11/18 22:28> - Assessment and Plan 68-year-old female currently undergoing chemotherapy for metastatic breast cancer presents to the emergency room with vomiting and diarrhea for 1 day. Patient has dark green emesis and diarrhea. <Loli Waters - 05/11/18 22:28> Discharge Planning: Plan for discharge once patient becomes clinically stable and oncology suggest recommendations. <Loli Waters - 05/11/18 22:26>
[2018-05-11] MEDS ORDERED: Bisacodyl 10 MG Supp RECTAL PRN (15:43)
[2018-05-11] MEDS ORDERED: Temazepam 15 MG Capsule PO PRN (15:43)
[2018-05-11] MEDS ORDERED: Acetaminophen 325 MG Tablet PO PRN (15:43)
[2018-05-11] MEDS ORDERED: Diatrizoate Meglum/Diatrizoate Sod Liq 9 ML UDC PO ONE (16:30)
[2018-05-11 17:06] LABS: Bacteria,Urine Rare /hpf; Bilirubin,Urine Negative (Negative); Clarity,Urine Hazy (Clear); Color,Urine Amber (Yellw/Straw); Glucose,Urine (UA) 50 mg/dL (Negative); Hyaline Casts,Urine 6 /lpf (0-3); Leukocyte Esterase,Urine Negative (Negative); Nitrite,Urine Negative (Negative); Renal Epithelial Cells,Urine 1 /hpf; Specific Gravity,Urine 1.016 (1.002-1.035); Squamous Epithelial Cell,Urine 1 /hpf (0-5); Transitional Epi Cells,Urine 1 /hpf
[2018-05-11] MEDS: Pantoprazole Inj 40 MG Vial IV.PUSH SCH (17:34)
[2018-05-11] MEDS ORDERED: Vancomycin Consult Pharmacy 1 EACH OTHER SCH (18:00)
[2018-05-11] MEDS ORDERED: Piperacil/Tazo 4.5 GM Premix 4.5 GM/100 ML BAG IV.SIG SCH (18:00)
[2018-05-11] MEDS: Sod Chloride 0.9% Inj 1,000 ML IV.CONT SCH ×2 (18:35→23:56)
--- NOTE | 2018-05-11 18:48 | XR ---
EXAM DATE: 05/11/2018 6:13 PM EDT AGE/SEX: 68 years / Female INDICATIONS: . Shortness of breath. CLINICAL DATA: This is the patient's initial encounter. Patient reports that signs and symptoms have been present for 4 - 6 days and indicates a pain score of 0/10. MEDICAL/SURGICAL HISTORY: . Carcinoma, breast, Metastatic disease. . Mastectomy, left, Total knee replacement, left, Total knee replacement, right, ORIF left femur. COMPARISON: [facility] [place] 1V SINGLE AP, 05/11/2018. . FINDINGS: There is consolidation in the right upper lobe which is slightly increased since exam performed earli er today. Left lung remains clear. Remote left rib fractures. No effusion. No pneumothorax. CONCLUSION: Right upper lobe consolidation most characteristic of pneumonia. [id number]-[id number] in superior vena cava. Electronically signed by: Andrea Galicia MD 05/11/2018 6:47 PM EDT
[2018-05-11] MEDS ORDERED: Vancomycin Inj 1,700 MG in Sodium Chlor 0.9% Inj 500 ML IV.SIG SCH (20:00)
[2018-05-11] MEDS: LORazepam 1 MG Tablet PO SCH (20:53)
[2018-05-11] MEDS: Piperacil/Tazo 4.5 GM Premix 4.5 GM/100 ML BAG IV.SIG SCH (22:19)
[2018-05-11] MEDS: metroNIDAZOLE 500 MG Tablet PO SCH (23:26)
--- NOTE | 2018-05-12 00:44 | CT ---
EXAM DATE: 05/12/2018 12:31 AM EDT AGE/SEX: 68 years / Female INDICATIONS: Abdominal pain. CLINICAL DATA: This is the patient's initial encounter. Patient reports that signs and symptoms have been present for 1 day and indicates a pain score of 7/10. MEDICAL/SURGICAL HISTORY: Deep venous thrombosis. Sepsis. Gastroesophageal reflux disease. M etastatic breast cancer. None. ORAL CONTRAST: Prescribed oral contrast ingested. RADIATION DOSE: 16.98 CTDI (mGy) COMPARISON: No prior exams available for comparison. TECHNIQUE: Multiple contiguous axial images were obtained through the abdomen and pelvis following b olus infusion of 95 ml Omnipaque 350 (iohexol) nonionic water-soluble contrast as a single exam dos e. Prescribed oral contrast ingested. Using automated exposure control and adjustment of the mA and/ or kV according to patient size, radiation dose was kept as low as reasonably achievable to obtain op timal diagnostic quality images. DICOM format image data is available electronically for review and comparison. FINDINGS: On the field artifact due to large body habitus and the patient's arms being within the fie ld-of-view of the exam. Lower Lungs: The visualized lower lungs are clear. Liver: The liver has a homogeneous density without space-occupying lesion. There is no dilation of th e biliary tree. No calcified gallstones. Spleen: Homogeneous density without enlargement. Pancreas: Unremarkable without mass or calcification. Kidneys: The right kidney has a normal appearance. The left kidney is slightly smaller than the left , measuring 7.4 cm in long axis. There are several wedge-shaped areas of decreased enhancement in the cortex involving upper pole, mid pole, and lower pole. No evidence of hydronephrosis. No induration of the perinephric fat on either side. Adrenal Glands: Unremarkable. Aorta: The aorta and proximal iliac vessels are grossly unremarkable without aneurysmal dilation. Bowel/Mesentery: No dilated loops of small or large bowel. The appendix is at the notified inferior medial to the cecum and has a normal size, measuring 5 mm or less. There is an oblong calcification i n the cecum near the orifice of the appendix which measures 6 mm; is uncertain whether this represent s an ingested material or an appendicolith. Abdominal Wall: Intact. Retroperitoneum: No evidence of adenopathy in the retrocrural, para-aortic, or deep pelvic regions. Bladder: Contours are smooth. Reproductive Organs: No abnormal masses or calcifications seen. Inguinal: The inguinal region is unremarkable without evidence of adenopathy. Bony Structures: Unremarkable. CONCLUSION: 1. Abnormal appearance to the left kidney with multiple wedge-shaped areas of decreased enhancement. The findings are characteristic of pyelonephritis with differential considerations of renal infarcti on, interstitial nephritis, and renal lymphoma. 2. 5 mm calcification in the cecum near the appendiceal orifice could represent an appendicolith. Th e appendix, however, has a normal size and radiographic appearance. Electronically signed by: Basim Glover MD 05/12/2018 12:42 AM EDT
[2018-05-12] MEDS: Piperacil/Tazo 4.5 GM Premix 4.5 GM/100 ML BAG IV.SIG SCH ×4 (04:00→21:50)
[2018-05-12] MEDS: metroNIDAZOLE 500 MG Tablet PO SCH (05:52)
[2018-05-12] MEDS ORDERED: Metoprolol Tartrate 25 MG Tablet PO SCH (09:00)
--- NOTE | 2018-05-12 10:46 | P.PNFP ---
Subjective Interval history: Patient seen and examined bedside this morning. Patient states she feels confused. She is unable to give us a good narrative history of her nighttime events. She cannot tell us her name is. Her sentences do not make sense. Per nursing, she did vomit once overnight and it was green bile-like vomit. She has continued to have green diarrhea as well. No acute events per nursing. Patient denies any current pain. <Dinora Soto - 05/12/18 10:46> Results - Labs Result diagrams: 05/12/18 15:32 05/12/18 14:30 <Chase Childress - 05/12/18 20:00> Abnormal lab results 05/11/18 05/12/18 05/12/18 Range/Units 20:15 12:54 14:30 WBC (4.0-11.0) th/mm3 RBC (4.00-5.30) mil/mm3 RDW (11.6-17.2) % Plt Count (150-450) th/mm3 Band Neuts % (Manual) (0-6) % PT (9.8-11.6) sec APTT (24.3-30.1) sec O2 Saturation (90-100) % ABG pH (7.380-7.420) ABG pCO2 (38-42) mmHg ABG pO2 (61-120) mmHG ABG HCO3 (22-26) mmol/L ABG Base Excess (-2-2) mmol/L Hemoglobin (12.0-16.0) G/DL Chloride 118 H D (98-107) meq/L Carbon Dioxide 13.3 L (21.0-32.0) meq/L BUN 29 H (7-18) mg/dL Creatinine 2.12 H (0.50-1.00) mg/dL Estimated GFR 23 L (>89) mL/min POC Glucose 117 H (68-110) mg/dl Random Glucose 128 H (74-106) mg/dL Lactic Acid (0.4-2.0) mmol/L Calcium 6.8 L* D (8.5-10.1) mg/dL Prot Corrected Calcium 7.6 L (8.5-10.1) mg/dL Total Bilirubin 1.4 H (0.2-1.0) mg/dL Troponin I 0.06 H (0.02-0.05) ng/mL Total Protein 5.5 L D (6.4-8.2) g/dL Albumin 1.8 L D (3.4-5.0) g/dL Lipase 20 L (73-393) U/L Stl C.difficile Tox PCR Positive H (Negative) St C. diff Tox Epid 027 Positive H (Negative) 05/12/18 05/12/18 05/12/18 Range/Units 14:35 15:32 15:32 WBC 3.9 L (4.0-11.0) th/mm3 RBC 3.91 L (4.00-5.30) mil/mm3 RDW 23.2 H (11.6-17.2) % Plt Count 138 L D (150-450) th/mm3 Band Neuts % (Manual) 13 H (0-6) % PT 13.3 H (9.8-11.6) sec APTT 33.5 H (24.3-30.1) sec O2 Saturation 87 L* (90-100) % ABG pH 7.44 H (7.380-7.420) ABG pCO2 15 L* (38-42) mmHg ABG pO2 56 L* (61-120) mmHG ABG HCO3 10 L* (22-26) mmol/L ABG Base Excess -13.6 L (-2-2) mmol/L Hemoglobin 11.9 L (12.0-16.0) G/DL Chloride (98-107) meq/L Carbon Dioxide (21.0-32.0) meq/L BUN (7-18) mg/dL Creatinine (0.50-1.00) mg/dL Estimated GFR (>89) mL/min POC Glucose (68-110) mg/dl Random Glucose (74-106) mg/dL Lactic Acid (0.4-2.0) mmol/L Calcium (8.5-10.1) mg/dL Prot Corrected Calcium (8.5-10.1) mg/dL Total Bilirubin (0.2-1.0) mg/dL Troponin I (0.02-0.05) ng/mL Total Protein (6.4-8.2) g/dL Albumin (3.4-5.0) g/dL Lipase (73-393) U/L Stl C.difficile Tox PCR (Negative) St C. diff Tox Epid 027 (Negative) 05/12/18 05/12/18 Range/Units 15:32 17:50 WBC (4.0-11.0) th/mm3 RBC (4.00-5.30) mil/mm3 RDW (11.6-17.2) % Plt Count (150-450) th/mm3 Band Neuts % (Manual) (0-6) % PT (9.8-11.6) sec APTT (24.3-30.1) sec O2 Saturation (90-100) % ABG pH 7.50 H (7.380-7.420) ABG pCO2 20 L* (38-42) mmHg ABG pO2 122 H (61-120) mmHG ABG HCO3 16 L* (22-26) mmol/L ABG Base Excess -7.1 L (-2-2) mmol/L Hemoglobin (12.0-16.0) G/DL Chloride (98-107) meq/L Carbon Dioxide (21.0-32.0) meq/L BUN (7-18) mg/dL Creatinine (0.50-1.00) mg/dL Estimated GFR (>89) mL/min POC Glucose (68-110) mg/dl Random Glucose (74-106) mg/dL Lactic Acid 4.2 H* (0.4-2.0) mmol/L Calcium (8.5-10.1) mg/dL Prot Corrected Calcium (8.5-10.1) mg/dL Total Bilirubin (0.2-1.0) mg/dL Troponin I (0.02-0.05) ng/mL Total Protein (6.4-8.2) g/dL Albumin (3.4-5.0) g/dL Lipase (73-393) U/L Stl C.difficile Tox PCR (Negative) St C. diff Tox Epid 027 (Negative) Short CBC 05/12/18 Range/Units 15:32 WBC 3.9 L (4.0-11.0) th/mm3 Hgb 11.7 D (11.6-15.3) gm/dL Hct 35.5 (35.0-46.0) % Plt Count 138 L D (150-450) th/mm3 BMP 05/12/18 14:30 Sodium 145 Potassium 3.7 Chloride 118 H D Carbon Dioxide 13.3 L BUN 29 H Creatinine 2.12 H Calcium 6.8 L* D Cardiac Enzymes 05/11/18 05/12/18 Range/Units 19:49 14:30 Total Creatine Kinase 52 (26-192) U/L Troponin I 0.04 0.06 H (0.02-0.05) ng/mL Liver Function 05/12/18 Range/Units 14:30 Total Bilirubin 1.4 H (0.2-1.0) mg/dL AST 26 (15-37) U/L ALT 20 (10-53) U/L Alkaline Phosphatase 95 (45-117) U/L Albumin 1.8 L D (3.4-5.0) g/dL <FiorChase - 05/12/18 20:00> Abnormal lab results 05/11/18 05/11/18 05/11/18 Range/Units 09:50 09:50 16:39 Band Neuts % (Manual) 18 H (0-6) % Metamyelocytes % (Man) 4 H (0-1) % Nucleated RBCs/100 WBC 5 H (0-0) /100 WBC Spherocytes Occ H (None) Ovalocytes 1+ H (None) Carbon Dioxide 18.4 L (21.0-32.0) meq/L Creatinine 1.19 H (0.50-1.00) mg/dL Estimated GFR 45 L (>89) mL/min Random Glucose 162 H (74-106) mg/dL Calcium 8.4 L (8.5-10.1) mg/dL Total Bilirubin 1.6 H (0.2-1.0) mg/dL Alkaline Phosphatase 154 H (45-117) U/L Albumin 3.0 L (3.4-5.0) g/dL Urine Clarity Hazy H (Clear) Urine Protein 30 H (Neg-Trace) mg/dL Urine Bacteria Rare H (None) /hpf Stl C.difficile Tox PCR (Negative) St C. diff Tox Epid 027 (Negative) 05/11/18 Range/Units 20:15 Band Neuts % (Manual) (0-6) % Metamyelocytes % (Man) (0-1) % Nucleated RBCs/100 WBC (0-0) /100 WBC Spherocytes (None) Ovalocytes (None) Carbon Dioxide (21.0-32.0) meq/L Creatinine (0.50-1.00) mg/dL Estimated GFR (>89) mL/min Random Glucose (74-106) mg/dL Calcium (8.5-10.1) mg/dL Total Bilirubin (0.2-1.0) mg/dL Alkaline Phosphatase (45-117) U/L Albumin (3.4-5.0) g/dL Urine Clarity (Clear) Urine Protein (Neg-Trace) mg/dL Urine Bacteria (None) /hpf Stl C.difficile Tox PCR Positive H (Negative) St C. diff Tox Epid 027 Positive H (Negative) BMP 05/11/18 09:50 Sodium 136 Potassium 4.2 Chloride 105 Carbon Dioxide 18.4 L BUN 13 Creatinine 1.19 H Calcium 8.4 L Cardiac Enzymes 05/11/18 Range/Units 19:49 Troponin I 0.04 (0.02-0.05) ng/mL Liver Function 05/11/18 Range/Units 09:50 Total Bilirubin 1.6 H (0.2-1.0) mg/dL AST 20 (15-37) U/L ALT 30 (10-53) U/L Alkaline Phosphatase 154 H (45-117) U/L Albumin 3.0 L (3.4-5.0) g/dL Urine 05/11/18 Range/Units 16:39 Urine Color [place] (Yellw/Straw) Urine Clarity Hazy H (Clear) Urine pH 6.0 (5.0-8.5) Ur Specific [place] 1.016 (1.002-1.035) Urine Protein 30 H (Neg-Trace) mg/dL Urine Glucose (UA) 50 (Negative) mg/dL <Dinora Soto - 05/12/18 10:46> - Imaging Impressions Chest CT 05/12/18 00:00 CONCLUSION: 1. Confluent opacity in the right upper lobe that is new when compared to the prior study 2016. Morphology would favor scarring. There is mild associated bronchiectasis. More acute consolidation is also in the differential diagnosis. Neoplasm would be less likely but is in the differential diagnosis. Recommend a follow-up noncontrast chest CT confirm stability or resolution in 3 months. 2. Minimal nonspecific groundglass opacity in the left upper lobe. The prominent bilateral groundglass opacity seen on prior study of 2017 is not seen on today's study. Head CT 05/12/18 00:00 CONCLUSION: 1. No acute intracranial abnormalities. Stable chronic white matter ischemic changes. . Abdomen/Pelvis CT 05/12/18 00:22 CONCLUSION: 1. Abnormal appearance to the left kidney with multiple wedge-shaped areas of decreased enhancement. The findings are characteristic of pyelonephritis with differential considerations of renal infarction, interstitial nephritis, and renal lymphoma. 2. 5 mm calcification in the cecum near the appendiceal orifice could represent an appendicolith. The appendix, however, has a normal size and radiographic appearance. Chest X-Ray 05/12/18 13:35 CONCLUSION: Right upper lobe airspace disease similar to May 3. Abdomen/Pelvis CT 05/12/18 15:00 CONCLUSION: 1. Questionable mild mural thickening of the colon that could indicate a mild colitis, especially transverse colon. 2. Heterogeneous renal parenchymal enhancement not as optimally evaluated as on prior study. Cannot exclude pyelonephritis. 3. Bhagat catheter in decompressed bladder. 4. Hiatal hernia. 5. Moderate coronary calcifications. <Chase Childress - 05/12/18 20:00> Impressions Chest X-Ray 05/11/18 00:00 CONCLUSION: Right upper lobe consolidation most characteristic of pneumonia. Htegmg-m-Eovz in superior vena cava. Chest X-Ray 05/11/18 09:37 CONCLUSION: 1. No acute abnormality or significant interval change. Abdomen/Pelvis CT 05/12/18 00:22 CONCLUSION: 1. Abnormal appearance to the left kidney with multiple wedge-shaped areas of decreased enhancement. The findings are characteristic of pyelonephritis with differential considerations of renal infarction, interstitial nephritis, and renal lymphoma. 2. 5 mm calcification in the cecum near the appendiceal orifice could represent an appendicolith. The appendix, however, has a normal size and radiographic appearance. <Dinora Soto - 05/12/18 10:46> Physical Exam Vital signs: Vital Signs 05/11/18 20:00 05/11/18 23:57 05/12/18 00:00 Temperature 99.4 F 98.4 F Pulse Rate 126 H 124 H 127 H Respiratory Rate 20 22 Blood Pressure 146/73 H 146/86 H Pulse Oximetry 100 97 05/12/18 04:00 05/12/18 08:00 05/12/18 12:00 Temperature 98 F 98.1 F 98.8 F Pulse Rate 131 H 113 H 109 H Respiratory Rate 24 22 24 Blood Pressure 122/76 117/61 93/65 L Pulse Oximetry 98 93 L 97 05/12/18 16:00 05/12/18 17:25 Temperature Pulse Rate 96 H 106 H Respiratory Rate 18 Blood Pressure Pulse Oximetry Intake & Output 05/12/18 05/12/18 05/13/18 06:59 18:59 06:59 Intake Total 1617 / 1617 1100 / 1100 Output Total 0 / 0 0 / 0 Balance 1617 / 1617 1100 / 1100 Weight 111.5 kg Intake: IV 1617 / 1617 1100 / 1100 NS Inj 1,000 ML @ 155 mls/hr IV 900 / 900 1000 / 1000 .CONT .Q6H28M WILFREDO Rx#:[id number] Zosyn 4.5 GM Premix 4.5 gm In 200 / 200 100 / 100 100 ml @ 200 mls/hr IV.SIG Q6H [facility]O Rx#:[id number] Vancomycin Inj 1,700 MG In NS 517 / 517 Inj 500 ML @ 250 mls/hr IV.SIG Q18H [facility]O Rx#:[id number] Oral 0 / 0 0 / 0 Output: Urine 0 / 0 0 / 0 Other: # Incontinent Voids 2 Date of Last Bowel Movement 05/12/18 05/12/18 # Incontinent Bowel Movements 2 2 <Chase Childress - 05/12/18 20:00> Vital Signs 05/11/18 11:00 05/11/18 12:00 05/11/18 13:00 Temperature Pulse Rate 123 H 122 H 126 H Respiratory Rate 21 29 H 30 H Blood Pressure 110/72 109/55 L 100/60 Pulse Oximetry 98 96 97 05/11/18 16:15 05/11/18 16:50 05/11/18 17:00 Temperature 97.9 F Pulse Rate 132 H 126 H Respiratory Rate 24 22 Blood Pressure 116/62 145/63 H Pulse Oximetry 97 96 05/11/18 19:51 05/11/18 20:00 05/11/18 23:57 Temperature 99.4 F Pulse Rate 132 H 126 H 124 H Respiratory Rate 20 Blood Pressure 146/73 H Pulse Oximetry 100 05/12/18 00:00 05/12/18 04:00 05/12/18 08:00 Temperature 98.4 F 98 F 98.1 F Pulse Rate 127 H 131 H 98 H Respiratory Rate 22 24 22 Blood Pressure 146/86 H 122/76 117/61 Pulse Oximetry 97 98 93 L Intake & Output 05/11/18 05/12/18 05/12/18 18:59 06:59 18:59 Intake Total 1999 1617 / 1617 1000 / 1000 Output Total 0 / 0 Balance 1999 1617 / 1617 1000 / 1000 Weight 112.8 kg 111.5 kg Intake: IV 1999 1617 / 1617 1000 / 1000 NS Inj 1,000 ML @ 155 mls/hr IV 900 / 900 1000 / 1000 .CONT .Q6H28M [facility]O Rx#:[id number] Zosyn 4.5 GM Premix 4.5 gm In 200 / 200 100 ml @ 200 mls/hr IV.SIG Q6H [facility] Rx#:[id number] NS Inj 1,000 ML @ Wide Open IV. 1999 SIG BOLUS ONE Rx#:[id number] Vancomycin Inj 1,700 MG In NS 517 / 517 Inj 500 ML @ 250 mls/hr IV.SIG Q18H [facility] Rx#:[id number] Oral 0 / 0 Output: Urine 0 / 0 Other: Date of Last Bowel Movement 05/12/18 # Incontinent Bowel Movements 2 Weight On Admission 112.8 kg <Dinora Soto 05/12/18 10:46> - Constitutional no acute distress <Dinora Soto 05/12/18 10:46> - Routine Respiratory Exam Present: CTA bilaterally <Dinora Soto 05/12/18 10:46> - Routine Cardiovascular Exam Present: RRR, S1, S2 <Dinora Soto 05/12/18 10:46> - Routine Abdominal Exam Present: soft, normoactive bowel sounds, tenderness <Dinora Soto 10:46> Comments: Tenderness in epigastric area on deep palpation only, no rebound tenderness, no peritoneal signs <Dinora Soto 05/12/18 10:46> - Routine Extremities Exam Present: edema (Trace edema bilaterally, consistent from yesterday). Absent: cyanosis, clubbing <Dinora Soto 05/12/18 10:46> - Routine Neurological Exam Present: alert (Awake and alert with nonsensical verbiage, oriented 0) < Dinora Soto - 05/12/18 10:46> - Urinary Catheter Management Indwelling Urethral Catheter Cath placed during this visit: yes <Chase Childress 05/12/18 20:00> Reason for continuing: Hourly intake/output <Chase Childress 05/12/18 20:00> Insertion date: 05/12/18 <Chase Childress 05/12/18 20:00> Insertion time: 15:00 <Chase Childress 05/12/18 20:00> Assessment and Plan - Assessment (1) SIRS (systemic inflammatory response syndrome) Code(s): R65.10 - Systemic inflammatory response syndrome (SIRS) of non- infectious origin without acute organ dysfunction Status: Acute (2) Pyelonephritis Code(s): N12 - Tubulo-interstitial nephritis, not specified as acute or chronic Status: Acute (3) Vomiting and diarrhea Code(s): R11.10 - Vomiting, unspecified; R19.7 - Diarrhea, unspecified Status : Acute (4) Leukopenia due to antineoplastic chemotherapy Code(s): D70.1 - Agranulocytosis secondary to cancer chemotherapy; T45.1X5A - Adverse effect of antineoplastic and immunosuppressive drugs, initial encounter Status: Acute (5) Tachycardia Code(s): R00.0 - Tachycardia, unspecified Status: Acute (6) MARIELA (acute kidney injury) Code(s): N17.9 - Acute kidney failure, unspecified Status: Acute (7) Metastatic breast cancer Code(s): C50.919 - Malignant neoplasm of unspecified site of unspecified female breast Status: Chronic (8) Nutrition, metabolism, and development symptoms Code(s): R63.8 - Other symptoms and signs concerning food and fluid intake Status: Acute (9) DVT prophylaxis Status: Acute <Chase Childress 05/12/18 20:00> (1) SIRS (systemic inflammatory response syndrome) Code(s): R65.10 - Systemic inflammatory response syndrome (SIRS) of non- infectious origin without acute organ dysfunction Status: Acute Plan: HR overnight 124-136, HR this morning 98 RR overnight 20-24 Afebrile on admission, WBC 3.3, follow-up CBC this a.m. Deteriorating mental status from yesterday to today Possible source of sepsis includes pyelonephritis, C. difficile colitis, bacteremia Continue empiric coverage with vancomycin Zosyn Continue to consider pulmonary embolism as possible source of tachycardia, tachypnea, follow-up venous duplex ultrasound of legs bilaterally On admission HR:143, RR:28, Bands: 18. Meets 3 out of 5 SIRS criteria. Unknown source of infection. Vancomycin and Zosyn added empirically for coverage. UA and Culture ordered. Follow Up. Chest Xray: Negative Blood cultures ordered, follow-up. CT of abdomen; probable pyelonephritis as above, versus interstitial nephritis versus renal infarction versus renal lymphoma. 5 mm calcification could represent appendicolith Lipase ordered. Follow-up Follow-up sputum culture. Continue to monitor vitals every 4. Follow-up CBC this a.m. Follow-up CMP in a.m. (2) Pyelonephritis Code(s): N12 - Tubulo-interstitial nephritis, not specified as acute or chronic Status: Acute Plan: Possible pyelonephritis on CT versus renal infarction Continue empirical antibiotic treatment as above (3) Vomiting and diarrhea Code(s): R11.10 - Vomiting, unspecified; R19.7 - Diarrhea, unspecified Status : Acute Plan: C. difficile positive, CT negative for any gallbladder pathology or obstruction mass Flagyl 500 mg p.o. every 8 hours scheduled, monitor for vomiting, should be 10- 14 day course (05/12 - ) Will monitor for improvement Patient actively having dark green emesis and dark green diarrhea. DDX: Acute gastroenteritis, chemotherapy-induced vomiting, C. difficile, pancreatitis, cholecystitis. C. difficile PCR: Positive Stool studies ordered. Follow-up Abdominal CT ordered. Follow-up Lipase ordered. Follow-up Protonix 40 mg IV daily. Zofran 8 mg IV q8 for Nausea Continue to monitor CMP for any electrolyte abnormalities due to vomiting and diarrhea. NS @ 155 mls/hr (4) Leukopenia due to antineoplastic chemotherapy Code(s): D70.1 - Agranulocytosis secondary to cancer chemotherapy; T45.1X5A - Adverse effect of antineoplastic and immunosuppressive drugs, initial encounter Status: Acute Plan: WBC: 3.3 on admission. Possibly due to patient being on chemotherapy. Patient is currently afebrile. Oncology consulted. Appreciate recommendations. Follow-up CBC, PT/INR, CMP in a.m. Continue to monitor vitals every 4. (5) Tachycardia Code(s): R00.0 - Tachycardia, unspecified Status: Acute Plan: And tachycardia overnight Start diltiazem 30 mg p.o. every 8 hours scheduled HR: 143,148 on admission EKG shows sinus tachycardia Possibly due to dehydration. Continue NS @ 155 mls/hour Monitor I's&O's Monitor vitals q4 Troponin ordered. Follow-up Patient on telemetry. (6) MARIELA (acute kidney injury) Code(s): N17.9 - Acute kidney failure, unspecified Status: Acute Plan: Cr: 1.19 on admission. Baseline: 0.67 Possibly due to dehydration due to vomiting and diarrhea Continue rehydration with fluids. Follow-up CMP in a.m. (7) Metastatic breast cancer Code(s): C50.919 - Malignant neoplasm of unspecified site of unspecified female breast Status: Chronic Plan: Currently followed by Dr. Zuñiga, oncology. Worsening mental status today Attempting to contact on-call oncologist for more information on pt CT of abdomen with contrast: no additional tumors revealed CT head w/ and w/out IV contrast to eval for brain mets Continue to treat for infxn, rule out mets Oncology consulted. Appreciate recommendations. (8) Nutrition, metabolism, and development symptoms Code(s): R63.8 - Other symptoms and signs concerning food and fluid intake Status: Acute Plan: Fluids: NS @ 155 mls/hour Electrolytes: Monitor and Replete as needed Diet: N.p.o., will need swallow study before PO allowed (9) DVT prophylaxis Status: Acute Plan: SCDs only, will add Lovenox after CT head <Dinora Soto 05/12/18 10:46> - Assessment and Plan 68-year-old female currently undergoing chemotherapy for metastatic breast cancer , presents meeting SIRS criteria with excessive tachycardia, vomiting and diarrhea, and results are C. difficile positive with pyelonephritis on CT. <Dinora Soto 05/12/18 10:50> Discharge Planning: Discharge pending clinical improvement <Dinora Soto 05/12/18 10:46> - Attending Attestation The exam, history, and the medical decision-making described in the above note were completed with the assistance of the resident physician. I reviewed and agree with the findings presented. I attest that I had a [id number] encounter with the patient on the same day, and personally performed and documented my assessment and findings in the medical record.Viv WILDER <Chase Childress - 05/12/18 20:00>
--- NOTE | 2018-05-12 13:14 | P.PNADD ---
Addendum to Inpatient Note Reason for Addendum: Additional Documentation Additional information: KIT S: Responded to Kit at @1253 for 68y/o F patient w/hx of met breast cancer ( on chemo) admitted for sepsis and C.diff presenting w/AMS and sudden BP drop. Per nursing, patient has been awake and alert at baseline and was oriented overnight. Has been tachycardic since admission but BP has been 135-140s overnight and this morning at 4 am. At 8 am, BP was noted to start dropping, last recorded at 117/62. Received antibiotics this am. Was scheduled to have Lopressor given at 9 am but this was given early due to patient having continued tachycardia. Noted to be lethargic this morning by the day-team, CT head and dopplers were ordered. Labs were ordered but unable to be drawn due to difficulty obtaining access. At around noon, patient BP recorded at 93/65. Patient has been on IV fluids since admission at a rate of 155 mls/hr NS, though she continues to have diarrhea. Due to large drop in blood pressure occurring this morning in addition to continued lethargy, Kit was called and ICU was contacted by nursing for patient transfer. Pt denies pain, SOB, or chest pressure. Not able to answer most questions, breathing through mouth. O: Vitals T 98.8, Pulse 109, R 24, O2 93%, BP 93/65. Gen: Alert and oriented x1 (only to person), dyspneic, mumbling with eyes closed , pale Cardio: tachycardic, no JVD noted Lungs: no crackles, rhonchi, good airflow GI: no abdominal tenderness to palpation, obese EXT: no edema, no cyanosis A/P: 68 y/o F presenting w/AMS and BP drop. AMS since this morning w/BP drop from baseline to 93/65. On IV fluids @ maintenance rate. Has been tachycardic and dyspneic since admission. Troponins , CXR, and EKG on admission wnl. No hx of CAD, thromboembolism, or stroke. Diff: PE v CT v stroke/hemorrhage v intravascular depletion 2/2 dehydration - Order ABG, cardiac enzymes, CXR, and EKG - No I/Os recorded. Strict I/Os ordered. Per nursing, urinated 3 times this morning but amount not certain. - Con't to monitor BP. - 1L NS bolus and monitor for BP response - Discussed case w/Dr. Garza, willing to take consult and will monitor for further BP drop, which may warrant pressors
[2018-05-12] MEDS: LORazepam 1 MG Tablet PO SCH (13:51)
[2018-05-12] MEDS ORDERED: dilTIAZem 30 MG Tablet PO SCH (14:00)
[2018-05-12] MEDS ORDERED: Sod Chloride 0.9% Inj 1,000 ML IV.SIG ONE ×3 (14:07→16:29)
--- NOTE | 2018-05-12 14:13 | XR ---
EXAM DATE: 05/12/2018 1:53 PM EDT AGE/SEX: 68 years / Female INDICATIONS: Dyspnea. CLINICAL DATA: This is the patient's subsequent encounter. Patient reports that signs and symptoms h ave been present for 1 week and indicates a pain score of Nonresponsive. MEDICAL/SURGICAL HISTORY: . Carcinoma, breast, Metastatic disease. . Mastectomy, left, Tota l knee replacement, left, Total knee replacement, right, ORIF left femur. COMPARISON: C, CHEST 2V AP&LAT, 05/11/2018. . FINDINGS: [id number] unchanged in superior vena cava. Right upper lobe airspace disease is similar to May 11. Prior left-sided rib fractures noted. No effusion or pneumothorax. CONCLUSION: Right upper lobe airspace disease similar to May 11. Electronically signed by: Andrea Galicia MD 05/12/2018 2:12 PM EDT
--- NOTE | 2018-05-12 14:34 | P.CONCC ---
History of Present Illness Service: Critical care medicine Consult date: 05/12/18 Requesting Physician: Loli Waetrs Reason for Consult: Severe sepsis, AMS Primary Care Provider: MERLENE Flanagan Chief Complaint: AMS, hypotension History of Present Illness: Patient is a 68-year-old female with history of metastatic breast cancer currently undergoing chemotherapy by Dr. Zuñiga, last dose of chemotherapy on Monday, history of psoriatic arthritis who presented to the presentation was emergency department with nausea, vomiting and diarrhea of about 24 hour duration prior to presentation. At the [facility] apparently she was having productive cough and the physician there started on Levaquin. WBC count on 3.3 with 18% bands. Her creatinine was slightly elevated at 1.2. Stool studies revealed she was positive for C. difficile and also positive for Epid 027, for which she was receiving p.o. Flagyl. Patient also receiving broad-spectrum antibiotics with IV vancomycin and IV Zosyn for right upper lobe pneumonia on chest x-ray, and probable acute pyelonephritis. Today patient was found to be increasingly confused lethargic more tachycardic and hypotensive. Patient was given 1 L normal saline fluid bolus. With concern for worsening sepsis patient was moved to the ICU and critical care medicine was consulted. I immediately evaluated the patient she is tachycardic very lethargic but wakes up to stimulation. She has extensive skin mottling problem most likely from severe sepsis. Her CT abdomen pelvis yesterday was unremarkable other than pyelonephritis, abdominal exam shows only mild tenderness. However ABG shows a pH of 7.43, PCO2 15.3, PO2 56 and base excess of -14. CBC CMP lactic acid is pending at this time. I have discussed the case with Dr. Gonzalez from GI. Discontinue p.o. Flagyl, discontinue IV vancomycin. I will start her on Dificid and p.o. vancomycin. Continue aggressive fluid resuscitation, change maintenance fluid to bicarbonate infusion. Repeat CT of the abdomen pelvis due to severe acidosis. Her prognosis is guarded given her age, immunosuppressed state metastatic cancer and severe C. difficile. Review of Systems unobtainable due to mental condition PMFSH - History History Provided By: Patient - Medical History Medical History: Medical History (Last Updated 05/11/18 @ 15:11 by Loli Waters MD, R1) GERD (gastroesophageal reflux disease) Breast cancer Invasive lobular carcinoma of breast, stage 4 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 Psoriasis Psoriatic arthritis Restrictive lung disease - Surgical History Surgical History: Surgical History (Last Reviewed 05/11/18 @ 15:10 by Loli Waters MD, R1) H/O mastectomy History of knee replacement History of open reduction and internal fixation (ORIF) procedure Status post chemotherapy Status post radiation therapy - Family History Family History: Family History (Last Reviewed 04/12/18 @ 15:14 by Christi Almaraz MD) Mother Fibrosarcoma Father Liver disease - Tobacco History Second Hand Smoke Exposure: Yes Tobacco Use In Past 30 Days: No Smoking Status: Former smoker Tobacco Type: Cigarettes Packs Per Day: 0.5 (quit 8 weeks ago) - Alcohol History How Often Do You Have a Drink Containing Alcohol: Never - Substance Use History Substance History: No History of Abuse - Travel History Recent Travel in the [place] Within the Last 8 Weeks: No Recent Travel Out of the Country Within the Last 8 Weeks: No - Immunization History Tetanus Immunization: <5 Years Hx Influenza Vaccine This Season: No Medications and Allergies Active Medications: Active Medications Acetaminophen (Tylenol) 650 mg PO Q4H PRN PRN Reason: Temp > 100.4 Al Hydroxide/Mg Hydroxide (Milk Of Ale Liq) 30 ml PO Q12H PRN PRN Reason: Mild Constipation Albuterol (Duoneb Neb (Wendi)) 1 ampul NEB Q6HR NEB WENDI Bisacodyl (Dulcolax Supp) 10 mg RECTAL DAILY PRN PRN Reason: SEVERE CONSITIPATION Diltiazem HCl (Cardizem) 30 mg PO Q8HR WENDI Fidaxomicin (Dificid) 200 mg PO BID WENDI Sodium Chloride (Ns Inj) 1,000 mls @ 155 mls/hr IV.CONT .Q6H28M WENDI Last Infusion: 05/12/18 09:10 Dose: Infused Piperacillin/Tazobactam/Dextrose (Zosyn 4.5 Gm Premix) 4.5 gm in 100 mls @ 200 mls/hr IV.SIG Q6H WENDI Last Infusion: 05/12/18 11:44 Dose: Infused Sodium Chloride (Ns Inj) 1,000 mls @ 0 mls/hr IV.SIG BOLUS ONE Stop: 05/12/18 14:22 Azithromycin 500 mg/ Sodium (Chloride) 250 mls @ 250 mls/hr IV.SIG Q24H [facility] Lactulose (Lactulose Liq) 30 ml PO DAILY PRN PRN Reason: SEVERE CONSITIPATION Lorazepam (Ativan) 1 mg PO BID [facility] Last Admin: 05/12/18 13:51 Dose: Not Given Metoprolol Tartrate (Lopressor) 25 mg PO DAILY [facility] Last Admin: 05/12/18 09:23 Dose: Not Given Miscellaneous Information ([facility] Ordered Lab Info) 0 each OTHER ONCE ONE Stop: 05/14/18 01:46 Ondansetron HCl (Zofran Inj) 8 mg IV.PUSH Q8H PRN PRN Reason: VOMITING Last Admin: 05/12/18 09:24 Dose: 8 mg Pantoprazole Sodium (Protonix Inj) 40 mg IV.PUSH Q24H [facility] Last Admin: 05/11/18 17:34 Dose: 40 mg Pramipexole Dihydrochloride (Mirapex) 1 mg PO HS [facility] Last Admin: 05/11/18 22:19 Dose: 1 mg Sennosides (Senokot) 17.2 mg PO Q12H PRN PRN Reason: Moderate Constipation Sodium Chloride (Ns Flush) 2 ml IV.FLUSH PRN PRN PRN Reason: FLUSH AFTER USING IV ACCESS Last Admin: 05/11/18 14:27 Dose: 2 ml Temazepam (Restoril) 15 mg PO HS PRN PRN Reason: INSOMNIA Tramadol HCl (Ultram) 50 mg PO Q6H PRN PRN Reason: PAIN SCALE 1 TO 10 Vancomycin HCl (Vancomycin Po) 500 mg PO QID [facility] Allergies Allergy/AdvReac Type Severity Reaction Status Date / Time hydromorphone [From Dilaudid] AdvReac Intermediate Dizziness Verified 05/11/18 10:38 Home Medications Medication Instructions Recorded Confirmed Type levomilnacipran [Fetzima] 120 mg PO DAILY 04/12/18 05/11/18 History Lactobacillus rhamnosus GG 1 cap PO DAILY 05/11/18 05/11/18 History [Culturelle] dexamethasone 1 mg PO DAILY 05/11/18 05/11/18 History fluticasone 1 spray INTRANASAL DAILY 05/11/18 05/11/18 History levofloxacin 500 mg PO DAILY 05/11/18 05/11/18 History omeprazole 20 mg PO DAILY 05/11/18 05/11/18 History Physical Exam Vital signs: Vital Signs 05/11/18 16:15 05/11/18 16:50 05/11/18 17:00 Temperature 97.9 F Pulse Rate 132 H 126 H Respiratory Rate 24 22 Blood Pressure 116/62 145/63 H Pulse Oximetry 97 96 05/11/18 19:51 05/11/18 20:00 05/11/18 23:57 Temperature 99.4 F Pulse Rate 132 H 126 H 124 H Respiratory Rate 20 Blood Pressure 146/73 H Pulse Oximetry 100 05/12/18 00:00 05/12/18 04:00 05/12/18 08:00 Temperature 98.4 F 98 F 98.1 F Pulse Rate 127 H 131 H 113 H Respiratory Rate 22 24 22 Blood Pressure 146/86 H 122/76 117/61 Pulse Oximetry 97 98 93 L 05/12/18 12:00 Temperature 98.8 F Pulse Rate 109 H Respiratory Rate 24 Blood Pressure 93/65 L Pulse Oximetry 97 Intake & Output 05/11/18 05/12/18 05/12/18 18:59 06:59 18:59 Intake Total 1999 1617 / 1617 1100 / 1100 Output Total 0 / 0 Balance 1999 1617 / 1617 1100 / 1100 Weight 112.8 kg 111.5 kg Intake: IV 1999 1617 / 1617 1100 / 1100 NS Inj 1,000 ML @ 155 mls/hr IV 900 / 900 1000 / 1000 .CONT .Q6H28M WENDI Rx#:[id number] Zosyn 4.5 GM Premix 4.5 gm In 200 / 200 100 / 100 100 ml @ 200 mls/hr IV.SIG Q6H WENDI Rx#:[id number] NS Inj 1,000 ML @ Wide Open IV. 1999 SIG BOLUS ONE Rx#:[id number] Vancomycin Inj 1,700 MG In NS 517 / 517 Inj 500 ML @ 250 mls/hr IV.SIG Q18H WENDI Rx#:[id number] Oral 0 / 0 Output: Urine 0 / 0 Other: # Incontinent Voids 2 Date of Last Bowel Movement 05/12/18 # Incontinent Bowel Movements 2 Weight On Admission 112.8 kg Narrative: - Constitutional Patient lying in bed, lethargic with slurred speech. There is extensive skin mottling bilateral upper and lower extremities and over the abdomen - HEENT Exam Head: Present: normocephalic, atraumatic - Respiratory Exam Air entry equal but diminished bilaterally. No wheezes or crackles - Cardiovascular Exam Tachycardic rate, S1, S2. No murmur - Abdominal Exam Present: soft, normoactive bowel sounds, Mild tenderness diffusely -Skin There is extensive skin mottling, poorly perfused - Extremities Exam No edema - Routine Neurological Exam Patient is very lethargic with slurred speech. She is able to weakly follow commands but falls asleep almost immediately. Septic Shock Reassessment Septic shock perfusion: reassessment completed Assessment and Plan - Assessment and Plan Plan: ASSESSMENT: Severe sepsis Toxic metabolic encephalopathy Severe C. difficile colitis/epid 027 positive Hypotension Severe metabolic acidosis Hypoxia Right upper lobe pneumonia/healthcare associated Acute pyelonephritis Leukopenia secondary to chemotherapy Immunocompromised state Metastatic breast cancer PLAN: NEURO: -Minimize any sedation -Altered mentation secondary to toxic metabolic encephalopathy from severe sepsis -CT of the head negative for acute findings RESP: -DuoNeb every 6 hours as needed -ABG shows hypoxia and severe metabolic acidosis -Bicarb as below -Check ABG -Chest x-ray shows right upper lobe infiltrate -Continue Zosyn and add azithromycin, check urine for Legionella and pneumococcal antigen CV: -Normal saline IV fluids 2L bolus -Lactic acid stat and trend if high -Discontinue normal saline maintenance fluid and placed on bicarb infusion after 2 Amps/100 meq IV sodium bicarbonate GI: -C. difficile Epid 027 positive -Will discontinue current antibiotics vancomycin IV and p.o. Flagyl -Start Dificid and p.o. vancomycin. GI consult -Abdominal CT 05/11/18 did not show any evidence of severe colitis or toxic megacolon, but showed some evidence of acute pyelonephritis -Due to severe metabolic acidosis, I will repeat the CT abdomen pelvis without contrast -Keep n.p.o. except meds, NG tube if needed -Protonix 40 mg IV daily. -Zofran 8 mg IV q8 for Nausea : -Monitor renal function closely. Place Bhagat catheter. -See pyelonephritis treatment and I dissection -Continue aggressive fluid resuscitation ID: -Patient is severely septic and unable to mount leukocytosis due to chemotherapy -Follow-up blood urine and sputum cultures -Start Dificid and p.o. vancomycin for severe C Diff colitis -Continue Zosyn and add azithromycin, check urine for Legionella and pneumococcal antigen -Zosyn will cover also for pyelonephritis HEME: -Monitor CBC, coags -Oncology following. Follow-up CBC, PT/INR ENDO: -Electrolyte replacement per protocol -Sliding scale insulin if needed PROPH: -Bilateral lower extremity SCDs. Lovenox/Protonix LINES: -Utilize peripheral IVs, Mediport, central line if needed At this time patient is very critical. Her skin is extremely mottled and she has severe metabolic acidosis all related to severe sepsis. She required endotracheal intubation and mechanical ventilation aggressive resuscitation and pressor support. Continue ICU care prognosis guarded at this time CC time 78 min excluding procedures Code Status: Full Discussed Condition With: Patient, GI Dr. Gonzalez and bedside RN
--- NOTE | 2018-05-12 14:42 | CT ---
EXAM DATE: 05/12/2018 2:36 PM EDT AGE/SEX: 68 years / Female INDICATIONS: Altered mental status. CLINICAL DATA: This is the patient's initial encounter. Patient reports that signs and symptoms have been present for 1 day and indicates a pain score of Nonresponsive. MEDICAL/SURGICAL HISTORY: Carcinoma, breast. Deep venous thrombosis. Gastroesophageal reflux dise ase. None. RADIATION DOSE: 36.05 CTDI (mGy) [place] [facility] [place]. . TECHNIQUE: CT of the head without contrast. Using automated exposure control and adjustment of the mA and/or kV according to patient size, radiation dose was kept as low as reasonably achievable to ob tain optimal diagnostic quality images. DICOM format image data is available electronically for revi ew and comparison. FINDINGS: Cerebrum: The ventricles are normal for age. No evidence of midline shift, mass lesion, hemorrhage or acute infarction. No extraaxial fluid collections are seen. Posterior Fossa: The cerebellum and brainstem are intact. The 4th ventricle is midline. The cerebe llopontine angle is unremarkable. Extracranial: The visualized portion of the orbits is intact. Skull: The calvaria is intact. No evidence of skull fracture. CONCLUSION: 1. No acute intracranial abnormalities. Stable chronic white matter ischemic changes. . Electronically signed by: Andrea Galicia MD 05/12/2018 2:40 PM EDT
[2018-05-12 14:54] LABS: ABG Base Excess -13.6 mmol/L (-2-2); ABG PCO2 15 mmHg (38-42); ABG PO2 56 mmHG (61-120)
[2018-05-12] MEDS ORDERED: Azithromycin Inj 500 MG in Sodium Chlor 0.9% Inj 250 ML IV.SIG SCH (15:00)
[2018-05-12] MEDS ORDERED: Sodium Bicarbonate 8.4% Inj 50 MEQ/50 ML Syringe IV.PUSH ONE (15:02)
[2018-05-12 15:59] LABS: Baso % (Auto) 0.5 % (0.0-2.0); Eos % (Auto) 0.2 % (0.0-4.0); Hematocrit 35.5 % (35.0-46.0); Hemoglobin 11.7 gm/dL (11.6-15.3); Lymph % (Auto) 25.7 % (9.0-44.0); Mean Corpuscular HGB Conc 33.1 % (32.0-36.0); Mean Corpuscular Hemoglobin 30.1 pg (27.0-34.0); Mean Corpuscular Volume 90.8 fL (80.0-100.0); Mean Platelet Volume 9.6 fL (7.0-11.0); Mono # (Auto) 0.2 th/mm3 (0.0-0.9); Mono % (Auto) 5.8 % (0.0-8.0); Neut # (Auto) 2.6 th/mm3 (1.8-7.7); Neut % (Auto) 67.8 % (16.0-70.0); Platelet Count 138 th/mm3 (150-450); Red Blood Count 3.91 mil/mm3 (4.00-5.30); Red Cell Distribution Width 23.2 % (11.6-17.2); White Blood Count 3.9 th/mm3 (4.0-11.0)
[2018-05-12 16:10] LABS: Activated Partial Thrombo Time 33.5 sec (24.3-30.1); INR 1.3 Ratio; Prothrombin Time 13.3 sec (9.8-11.6)
[2018-05-12 16:44] LABS: Lymphocytes 18 % (9-44); Metamyelocytes 1 % (0-1); Monocytes 4 % (0-8)
--- NOTE | 2018-05-12 16:49 | MB ---
cc: Regis Banks MD, Hassan MD DATE: 05/12/2018 INDICATIONS FOR CONSULTATION: Severe C. difficile with sepsis. HISTORY OF PRESENT ILLNESS: Ms. Sellers is a 68-year-old lady who is on chemotherapy for metastatic breast cancer who basically got admitted for diarrhea, nausea, vomiting, found to have C. difficile with a toxic epit 027 positive. She was treated on the floor with Flagyl and vancomycin. Apparently, earlier today she became hypotensive. A code was called and she was transferred emergently to the intensive care unit. GI service consult has been requested for management for C. difficile. The patient is awake, but is drowsy. She does not appear to be in any apparent distress, but her lower extremities and the lower abdomen are mottled and cold. PAST MEDICAL HISTORY: Reflux disease, breast cancer, psoriasis, restrictive lung disease. PAST SURGICAL HISTORY: Mastectomy, knee replacement. Currently, the patient is receiving chemotherapy and radiotherapy. FAMILY HISTORY: Noncontributory. SOCIAL HISTORY: Secondhand exposure, was smoking until 8 weeks ago. No alcohol reported. MEDICATIONS: 1. Azithromycin. 2. Cardizem 3. Dificid was just started 4. Lopressor. 5. Protonix. 6. Zosyn. 7. Vancomycin p.o., which was just started. CT scan from yesterday showed a pyelonephritis and lung infiltrate. The colon itself appeared normal. No colon distention or colitis seen on the CT with IV contrast. PHYSICAL EXAMINATION: GENERAL: Reveals an elderly lady in no apparent distress. VITAL SIGNS: Stable. HEAD AND NECK: Anicteric sclerae. CHEST: Bilateral air entry with rales. ABDOMEN: Obese. Soft, nontender. There is some mottling on the lower abdominal wall. NEUROLOGIC: Nonfocal. RECTAL: Deferred at this time. IMPRESSION: Clostridium difficile colitis with sepsis. RECOMMENDATIONS: The patient's overall prognosis is poor. She is a chemotherapy patient with epit O27 positive Clostridium difficile colitis with sepsis. Antibiotics have been changed to include Dificid and vancomycin by mouth today. No evidence of toxin megacolon at this time. Repeat labs have been ordered. Depending on the patient's clinical course, may require a stool transfer versus immunotherapy. Case has been discussed with Dr. Eric. We will follow with you. MD RICHA Ortega , 02:55 PM , 03:00 PM
--- NOTE | 2018-05-12 17:09 | CT ---
EXAM DATE: 05/12/2018 5:02 PM EDT AGE/SEX: 68 years / Female INDICATIONS: Diffuse abdomen pain and diarrhea. CLINICAL DATA: This is the patient's initial encounter. Patient reports that signs and symptoms have been present for 1 day and indicates a pain score of 7/10. MEDICAL/SURGICAL HISTORY: Carcinoma, breast. Gastroesophageal reflux disease. Deep venous thr ombosis. None. RADIATION DOSE: 11.32 CTDI (mGy) ; Combined studies COMPARISON: [facility] – [place], [place] ABDOMEN & PELVIS W CONTRAST, 05/11/2018. . TECHNIQUE: Multiple contiguous axial images were obtained through the abdomen. Images were obtained using multiple row detector helical technique. Using automated exposure control and adjustment of the mA and/or kV according to patient size, radiation dose was kept as low as reasonably achievable to o btain optimal diagnostic quality images. DICOM format image data is available electronically for rev iew and comparison. FINDINGS: No focal lung consolidation. Minimal interstitial prominence. Moderate coronary calcifications. Small hiatal hernia. No acute findings within the liver, spleen, adrenals, or pancreas. No calcified gallstones or biliary ductal dilatation. Kidneys enhance somewhat heterogeneously, nonspecific. No pelvic masses or free fluid. Bhagat catheter present within decompressed bladder. There is mild mural thickening of the colon, especially the transverse colon which may indicate a mil d colitis. CONCLUSION: 1. Questionable mild mural thickening of the colon that could indicate a mild colitis, especially tr ansverse colon. 2. Heterogeneous renal parenchymal enhancement not as optimally evaluated as on prior study. Cannot exclude pyelonephritis. 3. Bhagat catheter in decompressed bladder. 4. Hiatal hernia. 5. Moderate coronary calcifications. Electronically signed by: Andrea Galicia MD 05/12/2018 5:08 PM EDT
[2018-05-12 17:13] LABS: Albumin 1.8 g/dL (3.4-5.0); Calcium 6.8 mg/dL (8.5-10.1); Carbon Dioxide 13.3 meq/L (21.0-32.0); Total Protein 5.5 g/dL (6.4-8.2); Troponin I 0.06 ng/mL (0.02-0.05)
[2018-05-12 17:14] LABS: Potassium 3.7 meq/L (3.5-5.1)
--- NOTE | 2018-05-12 17:15 | CT ---
EXAM DATE: 05/12/2018 5:03 PM EDT AGE/SEX: 68 years / Female INDICATIONS: Shortness of breath. CLINICAL DATA: This is the patient's initial encounter. Patient reports that signs and symptoms have been present for 1 day and indicates a pain score of 0/10. MEDICAL/SURGICAL HISTORY: Carcinoma, breast. Deep venous thrombosis. Gastroesophageal reflux dise ase. None. RADIATION DOSE: 11.32 CTDI (mGy) ; Combined studies COMPARISON: . TECHNIQUE: Multiple contiguous axial images were obtained through the chest without contrast. Image s were obtained in suspended respiration using multiple row detector helical technique. Using automa ortiz exposure control and adjustment of the mA and/or kV according to patient size, radiation dose was kept as low as reasonably achievable to obtain optimal diagnostic quality images. DICOM format imag e data is available electronically for review and comparison. FINDINGS: Lungs: There is new confluent opacity at the right lung apex associated mild bronchiectasis. This fi nding may represent pulmonary consolidation or scarring. The central bilateral groundglass opacity se en on the prior study of April 2017 is not seen on the current study. There is minimal groundglass opa [place] in the left upper lobe. No nodules or masses identified. Mediastinum: Extensive coronary artery calcification. No enlarged mediastinal lymph nodes. Thoracic aorta diameter is within normal limits. Pleurae: No evidence of focal thickening or pleural effusion. Axillae: Unremarkable. Bony Structures: Prominent degenerative findings of the thoracic spine. Miscellaneous: Gallbladder is distended. Upper abdomen otherwise unremarkable. CONCLUSION: 1. Confluent opacity in the right upper lobe that is new when compared to the prior study 2016. Morp hology would favor scarring. There is mild associated bronchiectasis. More acute consolidation is als o in the differential diagnosis. Neoplasm would be less likely but is in the differential diagnosis. Recommend a follow-up noncontrast chest CT confirm stability or resolution in 3 months. 2. Minimal nonspecific groundglass opacity in the left upper lobe. The prominent bilateral groundgla ss opacity seen on prior study of 2016 is not seen on today's study. Electronically signed by: Carlos Nieto MD 05/12/2018 5:14 PM EDT
[2018-05-12] MEDS: Sodium Bicarbonate 8.4% Inj 150 MEQ in Water for Inj, Sterile 850 ML IV.CONT SCH ×2 (18:07→21:50)
[2018-05-12 18:09] LABS: ABG Base Excess -7.1 mmol/L (-2-2); ABG PCO2 20 mmHg (38-42); ABG PO2 122 mmHG (61-120)
[2018-05-12] MEDS: Pantoprazole Inj 40 MG Vial IV.PUSH SCH (18:44)
[2018-05-12] MEDS: Enoxaparin Inj 40 MG/0.4 ML Syringe SQ SCH (18:47)
[2018-05-12] MEDS: Sod Chloride 0.9% Inj 1,000 ML IV.CONT SCH (18:49)
--- NOTE | 2018-05-12 20:55 | US ---
EXAM DATE: 05/12/2018 8:44 PM EDT AGE/SEX: 68 years / Female INDICATIONS: Bilateral leg swelling. CLINICAL DATA: This is the patient's initial encounter. Patient reports that signs and symptoms have been present for 1 day and indicates a pain score of 0/10. MEDICAL/SURGICAL HISTORY: Carcinoma, breast. Gastroesophageal reflux disease. Restrictive lung disease. Mastectomy, bilateral. Knee replacement. Open reduction and internal fixation procedure. Chemotherapy. Radiation therapy. COMPARISON: No prior exams available for comparison. TECHNIQUE: Venous ultrasound of both lower extremities was performed from the inguinal ligament to t he proximal calf. Real-time, color Doppler and spectral tracing, compression and augmentation techni ques were used. FINDINGS: Right Leg: Normal compression of the deep venous system from the inguinal region to the proximal mary kay f. No echogenic clot is seen. Normal response of the venous system to augmentation and respiration. Left Leg: Normal compression of the deep venous system from the inguinal region to the distal thigh. No echogenic clot is seen. Normal response of the venous system to augmentation and respiration. Lef t popliteal vein and peroneal vein not visualized as the patient unable to bend or liftleg. Other: None. CONCLUSION: No evidence of lower extremity DVT on the right or left. Electronically signed by: Carlos Nieto MD 05/12/2018 8:53 PM EDT
--- NOTE | 2018-05-12 22:02 | XR ---
EXAM DATE: 05/12/2018 9:49 PM EDT AGE/SEX: 68 years / Female INDICATIONS: NG tube placement. CLINICAL DATA: This is the patient's initial encounter. Patient reports that signs and symptoms have been present for 1 day and indicates a pain score of 0/10. MEDICAL/SURGICAL HISTORY: . Carcinoma, breast. Gastroesophageal reflux disease. Restrictive linda g disease. Chemotherapy. Radiation therapy. . Mastectomy, bilateral. Knee replacement. Open reducti on and internal fixation procedure. COMPARISON: No prior exams available for comparison. FINDINGS: Single supine view the abdomen. Nasogastric tube is in place and coiled in the stomach. Side-port is in the stomach. Tip is at the gastroesophageal junction. CONCLUSION: Nasogastric tube in the stomach with the tip at the gastroesophageal junction. Electronically signed by: Carlos Nieto MD 05/12/2018 10:01 PM EDT
[2018-05-13] MEDS: Sod Chloride 0.9% Inj 1,000 ML IV.CONT SCH ×2 (02:06→06:10)
--- NOTE | 2018-05-13 03:19 | MB ---
cc: Luis Ayers MD DATE: 05/12/2018 REASON FOR CONSULTATION: Consult requested by family practice resident for evaluation and management of metastatic breast cancer in a patient who is admitted with intractable nausea, vomiting, diarrhea and sepsis syndrome. HISTORY OF PRESENT ILLNESS: Lety is a 68-year-old white female. She is under the care of my associate, Dr. Ahsan Zuñiga. She is unable to give any history as the patient was just moved into the intensive care unit after a HaliCAT was called and the patient became hypotensive and appears really mottled. History is obtained through the review of the records. The patient was diagnosed with left breast cancer in 08/2015 when she used to live in [place]. 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 She was treated at [facility]. She underwent left modified radical mastectomy. The pathology report showed T2 N1mic M0. The 2 lymph nodes showed micrometastatic disease. According to the records, the patient had an Oncotype DX study and she was found to be at low risk for recurrent disease. She was started on anastrozole hormonal therapy. The patient subsequently moved to [place] about a year ago. In January 2018, the patient had a PET scan, which unfortunately showed multifocal bone metastasis including the cervical and thoracic spine. The C6 was severely involved. She had received radiation therapy and was started on Xgeva, Ibrance and Faslodex. While getting that treatment, she presented with more weakness and numbness of the right upper arm. Further studies showed that she has progressive disease in the cervical and thoracic spine. She was transferred to [facility] to get neurosurgical opinion. They have advised against surgery and recommended medical treatment. The patient was transferred back to [place]. She had been evaluated by radiation oncologist, Dr. Christensen. The patient had further radiation treatment. Dr. Zuñiga stopped the Ibrance and Faslodex due to progressive disease and started her on weekly Taxol chemotherapy. The patient has been on weekly Taxol chemotherapy for the last 2 months, which she is tolerating well according to the notes. The patient was sent to the emergency room from the assisted after she was found to have excessive nausea, vomiting and severe diarrhea. According to the notes, while at the assisted, she was complaining of cough with greenish phlegm. The in-house physician at the assisted prescribed Mucinex and Levaquin the day before yesterday. Yesterday, she noticed severe diarrhea with nausea and vomiting. She was brought into the emergency room. Her stools were positive for C. difficile by PCR. The patient was started on oral Flagyl. She was also treated for right upper lobe pneumonia and pyelonephritis, which was noted on the CT of the chest, abdomen and pelvis. The patient was apparently doing fine until this morning. She became lethargic and was confused to the family practice resident. They have initiated further workup of that with a CT of the head and Doppler ultrasound of the leg for DVT and possible CT angiogram for pulmonary embolism. The family practice resident had to called me and wanted to know her baseline mental status. I advised her that I have never seen this patient before and I am unable to give her that information for her baseline mental status. I advised her that according to the notes from yesterday. She was awake, alert, oriented x3. Something had happened this morning or overnight that she became confused and lethargic. She was admitted for sepsis. She was tachycardic, tachypneic and hypotensive. Clearly, she was going through severe sepsis syndrome. HaliCAT was called in as the patient was noted to have severe mottling of the legs and hands according to the ICU nurses. The patient was brought into the ICU,and I have spoken with the DIRECTOR OF MIDWIFERY/STAFF MIDWIFE who was part of [facility] response team. Phlebotomy Support Tech, Dr. Garza, is been consulted. The patient is now being managed by hard rock miner. The patient is severely acidotic and has lactic acidosis with bandemia. This is consistent with severe sepsis. She has severe hypoxia. The patient is getting bicarbonate and resuscitation measures at this time. The patient is still very confused. According to the ICU nurse, her skin mottling is improving somewhat with the oxygenation and other resuscitative measures. The patient is unable to give any history at this time due to change in mental status. REVIEW OF SYSTEMS: Not possible due to change in mental status. PAST MEDICAL HISTORY: Hypertension, obesity, psoriasis, restrictive lung disease, invasive lobular carcinoma of the left breast diagnosed in 08/2015, ER/AR positive, HER2/jack antigen negative. In 01/2018, the patient was found to have extensive bone metastasis including the C6 and thoracic spine for which she had received radiation therapy. PAST SURGICAL HISTORY: Left breast biopsy, followed by left breast mastectomy and left axillary lymph node dissection. Left femur open reduction internal fixation. Bilateral knee replacement. ALLERGIES: DILAUDID. MEDICATIONS: Prior to coming to the hospital were: 1. Weekly Taxol chemotherapy. 2. Aspirin. 3. Baclofen. 4. Metoprolol. 5. Mirapex. 6. Omeprazole. 7. Pravastatin. 8. Vitamin D. FAMILY HISTORY: Unable to obtain. 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 She is single. She used to smoke cigarettes, quit recently. She occasionally drinks alcohol. PHYSICAL EXAMINATION: GENERAL: A well-developed, acutely ill, white female, in moderate distress. VITAL SIGNS: Temperature 98.8, heart rate is 109, respiratory rate is 24. Blood pressure is 93/65. HEENT: PERRLA. EOMI. The patient is in respiratory distress and appears confused. NECK: No lymphadenopathy noted. LUNGS: Clear. No wheezing or rhonchi. HEART: Tachycardia with no murmur. ABDOMEN: Distended. EXTREMITIES: No pedal edema. NEUROLOGY: The patient is confused. SKIN: Severe mottling of the hand and lower legs noted. She has severe cyanosis. LABORATORY DATA: Reviewed in the EMR. RADIOLOGICAL STUDIES: Reviewed in the EMR. ASSESSMENT: 1. Severe sepsis syndrome with septic shock, lactic acidosis, metabolic acidosis and peripheral cyanosis. 2. Clostridium difficile colitis. 3. Pneumonia. 4. Pyelonephritis. 5. Metastatic breast cancer, currently on weekly Taxol chemotherapy. 6. Change in mental status due to metabolic encephalopathy. The CT scan of the brain is negative. PLAN: I have reviewed her available records and I have discussed with the patient's ICU nurses regarding her condition. The patient was on p.o. Flagyl for C. difficile colitis, which has now been changed to Dificid and p.o. vancomycin, also Zithromax has been added to Zosyn for the pneumonia. The patient is severely acidotic and she is getting bicarbonate drip. Her CBC showed white count 3.9, hemoglobin 11.7, platelets 138. The absolute neutrophil count is 2600. She does not have any neutropenia at this time. However, she has significant bandemia with 18% yesterday and today at 13%. She is at risk for DIC and worsening of her clinical status due to the severe sepsis. Her prognosis is guarded. The patient is hypoxic as well. If her condition does not improve, then the patient may require intubation. Her serum lactic acid is high at 4.2. Her creatinine is rising from 1.19 to 2.12. Her bicarbonate this morning is only 13. CT of the brain is negative. The change in mental status is due to metabolic encephalopathy. I have discussed with the family practice resident earlier in the day on the phone. Her prognosis is extremely poor, but we are hoping that she will respond to the current aggressive resuscitative measures. I will have her primary oncologist, Dr. Zuñiga, see her on Monday morning. Thank you for asking my opinion. MD ASHLYN Goel/milly , 01:18 AM , 01:46 AM MTDDaniel
[2018-05-13] MEDS: Sodium Bicarbonate 8.4% Inj 150 MEQ in Water for Inj, Sterile 850 ML IV.CONT SCH (03:23)
[2018-05-13] MEDS: Piperacil/Tazo 4.5 GM Premix 4.5 GM/100 ML BAG IV.SIG SCH ×4 (03:23→21:08)
--- NOTE | 2018-05-13 06:17 | XR ---
EXAM DATE: 05/13/2018 5:29 AM EDT AGE/SEX: 68 years / Female INDICATIONS: Shortness of breath. Possible respiratory disease. CLINICAL DATA: This is the patient's subsequent encounter. Patient reports that signs and symptoms h ave been present for 4 - 6 days and indicates a pain score of Nonresponsive. MEDICAL/SURGICAL HISTORY: . Carcinoma, breast, Metastatic disease. . Mastectomy, left, Total knee replacement, left, Total knee replacement, right, ORIF left femur. COMPARISON: [facility], CHEST 1V SINGLE AP, 05/12/2018. [facility], CHEST 1V SINGLE AP, 05/11/2018. [facility], CHEST 1 V SINGLE AP, 04/12/2018. [facility], CHEST 1V SINGLE AP, 04/16/2018. . FINDINGS: [id number] catheter tip in the mid superior vena cava. The lungs are symmetrically aerated. Persis tent ill-defined opacity in the right upper lung stable from 05/11/2018. Stable left rib fractures. The heart is normal in size. Moderate tortuosity descending thoracic aorta. CONCLUSION: Persistent right upper lung opacity/infiltrate. No new findings. Electronically signed by: Basim Glover MD 05/13/2018 6:16 AM EDT
--- NOTE | 2018-05-13 08:53 | ECG ---
Date Performed: 05/12/2018 Time Performed: 17:22:39 PTAGE: 68 years EKG: SINUS TACHYCARDIA POSSIBLE INFERIOR MYOCARDIAL INFARCTION , OF INDETERMINATE AGE MODERATE T -WAVE ABNORMALITY, CONSIDER LATERAL ISCHEMIA ABNORMAL ECG Since the PREVIOUS TRACING , no significant change noted PREVIOUS TRACIN05/11/2018 09.00 DOCTOR: Genia Diana Interpretating Date/Time 05/13/2018 08:51:58
[2018-05-13 08:56] LABS: Hematocrit 35.5 % (35.0-46.0); Hemoglobin 11.8 gm/dL (11.6-15.3); Mean Corpuscular HGB Conc 33.2 % (32.0-36.0); Mean Corpuscular Hemoglobin 29.5 pg (27.0-34.0); Mean Corpuscular Volume 88.6 fL (80.0-100.0); Mean Platelet Volume 10.1 fL (7.0-11.0); Platelet Count 164 th/mm3 (150-450); Red Blood Count 4.01 mil/mm3 (4.00-5.30); White Blood Count 3.2 th/mm3 (4.0-11.0)
[2018-05-13 09:08] LABS: Albumin 1.9 g/dL (3.4-5.0); Calcium 6.1 mg/dL (8.5-10.1); Carbon Dioxide 26.8 meq/L (21.0-32.0); Magnesium 1.9 mg/dL (1.5-2.5)
[2018-05-13 09:17] LABS: Total Protein 5.7 g/dL (6.4-8.2)
[2018-05-13 09:18] LABS: Potassium 2.5 meq/L (3.5-5.1)
[2018-05-13] MEDS ORDERED: Potassium Phosphate 500 MG Soluble Tablet PO PRN (09:33)
[2018-05-13] MEDS ORDERED: Sodium Phosphate Inj 30 MMOL in Sodium Chlor 0.9% Inj 250 ML IV.SIG PRN (09:33)
[2018-05-13] MEDS ORDERED: Magnesium Oxide 400 MG Tablet PO PRN (09:33)
[2018-05-13] MEDS ORDERED: Potassium Phosphate Inj 30 MMOL in Sodium Chlor 0.9% Inj 250 ML IV.SIG PRN (09:33)
[2018-05-13] MEDS ORDERED: Potassium Chloride 20 MEQ Pwd Pkt NG/OG ONE (09:33)
[2018-05-13] MEDS ORDERED: Potassium Chloride 25 MEQ Effervescent Tablet PO PRN (09:33)
[2018-05-13] MEDS ORDERED: Magnesium Sulfate Inj 2 GM in Sodium Chlor 0.9% Inj 96 ML IV.SIG PRN (09:33)
[2018-05-13] MEDS ORDERED: Potassium Chlor 20 mEq Premix 20 MEQ/100 ML PIGGYBACK IV.SIG PRN ×2 (09:33)
[2018-05-13] MEDS ORDERED: Potassium Chlor 40 mEq Premix 40 MEQ/100 ML PIGGYBACK IV.SIG PRN (09:33)
[2018-05-13] MEDS ORDERED: Magnesium Sulfate Inj 4 GM in Sodium Chlor 0.9% Inj 92 ML IV.SIG PRN (09:33)
[2018-05-13] MEDS ORDERED: Calcium Chloride Inj 2 GM in Sodium Chlor 0.9% Inj 100 ML IV.SIG ONE (09:39)
--- NOTE | 2018-05-13 09:46 | P.PNCC ---
Subjective Subjective Remarks/Hospital Course: Patient is a 68-year-old female with history of metastatic breast cancer currently undergoing chemotherapy by Dr. Zuñiga, last dose of chemotherapy on Monday, history of psoriatic arthritis who presented to the presentation was emergency department with nausea, vomiting and diarrhea of about 24 hour duration prior to presentation. At the senior living apparently she was having productive cough and the physician there started on Levaquin. WBC count on 3.3 with 18% bands. Her creatinine was slightly elevated at 1.2. Stool studies revealed she was positive for C. difficile and also positive for Epid 027, for which she was receiving p.o. Flagyl. Patient also receiving broad-spectrum antibiotics with IV vancomycin and IV Zosyn for right upper lobe pneumonia on chest x-ray, and probable acute pyelonephritis. Today patient was found to be increasingly confused lethargic more tachycardic and hypotensive. Patient was given 1 L normal saline fluid bolus. With concern for worsening sepsis patient was moved to the ICU and critical care medicine was consulted. I immediately evaluated the patient she is tachycardic very lethargic but wakes up to stimulation. She has extensive skin mottling problem most likely from severe sepsis. Her CT abdomen pelvis yesterday was unremarkable other than pyelonephritis, abdominal exam shows only mild tenderness. However ABG shows a pH of 7.43, PCO2 15.3, PO2 56 and base excess of -14. CBC CMP lactic acid is pending at this time. I have discussed the case with Dr. Gonzalez from GI. Discontinue p.o. Flagyl, discontinue IV vancomycin. I will start her on Dificid and p.o. vancomycin. Continue aggressive fluid resuscitation, change maintenance fluid to bicarbonate infusion. Repeat CT of the abdomen pelvis due to severe acidosis. Her prognosis is guarded given her age, immunosuppressed state metastatic cancer and severe C. difficile. SUBJ 8/5: Remains critical but mentation is slightly improved. Remains tachycardic in 120s. Creatinine now 1.8. Lactic acid 3.9. Will give additional fluid bolus. Started on po Dificid and p.o. vancomycin yesterday via OG tube. There is no evidence of toxic megacolon at this time but wit the elevated creatinine patient has severe C. difficile colitis Objective Vital Signs / I&O: Vital Signs 05/12/18 12:00 05/12/18 16:00 05/12/18 17:25 Temperature 98.8 F Pulse Rate 109 H 96 H 106 H Respiratory Rate 24 18 Blood Pressure 93/65 L Pulse Oximetry 97 05/12/18 20:00 05/12/18 21:42 05/13/18 00:00 Temperature 100.8 F H 100.2 F H Pulse Rate 109 H 118 H 119 H Respiratory Rate 21 16 28 H Blood Pressure 117/56 L 103/55 L Pulse Oximetry 98 96 96 05/13/18 03:57 05/13/18 04:00 05/13/18 07:00 Temperature 98.5 F Pulse Rate 117 H 119 H 110 H Respiratory Rate 20 26 H 20 Blood Pressure 133/62 Pulse Oximetry 97 05/13/18 08:00 Temperature 98.6 F Pulse Rate 125 H Respiratory Rate 22 Blood Pressure 135/59 L Pulse Oximetry 95 Intake & Output 05/12/18 05/13/18 05/13/18 18:59 06:59 18:59 Intake Total 4200 / 4200 2200 / 2200 0 / 0 Output Total 0 / 0 1000 / 1000 1000 / 1000 Balance 4200 / 4200 1200 / 1200 -1000 / -1000 Weight 110.5 kg Intake: IV 4200 / 4200 2200 / 2200 NS Inj 1,000 ML @ 155 mls/hr IV 1000 / 1000 .CONT .Q6H28M [facility] Rx#:[id number] Sodium Bicarbonate 8.4% Inj 150 2000 / 2000 MEQ In Sterile Water for Inj 850 ML @ 150 mls/hr IV.CONT . Q6H40M [facility] Rx#:[id number] Zosyn 4.5 GM Premix 4.5 gm In 200 / 200 200 / 200 100 ml @ 200 mls/hr IV.SIG Q6H [facility] Rx#:[id number] NS Inj 1,000 ML @ Wide Open IV. 3000 / 3000 SIG BOLUS ONE Rx#:[id number] Oral 0 / 0 0 / 0 0 / 0 Output: Urine 0 / 0 0 / 0 Stool 600 / 600 600 / 600 Urine Amount (Catheter) 400 / 400 400 / 400 Indwelling Urethral Catheter 400 / 400 400 / 400 Other: # Incontinent Voids 2 2 Date of Last Bowel Movement 05/12/18 05/13/18 05/13/18 # Incontinent Bowel Movements 2 2 Result Diagrams: 05/13/18 08:33 05/13/18 08:33 Objective Remarks: - Constitutional Patient lying in bed, lethargic with slurred speech. Appears critical tachycardic but mottling of the skin has improved - HEENT Exam Head: normocephalic, atraumatic - Respiratory Exam Air entry equal but diminished bilaterally. No wheezes or crackles - Cardiovascular Exam Tachycardic rate, S1, S2. No murmur - Abdominal Exam Present: soft, normoactive bowel sounds, tenderness predominantly in the right upper quadrant -Skin There is extensive skin mottling, poorly perfused - Extremities Exam No edema - Routine Neurological Exam Patient is lethargic with slurred speech. She is able to weakly follow commands. She is oriented to person she also knows that she is in [place] Assessment and Plan - Assessment and Plan Plan: ASSESSMENT: Septic shock Toxic metabolic encephalopathy Severe C. difficile colitis/epid 027 positive Acute kidney failure Lactic acidosis Respiratory insufficiency Right upper lobe pneumonia/healthcare associated Acute pyelonephritis Leukopenia secondary to chemotherapy Immunocompromised state Metastatic breast cancer PLAN: NEURO: -Minimize any sedation -Altered mentation secondary to toxic metabolic encephalopathy from severe sepsis -CT of the head negative for acute findings RESP: -DuoNeb every 6 hours as needed -Metabolic acidosis improved with resuscitation, DC bicarb infusion -Chest x-ray shows right upper lobe infiltrate -Continue Zosyn and DC azithromycin, urine for Legionella and pneumococcal antigen negative CV: -Normal saline IV fluids additional 1L bolus -Lactic acid now 3.9, repeat afternoon -Discontinue bicarb infusion and placed on normal saline with 40 M EQ KCl at 100 mL/h GI: -C. difficile Epid 027 positive -Continue Dificid and p.o. vancomycin. GI following -Abdominal CT 05/11/18 did not show any evidence of severe colitis or toxic megacolon, but showed some evidence of acute pyelonephritis -Repeat CT without contrast 05/12/2018 mild colitis -Keep n.p.o. except meds, NG tube -Protonix 40 mg IV daily. -Zofran 8 mg IV q8 for Nausea : -Monitor renal function closely. Bhagat catheter. -See pyelonephritis treatment in ID section -Continue aggressive fluid resuscitation ID: -Patient is severely septic and unable to mount leukocytosis due to chemotherapy -Follow-up blood urine and sputum cultures. Urine Legionella and pneumococcal antigen negative -Continue PO Dificid and p.o. vancomycin for severe C Diff colitis -Continue Zosyn and DC azithromycin -Zosyn will cover pneumonia and pyelonephritis HEME: -Monitor CBC, coags -Oncology following. Follow-up CBC, PT/INR ENDO: -Electrolyte replacement per protocol -Sliding scale insulin if needed PROPH: -Bilateral lower extremity SCDs. Lovenox/Protonix LINES: -Utilize peripheral IVs, Mediport, central line if needed Patient remains critical from severe C. difficile colitis, septic shock and severe metabolic acidosis. Continue ICU care prognosis guarded at this time CC time 38 min excluding procedures Code Status: Full
[2018-05-13 09:55] LABS: Lymphocytes 35 % (9-44); Metamyelocytes 1 % (0-1); Monocytes 8 % (0-8)
[2018-05-13 09:56] LABS: Ovalocytes 1+
[2018-05-13 09:57] LABS: Acanthocytes Occ; Platelet Estimate Normal (Normal); Platelet Morphology Normal (Normal)
[2018-05-13 09:58] LABS: Toxic Granulation 1+; Toxic Vacuolation Present
--- NOTE | 2018-05-13 10:15 | P.PNFP ---
Subjective Interval history: Patient seen and examined bedside this morning. Patient is currently awake, alert, oriented 3. She has an NG tube placed. She is in soft restraints because she attempted to pull her NG tube out overnight. She has a rectal tube placed and green liquid is in the rectal bag. There has been much improvement overnight and her mental status per nursing. Results - Labs Result diagrams: 05/13/18 08:33 05/13/18 08:33 Abnormal lab results 05/12/18 05/12/18 05/12/18 Range/Units 12:54 14:30 14:35 WBC (4.0-11.0) th/mm3 RBC (4.00-5.30) mil/mm3 RDW (11.6-17.2) % Plt Count (150-450) th/mm3 Band Neuts % (Manual) (0-6) % PT (9.8-11.6) sec APTT (24.3-30.1) sec O2 Saturation 87 L* (90-100) % ABG pH 7.44 H (7.380-7.420) ABG pCO2 15 L* (38-42) mmHg ABG pO2 56 L* (61-120) mmHG ABG HCO3 10 L* (22-26) mmol/L ABG Base Excess -13.6 L (-2-2) mmol/L Hemoglobin 11.9 L (12.0-16.0) G/DL Sodium (136-145) meq/L Potassium (3.5-5.1) meq/L Chloride 118 H D (98-107) meq/L Carbon Dioxide 13.3 L (21.0-32.0) meq/L BUN 29 H (7-18) mg/dL Creatinine 2.12 H (0.50-1.00) mg/dL Estimated GFR 23 L (>89) mL/min POC Glucose 117 H (68-110) mg/dl Random Glucose 128 H (74-106) mg/dL Lactic Acid (0.4-2.0) mmol/L Calcium 6.8 L* D (8.5-10.1) mg/dL Prot Corrected Calcium 7.6 L (8.5-10.1) mg/dL Total Bilirubin 1.4 H (0.2-1.0) mg/dL AST (15-37) U/L Troponin I 0.06 H (0.02-0.05) ng/mL Total Protein 5.5 L D (6.4-8.2) g/dL Albumin 1.8 L D (3.4-5.0) g/dL Lipase 20 L (73-393) U/L 05/12/18 05/12/18 05/12/18 Range/Units 15:32 15:32 15:32 WBC 3.9 L (4.0-11.0) th/mm3 RBC 3.91 L (4.00-5.30) mil/mm3 RDW 23.2 H (11.6-17.2) % Plt Count 138 L D (150-450) th/mm3 Band Neuts % (Manual) 13 H (0-6) % PT 13.3 H (9.8-11.6) sec APTT 33.5 H (24.3-30.1) sec O2 Saturation (90-100) % ABG pH (7.380-7.420) ABG pCO2 (38-42) mmHg ABG pO2 (61-120) mmHG ABG HCO3 (22-26) mmol/L ABG Base Excess (-2-2) mmol/L Hemoglobin (12.0-16.0) G/DL Sodium (136-145) meq/L Potassium (3.5-5.1) meq/L Chloride (98-107) meq/L Carbon Dioxide (21.0-32.0) meq/L BUN (7-18) mg/dL Creatinine (0.50-1.00) mg/dL Estimated GFR (>89) mL/min POC Glucose (68-110) mg/dl Random Glucose (74-106) mg/dL Lactic Acid 4.2 H* (0.4-2.0) mmol/L Calcium (8.5-10.1) mg/dL Prot Corrected Calcium (8.5-10.1) mg/dL Total Bilirubin (0.2-1.0) mg/dL AST (15-37) U/L Troponin I (0.02-0.05) ng/mL Total Protein (6.4-8.2) g/dL Albumin (3.4-5.0) g/dL Lipase (73-393) U/L 05/12/18 05/12/1818 Range/Units 17:50 20:55 08:33 WBC 3.2 L (4.0-11.0) th/mm3 RBC (4.00-5.30) mil/mm3 RDW 23.0 H (11.6-17.2) % Plt Count (150-450) th/mm3 Band Neuts % (Manual) (0-6) % PT (9.8-11.6) sec APTT (24.3-30.1) sec O2 Saturation (90-100) % ABG pH 7.50 H (7.380-7.420) ABG pCO2 20 L* (38-42) mmHg ABG pO2 122 H (61-120) mmHG ABG HCO3 16 L* (22-26) mmol/L ABG Base Excess -7.1 L (-2-2) mmol/L Hemoglobin (12.0-16.0) G/DL Sodium (136-145) meq/L Potassium (3.5-5.1) meq/L Chloride (98-107) meq/L Carbon Dioxide (21.0-32.0) meq/L BUN (7-18) mg/dL Creatinine (0.50-1.00) mg/dL Estimated GFR (>89) mL/min POC Glucose (68-110) mg/dl Random Glucose (74-106) mg/dL Lactic Acid 4.4 H* (0.4-2.0) mmol/L Calcium (8.5-10.1) mg/dL Prot Corrected Calcium (8.5-10.1) mg/dL Total Bilirubin (0.2-1.0) mg/dL AST (15-37) U/L Troponin I (0.02-0.05) ng/mL Total Protein (6.4-8.2) g/dL Albumin (3.4-5.0) g/dL Lipase (73-393) U/L 05/13/18 05/13/18 Range/Units 08:33 08:33 WBC (4.0-11.0) th/mm3 RBC (4.00-5.30) mil/mm3 RDW (11.6-17.2) % Plt Count (150-450) th/mm3 Band Neuts % (Manual) (0-6) % PT (9.8-11.6) sec APTT (24.3-30.1) sec O2 Saturation (90-100) % ABG pH (7.380-7.420) ABG pCO2 (38-42) mmHg ABG pO2 (61-120) mmHG ABG HCO3 (22-26) mmol/L ABG Base Excess (-2-2) mmol/L Hemoglobin (12.0-16.0) G/DL Sodium 146 H (136-145) meq/L Potassium 2.5 L* D (3.5-5.1) meq/L Chloride (98-107) meq/L Carbon Dioxide (21.0-32.0) meq/L BUN 31 H (7-18) mg/dL Creatinine 1.81 H (0.50-1.00) mg/dL Estimated GFR 28 L (>89) mL/min POC Glucose (68-110) mg/dl Random Glucose 160 H (74-106) mg/dL Lactic Acid 3.9 H (0.4-2.0) mmol/L Calcium 6.1 L* (8.5-10.1) mg/dL Prot Corrected Calcium 6.7 L* D (8.5-10.1) mg/dL Total Bilirubin 1.2 H (0.2-1.0) mg/dL AST 51 H (15-37) U/L Troponin I (0.02-0.05) ng/mL Total Protein 5.7 L (6.4-8.2) g/dL Albumin 1.9 L (3.4-5.0) g/dL Lipase (73-393) U/L Short CBC 05/12/18 05/13/18 Range/Units 15:32 08:33 WBC 3.9 L 3.2 L (4.0-11.0) th/mm3 Hgb 11.7 D 11.8 (11.6-15.3) gm/dL Hct 35.5 35.5 (35.0-46.0) % Plt Count 138 L D 164 (150-450) th/mm3 BMP 05/12/18 05/13/18 14:30 08:33 Sodium 145 146 H Potassium 3.7 2.5 L* D Chloride 118 H D 107 D Carbon Dioxide 13.3 L 26.8 D BUN 29 H 31 H Creatinine 2.12 H 1.81 H Calcium 6.8 L* D 6.1 L* Cardiac Enzymes 05/12/18 Range/Units 14:30 Total Creatine Kinase 52 (26-192) U/L Troponin I 0.06 H (0.02-0.05) ng/mL Liver Function 05/12/18 05/13/18 Range/Units 14:30 08:33 Total Bilirubin 1.4 H 1.2 H (0.2-1.0) mg/dL AST 26 51 H (15-37) U/L ALT 20 36 (10-53) U/L Alkaline Phosphatase 95 90 (45-117) U/L Albumin 1.8 L D 1.9 L (3.4-5.0) g/dL - Imaging Impressions Chest CT 05/12/18 00:00 CONCLUSION: 1. Confluent opacity in the right upper lobe that is new when compared to the prior study 2016. Morphology would favor scarring. There is mild associated bronchiectasis. More acute consolidation is also in the differential diagnosis. Neoplasm would be less likely but is in the differential diagnosis. Recommend a follow-up noncontrast chest CT confirm stability or resolution in 3 months. 2. Minimal nonspecific groundglass opacity in the left upper lobe. The prominent bilateral groundglass opacity seen on prior study of 2017 is not seen on today's study. Head CT 05/12/18 00:00 CONCLUSION: 1. No acute intracranial abnormalities. Stable chronic white matter ischemic changes. . Venous Doppler Study 05/12/18 00:00 CONCLUSION: No evidence of lower extremity DVT on the right or left. Chest X-Ray 05/12/18 13:35 CONCLUSION: Right upper lobe airspace disease similar to May 3. Abdomen/Pelvis CT 05/12/18 15:00 CONCLUSION: 1. Questionable mild mural thickening of the colon that could indicate a mild colitis, especially transverse colon. 2. Heterogeneous renal parenchymal enhancement not as optimally evaluated as on prior study. Cannot exclude pyelonephritis. 3. Bhagat catheter in decompressed bladder. 4. Hiatal hernia. 5. Moderate coronary calcifications. Abdomen X-Ray 05/12/18 21:10 CONCLUSION: Nasogastric tube in the stomach with the tip at the gastroesophageal junction. Chest X-Ray 05/13/18 06:00 CONCLUSION: Persistent right upper lung opacity/infiltrate. No new findings. Physical Exam Vital signs: Vital Signs 05/12/18 12:00 05/12/18 16:00 05/12/18 17:25 Temperature 98.8 F Pulse Rate 109 H 96 H 106 H Respiratory Rate 24 18 Blood Pressure 93/65 L Pulse Oximetry 97 05/12/18 20:00 05/12/18 21:42 05/13/18 00:00 Temperature 100.8 F H 100.2 F H Pulse Rate 109 H 118 H 119 H Respiratory Rate 21 16 28 H Blood Pressure 117/56 L 103/55 L Pulse Oximetry 98 96 96 05/13/18 03:57 05/13/18 04:00 05/13/18 07:00 Temperature 98.5 F Pulse Rate 117 H 119 H 110 H Respiratory Rate 20 26 H 20 Blood Pressure 133/62 Pulse Oximetry 97 05/13/18 08:00 Temperature 98.6 F Pulse Rate 125 H Respiratory Rate 22 Blood Pressure 135/59 L Pulse Oximetry 95 Intake & Output 05/12/18 05/13/18 05/13/18 18:59 06:59 18:59 Intake Total 4200 / 4200 2200 / 2200 0 / 0 Output Total 0 / 0 1000 / 1000 1000 / 1000 Balance 4200 / 4200 1200 / 1200 -1000 / -1000 Weight 110.5 kg Intake: IV 4200 / 4200 2200 / 2200 NS Inj 1,000 ML @ 155 mls/hr IV 1000 / 1000 .CONT .Q6H28M WILFREDO Rx#:[id number] Sodium Bicarbonate 8.4% Inj 150 2000 / 2000 MEQ In Sterile Water for Inj 850 ML @ 150 mls/hr IV.CONT . Q6H40M WILFREDO Rx#:[id number] Zosyn 4.5 GM Premix 4.5 gm In 200 / 200 200 / 200 100 ml @ 200 mls/hr IV.SIG Q6H [facility]ILFREDO Rx#:[id number] NS Inj 1,000 ML @ Wide Open IV. 3000 / 3000 SIG BOLUS ONE Rx#:[id number] Oral 0 / 0 0 / 0 0 / 0 Output: Urine 0 / 0 0 / 0 Stool 600 / 600 600 / 600 Urine Amount (Catheter) 400 / 400 400 / 400 Indwelling Urethral Catheter 400 / 400 400 / 400 Other: # Incontinent Voids 2 2 Date of Last Bowel Movement 05/12/18 05/13/18 05/13/18 # Incontinent Bowel Movements 2 2 - Constitutional mild distress (50% of phrases are understandable, patient appears to be uncomfortable with mild tachypnea) - Routine Respiratory Exam Present: CTA bilaterally (Auscultated anteriorly), respiratory distress ( Slightly tachypneic with respiratory rate of 22). Absent: accessory muscle use , decreased breath sounds - Routine Cardiovascular Exam Present: RRR, S1, S2, tachycardia - Routine Abdominal Exam Present: soft, normoactive bowel sounds. Absent: tenderness, distended, guarding - Routine Skin Exam Present: intact. Absent: mottling - Routine Neurological Exam Present: alert, oriented X3 - Detailed Neurological Exam: Coma Scale Eye Opening: Spontaneous Verbal Response: Confused (Still partially confused) Motor Response: Obey commands Mcclellan Coma Scale Total: 14 - Routine Psychiatric Exam Present: normal affect, normal thought process - Urinary Catheter Management Indwelling Urethral Catheter Cath placed during this visit: yes Reason for continuing: Hourly intake/output Insertion date: 05/12/18 Insertion time: 15:00 Assessment and Plan - Assessment (1) SIRS (systemic inflammatory response syndrome) Code(s): R65.10 - Systemic inflammatory response syndrome (SIRS) of non- infectious origin without acute organ dysfunction Status: Acute Plan: Signs of severe sepsis with altered mental status, tachycardia, hypotension, skin mottling Transferred to ICU on 05/12 at 1400, follow-up recommendations of heater room helper HR 125, BP 135/59, improved mental status this morning Possible source of sepsis includes pneumonia, C. difficile colitis, bacteremia, pyelonephritis IV Vanc, Zosyn, and PO Flagyl (05/11-05/12) Per consult with GI and Critical Care MD, Continue on IV Zosyn, with PO Vanc and PO Dificid (05/12 - ) Chest x-ray today shows sustained right upper lobe opacity Repeat CT abdomen showed no change, possible pyelonephritis Venous Doppler negative, low suspicion for PE at this time given improvement with IV fluids and NG tube placement Blood cultures negative 1 day WBC stable On admission HR:143, RR:28, Bands: 18. Meets 3 out of 5 SIRS criteria. Unknown source of infection. Vancomycin and Zosyn added empirically for coverage. UA and Culture ordered. Follow Up. Chest Xray: Right upper lobe consolidation Blood cultures ordered, follow-up. CT of abdomen x 2; probable pyelonephritis as above, versus interstitial nephritis versus renal infarction versus renal lymphoma. 5 mm calcification could represent appendicolith Lipase negative Follow-up sputum culture. Urine strep pneumo antigen and Legionella antigens negative Continue to monitor vitals every 4. Follow-up CBC this a.m. Follow-up CMP in a.m. (2) Pneumonia Code(s): J18.9 - Pneumonia, unspecified organism Status: Acute Plan: Continue treatment for nosocomial pneumonia, mcfp related Continue IV Zosyn, p.o. vancomycin as above Chest x-ray 05/12: No change Chest x-ray 05/11: Right upper lobe consolidation most characteristic of pneumonia (3) Vomiting and diarrhea Code(s): R11.10 - Vomiting, unspecified; R19.7 - Diarrhea, unspecified Status : Acute Plan: C. difficile positive, epit 027 positive Follow-up recommendations of GI; Dificid and vancomycin p.o., no evidence of toxic megacolon at this time -Patient may require stool transfer versus immunotherapy, poor prognosis CT negative 2 for any gallbladder pathology or obstruction mass s/p Flagyl 500 mg p.o. every 8 hours scheduled, monitor for vomiting, should be 10-14 day course (05/11-05/12) Will monitor for improvement Patient actively having dark green liquid stool Protonix 40 mg IV daily. Zofran 8 mg IV q8 for Nausea Continue to monitor CMP for any electrolyte abnormalities due to vomiting and diarrhea. (4) Pyelonephritis Code(s): N12 - Tubulo-interstitial nephritis, not specified as acute or chronic Status: Acute Plan: Possible pyelonephritis on CT versus renal infarction Continue empirical antibiotic treatment as above (5) Leukopenia due to antineoplastic chemotherapy Code(s): D70.1 - Agranulocytosis secondary to cancer chemotherapy; T45.1X5A - Adverse effect of antineoplastic and immunosuppressive drugs, initial encounter Status: Acute Plan: WBC: 3.3 on admission. Possibly due to patient being on chemotherapy. Patient is currently afebrile. Oncology consulted. Appreciate recommendations. Patient's private oncologist Dr. Zuñiga will come see her tomorrow morning, update us on baseline mental status for this patient Follow-up CBC, PT/INR, CMP in a.m. Continue to monitor vitals every 4. (6) Tachycardia Code(s): R00.0 - Tachycardia, unspecified Status: Acute Plan: On telemetry bedside today, patient appears to be in A. fib with RVR, HR 123 Coumadin 5 mg p.o. daily started by clinical program manager Dr. Leavitt overnight, however patient did not receive meds bc no NG tube Lovenox 40mg SQ continued for now, likely planning to bridge Follow-up recommendations of heater room helper (7) MARIELA (acute kidney injury) Code(s): N17.9 - Acute kidney failure, unspecified Status: Acute Plan: Creatinine increased, likely due to CT 2 on 05/12, creatinine this morning 1.81 Caution with IV contrast, nephrotoxins, NSAIDs Cr: 1.19 on admission. Baseline: 0.67 Possibly due to dehydration due to vomiting and diarrhea Continue rehydration with fluids. Follow-up CMP in a.m. (8) Metastatic breast cancer Code(s): C50.919 - Malignant neoplasm of unspecified site of unspecified female breast Status: Chronic Plan: Currently followed by Dr. Zuñiga, oncology. Worsening mental status today Spoke with Dr. Ayers, follow-up with Dr. Zuñiga tomorrow morning CT of abdomen with contrast: no additional tumors revealed CT head w/ and w/out IV contrast: No evidence of brain metastases. Stable chronic white matter ischemic changes Continue to treat for infxn Oncology consulted. Appreciate recommendations. (9) Nutrition, metabolism, and development symptoms Code(s): R63.8 - Other symptoms and signs concerning food and fluid intake Status: Acute Plan: Fluids: N.p.o., with NG tube Electrolytes: Monitor and Replete as needed Diet: N.p.o., with NG tube for meds (10) DVT prophylaxis Status: Acute Plan: Coumadin 5 mg daily, Lovenox 40 subcu daily - Assessment and Plan 68-year-old female currently undergoing chemotherapy for metastatic breast cancer , and severe sepsis with excessive tachycardia, vomiting and diarrhea, and pneumonia, C. difficile positive with pyelonephritis on CT. Discharge Planning: Discharge pending clinical improvement, poor prognosis
[2018-05-13] MEDS: Potassium Chlor 40 mEq Premix 40 MEQ/100 ML PIGGYBACK IV.SIG PRN ×2 (10:28→15:55)
--- NOTE | 2018-05-13 11:49 | P.PNONC ---
Subjective Interval history: T-max 100.8F. The patient remains in ICU. Her eyes are closed upon approach, however she awakens to verbal stimuli. She is able to verbalize that she was at a halfway and had been having diarrhea. She is questioning how she was previously negative for C. difficile and now she has C. difficile. At times her speech is incomprehensible, possibly secondary to extremely dry mouth or without dentures, she will repeat herself when asked to. She states that she does not understand how she got to this point. Objective Vital Signs/Intake & Output: Vital Signs 05/12/18 12:00 05/12/18 16:00 05/12/18 17:25 Temperature 98.8 F Pulse Rate 109 H 96 H 106 H Respiratory Rate 24 18 Blood Pressure 93/65 L Pulse Oximetry 97 05/12/18 20:00 05/12/18 21:42 05/13/18 00:00 Temperature 100.8 F H 100.2 F H Pulse Rate 109 H 118 H 119 H Respiratory Rate 21 16 28 H Blood Pressure 117/56 L 103/55 L Pulse Oximetry 98 96 96 05/13/18 03:57 05/13/18 04:00 05/13/18 07:00 Temperature 98.5 F Pulse Rate 117 H 119 H 110 H Respiratory Rate 20 26 H 20 Blood Pressure 133/62 Pulse Oximetry 97 05/13/18 08:00 Temperature 98.6 F Pulse Rate 125 H Respiratory Rate 22 Blood Pressure 135/59 L Pulse Oximetry 95 Intake & Output 05/12/18 05/13/18 05/13/18 18:59 06:59 18:59 Intake Total 4200 / 4200 2200 / 2200 0 / 0 Output Total 0 / 0 1000 / 1000 1000 / 1000 Balance 4200 / 4200 1200 / 1200 -1000 / -1000 Weight 110.5 kg Intake: IV 4200 / 4200 2200 / 2200 NS Inj 1,000 ML @ 155 mls/hr IV 1000 / 1000 .CONT .Q6H28M WENDI Rx#:[id number] Sodium Bicarbonate 8.4% Inj 150 2000 / 2000 MEQ In Sterile Water for Inj 850 ML @ 150 mls/hr IV.CONT . Q6H40M WENDI Rx#:[id number] Zosyn 4.5 GM Premix 4.5 gm In 200 / 200 200 / 200 100 ml @ 200 mls/hr IV.SIG Q6H WENDI Rx#:[id number] NS Inj 1,000 ML @ Wide Open IV. 3000 / 3000 SIG BOLUS ONE Rx#:[id number] Oral 0 / 0 0 / 0 0 / 0 Output: Urine 0 / 0 0 / 0 Stool 600 / 600 600 / 600 Urine Amount (Catheter) 400 / 400 400 / 400 Indwelling Urethral Catheter 400 / 400 400 / 400 Other: # Incontinent Voids 2 2 Date of Last Bowel Movement 05/12/18 05/13/18 05/13/18 # Incontinent Bowel Movements 2 2 Result Diagrams: 05/13/18 08:33 05/13/18 14:20 Laboratory Results: Laboratory Results - last 24 hr 05/12/18 05/12/18 05/12/18 12:54 14:30 14:35 WBC RBC Hgb Hct MCV MCH MCHC RDW Plt Count MPV Prelim Diff (Auto) Neut % (Auto) Lymph % (Auto) [place] % (Auto) Eos % (Auto) Baso % (Auto) Neut # (Auto) Lymph # (Auto) [place] # (Auto) Eos # (Auto) Baso # (Auto) WBC Differential Seg Neuts % (Manual) Band Neuts % (Manual) Lymphocytes % (Manual) Monocytes % (Manual) Metamyelocytes % (Man) Abs Neuts (Manual) Differential Comment Toxic Granulation Toxic Vacuolation Platelet Estimate Platelet Morphology Ovalocytes Acanthocytes (Spur) PT INR APTT Puncture Site Right brachial Patient Temperature 98.6 O2 Saturation 87 L* ABG pH 7.44 H ABG pCO2 15 L* ABG pO2 56 L* ABG HCO3 10 L* ABG O2 Content 14.5 ABG Base Excess -13.6 L ABG Methemoglobin 1.1 Seth Test Present Hemoglobin 11.9 L Carboxyhemoglobin 0.7 O2 Delivery Device Nasal cannula Liter Flow 2.00 Inspired O2 28 Critical Value Yes Sodium 145 Potassium 3.7 Chloride 118 H D Carbon Dioxide 13.3 L Anion Gap 14 BUN 29 H Creatinine 2.12 H Estimated GFR 23 L POC Glucose 117 H Random Glucose 128 H Lactic Acid Calcium 6.8 L* D Prot Corrected Calcium 7.6 L Magnesium Total Bilirubin 1.4 H AST 26 ALT 20 Alkaline Phosphatase 95 Total Creatine Kinase 52 Troponin I 0.06 H Total Protein 5.5 L D Albumin 1.8 L D Lipase 20 L 05/12/18 05/12/18 05/12/18 15:32 15:32 15:32 WBC 3.9 L RBC 3.91 L Hgb 11.7 D Hct 35.5 MCV 90.8 MCH 30.1 MCHC 33.1 RDW 23.2 H Plt Count 138 L D MPV 9.6 Prelim Diff (Auto) Slide review pending Neut % (Auto) 67.8 Lymph % (Auto) 25.7 [place] % (Auto) 5.8 Eos % (Auto) 0.2 Baso % (Auto) 0.5 Neut # (Auto) 2.6 Lymph # (Auto) 1.0 [place] # (Auto) 0.2 Eos # (Auto) 0.0 Baso # (Auto) 0.0 WBC Differential Manual diff final Seg Neuts % (Manual) 64 Band Neuts % (Manual) 13 H Lymphocytes % (Manual) 18 Monocytes % (Manual) 4 Metamyelocytes % (Man) 1 Abs Neuts (Manual) 3.0 Differential Comment . Toxic Granulation Toxic Vacuolation Platelet Estimate Platelet Morphology Ovalocytes Acanthocytes (Spur) PT 13.3 H INR 1.3 APTT 33.5 H Puncture Site Patient Temperature O2 Saturation ABG pH ABG pCO2 ABG pO2 ABG HCO3 ABG O2 Content ABG Base Excess ABG Methemoglobin Seth Test Hemoglobin Carboxyhemoglobin O2 Delivery Device Liter Flow Inspired O2 Critical Value Sodium Potassium Chloride Carbon Dioxide Anion Gap BUN Creatinine Estimated GFR POC Glucose Random Glucose Lactic Acid 4.2 H* Calcium Prot Corrected Calcium Magnesium Total Bilirubin AST ALT Alkaline Phosphatase Total Creatine Kinase Troponin I Total Protein Albumin Lipase 05/12/18 05/12/18 05/13/18 17:50 20:55 08:33 WBC 3.2 L RBC 4.01 Hgb 11.8 Hct 35.5 MCV 88.6 MCH 29.5 MCHC 33.2 RDW 23.0 H Plt Count 164 MPV 10.1 Prelim Diff (Auto) Manual diff required Neut % (Auto) Lymph % (Auto) [place] % (Auto) Eos % (Auto) Baso % (Auto) Neut # (Auto) Lymph # (Auto) [place] # (Auto) Eos # (Auto) Baso # (Auto) WBC Differential Manual diff final Seg Neuts % (Manual) 53 Band Neuts % (Manual) 3 Lymphocytes % (Manual) 35 Monocytes % (Manual) 8 Metamyelocytes % (Man) 1 Abs Neuts (Manual) 1.8 Differential Comment . Toxic Granulation 1+ H Toxic Vacuolation Present H Platelet Estimate Normal Platelet Morphology Normal Ovalocytes 1+ H Acanthocytes (Spur) Occ H PT INR APTT Puncture Site Right radial Patient Temperature 98.6 O2 Saturation 97 ABG pH 7.50 H ABG pCO2 20 L* ABG pO2 122 H ABG HCO3 16 L* ABG O2 Content 17.1 ABG Base Excess -7.1 L ABG Methemoglobin 1.1 Seth Test Present Hemoglobin 12.5 Carboxyhemoglobin 0.7 O2 Delivery Device Nasal cannula Liter Flow 4.00 Inspired O2 36 Critical Value Yes Sodium Potassium Chloride Carbon Dioxide Anion Gap BUN Creatinine Estimated GFR POC Glucose Random Glucose Lactic Acid 4.4 H* Calcium Prot Corrected Calcium Magnesium Total Bilirubin AST ALT Alkaline Phosphatase Total Creatine Kinase Troponin I Total Protein Albumin Lipase 05/13/18 05/13/18 08:33 08:33 WBC RBC Hgb Hct MCV MCH MCHC RDW Plt Count MPV Prelim Diff (Auto) Neut % (Auto) Lymph % (Auto) [place] % (Auto) Eos % (Auto) Baso % (Auto) Neut # (Auto) Lymph # (Auto) [place] # (Auto) Eos # (Auto) Baso # (Auto) WBC Differential Seg Neuts % (Manual) Band Neuts % (Manual) Lymphocytes % (Manual) Monocytes % (Manual) Metamyelocytes % (Man) Abs Neuts (Manual) Differential Comment Toxic Granulation Toxic Vacuolation Platelet Estimate Platelet Morphology Ovalocytes Acanthocytes (Spur) PT INR APTT Puncture Site Patient Temperature O2 Saturation ABG pH ABG pCO2 ABG pO2 ABG HCO3 ABG O2 Content ABG Base Excess ABG Methemoglobin Seth Test Hemoglobin Carboxyhemoglobin O2 Delivery Device Liter Flow Inspired O2 Critical Value Sodium 146 H Potassium 2.5 L* D Chloride 107 D Carbon Dioxide 26.8 D Anion Gap 12 BUN 31 H Creatinine 1.81 H Estimated GFR 28 L POC Glucose Random Glucose 160 H Lactic Acid 3.9 H Calcium 6.1 L* Prot Corrected Calcium 6.7 L* D Magnesium 1.9 Total Bilirubin 1.2 H AST 51 H ALT 36 Alkaline Phosphatase 90 Total Creatine Kinase Troponin I Total Protein 5.7 L Albumin 1.9 L Lipase Culture Results: Microbiology 05/12/18 15:32 Aerobic Blood Culture - Preliminary Blood - Line No growth in 1 day Anaerobic Blood Culture - Preliminary No growth in 1 day 05/12/18 15:25 Aerobic Blood Culture - Preliminary Blood - Line No growth in 1 day Anaerobic Blood Culture - Preliminary No growth in 1 day 05/11/18 22:20 Aerobic Blood Culture - Preliminary Blood - Peripheral No growth in 2 days Anaerobic Blood Culture - Final QNS - See aerobic report. 05/11/18 19:45 Aerobic Blood Culture - Preliminary Blood - Peripheral No growth in 2 days Anaerobic Blood Culture - Final QNS - See aerobic report. 05/12/18 16:00 Streptococcus pneumoniae Antigen (M - Final Urine - Catheterized Urine Presumptive negative for streptococcus pneumoniae antigen, suggesting no current or recent infection. Infection due to Streptococcus pneumoniae cannot be ruled out since the antigen present in the sample may be below the detection limit of the test. 05/12/18 16:00 Legionella Antigen - Final Urine - Catheterized Urine Presumptive negative for Legionella pneumophila serogroup 1 antigen in urine, suggesting no recent or recurrent infection. Infection due to Legionella cannot be ruled out since other serogroups and species may cause disease, antigen may not be present in urine in early infection, and the level of antigen present in the urine may be below the detection limit of the test. Imaging Studies: Impressions Chest CT 05/12/18 00:00 CONCLUSION: 1. Confluent opacity in the right upper lobe that is new when compared to the prior study 2016. Morphology would favor scarring. There is mild associated bronchiectasis. More acute consolidation is also in the differential diagnosis. Neoplasm would be less likely but is in the differential diagnosis. Recommend a follow-up noncontrast chest CT confirm stability or resolution in 3 months. 2. Minimal nonspecific groundglass opacity in the left upper lobe. The prominent bilateral groundglass opacity seen on prior study of 2017 is not seen on today's study. Head CT 05/12/18 00:00 CONCLUSION: 1. No acute intracranial abnormalities. Stable chronic white matter ischemic changes. . Venous Doppler Study 05/12/18 00:00 CONCLUSION: No evidence of lower extremity DVT on the right or left. Chest X-Ray 05/12/18 13:35 CONCLUSION: Right upper lobe airspace disease similar to May 3. Abdomen/Pelvis CT 05/12/18 15:00 CONCLUSION: 1. Questionable mild mural thickening of the colon that could indicate a mild colitis, especially transverse colon. 2. Heterogeneous renal parenchymal enhancement not as optimally evaluated as on prior study. Cannot exclude pyelonephritis. 3. Bhagat catheter in decompressed bladder. 4. Hiatal hernia. 5. Moderate coronary calcifications. Abdomen X-Ray 05/12/18 21:10 CONCLUSION: Nasogastric tube in the stomach with the tip at the gastroesophageal junction. Chest X-Ray 05/13/18 06:00 CONCLUSION: Persistent right upper lung opacity/infiltrate. No new findings. Medications: Active Medications Generic Name Dose Route Start Last Admin Trade Name Freq PRN Reason Stop Dose Admin Acetaminophen 650 mg 05/11/18 15:43 05/12/18 21:49 Tylenol PO 650 mg Q4H PRN Administration Temp > 100.4 Albuterol 1 ampul 05/12/18 16:00 05/13/18 08:10 Duoneb Neb (Wendi) NEB 1 ampul Q6HR NEB WENDI Administration Diltiazem HCl 30 mg 05/12/18 14:00 05/12/18 17:56 Cardizem PO Not Given Q8HR WENDI Enoxaparin Sodium 40 mg 05/12/18 15:00 05/12/18 18:47 Lovenox Inj SQ 40 mg Q24H WENDI Administration Fidaxomicin 200 mg 05/12/18 14:30 05/13/18 10:07 Dificid PO 200 mg BID WENDI Administration Piperacillin/Tazobactam/Dextrose 4.5 gm in 100 mls @ 200 mls/hr 05/11/18 22: 00 05/13/18 10:08 Zosyn 4.5 Gm Premix IV.SIG 200 mls/hr Q6H WENDI Administration Potassium Chloride 40 meq in 100 mls @ 25 mls/hr 05/13/18 09:33 05/13/18 10: 28 Kcl 40 Meq Premix Inj IV.SIG 25 mls/hr Q2H PRN Administration For Potassium 2.8 - 3.2 mEq/L Potassium Chloride/Sodium Chloride 1,000 mls @ 100 mls/hr 05/13/18 09:45 02/23 10:08 Ns + Kcl 40 Meq Inj IV.CONT 100 mls/hr .Q10H WENDI Administration Lorazepam 1 mg 05/11/18 21:00 05/12/18 13:51 Ativan PO Not Given BID WENDI Metoprolol Tartrate 25 mg 05/12/18 09:00 05/12/18 09:23 Lopressor PO Not Given DAILY WENDI Ondansetron HCl 8 mg 05/11/18 14:08 05/12/18 09:24 Zofran Inj IV.PUSH 8 mg Q8H PRN Administration VOMITING Pantoprazole Sodium 40 mg 05/11/18 18:00 05/12/18 18:44 Protonix Inj IV.PUSH 40 mg Q24H WENDI Administration Pramipexole Dihydrochloride 1 mg 05/11/18 21:00 05/12/18 21:50 Mirapex PO 1 mg HS WENDI Administration Sodium Chloride 2 ml 05/11/18 09:37 05/11/18 14:27 Ns Flush IV.FLUSH 2 ml PRN PRN Administration FLUSH AFTER USING IV ACCESS Vancomycin HCl 500 mg 05/12/18 18:00 05/13/18 10:07 Vancomycin Po PO 500 mg QID WENDI Administration Warfarin Sodium 5 mg 05/12/18 16:00 05/13/18 10:11 Coumadin PO Not Given DAILY@1600 WENDI Objective Remarks: GENERAL: Chronically ill-appearing elderly female patient, lying in bed. Awakens to verbal stimuli. SKIN: Warm and dry. Port access to right chest wall, dressing dry/intact. HEAD: Normocephalic. NG tube to left nare. EYES: No scleral icterus. No injection or drainage. Mouth: Dry mucous membranes. NECK: Supple, trachea midline. No JVD or lymphadenopathy. CARDIOVASCULAR: Tachycardic, heart rate 117. RESPIRATORY: Anterior breath sounds clear, equal bilaterally. No accessory muscle use. O2 via NC. GASTROINTESTINAL: Abdomen soft, non-tender, nondistended. + Urinary catheter, clear/yellow urine draining.+ Rectal tube, dark/black liquid. EXTREMITIES: BLE mottling, feet cool to touch.+ 4/5 DP pulses. MUSCULOSKELETAL: Adequate muscle tone. NEUROLOGICAL: Awakens to voice. Oriented to person and place. Speech intermittently incomprehensible. PSYCHIATRIC: Appropriate mood and affect; unable to evaluate insight and judgment at this time. Assessment/Plan - Plan This is an unfortunate 68-year-old female patient, with a history of metastatic breast cancer-currently receiving weekly Taxol treatment, was admitted to the hospital from the nursing rehab facility after she was found to have excessive nausea, vomiting and severe diarrhea. The patient had been started on Mucinex and Levaquin the day prior to admission for cough with greenish phlegm. The patient's stools were positive for C-diff and she was started on oral Flagyl. She was also noted to have RUL pneumonia and pyelonephritis, which were noted on the CT of the chest, abdomen and pelvis. On 05/12/18, the patient was noted to be lethargic and confused. She was found severe sepsis and was transferred to the ICU for management under the intensive care physician. Plan: 1. Severe sepsis with septic shock and lactic acidosis, metabolic acidosis and peripheral cyanosis. Management per intensive care team. 2. Metastatic breast cancer. Patient has been receiving weekly Taxol treatments. Management per primary oncologist. 3. Continue to monitor for DIC, as patient is at high risk for developing. 4. Continue supportive care. - Attending Statement The exam, history, and the medical decision-making described in the above note were completed with the assistance of the mid-level provider. I reviewed and agree with the findings presented. I attest that I had a [id number] encounter with the patient on the same day, and personally performed and documented my assessment and findings in the medical record. Patient is more awake and alert. Her speech is still not clear and that could be due to not using the dentures. Still has significant diarrhea with green color due to C. difficile colitis. GI is on the case. She is on vancomycin Zosyn for pneumonia and pyelonephritis. Patient has improved since yesterday and her peripheral cyanosis is resolving as well. Dr. Zuñiga will see the patient in the morning.
--- NOTE | 2018-05-13 14:02 | P.PNGI ---
Physical Exam Vital signs: Vital Signs 05/12/18 16:00 05/12/18 17:25 05/12/18 20:00 Temperature 100.8 F H Pulse Rate 96 H 106 H 109 H Respiratory Rate 18 21 Blood Pressure 117/56 L Pulse Oximetry 98 05/12/18 21:42 05/13/18 00:00 05/13/18 03:57 Temperature 100.2 F H Pulse Rate 118 H 119 H 117 H Respiratory Rate 16 28 H 20 Blood Pressure 103/55 L Pulse Oximetry 96 96 05/13/18 04:00 05/13/18 07:00 05/13/18 08:00 Temperature 98.5 F 98.6 F Pulse Rate 119 H 110 H 125 H Respiratory Rate 26 H 20 22 Blood Pressure 133/62 135/59 L Pulse Oximetry 97 95 Intake & Output 05/12/18 05/13/18 05/13/18 18:59 06:59 18:59 Intake Total 4200 / 4200 2200 / 2200 120 / 120 Output Total 0 / 0 1000 / 1000 1000 / 1000 Balance 4200 / 4200 1200 / 1200 -880 / -880 Weight 110.5 kg Intake: IV 4200 / 4200 2200 / 2200 120 / 120 NS Inj 1,000 ML @ 155 mls/hr IV 1000 / 1000 .CONT .Q6H28M [facility] Rx#:[id number] Sodium Bicarbonate 8.4% Inj 150 2000 / 2000 MEQ In Sterile Water for Inj 850 ML @ 150 mls/hr IV.CONT . Q6H40M [facility] Rx#:[id number] Calcium Chloride Inj 2 GM In NS 120 / 120 Inj 100 ML @ 120 mls/hr IV.SIG ONCE ONE Rx#:[id number] Zosyn 4.5 GM Premix 4.5 gm In 200 / 200 200 / 200 100 ml @ 200 mls/hr IV.SIG Q6H [facility] Rx#:[id number] NS Inj 1,000 ML @ Wide Open IV. 3000 / 3000 SIG BOLUS ONE Rx#:[id number] Oral 0 / 0 0 / 0 0 / 0 Output: Urine 0 / 0 0 / 0 Stool 600 / 600 600 / 600 Urine Amount (Catheter) 400 / 400 400 / 400 Indwelling Urethral Catheter 400 / 400 400 / 400 Other: # Incontinent Voids 2 2 Date of Last Bowel Movement 05/12/18 05/13/18 05/13/18 # Incontinent Bowel Movements 2 2 - Constitutional no acute distress - Routine HEENT Exam Head: Present: normocephalic Eye: Present: EOMI ENT: Present: mucous membranes moist - Routine Cardiovascular Exam Present: RRR - Routine Abdominal Exam Present: soft, normoactive bowel sounds - Urinary Catheter Management Indwelling Urethral Catheter Cath placed during this visit: yes Reason for continuing: Hourly intake/output Insertion date: 05/12/18 Insertion time: 15:00 Results - Labs CBC & Chem 7: 05/13/18 08:33 05/13/18 08:33 Laboratory Results - last 24 hr 05/12/18 05/12/18 05/12/18 14:30 14:35 15:32 WBC 3.9 L RBC 3.91 L Hgb 11.7 D Hct 35.5 MCV 90.8 MCH 30.1 MCHC 33.1 RDW 23.2 H Plt Count 138 L D MPV 9.6 Prelim Diff (Auto) Slide review pending Neut % (Auto) 67.8 Lymph % (Auto) 25.7 [place] % (Auto) 5.8 Eos % (Auto) 0.2 Baso % (Auto) 0.5 Neut # (Auto) 2.6 Lymph # (Auto) 1.0 [place] # (Auto) 0.2 Eos # (Auto) 0.0 Baso # (Auto) 0.0 WBC Differential Manual diff final Seg Neuts % (Manual) 64 Band Neuts % (Manual) 13 H Lymphocytes % (Manual) 18 Monocytes % (Manual) 4 Metamyelocytes % (Man) 1 Abs Neuts (Manual) 3.0 Differential Comment . Toxic Granulation Toxic Vacuolation Platelet Estimate Platelet Morphology Ovalocytes Acanthocytes (Spur) PT INR APTT Puncture Site Right brachial Patient Temperature 98.6 O2 Saturation 87 L* ABG pH 7.44 H ABG pCO2 15 L* ABG pO2 56 L* ABG HCO3 10 L* ABG O2 Content 14.5 ABG Base Excess -13.6 L ABG Methemoglobin 1.1 Seth Test Present Hemoglobin 11.9 L Carboxyhemoglobin 0.7 O2 Delivery Device Nasal cannula Liter Flow 2.00 Inspired O2 28 Critical Value Yes Sodium 145 Potassium 3.7 Chloride 118 H D Carbon Dioxide 13.3 L Anion Gap 14 BUN 29 H Creatinine 2.12 H Estimated GFR 23 L Random Glucose 128 H Lactic Acid Calcium 6.8 L* D Prot Corrected Calcium 7.6 L Magnesium Total Bilirubin 1.4 H AST 26 ALT 20 Alkaline Phosphatase 95 Total Creatine Kinase 52 Troponin I 0.06 H Total Protein 5.5 L D Albumin 1.8 L D Lipase 20 L 05/12/18 05/12/18 05/12/18 15:32 15:32 17:50 WBC RBC Hgb Hct MCV MCH MCHC RDW Plt Count MPV Prelim Diff (Auto) Neut % (Auto) Lymph % (Auto) [place] % (Auto) Eos % (Auto) Baso % (Auto) Neut # (Auto) Lymph # (Auto) [place] # (Auto) Eos # (Auto) Baso # (Auto) WBC Differential Seg Neuts % (Manual) Band Neuts % (Manual) Lymphocytes % (Manual) Monocytes % (Manual) Metamyelocytes % (Man) Abs Neuts (Manual) Differential Comment Toxic Granulation Toxic Vacuolation Platelet Estimate Platelet Morphology Ovalocytes Acanthocytes (Spur) PT 13.3 H INR 1.3 APTT 33.5 H Puncture Site Right radial Patient Temperature 98.6 O2 Saturation 97 ABG pH 7.50 H ABG pCO2 20 L* ABG pO2 122 H ABG HCO3 16 L* ABG O2 Content 17.1 ABG Base Excess -7.1 L ABG Methemoglobin 1.1 Seth Test Present Hemoglobin 12.5 Carboxyhemoglobin 0.7 O2 Delivery Device Nasal cannula Liter Flow 4.00 Inspired O2 36 Critical Value Yes Sodium Potassium Chloride Carbon Dioxide Anion Gap BUN Creatinine Estimated GFR Random Glucose Lactic Acid 4.2 H* Calcium Prot Corrected Calcium Magnesium Total Bilirubin AST ALT Alkaline Phosphatase Total Creatine Kinase Troponin I Total Protein Albumin Lipase 05/12/18 05/13/18 05/13/18 20:55 08:33 08:33 WBC 3.2 L RBC 4.01 Hgb 11.8 Hct 35.5 MCV 88.6 MCH 29.5 MCHC 33.2 RDW 23.0 H Plt Count 164 MPV 10.1 Prelim Diff (Auto) Manual diff required Neut % (Auto) Lymph % (Auto) [place] % (Auto) Eos % (Auto) Baso % (Auto) Neut # (Auto) Lymph # (Auto) [place] # (Auto) Eos # (Auto) Baso # (Auto) WBC Differential Manual diff final Seg Neuts % (Manual) 53 Band Neuts % (Manual) 3 Lymphocytes % (Manual) 35 Monocytes % (Manual) 8 Metamyelocytes % (Man) 1 Abs Neuts (Manual) 1.8 Differential Comment . Toxic Granulation 1+ H Toxic Vacuolation Present H Platelet Estimate Normal Platelet Morphology Normal Ovalocytes 1+ H Acanthocytes (Spur) Occ H PT INR APTT Puncture Site Patient Temperature O2 Saturation ABG pH ABG pCO2 ABG pO2 ABG HCO3 ABG O2 Content ABG Base Excess ABG Methemoglobin Seth Test Hemoglobin Carboxyhemoglobin O2 Delivery Device Liter Flow Inspired O2 Critical Value Sodium 146 H Potassium 2.5 L* D Chloride 107 D Carbon Dioxide 26.8 D Anion Gap 12 BUN 31 H Creatinine 1.81 H Estimated GFR 28 L Random Glucose 160 H Lactic Acid 4.4 H* Calcium 6.1 L* Prot Corrected Calcium 6.7 L* D Magnesium 1.9 Total Bilirubin 1.2 H AST 51 H ALT 36 Alkaline Phosphatase 90 Total Creatine Kinase Troponin I Total Protein 5.7 L Albumin 1.9 L Lipase 05/13/18 08:33 WBC RBC Hgb Hct MCV MCH MCHC RDW Plt Count MPV Prelim Diff (Auto) Neut % (Auto) Lymph % (Auto) [place] % (Auto) Eos % (Auto) Baso % (Auto) Neut # (Auto) Lymph # (Auto) [place] # (Auto) Eos # (Auto) Baso # (Auto) WBC Differential Seg Neuts % (Manual) Band Neuts % (Manual) Lymphocytes % (Manual) Monocytes % (Manual) Metamyelocytes % (Man) Abs Neuts (Manual) Differential Comment Toxic Granulation Toxic Vacuolation Platelet Estimate Platelet Morphology Ovalocytes Acanthocytes (Spur) PT INR APTT Puncture Site Patient Temperature O2 Saturation ABG pH ABG pCO2 ABG pO2 ABG HCO3 ABG O2 Content ABG Base Excess ABG Methemoglobin Seth Test Hemoglobin Carboxyhemoglobin O2 Delivery Device Liter Flow Inspired O2 Critical Value Sodium Potassium Chloride Carbon Dioxide Anion Gap BUN Creatinine Estimated GFR Random Glucose Lactic Acid 3.9 H Calcium Prot Corrected Calcium Magnesium Total Bilirubin AST ALT Alkaline Phosphatase Total Creatine Kinase Troponin I Total Protein Albumin Lipase Microbiology 05/12/18 15:32 Blood - Line Aerobic Blood Culture - Preliminary No growth in 1 day 05/12/18 15:32 Blood - Line Anaerobic Blood Culture - Preliminary No growth in 1 day 05/12/18 15:25 Blood - Line Aerobic Blood Culture - Preliminary No growth in 1 day 05/12/18 15:25 Blood - Line Anaerobic Blood Culture - Preliminary No growth in 1 day 05/11/18 22:20 Blood - Peripheral Aerobic Blood Culture - Preliminary No growth in 2 days 05/11/18 22:20 Blood - Peripheral Anaerobic Blood Culture - Final QNS - See aerobic report. 05/11/18 19:45 Blood - Peripheral Aerobic Blood Culture - Preliminary No growth in 2 days 05/11/18 19:45 Blood - Peripheral Anaerobic Blood Culture - Final QNS - See aerobic report. 05/12/18 16:00 Urine - Catheterized Urine Streptococcus pneumoniae Antigen ( M - Final Presumptive negative for streptococcus pneumoniae antigen, suggesting no current or recent infection. Infection due to Streptococcus pneumoniae cannot be ruled out since the antigen present in the sample may be below the detection limit of the test. 05/12/18 16:00 Urine - Catheterized Urine Legionella Antigen - Final Presumptive negative for Legionella pneumophila serogroup 1 antigen in urine, suggesting no recent or recurrent infection. Infection due to Legionella cannot be ruled out since other serogroups and species may cause disease, antigen may not be present in urine in early infection, and the level of antigen present in the urine may be below the detection limit of the test. - Imaging Impressions Chest CT 05/12/18 00:00 CONCLUSION: 1. Confluent opacity in the right upper lobe that is new when compared to the prior study 2016. Morphology would favor scarring. There is mild associated bronchiectasis. More acute consolidation is also in the differential diagnosis. Neoplasm would be less likely but is in the differential diagnosis. Recommend a follow-up noncontrast chest CT confirm stability or resolution in 3 months. 2. Minimal nonspecific groundglass opacity in the left upper lobe. The prominent bilateral groundglass opacity seen on prior study of 2017 is not seen on today's study. Head CT 05/12/18 00:00 CONCLUSION: 1. No acute intracranial abnormalities. Stable chronic white matter ischemic changes. . Venous Doppler Study 05/12/18 00:00 CONCLUSION: No evidence of lower extremity DVT on the right or left. Chest X-Ray 05/12/18 13:35 CONCLUSION: Right upper lobe airspace disease similar to May 3. Abdomen/Pelvis CT 05/12/18 15:00 CONCLUSION: 1. Questionable mild mural thickening of the colon that could indicate a mild colitis, especially transverse colon. 2. Heterogeneous renal parenchymal enhancement not as optimally evaluated as on prior study. Cannot exclude pyelonephritis. 3. Bhagat catheter in decompressed bladder. 4. Hiatal hernia. 5. Moderate coronary calcifications. Abdomen X-Ray 05/12/18 21:10 CONCLUSION: Nasogastric tube in the stomach with the tip at the gastroesophageal junction. Chest X-Ray 05/13/18 06:00 CONCLUSION: Persistent right upper lung opacity/infiltrate. No new findings. Assessment and Plan - Plan Seen and examined, doing well. Add cholestyramine [address] reviewed. RONDA NG, liquid diet.
[2018-05-13 15:22] LABS: Alanine Aminotransferase 36 U/L (10-53); Albumin 1.9 g/dL (3.4-5.0); Alkaline Phosphatase 89 U/L (45-117); Anion Gap 10 meq/L (5-15); Aspartate Aminotransferase 38 U/L (15-37); Blood Urea Nitrogen 29 mg/dL (7-18); Calcium 7.5 mg/dL (8.5-10.1); Carbon Dioxide 27.4 meq/L (21.0-32.0); Chloride 113 meq/L (98-107); Glomerular Filtration Rate 34 mL/min (>89); Glucose,Random 116 mg/dL (74-106); Sodium 150 meq/L (136-145); Total Protein 5.5 g/dL (6.4-8.2)
--- NOTE | 2018-05-13 15:30 | P.DIET ---
Nutritional Evaluation Type of nutrition evaluation: initial Nutrition screening: Weight Loss > 10 lbs Subjective Subjective Comments: Poor Appetite. Pt admitted w/nausea, vomiting, diarrhea Objective - Diagnosis Persistent Tachycardia, N/V/D, general weakness - Objective [place] body weight: 65.9 kg % IBW: 171 Body Weight Used for Calculations: IBW Energy Needs - Lower Range (kCal/kg): 28 Energy Needs - Upper Range (kCal/kg): 33 Lower Limit kCal/kg (kCals): 1,845 Upper Limit kCal/kg (kCals): 2,175 Lower Limit Protein Factor (Grams per Kg): 1.5 Upper Limit Protein Factor (Grams per Kg): 1.8 Lower Protein Needs (Protein): 99 Upper Protein Needs (Protein): 119 Dietitian Reviewed in Medical Record: Current diet, Curent medications, Intake & Output, Labs, Medical history Diet Order: Clear Liquid Objective Comments: PMH Includes: Invasive lobular carcinoma of Breast, stage 4; metastasis from breast cancer-currently undergoing chemotherapy; GERD, Psoriasis, Psoriatic Arthritis, Restrictive Lung Disease Labs Include: K 2.5, Creatinine 1.81, estGFR 28, Glucose 160 positive C-Diff Assessment Assessment: Pt is at high nutrition risk r/t recent unintentional wt loss, diagnosis and clinical status. Diet advanced from NPO to Clear Liquids today per GI. Monitor Clinical Course. Dietitian Following. Recommendations: 1. Monitor Clinical Course 2. Dietitian Following Dietitian to Monitor: Lab values, Electrolytes, Renal labs, Intake & Output, Diet tolerance, Weight change, PO Intake, Diet advancement, Medical course Comments: GI Recs
[2018-05-13] MEDS: Enoxaparin Inj 40 MG/0.4 ML Syringe SQ SCH (15:47)
[2018-05-13] MEDS: Pantoprazole Inj 40 MG Vial IV.PUSH SCH (18:21)
[2018-05-14] MEDS ORDERED: Pharmacy Ordered Lab Info OTHER ONE (01:45)
--- NOTE | 2018-05-14 05:33 | XR ---
EXAM DATE: 05/14/2018 5:23 AM EDT AGE/SEX: 68 years / Female INDICATIONS: Shortness of breath. Possible respiratory disease. CLINICAL DATA: This is the patient's subsequent encounter. Patient reports that signs and symptoms h ave been present for 4 - 6 days and indicates a pain score of Nonresponsive. MEDICAL/SURGICAL HISTORY: . Carcinoma, breast, Metastatic disease. . Mastectomy, left, Total knee replacement, left, Total knee replacement, right, ORIF left femur COMPARISON: C, CHEST 1V SINGLE AP, 05/13/2018. [facility], MRI THORACIC SPINE W & W/O CONTRAST, 018. [facility], PET/CT TUMOR, 01/22/2018. . FINDINGS: Right-sided portacatheter, enteric tube, cardiomegaly noted. No consolidation or effusion. There is p ersistent opacity in the right upper lobe, and enlarged left main pulmonary artery. There is a vague nodular density in the left midlung zone laterally measuring 2.5 cm. CONCLUSION: Stable masslike opacity right upper lobe measuring 2.5 cm as well as a vague nodular density in the l eft mid lung identified. Electronically signed by: Schuyler Dahl MD 05/14/2018 5:32 AM EDT
[2018-05-14 06:12] LABS: Hematocrit 31.4 % (35.0-46.0); Hemoglobin 10.5 gm/dL (11.6-15.3); Mean Corpuscular HGB Conc 33.3 % (32.0-36.0); Mean Platelet Volume 10.1 fL (7.0-11.0); Platelet Count 128 th/mm3 (150-450); Red Blood Count 3.49 mil/mm3 (4.00-5.30); Red Cell Distribution Width 22.4 % (11.6-17.2); White Blood Count 2.8 th/mm3 (4.0-11.0)
[2018-05-14] MEDS: Piperacil/Tazo 4.5 GM Premix 4.5 GM/100 ML BAG IV.SIG SCH ×4 (06:31→22:12)
[2018-05-14 06:42] LABS: Albumin 1.8 g/dL (3.4-5.0); Calcium 7.1 mg/dL (8.5-10.1); Carbon Dioxide 25.5 meq/L (21.0-32.0); Magnesium 2.1 mg/dL (1.5-2.5); Potassium 3.3 meq/L (3.5-5.1); Total Protein 5.4 g/dL (6.4-8.2)
[2018-05-14] MEDS: Potassium Chlor 40 mEq Premix 40 MEQ/100 ML PIGGYBACK IV.SIG PRN ×3 (06:57→23:15)
--- NOTE | 2018-05-14 08:08 | P.PNCC ---
Subjective Subjective Remarks/Hospital Course: Patient is a 68-year-old female with history of metastatic breast cancer currently undergoing chemotherapy by Dr. Zuñiga, last dose of chemotherapy on Monday, history of psoriatic arthritis who presented to the presentation was emergency department with nausea, vomiting and diarrhea of about 24 hour duration prior to presentation. At the [facility] apparently she was having productive cough and the physician there started on Levaquin. WBC count on 3.3 with 18% bands. Her creatinine was slightly elevated at 1.2. Stool studies revealed she was positive for C. difficile and also positive for Epid 027, for which she was receiving p.o. Flagyl. Patient also receiving broad-spectrum antibiotics with IV vancomycin and IV Zosyn for right upper lobe pneumonia on chest x-ray, and probable acute pyelonephritis. Today patient was found to be increasingly confused lethargic more tachycardic and hypotensive. Patient was given 1 L normal saline fluid bolus. With concern for worsening sepsis patient was moved to the ICU and critical care medicine was consulted. I immediately evaluated the patient she is tachycardic very lethargic but wakes up to stimulation. She has extensive skin mottling problem most likely from severe sepsis. Her CT abdomen pelvis yesterday was unremarkable other than pyelonephritis, abdominal exam shows only mild tenderness. However ABG shows a pH of 7.43, PCO2 15.3, PO2 56 and base excess of -14. CBC CMP lactic acid is pending at this time. I have discussed the case with Dr. Gonzalez from GI. Discontinue p.o. Flagyl, discontinue IV vancomycin. I will start her on Dificid and p.o. vancomycin. Continue aggressive fluid resuscitation, change maintenance fluid to bicarbonate infusion. Repeat CT of the abdomen pelvis due to severe acidosis. Her prognosis is guarded given her age, immunosuppressed state metastatic cancer and severe C. difficile. SUBJ 8: Remains critical but mentation is slightly improved. Remains tachycardic in 120s. Creatinine now 1.8. Lactic acid 3.9. Will give additional fluid bolus. Started on po Dificid and p.o. vancomycin yesterday via OG tube. There is no evidence of toxic megacolon at this time but wit the elevated creatinine patient has severe C. difficile colitis 05/14 Patient is lying in bed in NAD. Afebrile. Lactic acid trending down 3.2 yesterday. Renal function is improving with Cr: 0.95 this morning. Objective Vital Signs / I&O: Vital Signs 05/13/18 08:00 05/13/18 08:52 05/13/18 09:00 Temperature 98.6 F Pulse Rate 125 H 125 H 125 H Respiratory Rate 22 24 39 H Blood Pressure 135/59 L Pulse Oximetry 95 98 97 05/13/18 09:25 05/13/18 09:30 05/13/18 10:00 Temperature Pulse Rate 123 H 121 H 124 H Respiratory Rate 31 H 31 H 23 Blood Pressure 148/67 H 150/76 H Pulse Oximetry 98 98 99 05/13/18 10:01 05/13/18 10:30 05/13/18 10:34 Temperature Pulse Rate 125 H 127 H 123 H Respiratory Rate 31 H 29 H 22 Blood Pressure 132/64 138/102 H 142/62 H Pulse Oximetry 98 80 L 05/13/18 11:00 05/13/18 11:30 05/13/18 12:00 Temperature Pulse Rate 120 H 120 H 109 H Respiratory Rate 24 30 H 23 Blood Pressure 147/63 H 148/67 H 149/65 H Pulse Oximetry 80 L 05/13/18 12:30 05/13/18 13:00 05/13/18 13:30 Temperature Pulse Rate 120 H 121 H 118 H Respiratory Rate 18 17 22 Blood Pressure 156/68 H 148/64 H 136/58 L Pulse Oximetry 05/13/18 14:00 05/13/18 14:27 05/13/18 14:30 Temperature Pulse Rate 121 H 113 H 113 H Respiratory Rate 24 18 18 Blood Pressure 141/104 H 146/63 H Pulse Oximetry 05/13/18 15:00 05/13/18 15:30 05/13/18 16:00 Temperature 98.9 F Pulse Rate 115 H 116 H 117 H Respiratory Rate 20 17 21 Blood Pressure 133/66 139/64 138/65 Pulse Oximetry 05/13/18 16:30 05/13/18 20:00 05/13/18 20:20 Temperature 98.4 F Pulse Rate 115 H 116 H 116 H Respiratory Rate 18 22 18 Blood Pressure 145/65 H 140/67 Pulse Oximetry 100 96 05/14/18 00:00 05/14/18 03:56 05/14/18 04:00 Temperature 98.4 F 98.9 F Pulse Rate 116 H 111 H 111 H Respiratory Rate 22 16 24 Blood Pressure 156/80 H 115/54 L Pulse Oximetry 100 94 L Intake & Output 05/13/18 05/14/18 05/14/18 18:59 06:59 18:59 Intake Total 420 / 420 2374 / 2374 100 / 100 Output Total 1999 / 1999 1825 / 1825 Balance -1580 / -1580 549 / 549 100 / 100 Intake: IV 420 / 420 2013 100 / 100 NS + KCl 40 mEq Inj 1,000 ML @ 1814 / 1814 100 mls/hr IV.CONT .Q10H [facility] Rx #:[id number] Calcium Chloride Inj 2 GM In NS 120 / 120 Inj 100 ML @ 120 mls/hr IV.SIG ONCE ONE Rx#:[id number] Zosyn 4.5 GM Premix 4.5 gm In 200 / 200 100 / 100 100 / 100 100 ml @ 200 mls/hr IV.SIG Q6H [facility] Rx#:[id number] KCl 40 mEq Premix Inj 40 meq In 100 / 100 100 / 100 100 ml @ 25 mls/hr IV.SIG Q2H [facility] Rx#:[id number] Oral 0 / 0 240 / 240 Tube Irrigant 120 / 120 Output: Urine 0 / 0 1350 / 1350 Stool 1200 / 1200 475 / 475 Urine Amount (Catheter) 800 / 800 Indwelling Urethral Catheter 800 / 800 Other: # Incontinent Voids 2 Date of Last Bowel Movement 05/13/18 05/14/18 # Incontinent Bowel Movements 2 Result Diagrams: 05/14/18 06:00 05/14/18 06:00 Other Results: Laboratory Results - last 12 hr 05/13/18 05/14/18 05/14/18 21:40 06:00 06:00 WBC 2.8 L RBC 3.49 L Hgb 10.5 L Hct 31.4 L MCV 90.0 MCH 30.0 MCHC 33.3 RDW 22.4 H Plt Count 128 L MPV 10.1 Sodium 152 H Potassium 3.3 L Chloride 118 H Carbon Dioxide 25.5 Anion Gap 9 BUN 18 Creatinine 0.95 Estimated GFR 59 L POC Glucose 110 Random Glucose 110 H Calcium 7.1 L* Prot Corrected Calcium 8.0 L D Magnesium 2.1 Total Bilirubin 0.8 AST 32 ALT 36 Alkaline Phosphatase 103 Total Protein 5.4 L Albumin 1.8 L Imaging: Chest CT 05/12/18 00:00 CONCLUSION: 1. Confluent opacity in the right upper lobe that is new when compared to the prior study 2016. Morphology would favor scarring. There is mild associated bronchiectasis. More acute consolidation is also in the differential diagnosis. Neoplasm would be less likely but is in the differential diagnosis. Recommend a follow-up noncontrast chest CT confirm stability or resolution in 3 months. 2. Minimal nonspecific groundglass opacity in the left upper lobe. The prominent bilateral groundglass opacity seen on prior study of 2017 is not seen on today's study. Head CT 05/12/18 00:00 CONCLUSION: 1. No acute intracranial abnormalities. Stable chronic white matter ischemic changes. . Venous Doppler Study 05/12/18 00:00 CONCLUSION: No evidence of lower extremity DVT on the right or left. Abdomen/Pelvis CT 05/12/18 15:00 CONCLUSION: 1. Questionable mild mural thickening of the colon that could indicate a mild colitis, especially transverse colon. 2. Heterogeneous renal parenchymal enhancement not as optimally evaluated as on prior study. Cannot exclude pyelonephritis. 3. Bhagat catheter in decompressed bladder. 4. Hiatal hernia. 5. Moderate coronary calcifications. Abdomen X-Ray 05/12/18 21:10 CONCLUSION: Nasogastric tube in the stomach with the tip at the gastroesophageal junction. Chest X-Ray 05/14/18 06:00 CONCLUSION: Stable masslike opacity right upper lobe measuring 2.5 cm as well as a vague nodular density in the left mid lung identified. Objective Remarks: GENERAL: Patient is 68yo lying in bed in NAD SKIN: Warm and dry. HEAD: Normocephalic. EYES: No scleral icterus. No injection or drainage. NECK: Supple, trachea midline. No JVD or lymphadenopathy. CARDIOVASCULAR: Regular rate and rhythm without murmurs, gallops, or rubs. RESPIRATORY: Breath sounds equal bilaterally. No accessory muscle use. GASTROINTESTINAL: Abdomen soft, normoactive bowel sounds, tenderness predominantly in the right upper quadrant MUSCULOSKELETAL: No cyanosis, or edema. Neuro: Awake and alert. Assessment and Plan - Assessment and Plan Plan: ASSESSMENT: Septic shock Toxic metabolic encephalopathy Severe C. difficile colitis/epid 027 positive Acute kidney failure Lactic acidosis Respiratory insufficiency Right upper lobe pneumonia/healthcare associated Acute pyelonephritis Leukopenia secondary to chemotherapy Immunocompromised state Metastatic breast cancer PLAN: NEURO: -Minimize any sedation. Monitor neuro status -CT of the head negative for acute findings RESP: -Continue with oxygen keep sats >92% -DuoNeb every 6 hours as needed -CT chest 05/12: Confluent opacity in the right upper lobe that is new when compared to the prior study 2016. Morphology would favor scarring. There is mild associated bronchiectasis. More acute consolidation is also in the differential diagnosis. Neoplasm would be less likely but is in the differential diagnosis. Recommend a -Will need repeat CT chest in 4-6 weeks to confirm stability or resolution CV: -Monitor HR and BP keep MAP>65mmHg -Lactic acid now 3.2 yesterday -Serial lactic acid monitoring till clear. -Continue with IVF GI: -C. difficile Epid 027 positive -Continue Dificid and p.o. vancomycin. GI following -Abdominal CT 05/11/18 did not show any evidence of severe colitis or toxic megacolon, but showed some evidence of acute pyelonephritis -Repeat CT without contrast 05/12/2018 mild colitis -Speech eval, start clear liquid diet if ok with GI, NG tube in place -Protonix 40 mg IV daily. -Zofran 8 mg IV q8 for Nausea : -Monitor renal function closely. Bhagat catheter. -See pyelonephritis treatment in ID section -Change IVF to D5W@75ml/hr, monitor sodium level ID: -Follow-up blood urine and sputum cultures. Urine Legionella and pneumococcal antigen negative -Continue PO Dificid and p.o. vancomycin for severe C Diff colitis -On Zosyn for possible pneumonia and ? pyelonephritis -Will consult ID. HEME: -Monitor CBC, coags -Oncology following. ENDO: -Electrolyte replacement per protocol -Sliding scale insulin if needed PROPH: -Bilateral lower extremity SCDs. Lovenox/Protonix LINES: -Utilize peripheral IVs, Mediport, Level 3
--- NOTE | 2018-05-14 09:08 | P.PNONC ---
Subjective Interval history: Ms. Sellers was seen and examined this morning, vital signs, labs, microbiology, web consultant notes all reviewed. Subjectively; patient reports improvement in her diarrhea, she denies acute distress such as difficulty breathing. She keeps telling me over and over that she had been telling her caregivers at the nursing facility about her diarrhea. She keeps saying "I almost ". Objective Vital Signs/Intake & Output: Vital Signs 05/13/18 09:25 05/13/18 09:30 05/13/18 10:00 Temperature Pulse Rate 123 H 121 H 124 H Respiratory Rate 31 H 31 H 23 Blood Pressure 148/67 H 150/76 H Pulse Oximetry 98 98 99 05/13/18 10:01 05/13/18 10:30 05/13/18 10:34 Temperature Pulse Rate 125 H 127 H 123 H Respiratory Rate 31 H 29 H 22 Blood Pressure 132/64 138/102 H 142/62 H Pulse Oximetry 98 80 L 05/13/18 11:00 05/13/18 11:30 05/13/18 12:00 Temperature Pulse Rate 120 H 120 H 109 H Respiratory Rate 24 30 H 23 Blood Pressure 147/63 H 148/67 H 149/65 H Pulse Oximetry 80 L 05/13/18 12:30 05/13/18 13:00 05/13/18 13:30 Temperature Pulse Rate 120 H 121 H 118 H Respiratory Rate 18 17 22 Blood Pressure 156/68 H 148/64 H 136/58 L Pulse Oximetry 05/13/18 14:00 05/13/18 14:27 05/13/18 14:30 Temperature Pulse Rate 121 H 113 H 113 H Respiratory Rate 24 18 18 Blood Pressure 141/104 H 146/63 H Pulse Oximetry 05/13/18 15:00 05/13/18 15:30 05/13/18 16:00 Temperature 98.9 F Pulse Rate 115 H 116 H 117 H Respiratory Rate 20 17 21 Blood Pressure 133/66 139/64 138/65 Pulse Oximetry 05/13/18 16:30 05/13/18 20:00 05/13/18 20:20 Temperature 98.4 F Pulse Rate 115 H 116 H 116 H Respiratory Rate 18 22 18 Blood Pressure 145/65 H 140/67 Pulse Oximetry 100 96 05/14/18 00:00 05/14/18 03:56 05/14/18 04:00 Temperature 98.4 F 98.9 F Pulse Rate 116 H 111 H 111 H Respiratory Rate 22 16 24 Blood Pressure 156/80 H 115/54 L Pulse Oximetry 100 94 L 05/14/18 08:00 Temperature Pulse Rate 106 H Respiratory Rate Blood Pressure Pulse Oximetry 100 Intake & Output 05/13/18 05/14/18 05/14/18 18:59 06:59 18:59 Intake Total 420 / 420 2374 / 2374 100 / 100 Output Total 1999 / 1999 1825 / 1825 Balance -1580 / -1580 549 / 549 100 / 100 Intake: IV 420 / 420 2013 / 2013 100 / 100 NS + KCl 40 mEq Inj 1,000 ML @ 1814 / 1814 100 mls/hr IV.CONT .Q10H WENDI Rx #:[id number] Calcium Chloride Inj 2 GM In NS 120 / 120 Inj 100 ML @ 120 mls/hr IV.SIG ONCE ONE Rx#:[id number] Zosyn 4.5 GM Premix 4.5 gm In 200 / 200 100 / 100 100 / 100 100 ml @ 200 mls/hr IV.SIG Q6H WENDI Rx#:[id number] KCl 40 mEq Premix Inj 40 meq In 100 / 100 100 / 100 100 ml @ 25 mls/hr IV.SIG Q2H PRN Rx#:[id number] Oral 0 / 0 240 / 240 Tube Irrigant 120 / 120 Output: Urine 0 / 0 1350 / 1350 Stool 1200 / 1200 475 / 475 Urine Amount (Catheter) 800 / 800 Indwelling Urethral Catheter 800 / 800 Other: # Incontinent Voids 2 Date of Last Bowel Movement 05/13/18 05/14/18 # Incontinent Bowel Movements 2 Result Diagrams: 05/14/18 06:00 05/14/18 06:00 Laboratory Results: Laboratory Results - last 24 hr 05/13/18 05/13/18 05/13/18 08:33 08:33 08:33 WBC RBC Hgb Hct MCV MCH MCHC RDW Plt Count MPV WBC Differential Manual diff final Seg Neuts % (Manual) 53 Band Neuts % (Manual) 3 Lymphocytes % (Manual) 35 Monocytes % (Manual) 8 Metamyelocytes % (Man) 1 Abs Neuts (Manual) 1.8 Toxic Granulation 1+ H Toxic Vacuolation Present H Platelet Estimate Normal Platelet Morphology Normal Ovalocytes 1+ H Acanthocytes (Spur) Occ H Sodium 146 H Potassium 2.5 L* D Chloride 107 D Carbon Dioxide 26.8 D Anion Gap 12 BUN 31 H Creatinine 1.81 H Estimated GFR 28 L POC Glucose Random Glucose 160 H Lactic Acid 3.9 H Calcium 6.1 L* Prot Corrected Calcium 6.7 L* D Magnesium 1.9 Total Bilirubin 1.2 H AST 51 H ALT 36 Alkaline Phosphatase 90 Total Protein 5.7 L Albumin 1.9 L 05/13/18 05/13/18 05/13/18 14:20 14:20 21:40 WBC RBC Hgb Hct MCV MCH MCHC RDW Plt Count MPV WBC Differential Seg Neuts % (Manual) Band Neuts % (Manual) Lymphocytes % (Manual) Monocytes % (Manual) Metamyelocytes % (Man) Abs Neuts (Manual) Toxic Granulation Toxic Vacuolation Platelet Estimate Platelet Morphology Ovalocytes Acanthocytes (Spur) Sodium 150 H Potassium 3.0 L Chloride 113 H Carbon Dioxide 27.4 Anion Gap 10 BUN 29 H Creatinine 1.52 H Estimated GFR 34 L POC Glucose 110 Random Glucose 116 H Lactic Acid 3.2 H Calcium 7.5 L D Prot Corrected Calcium Magnesium Total Bilirubin 1.2 H AST 38 H ALT 36 Alkaline Phosphatase 89 Total Protein 5.5 L Albumin 1.9 L 05/14/18 05/14/18 05/14/18 06:00 06:00 08:07 WBC 2.8 L RBC 3.49 L Hgb 10.5 L Hct 31.4 L MCV 90.0 MCH 30.0 MCHC 33.3 RDW 22.4 H Plt Count 128 L MPV 10.1 WBC Differential Seg Neuts % (Manual) Band Neuts % (Manual) Lymphocytes % (Manual) Monocytes % (Manual) Metamyelocytes % (Man) Abs Neuts (Manual) Toxic Granulation Toxic Vacuolation Platelet Estimate Platelet Morphology Ovalocytes Acanthocytes (Spur) Sodium 152 H Potassium 3.3 L Chloride 118 H Carbon Dioxide 25.5 Anion Gap 9 BUN 18 Creatinine 0.95 Estimated GFR 59 L POC Glucose Random Glucose 110 H Lactic Acid 1.2 Calcium 7.1 L* Prot Corrected Calcium 8.0 L D Magnesium 2.1 Total Bilirubin 0.8 AST 32 ALT 36 Alkaline Phosphatase 103 Total Protein 5.4 L Albumin 1.8 L Culture Results: Microbiology 05/12/18 15:32 Aerobic Blood Culture - Preliminary Blood - Line No growth in 1 day Anaerobic Blood Culture - Preliminary No growth in 1 day 05/12/18 15:25 Aerobic Blood Culture - Preliminary Blood - Line No growth in 1 day Anaerobic Blood Culture - Preliminary No growth in 1 day 05/11/18 22:20 Aerobic Blood Culture - Preliminary Blood - Peripheral No growth in 2 days Anaerobic Blood Culture - Final QNS - See aerobic report. 05/11/18 19:45 Aerobic Blood Culture - Preliminary Blood - Peripheral No growth in 2 days Anaerobic Blood Culture - Final QNS - See aerobic report. 05/12/18 16:00 Streptococcus pneumoniae Antigen (M - Final Urine - Catheterized Urine Presumptive negative for streptococcus pneumoniae antigen, suggesting no current or recent infection. Infection due to Streptococcus pneumoniae cannot be ruled out since the antigen present in the sample may be below the detection limit of the test. 05/12/18 16:00 Legionella Antigen - Final Urine - Catheterized Urine Presumptive negative for Legionella pneumophila serogroup 1 antigen in urine, suggesting no recent or recurrent infection. Infection due to Legionella cannot be ruled out since other serogroups and species may cause disease, antigen may not be present in urine in early infection, and the level of antigen present in the urine may be below the detection limit of the test. Imaging Studies: Impressions Chest X-Ray 05/11/18 00:00 CONCLUSION: Right upper lobe consolidation most characteristic of pneumonia. [id number] in superior vena cava. Head CT 05/12/18 00:00 CONCLUSION: 1. No acute intracranial abnormalities. Stable chronic white matter ischemic changes. . Chest X-Ray 05/12/18 13:35 CONCLUSION: Right upper lobe airspace disease similar to May 3. Abdomen/Pelvis CT 05/12/18 15:00 CONCLUSION: 1. Questionable mild mural thickening of the colon that could indicate a mild colitis, especially transverse colon. 2. Heterogeneous renal parenchymal enhancement not as optimally evaluated as on prior study. Cannot exclude pyelonephritis. 3. Bhagat catheter in decompressed bladder. 4. Hiatal hernia. 5. Moderate coronary calcifications. Chest X-Ray 05/14/18 06:00 CONCLUSION: Stable masslike opacity right upper lobe measuring 2.5 cm as well as a vague nodular density in the left mid lung identified. Medications: Active Medications Generic Name Dose Route Start Last Admin Trade Name Freq PRN Reason Stop Dose Admin Acetaminophen 650 mg 05/11/18 15:43 05/12/18 21:49 Tylenol PO 650 mg Q4H PRN Administration Temp > 100.4 Albuterol 1 ampul 05/12/18 16:00 05/14/18 03:56 Duoneb Neb (Wendi) NEB 1 ampul Q6HR NEB WENDI Administration Cholestyramine Resin 4 gm 05/13/18 21:00 05/14/18 08:10 Questran 4 Gm Pkt PO 4 gm BID WENDI Administration Diltiazem HCl 30 mg 05/12/18 14:00 05/12/18 17:56 Cardizem PO Not Given Q8HR WENDI Enoxaparin Sodium 40 mg 05/12/18 15:00 05/13/18 15:47 Lovenox Inj SQ 40 mg Q24H WENDI Administration Fidaxomicin 200 mg 05/12/18 14:30 05/14/18 08:10 Dificid PO 200 mg BID WENDI Administration Piperacillin/Tazobactam/Dextrose 4.5 gm in 100 mls @ 200 mls/hr 05/11/18 22: 00 05/14/18 07:08 Zosyn 4.5 Gm Premix IV.SIG Infused Q6H WENDI Infusion Potassium Chloride 40 meq in 100 mls @ 25 mls/hr 05/13/18 09:33 05/14/18 06: 57 Kcl 40 Meq Premix Inj IV.SIG 25 mls/hr Q2H PRN Administration For Potassium 2.8 - 3.2 mEq/L Lorazepam 1 mg 05/11/18 21:00 05/12/18 13:51 Ativan PO Not Given BID [facility] Metoprolol Tartrate 25 mg 05/12/18 09:00 05/12/18 09:23 Lopressor PO Not Given DAILY [facility] Ondansetron HCl 8 mg 05/11/18 14:08 05/12/18 09:24 Zofran Inj IV.PUSH 8 mg Q8H PRN Administration VOMITING Pantoprazole Sodium 40 mg 05/11/18 18:00 05/13/18 18:21 Protonix Inj IV.PUSH 40 mg Q24H WENDI Administration Pramipexole Dihydrochloride 1 mg 05/11/18 21:00 05/13/18 21:08 Mirapex PO 1 mg HS WENDI Administration Sodium Chloride 2 ml 05/11/18 09:37 05/11/18 14:27 Ns Flush IV.FLUSH 2 ml PRN PRN Administration FLUSH AFTER USING IV ACCESS Vancomycin HCl 500 mg 05/12/18 18:00 05/14/18 08:10 Vancomycin Po PO 500 mg QID WENDI Administration Objective Remarks: GENERAL: Elderly and chronically ill-appearing female, sitting up in bed, NG tube in her nostril and two-point soft wrist restraints. SKIN: Cool and dry. HEAD: Normocephalic. EYES: Conjunctivae are pale, no scleral icterus. No injection or drainage. NECK: Supple, trachea midline. No JVD or lymphadenopathy. LYMPHATIC: No adenopathy. CARDIOVASCULAR: Tachycardic, regular, S1-S2 systolic murmur. RESPIRATORY: Poor inspiratory effort, decreased bibasilar breath sounds, scattered crepitus. GASTROINTESTINAL: Protuberant abdomen, soft, no obvious tenderness, positive bowel sounds. EXTREMITIES: Extremities are cool to the touch, no pretibial edema no calf tenderness. MUSCULOSKELETAL: Generally decreased muscle mass and tone. NEUROLOGICAL: No obvious focal deficit. Awake, alert, and oriented x3. PSYCHIATRIC: Anxious and tearful. Assessment/Plan - Plan Ms. Sellers is a 68-year-old female with a diagnosis of metastatic breast carcinoma, she has extensive skeletal metastases and had been on palliative systemic therapy with single agent Taxol. Over the past 3 weeks she had been hospitalized and then discharged to a alf facility, she had been treated in the recent past with levofloxacin for management of a urinary tract infection. She subsequently developed diarrhea and subsequent sepsis. She presented to this hospital with confusion, lethargy and difficulty breathing. She was also noted to be in acute renal failure. Over the past 48 hours she has been aggressively resuscitated and has been treated with appropriate antibiotics with improvement in her cognition, improved hemodynamic parameters and improve renal function. Plan: 1. Severe sepsis with septic shock and lactic acidosis: Secondary to C. difficile colitis. Currently on treatment with oral vancomycin and fidaxomicin. 2. Metastatic breast cancer: Treatment will remain on hold until she has recovered from this acute life threatening episode. 3. Cytopenias: Worsened, she had received weekly doses of Taxol over the past 2 weeks, likely some element of myelosuppression exist. 4. Renal failure: Improved with hydration. Continue ongoing care.
[2018-05-14] MEDS: Dextrose 5% in Water Inj 1,000 ML IV.CONT SCH (09:15)
--- NOTE | 2018-05-14 09:32 | P.PNFP ---
Subjective Interval history: Pt seen and examined bedside this morning. Pt has NG tube in place and would like her NG tube taken out. She is still in soft restraints and is frustrated by this. She is AAO x 3. She denies any N/V. Denies any CP/SOB/dizzyness. Results - Labs Result diagrams: 05/14/18 06:00 05/14/18 06:00 Abnormal lab results 05/13/18 05/13/18 05/13/18 Range/Units 08:33 14:20 14:20 WBC (4.0-11.0) th/mm3 RBC (4.00-5.30) mil/mm3 Hgb (11.6-15.3) gm/dL Hct (35.0-46.0) % RDW (11.6-17.2) % Plt Count (150-450) th/mm3 Toxic Granulation 1+ H (None) Toxic Vacuolation Present H (None) Ovalocytes 1+ H (None) Acanthocytes (Spur) Occ H (None) Sodium 150 H (136-145) meq/L Potassium 3.0 L (3.5-5.1) meq/L Chloride 113 H (98-107) meq/L BUN 29 H (7-18) mg/dL Creatinine 1.52 H (0.50-1.00) mg/dL Estimated GFR 34 L (>89) mL/min Random Glucose 116 H (74-106) mg/dL Lactic Acid 3.2 H (0.4-2.0) mmol/L Calcium 7.5 L D (8.5-10.1) mg/dL Prot Corrected Calcium (8.5-10.1) mg/dL Total Bilirubin 1.2 H (0.2-1.0) mg/dL AST 38 H (15-37) U/L Total Protein 5.5 L (6.4-8.2) g/dL Albumin 1.9 L (3.4-5.0) g/dL 05/14/18 05/14/18 Range/Units 06:00 06:00 WBC 2.8 L (4.0-11.0) th/mm3 RBC 3.49 L (4.00-5.30) mil/mm3 Hgb 10.5 L (11.6-15.3) gm/dL Hct 31.4 L (35.0-46.0) % RDW 22.4 H (11.6-17.2) % Plt Count 128 L (150-450) th/mm3 Toxic Granulation (None) Toxic Vacuolation (None) Ovalocytes (None) Acanthocytes (Spur) (None) Sodium 152 H (136-145) meq/L Potassium 3.3 L (3.5-5.1) meq/L Chloride 118 H (98-107) meq/L BUN (7-18) mg/dL Creatinine (0.50-1.00) mg/dL Estimated GFR 59 L (>89) mL/min Random Glucose 110 H (74-106) mg/dL Lactic Acid (0.4-2.0) mmol/L Calcium 7.1 L* (8.5-10.1) mg/dL Prot Corrected Calcium 8.0 L D (8.5-10.1) mg/dL Total Bilirubin (0.2-1.0) mg/dL AST (15-37) U/L Total Protein 5.4 L (6.4-8.2) g/dL Albumin 1.8 L (3.4-5.0) g/dL Short CBC 05/14/18 Range/Units 06:00 WBC 2.8 L (4.0-11.0) th/mm3 Hgb 10.5 L (11.6-15.3) gm/dL Hct 31.4 L (35.0-46.0) % Plt Count 128 L (150-450) th/mm3 BMP 05/13/18 05/14/18 14:20 06:00 Sodium 150 H 152 H Potassium 3.0 L 3.3 L Chloride 113 H 118 H Carbon Dioxide 27.4 25.5 BUN 29 H 18 Creatinine 1.52 H 0.95 Calcium 7.5 L D 7.1 L* Liver Function 05/13/18 05/14/18 Range/Units 14:20 06:00 Total Bilirubin 1.2 H 0.8 (0.2-1.0) mg/dL AST 38 H 32 (15-37) U/L ALT 36 36 (10-53) U/L Alkaline Phosphatase 89 103 (45-117) U/L Albumin 1.9 L 1.8 L (3.4-5.0) g/dL - Imaging Impressions Chest X-Ray 05/11/18 00:00 CONCLUSION: Right upper lobe consolidation most characteristic of pneumonia. [id number] in superior vena cava. Head CT 05/12/18 00:00 CONCLUSION: 1. No acute intracranial abnormalities. Stable chronic white matter ischemic changes. . Chest X-Ray 05/12/18 13:35 CONCLUSION: Right upper lobe airspace disease similar to May 3. Abdomen/Pelvis CT 05/12/18 15:00 CONCLUSION: 1. Questionable mild mural thickening of the colon that could indicate a mild colitis, especially transverse colon. 2. Heterogeneous renal parenchymal enhancement not as optimally evaluated as on prior study. Cannot exclude pyelonephritis. 3. Bhagat catheter in decompressed bladder. 4. Hiatal hernia. 5. Moderate coronary calcifications. Chest X-Ray 05/14/18 06:00 CONCLUSION: Stable masslike opacity right upper lobe measuring 2.5 cm as well as a vague nodular density in the left mid lung identified. Physical Exam Vital signs: Vital Signs 05/13/18 09:25 05/13/18 09:30 05/13/18 10:00 Temperature Pulse Rate 123 H 121 H 124 H Respiratory Rate 31 H 31 H 23 Blood Pressure 148/67 H 150/76 H Pulse Oximetry 98 98 99 05/13/18 10:01 05/13/18 10:30 05/13/18 10:34 Temperature Pulse Rate 125 H 127 H 123 H Respiratory Rate 31 H 29 H 22 Blood Pressure 132/64 138/102 H 142/62 H Pulse Oximetry 98 80 L 05/13/18 11:00 05/13/18 11:30 05/13/18 12:00 Temperature Pulse Rate 120 H 120 H 109 H Respiratory Rate 24 30 H 23 Blood Pressure 147/63 H 148/67 H 149/65 H Pulse Oximetry 80 L 05/13/18 12:30 05/13/18 13:00 05/13/18 13:30 Temperature Pulse Rate 120 H 121 H 118 H Respiratory Rate 18 17 22 Blood Pressure 156/68 H 148/64 H 136/58 L Pulse Oximetry 05/13/18 14:00 05/13/18 14:27 05/13/18 14:30 Temperature Pulse Rate 121 H 113 H 113 H Respiratory Rate 24 18 18 Blood Pressure 141/104 H 146/63 H Pulse Oximetry 05/13/18 15:00 05/13/18 15:30 05/13/18 16:00 Temperature 98.9 F Pulse Rate 115 H 116 H 117 H Respiratory Rate 20 17 21 Blood Pressure 133/66 139/64 138/65 Pulse Oximetry 05/13/18 16:30 05/13/18 17:00 05/13/18 17:30 Temperature Pulse Rate 115 H 113 H 120 H Respiratory Rate 18 24 22 Blood Pressure 145/65 H 146/66 H 129/76 Pulse Oximetry 05/13/18 18:00 05/13/18 18:01 05/13/18 18:30 Temperature Pulse Rate 118 H 119 H 116 H Respiratory Rate 21 21 22 Blood Pressure 159/68 H 141/60 H Pulse Oximetry 05/13/18 19:00 05/13/18 19:30 05/13/18 20:00 Temperature 98.4 F Pulse Rate 114 H 111 H 116 H Respiratory Rate 22 23 23 Blood Pressure 139/64 142/64 H 140/67 Pulse Oximetry 100 05/13/18 20:20 05/13/18 20:30 05/13/18 21:00 Temperature Pulse Rate 116 H 112 H 116 H Respiratory Rate 18 23 29 H Blood Pressure 144/64 H 146/67 H Pulse Oximetry 96 97 97 05/13/18 21:32 05/13/18 22:00 05/13/18 23:00 Temperature Pulse Rate 119 H 114 H 113 H Respiratory Rate 26 H 26 H 17 Blood Pressure 146/66 H Pulse Oximetry 97 97 96 05/14/18 00:00 05/14/18 01:00 05/14/18 02:00 Temperature 98.4 F Pulse Rate 114 H 113 H 109 H Respiratory Rate 26 H 27 H 25 H Blood Pressure 156/80 H Pulse Oximetry 100 97 05/14/18 03:00 05/14/18 03:05 05/14/18 03:09 Temperature Pulse Rate 110 H 113 H 114 H Respiratory Rate 24 28 H 24 Blood Pressure 145/100 H 139/98 H Pulse Oximetry 97 97 96 05/14/18 03:56 05/14/18 04:00 05/14/18 05:00 Temperature 98.9 F Pulse Rate 111 H 111 H 106 H Respiratory Rate 16 28 H 29 H Blood Pressure 115/54 L Pulse Oximetry 97 97 05/14/18 06:00 05/14/18 07:00 05/14/18 08:00 Temperature 98.6 F Pulse Rate 110 H 111 H 106 H Respiratory Rate 25 H 25 H 25 H Blood Pressure 152/55 H Pulse Oximetry 100 05/14/18 09:00 Temperature Pulse Rate 100 H Respiratory Rate 25 H Blood Pressure Pulse Oximetry 100 Intake & Output 05/13/18 05/14/18 05/14/18 18:59 06:59 18:59 Intake Total 420 / 420 2374 / 2374 100 / 100 Output Total 1999 1825 / 1825 Balance -1580 / -1580 549 / 549 100 / 100 Intake: IV 420 / 420 2013 100 / 100 NS + KCl 40 mEq Inj 1,000 ML @ 1814 / 1814 100 mls/hr IV.CONT .Q10H [facility]EDO Rx #:[id number] Calcium Chloride Inj 2 GM In NS 120 / 120 Inj 100 ML @ 120 mls/hr IV.SIG ONCE ONE Rx#:[id number] Zosyn 4.5 GM Premix 4.5 gm In 200 / 200 100 / 100 100 / 100 100 ml @ 200 mls/hr IV.SIG Q6H WILFREDO Rx#:[id number] KCl 40 mEq Premix Inj 40 meq In 100 / 100 100 / 100 100 ml @ 25 mls/hr IV.SIG Q2H PRN Rx#:[id number] Oral 0 / 0 240 / 240 Tube Irrigant 120 / 120 Output: Urine 0 / 0 1350 / 1350 Stool 1200 / 1200 475 / 475 Urine Amount (Catheter) 800 / 800 Indwelling Urethral Catheter 800 / 800 Other: # Incontinent Voids 2 Date of Last Bowel Movement 05/13/18 05/14/18 # Incontinent Bowel Movements 2 - Constitutional no acute distress - Routine Respiratory Exam Present: CTA bilaterally. Absent: accessory muscle use, prolonged expiratory phase, respiratory distress, wheezes - Routine Cardiovascular Exam Present: RRR, S1, S2 - Routine Abdominal Exam Present: soft, normoactive bowel sounds. Absent: tenderness, distended, guarding - Routine Extremities Exam Present: full ROM, pulses intact. Absent: cyanosis, clubbing, edema - Routine Skin Exam Present: intact - Routine Neurological Exam Present: alert, oriented X3 - Detailed Neurological Exam: Coma Scale Eye Opening: Spontaneous Verbal Response: Oriented Motor Response: [place]bey commands [place] Coma Scale Total: 15 - Routine Psychiatric Exam Present: normal affect - Urinary Catheter Management Indwelling Urethral Catheter Cath placed during this visit: yes Reason for continuing: Hourly intake/output Insertion date: 05/12/18 Insertion time: 15:00 Assessment and Plan - Assessment (1) SIRS (systemic inflammatory response syndrome) Code(s): R65.10 - Systemic inflammatory response syndrome (SIRS) of non- infectious origin without acute organ dysfunction Status: Acute Plan: Signs of severe sepsis with altered mental status, tachycardia, hypotension, skin mottling Transferred to ICU on 05/12 at 1400, follow-up recommendations of pack operator HR 97, BP 152/55, improved mental status Possible source of sepsis includes pneumonia, C. difficile colitis, bacteremia, pyelonephritis IV Vanc, Zosyn, and PO Flagyl (05/11-05/12) Per consult with GI and Critical Care MD, Continue on IV Zosyn, with PO Vanc and PO Dificid (05/12 - ) Chest x-ray today shows sustained right upper lobe opacity Repeat CT abdomen showed no change, possible pyelonephritis Venous Doppler negative, low suspicion for PE at this time given improvement with IV fluids and NG tube placement Blood cultures negative 1 day WBC stable On admission HR:143, RR:28, Bands: 18. Meets 3 out of 5 SIRS criteria. Unknown source of infection. Vancomycin and Zosyn added empirically for coverage. UA and Culture ordered. Follow Up. Chest Xray: Right upper lobe consolidation Blood cultures ordered, follow-up. CT of abdomen x 2; probable pyelonephritis as above, versus interstitial nephritis versus renal infarction versus renal lymphoma. 5 mm calcification could represent appendicolith Lipase negative Follow-up sputum culture. Urine strep pneumo antigen and Legionella antigens negative Continue to monitor vitals every 4. Follow-up CBC this a.m. Follow-up CMP in a.m. (2) Pneumonia Code(s): J18.9 - Pneumonia, unspecified organism Status: Acute Plan: Continue treatment for nosocomial pneumonia, prison related Continue IV Zosyn, p.o. vancomycin as above Chest x-ray 05/12: No change Chest x-ray 05/11: Right upper lobe consolidation most characteristic of pneumonia (3) Vomiting and diarrhea Code(s): R11.10 - Vomiting, unspecified; R19.7 - Diarrhea, unspecified Status : Acute Plan: No N/V this AM. Pending speech clearance for PO C. difficile positive, epit 027 positive Follow-up recommendations of GI; Dificid and vancomycin p.o., no evidence of toxic megacolon at this time -Patient may require stool transfer versus immunotherapy, poor prognosis CT negative 2 for any gallbladder pathology or obstruction mass s/p Flagyl 500 mg p.o. every 8 hours scheduled, monitor for vomiting, should be 10-14 day course (05/11-05/12) Will monitor for improvement Patient actively having dark green liquid stool Protonix 40 mg IV daily. Zofran 8 mg IV q8 for Nausea Continue to monitor CMP for any electrolyte abnormalities due to vomiting and diarrhea. (4) Pyelonephritis Code(s): N12 - Tubulo-interstitial nephritis, not specified as acute or chronic Status: Acute Plan: Possible pyelonephritis on CT versus renal infarction Continue empirical antibiotic treatment as above (5) Leukopenia due to antineoplastic chemotherapy Code(s): D70.1 - Agranulocytosis secondary to cancer chemotherapy; T45.1X5A - Adverse effect of antineoplastic and immunosuppressive drugs, initial encounter Status: Acute Plan: WBC: 3.3 on admission, worsening to 2.8 today. Possibly due to patient being on chemotherapy. Patient is currently afebrile. Oncology consulted. Appreciate recommendations. Patient's private oncologist Dr. Zuñiga to see her this morning, update us on baseline mental status for this patient Follow-up CBC, PT/INR, CMP in a.m. Continue to monitor vitals every 4. (6) Tachycardia Code(s): R00.0 - Tachycardia, unspecified Status: Acute Plan: Resolving with treatment for severe sepsis, HR 97 this AM Lovenox 40mg SQ continued for now Follow-up recommendations of pack operator (7) MARIELA (acute kidney injury) Code(s): N17.9 - Acute kidney failure, unspecified Status: Acute Plan: Creat this morning 0.95 Creatinine increased yesterday, likely due to CT 2 on 05/12, creatinine yesterday 1.81 Caution with IV contrast, nephrotoxins, NSAIDs Cr: 1.19 on admission. Baseline: 0.67 Possibly due to dehydration due to vomiting and diarrhea Continue rehydration with fluids. Follow-up CMP in a.m. (8) Metastatic breast cancer Code(s): C50.919 - Malignant neoplasm of unspecified site of unspecified female breast Status: Chronic Plan: Currently followed by Dr. Zuñiga, oncology. Worsening mental status today Spoke with Dr. Ayers, follow-up with Dr. Zuñiga tomorrow morning CT of abdomen with contrast: no additional tumors revealed CT head w/ and w/out IV contrast: No evidence of brain metastases. Stable chronic white matter ischemic changes Continue to treat for infxn Oncology consulted. Appreciate recommendations. (9) Hypernatremia Code(s): E87.0 - Hyperosmolality and hypernatremia Status: Acute Plan: Na 152 today D5w added (10) Nutrition, metabolism, and development symptoms Code(s): R63.8 - Other symptoms and signs concerning food and fluid intake Status: Acute Plan: Fluids: N.p.o. until Speech clears, with NG tube Electrolytes: Monitor and Replete as needed, hypernatremic this AM and started D5 Diet: N.p.o. until Speech clears, with NG tube for meds (11) DVT prophylaxis Status: Acute Plan: Lovenox 40 subcu daily - Assessment and Plan 68-year-old female currently undergoing chemotherapy for metastatic breast cancer , and severe sepsis with excessive tachycardia, vomiting and diarrhea, and pneumonia, C. difficile positive with pyelonephritis on CT. Discharge Planning: Discharge pending clinical improvement, poor prognosis
--- NOTE | 2018-05-14 12:18 | P.CONID ---
History of Present Illness Service: ID Consult date: 05/14/18 Requesting Physician: Kyra Lemos Reason for Consult: ? pyelo, C.diff Primary Care Provider: MERLENE Flanagan Chief Complaint: AMS, hypotension History of Present Illness: 68 yo with metastatis breast cancer of metastatic breast carcinoma, she has extensive skeletal metastases and had been on palliative systemic therapy with single agent Taxol she was admitted on 05/11 with nausea, vomiting diaarrhea C.diff +, hypervuirulent strain 027 Home meds iclude levaquie Pt reports living with a sister who has been battling C.diff for months Pt reports no prior episodes of C.diff denies disuria and back pain started on flagyl, vanco po and became hypotnsive on the floor transferred to ICU yday with lethargy, hypotension Lactic acidosis of 4.2, cleared with fluids resuscitation not on pressors BP is stable not on pressors, but receiving fluids zosyn added CT A/P wo contrast confirmed mural bowel wall thickening and also showed ? R side pyelo UA is negative, though Neurophils are low, expected from chemo Review of Systems All other systems reviewed negative except as stated in HPI PMFSH - History History Provided By: Patient - Medical History Medical History: Medical History (Last Reviewed 05/25/18 @ 23:35 by Joann Maldonado MD) Breast cancer GERD (gastroesophageal reflux disease) Invasive lobular carcinoma of breast, stage 4 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 Port-A-Cath in place Psoriasis Psoriatic arthritis Restrictive lung disease - Surgical History Surgical History: Surgical History (Last Reviewed 05/25/18 @ 23:35 by Joann Maldonado MD) H/O mastectomy History of knee replacement History of open reduction and internal fixation (ORIF) procedure Status post chemotherapy Status post radiation therapy - Family History Family History: Family History (Last Reviewed 05/14/18 @ 11:55 by Joann Maldonado MD) Mother Fibrosarcoma Father Liver disease - Social History I have reviewed the patient's Social History: Yes - Tobacco History Second Hand Smoke Exposure: Yes Tobacco Use In Past 30 Days: No Smoking Status: Former smoker Tobacco Type: Cigarettes Packs Per Day: 0.5 (quit 8 weeks ago) - Alcohol History How Often Do You Have a Drink Containing Alcohol: Never - Substance Use History Substance History: No History of Abuse - Travel History Recent Travel in the [facility] Within the Last 8 Weeks: No Recent Travel Out of the Country Within the Last 8 Weeks: No - Immunization History Tetanus Immunization: <5 Years Hx Influenza Vaccine This Season: No Medications and Allergies Active Medications: Active Medications Acetaminophen (Tylenol) 650 mg PO Q4H PRN PRN Reason: Temp > 100.4 Last Admin: 05/12/18 21:49 Dose: 650 mg Al Hydroxide/Mg Hydroxide (Milk Of Magnesia Liq) 30 ml PO Q12H PRN PRN Reason: Mild Constipation Albuterol (Duoneb Neb (Wendi)) 1 ampul NEB Q6HR NEB [facility] Last Admin: 05/14/18 09:22 Dose: 1 ampul Bisacodyl (Dulcolax Supp) 10 mg RECTAL DAILY PRN PRN Reason: SEVERE CONSITIPATION Cholestyramine Resin (Questran 4 Gm Pkt) 4 gm PO BID [facility] Last Admin: 05/14/18 08:10 Dose: 4 gm Diltiazem HCl (Cardizem) 30 mg PO Q8HR [facility] Last Admin: 05/12/18 17:56 Dose: Not Given Enoxaparin Sodium (Lovenox Inj) 40 mg SQ Q24H [facility] Last Admin: 05/13/18 15:47 Dose: 40 mg Fidaxomicin (Dificid) 200 mg PO BID [facility] Last Admin: 05/14/18 08:10 Dose: 200 mg Piperacillin/Tazobactam/Dextrose (Zosyn 4.5 Gm Premix) 4.5 gm in 100 mls @ 200 mls/hr IV.SIG Q6H [facility] Last Infusion: 05/14/18 11:17 Dose: Infused Magnesium Sulfate Inj 4 gm/ (Sodium Chloride) 100 mls @ 50 mls/hr IV.SIG UNSCH PRN PRN Reason: For Magnesium 0.9 - 1.1 mg/dL Magnesium Sulfate Inj 2 gm/ (Sodium Chloride) 100 mls @ 50 mls/hr IV.SIG UNSCH PRN PRN Reason: For Magnesium 1.2 - 1.6 mg/dL Potassium Chloride (Kcl 40 Meq Premix Inj) 40 meq in 100 mls @ 25 mls/hr IV.SIG Q2H PRN PRN Reason: For Potassium 2.8 - 3.2 mEq/L Last Infusion: 05/14/18 11:17 Dose: Infused Potassium Chloride (Kcl 20 Meq Premix Inj) 20 meq in 100 mls @ 50 mls/hr IV.SIG Q2H PRN PRN Reason: For Potassium 3.3 - 3.5 mEq/L Potassium Chloride (Kcl 40 Meq Premix Inj) 40 meq in 100 mls @ 25 mls/hr IV.SIG UNSCH PRN PRN Reason: For Potassium 3.3 - 3.5 mEq/L Potassium Chloride (Kcl 20 Meq Premix Inj) 20 meq in 100 mls @ 50 mls/hr IV.SIG Q2H PRN PRN Reason: For Potassium 2.8 - 3.2 mEq/L Potassium Phosphate 30 mmol/ (Sodium Chloride) 260 mls @ 42 mls/hr IV.SIG UNSCH PRN PRN Reason: SEE LABEL COMMENTS Sodium Phosphate 30 mmol/ (Sodium Chloride) 260 mls @ 42 mls/hr IV.SIG UNSCH PRN PRN Reason: For Phosphorus < 2.5 mg/dL Dextrose (D5w Inj) 1,000 mls @ 75 mls/hr IV.CONT .[id number] [facility] Last Admin: 05/14/18 09:15 Dose: 75 mls/hr Lorazepam (Ativan) 1 mg PO BID [facility] Last Admin: 05/12/18 13:51 Dose: Not Given Magnesium Oxide (Mag-Ox) 800 mg PO UNSCH PRN PRN Reason: For Magnesium 1.2 - 1.6 mg/dL Metoprolol Tartrate (Lopressor) 25 mg PO DAILY [facility] Last Admin: 05/12/18 09:23 Dose: Not Given Ondansetron HCl (Zofran Inj) 8 mg IV.PUSH Q8H PRN PRN Reason: VOMITING Last Admin: 05/12/18 09:24 Dose: 8 mg Pantoprazole Sodium (Protonix Inj) 40 mg IV.PUSH Q24H [facility] Last Admin: 05/13/18 18:21 Dose: 40 mg Potassium Bicarb/Potassium Chloride (K-Lyte Cl Eff) 50 meq PO UNSCH PRN PRN Reason: For Potassium 3.3 - 3.5 mEq/L Potassium Phosphate (K-Phos Original) 2,000 mg PO Q4H PRN PRN Reason: Phosphorus Less Than 2.5 mg/dL Potassium Phosphate (K-Phos Original) 2,000 mg PO UNSCH PRN PRN Reason: SEE LABEL COMMENTS Pramipexole Dihydrochloride (Mirapex) 1 mg PO HS [facility] Last Admin: 05/13/18 21:08 Dose: 1 mg Sennosides (Senokot) 17.2 mg PO Q12H PRN PRN Reason: Moderate Constipation Sodium Chloride (Ns Flush) 2 ml IV.FLUSH PRN PRN PRN Reason: FLUSH AFTER USING IV ACCESS Last Admin: 05/11/18 14:27 Dose: 2 ml Temazepam (Restoril) 15 mg PO HS PRN PRN Reason: INSOMNIA Tramadol HCl (Ultram) 50 mg PO Q6H PRN PRN Reason: PAIN SCALE 1 TO 10 Vancomycin HCl (Vancomycin Po) 500 mg PO QID [facility] Last Admin: 05/14/18 08:10 Dose: 500 mg Allergies Allergy/AdvReac Type Severity Reaction Status Date / Time hydromorphone [From Dilaudid] AdvReac Intermediate Dizziness Verified 05/11/18 10:38 Exam Vital signs: Vital Signs 05/13/18 12:00 05/13/18 12:30 05/13/18 13:00 Temperature Pulse Rate 109 H 120 H 121 H Respiratory Rate 23 18 17 Blood Pressure 149/65 H 156/68 H 148/64 H Pulse Oximetry 05/13/18 13:30 05/13/18 14:00 05/13/18 14:27 Temperature Pulse Rate 118 H 121 H 113 H Respiratory Rate 22 24 18 Blood Pressure 136/58 L 141/104 H Pulse Oximetry 05/13/18 14:30 05/13/18 15:00 05/13/18 15:30 Temperature Pulse Rate 113 H 115 H 116 H Respiratory Rate 18 20 17 Blood Pressure 146/63 H 133/66 139/64 Pulse Oximetry 05/13/18 16:00 05/13/18 16:30 05/13/18 17:00 Temperature 98.9 F Pulse Rate 117 H 115 H 113 H Respiratory Rate 21 18 24 Blood Pressure 138/65 145/65 H 146/66 H Pulse Oximetry 05/13/18 17:30 05/13/18 18:00 05/13/18 18:01 Temperature Pulse Rate 120 H 118 H 119 H Respiratory Rate 22 21 21 Blood Pressure 129/76 159/68 H Pulse Oximetry 05/13/18 18:30 05/13/18 19:00 05/13/18 19:30 Temperature Pulse Rate 116 H 114 H 111 H Respiratory Rate 22 22 23 Blood Pressure 141/60 H 139/64 142/64 H Pulse Oximetry 05/13/18 20:00 05/13/18 20:20 05/13/18 20:30 Temperature 98.4 F Pulse Rate 116 H 116 H 112 H Respiratory Rate 23 18 23 Blood Pressure 140/67 144/64 H Pulse Oximetry 100 96 97 05/13/18 21:00 05/13/18 21:32 05/13/18 22:00 Temperature Pulse Rate 116 H 119 H 114 H Respiratory Rate 29 H 26 H 26 H Blood Pressure 146/67 H 146/66 H Pulse Oximetry 97 97 97 05/13/18 23:00 05/14/18 00:00 05/14/18 01:00 Temperature 98.4 F Pulse Rate 113 H 114 H 113 H Respiratory Rate 17 26 H 27 H Blood Pressure 156/80 H Pulse Oximetry 96 100 05/14/18 02:00 05/14/18 03:00 05/14/18 03:05 Temperature Pulse Rate 109 H 110 H 113 H Respiratory Rate 25 H 24 28 H Blood Pressure 145/100 H Pulse Oximetry 97 97 97 05/14/18 03:09 05/14/18 03:56 05/14/18 04:00 Temperature 98.9 F Pulse Rate 114 H 111 H 111 H Respiratory Rate 24 16 28 H Blood Pressure 139/98 H 115/54 L Pulse Oximetry 96 97 05/14/18 05:00 05/14/18 06:00 05/14/18 07:00 Temperature Pulse Rate 106 H 110 H 111 H Respiratory Rate 29 H 25 H 25 H Blood Pressure Pulse Oximetry 97 05/14/18 08:00 05/14/18 09:00 05/14/18 09:23 Temperature 98.6 F Pulse Rate 106 H 100 H 97 H Respiratory Rate 25 H 25 H 16 Blood Pressure 152/55 H Pulse Oximetry 100 100 Intake & Output 05/13/18 05/14/18 05/14/18 18:59 06:59 18:59 Intake Total 420 / 420 2374 / 2374 700 / 700 Output Total 1999 1825 / 1825 Balance -1580 / -1580 549 / 549 700 / 700 Intake: IV 420 / 420 2013 700 / 700 NS + KCl 40 mEq Inj 1,000 ML @ 1814 / 1814 400 / 400 100 mls/hr IV.CONT .Q10H [facility] Rx #:[id number] Calcium Chloride Inj 2 GM In NS 120 / 120 Inj 100 ML @ 120 mls/hr IV.SIG ONCE ONE Rx#:[id number] Zosyn 4.5 GM Premix 4.5 gm In 200 / 200 100 / 100 200 / 200 100 ml @ 200 mls/hr IV.SIG Q6H [facility] Rx#:[id number] KCl 40 mEq Premix Inj 40 meq In 100 / 100 100 / 100 100 / 100 100 ml @ 25 mls/hr IV.SIG Q2H PRN Rx#:[id number] Oral 0 / 0 240 / 240 Tube Irrigant 120 / 120 Output: Urine 0 / 0 1350 / 1350 Stool 1200 / 1200 475 / 475 Urine Amount (Catheter) 800 / 800 Indwelling Urethral Catheter 800 / 800 Other: # Incontinent Voids 2 Date of Last Bowel Movement 05/13/18 05/14/18 # Incontinent Bowel Movements 2 - Constitutional no acute distress, morbidly obese - Routine HEENT Exam Head: Present: normocephalic, atraumatic Eye: Present: EOMI, PERRL ENT: Present: mucous membranes dry, oropharynx clear Comments: edentulous - Routine Neck Exam Present: supple, full ROM - Routine Chest/Breast/Axilla Exam Breast: Present: left mastectomy (well healed scar) Comments: PORT in place looks OK - Routine Respiratory Exam Present: decreased breath sounds, CTA bilaterally - Routine Cardiovascular Exam Present: S1, S2, tachycardia Comments: no urmurs rubs and gallops - Routine Abdominal Exam Present: soft, normoactive bowel sounds, tenderness (disffuse w/o rebound) Comments: no hepatosplenomegaly or masses dignisheild in place with liquid brown stool - Routine Extremities Exam Present: cyanosis (prominent cyanosis all 4 extremeties), full ROM Comments: delayed refill cold and clammy - Routine Skin Exam Present: intact, cyanosis, mottling - Routine Neurological Exam Present: alert, CN II-XII intact, moving all extremities, vision grossly intact , hearing grossly intact - Routine Psychiatric Exam Present: cooperative, anxious Results - Labs CBC & Chem 7: 05/24/18 08:10 05/24/18 13:36 Labs: Laboratory Results - last 24 hr 05/13/18 05/13/18 05/13/18 14:20 14:20 21:40 WBC RBC Hgb Hct MCV MCH MCHC RDW Plt Count MPV Sodium 150 H Potassium 3.0 L Chloride 113 H Carbon Dioxide 27.4 Anion Gap 10 BUN 29 H Creatinine 1.52 H Estimated GFR 34 L POC Glucose 110 Random Glucose 116 H Lactic Acid 3.2 H Calcium 7.5 L D Prot Corrected Calcium Magnesium Total Bilirubin 1.2 H AST 38 H ALT 36 Alkaline Phosphatase 89 Total Protein 5.5 L Albumin 1.9 L 05/14/18 05/14/18 05/14/18 06:00 06:00 08:07 WBC 2.8 L RBC 3.49 L Hgb 10.5 L Hct 31.4 L MCV 90.0 MCH 30.0 MCHC 33.3 RDW 22.4 H Plt Count 128 L MPV 10.1 Sodium 152 H Potassium 3.3 L Chloride 118 H Carbon Dioxide 25.5 Anion Gap 9 BUN 18 Creatinine 0.95 Estimated GFR 59 L POC Glucose Random Glucose 110 H Lactic Acid 1.2 Calcium 7.1 L* Prot Corrected Calcium 8.0 L D Magnesium 2.1 Total Bilirubin 0.8 AST 32 ALT 36 Alkaline Phosphatase 103 Total Protein 5.4 L Albumin 1.8 L - Imaging Impressions Chest X-Ray 05/11/18 00:00 CONCLUSION: Right upper lobe consolidation most characteristic of pneumonia. [id number] in superior vena cava. Head CT 05/12/18 00:00 CONCLUSION: 1. No acute intracranial abnormalities. Stable chronic white matter ischemic changes. . Chest X-Ray 05/12/18 13:35 CONCLUSION: Right upper lobe airspace disease similar to May 3. Abdomen/Pelvis CT 05/12/18 15:00 CONCLUSION: 1. Questionable mild mural thickening of the colon that could indicate a mild colitis, especially transverse colon. 2. Heterogeneous renal parenchymal enhancement not as optimally evaluated as on prior study. Cannot exclude pyelonephritis. 3. Bhagat catheter in decompressed bladder. 4. Hiatal hernia. 5. Moderate coronary calcifications. Chest X-Ray 05/14/18 06:00 CONCLUSION: Stable masslike opacity right upper lobe measuring 2.5 cm as well as a vague nodular density in the left mid lung identified. Assessment and Plan - Plan Metastatic breadst Ca sp chemo Mildly cytopenic, liklely suppressed from chemo Hypervirulent 027 C.diff Severe sepsis: likely C/diff ? R side pyelo, though UA, clin presntation not cw pyelo ARF - imnproved with IVF resuscitation cont IV flagyl, po vanco cont Dificid Clinically unlikely pyelo will dc zosyn since systemic abx can make her C.diff worse POssibly CT A/P with contrast
--- NOTE | 2018-05-14 13:45 | P.PNGI ---
Subjective Interval history: Pt resting in bed. States the diarrhea seems to be improving. Rectal bag with liquid green colored stool. Pt denies nausea, vomiting, abdominal pain. On liquid diet but not much of an appetite <Isabelle Dixon - Last Filed: 05/14/18 13:45> Physical Exam Vital signs: Vital Signs 05/13/18 14:00 05/13/18 14:27 05/13/18 14:30 Temperature Pulse Rate 121 H 113 H 113 H Respiratory Rate 24 18 18 Blood Pressure 141/104 H 146/63 H Pulse Oximetry 05/13/18 15:00 05/13/18 15:30 05/13/18 16:00 Temperature 98.9 F Pulse Rate 115 H 116 H 117 H Respiratory Rate 20 17 21 Blood Pressure 133/66 139/64 138/65 Pulse Oximetry 05/13/18 16:30 05/13/18 17:00 05/13/18 17:30 Temperature Pulse Rate 115 H 113 H 120 H Respiratory Rate 18 24 22 Blood Pressure 145/65 H 146/66 H 129/76 Pulse Oximetry 05/13/18 18:00 05/13/18 18:01 05/13/18 18:30 Temperature Pulse Rate 118 H 119 H 116 H Respiratory Rate 21 21 22 Blood Pressure 159/68 H 141/60 H Pulse Oximetry 05/13/18 19:00 05/13/18 19:30 05/13/18 20:00 Temperature 98.4 F Pulse Rate 114 H 111 H 116 H Respiratory Rate 22 23 23 Blood Pressure 139/64 142/64 H 140/67 Pulse Oximetry 100 05/13/18 20:20 05/13/18 20:30 05/13/18 21:00 Temperature Pulse Rate 116 H 112 H 116 H Respiratory Rate 18 23 29 H Blood Pressure 144/64 H 146/67 H Pulse Oximetry 96 97 97 05/13/18 21:32 05/13/18 22:00 05/13/18 23:00 Temperature Pulse Rate 119 H 114 H 113 H Respiratory Rate 26 H 26 H 17 Blood Pressure 146/66 H Pulse Oximetry 97 97 96 05/14/18 00:00 05/14/18 01:00 05/14/18 02:00 Temperature 98.4 F Pulse Rate 114 H 113 H 109 H Respiratory Rate 26 H 27 H 25 H Blood Pressure 156/80 H Pulse Oximetry 100 97 05/14/18 03:00 05/14/18 03:05 05/14/18 03:09 Temperature Pulse Rate 110 H 113 H 114 H Respiratory Rate 24 28 H 24 Blood Pressure 145/100 H 139/98 H Pulse Oximetry 97 97 96 05/14/18 03:56 05/14/18 04:00 05/14/18 05:00 Temperature 98.9 F Pulse Rate 111 H 111 H 106 H Respiratory Rate 16 28 H 29 H Blood Pressure 115/54 L Pulse Oximetry 97 97 05/14/18 06:00 05/14/18 07:00 05/14/18 08:00 Temperature 98.6 F Pulse Rate 110 H 111 H 106 H Respiratory Rate 25 H 25 H 25 H Blood Pressure 152/55 H Pulse Oximetry 100 05/14/18 09:00 05/14/18 09:23 05/14/18 10:00 Temperature Pulse Rate 100 H 97 H 101 H Respiratory Rate 25 H 16 23 Blood Pressure Pulse Oximetry 100 99 05/14/18 11:00 05/14/18 11:04 05/14/18 12:00 Temperature 98.4 F Pulse Rate 101 H 102 H 100 H Respiratory Rate 17 18 22 Blood Pressure 144/63 H 164/70 H Pulse Oximetry 98 99 96 Intake & Output 05/13/18 05/14/18 05/14/18 18:59 06:59 18:59 Intake Total 420 / 420 2374 / 2374 700 / 700 Output Total 1999 1825 / 1825 Balance -1580 / -1580 549 / 549 700 / 700 Intake: IV 420 / 420 2013 / 2013 700 / 700 NS + KCl 40 mEq Inj 1,000 ML @ 1814 / 1814 400 / 400 100 mls/hr IV.CONT .Q10H [facility] Rx #:[id number] Calcium Chloride Inj 2 GM In NS 120 / 120 Inj 100 ML @ 120 mls/hr IV.SIG ONCE ONE Rx#:[id number] Zosyn 4.5 GM Premix 4.5 gm In 200 / 200 100 / 100 200 / 200 100 ml @ 200 mls/hr IV.SIG Q6H [facility] Rx#:[id number] KCl 40 mEq Premix Inj 40 meq In 100 / 100 100 / 100 100 / 100 100 ml @ 25 mls/hr IV.SIG Q2H PRN Rx#:[id number] Oral 0 / 0 240 / 240 Tube Irrigant 120 / 120 Output: Urine 0 / 0 1350 / 1350 Stool 1200 / 1200 475 / 475 Urine Amount (Catheter) 800 / 800 Indwelling Urethral Catheter 800 / 800 Other: # Incontinent Voids 2 Date of Last Bowel Movement 05/13/18 05/14/18 # Incontinent Bowel Movements 2 - Constitutional no acute distress - Routine HEENT Exam Head: Present: normocephalic, atraumatic - Routine Respiratory Exam Absent: accessory muscle use - Routine Abdominal Exam Present: soft, normoactive bowel sounds. Absent: tenderness, distended - Routine Skin Exam Present: dry, warm - Routine Neurological Exam Present: alert, oriented X3 - Urinary Catheter Management Indwelling Urethral Catheter Cath placed during this visit: yes Reason for continuing: Hourly intake/output Insertion date: 05/12/18 Insertion time: 15:00 <Isabelle Dixon - Last Filed: 05/14/18 13:45> Vital signs: Vital Signs 05/13/18 19:00 05/13/18 19:30 05/13/18 20:00 Temperature 98.4 F Pulse Rate 114 H 111 H 116 H Respiratory Rate 22 23 23 Blood Pressure 139/64 142/64 H 140/67 Pulse Oximetry 100 05/13/18 20:20 05/13/18 20:30 05/13/18 21:00 Temperature Pulse Rate 116 H 112 H 116 H Respiratory Rate 18 23 29 H Blood Pressure 144/64 H 146/67 H Pulse Oximetry 96 97 97 05/13/18 21:32 05/13/18 22:00 05/13/18 23:00 Temperature Pulse Rate 119 H 114 H 113 H Respiratory Rate 26 H 26 H 17 Blood Pressure 146/66 H Pulse Oximetry 97 97 96 05/14/18 00:00 05/14/18 01:00 05/14/18 02:00 Temperature 98.4 F Pulse Rate 114 H 113 H 109 H Respiratory Rate 26 H 27 H 25 H Blood Pressure 156/80 H Pulse Oximetry 100 97 05/14/18 03:00 05/14/18 03:05 05/14/18 03:09 Temperature Pulse Rate 110 H 113 H 114 H Respiratory Rate 24 28 H 24 Blood Pressure 145/100 H 139/98 H Pulse Oximetry 97 97 96 05/14/18 03:56 05/14/18 04:00 05/14/18 05:00 Temperature 98.9 F Pulse Rate 111 H 111 H 106 H Respiratory Rate 16 28 H 29 H Blood Pressure 115/54 L Pulse Oximetry 97 97 05/14/18 06:00 05/14/18 07:00 05/14/18 08:00 Temperature 98.6 F Pulse Rate 110 H 111 H 106 H Respiratory Rate 25 H 25 H 25 H Blood Pressure 152/55 H Pulse Oximetry 100 05/14/18 09:00 05/14/18 09:23 05/14/18 10:00 Temperature Pulse Rate 100 H 97 H 101 H Respiratory Rate 25 H 16 23 Blood Pressure Pulse Oximetry 100 99 05/14/18 11:00 05/14/18 11:04 05/14/18 12:00 Temperature 98.4 F Pulse Rate 101 H 102 H 100 H Respiratory Rate 17 18 22 Blood Pressure 144/63 H 164/70 H Pulse Oximetry 98 99 96 05/14/18 13:00 05/14/18 13:01 05/14/18 14:00 Temperature Pulse Rate 97 H 102 H 98 H Respiratory Rate 27 H 26 H 30 H Blood Pressure 150/67 H 149/66 H Pulse Oximetry 68 L 69 L 99 05/14/18 15:00 05/14/18 15:13 05/14/18 16:00 Temperature Pulse Rate 94 H 96 H 101 H Respiratory Rate 33 H 16 24 Blood Pressure 153/65 H 142/67 H Pulse Oximetry 99 70 L 05/14/18 17:00 05/14/18 18:00 05/14/18 18:01 Temperature 98 F Pulse Rate 101 H 106 H 103 H Respiratory Rate 33 H 27 H 31 H Blood Pressure 157/80 H 165/72 H Pulse Oximetry 89 L 99 99 Intake & Output 05/13/18 05/14/18 05/14/18 18:59 06:59 18:59 Intake Total 420 / 420 2374 / 2374 1200 / 1200 Output Total 1999 / 1999 1825 / 1825 830 / 830 Balance -1580 / -1580 549 / 549 370 / 370 Intake: IV 420 / 420 2013 700 / 700 NS + KCl 40 mEq Inj 1,000 ML @ 1814 / 1814 400 / 400 100 mls/hr IV.CONT .Q10H [facility] Rx #:[id number] Calcium Chloride Inj 2 GM In NS 120 / 120 Inj 100 ML @ 120 mls/hr IV.SIG ONCE ONE Rx#:[id number] Zosyn 4.5 GM Premix 4.5 gm In 200 / 200 100 / 100 200 / 200 100 ml @ 200 mls/hr IV.SIG Q6H [facility] Rx#:[id number] KCl 40 mEq Premix Inj 40 meq In 100 / 100 100 / 100 100 / 100 100 ml @ 25 mls/hr IV.SIG Q2H PRN Rx#:[id number] Oral 0 / 0 240 / 240 500 / 500 Tube Irrigant 120 / 120 Output: Urine 0 / 0 1350 / 1350 Stool 1200 / 1200 475 / 475 30 / 30 Urine Amount (Catheter) 800 / 800 800 / 800 Female External 0 / 0 Indwelling Urethral Catheter 800 / 800 800 / 800 Other: # Incontinent Voids 2 Date of Last Bowel Movement 05/13/18 05/14/18 # Incontinent Bowel Movements 2 - Urinary Catheter Management Indwelling Urethral Catheter Cath placed during this visit: yes, but has since been removed by the nurse Reason for continuing: Continue criteria not met Insertion date: 05/12/18 Insertion time: 15:00 Removal date: 05/14/18 Removal time: 17:28 Female External Cath placed during this visit: no <Ana Rudd - Last Filed: 05/14/18 18:48> Results - Labs CBC & Chem 7: 05/14/18 06:00 05/14/18 06:00 Laboratory Results - last 24 hr 05/13/18 05/13/18 05/13/18 14:20 14:20 21:40 WBC RBC Hgb Hct MCV MCH MCHC RDW Plt Count MPV Sodium 150 H Potassium 3.0 L Chloride 113 H Carbon Dioxide 27.4 Anion Gap 10 BUN 29 H Creatinine 1.52 H Estimated GFR 34 L POC Glucose 110 Random Glucose 116 H Lactic Acid 3.2 H Calcium 7.5 L D Prot Corrected Calcium Magnesium Total Bilirubin 1.2 H AST 38 H ALT 36 Alkaline Phosphatase 89 Total Protein 5.5 L Albumin 1.9 L 05/14/18 05/14/18 05/14/18 06:00 06:00 08:07 WBC 2.8 L RBC 3.49 L Hgb 10.5 L Hct 31.4 L MCV 90.0 MCH 30.0 MCHC 33.3 RDW 22.4 H Plt Count 128 L MPV 10.1 Sodium 152 H Potassium 3.3 L Chloride 118 H Carbon Dioxide 25.5 Anion Gap 9 BUN 18 Creatinine 0.95 Estimated GFR 59 L POC Glucose Random Glucose 110 H Lactic Acid 1.2 Calcium 7.1 L* Prot Corrected Calcium 8.0 L D Magnesium 2.1 Total Bilirubin 0.8 AST 32 ALT 36 Alkaline Phosphatase 103 Total Protein 5.4 L Albumin 1.8 L Microbiology 05/12/18 15:32 Blood - Line Aerobic Blood Culture - Preliminary No growth in 2 days 05/12/18 15:32 Blood - Line Anaerobic Blood Culture - Preliminary No growth in 2 days 05/12/18 15:25 Blood - Line Aerobic Blood Culture - Preliminary No growth in 2 days 05/12/18 15:25 Blood - Line Anaerobic Blood Culture - Preliminary No growth in 2 days 05/11/18 22:20 Blood - Peripheral Aerobic Blood Culture - Preliminary No growth in 3 days 05/11/18 22:20 Blood - Peripheral Anaerobic Blood Culture - Final QNS - See aerobic report. 05/11/18 19:45 Blood - Peripheral Aerobic Blood Culture - Preliminary No growth in 3 days 05/11/18 19:45 Blood - Peripheral Anaerobic Blood Culture - Final QNS - See aerobic report. - Imaging Impressions Chest X-Ray 05/11/18 00:00 CONCLUSION: Right upper lobe consolidation most characteristic of pneumonia. [id number] in superior vena cava. Head CT 05/12/18 00:00 CONCLUSION: 1. No acute intracranial abnormalities. Stable chronic white matter ischemic changes. . Chest X-Ray 05/12/18 13:35 CONCLUSION: Right upper lobe airspace disease similar to May 3. Abdomen/Pelvis CT 05/12/18 15:00 CONCLUSION: 1. Questionable mild mural thickening of the colon that could indicate a mild colitis, especially transverse colon. 2. Heterogeneous renal parenchymal enhancement not as optimally evaluated as on prior study. Cannot exclude pyelonephritis. 3. Bhagat catheter in decompressed bladder. 4. Hiatal hernia. 5. Moderate coronary calcifications. Chest X-Ray 05/14/18 06:00 CONCLUSION: Stable masslike opacity right upper lobe measuring 2.5 cm as well as a vague nodular density in the left mid lung identified. <Isabelle Dixon - Last Filed: 05/14/18 13:45> - Labs CBC & Chem 7: 05/14/18 06:00 05/14/18 15:16 Laboratory Results - last 24 hr 05/13/18 05/14/18 05/14/18 21:40 06:00 06:00 WBC 2.8 L RBC 3.49 L Hgb 10.5 L Hct 31.4 L MCV 90.0 MCH 30.0 MCHC 33.3 RDW 22.4 H Plt Count 128 L MPV 10.1 Sodium 152 H Potassium 3.3 L Chloride 118 H Carbon Dioxide 25.5 Anion Gap 9 BUN 18 Creatinine 0.95 Estimated GFR 59 L POC Glucose 110 Random Glucose 110 H Lactic Acid Calcium 7.1 L* Prot Corrected Calcium 8.0 L D Magnesium 2.1 Total Bilirubin 0.8 AST 32 ALT 36 Alkaline Phosphatase 103 Total Protein 5.4 L Albumin 1.8 L 05/14/18 05/14/18 08:07 15:16 WBC RBC Hgb Hct MCV MCH MCHC RDW Plt Count MPV Sodium 149 H Potassium 3.0 L Chloride 115 H Carbon Dioxide 26.2 Anion Gap 8 BUN 14 Creatinine 0.94 Estimated GFR 60 L POC Glucose Random Glucose 158 H Lactic Acid 1.2 Calcium 6.7 L* Prot Corrected Calcium 7.5 L Magnesium Total Bilirubin AST ALT Alkaline Phosphatase Total Protein 5.4 L Albumin Microbiology 05/12/18 15:32 Blood - Line Aerobic Blood Culture - Preliminary No growth in 2 days 05/12/18 15:32 Blood - Line Anaerobic Blood Culture - Preliminary No growth in 2 days 05/12/18 15:25 Blood - Line Aerobic Blood Culture - Preliminary No growth in 2 days 05/12/18 15:25 Blood - Line Anaerobic Blood Culture - Preliminary No growth in 2 days 05/11/18 22:20 Blood - Peripheral Aerobic Blood Culture - Preliminary No growth in 3 days 05/11/18 22:20 Blood - Peripheral Anaerobic Blood Culture - Final QNS - See aerobic report. 05/11/18 19:45 Blood - Peripheral Aerobic Blood Culture - Preliminary No growth in 3 days 05/11/18 19:45 Blood - Peripheral Anaerobic Blood Culture - Final QNS - See aerobic report. - Imaging Impressions Chest X-Ray 05/14/18 06:00 CONCLUSION: Stable masslike opacity right upper lobe measuring 2.5 cm as well as a vague nodular density in the left mid lung identified. <Bratu,Ana - Last Filed: 05/14/18 18:48> Assessment and Plan - Plan Assessment: - C. Diff colitis, epid positive in setting of immunocompromise Pt presented with nausea, vomiting, diarrhea. Pt started on Questran yesterday, states diarrhea seems to be improving some. Rectal bag with liquid green stool. Pt denies any continued nausea, vomiting, abdominal pain. On Dificid, oral Vanco, and IV Flagyl- ID following. Pt afebrile CT abdomen and pelvis WO IV contrast --> Questionable mild mural thickening of the colon that could indicate a mild colitis, especially transverse colon. - Metastatic breast cancer- oncology following (05/14) Pt reports improvement in diarrhea today, still with liquid green stool in rectal bag. Afebrile. Abdominal exam benign, pt denies any continued nausea, vomiting, abdominal pain. States not much of an appetite ID following Plan: Continue IV Flagyl Continue oral Vanc Continue Dificid Cholestyramine Monitor output Monitor for signs of worsening infection (no indication of toxic megacolon at this time) Liquid diet Further recommendations to follow Pt has been seen and examined by myself and Dr. Rudd and this note is written on her behalf <Isabelle Dixon - Last Filed: 05/14/18 13:45> - Attending Attestation seen, examined agree with above id following <Ana Rudd - Last Filed: 05/14/18 18:48>
[2018-05-14] MEDS: Enoxaparin Inj 40 MG/0.4 ML Syringe SQ SCH (14:35)
--- NOTE | 2018-05-14 14:36 | P.PNADD ---
Addendum to Inpatient Note Additional information: RUL infiltrate on CT and CXR Finding on CT A/P was dw radiologist. Non specific. - I dont think pt has a pyelo with the above clinical findings cont zosyn for PNA x 7 days total unless PNA diagnosis get rejected fu CXR and sputum clx dw Dr Taylor
[2018-05-14 16:22] LABS: Calcium 6.7 mg/dL (8.5-10.1); Carbon Dioxide 26.2 meq/L (21.0-32.0)
[2018-05-14 16:53] LABS: Total Protein 5.4 g/dL (6.4-8.2)
[2018-05-14] MEDS: Pantoprazole Inj 40 MG Vial IV.PUSH SCH (17:16)
[2018-05-15] MEDS: Dextrose 5% in Water Inj 1,000 ML IV.CONT SCH ×2 (03:13→13:29)
--- NOTE | 2018-05-15 03:58 | XR ---
EXAM DATE: 05/15/2018 3:29 AM EDT AGE/SEX: 68 years / Female INDICATIONS: Short of breath. CLINICAL DATA: This is the patient's subsequent encounter. Patient reports that signs and symptoms h ave been present for 1 week and indicates a pain score of 0/10. MEDICAL/SURGICAL HISTORY: Carcinoma, breast. Metastatic disease. Mastectomy, left. Total kne e replacement, left, Total knee replacement, right, ORIF left femur COMPARISON: [facility], CHEST 1V SINGLE AP, 05/14/2018. . FINDINGS: Cardiomegaly. Clear lungs. Right-sided portacatheter again seen. Degenerative changes of the spine. CONCLUSION: Clear lungs. Electronically signed by: Schuyler Dahl MD 05/15/2018 3:57 AM EDT
[2018-05-15] MEDS: Piperacil/Tazo 4.5 GM Premix 4.5 GM/100 ML BAG IV.SIG SCH ×4 (04:40→22:49)
--- NOTE | 2018-05-15 08:59 | P.PNFP ---
Subjective Interval history: Patient seen and examined bedside this morning. She has been tolerating liquid diet without any complications. She seems much more alert and talkative today. She continues to improve daily. NG tube was removed overnight. She still has a rectal bag, which is full of liquid dark green stool, changed from the bright green stool prior. Patient denies any current pain. She states she is short of breath when talking only. Results - Labs Result diagrams: 05/14/18 06:00 05/14/18 15:16 Abnormal lab results 05/14/18 Range/Units 15:16 Sodium 149 H (136-145) meq/L Potassium 3.0 L (3.5-5.1) meq/L Chloride 115 H (98-107) meq/L Estimated GFR 60 L (>89) mL/min Random Glucose 158 H (74-106) mg/dL Calcium 6.7 L* (8.5-10.1) mg/dL Prot Corrected Calcium 7.5 L (8.5-10.1) mg/dL Total Protein 5.4 L (6.4-8.2) g/dL BMP 05/14/18 15:16 Sodium 149 H Potassium 3.0 L Chloride 115 H Carbon Dioxide 26.2 BUN 14 Creatinine 0.94 Calcium 6.7 L* - Imaging Impressions Chest X-Ray 05/15/18 06:00 CONCLUSION: Clear lungs. Physical Exam Vital signs: Vital Signs 05/14/18 09:00 05/14/18 09:23 05/14/18 10:00 Temperature Pulse Rate 100 H 97 H 101 H Respiratory Rate 25 H 16 23 Blood Pressure Pulse Oximetry 100 99 05/14/18 11:00 05/14/18 11:04 05/14/18 12:00 Temperature 98.4 F Pulse Rate 101 H 102 H 100 H Respiratory Rate 17 18 22 Blood Pressure 144/63 H 164/70 H Pulse Oximetry 98 99 96 05/14/18 13:00 05/14/18 13:01 05/14/18 14:00 Temperature Pulse Rate 97 H 102 H 98 H Respiratory Rate 27 H 26 H 30 H Blood Pressure 150/67 H 149/66 H Pulse Oximetry 68 L 69 L 99 05/14/18 15:00 05/14/18 15:13 05/14/18 16:00 Temperature Pulse Rate 94 H 96 H 101 H Respiratory Rate 33 H 16 24 Blood Pressure 153/65 H 142/67 H Pulse Oximetry 99 70 L 05/14/18 17:00 05/14/18 18:00 05/14/18 18:01 Temperature 98 F Pulse Rate 101 H 106 H 103 H Respiratory Rate 33 H 27 H 31 H Blood Pressure 157/80 H 165/72 H Pulse Oximetry 89 L 99 99 05/14/18 19:55 05/14/18 20:00 05/14/18 20:34 Temperature 98.5 F Pulse Rate 93 H 67 Respiratory Rate 30 H 16 Blood Pressure 153/102 H Pulse Oximetry 98 95 100 05/15/18 00:00 05/15/18 04:00 Temperature 99.2 F 98.9 F Pulse Rate 96 H 93 H Respiratory Rate 28 H 25 H Blood Pressure 146/65 H 164/74 H Pulse Oximetry 99 97 Intake & Output 05/14/18 05/15/18 05/15/18 18:59 06:59 18:59 Intake Total 1300 / 1300 2000 / 2000 Output Total 830 / 830 700 / 700 Balance 470 / 470 1300 / 1300 Weight 116.5 kg Intake: IV 800 / 800 1400 / 1400 D5W Inj 1,000 ML @ 40 mls/hr IV 1000 / 1000 .CONT .Q24H [facility] Rx#:[id number] NS + KCl 40 mEq Inj 1,000 ML @ 400 / 400 100 mls/hr IV.CONT .Q10H [facility] Rx #:[id number] Zosyn 4.5 GM Premix 4.5 gm In 300 / 300 200 / 200 100 ml @ 200 mls/hr IV.SIG Q6H [facility] Rx#:[id number] KCl 40 mEq Premix Inj 40 meq In 100 / 100 200 / 200 100 ml @ 25 mls/hr IV.SIG Q2H PRN Rx#:[id number] Oral 500 / 500 600 / 600 Output: Stool 30 / 30 50 / 50 Urine Amount (Catheter) 800 / 800 650 / 650 Female External 0 / 0 650 / 650 Indwelling Urethral Catheter 800 / 800 Other: Date of Last Bowel Movement 05/14/18 - Constitutional no acute distress - Routine Respiratory Exam Present: CTA bilaterally. Absent: accessory muscle use, decreased breath sounds , respiratory distress - Routine Cardiovascular Exam Present: RRR, S1, S2 - Routine Abdominal Exam Present: soft, normoactive bowel sounds. Absent: guarding - Routine Neurological Exam Present: alert, oriented X3 - Urinary Catheter Management Indwelling Urethral Catheter Cath placed during this visit: yes, but has since been removed by the nurse Reason for continuing: Continue criteria not met Insertion date: 05/12/18 Insertion time: 15:00 Removal date: 05/14/18 Removal time: 17:28 Female External Cath placed during this visit: no Assessment and Plan - Assessment (1) SIRS (systemic inflammatory response syndrome) Code(s): R65.10 - Systemic inflammatory response syndrome (SIRS) of non- infectious origin without acute organ dysfunction Status: Acute Plan: Patient's mental status is improving, HR 96, RR 22, good perfusion -Clinical improvement and vital signs stable, NG Tube removed, anticipate transfer to regular medical floor soon On 05/12: Signs of severe sepsis with altered mental status, tachycardia, hypotension, skin mottling Transferred to ICU on 05/12 at 1400, with NG tube placement and GI management of severe resistant C. difficile. Possible source of sepsis includes pneumonia, C. difficile colitis, bacteremia IV Vanc, Zosyn, and PO Flagyl (05/11-05/12) Per consult with ID, GI and Critical Care MD, Continue on IV Zosyn, with PO Vanc and PO Dificid (05/12 - ) Chest x-ray 05/13-05/14 shows right upper lobe opacity, CXR clear of opacity today Repeat CT abdomen showed no change, possible pyelonephritis (ID dw with rads and likely not pyelo), possible mild colitis of transverse colon Venous Doppler negative, low suspicion for PE at this time given improvement with IV fluids and NG tube placement Blood cultures negative 2 day WBC stable Pending CBC, CMP today, problems with IV access ID recommendation; Cont Zosyn x 7 days (05/12 -05/19) to cover for PNA On admission HR:143, RR:28, Bands: 18. Meets 3 out of 5 SIRS criteria. Unknown source of infection. Vancomycin and Zosyn added empirically for coverage. UA and Culture ordered. UA negative, f/u uCx Chest Xray: Right upper lobe consolidation CT of abdomen x 2; probable pyelonephritis as above, versus interstitial nephritis versus renal infarction versus renal lymphoma. 5 mm calcification could represent appendicolith Lipase negative Follow-up sputum culture. Urine strep pneumo antigen and Legionella antigens negative (2) Pneumonia Code(s): J18.9 - Pneumonia, unspecified organism Status: Acute Plan: Continue treatment for nosocomial pneumonia, custodial related Continue IV Zosyn for PNA x 7 days as above, On PO Vanc for C. Diff Chest x-ray 05/12: No change Chest x-ray 05/11: Right upper lobe consolidation most characteristic of pneumonia (3) Vomiting and diarrhea Code(s): R11.10 - Vomiting, unspecified; R19.7 - Diarrhea, unspecified Status : Acute Plan: Resolved. C. difficile positive, epit 027 positive Follow-up recommendations of GI; Dificid and vancomycin p.o., no evidence of toxic megacolon at this time - Mild colitis of transverse colon on CT -Patient may require stool transfer versus immunotherapy, poor prognosis CT negative 2 for any gallbladder pathology or obstruction mass s/p Flagyl 500 mg p.o. (05/11-05/12) Will monitor for improvement Patient actively having dark green liquid stool Cont Vanc and Dific PO per ID Protonix 40 mg IV daily. Zofran 8 mg IV q8 for Nausea Continue to monitor CMP for any electrolyte abnormalities due to vomiting and diarrhea. (4) Pyelonephritis Code(s): N12 - Tubulo-interstitial nephritis, not specified as acute or chronic Status: Acute Plan: Possible pyelonephritis on CT versus renal infarction ID discussed w RADS, likely not pyelo (5) Leukopenia due to antineoplastic chemotherapy Code(s): D70.1 - Agranulocytosis secondary to cancer chemotherapy; T45.1X5A - Adverse effect of antineoplastic and immunosuppressive drugs, initial encounter Status: Acute Plan: WBC: 3.3 on admission, worsening to 2.8 yesterday, f/u labs today Possibly due to patient being on chemotherapy. Patient is currently afebrile. Oncology consulted. Appreciate recommendations. Patient's private oncologist Dr. Zuñiga to see , update us on baseline mental status for this patient Follow-up CBC, PT/INR, CMP in a.m. Continue to monitor vitals every 4. 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 Baseline: 0.67 Possibly due to dehydration due to vomiting and diarrhea Continue rehydration with fluids. Follow-up CMP in a.m. (9) Metastatic breast cancer Code(s): C50.919 - Malignant neoplasm of unspecified site of unspecified female breast Status: Chronic Plan: Currently followed by Dr. Zuñiga, oncology. Spoke with Dr. Ayers, follow-up with Dr. Zuñiga CT of abdomen with contrast: no additional tumors revealed CT head w/ and w/out IV contrast: No evidence of brain metastases. Stable chronic white matter ischemic changes Continue to treat for infxn Oncology consulted. Appreciate recommendations. (10) Nutrition, metabolism, and development symptoms Code(s): R63.8 - Other symptoms and signs concerning food and fluid intake Status: Acute Plan: Fluids: clear liquids, D5w fluids for hypernatremia Electrolytes: Monitor and Replete as needed, watching K level Diet: clear liquids (11) DVT prophylaxis Status: Acute Plan: Lovenox 40 subcu daily - Assessment and Plan 68-year-old female currently undergoing chemotherapy for metastatic breast cancer , and severe sepsis with excessive tachycardia, vomiting and diarrhea, and pneumonia, C. difficile positive with pyelonephritis on CT. Discharge Planning: Discharge pending clinical improvement, poor prognosis
--- NOTE | 2018-05-15 12:29 | P.PNCC ---
Subjective Subjective Remarks/Hospital Course: Patient is a 68-year-old female with history of metastatic breast cancer currently undergoing chemotherapy by Dr. Zuñiga, last dose of chemotherapy on Monday, history of psoriatic arthritis who presented to the presentation was emergency department with nausea, vomiting and diarrhea of about 24 hour duration prior to presentation. [facility] apparently she was having productive cough and the physician there started on Levaquin. WBC count on 3.3 with 18% bands. Her creatinine was slightly elevated at 1.2. Stool studies revealed she was positive for C. difficile and also positive for Epid 027, for which she was receiving p.o. Flagyl. Patient also receiving broad-spectrum antibiotics with IV vancomycin and IV Zosyn for right upper lobe pneumonia on chest x-ray, and probable acute pyelonephritis. Today patient was found to be increasingly confused lethargic more tachycardic and hypotensive. Patient was given 1 L normal saline fluid bolus. With concern for worsening sepsis patient was moved to the ICU and critical care medicine was consulted. I immediately evaluated the patient she is tachycardic very lethargic but wakes up to stimulation. She has extensive skin mottling problem most likely from severe sepsis. Her CT abdomen pelvis yesterday was unremarkable other than pyelonephritis, abdominal exam shows only mild tenderness. However ABG shows a pH of 7.43, PCO2 15.3, PO2 56 and base excess of -14. CBC CMP lactic acid is pending at this time. I have discussed the case with Dr. Gonzalez from GI. Discontinue p.o. Flagyl, discontinue IV vancomycin. I will start her on Dificid and p.o. vancomycin. Continue aggressive fluid resuscitation, change maintenance fluid to bicarbonate infusion. Repeat CT of the abdomen pelvis due to severe acidosis. Her prognosis is guarded given her age, immunosuppressed state metastatic cancer and severe C. difficile. 05/13: Remains critical but mentation is slightly improved. Remains tachycardic in 120s. Creatinine now 1.8. Lactic acid 3.9. Will give additional fluid bolus. Started on po Dificid and p.o. vancomycin yesterday via OG tube. There is no evidence of toxic megacolon at this time but wit the elevated creatinine patient has severe C. difficile colitis 05/14 Patient is lying in bed in NAD. Afebrile. Lactic acid trending down 3.2 yesterday. Renal function is improving with Cr: 0.95 this morning. SUBJECTIVE: 05/15: Resting in bed in no acute distress. Heart rate less than 100. Noted CT abdomen/pelvis revealed colitis/mild transverse colon. Tolerating diet. Wishes to get out of bed. Objective Vital Signs / I&O: Vital Signs 05/14/18 13:00 05/14/18 13:01 05/14/18 14:00 Temperature Pulse Rate 97 H 102 H 98 H Respiratory Rate 27 H 26 H 30 H Blood Pressure 150/67 H 149/66 H Pulse Oximetry 68 L 69 L 99 05/14/18 15:00 05/14/18 15:13 05/14/18 16:00 Temperature Pulse Rate 94 H 96 H 101 H Respiratory Rate 33 H 16 24 Blood Pressure 153/65 H 142/67 H Pulse Oximetry 99 70 L 05/14/18 17:00 05/14/18 18:00 05/14/18 18:01 Temperature 98 F Pulse Rate 101 H 106 H 103 H Respiratory Rate 33 H 27 H 31 H Blood Pressure 157/80 H 165/72 H Pulse Oximetry 89 L 99 99 05/14/18 19:55 05/14/18 20:00 05/14/18 20:34 Temperature 98.5 F Pulse Rate 93 H 67 Respiratory Rate 30 H 16 Blood Pressure 153/102 H Pulse Oximetry 98 95 100 05/15/18 00:00 05/15/18 04:00 05/15/18 08:00 Temperature 99.2 F 98.9 F 98.0 F Pulse Rate 96 H 93 H Respiratory Rate 28 H 25 H Blood Pressure 146/65 H 164/74 H Pulse Oximetry 99 97 05/15/18 09:36 Temperature Pulse Rate 96 H Respiratory Rate 22 Blood Pressure Pulse Oximetry 94 L Intake & Output 05/14/18 05/15/18 05/15/18 18:59 06:59 18:59 Intake Total 1300 / 1300 2000 / 1999 Output Total 830 / 830 700 / 700 Balance 470 / 470 1300 / 1300 Weight 116.5 kg Intake: IV 800 / 800 1400 / 1400 D5W Inj 1,000 ML @ 40 mls/hr IV 1000 / 1000 .CONT .Q24H [facility] Rx#:[id number] NS + KCl 40 mEq Inj 1,000 ML @ 400 / 400 100 mls/hr IV.CONT .Q10H [facility] Rx #:[id number] Zosyn 4.5 GM Premix 4.5 gm In 300 / 300 200 / 200 100 ml @ 200 mls/hr IV.SIG Q6H [facility] Rx#:[id number] KCl 40 mEq Premix Inj 40 meq In 100 / 100 200 / 200 100 ml @ 25 mls/hr IV.SIG Q2H [facility] Rx#:[id number] Oral 500 / 500 600 / 600 Output: Stool 30 / 30 50 / 50 Urine Amount (Catheter) 800 / 800 650 / 650 Female External 0 / 0 650 / 650 Indwelling Urethral Catheter 800 / 800 Other: Date of Last Bowel Movement 05/14/18 Result Diagrams: 05/14/18 06:00 05/14/18 15:16 Other Results: Microbiology 05/12/18 15:32 Blood - Line Aerobic Blood Culture - Preliminary No growth in 3 days 05/12/18 15:32 Blood - Line Anaerobic Blood Culture - Preliminary No growth in 3 days 05/12/18 15:25 Blood - Line Aerobic Blood Culture - Preliminary No growth in 3 days 05/12/18 15:25 Blood - Line Anaerobic Blood Culture - Preliminary No growth in 3 days 05/11/18 22:20 Blood - Peripheral Aerobic Blood Culture - Preliminary No growth in 4 days 05/11/18 22:20 Blood - Peripheral Anaerobic Blood Culture - Final QNS - See aerobic report. 05/11/18 19:45 Blood - Peripheral Aerobic Blood Culture - Preliminary No growth in 4 days 05/11/18 19:45 Blood - Peripheral Anaerobic Blood Culture - Final QNS - See aerobic report. 05/12/18 16:00 Urine - Catheterized Urine Streptococcus pneumoniae Antigen ( M - Final Presumptive negative for streptococcus pneumoniae antigen, suggesting no current or recent infection. Infection due to Streptococcus pneumoniae cannot be ruled out since the antigen present in the sample may be below the detection limit of the test. 05/12/18 16:00 Urine - Catheterized Urine Legionella Antigen - Final Presumptive negative for Legionella pneumophila serogroup 1 antigen in urine, suggesting no recent or recurrent infection. Infection due to Legionella cannot be ruled out since other serogroups and species may cause disease, antigen may not be present in urine in early infection, and the level of antigen present in the urine may be below the detection limit of the test. Imaging: Chest X-Ray 05/11/18 00:00 CONCLUSION: Right upper lobe consolidation most characteristic of pneumonia. [id number] in superior vena cava. Chest X-Ray 05/11/18 09:37 CONCLUSION: 1. No acute abnormality or significant interval change. Chest CT 05/12/18 00:00 CONCLUSION: 1. Confluent opacity in the right upper lobe that is new when compared to the prior study 2016. Morphology would favor scarring. There is mild associated bronchiectasis. More acute consolidation is also in the differential diagnosis. Neoplasm would be less likely but is in the differential diagnosis. Recommend a follow-up noncontrast chest CT confirm stability or resolution in 3 months. 2. Minimal nonspecific groundglass opacity in the left upper lobe. The prominent bilateral groundglass opacity seen on prior study of 2017 is not seen on today's study. Head CT 05/12/18 00:00 CONCLUSION: 1. No acute intracranial abnormalities. Stable chronic white matter ischemic changes. . Venous Doppler Study 05/12/18 00:00 CONCLUSION: No evidence of lower extremity DVT on the right or left. Abdomen/Pelvis CT 05/12/18 00:22 CONCLUSION: 1. Abnormal appearance to the left kidney with multiple wedge-shaped areas of decreased enhancement. The findings are characteristic of pyelonephritis with differential considerations of renal infarction, interstitial nephritis, and renal lymphoma. 2. 5 mm calcification in the cecum near the appendiceal orifice could represent an appendicolith. The appendix, however, has a normal size and radiographic appearance. Chest X-Ray 05/12/18 13:35 CONCLUSION: Right upper lobe airspace disease similar to May 3. Abdomen/Pelvis CT 05/12/18 15:00 CONCLUSION: 1. Questionable mild mural thickening of the colon that could indicate a mild colitis, especially transverse colon. 2. Heterogeneous renal parenchymal enhancement not as optimally evaluated as on prior study. Cannot exclude pyelonephritis. 3. Bhagat catheter in decompressed bladder. 4. Hiatal hernia. 5. Moderate coronary calcifications. Abdomen X-Ray 05/12/18 21:10 CONCLUSION: Nasogastric tube in the stomach with the tip at the gastroesophageal junction. Chest X-Ray 05/13/18 06:00 CONCLUSION: Persistent right upper lung opacity/infiltrate. No new findings. Chest X-Ray 05/14/18 06:00 CONCLUSION: Stable masslike opacity right upper lobe measuring 2.5 cm as well as a vague nodular density in the left mid lung identified. Chest X-Ray 05/15/18 06:00 CONCLUSION: Clear lungs. Objective Remarks: GENERAL: Patient is 68yo female lying in bed in NAD SKIN: Warm and dry. HEAD: Normocephalic. EYES: No scleral icterus. No injection or drainage. NECK: Supple, trachea midline. No JVD or lymphadenopathy. CARDIOVASCULAR: Regular rate and rhythm without murmurs, gallops, or rubs.. Port is clean dry and intact RESPIRATORY: Breath sounds equal bilaterally. No accessory muscle use. GASTROINTESTINAL: Abdomen soft, normoactive bowel sounds, tenderness predominantly in the right upper quadrant MUSCULOSKELETAL: Trace bilateral lower extremity edema. Neuro: Awake and alert. Assessment and Plan - Assessment and Plan Plan: ASSESSMENT: Septic shock Toxic metabolic encephalopathy Severe C. difficile colitis/epid 027 positive Acute kidney failure Lactic acidosis Respiratory insufficiency Right upper lobe pneumonia/healthcare associated Acute pyelonephritis Leukopenia secondary to chemotherapy Immunocompromised state Metastatic breast cancer/intralobular stage IV Leukocytosis Anemia Thrombocytopenia Hypernatremia Hypopotassemia Gastroesophageal reflux disease History of psoriasis/psoriasis arthritis History of restrictive lung disease PLAN: NEURO: -Minimize any sedation. Monitor neuro status -CT of the head negative for acute findings -Acetaminophen 650 every 4 hours as needed fever RESP: -Continue with oxygen keep sats >92% -Albuterol/ipratropium aerosols every 4 hours/albuterol every 2 hours as needed dyspnea -CT chest 05/12: Confluent opacity in the right upper lobe that is new when compared to the prior study 2016. Morphology would favor scarring. There is mild associated bronchiectasis. More acute consolidation is also in the differential diagnosis. Neoplasm would be less likely but is in the differential diagnosis. Recommend a -Will need repeat CT chest in 4-6 weeks to confirm stability or resolution CV: -Monitor HR and BP keep MAP>65mmHg -Lactic acid now 3.2 yesterday -Serial lactic acid monitoring till clear. -Continue with IVF -Currently on diltiazem 30 3 times daily. GI: -C. difficile Epid 027 positive -Continue fidaxomicin 200 milligrams twice daily and p.o. vancomycin 500 mg 4 times daily. GI following -Abdominal CT 05/11/18 did not show any evidence of severe colitis or toxic megacolon, but showed some evidence of acute pyelonephritis -Repeat CT without contrast 05/12/2018 mild colitis -Speech eval, start clear liquid diet if ok with GI since 05/13 -Pantoprazole 40 mg po daily. : -Monitor renal function closely. Bhagat catheter. -See pyelonephritis treatment in ID section -Change IVF to D5W@30ml/hr, monitor sodium level ID: -Follow-up blood urine and sputum cultures. Urine Legionella and pneumococcal antigen negative -Continue PO fidaxomicin and p.o. vancomycin for severe C Diff colitis -On Zosyn for possible pneumonia and ? pyelonephritis -Will consult ID. HEME: -Monitor CBC, coags -Oncology following. ENDO: -Electrolyte replacement per protocol -Sliding scale insulin if needed PROPH: -Bilateral lower extremity SCDs. Lovenox/Protonix LINES: -Utilize peripheral IVs, Mediport, Level 2
--- NOTE | 2018-05-15 12:41 | P.PNGI ---
Subjective Interval history: Pt resting in bed, denies any nausea, vomiting, abdominal pain. Continues to have liquid green stool. Tolerating liquid diet. <Isabelle Dixon - Last Filed: 05/15/18 12:37> Physical Exam Vital signs: Vital Signs 05/14/18 13:00 05/14/18 13:01 05/14/18 14:00 Temperature Pulse Rate 97 H 102 H 98 H Respiratory Rate 27 H 26 H 30 H Blood Pressure 150/67 H 149/66 H Pulse Oximetry 68 L 69 L 99 05/14/18 15:00 05/14/18 15:13 05/14/18 16:00 Temperature Pulse Rate 94 H 96 H 101 H Respiratory Rate 33 H 16 24 Blood Pressure 153/65 H 142/67 H Pulse Oximetry 99 70 L 05/14/18 17:00 05/14/18 18:00 05/14/18 18:01 Temperature 98 F Pulse Rate 101 H 106 H 103 H Respiratory Rate 33 H 27 H 31 H Blood Pressure 157/80 H 165/72 H Pulse Oximetry 89 L 99 99 05/14/18 19:55 05/14/18 20:00 05/14/18 20:34 Temperature 98.5 F Pulse Rate 93 H 67 Respiratory Rate 30 H 16 Blood Pressure 153/102 H Pulse Oximetry 98 95 100 05/15/18 00:00 05/15/18 04:00 05/15/18 08:00 Temperature 99.2 F 98.9 F 98.0 F Pulse Rate 96 H 93 H Respiratory Rate 28 H 25 H Blood Pressure 146/65 H 164/74 H Pulse Oximetry 99 97 05/15/18 09:36 Temperature Pulse Rate 96 H Respiratory Rate 22 Blood Pressure Pulse Oximetry 94 L Intake & Output 05/14/18 05/15/18 05/15/18 18:59 06:59 18:59 Intake Total 1300 / 1300 2000 / 2000 Output Total 830 / 830 700 / 700 Balance 470 / 470 1300 / 1300 Weight 116.5 kg Intake: IV 800 / 800 1400 / 1400 D5W Inj 1,000 ML @ 40 mls/hr IV 1000 / 1000 .CONT .Q24H [facility] Rx#:[id number] NS + KCl 40 mEq Inj 1,000 ML @ 400 / 400 100 mls/hr IV.CONT .Q10H [facility] Rx #:[id number] Zosyn 4.5 GM Premix 4.5 gm In 300 / 300 200 / 200 100 ml @ 200 mls/hr IV.SIG Q6H [facility] Rx#:[id number] KCl 40 mEq Premix Inj 40 meq In 100 / 100 200 / 200 100 ml @ 25 mls/hr IV.SIG Q2H [facility] Rx#:[id number] Oral 500 / 500 600 / 600 Output: Stool 30 / 30 50 / 50 Urine Amount (Catheter) 800 / 800 650 / 650 Female External 0 / 0 650 / 650 Indwelling Urethral Catheter 800 / 800 Other: Date of Last Bowel Movement 05/14/18 - Constitutional no acute distress - Routine HEENT Exam Head: Present: normocephalic, atraumatic - Routine Respiratory Exam Absent: accessory muscle use - Routine Abdominal Exam Present: soft, normoactive bowel sounds. Absent: tenderness Comments: obese - Routine Skin Exam Present: dry, warm - Routine Neurological Exam Present: alert, oriented X3 - Urinary Catheter Management Indwelling Urethral Catheter Cath placed during this visit: yes, but has since been removed by the nurse Reason for continuing: Continue criteria not met Insertion date: 05/12/18 Insertion time: 15:00 Removal date: 05/14/18 Removal time: 17:28 Female External Cath placed during this visit: no <Isabelle Dixon - Last Filed: 05/15/18 12:37> Vital signs: Vital Signs 05/14/18 19:00 05/14/18 19:01 05/14/18 19:55 Temperature Pulse Rate 100 H 100 H Respiratory Rate 26 H 24 Blood Pressure 154/64 H Pulse Oximetry 81 L 77 L 98 05/14/18 20:00 05/14/18 20:34 05/14/18 21:00 Temperature 98.5 F Pulse Rate 99 H 67 92 H Respiratory Rate 21 16 23 Blood Pressure 153/102 H Pulse Oximetry 88 L 100 96 05/14/18 21:01 05/14/18 22:00 05/14/18 22:01 Temperature Pulse Rate 96 H 98 H 98 H Respiratory Rate 26 H 24 29 H Blood Pressure 162/68 H 159/69 H Pulse Oximetry 97 83 L 05/14/18 23:00 05/15/18 00:00 05/15/18 00:01 Temperature 99.2 F Pulse Rate 91 H 96 H 98 H Respiratory Rate 33 H 35 H 35 H Blood Pressure 147/62 H 146/65 H 146/65 H Pulse Oximetry 99 99 05/15/18 01:00 05/15/18 02:00 05/15/18 03:00 Temperature Pulse Rate 96 H 95 H 96 H Respiratory Rate 24 42 H 43 H Blood Pressure 143/68 H 148/65 H 145/63 H Pulse Oximetry 85 L 97 98 05/15/18 04:00 05/15/18 05:00 05/15/18 05:01 Temperature 98.9 F Pulse Rate 93 H 97 H 91 H Respiratory Rate 46 H 20 24 Blood Pressure 164/70 H 167/71 H Pulse Oximetry 97 93 L 91 L 05/15/18 06:00 05/15/18 06:01 05/15/18 06:53 Temperature Pulse Rate 96 H 97 H 92 H Respiratory Rate 25 H 39 H 27 H Blood Pressure 180/75 H 131/60 Pulse Oximetry 93 L 94 L 94 L 05/15/18 07:00 05/15/18 08:00 05/15/18 09:00 Temperature 98.0 F Pulse Rate 91 H 91 H 92 H Respiratory Rate 25 H 28 H 27 H Blood Pressure Pulse Oximetry 93 L 81 L 83 L 05/15/18 09:36 05/15/18 10:00 05/15/18 11:00 Temperature Pulse Rate 96 H 107 H 98 H Respiratory Rate 22 37 H 31 H Blood Pressure Pulse Oximetry 94 L 94 L 80 L 05/15/18 12:00 05/15/18 13:00 05/15/18 13:31 Temperature 98.2 F Pulse Rate 99 H 100 H 99 H Respiratory Rate 33 H 37 H 29 H Blood Pressure 153/68 H Pulse Oximetry 99 80 L 93 L 05/15/18 14:00 05/15/18 14:01 05/15/18 15:00 Temperature Pulse Rate 93 H 93 H 95 H Respiratory Rate 25 H 28 H 26 H Blood Pressure 140/63 145/64 H Pulse Oximetry 96 96 96 05/15/18 16:40 Temperature Pulse Rate 86 Respiratory Rate 18 Blood Pressure Pulse Oximetry Intake & Output 05/14/18 05/15/18 05/15/18 18:59 06:59 18:59 Intake Total 1300 / 1300 2000 / 2000 100 / 100 Output Total 830 / 830 700 / 700 Balance 470 / 470 1300 / 1300 100 / 100 Weight 116.5 kg Intake: IV 800 / 800 1400 / 1400 100 / 100 D5W Inj 1,000 ML @ 40 mls/hr IV 1000 / 1000 .CONT .Q24H [facility] Rx#:[id number] NS + KCl 40 mEq Inj 1,000 ML @ 400 / 400 100 mls/hr IV.CONT .Q10H [facility] Rx #:[id number] Zosyn 4.5 GM Premix 4.5 gm In 300 / 300 200 / 200 100 / 100 100 ml @ 200 mls/hr IV.SIG Q6H [facility] Rx#:[id number] KCl 40 mEq Premix Inj 40 meq In 100 / 100 200 / 200 100 ml @ 25 mls/hr IV.SIG Q2H [facility] Rx#:[id number] Oral 500 / 500 600 / 600 Output: Stool 30 / 30 50 / 50 Urine Amount (Catheter) 800 / 800 650 / 650 Female External 0 / 0 650 / 650 Indwelling Urethral Catheter 800 / 800 Other: Date of Last Bowel Movement 05/14/18 05/15/18 - Urinary Catheter Management Indwelling Urethral Catheter Cath placed during this visit: no Female External Cath placed during this visit: no <Ana Rudd - Last Filed: 05/15/18 18:14> Results - Labs CBC & Chem 7: 05/14/18 06:00 05/14/18 15:16 Laboratory Results - last 24 hr 05/14/18 15:16 Sodium 149 H Potassium 3.0 L Chloride 115 H Carbon Dioxide 26.2 Anion Gap 8 BUN 14 Creatinine 0.94 Estimated GFR 60 L Random Glucose 158 H Calcium 6.7 L* Prot Corrected Calcium 7.5 L Total Protein 5.4 L Microbiology 05/12/18 15:32 Blood - Line Aerobic Blood Culture - Preliminary No growth in 3 days 05/12/18 15:32 Blood - Line Anaerobic Blood Culture - Preliminary No growth in 3 days 05/12/18 15:25 Blood - Line Aerobic Blood Culture - Preliminary No growth in 3 days 05/12/18 15:25 Blood - Line Anaerobic Blood Culture - Preliminary No growth in 3 days 05/11/18 22:20 Blood - Peripheral Aerobic Blood Culture - Preliminary No growth in 4 days 05/11/18 22:20 Blood - Peripheral Anaerobic Blood Culture - Final QNS - See aerobic report. 05/11/18 19:45 Blood - Peripheral Aerobic Blood Culture - Preliminary No growth in 4 days 05/11/18 19:45 Blood - Peripheral Anaerobic Blood Culture - Final QNS - See aerobic report. - Imaging Impressions Chest X-Ray 05/15/18 06:00 CONCLUSION: Clear lungs. <Isabelle Dixon - Last Filed: 05/15/18 12:37> - Labs CBC & Chem 7: 05/15/18 13:39 05/15/18 13:39 Laboratory Results - last 24 hr 05/15/18 05/15/18 05/15/18 13:39 13:39 13:39 WBC 3.7 L RBC 3.33 L Hgb 10.1 L Hct 30.7 L MCV 92.1 MCH 30.4 MCHC 33.0 RDW 22.1 H Plt Count 100 L MPV 10.2 Prelim Diff (Auto) Fish Frog Or Oyster Farmer WBC Differential Manual diff final Seg Neuts % (Manual) 54 Band Neuts % (Manual) 1 Lymphocytes % (Manual) 27 Monocytes % (Manual) 7 Eosinophils % (Manual) 2 Metamyelocytes % (Man) 4 H Myelocytes % (Man) 1 H Promyelocytes % (Man) 4 H Abs Neuts (Manual) 2.4 Nucleated RBCs/100 WBC 29 H Differential Comment . Toxic Granulation 2+ H Toxic Vacuolation Present H Platelet Estimate Low L Platelet Morphology Normal Ovalocytes 1+ H Acanthocytes (Spur) Occ H APTT 28.9 Sodium 145 Potassium 3.2 L Chloride 112 H Carbon Dioxide 23.3 Anion Gap 10 BUN 7 Creatinine 0.79 Estimated GFR 73 L Random Glucose 88 Calcium 6.8 L* Prot Corrected Calcium 7.8 L Phosphorus 0.7 L Magnesium 1.9 Total Bilirubin 0.6 AST 22 ALT 36 Alkaline Phosphatase 121 H Total Protein 5.2 L Albumin 1.8 L Microbiology 05/12/18 15:32 Blood - Line Aerobic Blood Culture - Preliminary No growth in 3 days 05/12/18 15:32 Blood - Line Anaerobic Blood Culture - Preliminary No growth in 3 days 05/12/18 15:25 Blood - Line Aerobic Blood Culture - Preliminary No growth in 3 days 05/12/18 15:25 Blood - Line Anaerobic Blood Culture - Preliminary No growth in 3 days 05/11/18 22:20 Blood - Peripheral Aerobic Blood Culture - Preliminary No growth in 4 days 05/11/18 22:20 Blood - Peripheral Anaerobic Blood Culture - Final QNS - See aerobic report. 05/11/18 19:45 Blood - Peripheral Aerobic Blood Culture - Preliminary No growth in 4 days 05/11/18 19:45 Blood - Peripheral Anaerobic Blood Culture - Final QNS - See aerobic report. - Imaging Impressions Chest X-Ray 05/15/18 06:00 CONCLUSION: Clear lungs. <Ana Rudd - Last Filed: 05/15/18 18:14> Assessment and Plan - Plan Assessment: - C. Diff colitis, epid positive in setting of immunocompromise Pt presented with nausea, vomiting, diarrhea. Pt started on Questran yesterday, states diarrhea seems to be improving some. Rectal bag with liquid green stool. Pt denies any continued nausea, vomiting, abdominal pain. On Dificid, oral Vanco, and IV Flagyl- ID following. Pt afebrile CT abdomen and pelvis WO IV contrast --> Questionable mild mural thickening of the colon that could indicate a mild colitis, especially transverse colon. - Metastatic breast cancer- oncology following (05/14) Pt reports improvement in diarrhea today, still with liquid green stool in rectal bag. Afebrile. Abdominal exam benign, pt denies any continued nausea, vomiting, abdominal pain. States not much of an appetite ID following (05/15) Pt denies any nausea, vomiting, abdominal pain. Continues to have liquid green stool, collected in rectal bag. Tolerating liquid diet. ID following. Afebrile Plan: Continue IV Flagyl Continue oral Vanc Continue Dificid Cholestyramine Monitor output Liquid diet- advance as tolerated Not much to add from a GI perspective- ID following- our service will sign off, please reconsult as needed Have pt follow up with GI after DC Pt has been seen and examined by myself and Dr. Rudd and this note is written on her behalf <Isabelle Dixon - Last Filed: 05/15/18 12:37> - Attending Attestation seen, examined agree with above <Ana Rudd - Last Filed: 05/15/18 18:14>
--- NOTE | 2018-05-15 13:25 | P.PNONC ---
Subjective Interval history: Afebrile Patient states she is feeling confused at times with not knowing what time it is Rectal bag output decreased Denies any acute complaints Per [employer] they are unable to draw blood out of [id number] Objective Vital Signs/Intake & Output: Vital Signs 05/14/18 14:00 05/14/18 15:00 05/14/18 15:13 Temperature Pulse Rate 98 H 94 H 96 H Respiratory Rate 30 H 33 H 16 Blood Pressure 149/66 H 153/65 H Pulse Oximetry 99 99 05/14/18 16:00 05/14/18 17:00 05/14/18 18:00 Temperature Pulse Rate 101 H 101 H 106 H Respiratory Rate 24 33 H 27 H Blood Pressure 142/67 H 157/80 H Pulse Oximetry 70 L 89 L 99 05/14/18 18:01 05/14/18 19:55 05/14/18 20:00 Temperature 98 F 98.5 F Pulse Rate 103 H 93 H Respiratory Rate 31 H 30 H Blood Pressure 165/72 H 153/102 H Pulse Oximetry 99 98 95 05/14/18 20:34 05/15/18 00:00 05/15/18 04:00 Temperature 99.2 F 98.9 F Pulse Rate 67 96 H 93 H Respiratory Rate 16 28 H 25 H Blood Pressure 146/65 H 164/74 H Pulse Oximetry 100 99 97 05/15/18 08:00 05/15/18 09:36 Temperature 98.0 F Pulse Rate 96 H Respiratory Rate 22 Blood Pressure Pulse Oximetry 94 L Intake & Output 05/14/18 05/15/18 05/15/18 18:59 06:59 18:59 Intake Total 1300 / 1300 2000 / 2000 Output Total 830 / 830 700 / 700 Balance 470 / 470 1300 / 1300 Weight 256 lb 13.416 oz Intake: IV 800 / 800 1400 / 1400 D5W Inj 1,000 ML @ 40 mls/hr IV 1000 / 1000 .CONT .Q24H [facility] Rx#:[id number] NS + KCl 40 mEq Inj 1,000 ML @ 400 / 400 100 mls/hr IV.CONT .Q10H [facility] Rx #:[id number] Zosyn 4.5 GM Premix 4.5 gm In 300 / 300 200 / 200 100 ml @ 200 mls/hr IV.SIG Q6H [facility] Rx#:[id number] KCl 40 mEq Premix Inj 40 meq In 100 / 100 200 / 200 100 ml @ 25 mls/hr IV.SIG Q2H PRN Rx#:[id number] Oral 500 / 500 600 / 600 Output: Stool 30 / 30 50 / 50 Urine Amount (Catheter) 800 / 800 650 / 650 Female External 0 / 0 650 / 650 Indwelling Urethral Catheter 800 / 800 Other: Date of Last Bowel Movement 05/14/18 Result Diagrams: 05/14/18 06:00 05/14/18 15:16 Laboratory Results: Laboratory Results - last 24 hr 05/14/18 15:16 Sodium 149 H Potassium 3.0 L Chloride 115 H Carbon Dioxide 26.2 Anion Gap 8 BUN 14 Creatinine 0.94 Estimated GFR 60 L Random Glucose 158 H Calcium 6.7 L* Prot Corrected Calcium 7.5 L Total Protein 5.4 L Culture Results: Microbiology 05/12/18 15:32 Aerobic Blood Culture - Preliminary Blood - Line No growth in 3 days Anaerobic Blood Culture - Preliminary No growth in 3 days 05/12/18 15:25 Aerobic Blood Culture - Preliminary Blood - Line No growth in 3 days Anaerobic Blood Culture - Preliminary No growth in 3 days 05/11/18 22:20 Aerobic Blood Culture - Preliminary Blood - Peripheral No growth in 4 days Anaerobic Blood Culture - Final QNS - See aerobic report. 05/11/18 19:45 Aerobic Blood Culture - Preliminary Blood - Peripheral No growth in 4 days Anaerobic Blood Culture - Final QNS - See aerobic report. 05/12/18 16:00 Streptococcus pneumoniae Antigen (M - Final Urine - Catheterized Urine Presumptive negative for streptococcus pneumoniae antigen, suggesting no current or recent infection. Infection due to Streptococcus pneumoniae cannot be ruled out since the antigen present in the sample may be below the detection limit of the test. 05/12/18 16:00 Legionella Antigen - Final Urine - Catheterized Urine Presumptive negative for Legionella pneumophila serogroup 1 antigen in urine, suggesting no recent or recurrent infection. Infection due to Legionella cannot be ruled out since other serogroups and species may cause disease, antigen may not be present in urine in early infection, and the level of antigen present in the urine may be below the detection limit of the test. Imaging Studies: Impressions Chest X-Ray 05/15/18 06:00 CONCLUSION: Clear lungs. Medications: Active Medications Generic Name Dose Route Start Last Admin Trade Name Freq PRN Reason Stop Dose Admin Acetaminophen 650 mg 05/11/18 15:43 05/12/18 21:49 Tylenol PO 650 mg Q4H PRN Administration Temp > 100.4 Cholestyramine Resin 4 gm 05/13/18 21:00 05/15/18 09:18 Questran 4 Gm Pkt PO 4 gm BID [facility]O Administration Diltiazem HCl 30 mg 05/12/18 14:00 05/12/18 17:56 Cardizem PO Not Given Q8HR [facility] Enoxaparin Sodium 40 mg 05/12/18 15:00 05/14/18 14:35 Lovenox Inj SQ 40 mg Q24H [facility] Administration Fidaxomicin 200 mg 05/12/18 14:30 05/15/18 09:19 Dificid PO 200 mg BID [facility] Administration Piperacillin/Tazobactam/Dextrose 4.5 gm in 100 mls @ 200 mls/hr 05/11/18 22: 00 05/15/18 09:19 Zosyn 4.5 Gm Premix IV.SIG 200 mls/hr Q6H [facility] Administration Potassium Chloride 40 meq in 100 mls @ 25 mls/hr 05/13/18 09:33 05/15/18 03: 13 Kcl 40 Meq Premix Inj IV.SIG Infused Q2H PRN Infusion For Potassium 2.8 - 3.2 mEq/L Lorazepam 1 mg 05/11/18 21:00 05/12/18 13:51 Ativan PO Not Given BID [facility] Metoprolol Tartrate 25 mg 05/12/18 09:00 05/12/18 09:23 Lopressor PO Not Given DAILY [facility] Ondansetron HCl 8 mg 05/11/18 14:08 05/12/18 09:24 Zofran Inj IV.PUSH 8 mg Q8H PRN Administration VOMITING Pramipexole Dihydrochloride 1 mg 05/11/18 21:00 05/14/18 20:08 Mirapex PO 1 mg HS [facility] Administration Sodium Chloride 2 ml 05/11/18 09:37 05/11/18 14:27 Ns Flush IV.FLUSH 2 ml PRN PRN Administration FLUSH AFTER USING IV ACCESS Vancomycin HCl 500 mg 05/12/18 18:00 05/15/18 09:18 Vancomycin Po PO 500 mg QID [facility] Administration Objective Remarks: GENERAL: Obese older female resting in bed in no obvious distress SKIN: Warm and dry. HEAD: Normocephalic. EYES: No scleral icterus. No injection or drainage. NECK: Supple, trachea midline. No JVD or lymphadenopathy. CARDIOVASCULAR: Regular rate and rhythm without murmurs. RESPIRATORY: Clear anteriorly. Breathing unlabored at rest. GASTROINTESTINAL: Abdomen soft and nontender. EXTREMITIES: SCDs to bilateral lower extremities. MUSCULOSKELETAL: Adequate muscle tone. NEUROLOGICAL: Lethargic. Moving all extremities. No obvious focal deficit. Assessment/Plan - Plan Ms. Sellers is a 68-year-old female with a diagnosis of metastatic breast carcinoma, she has extensive skeletal metastases and had been on palliative systemic therapy with single agent Taxol. Over the past 3 weeks she had been hospitalized and then discharged to a alf facility, she had been treated in the recent past with levofloxacin for management of a urinary tract infection. She subsequently developed diarrhea and subsequent sepsis. She presented to this hospital with confusion, lethargy and difficulty breathing. She was also noted to be in acute renal failure. Over the past 48 hours she has been aggressively resuscitated and has been treated with appropriate antibiotics with improvement in her cognition, improved hemodynamic parameters and improve renal function. Plan: 1. Severe sepsis with septic shock and lactic acidosis: Secondary to C. difficile colitis. Patient remains on treatment fiadxomycin and oral Vancomycin. She is also on IV Zosyn. 2. Metastatic breast cancer: Treatment will remain on hold until she has recovered from this acute life threatening episode. 3. Cytopenias: Myelosuppression somewhat attributed to recent chemotherapy with Taxol. Awaiting CBC today. Will possibly start her on Neupogen if she is neutropenic on today's labs in the clinical picture of sepsis. 4. Once she is more stable will obtain port study
[2018-05-15 14:08] LABS: Hematocrit 30.7 % (35.0-46.0); Hemoglobin 10.1 gm/dL (11.6-15.3); Mean Corpuscular Hemoglobin 30.4 pg (27.0-34.0); Mean Corpuscular Volume 92.1 fL (80.0-100.0); Mean Platelet Volume 10.2 fL (7.0-11.0); Platelet Count 100 th/mm3 (150-450); Red Blood Count 3.33 mil/mm3 (4.00-5.30); Red Cell Distribution Width 22.1 % (11.6-17.2); White Blood Count 3.7 th/mm3 (4.0-11.0)
[2018-05-15 14:09] LABS: Albumin 1.8 g/dL (3.4-5.0); Calcium 6.8 mg/dL (8.5-10.1); Carbon Dioxide 23.3 meq/L (21.0-32.0); Magnesium 1.9 mg/dL (1.5-2.5); Phosphorus 0.7 mg/dL (2.5-4.9); Potassium 3.2 meq/L (3.5-5.1)
[2018-05-15 14:12] LABS: Total Protein 5.2 g/dL (6.4-8.2)
[2018-05-15 15:01] LABS: Eosinophils 2 % (0-4); Lymphocytes 27 % (9-44); Metamyelocytes 4 % (0-1); Monocytes 7 % (0-8); Myelocytes 1 % (0-0); Promyelocyte 4 % (0-0); Tallied Nucleated RBC 29 (0-0)
[2018-05-15 15:02] LABS: Acanthocytes Occ; Ovalocytes 1+; Toxic Granulation 2+; Toxic Vacuolation Present
[2018-05-15 15:03] LABS: Platelet Morphology Normal (Normal)
--- NOTE | 2018-05-15 15:15 | P.PNID ---
Subjective Remarks: pt is doing OK Off pressors BP stale afebrile WBC improved Antibiotics: vanco dificid Allergies/Adverse Reactions: Allergies hydromorphone [From Dilaudid] Adverse Reaction (Intermediate, Verified 05/11/18 10:38) Dizziness Objective Vital Signs 05/14/18 15:13 05/14/18 16:00 05/14/18 17:00 Temperature Pulse Rate 96 H 101 H 101 H Respiratory Rate 16 24 33 H Blood Pressure 142/67 H 157/80 H Pulse Oximetry 70 L 89 L 05/14/18 18:00 05/14/18 18:01 05/14/18 19:55 Temperature 98 F Pulse Rate 106 H 103 H Respiratory Rate 27 H 31 H Blood Pressure 165/72 H Pulse Oximetry 99 99 98 05/14/18 20:00 05/14/18 20:34 05/15/18 00:00 Temperature 98.5 F 99.2 F Pulse Rate 93 H 67 96 H Respiratory Rate 30 H 16 28 H Blood Pressure 153/102 H 146/65 H Pulse Oximetry 95 100 99 05/15/18 04:00 05/15/18 08:00 05/15/18 09:36 Temperature 98.9 F 98.0 F Pulse Rate 93 H 96 H Respiratory Rate 25 H 22 Blood Pressure 164/74 H Pulse Oximetry 97 94 L 05/15/18 12:00 Temperature 98.2 F Pulse Rate Respiratory Rate Blood Pressure Pulse Oximetry Intake & Output 05/14/18 05/15/18 05/15/18 18:59 06:59 18:59 Intake Total 1300 / 1300 2000 / 2000 Output Total 830 / 830 700 / 700 Balance 470 / 470 1300 / 1300 Weight 116.5 kg Intake: IV 800 / 800 1400 / 1400 D5W Inj 1,000 ML @ 40 mls/hr IV 1000 / 1000 .CONT .Q24H [facility] Rx#:[id number] NS + KCl 40 mEq Inj 1,000 ML @ 400 / 400 100 mls/hr IV.CONT .Q10H [facility] Rx #:[id number] Zosyn 4.5 GM Premix 4.5 gm In 300 / 300 200 / 200 100 ml @ 200 mls/hr IV.SIG Q6H [facility] Rx#:[id number] KCl 40 mEq Premix Inj 40 meq In 100 / 100 200 / 200 100 ml @ 25 mls/hr IV.SIG Q2H PRN Rx#:[id number] Oral 500 / 500 600 / 600 Output: Stool 30 / 30 50 / 50 Urine Amount (Catheter) 800 / 800 650 / 650 Female External 0 / 0 650 / 650 Indwelling Urethral Catheter 800 / 800 Other: Date of Last Bowel Movement 05/14/18 05/15/18 05/12/18 15:32 Blood - Line Aerobic Blood Culture - Preliminary No growth in 3 days 05/12/18 15:32 Blood - Line Anaerobic Blood Culture - Preliminary No growth in 3 days 05/12/18 15:25 Blood - Line Aerobic Blood Culture - Preliminary No growth in 3 days 05/12/18 15:25 Blood - Line Anaerobic Blood Culture - Preliminary No growth in 3 days 05/11/18 22:20 Blood - Peripheral Aerobic Blood Culture - Preliminary No growth in 4 days 05/11/18 22:20 Blood - Peripheral Anaerobic Blood Culture - Final QNS - See aerobic report. 05/11/18 19:45 Blood - Peripheral Aerobic Blood Culture - Preliminary No growth in 4 days 05/11/18 19:45 Blood - Peripheral Anaerobic Blood Culture - Final QNS - See aerobic report. 05/12/18 16:00 Urine - Catheterized Urine Streptococcus pneumoniae Antigen ( M - Final Presumptive negative for streptococcus pneumoniae antigen, suggesting no current or recent infection. Infection due to Streptococcus pneumoniae cannot be ruled out since the antigen present in the sample may be below the detection limit of the test. 05/12/18 16:00 Urine - Catheterized Urine Legionella Antigen - Final Presumptive negative for Legionella pneumophila serogroup 1 antigen in urine, suggesting no recent or recurrent infection. Infection due to Legionella cannot be ruled out since other serogroups and species may cause disease, antigen may not be present in urine in early infection, and the level of antigen present in the urine may be below the detection limit of the test. Lab - Hematology Results 05/14/18 05/15/18 06:00 13:39 WBC 2.8 L 3.7 L RBC 3.49 L 3.33 L Hgb 10.5 L 10.1 L Hct 31.4 L 30.7 L MCV 90.0 92.1 MCH 30.0 30.4 MCHC 33.3 33.0 RDW 22.4 H 22.1 H Plt Count 128 L 100 L MPV 10.1 10.2 Prelim Diff (Auto) Cloth Wire Weaver WBC Differential Manual diff final Seg Neuts % (Manual) 54 Band Neuts % (Manual) 1 Lymphocytes % (Manual) 27 Monocytes % (Manual) 7 Eosinophils % (Manual) 2 Metamyelocytes % (Man) 4 H Myelocytes % (Man) 1 H Promyelocytes % (Man) 4 H Abs Neuts (Manual) 2.4 Nucleated RBCs/100 WBC 29 H Differential Comment . Toxic Granulation 2+ H Toxic Vacuolation Present H Platelet Estimate Low L Platelet Morphology Normal Ovalocytes 1+ H Acanthocytes (Spur) Occ H Lab - Chemistry Results 05/13/18 05/13/18 05/13/18 14:20 14:20 21:40 Sodium 150 H Potassium 3.0 L Chloride 113 H Carbon Dioxide 27.4 Anion Gap 10 BUN 29 H Creatinine 1.52 H Estimated GFR 34 L POC Glucose 110 Random Glucose 116 H Lactic Acid 3.2 H Calcium 7.5 L D Prot Corrected Calcium Phosphorus Magnesium Total Bilirubin 1.2 H AST 38 H ALT 36 Alkaline Phosphatase 89 Total Protein 5.5 L Albumin 1.9 L 05/14/18 05/14/18 05/14/18 06:00 08:07 15:16 Sodium 152 H 149 H Potassium 3.3 L 3.0 L Chloride 118 H 115 H Carbon Dioxide 25.5 26.2 Anion Gap 9 8 BUN 18 14 Creatinine 0.95 0.94 Estimated GFR 59 L 60 L POC Glucose Random Glucose 110 H 158 H Lactic Acid 1.2 Calcium 7.1 L* 6.7 L* Prot Corrected Calcium 8.0 L D 7.5 L Phosphorus Magnesium 2.1 Total Bilirubin 0.8 AST 32 ALT 36 Alkaline Phosphatase 103 Total Protein 5.4 L 5.4 L Albumin 1.8 L 05/15/18 13:39 Sodium 145 Potassium 3.2 L Chloride 112 H Carbon Dioxide 23.3 Anion Gap 10 BUN 7 Creatinine 0.79 Estimated GFR 73 L POC Glucose Random Glucose 88 Lactic Acid Calcium 6.8 L* Prot Corrected Calcium 7.8 L Phosphorus 0.7 L Magnesium 1.9 Total Bilirubin 0.6 AST 22 ALT 36 Alkaline Phosphatase 121 H Total Protein 5.2 L Albumin 1.8 L Imaging: ITS Impressions Chest CT 05/12/18 00:00 CONCLUSION: 1. Confluent opacity in the right upper lobe that is new when compared to the prior study 2016. Morphology would favor scarring. There is mild associated bronchiectasis. More acute consolidation is also in the differential diagnosis. Neoplasm would be less likely but is in the differential diagnosis. Recommend a follow-up noncontrast chest CT confirm stability or resolution in 3 months. 2. Minimal nonspecific groundglass opacity in the left upper lobe. The prominent bilateral groundglass opacity seen on prior study of 2017 is not seen on today's study. Head CT 05/12/18 00:00 CONCLUSION: 1. No acute intracranial abnormalities. Stable chronic white matter ischemic changes. . Venous Doppler Study 05/12/18 00:00 CONCLUSION: No evidence of lower extremity DVT on the right or left. Abdomen/Pelvis CT 05/12/18 15:00 CONCLUSION: 1. Questionable mild mural thickening of the colon that could indicate a mild colitis, especially transverse colon. 2. Heterogeneous renal parenchymal enhancement not as optimally evaluated as on prior study. Cannot exclude pyelonephritis. 3. Bhagat catheter in decompressed bladder. 4. Hiatal hernia. 5. Moderate coronary calcifications. Abdomen X-Ray 05/12/18 21:10 CONCLUSION: Nasogastric tube in the stomach with the tip at the gastroesophageal junction. Chest X-Ray 05/15/18 06:00 CONCLUSION: Clear lungs. Physical Exam: GENERAL: NAD SKIN: Warm and dry. HEAD: Atraumatic. Normocephalic. EYES: Pupils equal and round. No scleral icterus. No injection or drainage. ENT: No nasal bleeding or discharge. Mucous membranes pink and moist. NECK: Trachea midline. No JVD. CARDIOVASCULAR: Regular rate and rhythm. RESPIRATORY: No accessory muscle use. Clear to auscultation. Breath sounds equal bilaterally. GASTROINTESTINAL: Abdomen soft, non-tender, moderately distended. Hepatic and splenic margins not palpable. MUSCULOSKELETAL: Extremities without clubbing, cyanosis, or edema. No obvious deformities. well prefused hands and feet NEUROLOGICAL: Awake and alert. No obvious cranial nerve deficits. Motor grossly within normal limits. Five out of 5 muscle strength in the arms and legs. Normal speech. PSYCHIATRIC: Appropriate mood and affect; insight and judgment normal. Assessment and Plan - Plan Metastatic breadst Ca sp chemo Mildly cytopenic, liklely suppressed from chemo Hypervirulent 027 C.diff Severe sepsis: likely C/diff ? R side pyelo, though UA, clin presntation not cw pyelo ARF - imnproved with IVF resuscitation cont po vanco cont Dificid No IV flagyl for now will keep on zosyn 2/2 PNA will get sputum clx veronica RN
[2018-05-15] MEDS ORDERED: Gelatin 12 MM/7 MM Topical Foam TOPICAL ONE ×2 (16:01→17:02)
[2018-05-15] MEDS: Enoxaparin Inj 40 MG/0.4 ML Syringe SQ SCH (16:46)
[2018-05-16] MEDS: Piperacil/Tazo 4.5 GM Premix 4.5 GM/100 ML BAG IV.SIG SCH ×4 (04:00→21:07)
--- NOTE | 2018-05-16 05:39 | XR ---
EXAM DATE: 05/16/2018 4:59 AM EDT AGE/SEX: 68 years / Female INDICATIONS: Shortness of breath. CLINICAL DATA: This is the patient's subsequent encounter. Patient reports that signs and symptoms h ave been present for 1 week and indicates a pain score of 0/10. MEDICAL/SURGICAL HISTORY: . Carcinoma, breast. Metastatic disease. . Mastectomy, left. Total k nee replacement, left, Total knee replacement, right, ORIF left femur. COMPARISON: [facility] [place], CHEST 1V SINGLE AP, 05/15/2018. [facility] [place], CT CHEST W/O CONTRAST, 05/12/2018. . FINDINGS: There is cardiomegaly, right upper lobe consolidative opacity, and interval development of left lower lobe airspace disease. Enlargement of left pulmonary artery identified. Osseous structures are intac t. Right-sided portacatheter is present. CONCLUSION: Bilateral parenchymal infiltrates. Electronically signed by: Schuyler Dahl MD 05/16/2018 5:38 AM EDT
[2018-05-16 06:16] LABS: Hematocrit 30.3 % (35.0-46.0); Mean Corpuscular Hemoglobin 30.6 pg (27.0-34.0); Mean Corpuscular Volume 92.6 fL (80.0-100.0); Mean Platelet Volume 10.2 fL (7.0-11.0); Platelet Count 98 th/mm3 (150-450); Red Blood Count 3.27 mil/mm3 (4.00-5.30); Red Cell Distribution Width 22.5 % (11.6-17.2); White Blood Count 4.6 th/mm3 (4.0-11.0)
[2018-05-16 06:46] LABS: Alanine Aminotransferase 34 U/L (10-53); Albumin 1.8 g/dL (3.4-5.0); Alkaline Phosphatase 121 U/L (45-117); Anion Gap 10 meq/L (5-15); Aspartate Aminotransferase 22 U/L (15-37); Blood Urea Nitrogen 5 mg/dL (7-18); Calcium 6.5 mg/dL (8.5-10.1); Chloride 111 meq/L (98-107); Glomerular Filtration Rate Greater Than 89 mL/min (>89); Glucose,Random 55 mg/dL (74-106); Magnesium 1.8 mg/dL (1.5-2.5); Phosphorus 1.6 mg/dL (2.5-4.9); Potassium 3.5 meq/L (3.5-5.1); Sodium 145 meq/L (136-145); Total Protein 5.2 g/dL (6.4-8.2)
[2018-05-16 08:09] LABS: Lymphocytes 8 % (9-44); Metamyelocytes 11 % (0-1); Monocytes 6 % (0-8); Myelocytes 4 % (0-0); Promyelocyte 2 % (0-0); Tallied Nucleated RBC 11 (0-0); Toxic Granulation 2+
[2018-05-16 08:10] LABS: Ovalocytes 1+
[2018-05-16] MEDS ORDERED: Dextrose 50% in Water 50 ML Vial IV.PUSH PRN (09:42)
[2018-05-16] MEDS ORDERED: Potassium Phosphate Inj 30 MMOL in Sodium Chlor 0.9% Inj 250 ML IV.SIG ONE (10:00)
[2018-05-16] MEDS ORDERED: Calcium Chloride Inj 1 GM in Sodium Chlor 0.9% Inj 100 ML IV.SIG ONE (10:00)
[2018-05-16] MEDS: Dextrose 50% in Water 50 ML Vial IV.PUSH PRN ×2 (10:25→17:13)
--- NOTE | 2018-05-16 11:21 | P.PNFP ---
Subjective Interval history: Patient seen and examined bedside this morning. She continues to be more alert every day that we see her. Today she states that she has not had any nausea or vomiting and is drinking fluids okay. She is not have any pain anywhere. Denies any chest pain or shortness of breath. Denies any dizziness. She does not feel any increased confusion today. Results - Labs Result diagrams: 05/16/18 04:26 05/16/18 04:26 Abnormal lab results 05/15/18 05/15/18 05/16/18 Range/Units 13:39 13:39 04:26 WBC 3.7 L (4.0-11.0) th/mm3 RBC 3.33 L 3.27 L (4.00-5.30) mil/mm3 Hgb 10.1 L 10.0 L (11.6-15.3) gm/dL Hct 30.7 L 30.3 L (35.0-46.0) % RDW 22.1 H 22.5 H (11.6-17.2) % Plt Count 100 L 98 L (150-450) th/mm3 Lymphocytes % (Manual) 8 L (9-44) % Metamyelocytes % (Man) 4 H 11 H (0-1) % Myelocytes % (Man) 1 H 4 H (0-0) % Promyelocytes % (Man) 4 H 2 H (0-0) % Nucleated RBCs/100 WBC 29 H 11 H (0-0) /100 WBC Toxic Granulation 2+ H 2+ H (None) Toxic Vacuolation Present H (None) Platelet Estimate Low L Low L (Normal) Platelet Morphology Enlarged H (Normal) Ovalocytes 1+ H 1+ H (None) Acanthocytes (Spur) Occ H (None) Keratocytes Occ H (None) Potassium 3.2 L (3.5-5.1) meq/L Chloride 112 H (98-107) meq/L BUN (7-18) mg/dL Estimated GFR 73 L (>89) mL/min POC Glucose (68-110) mg/dl Random Glucose (74-106) mg/dL Calcium 6.8 L* (8.5-10.1) mg/dL Prot Corrected Calcium 7.8 L (8.5-10.1) mg/dL Phosphorus 0.7 L (2.5-4.9) mg/dL Alkaline Phosphatase 121 H (45-117) U/L Total Protein 5.2 L (6.4-8.2) g/dL Albumin 1.8 L (3.4-5.0) g/dL 18 05/16/18 Range/Units 04:26 09:32 WBC (4.0-11.0) th/mm3 RBC (4.00-5.30) mil/mm3 Hgb (11.6-15.3) gm/dL Hct (35.0-46.0) % RDW (11.6-17.2) % Plt Count (150-450) th/mm3 Lymphocytes % (Manual) (9-44) % Metamyelocytes % (Man) (0-1) % Myelocytes % (Man) (0-0) % Promyelocytes % (Man) (0-0) % Nucleated RBCs/100 WBC (0-0) /100 WBC Toxic Granulation (None) Toxic Vacuolation (None) Platelet Estimate (Normal) Platelet Morphology (Normal) Ovalocytes (None) Acanthocytes (Spur) (None) Keratocytes (None) Potassium (3.5-5.1) meq/L Chloride 111 H (98-107) meq/L BUN 5 L (7-18) mg/dL Estimated GFR (>89) mL/min POC Glucose 48 L* (68-110) mg/dl Random Glucose 55 L (74-106) mg/dL Calcium 6.5 L* (8.5-10.1) mg/dL Prot Corrected Calcium 7.4 L* (8.5-10.1) mg/dL Phosphorus 1.6 L (2.5-4.9) mg/dL Alkaline Phosphatase 121 H (45-117) U/L Total Protein 5.2 L (6.4-8.2) g/dL Albumin 1.8 L (3.4-5.0) g/dL Short CBC 18 05/16/18 Range/Units 13:39 04:26 WBC 3.7 L 4.6 (4.0-11.0) th/mm3 Hgb 10.1 L 10.0 L (11.6-15.3) gm/dL Hct 30.7 L 30.3 L (35.0-46.0) % Plt Count 100 L 98 L (150-450) th/mm3 BMP 05/15/18 05/16/18 13:39 04:26 Sodium 145 145 Potassium 3.2 L 3.5 Chloride 112 H 111 H Carbon Dioxide 23.3 24.0 BUN 7 5 L Creatinine 0.79 0.64 Calcium 6.8 L* 6.5 L* Liver Function 05/15/18 05/16/18 Range/Units 13:39 04:26 Total Bilirubin 0.6 0.8 (0.2-1.0) mg/dL AST 22 22 (15-37) U/L ALT 36 34 (10-53) U/L Alkaline Phosphatase 121 H 121 H (45-117) U/L Albumin 1.8 L 1.8 L (3.4-5.0) g/dL - Imaging Impressions Chest X-Ray 05/16/18 06:00 CONCLUSION: Bilateral parenchymal infiltrates. Physical Exam Vital signs: Vital Signs 05/15/18 12:00 05/15/18 13:00 05/15/18 13:31 Temperature 98.2 F Pulse Rate 99 H 100 H 99 H Respiratory Rate 33 H 37 H 29 H Blood Pressure 153/68 H Pulse Oximetry 99 80 L 93 L 05/15/18 14:00 05/15/18 14:01 05/15/18 15:00 Temperature Pulse Rate 93 H 93 H 95 H Respiratory Rate 25 H 28 H 26 H Blood Pressure 140/63 145/64 H Pulse Oximetry 96 96 96 05/15/18 16:00 05/15/18 16:40 05/15/18 20:00 Temperature 98.0 F 98.8 F Pulse Rate 113 H 86 99 H Respiratory Rate 18 33 H Blood Pressure 141/69 H Pulse Oximetry 98 05/15/18 20:19 05/16/18 00:00 05/16/18 00:24 Temperature 99.0 F Pulse Rate 89 96 H 96 H Respiratory Rate 20 28 H 18 Blood Pressure 156/61 H Pulse Oximetry 96 05/16/18 04:00 05/16/18 04:07 05/16/18 07:00 Temperature 98.6 F Pulse Rate 92 H 91 H 93 H Respiratory Rate 30 H 18 18 Blood Pressure 131/66 Pulse Oximetry 05/16/18 08:00 Temperature Pulse Rate Respiratory Rate Blood Pressure Pulse Oximetry 98 Intake & Output 05/15/18 05/16/18 05/16/18 18:59 06:59 18:59 Intake Total 650 / 650 1610 / 1610 Output Total 800 / 800 1000 / 1000 Balance -150 / -150 610 / 610 Weight 117.5 kg Intake: IV 200 / 200 1460 / 1460 Zosyn 4.5 GM Premix 4.5 gm In 200 / 200 200 / 200 100 ml @ 200 mls/hr IV.SIG Q6H [facility] Rx#:[id number] Potassium Phosphate Inj 30 MMOL 260 / 260 In NS Inj 250 ML @ 42 mls/hr IV.SIG UNSCH PRN Rx#:[id number] Oral 450 / 450 150 / 150 Output: Stool 150 / 150 100 / 100 Urine Amount (Catheter) 650 / 650 900 / 900 Female External 650 / 650 900 / 900 Other: Date of Last Bowel Movement 05/15/18 05/15/18 # Incontinent Bowel Movements 2 - Constitutional no acute distress - Routine Respiratory Exam Present: CTA bilaterally. Absent: accessory muscle use, decreased breath sounds - Routine Cardiovascular Exam Present: RRR, S1, S2. Absent: murmur - Routine Abdominal Exam Present: soft, normoactive bowel sounds. Absent: tenderness, guarding - Routine Extremities Exam Present: pulses intact. Absent: cyanosis, clubbing, edema - Routine Neurological Exam Present: alert, oriented X3, CN II-XII intact - Urinary Catheter Management Indwelling Urethral Catheter Cath placed during this visit: yes, but has since been removed by the nurse Reason for continuing: Continue criteria not met Insertion date: 05/12/18 Insertion time: 15:00 Removal date: 05/14/18 Removal time: 17:28 Female External Cath placed during this visit: no Assessment and Plan - Assessment (1) Hypoglycemia Code(s): E16.2 - Hypoglycemia, unspecified Status: Acute Plan: Glucose 48 today, asymptomatic Baseline 117 on admission D5 administered (2) Cytopenia Code(s): D75.9 - Disease of blood and blood-forming organs, unspecified Status : Acute Plan: Myelosuppression attributed to recent chemotherapy with Taxol, continue to follow-up CBC -Oncology following; may start on Neupogen if neutropenic on consistent labs, will get port study when more stable Follow-up CBC today (3) SIRS (systemic inflammatory response syndrome) Code(s): R65.10 - Systemic inflammatory response syndrome (SIRS) of non- infectious origin without acute organ dysfunction Status: Acute Plan: Patient's mental status is improving, HR 83, RR 18, good perfusion -Clinical improvement and vital signs stable, NG Tube removed On 05/12: Signs of severe sepsis with altered mental status, tachycardia, hypotension, skin mottling Transferred to ICU on 05/12 at 1400, with NG tube placement and GI management of severe resistant C. difficile. Possible source of sepsis includes pneumonia, C. difficile colitis, bacteremia IV Vanc, Zosyn, and PO Flagyl (05/11-05/12) Per consult with ID, GI and Critical Care MD, Continue on IV Zosyn, with PO Vanc and PO Dificid (05/12 - ) Chest x-ray 05/13-05/14 shows right upper lobe opacity, CXR clear of opacity today Repeat CT abdomen showed no change, possible pyelonephritis (ID dw with rads and likely not pyelo), possible mild colitis of transverse colon Venous Doppler negative, low suspicion for PE at this time given improvement with IV fluids and NG tube placement Blood cultures negative 2 day WBC stable Pending CBC, CMP today, problems with IV access ID recommendation; Cont Zosyn x 7 days (05/12 -05/19) to cover for PNA On admission HR:143, RR:28, Bands: 18. Meets 3 out of 5 SIRS criteria. Unknown source of infection. Vancomycin and Zosyn added empirically for coverage. UA and Culture ordered. UA negative, f/u uCx Chest Xray: Right upper lobe consolidation CT of abdomen x 2; probable pyelonephritis as above, versus interstitial nephritis versus renal infarction versus renal lymphoma. 5 mm calcification could represent appendicolith Lipase negative Follow-up sputum culture. Urine strep pneumo antigen and Legionella antigens negative (4) Pneumonia Code(s): J18.9 - Pneumonia, unspecified organism Status: Acute Plan: Patient asymptomatic from a respiratory standpoint, continues to improve in mental status, however her chest x-ray looks worse today Continue treatment for nosocomial pneumonia, snf related Continue IV Zosyn for PNA x 7 days as above, On PO Vanc for C. Diff Chest x-ray 05/16: Bilateral parenchymal infiltrates Chest x-ray 05/12: No change Chest x-ray 05/11: Right upper lobe consolidation most characteristic of pneumonia (5) Vomiting and diarrhea Code(s): R11.10 - Vomiting, unspecified; R19.7 - Diarrhea, unspecified Status : Acute Plan: Resolved. C. difficile positive, epit 027 positive Follow-up recommendations of GI; Dificid and vancomycin p.o., no evidence of toxic megacolon at this time - Mild colitis of transverse colon on CT -Patient may require stool transfer versus immunotherapy, poor prognosis CT negative 2 for any gallbladder pathology or obstruction mass s/p Flagyl 500 mg p.o. (05/11-05/12) Will monitor for improvement Patient actively having dark green liquid stool Cont Vanc and Dific PO per ID Protonix 40 mg IV daily. Zofran 8 mg IV q8 for Nausea Continue to monitor CMP for any electrolyte abnormalities due to vomiting and diarrhea. (6) Pyelonephritis Code(s): N12 - Tubulo-interstitial nephritis, not specified as acute or chronic Status: Acute Plan: Possible pyelonephritis on CT versus renal infarction ID discussed w RADS, likely not pyelo (7) Leukopenia due to antineoplastic chemotherapy Code(s): D70.1 - Agranulocytosis secondary to cancer chemotherapy; T45.1X5A - Adverse effect of antineoplastic and immunosuppressive drugs, initial encounter Status: Acute Plan: WBC: 3.3 on admission, Continue to f/u CBC Possibly due to patient being on chemotherapy. Patient is currently afebrile. Oncology consulted. Appreciate recommendations. Patient's private oncologist Dr. Zuñiga to see , update us on baseline mental status for this patient -Myelosuppression attributed to recent chemotherapy with Taxol, continue to follow-up CBC -Oncology following; may start on Neupogen if neutropenic on consistent labs, will get port study when more stable Follow-up CBC, PT/INR, CMP in a.m. Continue to monitor vitals every 4. (8) Tachycardia Code(s): R00.0 - Tachycardia, unspecified Status: Acute Plan: Resolving with treatment for severe sepsis, HR 93 this AM Follow-up recommendations of furnace combustion analyst (9) Hypokalemia Code(s): E87.6 - Hypokalemia Status: Acute Plan: Resolved. K+ 3.5 this morning. K+ 2.5 (05/13) --> 3.3 --> 3.0 (10) MARIELA (acute kidney injury) Code(s): N17.9 - Acute kidney failure, unspecified Status: Acute Plan: Resolved on 05/[address] 2 on 05/12, creatinine 1.81 Caution with IV contrast, nephrotoxins, NSAIDs Cr: 1.19 on admission. Baseline: 0.67 Possibly due to dehydration due to vomiting and diarrhea Continue rehydration with fluids. Follow-up CMP in a.m. (11) Metastatic breast cancer Code(s): C50.919 - Malignant neoplasm of unspecified site of unspecified female breast Status: Chronic Plan: Currently followed by Dr. Zuñiga, oncology. Spoke with Dr. Ayers, follow-up with Dr. Zuñiga CT of abdomen with contrast: no additional tumors revealed CT head w/ and w/out IV contrast: No evidence of brain metastases. Stable chronic white matter ischemic changes Continue to treat for infxn Oncology consulted. Appreciate recommendations. (12) Nutrition, metabolism, and development symptoms Code(s): R63.8 - Other symptoms and signs concerning food and fluid intake Status: Acute Plan: Fluids: clear liquids Electrolytes: Monitor and Replete as needed, watching low glucose and low calcium Diet: clear liquids (13) DVT prophylaxis Status: Acute Plan: Lovenox 40 subcu daily - Assessment and Plan 68-year-old female currently undergoing chemotherapy for metastatic breast cancer , and severe sepsis with excessive tachycardia, vomiting and diarrhea, and pneumonia, C. difficile positive with pyelonephritis on CT. Discharge Planning: Discharge pending clinical improvement, poor prognosis
[2018-05-16] MEDS: Dextrose 5% in Water Inj 1,000 ML IV.CONT SCH (11:34)
[2018-05-16] MEDS: Insulin NovoLOG Aspart Correctional Sugar Inj SQ SCH ×3 (11:37→21:07)
--- NOTE | 2018-05-16 12:16 | P.PNCC ---
Subjective Subjective Remarks/Hospital Course: Patient is a 68-year-old female with history of metastatic breast cancer currently undergoing chemotherapy by Dr. Zuñiga, last dose of chemotherapy on Monday, history of psoriatic arthritis who presented to the presentation was emergency department with nausea, vomiting and diarrhea of about 24 hour duration prior to presentation. [facility] was having productive cough and the physician there started on Levaquin. WBC count on 3.3 with 18% bands. Her creatinine was slightly elevated at 1.2. Stool studies revealed she was positive for C. difficile and also positive for Epid 027, for which she was receiving p.o. Flagyl. Patient also receiving broad-spectrum antibiotics with IV vancomycin and IV Zosyn for right upper lobe pneumonia on chest x-ray, and probable acute pyelonephritis. Today patient was found to be increasingly confused lethargic more tachycardic and hypotensive. Patient was given 1 L normal saline fluid bolus. With concern for worsening sepsis patient was moved to the ICU and critical care medicine was consulted. I immediately evaluated the patient she is tachycardic very lethargic but wakes up to stimulation. She has extensive skin mottling problem most likely from severe sepsis. Her CT abdomen pelvis yesterday was unremarkable other than pyelonephritis, abdominal exam shows only mild tenderness. However ABG shows a pH of 7.43, PCO2 15.3, PO2 56 and base excess of -14. CBC CMP lactic acid is pending at this time. I have discussed the case with Dr. Gonzalez from GI. Discontinue p.o. Flagyl, discontinue IV vancomycin. I will start her on Dificid and p.o. vancomycin. Continue aggressive fluid resuscitation, change maintenance fluid to bicarbonate infusion. Repeat CT of the abdomen pelvis due to severe acidosis. Her prognosis is guarded given her age, immunosuppressed state metastatic cancer and severe C. difficile. 05/13: Remains critical but mentation is slightly improved. Remains tachycardic in 120s. Creatinine now 1.8. Lactic acid 3.9. Will give additional fluid bolus. Started on po Dificid and p.o. vancomycin yesterday via OG tube. There is no evidence of toxic megacolon at this time but wit the elevated creatinine patient has severe C. difficile colitis 05/14 Patient is lying in bed in NAD. Afebrile. Lactic acid trending down 3.2 yesterday. Renal function is improving with Cr: 0.95 this morning. 05/15: Resting in bed in no acute distress. Heart rate less than 100. Noted CT abdomen/pelvis revealed colitis/mild transverse colon. Tolerating diet. Wishes to get out of bed. SUBJECTIVE: 05/16: Afebrile. Currently on room air. Tolerating diet. Hypoglycemic same. Replacing potassium, calcium and phosphorus. Appears comfortable. Objective Vital Signs / I&O: Vital Signs 05/15/18 13:00 05/15/18 13:31 05/15/18 14:00 Temperature Pulse Rate 100 H 99 H 93 H Respiratory Rate 37 H 29 H 25 H Blood Pressure 153/68 H Pulse Oximetry 80 L 93 L 96 05/15/18 14:01 05/15/18 15:00 05/15/18 16:00 Temperature 98.0 F Pulse Rate 93 H 95 H 113 H Respiratory Rate 28 H 26 H Blood Pressure 140/63 145/64 H Pulse Oximetry 96 96 05/15/18 16:40 05/15/18 20:00 05/15/18 20:19 Temperature 98.8 F Pulse Rate 86 99 H 89 Respiratory Rate 18 33 H 20 Blood Pressure 141/69 H Pulse Oximetry 98 96 05/16/18 00:00 05/16/18 00:24 05/16/18 04:00 Temperature 99.0 F 98.6 F Pulse Rate 96 H 96 H 92 H Respiratory Rate 28 H 18 30 H Blood Pressure 156/61 H 131/66 Pulse Oximetry 05/16/18 04:07 05/16/18 07:00 05/16/18 08:00 Temperature Pulse Rate 91 H 93 H Respiratory Rate 18 18 Blood Pressure Pulse Oximetry 98 05/16/18 11:00 Temperature Pulse Rate 98 H Respiratory Rate 18 Blood Pressure Pulse Oximetry Intake & Output 05/15/18 05/16/18 05/16/18 18:59 06:59 18:59 Intake Total 650 / 650 1610 / 1610 1000 / 1000 Output Total 800 / 800 1000 / 1000 Balance -150 / -150 610 / 610 1000 / 1000 Weight 117.5 kg Intake: IV 200 / 200 1460 / 1460 1000 / 1000 D5W Inj 1,000 ML @ 30 mls/hr IV 1000 / 1000 .CONT .Q24H [facility] Rx#:[id number] Zosyn 4.5 GM Premix 4.5 gm In 200 / 200 200 / 200 100 ml @ 200 mls/hr IV.SIG Q6H [facility] Rx#:[id number] Potassium Phosphate Inj 30 MMOL 260 / 260 In NS Inj 250 ML @ 42 mls/hr IV.SIG UNSCH PRN Rx#:[id number] Oral 450 / 450 150 / 150 Output: Stool 150 / 150 100 / 100 Urine Amount (Catheter) 650 / 650 900 / 900 Female External 650 / 650 900 / 900 Other: Date of Last Bowel Movement 05/15/18 05/15/18 # Incontinent Bowel Movements 2 Result Diagrams: 05/16/18 04:26 05/16/18 04:26 Other Results: Microbiology 05/12/18 15:32 Blood - Line Aerobic Blood Culture - Preliminary No growth in 4 days 05/12/18 15:32 Blood - Line Anaerobic Blood Culture - Preliminary No growth in 4 days 05/12/18 15:25 Blood - Line Aerobic Blood Culture - Preliminary No growth in 4 days 05/12/18 15:25 Blood - Line Anaerobic Blood Culture - Preliminary No growth in 4 days 05/11/18 22:20 Blood - Peripheral Aerobic Blood Culture - Final No growth in 5 days 05/11/18 22:20 Blood - Peripheral Anaerobic Blood Culture - Final QNS - See aerobic report. 05/11/18 19:45 Blood - Peripheral Aerobic Blood Culture - Final No growth in 5 days 05/11/18 19:45 Blood - Peripheral Anaerobic Blood Culture - Final QNS - See aerobic report. 05/12/18 16:00 Urine - Catheterized Urine Streptococcus pneumoniae Antigen ( M - Final Presumptive negative for streptococcus pneumoniae antigen, suggesting no current or recent infection. Infection due to Streptococcus pneumoniae cannot be ruled out since the antigen present in the sample may be below the detection limit of the test. 05/12/18 16:00 Urine - Catheterized Urine Legionella Antigen - Final Presumptive negative for Legionella pneumophila serogroup 1 antigen in urine, suggesting no recent or recurrent infection. Infection due to Legionella cannot be ruled out since other serogroups and species may cause disease, antigen may not be present in urine in early infection, and the level of antigen present in the urine may be below the detection limit of the test. Imaging: Chest X-Ray 05/11/18 00:00 CONCLUSION: Right upper lobe consolidation most characteristic of pneumonia. [id number] in superior vena cava. Chest X-Ray 05/11/18 09:37 CONCLUSION: 1. No acute abnormality or significant interval change. Chest CT 05/12/18 00:00 CONCLUSION: 1. Confluent opacity in the right upper lobe that is new when compared to the prior study 2016. Morphology would favor scarring. There is mild associated bronchiectasis. More acute consolidation is also in the differential diagnosis. Neoplasm would be less likely but is in the differential diagnosis. Recommend a follow-up noncontrast chest CT confirm stability or resolution in 3 months. 2. Minimal nonspecific groundglass opacity in the left upper lobe. The prominent bilateral groundglass opacity seen on prior study of 2017 is not seen on today's study. Head CT 05/12/18 00:00 CONCLUSION: 1. No acute intracranial abnormalities. Stable chronic white matter ischemic changes. . Venous Doppler Study 05/12/18 00:00 CONCLUSION: No evidence of lower extremity DVT on the right or left. Abdomen/Pelvis CT 05/12/18 00:22 CONCLUSION: 1. Abnormal appearance to the left kidney with multiple wedge-shaped areas of decreased enhancement. The findings are characteristic of pyelonephritis with differential considerations of renal infarction, interstitial nephritis, and renal lymphoma. 2. 5 mm calcification in the cecum near the appendiceal orifice could represent an appendicolith. The appendix, however, has a normal size and radiographic appearance. Chest X-Ray 05/12/18 13:35 CONCLUSION: Right upper lobe airspace disease similar to May 3. Abdomen/Pelvis CT 05/12/18 15:00 CONCLUSION: 1. Questionable mild mural thickening of the colon that could indicate a mild colitis, especially transverse colon. 2. Heterogeneous renal parenchymal enhancement not as optimally evaluated as on prior study. Cannot exclude pyelonephritis. 3. Bhagat catheter in decompressed bladder. 4. Hiatal hernia. 5. Moderate coronary calcifications. Abdomen X-Ray 05/12/18 21:10 CONCLUSION: Nasogastric tube in the stomach with the tip at the gastroesophageal junction. Chest X-Ray 05/13/18 06:00 CONCLUSION: Persistent right upper lung opacity/infiltrate. No new findings. Chest X-Ray 05/14/18 06:00 CONCLUSION: Stable masslike opacity right upper lobe measuring 2.5 cm as well as a vague nodular density in the left mid lung identified. Chest X-Ray 05/15/18 06:00 CONCLUSION: Clear lungs. Chest X-Ray 05/16/18 06:00 CONCLUSION: Bilateral parenchymal infiltrates. Objective Remarks: GENERAL: Patient is 68yo female lying in bed in NAD on room air SKIN: Warm and dry. HEAD: Normocephalic. EYES: No scleral icterus. No injection or drainage. NECK: Supple, trachea midline. No JVD or lymphadenopathy. CARDIOVASCULAR: Regular rate and rhythm without murmurs, gallops, or rubs.. Port is clean dry and intact RESPIRATORY: Breath sounds equal bilaterally. No accessory muscle use. GASTROINTESTINAL: Abdomen soft, normoactive bowel sounds, tenderness predominantly in the right upper quadrant MUSCULOSKELETAL: Trace bilateral lower extremity edema. Neuro: Awake and alert. Assessment and Plan - Assessment and Plan Plan: ASSESSMENT: Septic shock Toxic metabolic encephalopathy Severe C. difficile colitis/epid 027 positive Acute kidney failure Lactic acidosis Respiratory insufficiency Right upper lobe pneumonia/healthcare associated Acute pyelonephritis Leukopenia secondary to chemotherapy Immunocompromised state Metastatic breast cancer/intralobular stage IV Leukocytosis Anemia Thrombocytopenia Hypophosphatemia Hypocalcemia Hypopotassemia Gastroesophageal reflux disease History of psoriasis/psoriasis arthritis History of restrictive lung disease PLAN: NEURO: -Minimize any sedation. Monitor neuro status -CT of the head negative for acute findings -Acetaminophen 650 every 4 hours as needed fever RESP: -Continue with oxygen keep sats >92% -Albuterol/ipratropium aerosols every 4 hours/albuterol every 2 hours as needed dyspnea -CT chest 05/12: Confluent opacity in the right upper lobe that is new when compared to the prior study 2016. Morphology would favor scarring. There is mild associated bronchiectasis. More acute consolidation is also in the differential diagnosis. Neoplasm would be less likely but is in the differential diagnosis. Recommend a -Will need repeat CT chest in 4-6 weeks to confirm stability or resolution CV: -Monitor HR and BP keep MAP>65mmHg -Lactic acid now 3.2 yesterday -Serial lactic acid monitoring till clear. -Continue with IVF -Currently on diltiazem 30 3 times daily. GI: -C. difficile Epid 027 positive -Continue fidaxomicin 200 milligrams twice daily and p.o. vancomycin 500 mg 4 times daily. GI following -Abdominal CT 05/11/18 did not show any evidence of severe colitis or toxic megacolon, but showed some evidence of acute pyelonephritis -Repeat CT without contrast 05/12/2018 mild colitis -Speech eval, start clear liquid diet if ok with GI since 05/13 -Pantoprazole 40 mg po daily. : -Monitor renal function closely. Bhagat catheter. -See pyelonephritis treatment in ID section -Change IVF to D5W@30ml/hr, monitor sodium level ID: -Follow-up blood urine and sputum cultures. Urine Legionella and pneumococcal antigen negative -Continue PO fidaxomicin and p.o. vancomycin for severe C Diff colitis -On Zosyn for possible pneumonia and ? pyelonephritis -Will consult ID. HEME: -Monitor CBC, coags -Oncology following. ENDO: -Electrolyte replacement per protocol -Sliding scale insulin if needed PROPH: -Bilateral lower extremity SCDs. Lovenox/Protonix LINES: -Utilize peripheral IVs, Mediport, Level 2 Stable from critical care medicine standpoint. We will sign off the [facility]
[2018-05-16] MEDS: Enoxaparin Inj 40 MG/0.4 ML Syringe SQ SCH (14:06)
[2018-05-16] MEDS ORDERED: Dextrose 5%/NaCl 0.45% Inj 1,000 ML IV.CONT SCH (17:30)
[2018-05-16 17:46] LABS: Chloride, Feces 121 mmol/L (See Comment); Osmolality, Feces 312 mOsm/kg (See Comment); Potassium, Feces 15 mmol/L; Sodium, Feces 134 mmol/L
[2018-05-16] MEDS ORDERED: Dextrose 10% in Water Inj 1,000 ML IV.CONT SCH (18:00)
[2018-05-16] MEDS: Dextrose 10% in Water Inj 500 ML IV.SIG SCH (18:57)
--- NOTE | 2018-05-16 19:19 | P.PNID ---
Subjective Remarks: pt is doing OK Off pressors BP stable afebrile Antibiotics: IV zosyn vanco po dificid Allergies/Adverse Reactions: Allergies hydromorphone [From Dilaudid] Adverse Reaction (Intermediate, Verified 05/11/18 10:38) Dizziness Objective Vital Signs 05/15/18 20:00 05/15/18 20:19 05/15/18 21:00 Temperature 98.8 F Pulse Rate 99 H 89 99 H Respiratory Rate 33 H 20 41 H Blood Pressure 141/69 H 146/63 H Pulse Oximetry 98 96 05/15/18 22:00 05/15/18 22:01 05/15/18 23:00 Temperature Pulse Rate 98 H 97 H 95 H Respiratory Rate 26 H 21 28 H Blood Pressure 135/63 141/65 H Pulse Oximetry 100 100 98 05/16/18 00:00 05/16/18 00:24 05/16/18 01:00 Temperature 99.0 F Pulse Rate 92 H 96 H 96 H Respiratory Rate 21 18 22 Blood Pressure 156/61 H 152/67 H Pulse Oximetry 95 100 05/16/18 02:00 05/16/18 02:01 05/16/18 03:00 Temperature Pulse Rate 94 H 101 H 91 H Respiratory Rate 21 43 H 27 H Blood Pressure 150/65 H 148/62 H Pulse Oximetry 100 98 100 05/16/18 04:00 05/16/18 04:07 05/16/18 05:00 Temperature 98.6 F Pulse Rate 91 H 91 H 92 H Respiratory Rate 20 18 31 H Blood Pressure 135/77 Pulse Oximetry 98 97 05/16/18 05:01 05/16/18 06:00 05/16/18 07:00 Temperature Pulse Rate 93 H 92 H 93 H Respiratory Rate 34 H 46 H 45 H Blood Pressure 134/62 131/66 126/59 L Pulse Oximetry 98 99 99 05/16/18 08:00 05/16/18 09:00 05/16/18 10:00 Temperature 97.8 F Pulse Rate 87 97 H 95 H Respiratory Rate 35 H 33 H 23 Blood Pressure 153/64 H 145/65 H Pulse Oximetry 99 91 L 98 05/16/18 10:01 05/16/18 11:00 05/16/18 12:00 Temperature 98.0 F Pulse Rate 91 H 99 H 90 Respiratory Rate 22 40 H 19 Blood Pressure 127/60 141/66 H 135/59 L Pulse Oximetry 97 99 100 05/16/18 13:00 05/16/18 14:00 05/16/18 14:35 Temperature Pulse Rate 95 H 92 H 92 H Respiratory Rate 46 H 41 H 18 Blood Pressure 119/54 L 127/87 Pulse Oximetry 99 100 Intake & Output 05/16/18 05/16/18 05/17/18 06:59 18:59 06:59 Intake Total 1610 / 1610 1100 / 1100 Output Total 1000 / 1000 Balance 610 / 610 1100 / 1100 Weight 117.5 kg Intake: IV 1460 / 1460 1100 / 1100 D5W Inj 1,000 ML @ 30 mls/hr IV 1000 / 1000 .CONT .Q24H WILFREDO Rx#:[id number] Zosyn 4.5 GM Premix 4.5 gm In 200 / 200 100 / 100 100 ml @ 200 mls/hr IV.SIG Q6H [facility]ILFREDO Rx#:[id number] Potassium Phosphate Inj 30 MMOL 260 / 260 In NS Inj 250 ML @ 42 mls/hr IV.SIG UNSCH PRN Rx#:[id number] Oral 150 / 150 Output: Stool 100 / 100 Urine Amount (Catheter) 900 / 900 Female External 900 / 900 Other: Date of Last Bowel Movement 05/15/18 05/16/18 # Incontinent Bowel Movements 2 05/12/18 15:32 Blood - Line Aerobic Blood Culture - Preliminary No growth in 4 days 05/12/18 15:32 Blood - Line Anaerobic Blood Culture - Preliminary No growth in 4 days 05/12/18 15:25 Blood - Line Aerobic Blood Culture - Preliminary No growth in 4 days 05/12/18 15:25 Blood - Line Anaerobic Blood Culture - Preliminary No growth in 4 days 05/11/18 22:20 Blood - Peripheral Aerobic Blood Culture - Final No growth in 5 days 05/11/18 22:20 Blood - Peripheral Anaerobic Blood Culture - Final QNS - See aerobic report. 05/11/18 19:45 Blood - Peripheral Aerobic Blood Culture - Final No growth in 5 days 05/11/18 19:45 Blood - Peripheral Anaerobic Blood Culture - Final QNS - See aerobic report. Lab - Hematology Results 05/15/18 05/16/18 13:39 04:26 WBC 3.7 L 4.6 RBC 3.33 L 3.27 L Hgb 10.1 L 10.0 L Hct 30.7 L 30.3 L MCV 92.1 92.6 MCH 30.4 30.6 MCHC 33.0 33.0 RDW 22.1 H 22.5 H Plt Count 100 L 98 L MPV 10.2 10.2 Prelim Diff (Auto) Camera Machinist Manual diff required WBC Differential Manual diff final Manual diff final Seg Neuts % (Manual) 54 64 Band Neuts % (Manual) 1 5 Lymphocytes % (Manual) 27 8 L Monocytes % (Manual) 7 6 Eosinophils % (Manual) 2 Metamyelocytes % (Man) 4 H 11 H Myelocytes % (Man) 1 H 4 H Promyelocytes % (Man) 4 H 2 H Abs Neuts (Manual) 2.4 4.0 Nucleated RBCs/100 WBC 29 H 11 H Differential Comment . . Toxic Granulation 2+ H 2+ H Toxic Vacuolation Present H Platelet Estimate Low L Low L Platelet Morphology Normal Enlarged H Ovalocytes 1+ H 1+ H Acanthocytes (Spur) Occ H Keratocytes Occ H Lab - Chemistry Results 05/15/18 05/16/18 05/16/18 13:39 04:26 09:32 Sodium 145 145 Potassium 3.2 L 3.5 Chloride 112 H 111 H Carbon Dioxide 23.3 24.0 Anion Gap 10 10 BUN 7 5 L Creatinine 0.79 0.64 Estimated GFR 73 L Greater than 89 POC Glucose 48 L* Random Glucose 88 55 L Calcium 6.8 L* 6.5 L* Prot Corrected Calcium 7.8 L 7.4 L* Phosphorus 0.7 L 1.6 L Magnesium 1.9 1.8 Total Bilirubin 0.6 0.8 AST 22 22 ALT 36 34 Alkaline Phosphatase 121 H 121 H Total Protein 5.2 L 5.2 L Albumin 1.8 L 1.8 L 05/16/18 05/16/18 05/16/18 11:36 17:09 17:53 Sodium Potassium Chloride Carbon Dioxide Anion Gap BUN Creatinine Estimated GFR POC Glucose 95 40 L* 35 L* Random Glucose Calcium Prot Corrected Calcium Phosphorus Magnesium Total Bilirubin AST ALT Alkaline Phosphatase Total Protein Albumin 05/16/18 17:59 Sodium Potassium Chloride Carbon Dioxide Anion Gap BUN Creatinine Estimated GFR POC Glucose 86 Random Glucose Calcium Prot Corrected Calcium Phosphorus Magnesium Total Bilirubin AST ALT Alkaline Phosphatase Total Protein Albumin Imaging: ITS Impressions Chest CT 05/12/18 00:00 CONCLUSION: 1. Confluent opacity in the right upper lobe that is new when compared to the prior study 2016. Morphology would favor scarring. There is mild associated bronchiectasis. More acute consolidation is also in the differential diagnosis. Neoplasm would be less likely but is in the differential diagnosis. Recommend a follow-up noncontrast chest CT confirm stability or resolution in 3 months. 2. Minimal nonspecific groundglass opacity in the left upper lobe. The prominent bilateral groundglass opacity seen on prior study of 2017 is not seen on today's study. Head CT 05/12/18 00:00 CONCLUSION: 1. No acute intracranial abnormalities. Stable chronic white matter ischemic changes. . Venous Doppler Study 05/12/18 00:00 CONCLUSION: No evidence of lower extremity DVT on the right or left. Abdomen/Pelvis CT 05/12/18 15:00 CONCLUSION: 1. Questionable mild mural thickening of the colon that could indicate a mild colitis, especially transverse colon. 2. Heterogeneous renal parenchymal enhancement not as optimally evaluated as on prior study. Cannot exclude pyelonephritis. 3. Bhagat catheter in decompressed bladder. 4. Hiatal hernia. 5. Moderate coronary calcifications. Abdomen X-Ray 05/12/18 21:10 CONCLUSION: Nasogastric tube in the stomach with the tip at the gastroesophageal junction. Chest X-Ray 05/16/18 06:00 CONCLUSION: Bilateral parenchymal infiltrates. Physical Exam: GENERAL: NAD SKIN: Warm and dry. HEAD: Atraumatic. Normocephalic. EYES: Pupils equal and round. No scleral icterus. No injection or drainage. ENT: No nasal bleeding or discharge. Mucous membranes pink and moist. NECK: Trachea midline. No JVD. CARDIOVASCULAR: Regular rate and rhythm. RESPIRATORY: No accessory muscle use. Clear to auscultation. Breath sounds equal bilaterally. GASTROINTESTINAL: Abdomen soft, non-tender, moderately distended. Hepatic and splenic margins not palpable. MUSCULOSKELETAL: Extremities without clubbing, cyanosis, or edema. No obvious deformities. well prefused hands and feet NEUROLOGICAL: Awake and alert. No obvious cranial nerve deficits. Motor grossly within normal limits. Five out of 5 muscle strength in the arms and legs. Normal speech. PSYCHIATRIC: Appropriate mood and affect; insight and judgment normal. Assessment and Plan - Plan Metastatic breadst Ca sp chemo Mildly cytopenic, liklely suppressed from chemo - improved WBC to 3700 Hypervirulent 027 C.diff Severe sepsis: likely C/diff ? R side pyelo, though UA, clin presntation not cw pyelo ARF - imnproved with IVF resuscitation cont po vanco cont Dificid cont on zosyn / PNA chk sputum clx dw RN
[2018-05-16 23:05] LABS: Phosphorus 1.7 mg/dL (2.5-4.9)
[2018-05-16 23:07] LABS: Potassium 3.6 meq/L (3.5-5.1)
[2018-05-17] MEDS: Piperacil/Tazo 4.5 GM Premix 4.5 GM/100 ML BAG IV.SIG SCH ×4 (04:06→22:00)
[2018-05-17] MEDS: Dextrose 10% in Water Inj 500 ML IV.SIG SCH ×2 (04:07→14:36)
[2018-05-17 10:15] LABS: Hematocrit 30.7 % (35.0-46.0); Hemoglobin 10.2 gm/dL (11.6-15.3); Mean Corpuscular HGB Conc 33.1 % (32.0-36.0); Mean Corpuscular Hemoglobin 30.7 pg (27.0-34.0); Mean Corpuscular Volume 92.7 fL (80.0-100.0); Mean Platelet Volume 9.9 fL (7.0-11.0); Platelet Count 115 th/mm3 (150-450); Red Blood Count 3.31 mil/mm3 (4.00-5.30); Red Cell Distribution Width 22.4 % (11.6-17.2); White Blood Count 6.9 th/mm3 (4.0-11.0)
--- NOTE | 2018-05-17 10:23 | P.PNFP ---
Subjective Interval history: Patient seen and examined bedside this morning. Patient continues to look more alert, awake, and comfortable every day. She has been drinking clear fluids without any difficulty and eating Jell-O without any difficulty. No nausea or vomiting. She denies any abdominal pain or pain anywhere. She is able to move all extremities. She denies any chest pain, shortness of breath, dizziness. She does admit to mildly increased cough overnight. Results - Labs Result diagrams: 05/16/18 04:26 05/16/18 21:45 Abnormal lab results 05/16/18 05/16/18 05/16/18 Range/Units 17:09 17:53 21:45 POC Glucose 40 L* 35 L* (68-110) mg/dl Phosphorus 1.7 L (2.5-4.9) mg/dL BMP 05/16/18 21:45 Potassium 3.6 Physical Exam Vital signs: Vital Signs 05/16/18 10:00 05/16/18 10:01 05/16/18 11:00 Temperature Pulse Rate 95 H 91 H 99 H Respiratory Rate 23 22 40 H Blood Pressure 127/60 141/66 H Pulse Oximetry 98 97 99 05/16/18 12:00 05/16/18 13:00 05/16/18 14:00 Temperature 98.0 F Pulse Rate 90 95 H 92 H Respiratory Rate 19 46 H 41 H Blood Pressure 135/59 L 119/54 L 127/87 Pulse Oximetry 100 99 100 05/16/18 14:35 05/16/18 15:00 05/16/18 16:00 Temperature 97.7 F Pulse Rate 92 H 91 H 91 H Respiratory Rate 18 19 41 H Blood Pressure 122/57 L 132/58 L Pulse Oximetry 99 100 05/16/18 17:00 05/16/18 17:05 05/16/18 18:00 Temperature Pulse Rate 93 H 92 H 90 Respiratory Rate 38 H 32 H 24 Blood Pressure 137/63 Pulse Oximetry 93 L 98 99 05/16/18 19:00 05/16/18 20:00 05/16/18 20:15 Temperature 97.6 F Pulse Rate 100 H 88 84 Respiratory Rate 27 H 30 H 20 Blood Pressure 133/60 Pulse Oximetry 85 L 96 93 L 05/17/18 00:00 05/17/18 04:00 05/17/18 08:18 Temperature 97.8 F 97.6 F Pulse Rate 90 87 97 H Respiratory Rate 25 H 23 18 Blood Pressure 114/57 L 115/56 L Pulse Oximetry 98 99 05/17/18 08:19 Temperature Pulse Rate Respiratory Rate Blood Pressure Pulse Oximetry 100 Intake & Output 05/16/18 05/17/18 05/17/18 18:59 06:59 18:59 Intake Total 1525 / 1525 1440 / 1440 Output Total 900 / 900 1000 / 1000 Balance 625 / 625 440 / 440 Weight 116.3 kg Intake: IV 1200 / 1200 960 / 960 D5W Inj 1,000 ML @ 30 mls/hr IV 1000 / 1000 .CONT .Q24H [facility] Rx#:[id number] Inj 500 ML @ 50 mls/hr IV. 500 / 500 SIG .Q10H [facility]FREDO Rx#:[id number] Zosyn 4.5 GM Premix 4.5 gm In 200 / 200 200 / 200 100 ml @ 200 mls/hr IV.SIG Q6H [facility]O Rx#:[id number] Potassium Phosphate Inj 30 MMOL 260 / 260 In NS Inj 250 ML @ 43.333 mls/ hr IV.SIG ONCE ONE Rx#:[id number] Oral 325 / 325 480 / 480 Output: Urine 700 / 700 Stool 300 / 300 300 / 300 Urine Amount (Catheter) 600 / 600 Female External 600 / 600 Other: # Voids 1 # Incontinent Voids 1 Date of Last Bowel Movement 05/16/18 05/16/18 # Incontinent Bowel Movements 1 - Constitutional no acute distress - Routine HEENT Exam Head: Present: normocephalic - Routine Respiratory Exam Present: CTA bilaterally. Absent: accessory muscle use, prolonged expiratory phase, wheezes - Routine Cardiovascular Exam Present: RRR, S1, S2. Absent: murmur - Routine Abdominal Exam Present: soft, normoactive bowel sounds. Absent: tenderness - Routine Extremities Exam Absent: cyanosis, clubbing, edema - Routine Neurological Exam Present: alert, oriented X3 - Urinary Catheter Management Indwelling Urethral Catheter Cath placed during this visit: yes, but has since been removed by the nurse Reason for continuing: Continue criteria not met Insertion date: 05/12/18 Insertion time: 15:00 Removal date: 05/14/18 Removal time: 17:28 Female External Cath placed during this visit: no Assessment and Plan - Assessment (1) C. difficile colitis Code(s): A04.72 - Enterocolitis due to Clostridium difficile, not specified as recurrent Status: Acute Plan: C. difficile positive, epit 027 positive Follow-up recommendations of GI; Dificid and vancomycin p.o., no evidence of toxic megacolon at this time - Mild colitis of transverse colon on CT, continue Vanco p.o. and Dificid p.o. ( 05/12 - ) -GI has signed off: Can continue to follow ID recommendations for treatment and have patient follow-up with GI after discharge as an outpatient. -Patient may require stool transfer versus immunotherapy, poor prognosis CT negative 2 for any gallbladder pathology or obstruction mass s/p Flagyl 500 mg p.o. (05/11-05/12) Will monitor for improvement Patient actively having dark green liquid stool, although decreased now no abdominal pain Protonix 40 mg IV daily. Zofran 8 mg IV q8 for Nausea Continue to monitor CMP for any electrolyte abnormalities due to vomiting and diarrhea. (2) Cytopenia Code(s): D75.9 - Disease of blood and blood-forming organs, unspecified Status : Acute Plan: WBC improved to 4.6 yesterday, follow-up CBC today Myelosuppression attributed to recent chemotherapy with Taxol, continue to follow-up CBC -Oncology following; may start on Neupogen if neutropenic on consistent labs, will get port study when more stable Continue to follow-up CBCs (3) Pneumonia Code(s): J18.9 - Pneumonia, unspecified organism Status: Acute Plan: Patient with slightly increased cough today, ID following, treating for pneumonia as follows Continue treatment for nosocomial pneumonia, long-term related Continue IV Zosyn for PNA x 7 days as above, On PO Vanc for C. Diff Continue Flonase nasal spray Continue duo nebs scheduled every 4 hours Add incentive spirometer Chest x-ray 05/16: Bilateral parenchymal infiltrates Chest x-ray 05/12: No change Chest x-ray 05/11: Right upper lobe consolidation most characteristic of pneumonia (4) SIRS (systemic inflammatory response syndrome) Code(s): R65.10 - Systemic inflammatory response syndrome (SIRS) of non- infectious origin without acute organ dysfunction Status: Acute Plan: Resolved On 05/12: Signs of severe sepsis with altered mental status, tachycardia, hypotension, skin mottling Transferred to ICU on 05/12 at 1400, with NG tube placement and GI management of severe resistant C. difficile. Possible source of sepsis includes pneumonia, C. difficile colitis, bacteremia IV Vanc, Zosyn, and PO Flagyl (05/11-05/12) Per consult with ID, GI and Critical Care MD, Continue on IV Zosyn, with PO Vanc and PO Dificid (05/12 - ) Chest x-ray 05/13-05/14 shows right upper lobe opacity, CXR clear of opacity today Repeat CT abdomen showed no change, possible pyelonephritis (ID dw with rads and likely not pyelo), possible mild colitis of transverse colon Venous Doppler negative, low suspicion for PE at this time given improvement with IV fluids and NG tube placement Blood cultures negative 2 day WBC stable Pending CBC, CMP today, problems with IV access ID recommendation; Cont Zosyn x 7 days (05/12 -05/19) to cover for PNA On admission HR:143, RR:28, Bands: 18. Meets 3 out of 5 SIRS criteria. Unknown source of infection. Vancomycin and Zosyn added empirically for coverage. UA and Culture ordered. UA negative, f/u uCx Chest Xray: Right upper lobe consolidation CT of abdomen x 2; probable pyelonephritis as above, versus interstitial nephritis versus renal infarction versus renal lymphoma. 5 mm calcification could represent appendicolith Lipase negative Follow-up sputum culture. Urine strep pneumo antigen and Legionella antigens negative (5) Pyelonephritis Code(s): N12 - Tubulo-interstitial nephritis, not specified as acute or chronic Status: Acute Plan: Possible pyelonephritis on CT versus renal infarction ID discussed w RADS, likely not pyelo (6) Leukopenia due to antineoplastic chemotherapy Code(s): D70.1 - Agranulocytosis secondary to cancer chemotherapy; T45.1X5A - Adverse effect of antineoplastic and immunosuppressive drugs, initial encounter Status: Acute Plan: WBC: 3.3 on admission, Continue to f/u CBC Possibly due to patient being on chemotherapy. Patient is currently afebrile. Oncology consulted. Appreciate recommendations. Patient's private oncologist Dr. Zuñiga to see , update us on baseline mental status for this patient -Myelosuppression attributed to recent chemotherapy with Taxol, continue to follow-up CBC -Oncology following; may start on Neupogen if neutropenic on consistent labs, will get port study when more stable Follow-up CBC, PT/INR, CMP in a.m. Continue to monitor vitals every 4. (7) Tachycardia Code(s): R00.0 - Tachycardia, unspecified Status: Acute Plan: Resolved with treatment for severe sepsis; due to C. difficile colitis versus pneumonia Heart rate over the last 24 hours: 87-99 Patient is no longer receiving diltiazem for tachycardia Continue to hold home metoprolol 25 mg daily for 1-2 more days until we are sure BP is stable (8) Hypokalemia Code(s): E87.6 - Hypokalemia Status: Acute Plan: Resolved. Continue to follow-up CMP K+ 2.5 (05/13) --> 3.3 --> 3.0 (9) MARIELA (acute kidney injury) Code(s): N17.9 - Acute kidney failure, unspecified Status: Acute Plan: Resolved on 05/[address] 2 on 05/12, creatinine 1.81 Caution with IV contrast, nephrotoxins, NSAIDs Cr: 1.19 on admission. Baseline: 0.67 Possibly due to dehydration due to vomiting and diarrhea Continue rehydration with fluids. Follow-up CMP in a.m. (10) Metastatic breast cancer Code(s): C50.919 - Malignant neoplasm of unspecified site of unspecified female breast Status: Chronic Plan: Currently followed by Dr. Zuñiga, oncology. Spoke with Dr. Ayers, follow-up with Dr. Zuñiga CT of abdomen with contrast: no additional tumors revealed CT head w/ and w/out IV contrast: No evidence of brain metastases. Stable chronic white matter ischemic changes Continue to treat for infxn Oncology consulted. Appreciate recommendations. (11) Nutrition, metabolism, and development symptoms Code(s): R63.8 - Other symptoms and signs concerning food and fluid intake Status: Acute Plan: Fluids: clear liquids, f/u with speech therapy to re-eval possibly advancing diet Electrolytes: Monitor and Replete as needed, watching low glucose and low calcium Diet: clear liquids (12) DVT prophylaxis Status: Acute Plan: Lovenox 40 subcu daily - Assessment and Plan 68-year-old female currently undergoing chemotherapy for metastatic breast cancer , and severe sepsis with excessive tachycardia, vomiting and diarrhea, and pneumonia, C. difficile positive with pyelonephritis on CT. Discharge Planning: Discharge pending clinical improvement
[2018-05-17 10:41] LABS: Albumin 1.7 g/dL (3.4-5.0); Calcium 6.5 mg/dL (8.5-10.1); Carbon Dioxide 24.4 meq/L (21.0-32.0); Magnesium 1.5 mg/dL (1.5-2.5); Phosphorus 2.8 mg/dL (2.5-4.9); Potassium 3.2 meq/L (3.5-5.1)
[2018-05-17] MEDS ORDERED: Sodium Chlor 0.9% Inj 250 ML IV.SIG SCH (11:00)
[2018-05-17 11:07] LABS: Lymphocytes 9 % (9-44); Metamyelocytes 5 % (0-1); Monocytes 2 % (0-8); Myelocytes 17 % (0-0); Promyelocyte 7 % (0-0); Tallied Nucleated RBC 2 (0-0)
[2018-05-17 11:08] LABS: Ovalocytes 1+; Platelet Morphology Normal (Normal); Tear Drop Cells 1+
[2018-05-17] MEDS: Insulin NovoLOG Aspart Correctional Sugar Inj SQ SCH ×3 (11:39→22:01)
--- NOTE | 2018-05-17 12:48 | P.PNONC ---
Subjective Interval history: Afebrile Patient resting in bed in no obvious distress States she feels like frequency of her stools are decreasing, however she still has rectal bag She reports she worked with physical therapy Objective Vital Signs/Intake & Output: Vital Signs 05/16/18 13:00 05/16/18 14:00 05/16/18 14:35 Temperature Pulse Rate 95 H 92 H 92 H Respiratory Rate 46 H 41 H 18 Blood Pressure 119/54 L 127/87 Pulse Oximetry 99 100 05/16/18 15:00 05/16/18 16:00 05/16/18 17:00 Temperature 97.7 F Pulse Rate 91 H 91 H 93 H Respiratory Rate 19 41 H 38 H Blood Pressure 122/57 L 132/58 L Pulse Oximetry 99 100 93 L 05/16/18 17:05 05/16/18 18:00 05/16/18 19:00 Temperature Pulse Rate 92 H 90 100 H Respiratory Rate 32 H 24 27 H Blood Pressure 137/63 Pulse Oximetry 98 99 85 L 05/16/18 20:00 05/16/18 20:15 05/16/18 21:00 Temperature 97.6 F Pulse Rate 88 84 90 Respiratory Rate 30 H 20 35 H Blood Pressure 133/60 Pulse Oximetry 84 L 93 L 100 05/16/18 21:14 05/16/18 22:00 05/16/18 22:01 Temperature Pulse Rate 97 H 89 93 H Respiratory Rate 28 H 29 H 29 H Blood Pressure 133/60 124/60 Pulse Oximetry 99 77 L 93 L 05/16/18 23:00 05/16/18 23:01 05/17/18 00:00 Temperature 97.8 F Pulse Rate 84 89 90 Respiratory Rate 36 H 33 H 36 H Blood Pressure 143/60 H 114/57 L Pulse Oximetry 100 100 98 05/17/18 00:01 05/17/18 01:00 05/17/18 02:00 Temperature Pulse Rate 93 H 85 85 Respiratory Rate 38 H 23 21 Blood Pressure 114/57 L 128/57 L Pulse Oximetry 99 95 100 05/17/18 02:01 05/17/18 03:00 05/17/18 04:00 Temperature 97.6 F Pulse Rate 86 86 87 Respiratory Rate 19 21 23 Blood Pressure 124/56 L 134/61 115/56 L Pulse Oximetry 100 100 99 05/17/18 05:00 05/17/18 06:00 05/17/18 07:00 Temperature Pulse Rate 85 90 93 H Respiratory Rate 27 H 25 H 35 H Blood Pressure 122/57 L 127/66 135/61 Pulse Oximetry 100 98 100 05/17/18 08:00 05/17/18 08:18 05/17/18 08:19 Temperature Pulse Rate 88 97 H Respiratory Rate 37 H 18 Blood Pressure 131/57 L Pulse Oximetry 100 100 05/17/18 09:00 05/17/18 10:00 05/17/18 12:36 Temperature 98.7 F Pulse Rate 82 93 H 91 H Respiratory Rate 28 H 22 22 Blood Pressure 120/58 L 129/91 H Pulse Oximetry 100 99 Intake & Output 05/16/18 05/17/18 05/17/18 18:59 06:59 18:59 Intake Total 1525 / 1525 1440 / 1440 Output Total 900 / 900 1000 / 1000 Balance 625 / 625 440 / 440 Weight 256 lb 6.362 oz Intake: IV 1200 / 1200 960 / 960 D5W Inj 1,000 ML @ 30 mls/hr IV 1000 / 1000 .CONT .Q24H [facility] Rx#:[id number] D10W Inj 500 ML @ 50 mls/hr IV. 500 / 500 SIG .Q10H [facility] Rx#:[id number] Zosyn 4.5 GM Premix 4.5 gm In 200 / 200 200 / 200 100 ml @ 200 mls/hr IV.SIG Q6H [facility] Rx#:[id number] Potassium Phosphate Inj 30 MMOL 260 / 260 In NS Inj 250 ML @ 43.333 mls/ hr IV.SIG ONCE ONE Rx#:[id number] Oral 325 / 325 480 / 480 Output: Urine 700 / 700 Stool 300 / 300 300 / 300 Urine Amount (Catheter) 600 / 600 Female External 600 / 600 Other: # Voids 1 # Incontinent Voids 1 Date of Last Bowel Movement 05/16/18 05/16/18 05/16/18 # Incontinent Bowel Movements 1 Result Diagrams: 05/17/18 09:38 05/17/18 09:38 Laboratory Results: Laboratory Results - last 24 hr 05/11/18 05/16/18 05/16/18 20:15 17:09 17:53 WBC RBC Hgb Hct MCV MCH MCHC RDW Plt Count MPV Prelim Diff (Auto) WBC Differential Seg Neuts % (Manual) Band Neuts % (Manual) Lymphocytes % (Manual) Monocytes % (Manual) Metamyelocytes % (Man) Myelocytes % (Man) Promyelocytes % (Man) Abs Neuts (Manual) Nucleated RBCs/100 WBC Differential Comment Platelet Estimate Platelet Morphology Tear Drop Cells Ovalocytes Keratocytes Sodium Potassium Chloride Carbon Dioxide Anion Gap BUN Creatinine Estimated GFR POC Glucose 40 L* 35 L* Random Glucose Calcium Prot Corrected Calcium Phosphorus Magnesium Total Bilirubin AST ALT Alkaline Phosphatase Total Protein Albumin Stool Sodium 134 Stool Potassium 15 Stool Chloride 121 Stool Osmolality 312 Stool Osmotic Gap -8 Stool Phosphorous 10 Stool Magnesium 2 05/16/18 05/16/18 05/16/18 17:59 20:58 21:45 WBC RBC Hgb Hct MCV MCH MCHC RDW Plt Count MPV Prelim Diff (Auto) WBC Differential Seg Neuts % (Manual) Band Neuts % (Manual) Lymphocytes % (Manual) Monocytes % (Manual) Metamyelocytes % (Man) Myelocytes % (Man) Promyelocytes % (Man) Abs Neuts (Manual) Nucleated RBCs/100 WBC Differential Comment Platelet Estimate Platelet Morphology Tear Drop Cells Ovalocytes Keratocytes Sodium Potassium 3.6 Chloride Carbon Dioxide Anion Gap BUN Creatinine Estimated GFR POC Glucose 86 84 Random Glucose Calcium Prot Corrected Calcium Phosphorus 1.7 L Magnesium Total Bilirubin AST ALT Alkaline Phosphatase Total Protein Albumin Stool Sodium Stool Potassium Stool Chloride Stool Osmolality Stool Osmotic Gap Stool Phosphorous Stool Magnesium 05/17/18 05/17/18 05/17/18 09:38 09:38 11:33 WBC 6.9 RBC 3.31 L Hgb 10.2 L Hct 30.7 L MCV 92.7 MCH 30.7 MCHC 33.1 RDW 22.4 H Plt Count 115 L MPV 9.9 Prelim Diff (Auto) Manual diff required WBC Differential Manual diff final Seg Neuts % (Manual) 58 Band Neuts % (Manual) 2 Lymphocytes % (Manual) 9 Monocytes % (Manual) 2 Metamyelocytes % (Man) 5 H Myelocytes % (Man) 17 H Promyelocytes % (Man) 7 H Abs Neuts (Manual) 6.1 Nucleated RBCs/100 WBC 2 H Differential Comment . Platelet Estimate Low L Platelet Morphology Normal Tear Drop Cells 1+ H Ovalocytes 1+ H Keratocytes Occ H Sodium 143 Potassium 3.2 L Chloride 109 H Carbon Dioxide 24.4 Anion Gap 10 BUN 3 L Creatinine 0.68 Estimated GFR 87 L POC Glucose 87 Random Glucose 76 Calcium 6.5 L* Prot Corrected Calcium 7.5 L Phosphorus 2.8 D Magnesium 1.5 Total Bilirubin 0.8 AST 16 ALT 31 Alkaline Phosphatase 151 H Total Protein 5.0 L Albumin 1.7 L Stool Sodium Stool Potassium Stool Chloride Stool Osmolality Stool Osmotic Gap Stool Phosphorous Stool Magnesium Culture Results: Microbiology 05/12/18 15:32 Aerobic Blood Culture - Final Blood - Line No growth in 5 days Anaerobic Blood Culture - Final No growth in 5 days 05/12/18 15:25 Aerobic Blood Culture - Final Blood - Line No growth in 5 days Anaerobic Blood Culture - Final No growth in 5 days 05/11/18 22:20 Aerobic Blood Culture - Final Blood - Peripheral No growth in 5 days Anaerobic Blood Culture - Final QNS - See aerobic report. 05/11/18 19:45 Aerobic Blood Culture - Final Blood - Peripheral No growth in 5 days Anaerobic Blood Culture - Final QNS - See aerobic report. Medications: Active Medications Generic Name Dose Route Start Last Admin Trade Name Freq PRN Reason Stop Dose Admin Acetaminophen 650 mg 05/11/18 15:43 05/12/18 21:49 Tylenol PO 650 mg Q4H PRN Administration Temp > 100.4 Albuterol 1 ampul 05/15/18 12:00 05/17/18 12:36 Duoneb Neb (Wendi) NEB 1 ampul Q4HR NEB WENDI Administration Cholestyramine Resin 4 gm 05/13/18 21:00 05/17/18 08:27 Questran 4 Gm Pkt PO 4 gm BID WENDI Administration Dextrose 50 ml 05/16/18 09:42 05/16/18 17:13 D50w Vial IV.PUSH 50 ml UNSCH PRN Administration PER HYPOGLYCEMIA PROTOCOL Enoxaparin Sodium 40 mg 05/12/18 15:00 05/16/18 14:06 Lovenox Inj SQ 40 mg Q24H WENDI Administration Fidaxomicin 200 mg 05/12/18 14:30 05/17/18 08:27 Dificid PO 200 mg BID WENDI Administration Fluticasone Propionate 1 spray 05/16/18 09:00 05/17/18 08:28 Flonase Nasal [place] EACH NARE 1 spray DAILY WENDI Administration Piperacillin/Tazobactam/Dextrose 4.5 gm in 100 mls @ 200 mls/hr 05/11/18 22: 00 05/17/18 11:35 Zosyn 4.5 Gm Premix IV.SIG 200 mls/hr Q6H WENDI Administration Potassium Chloride 40 meq in 100 mls @ 25 mls/hr 05/13/18 09:33 05/15/18 03: 13 Kcl 40 Meq Premix Inj IV.SIG Infused Q2H PRN Infusion For Potassium 2.8 - 3.2 mEq/L Potassium Phosphate 30 mmol/ 260 mls @ 42 mls/hr 05/13/18 09:33 05/16/18 01: 08 Sodium Chloride IV.SIG Infused UNSCH PRN Infusion SEE LABEL COMMENTS Sodium Phosphate 30 mmol/ 260 mls @ 42 mls/hr 05/13/18 09:33 05/17/18 00:47 Sodium Chloride IV.SIG 42 mls/hr UNSCH PRN Administration For Phosphorus < 2.5 mg/dL Dextrose 500 mls @ 50 mls/hr 05/16/18 19:00 05/17/18 04:07 D10w Inj IV.SIG 50 mls/hr .Q10H WENDI Administration Sodium Chloride 250 mls @ 15 mls/hr 05/17/18 11:00 05/17/18 11:39 Ns Inj IV.SIG 05/18/18 03:39 Not Given ONCE WENDI Insulin Aspart 0 unit 05/16/18 12:00 05/17/18 11:39 Novolog Insulin Correctional Sugar Inj SQ Not Given ACHS WENDI Protocol Lorazepam 1 mg 05/11/18 21:00 05/12/18 13:51 Ativan PO Not Given BID WENDI Metoprolol Tartrate 25 mg 05/12/18 09:00 05/12/18 09:23 Lopressor PO Not Given DAILY WENDI Ondansetron HCl 8 mg 05/11/18 14:08 05/12/18 09:24 Zofran Inj IV.PUSH 8 mg Q8H PRN Administration VOMITING Pantoprazole Sodium 40 mg 05/16/18 09:00 05/17/18 08:27 Protonix PO 40 mg DAILY WENDI Administration Pramipexole Dihydrochloride 1 mg 05/11/18 21:00 05/16/18 21:07 Mirapex PO 1 mg HS WENDI Administration Sodium Chloride 2 ml 05/11/18 09:37 05/11/18 14:27 Ns Flush IV.FLUSH 2 ml PRN PRN Administration FLUSH AFTER USING IV ACCESS Vancomycin HCl 500 mg 05/12/18 18:00 05/17/18 08:27 Vancomycin Po PO 500 mg QID WENDI Administration Objective Remarks: GENERAL: Obese older female resting in bed in no obvious distress SKIN: Warm and dry. HEAD: Normocephalic. EYES: No scleral icterus. No injection or drainage. NECK: Supple, trachea midline. No JVD or lymphadenopathy. CARDIOVASCULAR: Regular rate and rhythm without murmurs. RESPIRATORY: Clear anteriorly. Breathing unlabored at rest. GASTROINTESTINAL: Abdomen soft and nontender. Rectal bag with dark, green colored liquid stool noted EXTREMITIES: SCDs to bilateral lower extremities. MUSCULOSKELETAL: Generalized weakness NEUROLOGICAL: Asleep on approach but awakens easily to verbal stimuli. Moving all extremities. No obvious focal deficit. Assessment/Plan (1) Sepsis Code(s): A41.9 - Sepsis, unspecified organism Status: Acute (2) Metastatic breast cancer Code(s): C50.919 - Malignant neoplasm of unspecified site of unspecified female breast Status: Chronic (3) C. difficile colitis Code(s): A04.72 - Enterocolitis due to Clostridium difficile, not specified as recurrent Status: Acute - Plan Ms. Sellers is a 68-year-old female with a diagnosis of metastatic breast carcinoma, she has extensive skeletal metastases and had been on palliative systemic therapy with single agent Taxol. Over the past 3 weeks she had been hospitalized and then [facility], she had been treated in the recent past with levofloxacin for management of a urinary tract infection. She subsequently developed diarrhea and subsequent sepsis. She presented to this hospital with confusion, lethargy and difficulty breathing. She was also noted to be in acute renal failure. Over the past 48 hours she has been aggressively resuscitated and has been treated with appropriate antibiotics with improvement in her cognition, improved hemodynamic parameters and improve renal function. Plan: 1. Severe sepsis with septic shock and lactic acidosis: Patient on antibiotics with Dificid, IV Zosyn and oral vancomycin. She remains afebrile. 2. Treatment for her metastatic breast cancer on hold 3. She is no longer neutropenic. Anticipate her counts will continue to recover as she gets farther away from her last chemotherapy. 4. Once she is out of the ICU we will consult IR for port study. (1) Sepsis Qualifiers: Sepsis type: sepsis due to unspecified organism Qualified Code(s): A41.9 - Sepsis, unspecified organism
--- NOTE | 2018-05-17 13:30 | P.PNCC ---
Subjective Subjective Remarks/Hospital Course: Patient is a 68-year-old female with history of metastatic breast cancer currently undergoing chemotherapy by Dr. Zuñiga, last dose of chemotherapy on Monday, history of psoriatic arthritis who presented to the presentation was emergency department with nausea, vomiting and diarrhea of about 24 hour duration prior to presentation. [facility] having [facility] and the physician there started on Levaquin. WBC count on 3.3 with 18% bands. Her creatinine was slightly elevated at 1.2. Stool studies revealed she was positive for C. difficile and also positive for Epid 027, for which she was receiving p.o. Flagyl. Patient also receiving broad-spectrum antibiotics with IV vancomycin and IV Zosyn for right upper lobe pneumonia on chest x-ray, and probable acute pyelonephritis. Today patient was found to be increasingly confused lethargic more tachycardic and hypotensive. Patient was given 1 L normal saline fluid bolus. With concern for worsening sepsis patient was moved to the ICU and critical care medicine was consulted. I immediately evaluated the patient she is tachycardic very lethargic but wakes up to stimulation. She has extensive skin mottling problem most likely from severe sepsis. Her CT abdomen pelvis yesterday was unremarkable other than pyelonephritis, abdominal exam shows only mild tenderness. However ABG shows a pH of 7.43, PCO2 15.3, PO2 56 and base excess of -14. CBC CMP lactic acid is pending at this time. I have discussed the case with Dr. Gonzalez from GI. Discontinue p.o. Flagyl, discontinue IV vancomycin. I will start her on Dificid and p.o. vancomycin. Continue aggressive fluid resuscitation, change maintenance fluid to bicarbonate infusion. Repeat CT of the abdomen pelvis due to severe acidosis. Her prognosis is guarded given her age, immunosuppressed state metastatic cancer and severe C. difficile. 05/13: Remains critical but mentation is slightly improved. Remains tachycardic in 120s. Creatinine now 1.8. Lactic acid 3.9. Will give additional fluid bolus. Started on po Dificid and p.o. vancomycin yesterday via OG tube. There is no evidence of toxic megacolon at this time but wit the elevated creatinine patient has severe C. difficile colitis 05/14 Patient is lying in bed in NAD. Afebrile. Lactic acid trending down 3.2 yesterday. Renal function is improving with Cr: 0.95 this morning. 05/15: Resting in bed in no acute distress. Heart rate less than 100. Noted CT abdomen/pelvis revealed colitis/mild transverse colon. Tolerating diet. Wishes to get out of bed. 05/16: Afebrile. Currently on room air. Tolerating diet. Hypoglycemic same. Replacing potassium, calcium and phosphorus. Appears comfortable. SUBJECTIVE: 05/17: Blood sugars have stabilized on D10 at 50 cc an hour. Poor diet. Currently clears. Replacing magnesium potassium and calcium today. Appears comfortable. Objective Vital Signs / I&O: Vital Signs 05/16/18 14:00 05/16/18 14:35 05/16/18 15:00 Temperature Pulse Rate 92 H 92 H 91 H Respiratory Rate 41 H 18 19 Blood Pressure 127/87 122/57 L Pulse Oximetry 100 99 05/16/18 16:00 05/16/18 17:00 05/16/18 17:05 Temperature 97.7 F Pulse Rate 91 H 93 H 92 H Respiratory Rate 41 H 38 H 32 H Blood Pressure 132/58 L 137/63 Pulse Oximetry 100 93 L 98 05/16/18 18:00 05/16/18 19:00 05/16/18 20:00 Temperature 97.6 F Pulse Rate 90 100 H 88 Respiratory Rate 24 27 H 30 H Blood Pressure 133/60 Pulse Oximetry 99 85 L 84 L 05/16/18 20:15 05/16/18 21:00 05/16/18 21:14 Temperature Pulse Rate 84 90 97 H Respiratory Rate 20 35 H 28 H Blood Pressure 133/60 Pulse Oximetry 93 L 100 99 05/16/18 22:00 05/16/18 22:01 05/16/18 23:00 Temperature Pulse Rate 89 93 H 84 Respiratory Rate 29 H 29 H 36 H Blood Pressure 124/60 Pulse Oximetry 77 L 93 L 100 05/16/18 23:01 05/17/18 00:00 05/17/18 00:01 Temperature 97.8 F Pulse Rate 89 90 93 H Respiratory Rate 33 H 36 H 38 H Blood Pressure 143/60 H 114/57 L 114/57 L Pulse Oximetry 100 98 99 05/17/18 01:00 05/17/18 02:00 05/17/18 02:01 Temperature Pulse Rate 85 85 86 Respiratory Rate 23 21 19 Blood Pressure 128/57 L 124/56 L Pulse Oximetry 95 100 100 05/17/18 03:00 05/17/18 04:00 05/17/18 05:00 Temperature 97.6 F Pulse Rate 86 87 85 Respiratory Rate 21 23 27 H Blood Pressure 134/61 115/56 L 122/57 L Pulse Oximetry 100 99 100 05/17/18 06:00 05/17/18 07:00 05/17/18 08:00 Temperature Pulse Rate 90 93 H 88 Respiratory Rate 25 H 35 H 37 H Blood Pressure 127/66 135/61 131/57 L Pulse Oximetry 98 100 100 05/17/18 08:18 05/17/18 08:19 05/17/18 09:00 Temperature 98.7 F Pulse Rate 97 H 82 Respiratory Rate 18 28 H Blood Pressure 120/58 L Pulse Oximetry 100 100 05/17/18 10:00 05/17/18 12:36 Temperature Pulse Rate 93 H 91 H Respiratory Rate 22 22 Blood Pressure 129/91 H Pulse Oximetry 99 Intake & Output 05/16/18 05/17/18 05/17/18 18:59 06:59 18:59 Intake Total 1525 / 1525 1440 / 1440 100 / 100 Output Total 900 / 900 1000 / 1000 Balance 625 / 625 440 / 440 100 / 100 Weight 116.3 kg Intake: IV 1200 / 1200 960 / 960 100 / 100 D5W Inj 1,000 ML @ 30 mls/hr IV 1000 / 1000 .CONT .Q24H [facility] Rx#:[id number] D10W Inj 500 ML @ 50 mls/hr IV. 500 / 500 SIG .Q10H [facility] Rx#:[id number] Zosyn 4.5 GM Premix 4.5 gm In 200 / 200 200 / 200 100 / 100 100 ml @ 200 mls/hr IV.SIG Q6H [facility] Rx#:[id number] Potassium Phosphate Inj 30 MMOL 260 / 260 In NS Inj 250 ML @ 43.333 mls/ hr IV.SIG ONCE ONE Rx#:[id number] Oral 325 / 325 480 / 480 Output: Urine 700 / 700 Stool 300 / 300 300 / 300 Urine Amount (Catheter) 600 / 600 Female External 600 / 600 Other: # Voids 1 # Incontinent Voids 1 Date of Last Bowel Movement 08/0805/16/18 05/16/18 # Incontinent Bowel Movements 1 Result Diagrams: 05/17/18 09:38 05/17/18 09:38 Other Results: Microbiology 05/12/18 15:32 Blood - Line Aerobic Blood Culture - Final No growth in 5 days 05/12/18 15:32 Blood - Line Anaerobic Blood Culture - Final No growth in 5 days 05/12/18 15:25 Blood - Line Aerobic Blood Culture - Final No growth in 5 days 05/12/18 15:25 Blood - Line Anaerobic Blood Culture - Final No growth in 5 days 05/11/18 22:20 Blood - Peripheral Aerobic Blood Culture - Final No growth in 5 days 05/11/18 22:20 Blood - Peripheral Anaerobic Blood Culture - Final QNS - See aerobic report. 05/11/18 19:45 Blood - Peripheral Aerobic Blood Culture - Final No growth in 5 days 05/11/18 19:45 Blood - Peripheral Anaerobic Blood Culture - Final QNS - See aerobic report. 05/12/18 16:00 Urine - Catheterized Urine Streptococcus pneumoniae Antigen ( M - Final Presumptive negative for streptococcus pneumoniae antigen, suggesting no current or recent infection. Infection due to Streptococcus pneumoniae cannot be ruled out since the antigen present in the sample may be below the detection limit of the test. 05/12/18 16:00 Urine - Catheterized Urine Legionella Antigen - Final Presumptive negative for Legionella pneumophila serogroup 1 antigen in urine, suggesting no recent or recurrent infection. Infection due to Legionella cannot be ruled out since other serogroups and species may cause disease, antigen may not be present in urine in early infection, and the level of antigen present in the urine may be below the detection limit of the test. Imaging: Chest X-Ray 05/11/18 00:00 CONCLUSION: Right upper lobe consolidation most characteristic of pneumonia. [id number] in superior vena cava. Chest X-Ray 05/11/18 09:37 CONCLUSION: 1. No acute abnormality or significant interval change. Chest CT 05/12/18 00:00 CONCLUSION: 1. Confluent opacity in the right upper lobe that is new when compared to the prior study 2016. Morphology would favor scarring. There is mild associated bronchiectasis. More acute consolidation is also in the differential diagnosis. Neoplasm would be less likely but is in the differential diagnosis. Recommend a follow-up noncontrast chest CT confirm stability or resolution in 3 months. 2. Minimal nonspecific groundglass opacity in the left upper lobe. The prominent bilateral groundglass opacity seen on prior study of 2017 is not seen on today's study. Head CT 05/12/18 00:00 CONCLUSION: 1. No acute intracranial abnormalities. Stable chronic white matter ischemic changes. . Venous Doppler Study 05/12/18 00:00 CONCLUSION: No evidence of lower extremity DVT on the right or left. Abdomen/Pelvis CT 05/12/18 00:22 CONCLUSION: 1. Abnormal appearance to the left kidney with multiple wedge-shaped areas of decreased enhancement. The findings are characteristic of pyelonephritis with differential considerations of renal infarction, interstitial nephritis, and renal lymphoma. 2. 5 mm calcification in the cecum near the appendiceal orifice could represent an appendicolith. The appendix, however, has a normal size and radiographic appearance. Chest X-Ray 05/12/18 13:35 CONCLUSION: Right upper lobe airspace disease similar to May 3. Abdomen/Pelvis CT 05/12/18 15:00 CONCLUSION: 1. Questionable mild mural thickening of the colon that could indicate a mild colitis, especially transverse colon. 2. Heterogeneous renal parenchymal enhancement not as optimally evaluated as on prior study. Cannot exclude pyelonephritis. 3. Bhagat catheter in decompressed bladder. 4. Hiatal hernia. 5. Moderate coronary calcifications. Abdomen X-Ray 05/12/18 21:10 CONCLUSION: Nasogastric tube in the stomach with the tip at the gastroesophageal junction. Chest X-Ray 05/13/18 06:00 CONCLUSION: Persistent right upper lung opacity/infiltrate. No new findings. Chest X-Ray 05/14/18 06:00 CONCLUSION: Stable masslike opacity right upper lobe measuring 2.5 cm as well as a vague nodular density in the left mid lung identified. Chest X-Ray 05/15/18 06:00 CONCLUSION: Clear lungs. Chest X-Ray 05/16/18 06:00 CONCLUSION: Bilateral parenchymal infiltrates. Objective Remarks: GENERAL: Patient is 68yo female lying in bed in NAD on room air SKIN: Warm and dry. HEAD: Normocephalic. EYES: No scleral icterus. No injection or drainage. NECK: Supple, trachea midline. No JVD or lymphadenopathy. CARDIOVASCULAR: Regular rate and rhythm without murmurs, gallops, or rubs.. Port is clean dry and intact RESPIRATORY: Breath sounds equal bilaterally. No accessory muscle use. GASTROINTESTINAL: Abdomen soft, normoactive bowel sounds, tenderness predominantly in the right upper quadrant MUSCULOSKELETAL: Trace bilateral lower extremity edema. Neuro: Awake and alert. Cranial nerves II through XII grossly intact. Strength is equal and symmetric. Assessment and Plan - Assessment and Plan Plan: ASSESSMENT: Septic shock Toxic metabolic encephalopathy Severe C. difficile colitis/epid 027 positive Acute kidney failure Lactic acidosis Respiratory insufficiency Right upper lobe pneumonia/healthcare associated Acute pyelonephritis Leukopenia secondary to chemotherapy Immunocompromised state Metastatic breast cancer/intralobular stage IV Leukocytosis Anemia Thrombocytopenia Hypocalcemia Hypopotassemia Gastroesophageal reflux disease History of psoriasis/psoriasis arthritis History of restrictive lung disease PLAN: NEURO: -Minimize any sedation. Monitor neuro status -CT of the head negative for acute findings -Acetaminophen 650 every 4 hours as needed fever\ -Tramadol 50 mg every 6 hours as needed RESP: -Continue with oxygen keep sats >92% -Albuterol/ipratropium aerosols every 4 hours/albuterol every 2 hours as needed dyspnea -CT chest 05/12: Confluent opacity in the right upper lobe that is new when compared to the prior study 2016. Morphology would favor scarring. There is mild associated bronchiectasis. More acute consolidation is also in the differential diagnosis. Neoplasm would be less likely but is in the differential diagnosis. Recommend a -Will need repeat CT chest in 4-6 weeks to confirm stability or resolution CV: -Monitor HR and BP keep MAP>65mmHg -Serial lactic acid monitoring till clear. -Continue with IVF -Currently off diltiazem 30 3 times daily. GI: -C. difficile Epid 027 positive -Continue fidaxomicin 200 milligrams twice daily and p.o. vancomycin 500 mg 4 times daily. GI following -Abdominal CT 05/11/18 did not show any evidence of severe colitis or toxic megacolon, but showed some evidence of acute pyelonephritis -Repeat CT without contrast 05/12/2018 mild colitis -Speech eval, start clear liquid diet if ok with GI since 05/13 -Pantoprazole 40 mg po daily. : -Monitor renal function closely. Bhagat catheter. -See pyelonephritis treatment in ID section -Change IVF to D10W@50ml/hr, monitor sodium level ID: -Follow-up blood urine and sputum cultures. Urine Legionella and pneumococcal antigen negative -Continue PO fidaxomicin and p.o. vancomycin for severe C Diff colitis -On Zosyn for possible pneumonia and ? pyelonephritis HEME: -Monitor CBC, coags -Oncology following. ENDO: -Electrolyte replacement per protocol -Sliding scale insulin if needed PROPH: -Bilateral lower extremity SCDs. Lovenox/Protonix LINES: -Utilize peripheral IVs, Mediport, Level 2 Stable from critical care medicine standpoint. We will sign off the [facility]
[2018-05-17] MEDS: Enoxaparin Inj 40 MG/0.4 ML Syringe SQ SCH (14:37)
[2018-05-17] MEDS ORDERED: Mag Sulf 1 gm/100 ml Premix 100 ML IV.SIG ONE (15:00)
[2018-05-17] MEDS ORDERED: Calcium Chloride Inj 1 GM in Dextrose 5% in Water Inj 100 ML IV.SIG ONE ×2 (16:00)
[2018-05-17] MEDS: Mag Sulf 1 gm/100 ml Premix 100 ML IV.SIG SCH ×2 (17:27→22:01)
[2018-05-18] MEDS: Dextrose 10% in Water Inj 500 ML IV.SIG SCH ×3 (04:28→21:37)
[2018-05-18] MEDS: Piperacil/Tazo 4.5 GM Premix 4.5 GM/100 ML BAG IV.SIG SCH ×4 (04:29→21:38)
--- NOTE | 2018-05-18 11:01 | P.PNFP ---
Subjective Interval history: Patient seen and examined at bedside this morning. She continues to look more alert, awake and comfortable every day. Says she feels a lot better today. Denies any symptoms of hypoglycemia overnight. She continues to eat well, stating that she drinks juice and eats Jell-O. Her rectal bag is still draining copious amounts of green liquid stool. She denies any chest pain, shortness of breath, abdominal pain, problems with urination. All questions and concerns were answered at bedside this morning. <Loli Waters - 05/18/18 11:23> Results - Labs Result diagrams: 05/18/18 10:53 05/18/18 10:53 <Chase Childress - 05/18/18 16:13> Abnormal lab results 05/17/18 05/18/18 05/18/18 Range/Units 15:38 10:53 10:53 RBC 3.37 L (4.00-5.30) mil/mm3 Hgb 10.3 L (11.6-15.3) gm/dL Hct 31.4 L (35.0-46.0) % RDW 22.3 H (11.6-17.2) % Band Neuts % (Manual) 9 H (0-6) % Metamyelocytes % (Man) 7 H (0-1) % Promyelocytes % (Man) 4 H (0-0) % Blast Cells % (Manual) 2 H (0-0) % Toxic Granulation 1+ H (None) Ovalocytes 1+ H (None) Chloride 108 H (98-107) meq/L BUN 3 L (7-18) mg/dL Estimated GFR 87 L (>89) mL/min Random Glucose 111 H (74-106) mg/dL Calcium 7.2 L* (8.5-10.1) mg/dL Prot Corrected Calcium 8.2 L (8.5-10.1) mg/dL Phosphorus 2.4 L 1.4 L D (2.5-4.9) mg/dL Total Protein 5.3 L (6.4-8.2) g/dL Short CBC 05/18/18 Range/Units 10:53 WBC 9.2 (4.0-11.0) th/mm3 Hgb 10.3 L (11.6-15.3) gm/dL Hct 31.4 L (35.0-46.0) % Plt Count 150 D (150-450) th/mm3 [facility] 05/18/18 10:53 Sodium 140 Potassium 3.9 Chloride 108 H Carbon Dioxide 23.1 BUN 3 L Creatinine 0.68 Calcium 7.2 L* <Chase Childress - 05/18/18 16:13> Abnormal lab results 05/17/18 05/17/18 05/17/18 Range/Units 09:38 09:38 15:38 Metamyelocytes % (Man) 5 H (0-1) % Myelocytes % (Man) 17 H (0-0) % Promyelocytes % (Man) 7 H (0-0) % Nucleated RBCs/100 WBC 2 H (0-0) /100 WBC Platelet Estimate Low L (Normal) Tear Drop Cells 1+ H (None) Ovalocytes 1+ H (None) Keratocytes Occ H (None) Potassium 3.2 L (3.5-5.1) meq/L Chloride 109 H (98-107) meq/L BUN 3 L (7-18) mg/dL Estimated GFR 87 L (>89) mL/min Calcium 6.5 L* (8.5-10.1) mg/dL Prot Corrected Calcium 7.5 L (8.5-10.1) mg/dL Phosphorus 2.4 L (2.5-4.9) mg/dL Alkaline Phosphatase 151 H (45-117) U/L Total Protein 5.0 L (6.4-8.2) g/dL Albumin 1.7 L (3.4-5.0) g/dL [facility] 05/17/18 09:38 Sodium 143 Potassium 3.2 L Chloride 109 H Carbon Dioxide 24.4 BUN 3 L Creatinine 0.68 Calcium 6.5 L* Liver Function 05/17/18 Range/Units 09:38 Total Bilirubin 0.8 (0.2-1.0) mg/dL AST 16 (15-37) U/L ALT 31 (10-53) U/L Alkaline Phosphatase 151 H (45-117) U/L Albumin 1.7 L (3.4-5.0) g/dL <Loli Waters - 05/18/18 11:00> Physical Exam Vital signs: Vital Signs 05/17/18 17:00 05/17/18 18:00 05/17/18 19:00 Temperature Pulse Rate 89 85 91 H Respiratory Rate 46 H 25 H 40 H Blood Pressure 124/56 L 139/66 143/66 H Pulse Oximetry 98 99 99 05/17/18 20:00 05/17/18 20:14 05/17/18 21:00 Temperature 98.1 F Pulse Rate 85 85 92 H Respiratory Rate 34 H 20 24 Blood Pressure 149/69 H 142/59 H Pulse Oximetry 99 98 97 05/17/18 22:00 05/17/18 23:00 05/18/18 00:00 Temperature 98 F Pulse Rate 96 H 90 94 H Respiratory Rate 26 H 31 H 41 H Blood Pressure 149/69 H 155/66 H 132/58 L Pulse Oximetry 100 98 98 05/18/18 00:01 05/18/18 01:00 05/18/18 02:00 Temperature Pulse Rate 91 H 91 H 91 H Respiratory Rate 41 H 35 H 43 H Blood Pressure 132/58 L 128/58 L 128/59 L Pulse Oximetry 99 99 98 05/18/18 03:00 05/18/18 04:00 05/18/18 05:00 Temperature 98.1 F Pulse Rate 90 87 83 Respiratory Rate 38 H 22 30 H Blood Pressure 122/60 135/63 143/66 H Pulse Oximetry 97 99 100 05/18/18 06:00 05/18/18 06:01 05/18/18 07:00 Temperature Pulse Rate 81 84 85 Respiratory Rate 23 19 33 H Blood Pressure 131/60 138/73 Pulse Oximetry 98 100 100 05/18/18 08:00 05/18/18 08:01 05/18/18 09:00 Temperature Pulse Rate 80 78 85 Respiratory Rate 32 H 31 H 27 H Blood Pressure 145/65 H 138/65 Pulse Oximetry 99 100 97 05/18/18 10:00 05/18/18 11:00 05/18/18 11:01 Temperature Pulse Rate 90 87 88 Respiratory Rate 31 H 23 31 H Blood Pressure 146/64 H 126/58 L Pulse Oximetry 99 100 100 05/18/18 12:00 05/18/18 13:00 05/18/18 13:01 Temperature Pulse Rate 86 102 H 99 H Respiratory Rate 30 H 36 H 34 H Blood Pressure 124/63 147/69 H Pulse Oximetry 100 90 L 85 L 05/18/18 14:00 05/18/18 14:01 05/18/18 14:20 Temperature Pulse Rate 86 90 89 Respiratory Rate 23 24 18 Blood Pressure 128/66 Pulse Oximetry 99 100 05/18/18 15:00 05/18/18 16:00 Temperature 98.3 F Pulse Rate 87 91 H Respiratory Rate 20 39 H Blood Pressure 121/61 127/58 L Pulse Oximetry 99 99 Intake & Output 05/17/18 05/18/18 05/18/18 18:59 06:59 18:59 Intake Total 1820 / 1820 1760 / 1760 600 / 600 Output Total 1300 / 1300 300 / 300 Balance 520 / 520 1460 / 1460 600 / 600 Weight 114.5 kg Intake: IV 1100 / 1100 800 / 800 600 / 600 Calcium Chloride Inj 1 GM In 200 / 200 D5W Inj 100 ML @ 110 mls/hr IV. SIG ONCE ONE Rx#:[id number] D10W Inj 500 ML @ 50 mls/hr IV. 500 / 500 500 / 500 500 / 500 SIG .Q10H WILFREDO Rx#:[id number] Magnesium Sulfate 1 gm/D5W 100 200 / 200 100 / 100 ml Premix 100 ML @ 100 mls/hr IV.SIG Q1H WILFREDO Rx#:[id number] Zosyn 4.5 GM Premix 4.5 gm In 200 / 200 200 / 200 100 / 100 100 ml @ 200 mls/hr IV.SIG Q6H WILFREDO Rx#:[id number] Oral 720 / 720 960 / 960 Output: Urine 1000 / 1000 Stool 300 / 300 300 / 300 Other: # Incontinent Voids 3 Date of Last Bowel Movement 05/17/18 05/18/18 05/18/18 <Chase Childress - 05/18/18 16:13> Vital Signs 05/17/18 11:00 05/17/18 12:00 05/17/18 12:01 Temperature Pulse Rate 83 83 91 H Respiratory Rate 19 24 25 H Blood Pressure 145/65 H 130/58 L Pulse Oximetry 100 98 98 05/17/18 12:36 05/17/18 13:00 05/17/18 14:00 Temperature Pulse Rate 91 H 96 H 92 H Respiratory Rate 22 40 H 31 H Blood Pressure 124/58 L 135/63 Pulse Oximetry 99 100 05/17/18 15:00 05/17/18 15:01 05/17/18 16:00 Temperature Pulse Rate 90 99 H 89 Respiratory Rate 33 H 45 H 31 H Blood Pressure 140/65 140/72 Pulse Oximetry 99 99 100 05/17/18 17:00 05/17/18 20:00 05/17/18 20:14 Temperature 98.1 F Pulse Rate 89 85 85 Respiratory Rate 46 H 34 H 20 Blood Pressure 124/56 L 149/69 H Pulse Oximetry 98 99 98 05/18/18 00:00 05/18/18 04:00 05/18/18 07:00 Temperature 98 F 98.1 F Pulse Rate 94 H 87 87 Respiratory Rate 31 H 22 18 Blood Pressure 132/58 L 143/66 H Pulse Oximetry 98 99 Intake & Output 05/17/18 05/18/18 05/18/18 18:59 06:59 18:59 Intake Total 1820 / 1820 1760 / 1760 Output Total 1300 / 1300 300 / 300 Balance 520 / 520 1460 / 1460 Weight 114.5 kg Intake: IV 1100 / 1100 800 / 800 Calcium Chloride Inj 1 GM In 200 / 200 D5W Inj 100 ML @ 110 mls/hr IV. SIG ONCE ONE Rx#:[id number] D10W Inj 500 ML @ 50 mls/hr IV. 500 / 500 500 / 500 SIG .Q10H WILFREDO Rx#:[id number] Magnesium Sulfate 1 gm/D5W 100 200 / 200 100 / 100 ml Premix 100 ML @ 100 mls/hr IV.SIG Q1H [facility]ILFREDO Rx#:[id number] Zosyn 4.5 GM Premix 4.5 gm In 200 / 200 200 / 200 100 ml @ 200 mls/hr IV.SIG Q6H WILFREDO Rx#:[id number] Oral 720 / 720 960 / 960 Output: Urine 1000 / 1000 Stool 300 / 300 300 / 300 Other: # Incontinent Voids 3 Date of Last Bowel Movement 05/17/18 05/18/18 <Loli Waters - 05/18/18 11:00> - Constitutional no acute distress <Loli Waters - 05/18/18 11:00> - Routine HEENT Exam Head: Present: normocephalic, atraumatic <Loli Waters - 05/18/18 11:00> - Routine Respiratory Exam Present: CTA bilaterally <EvelinLoli 05/18/18 11:00> Comments: Anterior auscultation only. <Loli Waters 05/18/18 11:00> - Routine Cardiovascular Exam Present: RRR, S1, S2. Absent: murmur, gallop <EvelinLoli 05/18/18 11:00 > - Routine Abdominal Exam Present: soft, normoactive bowel sounds. Absent: tenderness, distended <EvelinLoli 05/18/18 11:00> - Routine Neurological Exam Present: alert <EvelinLoli 05/18/18 11:00> - Detailed Neurological Exam: Coma Scale Eye Opening: Spontaneous <Loli Waters 05/18/18 11:00> Verbal Response: Oriented <Loli Waters 05/18/18 11:00> Motor Response: Obey commands <Loli Waters 05/18/18 11:00> Maria Luz Coma Scale Total: 15 <EvelinLoli 05/18/18 11:23> - Urinary Catheter Management Female External Cath placed during this visit: no <Chase Childress 05/18/18 16:13> no <Loli Waters 05/18/18 11:23> Indwelling Urethral Catheter Cath placed during this visit: no <Chase Childress 05/18/18 16:13> yes, but has since been removed by the nurse <Loli Waters 05/18/18 11:23> Reason for continuing: Continue criteria not met <Loli Waters 05/18/18 11 :00> Insertion date: 05/12/18 <Loli Waters 05/18/18 11:00> Insertion time: 15:00 <Loli Waters 05/18/18 11:00> Removal date: 05/14/18 <Loli Waters 05/18/18 11:00> Removal time: 17:28 <Loli Waters 05/18/18 11:00> Assessment and Plan - Assessment (1) C. difficile colitis Code(s): A04.72 - Enterocolitis due to Clostridium difficile, not specified as recurrent Status: Acute (2) Cytopenia Code(s): D75.9 - Disease of blood and blood-forming organs, unspecified Status : Acute (3) Hypokalemia Code(s): E87.6 - Hypokalemia Status: Acute (4) Pneumonia Code(s): J18.9 - Pneumonia, unspecified organism Status: Acute (5) SIRS (systemic inflammatory response syndrome) Code(s): R65.10 - Systemic inflammatory response syndrome (SIRS) of non- infectious origin without acute organ dysfunction Status: Acute (6) Pyelonephritis Code(s): N12 - Tubulo-interstitial nephritis, not specified as acute or chronic Status: Acute (7) Tachycardia Code(s): R00.0 - Tachycardia, unspecified Status: Acute (8) MARIELA (acute kidney injury) Code(s): N17.9 - Acute kidney failure, unspecified Status: Acute (9) Metastatic breast cancer Code(s): C50.919 - Malignant neoplasm of unspecified site of unspecified female breast Status: Chronic (10) Nutrition, metabolism, and development symptoms Code(s): R63.8 - Other symptoms and signs concerning food and fluid intake Status: Acute (11) DVT prophylaxis Status: Acute <Chase Childress - 05/18/18 16:13> (1) C. difficile colitis Code(s): A04.72 - Enterocolitis due to Clostridium difficile, not specified as recurrent Status: Acute Plan: C. difficile positive, epit 027 positive. Rectal bag still draining copious amounts of green liquid stool. Patient denies abdominal pain. Dificid and vancomycin p.o (Day 6) Protonix 40 mg IV daily. Zofran 8 mg IV q8 for Nausea Continue to monitor CMP for any electrolyte abnormalities due to vomiting and diarrhea. Follow-up recommendations of GI; - Mild colitis of transverse colon on CT -GI has signed off: Can continue to follow ID recommendations for treatment and have patient follow-up with GI after discharge as an outpatient. -Patient may require stool transfer versus immunotherapy, poor prognosis CT negative 2 for any gallbladder pathology or obstruction mass s/p Flagyl 500 mg p.o. (05/11-05/12) (2) Cytopenia Code(s): D75.9 - Disease of blood and blood-forming organs, unspecified Status : Acute Plan: WBC improved to from 4.6 to 6.9 yesterday, follow-up CBC today Myelosuppression attributed to recent chemotherapy with Taxol, continue to follow-up CBC -Oncology following; may start on Neupogen if neutropenic on consistent labs, will get port study when more stable Continue to follow-up CBCs (3) Hypokalemia Code(s): E87.6 - Hypokalemia Status: Acute Plan: Potassium dropped yesterday from 3.6 to 3.2. Was replaced with 60 mEq of potassium. Follow-up CMP today. Will replace if needed. (4) Pneumonia Code(s): J18.9 - Pneumonia, unspecified organism Status: Acute Plan: Patient states that her cough has gotten better today, ID following, treating for pneumonia as follows Continue treatment for nosocomial pneumonia, usp related Continue IV Zosyn for PNA x 7 days as above, On PO Vanc for C. Diff Continue Flonase nasal spray Continue duo nebs scheduled every 4 hours Patient doing incentive spirometer Patient currently on 1-2 L nasal cannula of oxygen and saturating well, will consider weaning off of oxygen. Chest x-ray 05/16: Bilateral parenchymal infiltrates Chest x-ray 05/12: No change Chest x-ray 05/11: Right upper lobe consolidation most characteristic of pneumonia (5) SIRS (systemic inflammatory response syndrome) Code(s): R65.10 - Systemic inflammatory response syndrome (SIRS) of non- infectious origin without acute organ dysfunction Status: Acute Plan: Resolved On 05/12: Signs of severe sepsis with altered mental status, tachycardia, hypotension, skin mottling Transferred to ICU on 05/12 at 1400, with NG tube placement and GI management of severe resistant C. difficile. Possible source of sepsis includes pneumonia, C. difficile colitis, bacteremia IV Vanc, Zosyn, and PO Flagyl (05/11-05/12) Per consult with ID, GI and Critical Care MD, Continue on IV Zosyn, with PO Vanc and PO Dificid (05/12 - ) Chest x-ray 05/13-05/14 shows right upper lobe opacity, CXR clear of opacity today Repeat CT abdomen showed no change, possible pyelonephritis (ID dw with rads and likely not pyelo), possible mild colitis of transverse colon Venous Doppler negative, low suspicion for PE at this time given improvement with IV fluids and NG tube placement Blood cultures negative 2 day WBC stable Pending CBC, CMP today, problems with IV access ID recommendation; Cont Zosyn x 7 days (05/12 -05/19) to cover for PNA On admission HR:143, RR:28, Bands: 18. Meets 3 out of 5 SIRS criteria. Unknown source of infection. Vancomycin and Zosyn added empirically for coverage. UA and Culture ordered. UA negative, f/u uCx Chest Xray: Right upper lobe consolidation CT of abdomen x 2; probable pyelonephritis as above, versus interstitial nephritis versus renal infarction versus renal lymphoma. 5 mm calcification could represent appendicolith Lipase negative Follow-up sputum culture. Urine strep pneumo antigen and Legionella antigens negative (6) Pyelonephritis Code(s): N12 - Tubulo-interstitial nephritis, not specified as acute or chronic Status: Acute Plan: Possible pyelonephritis on CT versus renal infarction ID discussed w RADS, likely not pyelo (7) Tachycardia Code(s): R00.0 - Tachycardia, unspecified Status: Acute Plan: Resolved with treatment for severe sepsis; due to C. difficile colitis versus pneumonia Heart rate over the last 24 hours: 87-99 Patient is no longer receiving diltiazem for tachycardia Continue to hold home metoprolol 25 mg daily for 1-2 more days until we are sure BP is stable (8) MARIELA (acute kidney injury) Code(s): N17.9 - Acute kidney failure, unspecified Status: Acute Plan: Resolved on 05/14. Cr yesterday 0.68. Follow up CMP. likely due to CT 2 on 05/12, creatinine 1.81 Caution with IV contrast, nephrotoxins, NSAIDs Cr: 1.19 on admission. Baseline: 0.67 Possibly due to dehydration due to vomiting and diarrhea Continue rehydration with fluids. (9) Metastatic breast cancer Code(s): C50.919 - Malignant neoplasm of unspecified site of unspecified female breast Status: Chronic Plan: Currently followed by Dr. Zuñiga, oncology. Spoke with Dr. Ayers, follow-up with Dr. Zuñiga CT of abdomen with contrast: no additional tumors revealed CT head w/ and w/out IV contrast: No evidence of brain metastases. Stable chronic white matter ischemic changes Continue to treat for infxn Oncology consulted. Appreciate recommendations. (10) Nutrition, metabolism, and development symptoms Code(s): R63.8 - Other symptoms and signs concerning food and fluid intake Status: Acute Plan: Fluids: clear liquids, f/u with speech therapy to re-eval possibly advancing diet Electrolytes: Monitor and Replete as needed, watching low glucose and low calcium Diet: soft diet (11) DVT prophylaxis Status: Acute Plan: Lovenox 40 subcu daily <Loli Waters - 05/18/18 11:22> - Assessment and Plan 68-year-old female currently undergoing chemotherapy for metastatic breast cancer , and severe sepsis with excessive tachycardia, vomiting and diarrhea, and pneumonia, C. difficile positive with pyelonephritis on CT. <Loli Waters - 05/18/18 11:00> Discharge Planning: Plan for discharge once patient becomes clinically stable and oncology suggest recommendations. <Loli Waters - 05/18/18 11:00> - Attending Attestation The exam, history, and the medical decision-making described in the above note were completed with the assistance of the resident physician. I reviewed and agree with the findings presented. I attest that I had a [id number] encounter with the patient on the same day, and personally performed and documented my assessment and findings in the medical record.Viv WILDER <Chase Childress - 05/18/18 16:13>
[2018-05-18 11:06] LABS: Hematocrit 31.4 % (35.0-46.0); Hemoglobin 10.3 gm/dL (11.6-15.3); Mean Corpuscular Hemoglobin 30.6 pg (27.0-34.0); Mean Corpuscular Volume 92.9 fL (80.0-100.0); Mean Platelet Volume 10.1 fL (7.0-11.0); Platelet Count 150 th/mm3 (150-450); Red Blood Count 3.37 mil/mm3 (4.00-5.30); Red Cell Distribution Width 22.3 % (11.6-17.2); White Blood Count 9.2 th/mm3 (4.0-11.0)
[2018-05-18 11:30] LABS: Calcium 7.2 mg/dL (8.5-10.1); Carbon Dioxide 23.1 meq/L (21.0-32.0); Magnesium 2.2 mg/dL (1.5-2.5); Phosphorus 1.4 mg/dL (2.5-4.9); Potassium 3.9 meq/L (3.5-5.1)
[2018-05-18] MEDS: Insulin NovoLOG Aspart Correctional Sugar Inj SQ SCH ×4 (11:34→21:38)
[2018-05-18 11:42] LABS: Total Protein 5.3 g/dL (6.4-8.2)
[2018-05-18 11:49] LABS: Blast Cells 2 % (0-0); Lymphocytes 13 % (9-44); Metamyelocytes 7 % (0-1); Monocytes 7 % (0-8); Promyelocyte 4 % (0-0)
[2018-05-18 11:51] LABS: Platelet Estimate Normal (Normal); Platelet Morphology Normal (Normal); Toxic Granulation 1+
[2018-05-18 11:52] LABS: Ovalocytes 1+
[2018-05-18] MEDS: Potassium Phosphate 500 MG Soluble Tablet PO PRN ×2 (12:37→17:11)
--- NOTE | 2018-05-18 14:53 | P.DIET ---
Nutritional Evaluation Type of nutrition evaluation: follow-up Nutrition screening: Weight Loss > 10 lbs Subjective Subjective Comments: Poor Appetite. Pt admitted w/nausea, vomiting, diarrhea Objective - Diagnosis Persistent Tachycardia, N/V/D, general weakness - Objective [place] body weight: 65.9 kg % IBW: 171 Body Weight Used for Calculations: IBW Energy Needs - Lower Range (kCal/kg): 28 Energy Needs - Upper Range (kCal/kg): 33 Lower Limit kCal/kg (kCals): 1,845 Upper Limit kCal/kg (kCals): 2,175 Lower Limit Protein Factor (Grams per Kg): 1.5 Upper Limit Protein Factor (Grams per Kg): 1.8 Lower Protein Needs (Protein): 99 Upper Protein Needs (Protein): 119 Dietitian Reviewed in Medical Record: Current diet, Curent medications, Intake & Output, Labs, Medical history Diet Order: Cardiac [facility] soft Speech Therapy Recommendations: Yes Objective Comments: PMH Includes: Invasive lobular carcinoma of Breast, stage 4; metastasis from breast cancer-currently undergoing chemotherapy; GERD, Psoriasis, Psoriatic Arthritis, Restrictive Lung Disease positive C-Diff Assessment Assessment: Pt is at high nutrition risk r/t recent unintentional wt loss, diagnosis and clinical status. Pt sleeping at time of visit. Pt currently on [facility] soft diet, po intake varies from refusing trays to 75% of meal. Adequate po intake not yet established. Will continue to monitor Clinical Course. Recommendations: Cardiac [facility] Soft Diet Dietitian to Monitor: Lab values, Electrolytes, Renal labs, Intake & Output, Diet tolerance, Weight change, PO Intake, Medical course
[2018-05-18] MEDS: Enoxaparin Inj 40 MG/0.4 ML Syringe SQ SCH (15:42)
--- NOTE | 2018-05-18 19:59 | P.PNID ---
Subjective Remarks: afebrile cont to have heavy liquid diarrhea WBC recovering with prominent L shift Antibiotics: IV zosyn vanco po dificid Allergies/Adverse Reactions: Allergies hydromorphone [From Dilaudid] Adverse Reaction (Intermediate, Verified 05/11/18 10:38) Dizziness Objective Vital Signs 05/17/18 20:00 05/17/18 20:14 05/17/18 21:00 Temperature 98.1 F Pulse Rate 85 85 92 H Respiratory Rate 34 H 20 24 Blood Pressure 149/69 H 142/59 H Pulse Oximetry 99 98 97 05/17/18 22:00 05/17/18 23:00 05/18/18 00:00 Temperature 98 F Pulse Rate 96 H 90 94 H Respiratory Rate 26 H 31 H 41 H Blood Pressure 149/69 H 155/66 H 132/58 L Pulse Oximetry 100 98 98 05/18/18 00:01 05/18/18 01:00 05/18/18 02:00 Temperature Pulse Rate 91 H 91 H 91 H Respiratory Rate 41 H 35 H 43 H Blood Pressure 132/58 L 128/58 L 128/59 L Pulse Oximetry 99 99 98 05/18/18 03:00 05/18/18 04:00 05/18/18 05:00 Temperature 98.1 F Pulse Rate 90 87 83 Respiratory Rate 38 H 22 30 H Blood Pressure 122/60 135/63 143/66 H Pulse Oximetry 97 99 100 05/18/18 06:00 05/18/18 06:01 05/18/18 07:00 Temperature Pulse Rate 81 84 85 Respiratory Rate 23 19 33 H Blood Pressure 131/60 138/73 Pulse Oximetry 98 100 100 05/18/18 08:00 05/18/18 08:01 05/18/18 09:00 Temperature Pulse Rate 80 78 85 Respiratory Rate 32 H 31 H 27 H Blood Pressure 145/65 H 138/65 Pulse Oximetry 99 100 97 05/18/18 10:00 05/18/18 11:00 05/18/18 11:01 Temperature Pulse Rate 90 87 88 Respiratory Rate 31 H 23 31 H Blood Pressure 146/64 H 126/58 L Pulse Oximetry 99 100 100 05/18/18 12:00 05/18/18 13:00 05/18/18 13:01 Temperature Pulse Rate 86 102 H 99 H Respiratory Rate 30 H 36 H 34 H Blood Pressure 124/63 147/69 H Pulse Oximetry 100 90 L 85 L 05/18/18 14:00 05/18/18 14:01 05/18/18 14:20 Temperature Pulse Rate 86 90 89 Respiratory Rate 23 24 18 Blood Pressure 128/66 Pulse Oximetry 99 100 05/18/18 15:00 05/18/18 16:00 05/18/18 17:00 Temperature 97.9 F Pulse Rate 87 91 H 93 H Respiratory Rate 20 39 H 35 H Blood Pressure 121/61 127/58 L 136/62 Pulse Oximetry 99 99 100 Intake & Output 05/18/18 05/18/18 05/19/18 06:59 18:59 06:59 Intake Total 1760 / 1760 1180 / 1180 Output Total 300 / 300 1500 / 1500 Balance 1460 / 1460 -320 / -320 Weight 114.5 kg Intake: IV 800 / 800 700 / 700 D10W Inj 500 ML @ 50 mls/hr IV. 500 / 500 500 / 500 SIG .Q10H [facility] Rx#:[id number] Magnesium Sulfate 1 gm/D5W 100 100 / 100 ml Premix 100 ML @ 100 mls/hr IV.SIG Q1H [facility] Rx#:[id number] Zosyn 4.5 GM Premix 4.5 gm In 200 / 200 200 / 200 100 ml @ 200 mls/hr IV.SIG Q6H [facility] Rx#:[id number] Oral 960 / 960 480 / 480 Output: Urine 1400 / 1400 Stool 300 / 300 100 / 100 Other: # Incontinent Voids 3 Date of Last Bowel Movement 05/18/18 05/18/18 05/12/18 15:32 Blood - Line Aerobic Blood Culture - Final No growth in 5 days 05/12/18 15:32 Blood - Line Anaerobic Blood Culture - Final No growth in 5 days 05/12/18 15:25 Blood - Line Aerobic Blood Culture - Final No growth in 5 days 05/12/18 15:25 Blood - Line Anaerobic Blood Culture - Final No growth in 5 days 05/11/18 22:20 Blood - Peripheral Aerobic Blood Culture - Final No growth in 5 days 05/11/18 22:20 Blood - Peripheral Anaerobic Blood Culture - Final QNS - See aerobic report. 05/11/18 19:45 Blood - Peripheral Aerobic Blood Culture - Final No growth in 5 days 05/11/18 19:45 Blood - Peripheral Anaerobic Blood Culture - Final QNS - See aerobic report. Lab - Hematology Results 05/17/18 05/18/18 09:38 10:53 WBC 6.9 9.2 RBC 3.31 L 3.37 L Hgb 10.2 L 10.3 L Hct 30.7 L 31.4 L MCV 92.7 92.9 MCH 30.7 30.6 MCHC 33.1 33.0 RDW 22.4 H 22.3 H Plt Count 115 L 150 D MPV 9.9 10.1 Prelim Diff (Auto) Manual diff required Manual diff required WBC Differential Manual diff final Manual diff final Seg Neuts % (Manual) 58 57 Band Neuts % (Manual) 2 9 H Lymphocytes % (Manual) 9 13 Monocytes % (Manual) 2 7 Basophils % (Manual) 1 Metamyelocytes % (Man) 5 H 7 H Myelocytes % (Man) 17 H Promyelocytes % (Man) 7 H 4 H Blast Cells % (Manual) 2 H Abs Neuts (Manual) 6.1 7.1 Nucleated RBCs/100 WBC 2 H Differential Comment . . Toxic Granulation 1+ H Platelet Estimate Low L Normal Platelet Morphology Normal Normal Tear Drop Cells 1+ H Ovalocytes 1+ H 1+ H Keratocytes Occ H Lab - Chemistry Results 05/16/18 05/16/18 05/17/18 20:58 21:45 09:38 Sodium 143 Potassium 3.6 3.2 L Chloride 109 H Carbon Dioxide 24.4 Anion Gap 10 BUN 3 L Creatinine 0.68 Estimated GFR 87 L POC Glucose 84 Random Glucose 76 Calcium 6.5 L* Prot Corrected Calcium 7.5 L Phosphorus 1.7 L 2.8 D Magnesium 1.5 Total Bilirubin 0.8 AST 16 ALT 31 Alkaline Phosphatase 151 H Total Protein 5.0 L Albumin 1.7 L 05/17/18 05/17/18 05/17/18 11:33 15:38 17:24 Sodium Potassium Chloride Carbon Dioxide Anion Gap BUN Creatinine Estimated GFR POC Glucose 87 93 Random Glucose Calcium Prot Corrected Calcium Phosphorus 2.4 L Magnesium Total Bilirubin AST ALT Alkaline Phosphatase Total Protein Albumin 05/17/18 05/18/18 05/18/18 21:45 10:53 17:07 Sodium 140 Potassium 3.9 Chloride 108 H Carbon Dioxide 23.1 Anion Gap 9 BUN 3 L Creatinine 0.68 Estimated GFR 87 L POC Glucose 72 425 H Random Glucose 111 H Calcium 7.2 L* Prot Corrected Calcium 8.2 L Phosphorus 1.4 L D Magnesium 2.2 D Total Bilirubin AST ALT Alkaline Phosphatase Total Protein 5.3 L Albumin 05/18/18 17:08 Sodium Potassium Chloride Carbon Dioxide Anion Gap BUN Creatinine Estimated GFR POC Glucose 138 H Random Glucose Calcium Prot Corrected Calcium Phosphorus Magnesium Total Bilirubin AST ALT Alkaline Phosphatase Total Protein Albumin Imaging: ITS Impressions Chest CT 05/12/18 00:00 CONCLUSION: 1. Confluent opacity in the right upper lobe that is new when compared to the prior study 2016. Morphology would favor scarring. There is mild associated bronchiectasis. More acute consolidation is also in the differential diagnosis. Neoplasm would be less likely but is in the differential diagnosis. Recommend a follow-up noncontrast chest CT confirm stability or resolution in 3 months. 2. Minimal nonspecific groundglass opacity in the left upper lobe. The prominent bilateral groundglass opacity seen on prior study of 2017 is not seen on today's study. Head CT 05/12/18 00:00 CONCLUSION: 1. No acute intracranial abnormalities. Stable chronic white matter ischemic changes. . Venous Doppler Study 05/12/18 00:00 CONCLUSION: No evidence of lower extremity DVT on the right or left. Abdomen/Pelvis CT 05/12/18 15:00 CONCLUSION: 1. Questionable mild mural thickening of the colon that could indicate a mild colitis, especially transverse colon. 2. Heterogeneous renal parenchymal enhancement not as optimally evaluated as on prior study. Cannot exclude pyelonephritis. 3. Bhagat catheter in decompressed bladder. 4. Hiatal hernia. 5. Moderate coronary calcifications. Abdomen X-Ray 05/12/18 21:10 CONCLUSION: Nasogastric tube in the stomach with the tip at the gastroesophageal junction. Chest X-Ray 05/16/18 06:00 CONCLUSION: Bilateral parenchymal infiltrates. Physical Exam: GENERAL: NAD SKIN: Warm and dry. HEAD: Atraumatic. Normocephalic. EYES: Pupils equal and round. No scleral icterus. No injection or drainage. ENT: No nasal bleeding or discharge. Mucous membranes pink and moist. NECK: Trachea midline. No JVD. CARDIOVASCULAR: Regular rate and rhythm. RESPIRATORY: No accessory muscle use. Few scattered rhonchi to auscultation. Breath sounds equally diminished bilaterally. GASTROINTESTINAL: Abdomen soft, non-tender, moderately distended. Hepatic and splenic margins not palpable. MUSCULOSKELETAL: Extremities without clubbing, cyanosis, or edema. No obvious deformities. well prefused hands and feet NEUROLOGICAL: Awake and alert. No obvious cranial nerve deficits. Motor grossly within normal limits. Five out of 5 muscle strength in the arms and legs. Normal speech. PSYCHIATRIC: Appropriate mood and affect; insight and judgment normal. Assessment and Plan - Plan Metastatic breadst Ca sp chemo Mildly cytopenic, liklely suppressed from chemo - improved WBC to 3700 Hypervirulent 027 C.diff Severe sepsis: likely C/diff ? R side pyelo, though UA, clin presntation not cw pyelo PNA, w multilobar with LLL and RUL infiltrates ARF - imnproved with IVF resuscitation cont po vanco cont Dificid cont on zosyn 2/2 PNA chk sputum clx if feasible repeat CXR veronica RN
[2018-05-19] MEDS: Piperacil/Tazo 4.5 GM Premix 4.5 GM/100 ML BAG IV.SIG SCH ×3 (04:50→16:49)
--- NOTE | 2018-05-19 05:52 | XR ---
EXAM DATE: 05/19/2018 5:34 AM EDT AGE/SEX: 68 years / Female INDICATIONS: Shortness of breath, possible pulmonary disease. CLINICAL DATA: This is the patient's subsequent encounter. Patient reports that signs and symptoms h ave been present for 1 week and indicates a pain score of 0/10. MEDICAL/SURGICAL HISTORY: . Carcinoma, breast. Metastatic disease . Mastectomy, left. Total knee replacement, left, Total knee replacement, right, ORIF left femur. COMPARISON: [facility] – [place], CHEST 1V SINGLE AP, 05/16/2018. . FINDINGS: Portable AP view of the chest demonstrates a normal-sized cardiac silhouette. Right chest wall Infuse -a-Port remains present. Airspace opacity in the right upper lobe and left lung base remains present and stable. No pleural effusion or pneumothorax is identified. CONCLUSION: Stable chest x-ray with right upper lobe and left basilar opacity. Electronically signed by: Greg Calderon MD 05/19/2018 5:51 AM EDT
--- NOTE | 2018-05-19 09:04 | P.PNFP ---
Subjective Interval history: Patient was seen and examined at bedside this morning. She continues to look awake, alert, and oriented, engaging in full conversation and responding to commands appropriately. She states that she is feeling a lot better today, she has been removed off of the nasal cannula and is saturating well. She denies any chest pain overnight, shortness of breath, abdominal pain. The rectal bag contains minimal amounts of light green stool, much less than what was appreciated yesterday. She continues to eat and drink well. All other questions and concerns were answered at bedside. <Loli Waters - 05/19/18 09:04> Results - Labs Result diagrams: 05/20/18 06:20 05/20/18 06:20 <Renata Sanchez - 05/20/18 10:48> Abnormal lab results 05/19/18 05/19/18 05/19/18 Range/Units 20:20 20:20 20:20 RBC 3.32 L (4.00-5.30) mil/mm3 Hgb 10.0 L (11.6-15.3) gm/dL Hct 30.8 L (35.0-46.0) % RDW 22.4 H (11.6-17.2) % Plt Count 126 L (150-450) th/mm3 Band Neuts % (Manual) 15 H (0-6) % Lymphocytes % (Manual) 8 L (9-44) % Metamyelocytes % (Man) 6 H (0-1) % Myelocytes % (Man) 1 H (0-0) % Abs Neuts (Manual) 8.2 H (1.8-7.7) th/mm3 Nucleated RBCs/100 WBC 2 H (0-0) /100 WBC Toxic Granulation 3+ H (None) Platelet Estimate Low L (Normal) Platelet Morphology Enlarged H (Normal) Ovalocytes (None) Acanthocytes (Spur) Occ H (None) Carbon Dioxide (21.0-32.0) meq/L BUN 3 L (7-18) mg/dL Estimated GFR 88 L (>89) mL/min Random Glucose 108 H (74-106) mg/dL Calcium 7.2 L* (8.5-10.1) mg/dL Prot Corrected Calcium 8.3 L (8.5-10.1) mg/dL Phosphorus 1.5 L (2.5-4.9) mg/dL Alkaline Phosphatase 204 H (45-117) U/L Total Protein 5.1 L (6.4-8.2) g/dL Albumin 1.6 L (3.4-5.0) g/dL 05/20/18 05/20/18 05/20/18 Range/Units 06:20 06:20 06:20 RBC 3.25 L (4.00-5.30) mil/mm3 Hgb 9.9 L (11.6-15.3) gm/dL Hct 30.2 L (35.0-46.0) % RDW 22.4 H (11.6-17.2) % Plt Count 129 L (150-450) th/mm3 Band Neuts % (Manual) 18 H (0-6) % Lymphocytes % (Manual) 5 L (9-44) % Metamyelocytes % (Man) 14 H (0-1) % Myelocytes % (Man) 6 H (0-0) % Abs Neuts (Manual) 8.5 H (1.8-7.7) th/mm3 Nucleated RBCs/100 WBC 1 H (0-0) /100 WBC Toxic Granulation 1+ H (None) Platelet Estimate Low L (Normal) Platelet Morphology (Normal) Ovalocytes 1+ H (None) Acanthocytes (Spur) (None) Carbon Dioxide 20.0 L (21.0-32.0) meq/L BUN 3 L (7-18) mg/dL Estimated GFR (>89) mL/min Random Glucose (74-106) mg/dL Calcium 7.2 L* (8.5-10.1) mg/dL Prot Corrected Calcium 8.2 L (8.5-10.1) mg/dL Phosphorus 1.9 L (2.5-4.9) mg/dL Alkaline Phosphatase 217 H (45-117) U/L Total Protein 5.2 L (6.4-8.2) g/dL Albumin 1.6 L (3.4-5.0) g/dL Short CBC 05/19/18 05/20/18 Range/Units 20:20 06:20 WBC 9.8 9.4 (4.0-11.0) th/mm3 Hgb 10.0 L 9.9 L (11.6-15.3) gm/dL Hct 30.8 L 30.2 L (35.0-46.0) % Plt Count 126 L 129 L (150-450) th/mm3 BMP 05/19/18 05/20/18 20:20 06:20 Sodium 138 136 Potassium 3.8 3.9 Chloride 107 107 Carbon Dioxide 22.7 20.0 L BUN 3 L 3 L Creatinine 0.67 0.52 Calcium 7.2 L* 7.2 L* Liver Function 05/19/18 05/20/18 Range/Units 20:20 06:20 Total Bilirubin 0.6 0.5 (0.2-1.0) mg/dL AST 18 21 (15-37) U/L ALT 22 22 (10-53) U/L Alkaline Phosphatase 204 H 217 H (45-117) U/L Albumin 1.6 L 1.6 L (3.4-5.0) g/dL <DanielRenata Pratik - 05/20/18 10:48> Abnormal lab results 05/18/18 05/18/18 05/18/18 Range/Units 10:53 10:53 17:07 RBC 3.37 L (4.00-5.30) mil/mm3 Hgb 10.3 L (11.6-15.3) gm/dL Hct 31.4 L (35.0-46.0) % RDW 22.3 H (11.6-17.2) % Band Neuts % (Manual) 9 H (0-6) % Metamyelocytes % (Man) 7 H (0-1) % Promyelocytes % (Man) 4 H (0-0) % Blast Cells % (Manual) 2 H (0-0) % Toxic Granulation 1+ H (None) Ovalocytes 1+ H (None) Chloride 108 H (98-107) meq/L BUN 3 L (7-18) mg/dL Estimated GFR 87 L (>89) mL/min POC Glucose 425 H (68-110) mg/dl Random Glucose 111 H (74-106) mg/dL Calcium 7.2 L* (8.5-10.1) mg/dL Prot Corrected Calcium 8.2 L (8.5-10.1) mg/dL Phosphorus 1.4 L D (2.5-4.9) mg/dL Total Protein 5.3 L (6.4-8.2) g/dL 05/18/18 05/18/18 05/19/18 Range/Units 17:08 21:29 07:44 RBC (4.00-5.30) mil/mm3 Hgb (11.6-15.3) gm/dL Hct (35.0-46.0) % RDW (11.6-17.2) % Band Neuts % (Manual) (0-6) % Metamyelocytes % (Man) (0-1) % Promyelocytes % (Man) (0-0) % Blast Cells % (Manual) (0-0) % Toxic Granulation (None) Ovalocytes (None) Chloride (98-107) meq/L BUN (7-18) mg/dL Estimated GFR (>89) mL/min POC Glucose 138 H 132 H 126 H (68-110) mg/dl Random Glucose (74-106) mg/dL Calcium (8.5-10.1) mg/dL Prot Corrected Calcium (8.5-10.1) mg/dL Phosphorus (2.5-4.9) mg/dL Total Protein (6.4-8.2) g/dL Short CBC 05/18/18 Range/Units 10:53 WBC 9.2 (4.0-11.0) th/mm3 Hgb 10.3 L (11.6-15.3) gm/dL Hct 31.4 L (35.0-46.0) % Plt Count 150 D (150-450) th/mm3 BMP 05/18/18 10:53 Sodium 140 Potassium 3.9 Chloride 108 H Carbon Dioxide 23.1 BUN 3 L Creatinine 0.68 Calcium 7.2 L* <Loli Waters - 05/19/18 09:04> - Imaging Impressions Chest X-Ray 05/19/18 06:00 CONCLUSION: Stable chest x-ray with right upper lobe and left basilar opacity. <Loli Waters - 05/19/18 09:04> Physical Exam Vital signs: Vital Signs 05/19/18 11:00 05/19/18 12:00 05/19/18 12:01 Temperature 97.9 F Pulse Rate 93 H 98 H 103 H Respiratory Rate 24 37 H 31 H Blood Pressure 124/58 L 124/58 L 193/91 H Pulse Oximetry 99 95 83 L 05/19/18 12:03 05/19/18 12:22 05/19/18 13:00 Temperature Pulse Rate 93 H 89 93 H Respiratory Rate 22 21 35 H Blood Pressure 134/61 118/56 L Pulse Oximetry 81 L 93 L 05/19/18 14:00 05/19/18 15:00 05/19/18 15:01 Temperature Pulse Rate 97 H 95 H 98 H Respiratory Rate 40 H 43 H 39 H Blood Pressure 122/68 146/73 H Pulse Oximetry 98 89 L 94 L 05/19/18 16:00 05/19/18 17:00 05/19/18 18:00 Temperature 98.2 F Pulse Rate 97 H 98 H 97 H Respiratory Rate 22 41 H 33 H Blood Pressure 122/74 128/70 132/66 Pulse Oximetry 96 98 80 L 05/19/18 19:00 05/19/18 20:00 05/19/18 20:30 Temperature 100.4 F H Pulse Rate 102 H 102 H Respiratory Rate 26 H 33 H Blood Pressure 125/71 123/63 Pulse Oximetry 95 96 96 05/19/18 21:00 05/19/18 22:00 05/19/18 23:00 Temperature Pulse Rate 103 H 96 H 97 H Respiratory Rate 37 H 30 H 33 H Blood Pressure 140/67 123/73 132/63 Pulse Oximetry 96 93 L 98 05/20/18 00:00 05/20/18 01:31 05/20/18 04:00 Temperature 99.8 F H 99.3 F Pulse Rate 98 H 95 H 96 H Respiratory Rate 40 H 20 38 H Blood Pressure 122/59 L 145/63 H Pulse Oximetry 95 97 05/20/18 07:46 05/20/18 08:00 Temperature 98.7 F Pulse Rate 91 H Respiratory Rate 30 H Blood Pressure 137/65 Pulse Oximetry 96 97 Intake & Output 05/19/18 05/20/18 05/20/18 18:59 06:59 18:59 Intake Total 1700 / 1700 880 / 880 Output Total 1100 / 1100 1350 / 1350 Balance 600 / 600 -470 / -470 Weight 113.5 kg Intake: IV 1100 / 1100 500 / 500 D10W Inj 500 ML @ 50 mls/hr IV. 1000 / 1000 500 / 500 SIG .Q10H [facility] Rx#:[id number] Zosyn 4.5 GM Premix 4.5 gm In 100 / 100 100 ml @ 200 mls/hr IV.SIG Q6H [facility] Rx#:[id number] Oral 600 / 600 380 / 380 Output: Stool 100 / 100 350 / 350 Urine Amount (Catheter) 1000 / 1000 1000 / 1000 Female External 1000 / 1000 1000 / 1000 Other: Date of Last Bowel Movement 05/19/18 05/20/18 05/20/18 <Renata Sanchez - 05/20/18 10:48> Vital Signs 05/18/18 09:00 05/18/18 10:00 05/18/18 11:00 Temperature Pulse Rate 85 90 87 Respiratory Rate 27 H 31 H 23 Blood Pressure 138/65 146/64 H Pulse Oximetry 97 99 100 05/18/18 11:01 05/18/18 12:00 05/18/18 13:00 Temperature Pulse Rate 88 86 102 H Respiratory Rate 31 H 30 H 36 H Blood Pressure 126/58 L 124/63 Pulse Oximetry 100 100 90 L 05/18/18 13:01 05/18/18 14:00 05/18/18 14:01 Temperature Pulse Rate 99 H 86 90 Respiratory Rate 34 H 23 24 Blood Pressure 147/69 H 128/66 Pulse Oximetry 85 L 99 100 05/18/18 14:20 05/18/18 15:00 05/18/18 16:00 Temperature 97.9 F Pulse Rate 89 87 91 H Respiratory Rate 18 20 39 H Blood Pressure 121/61 127/58 L Pulse Oximetry 99 99 05/18/18 17:00 05/18/18 20:00 05/18/18 22:13 Temperature 98.5 F Pulse Rate 93 H 90 89 Respiratory Rate 35 H 22 20 Blood Pressure 136/62 132/61 Pulse Oximetry 100 98 97 05/19/18 00:00 05/19/18 01:03 05/19/18 04:00 Temperature 98.2 F 97.7 F Pulse Rate 99 H 93 H 96 H Respiratory Rate 27 H 24 37 H Blood Pressure 129/62 123/62 Pulse Oximetry 98 99 05/19/18 05:32 Temperature Pulse Rate 88 Respiratory Rate 22 Blood Pressure Pulse Oximetry Intake & Output 05/18/18 05/19/18 05/19/18 18:59 06:59 18:59 Intake Total 1180 / 1180 1420 / 1420 Output Total 1500 / 1500 900 / 900 Balance -320 / -320 520 / 520 Weight 114.3 kg Intake: IV 700 / 700 700 / 700 D10W Inj 500 ML @ 50 mls/hr IV. 500 / 500 500 / 500 SIG .Q10H [facility] Rx#:[id number] Zosyn 4.5 GM Premix 4.5 gm In 200 / 200 200 / 200 100 ml @ 200 mls/hr IV.SIG Q6H [facility] Rx#:[id number] Oral 480 / 480 720 / 720 Output: Urine 1400 / 1400 700 / 700 Stool 100 / 100 200 / 200 Other: Date of Last Bowel Movement 05/18/18 05/19/18 <Loli Waters - 05/19/18 09:04> Narrative: Elderly woman, laying in bed comfortably, in no acute distress. <Loli Waters - 05/19/18 09:04> - Constitutional no acute distress <Loli Waters - 05/19/18 09:04> - Routine HEENT Exam Head: Present: normocephalic, atraumatic <Loli Waters - 05/19/18 09:04> - Routine Respiratory Exam Present: CTA bilaterally <Loli Waters 05/19/18 09:04> Comments: Anterior auscultation only. <Loli Waters - 05/19/18 09:04> - Routine Cardiovascular Exam Present: RRR, S1, S2, murmur <Loli Waters 05/19/18 09:04> Comments: Grade 1 systolic murmur appreciated over the left sternal border. <Loli Waters - 05/19/18 09:04> - Routine Abdominal Exam Present: soft, normoactive bowel sounds. Absent: tenderness <Loli Waters 05/19/18 09:04> - Urinary Catheter Management Female External Cath placed during this visit: no <Renata Sanchez - 05/20/18 10:48> no <Loli Waters - 05/19/18 13:05> Indwelling Urethral Catheter Cath placed during this visit: no <Renata Sanchez - 05/20/18 10:48> yes, but has since been removed by the nurse <Loli Waters - 05/19/18 13:05> Reason for continuing: Continue criteria not met <Loli Waters - 05/19/18 09 :04> Insertion date: 05/12/18 <Loli Waters - 05/19/18 09:04> Insertion time: 15:00 <Loli Waters - 05/19/18 09:04> Removal date: 05/14/18 <Loli Waters - 05/19/18 09:04> Removal time: 17:28 <Loli Waters - 05/19/18 09:04> Assessment and Plan - Assessment (1) C. difficile colitis Code(s): A04.72 - Enterocolitis due to Clostridium difficile, not specified as recurrent Status: Acute (2) Cytopenia Code(s): D75.9 - Disease of blood and blood-forming organs, unspecified Status : Acute (3) Pneumonia Code(s): J18.9 - Pneumonia, unspecified organism Status: Acute (4) Hypokalemia Code(s): E87.6 - Hypokalemia Status: Resolved (5) SIRS (systemic inflammatory response syndrome) Code(s): R65.10 - Systemic inflammatory response syndrome (SIRS) of non- infectious origin without acute organ dysfunction Status: Acute (6) Murmur Code(s): R01.1 - Cardiac murmur, unspecified Status: Acute (7) Pyelonephritis Code(s): N12 - Tubulo-interstitial nephritis, not specified as acute or chronic Status: Acute (8) Metastatic breast cancer Code(s): C50.919 - Malignant neoplasm of unspecified site of unspecified female breast Status: Chronic (9) Nutrition, metabolism, and development symptoms Code(s): R63.8 - Other symptoms and signs concerning food and fluid intake Status: Acute (10) DVT prophylaxis Status: Acute <Renata Sanchez - 05/20/18 10:48> (1) C. difficile colitis Code(s): A04.72 - Enterocolitis due to Clostridium difficile, not specified as recurrent Status: Acute Plan: C. difficile positive, epit 027 positive. Rectal bag still draining minimal amounts of green liquid stool. Patient denies abdominal pain. Dificid and vancomycin p.o (Day 7) Protonix 40 mg IV daily. Zofran 8 mg IV q8 for Nausea Continue to monitor CMP for any electrolyte abnormalities due to vomiting and diarrhea. Follow-up recommendations of GI; - Mild colitis of transverse colon on CT -GI has signed off: Can continue to follow ID recommendations for treatment and have patient follow-up with GI after discharge as an outpatient. -Patient may require stool transfer versus immunotherapy, poor prognosis CT negative 2 for any gallbladder pathology or obstruction mass s/p Flagyl 500 mg p.o. (05/11-05/12) (2) Cytopenia Code(s): D75.9 - Disease of blood and blood-forming organs, unspecified Status : Acute Plan: WBC improved to from 6.9 to 9.2 yesterday, follow-up CBC today Myelosuppression attributed to recent chemotherapy with Taxol, continue to follow-up CBC -Oncology following; may start on Neupogen if neutropenic on consistent labs, will get port study when more stable Continue to follow-up CBCs (3) Hypokalemia Code(s): E87.6 - Hypokalemia Status: Acute Plan: Resolved as potassium increased from 3.2 to 3.9. Follow-up CMP today. Will replace if needed. (4) Pneumonia Code(s): J18.9 - Pneumonia, unspecified organism Status: Acute Plan: Patient states that her cough has gotten better today, ID following, treating for pneumonia as follows Continue treatment for nosocomial pneumonia, fpc related Continue IV Zosyn for PNA x 7 days as above Continue Flonase nasal spray Continue duo nebs scheduled every 4 hours Patient doing incentive spirometer Patient saturating well on room air. Chest x-ray 05/16: Bilateral parenchymal infiltrates Chest x-ray 05/12: No change Chest x-ray 05/11: Right upper lobe consolidation most characteristic of pneumonia (5) SIRS (systemic inflammatory response syndrome) Code(s): R65.10 - Systemic inflammatory response syndrome (SIRS) of non- infectious origin without acute organ dysfunction Status: Acute Plan: Resolved On 05/12: Signs of severe sepsis with altered mental status, tachycardia, hypotension, skin mottling Transferred to ICU on 05/12 at 1400, with NG tube placement and GI management of severe resistant C. difficile. Possible source of sepsis includes pneumonia, C. difficile colitis, bacteremia IV Vanc, Zosyn, and PO Flagyl (05/11-05/12) Per consult with ID, GI and Critical Care MD, Continue on IV Zosyn, with PO Vanc and PO Dificid (05/12 - ) Chest x-ray 05/13-05/14 shows right upper lobe opacity, CXR clear of opacity today Repeat CT abdomen showed no change, possible pyelonephritis (ID dw with rads and likely not pyelo), possible mild colitis of transverse colon Venous Doppler negative, low suspicion for PE at this time given improvement with IV fluids and NG tube placement Blood cultures negative 2 day WBC stable Pending CBC, CMP today, problems with IV access ID recommendation; Cont Zosyn x 7 days (05/12 -05/19) to cover for PNA On admission HR:143, RR:28, Bands: 18. Meets 3 out of 5 SIRS criteria. Unknown source of infection. Vancomycin and Zosyn added empirically for coverage. UA and Culture ordered. UA negative, f/u uCx Chest Xray: Right upper lobe consolidation CT of abdomen x 2; probable pyelonephritis as above, versus interstitial nephritis versus renal infarction versus renal lymphoma. 5 mm calcification could represent appendicolith Lipase negative Follow-up sputum culture. Urine strep pneumo antigen and Legionella antigens negative (6) Murmur Code(s): R01.1 - Cardiac murmur, unspecified Status: Acute Plan: Grade 1 out of 5 systolic murmur appreciated on physical exam. Patient states that she was diagnosed with a murmur in the past when questioned. Patient stated that she got an echocardiogram while at [facility], will look up old records. We will consider getting an echocardiogram once C. difficile and pneumonia have resolved. SCDs only for DVT prophylaxis. (7) Pyelonephritis Code(s): N12 - Tubulo-interstitial nephritis, not specified as acute or chronic Status: Acute Plan: Possible pyelonephritis on CT versus renal infarction ID discussed w RADS, likely not pyelo (8) MARIELA (acute kidney injury) Code(s): N17.9 - Acute kidney failure, unspecified Status: Acute Plan: Resolved on 05/14. Cr yesterday 0.68. Follow up CMP. likely due to CT 2 on 05/12, creatinine 1.81 Caution with IV contrast, nephrotoxins, NSAIDs Cr: 1.19 on admission. Baseline: 0.67 Possibly due to dehydration due to vomiting and diarrhea Continue rehydration with fluids. (9) Metastatic breast cancer Code(s): C50.919 - Malignant neoplasm of unspecified site of unspecified female breast Status: Chronic Plan: Currently followed by Dr. Zuñiga, oncology. Spoke with Dr. Ayers, follow-up with Dr. Zuñiga CT of abdomen with contrast: no additional tumors revealed CT head w/ and w/out IV contrast: No evidence of brain metastases. Stable chronic white matter ischemic changes Continue to treat for infxn Oncology consulted. Appreciate recommendations. (10) Nutrition, metabolism, and development symptoms Code(s): R63.8 - Other symptoms and signs concerning food and fluid intake Status: Acute Plan: Fluids: clear liquids, f/u with speech therapy to re-eval possibly advancing diet Electrolytes: Monitor and Replete as needed, watching low glucose and low calcium Diet: soft diet (11) DVT prophylaxis Status: Acute Plan: Lovenox 40 subcu daily <Loli Waters - 05/19/18 13:05> - Assessment and Plan 68-year-old female currently undergoing chemotherapy for metastatic breast cancer , and severe sepsis with excessive tachycardia, vomiting and diarrhea, and pneumonia, C. difficile positive with pyelonephritis on CT. <Loli Waters - 05/19/18 09:04> Discharge Planning: Plan for discharge once patient becomes clinically stable and oncology suggest recommendations. <Loli Waters - 05/19/18 09:04> - Attending Attestation The exam, history, and the medical decision-making described in the above note were completed with the assistance of the resident physician. I reviewed and agree with the findings presented. I attest that I had a [id number] encounter with the patient on the same day, and personally performed and documented my assessment and findings in the medical record. Had a conversation with Ms. Sellers, she is very interested in rehab and getting some of her strength back. She is still upset about having the sepsis and it was a very traumatic experience for her. <Renata Sanchez - 05/20/18 10:48>
[2018-05-19] MEDS: Dextrose 10% in Water Inj 500 ML IV.SIG SCH ×2 (09:25→18:17)
[2018-05-19] MEDS: Insulin NovoLOG Aspart Correctional Sugar Inj SQ SCH ×4 (09:27→20:54)
--- NOTE | 2018-05-19 11:41 | P.PNONC ---
Subjective Interval history: Afebrile Patient reports she is feeling much better Per BUFFER NICKEL she states she had a total of 200 mL's liquid stool overnight RN asking if she still needs D10 infusing [id number] still not drawing back blood Objective Vital Signs/Intake & Output: Vital Signs 05/18/18 12:00 05/18/18 13:00 05/18/18 13:01 Temperature Pulse Rate 86 102 H 99 H Respiratory Rate 30 H 36 H 34 H Blood Pressure 124/63 147/69 H Pulse Oximetry 100 90 L 85 L 05/18/18 14:00 05/18/18 14:01 05/18/18 14:20 Temperature Pulse Rate 86 90 89 Respiratory Rate 23 24 18 Blood Pressure 128/66 Pulse Oximetry 99 100 05/18/18 15:00 05/18/18 16:00 05/18/18 17:00 Temperature 97.9 F Pulse Rate 87 91 H 93 H Respiratory Rate 20 39 H 35 H Blood Pressure 121/61 127/58 L 136/62 Pulse Oximetry 99 99 100 05/18/18 20:00 05/18/18 22:13 05/19/18 00:00 Temperature 98.5 F 98.2 F Pulse Rate 90 89 99 H Respiratory Rate 22 20 27 H Blood Pressure 132/61 129/62 Pulse Oximetry 98 97 98 05/19/18 01:03 05/19/18 04:00 05/19/18 05:32 Temperature 97.7 F Pulse Rate 93 H 96 H 88 Respiratory Rate 24 37 H 22 Blood Pressure 123/62 Pulse Oximetry 99 05/19/18 08:00 05/19/18 08:51 Temperature 97.8 F Pulse Rate 97 H 98 H Respiratory Rate 24 28 H Blood Pressure 138/63 Pulse Oximetry 98 95 Intake & Output 05/18/18 05/19/18 05/19/18 18:59 06:59 18:59 Intake Total 1180 / 1180 1420 / 1420 500 / 500 Output Total 1500 / 1500 900 / 900 Balance -320 / -320 520 / 520 500 / 500 Weight 251 lb 15.814 oz Intake: IV 700 / 700 700 / 700 500 / 500 D10W Inj 500 ML @ 50 mls/hr IV. 500 / 500 500 / 500 500 / 500 SIG .Q10H [facility] Rx#:[id number] Zosyn 4.5 GM Premix 4.5 gm In 200 / 200 200 / 200 100 ml @ 200 mls/hr IV.SIG Q6H [facility] Rx#:[id number] Oral 480 / 480 720 / 720 Output: Urine 1400 / 1400 700 / 700 Stool 100 / 100 200 / 200 Other: Date of Last Bowel Movement 05/18/18 05/19/18 05/19/18 Result Diagrams: 05/18/18 10:53 05/18/18 10:53 Laboratory Results: Laboratory Results - last 24 hr 05/18/18 05/18/18 05/18/18 10:53 10:53 17:07 WBC Differential Manual diff final Seg Neuts % (Manual) 57 Band Neuts % (Manual) 9 H Lymphocytes % (Manual) 13 Monocytes % (Manual) 7 Basophils % (Manual) 1 Metamyelocytes % (Man) 7 H Promyelocytes % (Man) 4 H Blast Cells % (Manual) 2 H Abs Neuts (Manual) 7.1 Toxic Granulation 1+ H Platelet Estimate Normal Platelet Morphology Normal Ovalocytes 1+ H POC Glucose 425 H Prot Corrected Calcium 8.2 L Total Protein 5.3 L 05/18/18 05/18/18 05/19/18 17:08 21:29 07:44 WBC Differential Seg Neuts % (Manual) Band Neuts % (Manual) Lymphocytes % (Manual) Monocytes % (Manual) Basophils % (Manual) Metamyelocytes % (Man) Promyelocytes % (Man) Blast Cells % (Manual) Abs Neuts (Manual) Toxic Granulation Platelet Estimate Platelet Morphology Ovalocytes POC Glucose 138 H 132 H 126 H Prot Corrected Calcium Total Protein Culture Results: Microbiology 05/18/18 21:45 Gram Stain - Final Sputum - Expectorated Sputum 05/12/18 15:32 Aerobic Blood Culture - Final Blood - Line No growth in 5 days Anaerobic Blood Culture - Final No growth in 5 days 05/12/18 15:25 Aerobic Blood Culture - Final Blood - Line No growth in 5 days Anaerobic Blood Culture - Final No growth in 5 days 05/11/18 22:20 Aerobic Blood Culture - Final Blood - Peripheral No growth in 5 days Anaerobic Blood Culture - Final QNS - See aerobic report. 05/11/18 19:45 Aerobic Blood Culture - Final Blood - Peripheral No growth in 5 days Anaerobic Blood Culture - Final QNS - See aerobic report. Imaging Studies: Impressions Chest X-Ray 05/19/18 06:00 CONCLUSION: Stable chest x-ray with right upper lobe and left basilar opacity. Medications: Active Medications Generic Name Dose Route Start Last Admin Trade Name Freq PRN Reason Stop Dose Admin Acetaminophen 650 mg 05/11/18 15:43 05/12/18 21:49 Tylenol PO 650 mg Q4H PRN Administration Temp > 100.4 Albuterol 1 ampul 05/15/18 12:00 05/19/18 08:51 Duoneb Neb (Wendi) NEB 1 ampul Q4HR NEB [facility]ENDI Administration Cholestyramine Resin 4 gm 05/13/18 21:00 05/19/18 09:43 Questran 4 Gm Pkt PO 4 gm BID WENDI Administration Dextrose 50 ml 05/16/18 09:42 05/16/18 17:13 D50w Vial IV.PUSH 50 ml UNSCH PRN Administration PER HYPOGLYCEMIA PROTOCOL Enoxaparin Sodium 40 mg 05/12/18 15:00 05/18/18 15:42 Lovenox Inj SQ 40 mg Q24H [facility] Administration Fidaxomicin 200 mg 05/12/18 14:30 05/19/18 09:42 Dificid PO 05/21/18 23:59 200 mg BID WENDI Administration Fluticasone Propionate 1 spray 05/16/18 09:00 05/19/18 09:44 Flonase Nasal [place] EACH NARE 1 spray DAILY [facility]ENDI Administration Piperacillin/Tazobactam/Dextrose 4.5 gm in 100 mls @ 200 mls/hr 05/11/18 22: 00 05/19/18 09:42 Zosyn 4.5 Gm Premix IV.SIG 100 mls/hr Q6H [facility] Administration Potassium Chloride 40 meq in 100 mls @ 25 mls/hr 05/13/18 09:33 05/15/18 03: 13 Kcl 40 Meq Premix Inj IV.SIG Infused Q2H PRN Infusion For Potassium 2.8 - 3.2 mEq/L Potassium Phosphate 30 mmol/ 260 mls @ 42 mls/hr 05/13/18 09:33 05/16/18 01: 08 Sodium Chloride IV.SIG Infused UNSCH PRN Infusion SEE LABEL COMMENTS Sodium Phosphate 30 mmol/ 260 mls @ 42 mls/hr 05/13/18 09:33 05/17/18 00:47 Sodium Chloride IV.SIG 42 mls/hr UNSCH PRN Administration For Phosphorus < 2.5 mg/dL Dextrose 500 mls @ 50 mls/hr 05/16/18 19:00 05/19/18 09:25 D10w Inj IV.SIG 50 mls/hr .Q10H [facility] Administration Insulin Aspart 0 unit 05/16/18 12:00 05/19/18 09:27 Novolog Insulin Correctional Sugar Inj SQ Not Given ACHS [facility] Protocol Lorazepam 1 mg 05/11/18 21:00 05/12/18 13:51 Ativan PO Not Given BID [facility] Metoprolol Tartrate 25 mg 05/12/18 09:00 05/12/18 09:23 Lopressor PO Not Given DAILY [facility] Ondansetron HCl 8 mg 05/11/18 14:08 05/12/18 09:24 Zofran Inj IV.PUSH 8 mg Q8H PRN Administration VOMITING Pantoprazole Sodium 40 mg 05/16/18 09:00 05/19/18 09:42 Protonix PO 40 mg DAILY [facility] Administration Potassium Phosphate 2,000 mg 05/13/18 09:33 05/18/18 17:11 K-Phos Original PO 2,000 mg Q4H PRN Administration Phosphorus Less Than 2.5 mg/dL Pramipexole Dihydrochloride 1 mg 05/11/18 21:00 05/18/18 21:38 Mirapex PO 1 mg HS [facility]I Administration Sodium Chloride 2 ml 05/11/18 09:37 05/11/18 14:27 Ns Flush IV.FLUSH 2 ml PRN PRN Administration FLUSH AFTER USING IV ACCESS Vancomycin HCl 500 mg 05/12/18 18:00 05/19/18 09:42 Vancomycin Po PO 500 mg QID [facility]I Administration Objective Remarks: GENERAL: Obese older female resting in bed in no obvious distress SKIN: Warm and dry. [id number] to right upper chest. No oozing. HEAD: Normocephalic. EYES: No scleral icterus. No injection or drainage. NECK: Supple, trachea midline. No JVD or lymphadenopathy. CARDIOVASCULAR: Regular rate and rhythm without murmurs. RESPIRATORY: Clear anteriorly. Breathing unlabored at rest. GASTROINTESTINAL: Abdomen soft and nontender. Rectal bag with minimal green liquid stool noted. EXTREMITIES: SCDs to bilateral lower extremities. MUSCULOSKELETAL: Generalized weakness NEUROLOGICAL: Patient much more alert than seen previously. She is engaging in conversation. Moving all extremities. Assessment/Plan - Plan Ms. Sellers is a 68-year-old female with a diagnosis of metastatic breast carcinoma, she has extensive skeletal metastases and had been on palliative systemic therapy with single agent Taxol. She had been treated in the recent past with levofloxacin for management of a urinary tract infection. She subsequently developed diarrhea and subsequent sepsis. She presented to this hospital with confusion, lethargy and difficulty breathing. The patient overall is doing much better. Her diarrhea is much improved. Anticipate her rectal bag will likely be able to be removed in the next couple of days. The patient is cleared to be transferred out of the ICU from our perspective. I will place a consult to interventional radiology to have the infusaport evaluated which will likely be on Monday. Continue antibiotics per infectious disease. We will defer to the attending in regards to questions about D10 infusion. - Attending Statement The exam, history, and the medical decision-making described in the above note were completed with the assistance of the mid-level provider. I reviewed and agree with the findings presented. I attest that I had a [id number] encounter with the patient on the same day, and personally performed and documented my assessment and findings in the medical record. She is still continuing to have watery diarrhea although less. She is on Zosyn for pneumonia. I contacted Dr. Maldonado who is her infectious disease specialist and discussed the situation. Dr. Maldonado will reevaluate and determine the minimal duration of Zosyn which is required for her pneumonia as this could potentially exacerbate her C. difficile infection. Regarding the breast cancer there is nothing to do and the patient cannot resume treatment until she is well
[2018-05-19] MEDS: Enoxaparin Inj 40 MG/0.4 ML Syringe SQ SCH (16:49)
--- NOTE | 2018-05-19 20:50 | P.PNID ---
Subjective Remarks: afebrile doing better cont to have liquid stool though amount went down significantly nl resp flaora in sputum clx afebrile Antibiotics: IV zosyn vanco po dificid Allergies/Adverse Reactions: Allergies hydromorphone [From Dilaudid] Adverse Reaction (Intermediate, Verified 05/11/18 10:38) Dizziness Objective Vital Signs 05/18/18 22:13 05/19/18 00:00 05/19/18 01:03 Temperature 98.2 F Pulse Rate 89 99 H 93 H Respiratory Rate 20 27 H 24 Blood Pressure 129/62 Pulse Oximetry 97 98 05/19/18 04:00 05/19/18 05:32 05/19/18 08:00 Temperature 97.7 F 97.8 F Pulse Rate 96 H 88 97 H Respiratory Rate 37 H 22 24 Blood Pressure 123/62 138/63 Pulse Oximetry 99 98 05/19/18 08:51 05/19/18 12:00 05/19/18 12:22 Temperature 97.9 F Pulse Rate 98 H 95 H 89 Respiratory Rate 28 H 28 H 21 Blood Pressure 124/58 L Pulse Oximetry 95 05/19/18 16:00 Temperature 98.2 F Pulse Rate 101 H Respiratory Rate 28 H Blood Pressure 128/70 Pulse Oximetry Intake & Output 05/19/18 05/19/18 05/20/18 06:59 18:59 06:59 Intake Total 1420 / 1420 1700 / 1700 Output Total 900 / 900 1100 / 1100 Balance 520 / 520 600 / 600 Weight 114.3 kg Intake: IV 700 / 700 1100 / 1100 D10W Inj 500 ML @ 50 mls/hr IV. 500 / 500 1000 / 1000 SIG .Q10H [facility] Rx#:[id number] Zosyn 4.5 GM Premix 4.5 gm In 200 / 200 100 / 100 100 ml @ 200 mls/hr IV.SIG Q6H [facility] Rx#:[id number] Oral 720 / 720 600 / 600 Output: Urine 700 / 700 Stool 200 / 200 100 / 100 Urine Amount (Catheter) 1000 / 1000 Female External 1000 / 1000 Other: Date of Last Bowel Movement 05/19/18 05/19/18 05/18/18 21:45 Sputum - Expectorated Sputum Gram Stain - Final 05/18/18 21:45 Sputum - Expectorated Sputum Sputum Culture - Preliminary Moderate growth normal respiratory bert at 24 hours 05/12/18 15:32 Blood - Line Aerobic Blood Culture - Final No growth in 5 days 05/12/18 15:32 Blood - Line Anaerobic Blood Culture - Final No growth in 5 days 05/12/18 15:25 Blood - Line Aerobic Blood Culture - Final No growth in 5 days 05/12/18 15:25 Blood - Line Anaerobic Blood Culture - Final No growth in 5 days Lab - Hematology Results 05/18/18 10:53 WBC 9.2 RBC 3.37 L Hgb 10.3 L Hct 31.4 L MCV 92.9 MCH 30.6 MCHC 33.0 RDW 22.3 H Plt Count 150 D MPV 10.1 Prelim Diff (Auto) Manual diff required WBC Differential Manual diff final Seg Neuts % (Manual) 57 Band Neuts % (Manual) 9 H Lymphocytes % (Manual) 13 Monocytes % (Manual) 7 Basophils % (Manual) 1 Metamyelocytes % (Man) 7 H Promyelocytes % (Man) 4 H Blast Cells % (Manual) 2 H Abs Neuts (Manual) 7.1 Differential Comment . Toxic Granulation 1+ H Platelet Estimate Normal Platelet Morphology Normal Ovalocytes 1+ H Lab - Chemistry Results 05/17/18 05/18/18 05/18/18 21:45 10:53 17:07 Sodium 140 Potassium 3.9 Chloride 108 H Carbon Dioxide 23.1 Anion Gap 9 BUN 3 L Creatinine 0.68 Estimated GFR 87 L POC Glucose 72 425 H Random Glucose 111 H Calcium 7.2 L* Prot Corrected Calcium 8.2 L Phosphorus 1.4 L D Magnesium 2.2 D Total Protein 5.3 L 05/18/18 05/18/18 05/19/18 17:08 21:29 07:44 Sodium Potassium Chloride Carbon Dioxide Anion Gap BUN Creatinine Estimated GFR POC Glucose 138 H 132 H 126 H Random Glucose Calcium Prot Corrected Calcium Phosphorus Magnesium Total Protein 05/19/18 05/19/18 11:46 16:26 Sodium Potassium Chloride Carbon Dioxide Anion Gap BUN Creatinine Estimated GFR POC Glucose 103 100 Random Glucose Calcium Prot Corrected Calcium Phosphorus Magnesium Total Protein Imaging: ITS Impressions Chest CT 05/12/18 00:00 CONCLUSION: 1. Confluent opacity in the right upper lobe that is new when compared to the prior study 2016. Morphology would favor scarring. There is mild associated bronchiectasis. More acute consolidation is also in the differential diagnosis. Neoplasm would be less likely but is in the differential diagnosis. Recommend a follow-up noncontrast chest CT confirm stability or resolution in 3 months. 2. Minimal nonspecific groundglass opacity in the left upper lobe. The prominent bilateral groundglass opacity seen on prior study of 2017 is not seen on today's study. Head CT 05/12/18 00:00 CONCLUSION: 1. No acute intracranial abnormalities. Stable chronic white matter ischemic changes. . Venous Doppler Study 05/12/18 00:00 CONCLUSION: No evidence of lower extremity DVT on the right or left. Abdomen/Pelvis CT 05/12/18 15:00 CONCLUSION: 1. Questionable mild mural thickening of the colon that could indicate a mild colitis, especially transverse colon. 2. Heterogeneous renal parenchymal enhancement not as optimally evaluated as on prior study. Cannot exclude pyelonephritis. 3. Bhagat catheter in decompressed bladder. 4. Hiatal hernia. 5. Moderate coronary calcifications. Abdomen X-Ray 05/12/18 21:10 CONCLUSION: Nasogastric tube in the stomach with the tip at the gastroesophageal junction. Chest X-Ray 05/19/18 06:00 CONCLUSION: Stable chest x-ray with right upper lobe and left basilar opacity. Physical Exam: GENERAL: NAD On RA SKIN: Warm and dry. HEAD: Atraumatic. Normocephalic. EYES: Pupils equal and round. No scleral icterus. No injection or drainage. ENT: No nasal bleeding or discharge. Mucous membranes pink and moist. NECK: Trachea midline. No JVD. CARDIOVASCULAR: Regular rate and rhythm. RESPIRATORY: No accessory muscle use. Few scattered rhonchi to auscultation. Breath sounds equally diminished bilaterally. GASTROINTESTINAL: Abdomen soft, non-tender, moderately distended. Hepatic and splenic margins not palpable. MUSCULOSKELETAL: Extremities without clubbing, cyanosis, or edema. No obvious deformities. well prefused hands and feet NEUROLOGICAL: Awake and alert. No obvious cranial nerve deficits. Motor grossly within normal limits. Five out of 5 muscle strength in the arms and legs. Normal speech. PSYCHIATRIC: Appropriate mood and affect; insight and judgment normal. Assessment and Plan - Plan Metastatic breadst Ca sp chemo Mildly cytopenic, liklely suppressed from chemo - improved WBC to 3700 Hypervirulent 027 C.diff Severe sepsis: likely C/diff ? R side pyelo, though UA, clin presntation not cw pyelo PNA, w multilobar with LLL and RUL infiltrates - was 1 week on pip-tazo ARF - imnproved with IVF resuscitation cont po vanco cont Dificid dc zosyn fu sputum clx repeat CXR veronica Gotti
[2018-05-19 21:51] LABS: Hematocrit 30.8 % (35.0-46.0); Mean Corpuscular HGB Conc 32.3 % (32.0-36.0); Mean Corpuscular Volume 92.8 fL (80.0-100.0); Mean Platelet Volume 9.8 fL (7.0-11.0); Red Blood Count 3.32 mil/mm3 (4.00-5.30); Red Cell Distribution Width 22.4 % (11.6-17.2); White Blood Count 9.8 th/mm3 (4.0-11.0)
[2018-05-19 21:52] LABS: Platelet Count 126 th/mm3 (150-450)
[2018-05-19 22:06] LABS: Albumin 1.6 g/dL (3.4-5.0); Calcium 7.2 mg/dL (8.5-10.1); Carbon Dioxide 22.7 meq/L (21.0-32.0); Potassium 3.8 meq/L (3.5-5.1); Total Protein 5.1 g/dL (6.4-8.2)
[2018-05-19 23:44] LABS: Lymphocytes 8 % (9-44); Metamyelocytes 6 % (0-1); Monocytes 8 % (0-8); Myelocytes 1 % (0-0); Tallied Nucleated RBC 2 (0-0); Toxic Granulation 3+
[2018-05-19 23:45] LABS: Acanthocytes Occ
[2018-05-20] MEDS: Dextrose 10% in Water Inj 500 ML IV.SIG SCH ×2 (03:58→15:11)
[2018-05-20 06:34] LABS: Hematocrit 30.2 % (35.0-46.0); Hemoglobin 9.9 gm/dL (11.6-15.3); Mean Corpuscular HGB Conc 32.9 % (32.0-36.0); Mean Corpuscular Hemoglobin 30.6 pg (27.0-34.0); Mean Platelet Volume 9.4 fL (7.0-11.0); Platelet Count 129 th/mm3 (150-450); Red Blood Count 3.25 mil/mm3 (4.00-5.30); Red Cell Distribution Width 22.4 % (11.6-17.2); White Blood Count 9.4 th/mm3 (4.0-11.0)
[2018-05-20 06:58] LABS: Alanine Aminotransferase 22 U/L (10-53); Albumin 1.6 g/dL (3.4-5.0); Alkaline Phosphatase 217 U/L (45-117); Anion Gap 9 meq/L (5-15); Aspartate Aminotransferase 21 U/L (15-37); Blood Urea Nitrogen 3 mg/dL (7-18); Calcium 7.2 mg/dL (8.5-10.1); Chloride 107 meq/L (98-107); Glomerular Filtration Rate Greater Than 89 mL/min (>89); Glucose,Random 99 mg/dL (74-106); Potassium 3.9 meq/L (3.5-5.1); Sodium 136 meq/L (136-145); Total Protein 5.2 g/dL (6.4-8.2)
[2018-05-20 07:50] LABS: Lymphocytes 5 % (9-44); Metamyelocytes 14 % (0-1); Monocytes 5 % (0-8); Myelocytes 6 % (0-0); Tallied Nucleated RBC 1 (0-0)
[2018-05-20 07:51] LABS: Ovalocytes 1+; Platelet Morphology Normal (Normal); Toxic Granulation 1+
[2018-05-20] MEDS: Potassium Phosphate 500 MG Soluble Tablet PO PRN (08:44)
[2018-05-20] MEDS: Insulin NovoLOG Aspart Correctional Sugar Inj SQ SCH ×4 (08:45→21:39)
--- NOTE | 2018-05-20 10:41 | P.PNFP ---
Subjective Interval history: Patient seen and examined this morning. No acute events overnight. Patient reports feeling improved. Still having diarrhea. Rectal tube still in place. Is looking at places to go for possible rehab. Denies any fever chills, chest pain, shortness of breath, abdominal pain, leg pain. <Carloz Can Robina - 05/20/18 10:40> Results - Labs Result diagrams: 05/20/18 06:20 05/20/18 06:20 <Renata Sanchez - 05/20/18 10:49> Abnormal lab results 05/19/18 05/19/18 05/19/18 Range/Units 20:20 20:20 20:20 RBC 3.32 L (4.00-5.30) mil/mm3 Hgb 10.0 L (11.6-15.3) gm/dL Hct 30.8 L (35.0-46.0) % RDW 22.4 H (11.6-17.2) % Plt Count 126 L (150-450) th/mm3 Band Neuts % (Manual) 15 H (0-6) % Lymphocytes % (Manual) 8 L (9-44) % Metamyelocytes % (Man) 6 H (0-1) % Myelocytes % (Man) 1 H (0-0) % Abs Neuts (Manual) 8.2 H (1.8-7.7) th/mm3 Nucleated RBCs/100 WBC 2 H (0-0) /100 WBC Toxic Granulation 3+ H (None) Platelet Estimate Low L (Normal) Platelet Morphology Enlarged H (Normal) Ovalocytes (None) Acanthocytes (Spur) Occ H (None) Carbon Dioxide (21.0-32.0) meq/L BUN 3 L (7-18) mg/dL Estimated GFR 88 L (>89) mL/min Random Glucose 108 H (74-106) mg/dL Calcium 7.2 L* (8.5-10.1) mg/dL Prot Corrected Calcium 8.3 L (8.5-10.1) mg/dL Phosphorus 1.5 L (2.5-4.9) mg/dL Alkaline Phosphatase 204 H (45-117) U/L Total Protein 5.1 L (6.4-8.2) g/dL Albumin 1.6 L (3.4-5.0) g/dL 08/12/18 08/12/18 08/12/18 Range/Units 06:20 06:20 06:20 RBC 3.25 L (4.00-5.30) mil/mm3 Hgb 9.9 L (11.6-15.3) gm/dL Hct 30.2 L (35.0-46.0) % RDW 22.4 H (11.6-17.2) % Plt Count 129 L (150-450) th/mm3 Band Neuts % (Manual) 18 H (0-6) % Lymphocytes % (Manual) 5 L (9-44) % Metamyelocytes % (Man) 14 H (0-1) % Myelocytes % (Man) 6 H (0-0) % Abs Neuts (Manual) 8.5 H (1.8-7.7) th/mm3 Nucleated RBCs/100 WBC 1 H (0-0) /100 WBC Toxic Granulation 1+ H (None) Platelet Estimate Low L (Normal) Platelet Morphology (Normal) Ovalocytes 1+ H (None) Acanthocytes (Spur) (None) Carbon Dioxide 20.0 L (21.0-32.0) meq/L BUN 3 L (7-18) mg/dL Estimated GFR (>89) mL/min Random Glucose (74-106) mg/dL Calcium 7.2 L* (8.5-10.1) mg/dL Prot Corrected Calcium 8.2 L (8.5-10.1) mg/dL Phosphorus 1.9 L (2.5-4.9) mg/dL Alkaline Phosphatase 217 H (45-117) U/L Total Protein 5.2 L (6.4-8.2) g/dL Albumin 1.6 L (3.4-5.0) g/dL Short CBC 05/19/18 05/20/18 Range/Units 20:20 06:20 WBC 9.8 9.4 (4.0-11.0) th/mm3 Hgb 10.0 L 9.9 L (11.6-15.3) gm/dL Hct 30.8 L 30.2 L (35.0-46.0) % Plt Count 126 L 129 L (150-450) th/mm3 BMP 05/19/18 05/20/18 20:20 06:20 Sodium 138 136 Potassium 3.8 3.9 Chloride 107 107 Carbon Dioxide 22.7 20.0 L BUN 3 L 3 L Creatinine 0.67 0.52 Calcium 7.2 L* 7.2 L* Liver Function 05/19/18 05/20/18 Range/Units 20:20 06:20 Total Bilirubin 0.6 0.5 (0.2-1.0) mg/dL AST 18 21 (15-37) U/L ALT 22 22 (10-53) U/L Alkaline Phosphatase 204 H 217 H (45-117) U/L Albumin 1.6 L 1.6 L (3.4-5.0) g/dL <eRnata Sanchez - 05/20/18 10:49> Abnormal lab results 05/19/18 05/19/18 05/19/18 Range/Units 20:20 20:20 20:20 RBC 3.32 L (4.00-5.30) mil/mm3 Hgb 10.0 L (11.6-15.3) gm/dL Hct 30.8 L (35.0-46.0) % RDW 22.4 H (11.6-17.2) % Plt Count 126 L (150-450) th/mm3 Band Neuts % (Manual) 15 H (0-6) % Lymphocytes % (Manual) 8 L (9-44) % Metamyelocytes % (Man) 6 H (0-1) % Myelocytes % (Man) 1 H (0-0) % Abs Neuts (Manual) 8.2 H (1.8-7.7) th/mm3 Nucleated RBCs/100 WBC 2 H (0-0) /100 WBC Toxic Granulation 3+ H (None) Platelet Estimate Low L (Normal) Platelet Morphology Enlarged H (Normal) Ovalocytes (None) Acanthocytes (Spur) Occ H (None) Carbon Dioxide (21.0-32.0) meq/L BUN 3 L (7-18) mg/dL Estimated GFR 88 L (>89) mL/min Random Glucose 108 H (74-106) mg/dL Calcium 7.2 L* (8.5-10.1) mg/dL Prot Corrected Calcium 8.3 L (8.5-10.1) mg/dL Phosphorus 1.5 L (2.5-4.9) mg/dL Alkaline Phosphatase 204 H (45-117) U/L Total Protein 5.1 L (6.4-8.2) g/dL Albumin 1.6 L (3.4-5.0) g/dL 05/20/18 05/20/18 05/20/18 Range/Units 06:20 06:20 06:20 RBC 3.25 L (4.00-5.30) mil/mm3 Hgb 9.9 L (11.6-15.3) gm/dL Hct 30.2 L (35.0-46.0) % RDW 22.4 H (11.6-17.2) % Plt Count 129 L (150-450) th/mm3 Band Neuts % (Manual) 18 H (0-6) % Lymphocytes % (Manual) 5 L (9-44) % Metamyelocytes % (Man) 14 H (0-1) % Myelocytes % (Man) 6 H (0-0) % Abs Neuts (Manual) 8.5 H (1.8-7.7) th/mm3 Nucleated RBCs/100 WBC 1 H (0-0) /100 WBC Toxic Granulation 1+ H (None) Platelet Estimate Low L (Normal) Platelet Morphology (Normal) Ovalocytes 1+ H (None) Acanthocytes (Spur) (None) Carbon Dioxide 20.0 L (21.0-32.0) meq/L BUN 3 L (7-18) mg/dL Estimated GFR (>89) mL/min Random Glucose (74-106) mg/dL Calcium 7.2 L* (8.5-10.1) mg/dL Prot Corrected Calcium 8.2 L (8.5-10.1) mg/dL Phosphorus 1.9 L (2.5-4.9) mg/dL Alkaline Phosphatase 217 H (45-117) U/L Total Protein 5.2 L (6.4-8.2) g/dL Albumin 1.6 L (3.4-5.0) g/dL Short CBC 05/19/18 05/20/18 Range/Units 20:20 06:20 WBC 9.8 9.4 (4.0-11.0) th/mm3 Hgb 10.0 L 9.9 L (11.6-15.3) gm/dL Hct 30.8 L 30.2 L (35.0-46.0) % Plt Count 126 L 129 L (150-450) th/mm3 BMP 05/19/18 05/20/18 20:20 06:20 Sodium 138 136 Potassium 3.8 3.9 Chloride 107 107 Carbon Dioxide 22.7 20.0 L BUN 3 L 3 L Creatinine 0.67 0.52 Calcium 7.2 L* 7.2 L* Liver Function 05/19/18 05/20/18 Range/Units 20:20 06:20 Total Bilirubin 0.6 0.5 (0.2-1.0) mg/dL AST 18 21 (15-37) U/L ALT 22 22 (10-53) U/L Alkaline Phosphatase 204 H 217 H (45-117) U/L Albumin 1.6 L 1.6 L (3.4-5.0) g/dL <Carloz Can - 05/20/18 10:40> Physical Exam Vital signs: Vital Signs 05/19/18 11:00 05/19/18 12:00 05/19/18 12:01 Temperature 97.9 F Pulse Rate 93 H 98 H 103 H Respiratory Rate 24 37 H 31 H Blood Pressure 124/58 L 124/58 L 193/91 H Pulse Oximetry 99 95 83 L 05/19/18 12:03 05/19/18 12:22 05/19/18 13:00 Temperature Pulse Rate 93 H 89 93 H Respiratory Rate 22 21 35 H Blood Pressure 134/61 118/56 L Pulse Oximetry 81 L 93 L 05/19/18 14:00 05/19/18 15:00 05/19/18 15:01 Temperature Pulse Rate 97 H 95 H 98 H Respiratory Rate 40 H 43 H 39 H Blood Pressure 122/68 146/73 H Pulse Oximetry 98 89 L 94 L 05/19/18 16:00 05/19/18 17:00 05/19/18 18:00 Temperature 98.2 F Pulse Rate 97 H 98 H 97 H Respiratory Rate 22 41 H 33 H Blood Pressure 122/74 128/70 132/66 Pulse Oximetry 96 98 80 L 05/19/18 19:00 05/19/18 20:00 05/19/18 20:30 Temperature 100.4 F H Pulse Rate 102 H 102 H Respiratory Rate 26 H 33 H Blood Pressure 125/71 123/63 Pulse Oximetry 95 96 96 05/19/18 21:00 05/19/18 22:00 05/19/18 23:00 Temperature Pulse Rate 103 H 96 H 97 H Respiratory Rate 37 H 30 H 33 H Blood Pressure 140/67 123/73 132/63 Pulse Oximetry 96 93 L 98 05/20/18 00:00 05/20/18 01:31 05/20/18 04:00 Temperature 99.8 F H 99.3 F Pulse Rate 98 H 95 H 96 H Respiratory Rate 40 H 20 38 H Blood Pressure 122/59 L 145/63 H Pulse Oximetry 95 97 05/20/18 07:46 05/20/18 08:00 Temperature 98.7 F Pulse Rate 91 H Respiratory Rate 30 H Blood Pressure 137/65 Pulse Oximetry 96 97 Intake & Output 05/19/18 05/20/18 05/20/18 18:59 06:59 18:59 Intake Total 1700 / 1700 880 / 880 Output Total 1100 / 1100 1350 / 1350 Balance 600 / 600 -470 / -470 Weight 113.5 kg Intake: IV 1100 / 1100 500 / 500 D10W Inj 500 ML @ 50 mls/hr IV. 1000 / 1000 500 / 500 SIG .Q10H [facility]EDO Rx#:[id number] Zosyn 4.5 GM Premix 4.5 gm In 100 / 100 100 ml @ 200 mls/hr IV.SIG Q6H [facility]O Rx#:[id number] Oral 600 / 600 380 / 380 Output: Stool 100 / 100 350 / 350 Urine Amount (Catheter) 1000 / 1000 1000 / 1000 Female External 1000 / 1000 1000 / 1000 Other: Date of Last Bowel Movement 05/19/18 05/20/18 05/20/18 <Renata Sanchez - 05/20/18 10:49> Vital Signs 05/19/18 11:00 05/19/18 12:00 05/19/18 12:01 Temperature 97.9 F Pulse Rate 93 H 98 H 103 H Respiratory Rate 24 37 H 31 H Blood Pressure 124/58 L 124/58 L 193/91 H Pulse Oximetry 99 95 83 L 05/19/18 12:03 05/19/18 12:22 05/19/18 13:00 Temperature Pulse Rate 93 H 89 93 H Respiratory Rate 22 21 35 H Blood Pressure 134/61 118/56 L Pulse Oximetry 81 L 93 L 05/19/18 14:00 05/19/18 15:00 05/19/18 15:01 Temperature Pulse Rate 97 H 95 H 98 H Respiratory Rate 40 H 43 H 39 H Blood Pressure 122/68 146/73 H Pulse Oximetry 98 89 L 94 L 05/19/18 16:00 05/19/18 17:00 05/19/18 18:00 Temperature 98.2 F Pulse Rate 97 H 98 H 97 H Respiratory Rate 22 41 H 33 H Blood Pressure 122/74 128/70 132/66 Pulse Oximetry 96 98 80 L 05/19/18 19:00 05/19/18 20:00 05/19/18 20:30 Temperature 100.4 F H Pulse Rate 102 H 102 H Respiratory Rate 26 H 33 H Blood Pressure 125/71 123/63 Pulse Oximetry 95 96 96 05/19/18 21:00 05/19/18 22:00 05/19/18 23:00 Temperature Pulse Rate 103 H 96 H 97 H Respiratory Rate 37 H 30 H 33 H Blood Pressure 140/67 123/73 132/63 Pulse Oximetry 96 93 L 98 05/20/18 00:00 05/20/18 01:31 05/20/18 04:00 Temperature 99.8 F H 99.3 F Pulse Rate 98 H 95 H 96 H Respiratory Rate 40 H 20 38 H Blood Pressure 122/59 L 145/63 H Pulse Oximetry 95 97 05/20/18 07:46 05/20/18 08:00 Temperature 98.7 F Pulse Rate 91 H Respiratory Rate 30 H Blood Pressure 137/65 Pulse Oximetry 96 97 Intake & Output 05/19/18 05/20/18 05/20/18 18:59 06:59 18:59 Intake Total 1700 / 1700 880 / 880 Output Total 1100 / 1100 1350 / 1350 Balance 600 / 600 -470 / -470 Weight 113.5 kg Intake: IV 1100 / 1100 500 / 500 D10W Inj 500 ML @ 50 mls/hr IV. 1000 / 1000 500 / 500 SIG .Q10H [facility] Rx#:[id number] Zosyn 4.5 GM Premix 4.5 gm In 100 / 100 100 ml @ 200 mls/hr IV.SIG Q6H [facility] Rx#:[id number] Oral 600 / 600 380 / 380 Output: Stool 100 / 100 350 / 350 Urine Amount (Catheter) 1000 / 1000 1000 / 1000 Female External 1000 / 1000 1000 / 1000 Other: Date of Last Bowel Movement 05/19/18 05/20/18 05/20/18 <Carloz Can 05/20/18 10:40> Narrative: GENERAL: SKIN: Warm and dry. CARDIOVASCULAR: Regular rate and rhythm. RESPIRATORY: No accessory muscle use. Clear to auscultation. Decreased breath sounds. GASTROINTESTINAL: Abdomen soft, non-tender, nondistended. MUSCULOSKELETAL: Extremities without clubbing, cyanosis, or edema. No obvious deformities. NEUROLOGICAL: Awake and alert. No obvious cranial nerve deficits. Motor grossly within normal limits. Normal speech. PSYCHIATRIC: Appropriate mood and affect; insight and judgment normal. <Carloz Can 05/20/18 10:40> - Urinary Catheter Management Female External Cath placed during this visit: no <DanielRenata M 05/20/18 10:49> no <Carloz Can 05/20/18 10:40> Indwelling Urethral Catheter Cath placed during this visit: no <Renata Sanchez 05/20/18 10:49> yes, but has since been removed by the nurse <Carloz Can 05/20/18 10:40> Reason for continuing: Continue criteria not met <Carloz Can 05/20/18 10:40> Insertion date: 05/12/18 <Carloz Can 05/20/18 10:40> Insertion time: 15:00 <Carloz Can 05/20/18 10:40> Removal date: 05/14/18 <Carloz Can 05/20/18 10:40> Removal time: 17:28 <Carloz Can 05/20/18 10:40> Assessment and Plan - Assessment (1) C. difficile colitis Code(s): A04.72 - Enterocolitis due to Clostridium difficile, not specified as recurrent Status: Acute (2) Cytopenia Code(s): D75.9 - Disease of blood and blood-forming organs, unspecified Status : Acute (3) Pneumonia Code(s): J18.9 - Pneumonia, unspecified organism Status: Acute (4) Hypokalemia Code(s): E87.6 - Hypokalemia Status: Resolved (5) SIRS (systemic inflammatory response syndrome) Code(s): R65.10 - Systemic inflammatory response syndrome (SIRS) of non- infectious origin without acute organ dysfunction Status: Acute (6) Murmur Code(s): R01.1 - Cardiac murmur, unspecified Status: Acute (7) Pyelonephritis Code(s): N12 - Tubulo-interstitial nephritis, not specified as acute or chronic Status: Acute (8) Metastatic breast cancer Code(s): C50.919 - Malignant neoplasm of unspecified site of unspecified female breast Status: Chronic (9) Nutrition, metabolism, and development symptoms Code(s): R63.8 - Other symptoms and signs concerning food and fluid intake Status: Acute (10) DVT prophylaxis Status: Acute <Renata Sanchez Pratik - 05/20/18 10:49> (1) C. difficile colitis Code(s): A04.72 - Enterocolitis due to Clostridium difficile, not specified as recurrent Status: Acute Plan: C. difficile positive, epit 027 positive. Rectal bag still draining minimal amounts of green liquid stool. Patient denies abdominal pain. Dificid and vancomycin p.o Protonix 40 mg IV daily. Zofran 8 mg IV q8 for Nausea Continue to monitor CMP for any electrolyte abnormalities due to vomiting and diarrhea. Follow-up recommendations of GI; - Mild colitis of transverse colon on CT -GI has signed off: Can continue to follow ID recommendations for treatment and have patient follow-up with GI after discharge as an outpatient. -Patient may require stool transfer versus immunotherapy, poor prognosis CT negative 2 for any gallbladder pathology or obstruction mass s/p Flagyl 500 mg p.o. (05/11-05/12) (2) Cytopenia Code(s): D75.9 - Disease of blood and blood-forming organs, unspecified Status : Acute Plan: WBC improving Myelosuppression attributed to recent chemotherapy with Taxol, continue to follow-up CBC -Oncology following; may start on Neupogen if neutropenic on consistent labs, will get port study when more stable Continue to follow-up CBCs (3) Pneumonia Code(s): J18.9 - Pneumonia, unspecified organism Status: Acute Plan: Patient states that her cough has gotten better today, ID following, treating for pneumonia as follows Continue treatment for nosocomial pneumonia, jail related D/c IV Zosyn per ID Continue Flonase nasal spray Continue duo nebs scheduled every 4 hours Patient doing incentive spirometer Patient saturating well on room air. CXR 05/19: stable from previous Chest x-ray 05/16: Bilateral parenchymal infiltrates Chest x-ray 05/12: No change Chest x-ray 05/11: Right upper lobe consolidation most characteristic of pneumonia (4) Hypokalemia Code(s): E87.6 - Hypokalemia Status: Resolved Plan: Resolved as potassium increased from 3.2 to 3.9. Stable (5) SIRS (systemic inflammatory response syndrome) Code(s): R65.10 - Systemic inflammatory response syndrome (SIRS) of non- infectious origin without acute organ dysfunction Status: Acute Plan: Resolved On 05/12: Signs of severe sepsis with altered mental status, tachycardia, hypotension, skin mottling Transferred to ICU on 05/12 at 1400, with NG tube placement and GI management of severe resistant C. difficile. Possible source of sepsis includes pneumonia, C. difficile colitis, bacteremia IV Vanc, Zosyn, and PO Flagyl (05/11-05/12) Per consult with ID, GI and Critical Care MD, Continue on IV Zosyn, with PO Vanc and PO Dificid (05/12 - ) Chest x-ray 05/13-05/14 shows right upper lobe opacity, CXR clear of opacity today Repeat CT abdomen showed no change, possible pyelonephritis (ID dw with rads and likely not pyelo), possible mild colitis of transverse colon Venous Doppler negative, low suspicion for PE at this time given improvement with IV fluids and NG tube placement Blood cultures negative 2 day WBC stable Pending CBC, CMP today, problems with IV access ID recommendation; Cont Zosyn x 7 days (05/12 -05/19) to cover for PNA On admission HR:143, RR:28, Bands: 18. Meets 3 out of 5 SIRS criteria. Unknown source of infection. Vancomycin and Zosyn added empirically for coverage. UA and Culture ordered. UA negative, f/u uCx Chest Xray: Right upper lobe consolidation CT of abdomen x 2; probable pyelonephritis as above, versus interstitial nephritis versus renal infarction versus renal lymphoma. 5 mm calcification could represent appendicolith Lipase negative Follow-up sputum culture. Urine strep pneumo antigen and Legionella antigens negative (6) Murmur Code(s): R01.1 - Cardiac murmur, unspecified Status: Acute Plan: Grade 1 out of 5 systolic murmur appreciated on physical exam. Patient states that she was diagnosed with a murmur in the past when questioned. Patient stated that she got an echocardiogram while at [place] We will consider getting an echocardiogram once C. difficile and pneumonia have resolved.. (7) Pyelonephritis Code(s): N12 - Tubulo-interstitial nephritis, not specified as acute or chronic Status: Acute Plan: Possible pyelonephritis on CT versus renal infarction ID discussed w RADS, likely not pyelo (8) Metastatic breast cancer Code(s): C50.919 - Malignant neoplasm of unspecified site of unspecified female breast Status: Chronic Plan: Currently followed by Dr. Zuñiga, oncology. Spoke with Dr. Ayers, follow-up with Dr. Zuñiga CT of abdomen with contrast: no additional tumors revealed CT head w/ and w/out IV contrast: No evidence of brain metastases. Stable chronic white matter ischemic changes Continue to treat for infxn Oncology consulted. Appreciate recommendations. (9) Nutrition, metabolism, and development symptoms Code(s): R63.8 - Other symptoms and signs concerning food and fluid intake Status: Acute Plan: Fluids: tolerating PO Electrolytes: Monitor and Replete as needed, watching low glucose and low calcium Diet: soft diet (10) DVT prophylaxis Status: Acute Plan: Lovenox 40 subcu daily <Carloz Can 05/20/18 10:35> - Assessment and Plan 68-year-old female currently undergoing chemotherapy for metastatic breast cancer , and severe sepsis with excessive tachycardia, vomiting and diarrhea, and pneumonia, C. difficile positive with pyelonephritis on CT. <Carloz Can 05/20/18 10:40> Discharge Planning: Will need SNF upon discharge <Carloz Can 05/20/18 10:40> - Attending Attestation The exam, history, and the medical decision-making described in the above note were completed with the assistance of the resident physician. I reviewed and agree with the findings presented. I attest that I had a [id number] encounter with the patient on the same day, and personally performed and documented my assessment and findings in the medical record. She is ready to move out to a general medical floor and start to mobilize little bit more get rid of her rectal tube and see what she needs in the way of rehab. <Renata Sanchez - 05/20/18 10:49>
--- NOTE | 2018-05-20 10:45 | P.PNADD ---
Addendum to Inpatient Note Additional information: 68-year-old female who was undergoing chemotherapy for metastatic breast cancer presented to the emergency room with vomiting and diarrhea for 1 day with altered mental status. She was placed on Levaquin by her rehab facility the day before for an unknown reason. Met SIRS on admission HR:143, RR:28, Bands: 18. Meets 3 out of 5 SIRS criteria. Unknown source of infection. She was leukopenic with a white blood cell count of 3.3. Had MARIELA with creatinine of 1.19. CT showed possible pyelonephritis. She was started on vancomycin and Zosyn, IV fluids. Overnight on day 1 of admission, patient had a drop in blood pressure of 93/65. Halicat was called and patient was transferred to the ICU for better blood pressure monitoring. Repeat chest x-ray showed a developing pneumonia. She became C. difficile positive with epit 027(virulent strain), GI was consulted recommended switching IV Vanc to PO Vanc and PO dificid. The laborer aquatic life recommended to add an additional azithromycin for her pneumonia. Azithromycin was DC'd after pneumococcal and U urine Legionella antigens were negative. During her ICU course, she continued to be acidotic requiring fluids and a bicarbonate drip and a NG tube was placed for her worsening GI symptoms. She continued to have associated electrolyte abnormalities hypokalemia, hypophosphatemia, hypomagnesia and these electrolytes were frequently replaced during her hospital course. Oncology recommended to discontinue her chemotherapy and would reevaluate when she was medically stable considering changing her Chemo-Port once stable. Over her hospital course, patient's altered mental status improved, NG tube was removed, and patient is now stable, her leukopenia, MARIELA and electrolyte abnormalities have resolved. She is still followed by infectious disease, who recommends to continue with vancomycin p.o. and Dificid and IV Zosyn. The rectal bag still drains green liquid fluid, continue to monitor, patient will be trailing using bedside commode moving forward. Continue to monitor electrolyte abnormalities. She is to be transferred to the regular floor.
[2018-05-20] MEDS: Enoxaparin Inj 40 MG/0.4 ML Syringe SQ SCH (15:11)
[2018-05-20] MEDS ORDERED: Vancomycin Consult Pharmacy 1 EACH OTHER SCH (17:00)
[2018-05-20] MEDS: Vancomycin Inj 1,250 MG in Sodium Chlor 0.9% Inj 250 ML IV.SIG SCH (17:45)
--- NOTE | 2018-05-20 19:19 | P.PNADD ---
Addendum to Inpatient Note Additional information: Pt see anjel 4 pm full note to follow
--- NOTE | 2018-05-20 23:39 | P.PNID ---
Subjective Remarks: delayed entry afebrile on RA co slight cough sputum grew MRSA no abd pain Antibiotics: vanco po dificid Allergies/Adverse Reactions: Allergies hydromorphone [From Dilaudid] Adverse Reaction (Intermediate, Verified 05/11/18 10:38) Dizziness Objective Vital Signs 05/20/18 00:00 05/20/18 01:31 05/20/18 04:00 Temperature 99.8 F H 99.3 F Pulse Rate 98 H 95 H 96 H Respiratory Rate 40 H 20 38 H Blood Pressure 122/59 L 145/63 H Pulse Oximetry 95 97 05/20/18 07:46 05/20/18 08:00 05/20/18 12:00 Temperature 98.7 F 98.5 F Pulse Rate 91 H 95 H Respiratory Rate 30 H Blood Pressure 137/65 146/75 H Pulse Oximetry 96 97 05/20/18 16:00 05/20/18 20:00 Temperature 98.9 F 98.7 F Pulse Rate 97 H 96 H Respiratory Rate 28 H 30 H Blood Pressure 138/62 115/56 L Pulse Oximetry 97 100 Intake & Output 05/20/18 05/20/18 05/21/18 06:59 18:59 06:59 Intake Total 880 / 880 900 / 900 Output Total 1350 / 1350 1700 / 1700 Balance -470 / -470 -800 / -800 Weight 113.5 kg 113.3 kg Intake: IV 500 / 500 500 / 500 D10W Inj 500 ML @ 50 mls/hr IV. 500 / 500 500 / 500 SIG .Q10H [facility] Rx#:[id number] Oral 380 / 380 400 / 400 Output: Urine 1000 / 1000 Stool 350 / 350 700 / 700 Urine Amount (Catheter) 1000 / 1000 Female External 1000 / 1000 Other: Date of Last Bowel Movement 05/20/18 05/20/18 05/20/18 05/18/18 21:45 Sputum - Expectorated Sputum Gram Stain - Final 05/18/18 21:45 Sputum - Expectorated Sputum Sputum Culture - Preliminary S. aureus MRSA Lab - Hematology Results 05/19/18 05/20/18 20:20 06:20 WBC 9.8 9.4 RBC 3.32 L 3.25 L Hgb 10.0 L 9.9 L Hct 30.8 L 30.2 L MCV 92.8 93.0 MCH 30.0 30.6 MCHC 32.3 32.9 RDW 22.4 H 22.4 H Plt Count 126 L 129 L MPV 9.8 9.4 Prelim Diff (Auto) Manual diff required Manual diff required WBC Differential Manual diff final Manual diff final Seg Neuts % (Manual) 62 52 Band Neuts % (Manual) 15 H 18 H Lymphocytes % (Manual) 8 L 5 L Monocytes % (Manual) 8 5 Metamyelocytes % (Man) 6 H 14 H Myelocytes % (Man) 1 H 6 H Abs Neuts (Manual) 8.2 H 8.5 H Nucleated RBCs/100 WBC 2 H 1 H Differential Comment . . Toxic Granulation 3+ H 1+ H Platelet Estimate Low L Low L Platelet Morphology Enlarged H Normal Ovalocytes 1+ H Acanthocytes (Spur) Occ H Lab - Chemistry Results 05/19/18 05/19/18 05/19/18 07:44 11:46 16:26 Sodium Potassium Chloride Carbon Dioxide Anion Gap BUN Creatinine Estimated GFR POC Glucose 126 H 103 100 Random Glucose Calcium Prot Corrected Calcium Phosphorus Total Bilirubin AST ALT Alkaline Phosphatase Total Protein Albumin 05/19/18 05/19/18 05/19/18 20:20 20:20 20:52 Sodium 138 Potassium 3.8 Chloride 107 Carbon Dioxide 22.7 Anion Gap 8 BUN 3 L Creatinine 0.67 Estimated GFR 88 L POC Glucose 110 Random Glucose 108 H Calcium 7.2 L* Prot Corrected Calcium 8.3 L Phosphorus 1.5 L Total Bilirubin 0.6 AST 18 ALT 22 Alkaline Phosphatase 204 H Total Protein 5.1 L Albumin 1.6 L 05/20/18 05/20/18 05/20/18 06:20 06:20 07:32 Sodium 136 Potassium 3.9 Chloride 107 Carbon Dioxide 20.0 L Anion Gap 9 BUN 3 L Creatinine 0.52 Estimated GFR Greater than 89 POC Glucose 73 Random Glucose 99 Calcium 7.2 L* Prot Corrected Calcium 8.2 L Phosphorus 1.9 L Total Bilirubin 0.5 AST 21 ALT 22 Alkaline Phosphatase 217 H Total Protein 5.2 L Albumin 1.6 L 05/20/18 05/20/18 05/20/18 12:12 16:16 20:48 Sodium Potassium Chloride Carbon Dioxide Anion Gap BUN Creatinine Estimated GFR POC Glucose 129 H 100 115 H Random Glucose Calcium Prot Corrected Calcium Phosphorus Total Bilirubin AST ALT Alkaline Phosphatase Total Protein Albumin Imaging: ITS Impressions Chest CT 05/12/18 00:00 CONCLUSION: 1. Confluent opacity in the right upper lobe that is new when compared to the prior study 2016. Morphology would favor scarring. There is mild associated bronchiectasis. More acute consolidation is also in the differential diagnosis. Neoplasm would be less likely but is in the differential diagnosis. Recommend a follow-up noncontrast chest CT confirm stability or resolution in 3 months. 2. Minimal nonspecific groundglass opacity in the left upper lobe. The prominent bilateral groundglass opacity seen on prior study of 2017 is not seen on today's study. Head CT 05/12/18 00:00 CONCLUSION: 1. No acute intracranial abnormalities. Stable chronic white matter ischemic changes. . Venous Doppler Study 05/12/18 00:00 CONCLUSION: No evidence of lower extremity DVT on the right or left. Abdomen/Pelvis CT 05/12/18 15:00 CONCLUSION: 1. Questionable mild mural thickening of the colon that could indicate a mild colitis, especially transverse colon. 2. Heterogeneous renal parenchymal enhancement not as optimally evaluated as on prior study. Cannot exclude pyelonephritis. 3. Bhagat catheter in decompressed bladder. 4. Hiatal hernia. 5. Moderate coronary calcifications. Abdomen X-Ray 05/12/18 21:10 CONCLUSION: Nasogastric tube in the stomach with the tip at the gastroesophageal junction. Chest X-Ray 05/19/18 06:00 CONCLUSION: Stable chest x-ray with right upper lobe and left basilar opacity. Physical Exam: GENERAL: NAD On RA SKIN: Warm and dry. HEAD: Atraumatic. Normocephalic. EYES: Pupils equal and round. No scleral icterus. No injection or drainage. ENT: No nasal bleeding or discharge. Mucous membranes pink and moist. NECK: Trachea midline. No JVD. CARDIOVASCULAR: Regular rate and rhythm. RESPIRATORY: No accessory muscle use. Few scattered rhonchi to auscultation. Breath sounds equally diminished bilaterally. GASTROINTESTINAL: Abdomen soft, non-tender, moderately distended. Hepatic and splenic margins not palpable. MUSCULOSKELETAL: Extremities without clubbing, cyanosis, or edema. No obvious deformities. well prefused hands and feet NEUROLOGICAL: Awake and alert. No obvious cranial nerve deficits. Motor grossly within normal limits. Five out of 5 muscle strength in the arms and legs. Normal speech. PSYCHIATRIC: Appropriate mood and affect; insight and judgment normal. Assessment and Plan - Plan Metastatic breadst Ca sp chemo Mildly cytopenic, liklely suppressed from chemo - improved WBC to 3700 Hypervirulent 027 C.diff Severe sepsis: likely C/diff ? R side pyelo, though UA, clin presntation not cw pyelo PNA, w multilobar with LLL and RUL infiltrates - was 1 week on pip-tazo Sputum + for MRSA ARF - imnproved with IVF resuscitation cont po vanco cont Dificid start vanco IV repeat CXR
[2018-05-21] MEDS: Vancomycin Inj 1,250 MG in Sodium Chlor 0.9% Inj 250 ML IV.SIG SCH ×3 (03:12→18:38)
[2018-05-21] MEDS: Dextrose 10% in Water Inj 500 ML IV.SIG SCH ×3 (03:13→23:04)
--- NOTE | 2018-05-21 07:06 | XR ---
EXAM DATE: 05/21/2018 7:00 AM EDT AGE/SEX: 68 years / Female INDICATIONS: Cough, short of breath CLINICAL DATA: This is the patient's subsequent encounter. Patient reports that signs and symptoms h ave been present for 1 week and indicates a pain score of 0/10. MEDICAL/SURGICAL HISTORY: Carcinoma, breast. Metastatic disease. Sepsis. pneumonia Mastecto my, left. infusaport, bilateral knee replacements, ORIF left femur COMPARISON: [facility], CHEST 1V SINGLE AP, 05/19/2018. . FINDINGS: A single AP view of the chest was performed. Slight interval improvement in airspace opacities in the right upper lobe and left lung base. No appreciable pleural effusion or pneumothorax. Stable cardiom ediastinal silhouette. Right IJ chest port in stable position. CONCLUSION: Slight interval improvement in airspace opacities in the right upper lobe and left lung base. Electronically signed by: Radha Holbrook MD 05/21/2018 7:05 AM EDT
[2018-05-21 07:09] LABS: Anion Gap 7 meq/L (5-15); Blood Urea Nitrogen 4 mg/dL (7-18); Calcium 7.4 mg/dL (8.5-10.1); Carbon Dioxide 21.6 meq/L (21.0-32.0); Chloride 112 meq/L (98-107); Glomerular Filtration Rate Greater Than 89 mL/min (>89); Glucose,Random 131 mg/dL (74-106); Potassium 3.8 meq/L (3.5-5.1); Sodium 141 meq/L (136-145)
[2018-05-21 07:25] LABS: Total Protein 5.1 g/dL (6.4-8.2)
[2018-05-21 07:50] LABS: Baso % (Auto) 0.4 % (0.0-2.0); Eos % (Auto) 0.1 % (0.0-4.0); Hematocrit 30.7 % (35.0-46.0); Hemoglobin 10.1 gm/dL (11.6-15.3); Lymph # (Auto) 0.7 th/mm3 (1.0-4.8); Lymph % (Auto) 8.9 % (9.0-44.0); Mean Corpuscular HGB Conc 32.8 % (32.0-36.0); Mean Corpuscular Hemoglobin 30.2 pg (27.0-34.0); Mean Corpuscular Volume 92.3 fL (80.0-100.0); Mean Platelet Volume 9.6 fL (7.0-11.0); Mono # (Auto) 0.2 th/mm3 (0.0-0.9); Neut # (Auto) 7.2 th/mm3 (1.8-7.7); Neut % (Auto) 87.6 % (16.0-70.0); Platelet Count 136 th/mm3 (150-450); Red Blood Count 3.33 mil/mm3 (4.00-5.30); Red Cell Distribution Width 22.5 % (11.6-17.2); White Blood Count 8.2 th/mm3 (4.0-11.0)
[2018-05-21 08:51] LABS: Lymphocytes 6 % (9-44); Metamyelocytes 6 % (0-1); Monocytes 3 % (0-8); Myelocytes 4 % (0-0); Ovalocytes 1+; Promyelocyte 4 % (0-0); Spherocytes Occ; Tallied Nucleated RBC 1 (0-0); Toxic Granulation 1+
[2018-05-21 08:52] LABS: Platelet Morphology Normal (Normal)
[2018-05-21] MEDS: Insulin NovoLOG Aspart Correctional Sugar Inj SQ SCH ×4 (10:12→23:05)
--- NOTE | 2018-05-21 11:23 | P.PNFP ---
Subjective Interval history: Patient seen and examined this morning. She states that she is doing well, no complaints. No fevers or chills, no chest pain, no shortness of breath, slight productive cough on and off, no nausea or vomiting. She had 1 -2 stools yesterday. However, she was unable to get to the bedside commode. She still feels weak, but is eager to get stronger. <Carley Crowe - 05/21/18 11:41> Results - Labs Result diagrams: 05/23/18 06:21 05/23/18 06:21 <Renata Sanchez - 05/23/18 16:09> Abnormal lab results 05/22/18 05/22/18 05/23/18 Range/Units 15:53 19:50 06:21 RBC 3.26 L (4.00-5.30) mil/mm3 Hgb 10.2 L (11.6-15.3) gm/dL Hct 30.0 L (35.0-46.0) % RDW 22.1 H (11.6-17.2) % Plt Count 142 L (150-450) th/mm3 Neut % (Auto) (16.0-70.0) % Callaway % (Auto) (0.0-8.0) % Lymph # (Auto) (1.0-4.8) th/mm3 Band Neuts % (Manual) 16 H (0-6) % Lymphocytes % (Manual) 2 L (9-44) % Metamyelocytes % (Man) 4 H (0-1) % Myelocytes % (Man) 6 H (0-0) % Toxic Granulation 1+ H (None) Platelet Estimate Low L (Normal) Spherocytes Occ H (None) Ovalocytes 1+ H (None) Potassium 3.0 L (3.5-5.1) meq/L Chloride 110 H (98-107) meq/L Carbon Dioxide 18.2 L (21.0-32.0) meq/L BUN 5 L (7-18) mg/dL Estimated GFR 88 L (>89) mL/min POC Glucose 125 H (68-110) mg/dl Calcium 7.1 L* (8.5-10.1) mg/dL Prot Corrected Calcium 8.2 L (8.5-10.1) mg/dL Alkaline Phosphatase 235 H (45-117) U/L Total Protein 5.1 L (6.4-8.2) g/dL Albumin 1.6 L (3.4-5.0) g/dL 05/23/18 05/23/18 Range/Units 06:21 12:24 RBC 3.03 L (4.00-5.30) mil/mm3 Hgb 9.4 L (11.6-15.3) gm/dL Hct 28.2 L (35.0-46.0) % RDW 22.8 H (11.6-17.2) % Plt Count 127 L (150-450) th/mm3 Neut % (Auto) 71.5 H (16.0-70.0) % Callaway % (Auto) 13.6 H (0.0-8.0) % Lymph # (Auto) 0.9 L (1.0-4.8) th/mm3 Band Neuts % (Manual) (0-6) % Lymphocytes % (Manual) (9-44) % Metamyelocytes % (Man) 3 H (0-1) % Myelocytes % (Man) 7 H (0-0) % Toxic Granulation 1+ H (None) Platelet Estimate Low L (Normal) Spherocytes (None) Ovalocytes 1+ H (None) Potassium (3.5-5.1) meq/L Chloride (98-107) meq/L Carbon Dioxide (21.0-32.0) meq/L BUN (7-18) mg/dL Estimated GFR (>89) mL/min POC Glucose 118 H (68-110) mg/dl Calcium (8.5-10.1) mg/dL Prot Corrected Calcium (8.5-10.1) mg/dL Alkaline Phosphatase (45-117) U/L Total Protein (6.4-8.2) g/dL Albumin (3.4-5.0) g/dL Short CBC 18 05/23/18 Range/Units 15:53 06:21 WBC 8.2 6.6 (4.0-11.0) th/mm3 Hgb 10.2 L 9.4 L (11.6-15.3) gm/dL Hct 30.0 L 28.2 L (35.0-46.0) % Plt Count 142 L 127 L (150-450) th/mm3 BMP 05/23/18 06:21 Sodium 139 Potassium 3.0 L Chloride 110 H Carbon Dioxide 18.2 L BUN 5 L Creatinine 0.67 Calcium 7.1 L* Liver Function 05/23/18 Range/Units 06:21 Total Bilirubin 0.5 (0.2-1.0) mg/dL AST 19 (15-37) U/L ALT 19 (10-53) U/L Alkaline Phosphatase 235 H (45-117) U/L Albumin 1.6 L (3.4-5.0) g/dL <Renata Sanchez - 05/23/18 16:09> Abnormal lab results 05/20/18 05/20/18 05/21/18 Range/Units 12:12 20:48 04:55 RBC 3.33 L (4.00-5.30) mil/mm3 Hgb 10.1 L (11.6-15.3) gm/dL Hct 30.7 L (35.0-46.0) % RDW 22.5 H (11.6-17.2) % Plt Count 136 L (150-450) th/mm3 Neut % (Auto) 87.6 H (16.0-70.0) % Lymph % (Auto) 8.9 L (9.0-44.0) % Lymph # (Auto) 0.7 L (1.0-4.8) th/mm3 Band Neuts % (Manual) 18 H (0-6) % Lymphocytes % (Manual) 6 L (9-44) % Metamyelocytes % (Man) 6 H (0-1) % Myelocytes % (Man) 4 H (0-0) % Promyelocytes % (Man) 4 H (0-0) % Nucleated RBCs/100 WBC 1 H (0-0) /100 WBC Toxic Granulation 1+ H (None) Platelet Estimate Low L (Normal) Spherocytes Occ H (None) Ovalocytes 1+ H (None) Chloride (98-107) meq/L BUN (7-18) mg/dL POC Glucose 129 H 115 H (68-110) mg/dl Random Glucose (74-106) mg/dL Calcium (8.5-10.1) mg/dL Total Protein (6.4-8.2) g/dL 05/21/18 05/21/18 Range/Units 04:55 09:52 RBC (4.00-5.30) mil/mm3 Hgb (11.6-15.3) gm/dL Hct (35.0-46.0) % RDW (11.6-17.2) % Plt Count (150-450) th/mm3 Neut % (Auto) (16.0-70.0) % Lymph % (Auto) (9.0-44.0) % Lymph # (Auto) (1.0-4.8) th/mm3 Band Neuts % (Manual) (0-6) % Lymphocytes % (Manual) (9-44) % Metamyelocytes % (Man) (0-1) % Myelocytes % (Man) (0-0) % Promyelocytes % (Man) (0-0) % Nucleated RBCs/100 WBC (0-0) /100 WBC Toxic Granulation (None) Platelet Estimate (Normal) Spherocytes (None) Ovalocytes (None) Chloride 112 H (98-107) meq/L BUN 4 L (7-18) mg/dL POC Glucose 115 H (68-110) mg/dl Random Glucose 131 H (74-106) mg/dL Calcium 7.4 L* (8.5-10.1) mg/dL Total Protein 5.1 L (6.4-8.2) g/dL Short CBC 05/21/18 Range/Units 04:55 WBC 8.2 (4.0-11.0) th/mm3 Hgb 10.1 L (11.6-15.3) gm/dL Hct 30.7 L (35.0-46.0) % Plt Count 136 L (150-450) th/mm3 [facility] 05/21/18 04:55 Sodium 141 Potassium 3.8 Chloride 112 H Carbon Dioxide 21.6 BUN 4 L Creatinine 0.53 Calcium 7.4 L* <Carley Crowe - 05/21/18 11:23> - Imaging Impressions Chest X-Ray 05/21/18 06:00 CONCLUSION: Slight interval improvement in airspace opacities in the right upper lobe and left lung base. <Carley Crowe - 05/21/18 11:23> Physical Exam Vital signs: Vital Signs 05/22/18 16:00 05/22/18 17:30 05/22/18 19:45 Temperature 97.7 F Pulse Rate 83 95 H Respiratory Rate 18 Blood Pressure 155/82 H Pulse Oximetry 99 99 05/22/18 20:00 05/22/18 23:50 05/23/18 00:00 Temperature 97.9 F 97.8 F Pulse Rate 90 87 80 Respiratory Rate 20 19 Blood Pressure 180/70 H 111/60 Pulse Oximetry 99 99 05/23/18 03:45 05/23/18 04:00 05/23/18 08:00 Temperature 97.4 F L 97.5 F L Pulse Rate 92 H 84 84 Respiratory Rate 20 16 Blood Pressure 123/76 116/63 Pulse Oximetry 99 99 05/23/18 12:00 Temperature 97.9 F Pulse Rate 98 H Respiratory Rate 18 Blood Pressure 129/84 Pulse Oximetry 100 Intake & Output 05/22/18 05/23/18 05/23/18 18:59 06:59 18:59 Intake Total 567 / 567 1034 / 1034 203 / 203 Output Total 1200 / 1200 Balance -633 / -633 1034 / 1034 Weight 112 kg Intake: IV / 207 554 / 554 / D10W Inj 500 ML @ 50 mls/hr IV. 207 / 207 554 / 554 / 203 SIG .Q10H [facility] Rx#:[id number] Oral 360 / 360 480 / 480 Output: Urine 1200 / 1200 Other: # Voids 3 Date of Last Bowel Movement 05/22/18 # Bowel Movements 2 <Renata Sanchez M - 05/23/18 16:09> Vital Signs 05/20/18 12:00 05/20/18 16:00 05/20/18 20:00 Temperature 98.5 F 98.9 F 98.7 F Pulse Rate 95 H 97 H 96 H Respiratory Rate 28 H 30 H Blood Pressure 146/75 H 138/62 115/56 L Pulse Oximetry 97 100 05/20/18 23:47 05/20/18 23:53 05/21/18 04:00 Temperature 98.7 F 97.7 F Pulse Rate 89 97 H 91 H Respiratory Rate 20 20 Blood Pressure 142/66 H 137/63 Pulse Oximetry 96 93 L 05/21/18 04:05 05/21/18 08:00 Temperature 97.8 F Pulse Rate 89 92 H Respiratory Rate 20 Blood Pressure 131/64 Pulse Oximetry 99 Intake & Output 05/20/18 05/21/18 05/21/18 18:59 06:59 18:59 Intake Total 900 / 900 240 / 240 Output Total 1700 / 1700 2 / 2 Balance -800 / -800 240 / 240 -2 / -2 Weight 111.8 kg Intake: IV 500 / 500 D10W Inj 500 ML @ 50 mls/hr IV. 500 / 500 SIG .Q10H [facility] Rx#:[id number] Oral 400 / 400 240 / 240 Output: Urine 1000 / 1000 Stool 700 / 700 Other: # Voids 2 Date of Last Bowel Movement 05/20/18 05/20/18 05/21/18 # Bowel Movements 2 <Carley Crowe - 05/21/18 11:23> Narrative: GENERAL: elderly obese white female sitting up in bed, in no acute distress SKIN: Warm and dry. CARDIOVASCULAR: Regular rate and rhythm. RESPIRATORY: No accessory muscle use. Clear to auscultation. Decreased breath sounds. GASTROINTESTINAL: Abdomen soft, non-tender, nondistended. MUSCULOSKELETAL: Extremities without clubbing, cyanosis, or edema. No obvious deformities. NEUROLOGICAL: Awake and alert. No obvious cranial nerve deficits. Motor grossly within normal limits. Normal speech. PSYCHIATRIC: Appropriate mood and affect; insight and judgment normal. <Carley Crowe - 05/21/18 11:41> - Urinary Catheter Management Female External Cath placed during this visit: no <Renata Sanchez - 05/23/18 15:37> no <Carley Crowe - 05/21/18 14:15> Indwelling Urethral Catheter Cath placed during this visit: no <Renata Sanchez - 05/23/18 15:37> yes, but has since been removed by the nurse <Carley Crowe - 05/21/18 14:15> Reason for continuing: Continue criteria not met <Carley Crowe - 05/21/18 11: 23> Insertion date: 05/12/18 <Carley Crowe - 05/21/18 11:23> Insertion time: 15:00 <Carley Crowe - 05/21/18 11:23> Removal date: 05/14/18 <Carley Crowe - 05/21/18 11:23> Removal time: 17:28 <Carley Crowe - 05/21/18 11:23> Assessment and Plan - Assessment (1) C. difficile colitis Code(s): A04.72 - Enterocolitis due to Clostridium difficile, not specified as recurrent Status: Acute (2) Pneumonia Code(s): J18.9 - Pneumonia, unspecified organism Status: Acute (3) Cytopenia Code(s): D75.9 - Disease of blood and blood-forming organs, unspecified Status : Resolved (4) Murmur Code(s): R01.1 - Cardiac murmur, unspecified Status: Acute (5) Metastatic breast cancer Code(s): C50.919 - Malignant neoplasm of unspecified site of unspecified female breast Status: Chronic (6) Nutrition, metabolism, and development symptoms Code(s): R63.8 - Other symptoms and signs concerning food and fluid intake Status: Acute (7) DVT prophylaxis Status: Acute <Renata Sanchez - 05/23/18 16:09> (1) C. difficile colitis Code(s): A04.72 - Enterocolitis due to Clostridium difficile, not specified as recurrent Status: Acute Plan: C. difficile positive, epit 027 positive. Rectal tube d/c'd on 05/20. BMs have significantly decreased. Dificid and vancomycin p.o Protonix 40 mg IV daily. Zofran 8 mg IV q8h for Nausea s/p Flagyl 500 mg p.o. (05/11-05/12) Follow-up recommendations of GI; -Mild colitis of transverse colon on CT -Patient may require stool transfer versus immunotherapy, poor prognosis -GI has signed off: Can continue to follow ID recommendations for treatment and have patient follow-up with GI after discharge as an outpatient. Continue to monitor CMP for any electrolyte abnormalities due to vomiting and diarrhea. (2) Pneumonia Code(s): J18.9 - Pneumonia, unspecified organism Status: Acute Plan: Nosocomial pneumonia, mcc related. Patient states that her cough has gotten better today. Vancomycin IV (05/20- ) Zosyn IV (05/12 -05/19) Sputum cx: MRSA CXR 05/19: stable from previous Chest x-ray 05/16: Bilateral parenchymal infiltrates Chest x-ray 05/12: No change Chest x-ray 05/11: Right upper lobe consolidation most characteristic of pneumonia CXR 05/21: Slight interval improvement in airspace opacities in the right upper lobe and left lung base. ID consulted, appreciate recommendations -Start Vancomycin IV Continue Flonase nasal spray Continue duo nebs scheduled every 4 hours Incentive spirometer (3) Cytopenia Code(s): D75.9 - Disease of blood and blood-forming organs, unspecified Status : Resolved Plan: Leukopenia resolved, now stable Myelosuppression attributed to recent chemotherapy with Taxol, continue to follow-up CBC -Oncology following; may start on Neupogen if neutropenic on consistent labs, will get port study when more stable (4) Murmur Code(s): R01.1 - Cardiac murmur, unspecified Status: Acute Plan: Grade 1 out of 5 systolic murmur appreciated on physical exam. Patient states that she was diagnosed with a murmur in the past. Echo in 04/2017 showed no concerning findings (5) Metastatic breast cancer Code(s): C50.919 - Malignant neoplasm of unspecified site of unspecified female breast Status: Chronic Plan: Currently followed by Dr. Zuñiga, oncology. Spoke with Dr. Ayers, follow-up with Dr. Zuñiga CT of abdomen with contrast: no additional tumors revealed CT head w/ and w/out IV contrast: No evidence of brain metastases. Stable chronic white matter ischemic changes Continue to treat for infection Oncology consulted, Appreciate recommendations. Consult to interventional radiology to have the infusaport evaluated (6) Nutrition, metabolism, and development symptoms Code(s): R63.8 - Other symptoms and signs concerning food and fluid intake Status: Acute Plan: Fluids: tolerating PO Electrolytes: Monitor and Replete as needed Diet: soft diet (7) DVT prophylaxis Status: Acute Plan: Lovenox 40 subcu daily <Carley Crowe 05/21/18 14:15> - Assessment and Plan 68-year-old female currently undergoing chemotherapy for metastatic breast cancer admitted for severe sepsis with pneumonia and C. difficile colitis <Carley Crowe 05/21/18 14:14> Discussed Condition With: SDW Dr. York, Dr. Sanchez <Carley Crowe 05/21/18 14:14> Discharge Planning: likely to rehab, working with Case Management for options <Carley Crowe - 05/21/18 14:14> - Attending Attestation The exam, history, and the medical decision-making described in the above note were completed with the assistance of the resident physician. I reviewed and agree with the findings presented. I attest that I had a [id number] encounter with the patient on the same day, and personally performed and documented my assessment and findings in the medical record. Ms Sellers is motivated to get better. She wants to gain her strength back and is a good candidate for [facility] <Renata Sanchez - 05/23/18 15:37>
[2018-05-21] MEDS ORDERED: Iohexol 350 MG/ML 50 ML Vial (for Rad Diag) IVCONTRAST ONE (11:49)
--- NOTE | 2018-05-21 12:22 | IR ---
EXAM DATE: 05/21/2018 12:12 PM EDT AGE/SEX: 68 years / Female INDICATIONS: Patient presents with a history of metastatic breast carcinoma in need of port patency injection due to lack of blood return. CLINICAL DATA: This is the patient's initial encounter. Patient reports that signs and symptoms have been present for 1 week and indicates a pain score of 0/10. MEDICAL/SURGICAL HISTORY: . HTN, CHF, COPD, GERD, Boone's esophagus, MRSA HX, Left breast can cer, Lytic lesion left femur, C-spine mass, . Left breast biopsy and mastectomy, lymph node dissecti on, Bilateral knee replacement, Left femur ORIF. COMPARISON: No prior exams available for comparison. FLUORO TIME (min): 0.26 IMAGE SERIES: 1 ACCESS SITE: CONTRAST (cc): 10cc Omnipaque (iohexol) 350 DEVICE(S): . . PROCEDURE : 1. Access of [id number]. 2. Port patency injection. The risks, benefits and alternatives to the procedure were explained and verbal and written consent w as obtained. The patient was placed supine. The port was prepped in sterile fashion. Full sterile t echnique was used, including cap, mask, sterile gloves and gown, and a large sterile sheet. Hand hyg iene and 2% chlorhexidine prep was utilized per protocol for cutaneous antisepsis with appropriate dr y time for site. The previously placed port was accessed and positive contrast was injected for evaluation. Injection demonstrates fibrin sheath at the tip of the catheter with likely associated thrombus. Contrast does flow beyond and opacifies the right atrium.. CONCLUSION: 1. Focal fibrin sheath and associated thrombus at the port catheter tip. Catheter is otherwise paten t with flow extending into right atrium. Plan: If port aspiration remains essential to continued clinical care, treatment options include stri pping of the existing catheter or more ideally placement of a new [id number]. Electronically signed by: Luis Smith MD 05/21/2018 12:20 PM EDT
[2018-05-21] MEDS: Enoxaparin Inj 40 MG/0.4 ML Syringe SQ SCH (14:58)
[2018-05-21] MEDS ORDERED: Pharmacy Ordered Lab Info OTHER ONE (17:45)
[2018-05-22] MEDS ORDERED: Pharmacy Ordered Lab Info OTHER ONE (01:45)
[2018-05-22] MEDS: Dextrose 10% in Water Inj 500 ML IV.SIG SCH ×4 (02:00→23:42)
[2018-05-22] MEDS: Vancomycin Inj 1,250 MG in Sodium Chlor 0.9% Inj 250 ML IV.SIG SCH (02:21)
[2018-05-22] MEDS: Insulin NovoLOG Aspart Correctional Sugar Inj SQ SCH ×4 (10:10→21:45)
--- NOTE | 2018-05-22 11:12 | P.PNONC ---
Subjective Interval history: Afebrile Patient reports she continues to feel stronger Only had one bowel movement this morning Adamant that she continues to want to be aggressive for her metastatic breast cancer She is currently being evaluated for rehab placement Objective Vital Signs/Intake & Output: Vital Signs 05/21/18 12:00 05/21/18 16:00 05/21/18 20:00 Temperature 97.4 F L 97 F L 97.3 F L Pulse Rate 92 H 114 H 87 Respiratory Rate 20 20 16 Blood Pressure 154/74 H 145/64 H 134/60 Pulse Oximetry 100 99 99 05/21/18 20:20 05/21/18 20:34 05/22/18 00:00 Temperature 97.5 F L Pulse Rate 84 91 H Respiratory Rate 16 Blood Pressure 128/60 Pulse Oximetry 97 98 05/22/18 04:00 05/22/18 08:00 05/22/18 09:57 Temperature 97.2 F L 97.6 F Pulse Rate 87 88 Respiratory Rate 18 17 Blood Pressure 126/64 124/75 Pulse Oximetry 100 100 98 Intake & Output 05/21/18 05/22/18 05/22/18 18:59 06:59 18:59 Intake Total 1122.5 / 1122.5 1785.5 / 1785.5 Output Total 4 / 4 825 / 825 Balance 1118.5 / 1118.5 960.5 / 960.5 Weight 247 lb 5.738 oz Intake: IV 762.5 / 762.5 1305.5 / 1305.5 D10W Inj 500 ML @ 50 mls/hr IV. 500 / 500 743 / 743 SIG .Q10H [facility]ILFREDO Rx#:[id number] Vancomycin Inj 1,250 MG In NS 262.5 / 262.5 562.5 / 562.5 Inj 250 ML @ 250 mls/hr IV.SIG Q8H [facility]EDO Rx#:[id number] Oral 360 / 360 480 / 480 Output: Urine 825 / 825 Stool 1 / Other: Date of Last Bowel Movement 05/21/18 05/21/18 Result Diagrams: 05/21/18 04:55 05/21/18 04:55 Laboratory Results: Laboratory Results - last 24 hr 05/21/18 05/21/18 05/21/18 12:55 18:18 20:23 POC Glucose 123 H 110 96 Vancomycin Trough 05/22/18 05/22/18 02:20 08:25 POC Glucose 98 Vancomycin Trough 28.3 H Culture Results: Microbiology 05/18/18 21:45 Gram Stain - Final Sputum - Expectorated Sputum Sputum Culture - Final S. aureus MRSA Imaging Studies: Impressions Venous Access Device Injection 05/21/18 00:00 CONCLUSION: 1. Focal fibrin sheath and associated thrombus at the port catheter tip. Catheter is otherwise patent with flow extending into right atrium. Plan: If port aspiration remains essential to continued clinical care, treatment options include stripping of the existing catheter or more ideally placement of a new Potgsa-j-Irok. Medications: Active Medications Generic Name Dose Route Start Last Admin Trade Name Freq PRN Reason Stop Dose Admin Acetaminophen 650 mg 05/11/18 15:43 05/12/18 21:49 Tylenol PO 650 mg Q4H PRN Administration Temp > 100.4 Albuterol 2.5 mg 05/15/18 11:57 05/20/18 01:31 Albuterol Neb (Prn) NEB 2.5 mg Q2HR NEB PRN Administration DYSPNEA Cholestyramine Resin 4 gm 05/13/18 21:00 05/22/18 10:12 Questran 4 Gm Pkt PO 4 gm BID WILFREDO Administration Dextrose 50 ml 05/16/18 09:42 05/16/18 17:13 D50w Vial IV.PUSH 50 ml UNSCH PRN Administration PER HYPOGLYCEMIA PROTOCOL Enoxaparin Sodium 40 mg 05/12/18 15:00 05/21/18 14:58 Lovenox Inj SQ 40 mg Q24H [facility]ILFREDO Administration Fluticasone Propionate 1 spray 05/16/18 09:00 05/22/18 10:21 Flonase Nasal [place] EACH NARE Not Given DAILY [facility]O Potassium Chloride 40 meq in 100 mls @ 25 mls/hr 05/13/18 09:33 05/15/18 03: 13 Kcl 40 Meq Premix Inj IV.SIG Infused Q2H PRN Infusion For Potassium 2.8 - 3.2 mEq/L Potassium Phosphate 30 mmol/ 260 mls @ 42 mls/hr 05/13/18 09:33 05/16/18 01: 08 Sodium Chloride IV.SIG Infused UNSCH PRN Infusion SEE LABEL COMMENTS Sodium Phosphate 30 mmol/ 260 mls @ 42 mls/hr 05/13/18 09:33 05/17/18 00:47 Sodium Chloride IV.SIG 42 mls/hr UNSCH PRN Administration For Phosphorus < 2.5 mg/dL Dextrose 500 mls @ 50 mls/hr 05/16/18 19:00 05/22/18 07:02 D10w Inj IV.SIG Not Given .Q10H [facility]O Vancomycin HCl 1,250 mg/ 262.5 mls @ 250 mls/hr 05/20/18 18:00 05/22/18 06:55 Sodium Chloride IV.SIG Infused Q8H [facility]FR[facility]O Infusion Insulin Aspart 0 unit 05/16/18 12:00 05/22/18 10:10 Novolog Insulin Correctional Sugar Inj SQ Not Given ACHS [facility] Protocol Lorazepam 1 mg 05/11/18 21:00 05/12/18 13:51 Ativan PO Not Given BID [facility] Metoprolol Tartrate 25 mg 05/12/18 09:00 05/12/18 09:23 Lopressor PO Not Given DAILY [facility] Ondansetron HCl 8 mg 05/11/18 14:08 05/12/18 09:24 Zofran Inj IV.PUSH 8 mg Q8H PRN Administration VOMITING Pantoprazole Sodium 40 mg 05/16/18 09:00 05/22/18 10:12 Protonix PO 40 mg DAILY [facility]O Administration Potassium Phosphate 2,000 mg 05/13/18 09:33 05/20/18 08:44 K-Phos Original PO 2,000 mg Q4H PRN Administration Phosphorus Less Than 2.5 mg/dL Potassium Phosphate 2,000 mg 05/13/18 09:33 05/20/18 01:10 K-Phos Original PO 2,000 mg UNSCH PRN Administration SEE LABEL COMMENTS Pramipexole Dihydrochloride 1 mg 05/11/18 21:00 05/21/18 23:04 Mirapex PO 1 mg HS [facility]FREDO Administration Sodium Chloride 2 ml 05/11/18 09:37 05/11/18 14:27 Ns Flush IV.FLUSH 2 ml PRN PRN Administration FLUSH AFTER USING IV ACCESS Vancomycin HCl 500 mg 05/12/18 18:00 05/22/18 10:13 Vancomycin Po PO 500 mg QID [facility]FR[facility]O Administration Objective Remarks: GENERAL: Obese older female resting in bed in no obvious distress SKIN: Warm and dry. [id number] to right upper chest. No oozing. HEAD: Normocephalic. EYES: No scleral icterus. No injection or drainage. NECK: Supple, trachea midline. No JVD or lymphadenopathy. CARDIOVASCULAR: Regular rate and rhythm without murmurs. RESPIRATORY: Clear anteriorly. Breathing unlabored at rest. GASTROINTESTINAL: Abdomen soft and nontender. EXTREMITIES: SCDs to bilateral lower extremities. MUSCULOSKELETAL: Generalized weakness NEUROLOGICAL: Moving all extremities. No obvious focal deficit. Assessment/Plan - Plan Ms. Sellers is a 68-year-old female with a diagnosis of metastatic breast carcinoma, she has extensive skeletal metastases and had been on palliative systemic therapy with single agent Taxol. She had been treated in the recent past with levofloxacin for management of a urinary tract infection. She subsequently developed diarrhea and subsequent sepsis. She presented to this hospital with confusion, lethargy and difficulty breathing. 1. Patient continues to improve. We will hold off on any further chemotherapy until she has recovered from acute illness. I discussed with her that she can follow-up with Dr. Zuñiga on an outpatient basis approximately 1 week after discharge. 2. Port study revealed thrombus at port catheter tip. Defer on exchanging [id number] for now. 3. Continue antibiotics per infectious disease. She is currently on vancomycin p.o. and IV. The patient has pneumonia with MRSA in the sputum.
--- NOTE | 2018-05-22 14:08 | P.PNFP ---
Subjective Interval history: Patient seen and examined this morning. States that she is feeling well. Her stomach feels a little "queasy." Otherwise, no fevers or chills, no chest pain, no shortness of breath, no nausea or vomiting. Has had significantly decreased bowel movements and her stools are now formed. <AmritaCarley G - 05/22/18 14:07> Results - Labs Result diagrams: 05/23/18 06:21 05/23/18 06:21 <Renata Sanchez - 05/23/18 16:12> Abnormal lab results 05/22/18 05/22/18 05/23/18 Range/Units 15:53 19:50 06:21 RBC 3.26 L (4.00-5.30) mil/mm3 Hgb 10.2 L (11.6-15.3) gm/dL Hct 30.0 L (35.0-46.0) % RDW 22.1 H (11.6-17.2) % Plt Count 142 L (150-450) th/mm3 Neut % (Auto) (16.0-70.0) % Elliott % (Auto) (0.0-8.0) % Lymph # (Auto) (1.0-4.8) th/mm3 Band Neuts % (Manual) 16 H (0-6) % Lymphocytes % (Manual) 2 L (9-44) % Metamyelocytes % (Man) 4 H (0-1) % Myelocytes % (Man) 6 H (0-0) % Toxic Granulation 1+ H (None) Platelet Estimate Low L (Normal) Spherocytes Occ H (None) Ovalocytes 1+ H (None) Potassium 3.0 L (3.5-5.1) meq/L Chloride 110 H (98-107) meq/L Carbon Dioxide 18.2 L (21.0-32.0) meq/L BUN 5 L (7-18) mg/dL Estimated GFR 88 L (>89) mL/min POC Glucose 125 H (68-110) mg/dl Calcium 7.1 L* (8.5-10.1) mg/dL Prot Corrected Calcium 8.2 L (8.5-10.1) mg/dL Alkaline Phosphatase 235 H (45-117) U/L Total Protein 5.1 L (6.4-8.2) g/dL Albumin 1.6 L (3.4-5.0) g/dL 05/23/18 05/23/18 Range/Units 06:21 12:24 RBC 3.03 L (4.00-5.30) mil/mm3 Hgb 9.4 L (11.6-15.3) gm/dL Hct 28.2 L (35.0-46.0) % RDW 22.8 H (11.6-17.2) % Plt Count 127 L (150-450) th/mm3 Neut % (Auto) 71.5 H (16.0-70.0) % Elliott % (Auto) 13.6 H (0.0-8.0) % Lymph # (Auto) 0.9 L (1.0-4.8) th/mm3 Band Neuts % (Manual) (0-6) % Lymphocytes % (Manual) (9-44) % Metamyelocytes % (Man) 3 H (0-1) % Myelocytes % (Man) 7 H (0-0) % Toxic Granulation 1+ H (None) Platelet Estimate Low L (Normal) Spherocytes (None) Ovalocytes 1+ H (None) Potassium (3.5-5.1) meq/L Chloride (98-107) meq/L Carbon Dioxide (21.0-32.0) meq/L BUN (7-18) mg/dL Estimated GFR (>89) mL/min POC Glucose 118 H (68-110) mg/dl Calcium (8.5-10.1) mg/dL Prot Corrected Calcium (8.5-10.1) mg/dL Alkaline Phosphatase (45-117) U/L Total Protein (6.4-8.2) g/dL Albumin (3.4-5.0) g/dL Short CBC 05/22/18 05/23/18 Range/Units 15:53 06:21 WBC 8.2 6.6 (4.0-11.0) th/mm3 Hgb 10.2 L 9.4 L (11.6-15.3) gm/dL Hct 30.0 L 28.2 L (35.0-46.0) % Plt Count 142 L 127 L (150-450) th/mm3 BMP 05/23/18 06:21 Sodium 139 Potassium 3.0 L Chloride 110 H Carbon Dioxide 18.2 L BUN 5 L Creatinine 0.67 Calcium 7.1 L* Liver Function 05/23/18 Range/Units 06:21 Total Bilirubin 0.5 (0.2-1.0) mg/dL AST 19 (15-37) U/L ALT 19 (10-53) U/L Alkaline Phosphatase 235 H (45-117) U/L Albumin 1.6 L (3.4-5.0) g/dL <Renata Sanchez - 05/23/18 16:12> Abnormal lab results 05/22/18 Range/Units 02:20 Vancomycin Trough 28.3 H (5.0-10.0) mcg/mL <Carley Crowe - 05/22/18 14:07> Physical Exam Vital signs: Vital Signs 05/22/18 17:30 05/22/18 19:45 05/22/18 20:00 Temperature 97.9 F Pulse Rate 95 H 90 Respiratory Rate 20 Blood Pressure 180/70 H Pulse Oximetry 99 99 05/22/18 23:50 05/23/18 00:00 05/23/18 03:45 Temperature 97.8 F Pulse Rate 87 80 92 H Respiratory Rate 19 Blood Pressure 111/60 Pulse Oximetry 99 05/23/18 04:00 05/23/18 08:00 05/23/18 12:00 Temperature 97.4 F L 97.5 F L 97.9 F Pulse Rate 84 84 98 H Respiratory Rate 20 16 18 Blood Pressure 123/76 116/63 129/84 Pulse Oximetry 99 99 100 Intake & Output 05/22/18 05/23/18 05/23/18 18:59 06:59 18:59 Intake Total 567 / 567 1034 / 1034 Output Total 1200 / 1200 Balance -633 / -633 1034 / 1034 Weight 112 kg Intake: IV 554 / 554 D10W Inj 500 ML @ 50 mls/hr IV. 554 / 554 SIG .Q10H [facility]ILFREDO Rx#:[id number] Oral 360 / 360 480 / 480 Output: Urine 1200 / 1200 Other: # Voids 3 Date of Last Bowel Movement 05/22/18 # Bowel Movements 2 <Renata Sanchez - 05/23/18 16:12> Vital Signs 05/21/18 16:00 05/21/18 20:00 05/21/18 20:20 Temperature 97 F L 97.3 F L Pulse Rate 114 H 87 84 Respiratory Rate 20 16 Blood Pressure 145/64 H 134/60 Pulse Oximetry 99 99 05/21/18 20:34 05/22/18 00:00 05/22/18 04:00 Temperature 97.5 F L 97.2 F L Pulse Rate 91 H 87 Respiratory Rate 16 18 Blood Pressure 128/60 126/64 Pulse Oximetry 97 98 100 05/22/18 08:00 05/22/18 09:57 05/22/18 12:00 Temperature 97.6 F 97.2 F L Pulse Rate 83 95 H Respiratory Rate 17 17 Blood Pressure 124/75 127/76 Pulse Oximetry 100 98 99 Intake & Output 05/21/18 05/22/18 05/22/18 18:59 06:59 18:59 Intake Total 1122.5 / 1122.5 1785.5 / 1785.5 Output Total 4 / 4 825 / 825 Balance 1118.5 / 1118.5 960.5 / 960.5 Weight 112.2 kg Intake: IV 762.5 / 762.5 1305.5 / 1305.5 D10W Inj 500 ML @ 50 mls/hr IV. 500 / 500 743 / 743 SIG .Q10H [facility]O Rx#:[id number] Vancomycin Inj 1,250 MG In NS 262.5 / 262.5 562.5 / 562.5 Inj 250 ML @ 250 mls/hr IV.SIG Q8H [facility]EDO Rx#:[id number] Oral 360 / 360 480 / 480 Output: Urine / 825 / 825 Stool / Other: Date of Last Bowel Movement 05/21/18 05/21/18 <AmritaCarley Hanna - 05/22/18 14:07> Narrative: GENERAL: elderly obese white female sitting up in bed, in no acute distress SKIN: Warm and dry. CARDIOVASCULAR: Regular rate and rhythm. RESPIRATORY: No accessory muscle use. Clear to auscultation. GASTROINTESTINAL: Abdomen soft, non-tender, nondistended. MUSCULOSKELETAL: Extremities without clubbing, cyanosis, or edema. No obvious deformities. NEUROLOGICAL: Awake and alert. No obvious cranial nerve deficits. Motor grossly within normal limits. Normal speech. PSYCHIATRIC: Appropriate mood and affect; insight and judgment normal. <Carley Crowe - 05/22/18 14:07> - Urinary Catheter Management Female External Cath placed during this visit: no <Renata Sanchez - 05/23/18 16:12> no <Carley Crowe - 05/22/18 14:07> Indwelling Urethral Catheter Cath placed during this visit: no <Renata Sanchez - 05/23/18 16:12> yes, but has since been removed by the nurse <Carley Crowe - 05/22/18 14:07> Reason for continuing: Continue criteria not met <Carley Crowe - 05/22/18 14: 07> Insertion date: 05/12/18 <Carley Crowe - 05/22/18 14:07> Insertion time: 15:00 <Carley Crowe - 05/22/18 14:07> Removal date: 05/14/18 <Carley Crowe - 05/22/18 14:07> Removal time: 17:28 <Carley Crowe - 05/22/18 14:07> Assessment and Plan - Assessment (1) C. difficile colitis Code(s): A04.72 - Enterocolitis due to Clostridium difficile, not specified as recurrent Status: Acute (2) Pneumonia Code(s): J18.9 - Pneumonia, unspecified organism Status: Acute (3) Cytopenia Code(s): D75.9 - Disease of blood and blood-forming organs, unspecified Status : Resolved (4) Murmur Code(s): R01.1 - Cardiac murmur, unspecified Status: Acute (5) Metastatic breast cancer Code(s): C50.919 - Malignant neoplasm of unspecified site of unspecified female breast Status: Chronic (6) Nutrition, metabolism, and development symptoms Code(s): R63.8 - Other symptoms and signs concerning food and fluid intake Status: Acute (7) DVT prophylaxis Status: Acute <Renata Sanchez - 05/23/18 16:12> (1) C. difficile colitis Code(s): A04.72 - Enterocolitis due to Clostridium difficile, not specified as recurrent Status: Acute Plan: C. difficile positive, epit 027 positive. Rectal tube d/c'd on 05/20. BMs have significantly decreased. Dificid 200mg po BID (05/12-05/21) Vancomycin 500mg p.o QID (05/12- ) Protonix 40 mg IV daily. Zofran 8 mg IV q8h for Nausea s/p Flagyl 500 mg p.o. (05/11-05/12) Follow-up recommendations of GI; -Mild colitis of transverse colon on CT -Patient may require stool transfer versus immunotherapy, poor prognosis -GI has signed off: Can continue to follow ID recommendations for treatment and have patient follow-up with GI after discharge as an outpatient. Continue to monitor CMP for any electrolyte abnormalities due to vomiting and diarrhea. (2) Pneumonia Code(s): J18.9 - Pneumonia, unspecified organism Status: Acute Plan: Nosocomial pneumonia, jail related. Patient states that her cough has gotten better today. Vancomycin IV (05/20- ) Zosyn IV (05/12 -05/19) Sputum cx: MRSA CXR 05/19: stable from previous Chest x-ray 05/16: Bilateral parenchymal infiltrates Chest x-ray 05/12: No change Chest x-ray 05/11: Right upper lobe consolidation most characteristic of pneumonia CXR 05/21: Slight interval improvement in airspace opacities in the right upper lobe and left lung base. ID consulted, appreciate recommendations -Start Vancomycin IV Continue Flonase nasal spray Continue duo nebs scheduled every 4 hours Incentive spirometer (3) Cytopenia Code(s): D75.9 - Disease of blood and blood-forming organs, unspecified Status : Resolved Plan: Leukopenia resolved, now stable Myelosuppression attributed to recent chemotherapy with Taxol, continue to follow-up CBC -Oncology following; may start on Neupogen if neutropenic on consistent labs, will get port study when more stable (4) Murmur Code(s): R01.1 - Cardiac murmur, unspecified Status: Acute Plan: Grade 1 out of 5 systolic murmur appreciated on physical exam. Patient states that she was diagnosed with a murmur in the past. Echo in 04/2017 showed no concerning findings (5) Metastatic breast cancer Code(s): C50.919 - Malignant neoplasm of unspecified site of unspecified female breast Status: Chronic Plan: Currently followed by Dr. Zuñiga, oncology. Spoke with Dr. Ayers, follow-up with Dr. Zuñiga CT of abdomen with contrast: no additional tumors revealed CT head w/ and w/out IV contrast: No evidence of brain metastases. Stable chronic white matter ischemic changes Continue to treat for infection Oncology consulted, Appreciate recommendations. Consult to interventional radiology to have the infusaport evaluated (6) Nutrition, metabolism, and development symptoms Code(s): R63.8 - Other symptoms and signs concerning food and fluid intake Status: Acute Plan: Fluids: tolerating PO Electrolytes: Monitor and Replete as needed Diet: soft diet (7) DVT prophylaxis Status: Acute Plan: Lovenox 40 subcu daily <Carley Crowe - 05/22/18 13:58> - Assessment and Plan 68-year-old female currently undergoing chemotherapy for metastatic breast cancer admitted for severe sepsis with pneumonia and C. difficile colitis <Carley Crowe - 05/22/18 14:07> Discussed Condition With: Dr. Sanchez, Dr. York <Carley Crowe - 05/22/18 14:07> Discharge Planning: likely to rehab, working with Case Management for options <Carley Crowe - 05/22/18 14:07> - Attending Attestation The exam, history, and the medical decision-making described in the above note were completed with the assistance of the resident physician. I reviewed and agree with the findings presented. I attest that I had a [id number] encounter with the patient on the same day, and personally performed and documented my assessment and findings in the medical record. she will have her abx clarified as to length of time needed and what abx to continue. thankfully her immune system is good now <Renata Sanchez - 05/23/18 16:12>
[2018-05-22 15:04] LABS: Alanine Aminotransferase 23 U/L (10-53); Albumin 1.7 g/dL (3.4-5.0); Alkaline Phosphatase 223 U/L (45-117); Anion Gap 9 meq/L (5-15); Aspartate Aminotransferase 20 U/L (15-37); Blood Urea Nitrogen 4 mg/dL (7-18); Calcium 7.3 mg/dL (8.5-10.1); Carbon Dioxide 21.2 meq/L (21.0-32.0); Chloride 112 meq/L (98-107); Glomerular Filtration Rate Greater Than 89 mL/min (>89); Glucose,Random 78 mg/dL (74-106); Phosphorus 1.7 mg/dL (2.5-4.9); Potassium 3.4 meq/L (3.5-5.1); Sodium 142 meq/L (136-145); Total Protein 5.2 g/dL (6.4-8.2)
[2018-05-22 16:08] LABS: Hemoglobin 10.2 gm/dL (11.6-15.3); Mean Corpuscular HGB Conc 33.9 % (32.0-36.0); Mean Corpuscular Hemoglobin 31.2 pg (27.0-34.0); Mean Platelet Volume 9.3 fL (7.0-11.0); Platelet Count 142 th/mm3 (150-450); Red Blood Count 3.26 mil/mm3 (4.00-5.30); Red Cell Distribution Width 22.1 % (11.6-17.2); White Blood Count 8.2 th/mm3 (4.0-11.0)
[2018-05-22 17:18] LABS: Lymphocytes 2 % (9-44); Metamyelocytes 4 % (0-1); Monocytes 7 % (0-8); Myelocytes 6 % (0-0)
[2018-05-22 17:19] LABS: Platelet Morphology Normal (Normal)
[2018-05-22 17:20] LABS: Ovalocytes 1+; Spherocytes Occ; Toxic Granulation 1+
[2018-05-22] MEDS: Enoxaparin Inj 40 MG/0.4 ML Syringe SQ SCH (18:19)
[2018-05-23] MEDS: Dextrose 10% in Water Inj 500 ML IV.SIG SCH ×2 (01:32→12:50)
[2018-05-23 07:22] LABS: Baso % (Auto) 0.3 % (0.0-2.0); Eos % (Auto) 0.3 % (0.0-4.0); Hematocrit 28.2 % (35.0-46.0); Hemoglobin 9.4 gm/dL (11.6-15.3); Lymph # (Auto) 0.9 th/mm3 (1.0-4.8); Lymph % (Auto) 14.3 % (9.0-44.0); Mean Corpuscular HGB Conc 33.2 % (32.0-36.0); Mean Corpuscular Hemoglobin 30.9 pg (27.0-34.0); Mean Corpuscular Volume 93.1 fL (80.0-100.0); Mono # (Auto) 0.9 th/mm3 (0.0-0.9); Mono % (Auto) 13.6 % (0.0-8.0); Neut # (Auto) 4.7 th/mm3 (1.8-7.7); Neut % (Auto) 71.5 % (16.0-70.0); Platelet Count 127 th/mm3 (150-450); Red Blood Count 3.03 mil/mm3 (4.00-5.30); Red Cell Distribution Width 22.8 % (11.6-17.2); White Blood Count 6.6 th/mm3 (4.0-11.0)
[2018-05-23 07:57] LABS: Albumin 1.6 g/dL (3.4-5.0); Calcium 7.1 mg/dL (8.5-10.1); Carbon Dioxide 18.2 meq/L (21.0-32.0); Total Protein 5.1 g/dL (6.4-8.2); Vancomycin,Random 20.4 Comment
[2018-05-23 08:29] LABS: Lymphocytes 17 % (9-44); Metamyelocytes 3 % (0-1); Monocytes 7 % (0-8); Myelocytes 7 % (0-0); Ovalocytes 1+; Toxic Granulation 1+
[2018-05-23 08:30] LABS: Platelet Morphology Normal (Normal)
[2018-05-23] MEDS: Insulin NovoLOG Aspart Correctional Sugar Inj SQ SCH ×4 (09:16→22:17)
--- NOTE | 2018-05-23 11:32 | P.PNFP ---
Subjective Interval history: Patient she states that she is doing well. No fevers or chills, no cough, no diarrhea. Has been working with PT so she can reach her goal of being able to go to the bedside commode and not use the bedpan. <AmritaCarley Hanna - 05/23/18 18:58> Results - Labs Result diagrams: 05/24/18 08:10 05/24/18 08:10 <Renata Sanchez - 05/24/18 12:53> Abnormal lab results 05/23/18 05/24/18 05/24/18 Range/Units 20:43 08:10 08:10 RBC 3.06 L (4.00-5.30) mil/mm3 Hgb 9.4 L (11.6-15.3) gm/dL Hct 28.5 L (35.0-46.0) % RDW 21.9 H (11.6-17.2) % Plt Count 138 L (150-450) th/mm3 Potassium 2.8 L* (3.5-5.1) meq/L Chloride 111 H (98-107) meq/L Carbon Dioxide 20.1 L (21.0-32.0) meq/L BUN 5 L (7-18) mg/dL Estimated GFR 79 L (>89) mL/min POC Glucose 123 H (68-110) mg/dl Calcium 7.9 L D (8.5-10.1) mg/dL Alkaline Phosphatase 233 H (45-117) U/L Total Protein 5.2 L (6.4-8.2) g/dL Albumin 1.6 L (3.4-5.0) g/dL Short CBC 05/24/18 Range/Units 08:10 WBC 6.7 (4.0-11.0) th/mm3 Hgb 9.4 L (11.6-15.3) gm/dL Hct 28.5 L (35.0-46.0) % Plt Count 138 L (150-450) th/mm3 BMP 05/24/18 08:10 Sodium 141 Potassium 2.8 L* Chloride 111 H Carbon Dioxide 20.1 L BUN 5 L Creatinine 0.74 Calcium 7.9 L D Liver Function 05/24/18 Range/Units 08:10 Total Bilirubin 0.5 (0.2-1.0) mg/dL AST 19 (15-37) U/L ALT 20 (10-53) U/L Alkaline Phosphatase 233 H (45-117) U/L Albumin 1.6 L (3.4-5.0) g/dL <Renata Sanchez - 05/24/18 12:53> Abnormal lab results 05/22/18 05/22/18 05/22/18 Range/Units 13:26 15:53 19:50 RBC 3.26 L (4.00-5.30) mil/mm3 Hgb 10.2 L (11.6-15.3) gm/dL Hct 30.0 L (35.0-46.0) % RDW 22.1 H (11.6-17.2) % Plt Count 142 L (150-450) th/mm3 Neut % (Auto) (16.0-70.0) % Elk % (Auto) (0.0-8.0) % Lymph # (Auto) (1.0-4.8) th/mm3 Band Neuts % (Manual) 16 H (0-6) % Lymphocytes % (Manual) 2 L (9-44) % Metamyelocytes % (Man) 4 H (0-1) % Myelocytes % (Man) 6 H (0-0) % Toxic Granulation 1+ H (None) Platelet Estimate Low L (Normal) Spherocytes Occ H (None) Ovalocytes 1+ H (None) Potassium 3.4 L (3.5-5.1) meq/L Chloride 112 H (98-107) meq/L Carbon Dioxide (21.0-32.0) meq/L BUN 4 L (7-18) mg/dL Estimated GFR (>89) mL/min POC Glucose 125 H (68-110) mg/dl Calcium 7.3 L* (8.5-10.1) mg/dL Prot Corrected Calcium 8.3 L (8.5-10.1) mg/dL Phosphorus 1.7 L (2.5-4.9) mg/dL Alkaline Phosphatase 223 H (45-117) U/L Total Protein 5.2 L (6.4-8.2) g/dL Albumin 1.7 L (3.4-5.0) g/dL 05/23/18 05/23/18 Range/Units 06:21 06:21 RBC 3.03 L (4.00-5.30) mil/mm3 Hgb 9.4 L (11.6-15.3) gm/dL Hct 28.2 L (35.0-46.0) % RDW 22.8 H (11.6-17.2) % Plt Count 127 L (150-450) th/mm3 Neut % (Auto) 71.5 H (16.0-70.0) % Elk % (Auto) 13.6 H (0.0-8.0) % Lymph # (Auto) 0.9 L (1.0-4.8) th/mm3 Band Neuts % (Manual) (0-6) % Lymphocytes % (Manual) (9-44) % Metamyelocytes % (Man) 3 H (0-1) % Myelocytes % (Man) 7 H (0-0) % Toxic Granulation 1+ H (None) Platelet Estimate Low L (Normal) Spherocytes (None) Ovalocytes 1+ H (None) Potassium 3.0 L (3.5-5.1) meq/L Chloride 110 H (98-107) meq/L Carbon Dioxide 18.2 L (21.0-32.0) meq/L BUN 5 L (7-18) mg/dL Estimated GFR 88 L (>89) mL/min POC Glucose (68-110) mg/dl Calcium 7.1 L* (8.5-10.1) mg/dL Prot Corrected Calcium 8.2 L (8.5-10.1) mg/dL Phosphorus (2.5-4.9) mg/dL Alkaline Phosphatase 235 H (45-117) U/L Total Protein 5.1 L (6.4-8.2) g/dL Albumin 1.6 L (3.4-5.0) g/dL Short CBC 05/22/18 05/23/18 Range/Units 15:53 06:21 WBC 8.2 6.6 (4.0-11.0) th/mm3 Hgb 10.2 L 9.4 L (11.6-15.3) gm/dL Hct 30.0 L 28.2 L (35.0-46.0) % Plt Count 142 L 127 L (150-450) th/mm3 BMP 05/22/18 05/23/18 13:26 06:21 Sodium 142 139 Potassium 3.4 L 3.0 L Chloride 112 H 110 H Carbon Dioxide 21.2 18.2 L BUN 4 L 5 L Creatinine 0.66 0.67 Calcium 7.3 L* 7.1 L* Liver Function 05/22/18 05/23/18 Range/Units 13:26 06:21 Total Bilirubin 0.4 0.5 (0.2-1.0) mg/dL AST 20 19 (15-37) U/L ALT 23 19 (10-53) U/L Alkaline Phosphatase 223 H 235 H (45-117) U/L Albumin 1.7 L 1.6 L (3.4-5.0) g/dL <Carley Crowe G - 05/23/18 11:32> Physical Exam Vital signs: Vital Signs 05/23/18 16:00 05/23/18 20:00 05/24/18 00:00 Temperature 97.1 F L 98.0 F 97.7 F Pulse Rate 87 82 94 H Respiratory Rate 16 18 18 Blood Pressure 139/62 148/65 H 147/64 H Pulse Oximetry 100 99 100 05/24/18 04:00 05/24/18 08:00 05/24/18 10:06 Temperature 97.2 F L 97.2 F L Pulse Rate 89 87 Respiratory Rate 18 16 Blood Pressure 112/60 142/65 H Pulse Oximetry 100 100 99 Intake & Output 05/23/18 05/24/18 05/24/18 18:59 06:59 18:59 Intake Total 683 / 683 958 / 958 500 / 500 Output Total 250 / 250 Balance 433 / 433 958 / 958 500 / 500 Weight 112.2 kg 112.2 kg Intake: IV 203 / 203 718 / 718 500 / 500 D10W Inj 500 ML @ 50 mls/hr IV. 203 / 203 203 / 203 500 / 500 SIG .Q10H [facility] Rx#:[id number] Vancomycin Inj 1,500 MG In NS 515 / 515 Inj 500 ML @ 250 mls/hr IV.SIG ONCE ONE Rx#:[id number] Oral 480 / 480 240 / 240 Output: Urine 250 / 250 Other: # Voids 5 # Incontinent Voids 2 Date of Last Bowel Movement 05/23/18 05/23/18 # Bowel Movements 1 1 <Renata Sanchez M - 05/24/18 12:53> Vital Signs 05/22/18 12:00 05/22/18 16:00 05/22/18 17:30 Temperature 97.2 F L 97.7 F Pulse Rate 87 83 Respiratory Rate 17 18 Blood Pressure 127/76 155/82 H Pulse Oximetry 99 99 99 05/22/18 19:45 05/22/18 20:00 05/22/18 23:50 Temperature 97.9 F Pulse Rate 95 H 90 87 Respiratory Rate 20 Blood Pressure 180/70 H Pulse Oximetry 99 05/23/18 00:00 05/23/18 03:45 05/23/18 04:00 Temperature 97.8 F 97.4 F L Pulse Rate 80 92 H 84 Respiratory Rate 19 20 Blood Pressure 111/60 123/76 Pulse Oximetry 99 99 05/23/18 08:00 Temperature 97.5 F L Pulse Rate 81 Respiratory Rate 16 Blood Pressure 116/63 Pulse Oximetry 99 Intake & Output 05/22/18 05/23/18 05/23/18 18:59 06:59 18:59 Intake Total 567 / 567 1034 / 1034 Output Total 1200 / 1200 Balance -633 / -633 1034 / 1034 Weight 112 kg Intake: IV 207 / 207 554 / 554 D10W Inj 500 ML @ 50 mls/hr IV. 207 / 207 554 / 554 SIG .Q10H [facility] Rx#:[id number] Oral 360 / 360 480 / 480 Output: Urine 1200 / 1200 Other: # Voids 3 Date of Last Bowel Movement 05/22/18 # Bowel Movements 2 <Carley Crowe - 05/23/18 11:32> Narrative: GENERAL: elderly obese white female sitting up in bed, in no acute distress SKIN: Warm and dry. CARDIOVASCULAR: Regular rate and rhythm. RESPIRATORY: No accessory muscle use. Clear to auscultation. GASTROINTESTINAL: Abdomen soft, non-tender, nondistended. MUSCULOSKELETAL: Extremities without clubbing, cyanosis, or edema. No obvious deformities. NEUROLOGICAL: Awake and alert. No obvious cranial nerve deficits. Motor grossly within normal limits. Normal speech. PSYCHIATRIC: Appropriate mood and affect; insight and judgment normal. <Carley Crowe - 05/23/18 18:58> - Urinary Catheter Management Female External Cath placed during this visit: no <Renata Sanchez - 05/24/18 12:53> no <Carley Crowe - 05/23/18 18:58> Indwelling Urethral Catheter Cath placed during this visit: no <Renata Sanchez - 05/24/18 12:53> yes, but has since been removed by the nurse <Carley Crowe - 05/23/18 18:58> Reason for continuing: Continue criteria not met <Carley Crowe - 05/23/18 11: 32> Insertion date: 05/12/18 <Carley Crowe - 05/23/18 11:32> Insertion time: 15:00 <Carley Crowe - 05/23/18 11:32> Removal date: 05/14/18 <Carley Crowe - 05/23/18 11:32> Removal time: 17:28 <Carley Crowe - 05/23/18 11:32> Assessment and Plan - Assessment (1) Hypokalemia Code(s): E87.6 - Hypokalemia Status: Resolved (2) C. difficile colitis Code(s): A04.72 - Enterocolitis due to Clostridium difficile, not specified as recurrent Status: Acute (3) Pneumonia Code(s): J18.9 - Pneumonia, unspecified organism Status: Acute (4) Cytopenia Code(s): D75.9 - Disease of blood and blood-forming organs, unspecified Status : Resolved (5) Murmur Code(s): R01.1 - Cardiac murmur, unspecified Status: Acute (6) Metastatic breast cancer Code(s): C50.919 - Malignant neoplasm of unspecified site of unspecified female breast Status: Chronic (7) Nutrition, metabolism, and development symptoms Code(s): R63.8 - Other symptoms and signs concerning food and fluid intake Status: Acute (8) DVT prophylaxis Status: Acute <Renata Sanchez - 05/24/18 12:53> (1) C. difficile colitis Code(s): A04.72 - Enterocolitis due to Clostridium difficile, not specified as recurrent Status: Acute Plan: C. difficile positive, epit 027 positive. Rectal tube d/c'd on 05/20. BMs have significantly decreased. Vancomycin 500mg p.o QID (05/12- ) Dificid 200mg po BID (05/12-05/21) s/p Flagyl 500 mg p.o. (05/11-05/12) Protonix 40 mg IV daily. Zofran 8 mg IV q8h for Nausea Follow-up recommendations of GI; -Mild colitis of transverse colon on CT -Patient may require stool transfer versus immunotherapy, poor prognosis -GI has signed off: Can continue to follow ID recommendations for treatment and have patient follow-up with GI after discharge as an outpatient. Continue to monitor CMP for any electrolyte abnormalities due to vomiting and diarrhea. (2) Pneumonia Code(s): J18.9 - Pneumonia, unspecified organism Status: Acute Plan: Nosocomial pneumonia, long-term related. Patient states that her cough has gotten better today. Vancomycin IV (05/20- ) Zosyn IV (05/12 -05/19) Sputum cx: MRSA CXR 05/19: stable from previous Chest x-ray 05/16: Bilateral parenchymal infiltrates Chest x-ray 05/12: No change Chest x-ray 05/11: Right upper lobe consolidation most characteristic of pneumonia CXR 05/21: Slight interval improvement in airspace opacities in the right upper lobe and left lung base. ID consulted, appreciate recommendations -Start Vancomycin IV Continue Flonase nasal spray Continue duo nebs scheduled every 4 hours Incentive spirometer (3) Cytopenia Code(s): D75.9 - Disease of blood and blood-forming organs, unspecified Status : Resolved Plan: Leukopenia resolved, now stable Myelosuppression attributed to recent chemotherapy with Taxol, continue to follow-up CBC -Oncology following; may start on Neupogen if neutropenic on consistent labs, will get port study when more stable (4) Murmur Code(s): R01.1 - Cardiac murmur, unspecified Status: Acute Plan: Grade 1 out of 5 systolic murmur appreciated on physical exam. Patient states that she was diagnosed with a murmur in the past. Echo in 04/2017 showed no concerning findings (5) Metastatic breast cancer Code(s): C50.919 - Malignant neoplasm of unspecified site of unspecified female breast Status: Chronic Plan: Currently followed by Dr. Zuñiga, oncology. Spoke with Dr. Ayers, follow-up with Dr. Zuñiga CT of abdomen with contrast: no additional tumors revealed CT head w/ and w/out IV contrast: No evidence of brain metastases. Stable chronic white matter ischemic changes Continue to treat for infection Oncology consulted, Appreciate recommendations. Consult to interventional radiology to have the infusaport evaluated (6) Nutrition, metabolism, and development symptoms Code(s): R63.8 - Other symptoms and signs concerning food and fluid intake Status: Acute Plan: Fluids: tolerating PO Electrolytes: Monitor and Replete as needed Diet: regular, soft diet (7) DVT prophylaxis Status: Acute Plan: Lovenox 40 subcu daily <Carley Crowe 05/23/18 18:53> - Assessment and Plan 68-year-old female currently undergoing chemotherapy for metastatic breast cancer admitted for severe sepsis with pneumonia and C. difficile colitis <Carley Crowe 05/23/18 11:32> Discussed Condition With: Dr. Sanchez, Dr York <Carley Crowe 05/23/18 18:58> Discharge Planning: to [facility] once cleared by ID <Carley Crowe 05/23/18 18:58> - Attending Attestation The exam, history, and the medical decision-making described in the above note were completed with the assistance of the resident physician. I reviewed and agree with the findings presented. I attest that I had a [id number] encounter with the patient on the same day, and personally performed and documented my assessment and findings in the medical record. Had discussion with her and she is [facility]. Right now she is on p.o. vancomycin as well as IV vancomycin. Per request the antibiotics need to be clarified as far as length of treatment and whether they are going to be changed to something else prior to being discharged to [place]. <Renata Sanchez M - 05/24/18 12:53> <Carley Crowe G - Last Filed: 05/23/18 18:53> (2) Pneumonia Qualifiers: Pneumonia type: due to methicillin-resistant Staphylococcus aureus (MRSA) <Renata Sanchez M - Last Filed: 05/24/18 12:53> (3) Pneumonia Qualifiers: Pneumonia type: due to methicillin-resistant Staphylococcus aureus (MRSA) <Carley Crowe G - Last Filed: 05/23/18 18:53> (2) Pneumonia Qualifiers: Pneumonia type: due to methicillin-resistant Staphylococcus aureus (MRSA) <Renata Sanchez M - Last Filed: 05/24/18 12:53> (3) Pneumonia Qualifiers: Pneumonia type: due to methicillin-resistant Staphylococcus aureus (MRSA)
[2018-05-23] MEDS ORDERED: Vancomycin Inj 1,500 MG in Sodium Chlor 0.9% Inj 500 ML IV.SIG ONE (12:00)
[2018-05-23] MEDS: Enoxaparin Inj 40 MG/0.4 ML Syringe SQ SCH (16:24)
[2018-05-23] MEDS ORDERED: Calcium Carbonate 500 MG Tablet PO ONE (20:00)
[2018-05-24] MEDS: Dextrose 10% in Water Inj 500 ML IV.SIG SCH ×2 (00:21→08:12)
[2018-05-24 08:51] LABS: Hematocrit 28.5 % (35.0-46.0); Hemoglobin 9.4 gm/dL (11.6-15.3); Mean Corpuscular HGB Conc 32.8 % (32.0-36.0); Mean Corpuscular Hemoglobin 30.6 pg (27.0-34.0); Mean Corpuscular Volume 93.2 fL (80.0-100.0); Mean Platelet Volume 8.8 fL (7.0-11.0); Platelet Count 138 th/mm3 (150-450); Red Blood Count 3.06 mil/mm3 (4.00-5.30); Red Cell Distribution Width 21.9 % (11.6-17.2); White Blood Count 6.7 th/mm3 (4.0-11.0)
[2018-05-24 09:34] LABS: Alanine Aminotransferase 20 U/L (10-53); Albumin 1.6 g/dL (3.4-5.0); Alkaline Phosphatase 233 U/L (45-117); Anion Gap 10 meq/L (5-15); Aspartate Aminotransferase 19 U/L (15-37); Blood Urea Nitrogen 5 mg/dL (7-18); Calcium 7.9 mg/dL (8.5-10.1); Carbon Dioxide 20.1 meq/L (21.0-32.0); Chloride 111 meq/L (98-107); Glomerular Filtration Rate 79 mL/min (>89); Glucose,Random 80 mg/dL (74-106); Sodium 141 meq/L (136-145); Total Protein 5.2 g/dL (6.4-8.2)
[2018-05-24] MEDS: Insulin NovoLOG Aspart Correctional Sugar Inj SQ SCH ×2 (09:36→13:02)
[2018-05-24 09:44] LABS: Potassium 2.8 meq/L (3.5-5.1)
[2018-05-24 10:06] VITALS: O2SAT 99
--- NOTE | 2018-05-24 10:45 | P.PNFP ---
Subjective Interval history: Patient was seen and examined this morning. She has been evaluated by physical therapy team at the time. She denied any new symptoms or concerns. She is without pain. She has about 1 bowel movement a day. The patient denies fevers, chills, nausea, vomiting, headaches, chest pain, shortness of breath, abdominal pain, lower extremity edema. <Pao Gardner Eduin - 05/24/18 11:21> Results - Labs Result diagrams: 05/24/18 08:10 05/24/18 08:10 <Renata Sanchez - 05/24/18 12:55> Abnormal lab results 05/23/18 05/24/18 05/24/18 Range/Units 20:43 08:10 08:10 RBC 3.06 L (4.00-5.30) mil/mm3 Hgb 9.4 L (11.6-15.3) gm/dL Hct 28.5 L (35.0-46.0) % RDW 21.9 H (11.6-17.2) % Plt Count 138 L (150-450) th/mm3 Potassium 2.8 L* (3.5-5.1) meq/L Chloride 111 H (98-107) meq/L Carbon Dioxide 20.1 L (21.0-32.0) meq/L BUN 5 L (7-18) mg/dL Estimated GFR 79 L (>89) mL/min POC Glucose 123 H (68-110) mg/dl Calcium 7.9 L D (8.5-10.1) mg/dL Alkaline Phosphatase 233 H (45-117) U/L Total Protein 5.2 L (6.4-8.2) g/dL Albumin 1.6 L (3.4-5.0) g/dL Short CBC 05/24/18 Range/Units 08:10 WBC 6.7 (4.0-11.0) th/mm3 Hgb 9.4 L (11.6-15.3) gm/dL Hct 28.5 L (35.0-46.0) % Plt Count 138 L (150-450) th/mm3 BMP 05/24/18 08:10 Sodium 141 Potassium 2.8 L* Chloride 111 H Carbon Dioxide 20.1 L BUN 5 L Creatinine 0.74 Calcium 7.9 L D Liver Function 05/24/18 Range/Units 08:10 Total Bilirubin 0.5 (0.2-1.0) mg/dL AST 19 (15-37) U/L ALT 20 (10-53) U/L Alkaline Phosphatase 233 H (45-117) U/L Albumin 1.6 L (3.4-5.0) g/dL <Renata Sanchez - 05/24/18 12:55> Abnormal lab results 05/23/18 05/23/18 05/24/18 Range/Units 12:24 20:43 08:10 RBC 3.06 L (4.00-5.30) mil/mm3 Hgb 9.4 L (11.6-15.3) gm/dL Hct 28.5 L (35.0-46.0) % RDW 21.9 H (11.6-17.2) % Plt Count 138 L (150-450) th/mm3 Potassium (3.5-5.1) meq/L Chloride (98-107) meq/L Carbon Dioxide (21.0-32.0) meq/L BUN (7-18) mg/dL Estimated GFR (>89) mL/min POC Glucose 118 H 123 H (68-110) mg/dl Calcium (8.5-10.1) mg/dL Alkaline Phosphatase (45-117) U/L Total Protein (6.4-8.2) g/dL Albumin (3.4-5.0) g/dL 05/24/18 Range/Units 08:10 RBC (4.00-5.30) mil/mm3 Hgb (11.6-15.3) gm/dL Hct (35.0-46.0) % RDW (11.6-17.2) % Plt Count (150-450) th/mm3 Potassium 2.8 L* (3.5-5.1) meq/L Chloride 111 H (98-107) meq/L Carbon Dioxide 20.1 L (21.0-32.0) meq/L BUN 5 L (7-18) mg/dL Estimated GFR 79 L (>89) mL/min POC Glucose (68-110) mg/dl Calcium 7.9 L D (8.5-10.1) mg/dL Alkaline Phosphatase 233 H (45-117) U/L Total Protein 5.2 L (6.4-8.2) g/dL Albumin 1.6 L (3.4-5.0) g/dL Short CBC 05/24/18 Range/Units 08:10 WBC 6.7 (4.0-11.0) th/mm3 Hgb 9.4 L (11.6-15.3) gm/dL Hct 28.5 L (35.0-46.0) % Plt Count 138 L (150-450) th/mm3 BMP 05/24/18 08:10 Sodium 141 Potassium 2.8 L* Chloride 111 H Carbon Dioxide 20.1 L BUN 5 L Creatinine 0.74 Calcium 7.9 L D Liver Function 05/24/18 Range/Units 08:10 Total Bilirubin 0.5 (0.2-1.0) mg/dL AST 19 (15-37) U/L ALT 20 (10-53) U/L Alkaline Phosphatase 233 H (45-117) U/L Albumin 1.6 L (3.4-5.0) g/dL <Pao Gardner L - 05/24/18 10:45> Physical Exam Vital signs: Vital Signs 05/23/18 16:00 05/23/18 20:00 05/24/18 00:00 Temperature 97.1 F L 98.0 F 97.7 F Pulse Rate 87 82 94 H Respiratory Rate 16 18 18 Blood Pressure 139/62 148/65 H 147/64 H Pulse Oximetry 100 99 100 05/24/18 04:00 05/24/18 08:00 05/24/18 10:06 Temperature 97.2 F L 97.2 F L Pulse Rate 89 87 Respiratory Rate 18 16 Blood Pressure 112/60 142/65 H Pulse Oximetry 100 100 99 Intake & Output 05/23/18 05/24/18 05/24/18 18:59 06:59 18:59 Intake Total 683 / 683 958 / 958 500 / 500 Output Total 250 / 250 Balance 433 / 433 958 / 958 500 / 500 Weight 112.2 kg 112.2 kg Intake: IV 718 / 718 500 / 500 D10W Inj 500 ML @ 50 mls/hr IV. 500 / 500 SIG .Q10H [facility] Rx#:[id number] Vancomycin Inj 1,500 MG In NS 515 / 515 Inj 500 ML @ 250 mls/hr IV.SIG ONCE ONE Rx#:[id number] Oral 480 / 480 240 / 240 Output: Urine 250 / 250 Other: # Voids 5 # Incontinent Voids 2 Date of Last Bowel Movement 05/23/18 05/23/18 # Bowel Movements 1 1 <Renata Sanchez M - 05/24/18 12:55> Vital Signs 05/23/18 12:00 05/23/18 16:00 05/23/18 20:00 Temperature 97.9 F 97.1 F L 98.0 F Pulse Rate 99 H 87 82 Respiratory Rate 18 16 18 Blood Pressure 129/84 139/62 148/65 H Pulse Oximetry 100 100 99 05/24/18 00:00 05/24/18 04:00 05/24/18 08:00 Temperature 97.7 F 97.2 F L 97.2 F L Pulse Rate 94 H 89 87 Respiratory Rate 18 18 16 Blood Pressure 147/64 H 112/60 142/65 H Pulse Oximetry 100 100 100 05/24/18 10:06 Temperature Pulse Rate Respiratory Rate Blood Pressure Pulse Oximetry 99 Intake & Output 05/23/18 05/24/18 05/24/18 18:59 06:59 18:59 Intake Total 683 / 683 958 / 958 Output Total 250 / 250 Balance 433 / 433 958 / 958 Weight 112.2 kg Intake: IV 718 / 718 D10W Inj 500 ML @ 50 mls/hr IV. 203 203 SIG .Q10H [facility] Rx#:[id number] Vancomycin Inj 1,500 MG In NS 515 / 515 Inj 500 ML @ 250 mls/hr IV.SIG ONCE ONE Rx#:[id number] Oral 480 / 480 240 / 240 Output: Urine 250 / 250 Other: # Voids 5 # Incontinent Voids 2 Date of Last Bowel Movement 05/23/18 05/23/18 # Bowel Movements 1 1 <Pao Gardner - 05/24/18 11:21> Narrative: GENERAL: elderly obese white female sitting up in bed, in no acute distress. SKIN: Warm and dry. Buttock rash noted to include the gluteal cleft and anal verge, covered in calamine lotion. The mid-thoracic area has an 8-inch transverse area of of blanching erythema under seborrheic keratoses. CARDIOVASCULAR: Regular rate and rhythm. No murmurs. RESPIRATORY: No accessory muscle use. Clear to auscultation. GASTROINTESTINAL: Abdomen soft, non-tender, nondistended. MUSCULOSKELETAL: Extremities without clubbing, cyanosis, or edema. No obvious deformities. NEUROLOGICAL: Awake and alert. No obvious cranial nerve deficits. Motor grossly within normal limits. Normal speech. PSYCHIATRIC: Appropriate mood and affect; insight and judgment normal. <Pao Gardner 05/24/18 11:21> - Urinary Catheter Management Female External Cath placed during this visit: no <DanielRenata Pratik 05/24/18 12:55> no <Pao Gardner 05/24/18 11:21> Indwelling Urethral Catheter Cath placed during this visit: no <DanielJaredRenata Pratik 05/24/18 12:55> yes, but has since been removed by the nurse <Pao Gardner 05/24/18 11:21> Reason for continuing: Continue criteria not met <Pao Gardner 05/24/18 10:45> Insertion date: 05/12/18 <Pao Gardner 05/24/18 10:45> Insertion time: 15:00 <Pao Gardner 05/24/18 10:45> Removal date: 05/14/18 <Pao Gardner 05/24/18 10:45> Removal time: 17:28 <Pao Gardner 05/24/18 10:45> Assessment and Plan - Assessment (1) Hypokalemia Code(s): E87.6 - Hypokalemia Status: Resolved (2) C. difficile colitis Code(s): A04.72 - Enterocolitis due to Clostridium difficile, not specified as recurrent Status: Acute (3) Pneumonia Code(s): J18.9 - Pneumonia, unspecified organism Status: Acute (4) Cytopenia Code(s): D75.9 - Disease of blood and blood-forming organs, unspecified Status : Resolved (5) Murmur Code(s): R01.1 - Cardiac murmur, unspecified Status: Acute (6) Metastatic breast cancer Code(s): C50.919 - Malignant neoplasm of unspecified site of unspecified female breast Status: Chronic (7) Nutrition, metabolism, and development symptoms Code(s): R63.8 - Other symptoms and signs concerning food and fluid intake Status: Acute (8) DVT prophylaxis Status: Acute <Renata Sanchez - 05/24/18 12:55> (1) Hypokalemia Code(s): E87.6 - Hypokalemia Status: Resolved Plan: Patient has had hypokalemia this hospital stay, currently 2.8, will give 40 mEq of PO potassium at this time and repeat BMP this afternoon. Goal potassium would be within normal limits and patient likely is having nutritional deficiencies as source for this. Diarrhea has resolved (2) C. difficile colitis Code(s): A04.72 - Enterocolitis due to Clostridium difficile, not specified as recurrent Status: Acute Plan: Bowel movements at baseline. C. difficile positive, epit 027 positive. Rectal tube d/c'd on 05/20. BMs have significantly decreased. We spoke to Dr. Maldonado (ID) and she recommends continuing Vancomycin IV (for PNA) for at least 7 total days. She also recommends continuing Vancomycin PO for 14 total days. She will offer formal recommendations after evaluating patient today. Vancomycin 500mg p.o. QID (05/12- ). Dificid 200mg po BID (05/12-05/21). S/p Flagyl 500 mg p.o. (05/11-05/12). Protonix 40 mg IV daily. Zofran 8 mg IV q8h for Nausea. Follow-up recommendations of GI: -Mild colitis of transverse colon on CT. -Patient was initially being considered for stool transfer versus immunotherapy but has clinically improved. -GI has signed off: Can continue to follow ID recommendations for treatment and have patient follow-up with GI after discharge as an outpatient. Continue to monitor CMP for any electrolyte abnormalities due to vomiting and diarrhea. (3) Pneumonia Code(s): J18.9 - Pneumonia, unspecified organism Status: Acute Plan: Nosocomial pneumonia, fpc related. Cough improved and no SOB. Afebrile. Stable for discharge pending antibiotic recommendations given MRSA in sputum. Dr. Maldonado will offer official recommendations for IV Vanc after evaluating patient today. Vancomycin IV (05/20- ) Zosyn IV (05/12 -05/19) Sputum cx: MRSA CXR 05/19: stable from previous Chest x-ray 05/16: Bilateral parenchymal infiltrates Chest x-ray 05/12: No change Chest x-ray 05/11: Right upper lobe consolidation most characteristic of pneumonia CXR 05/21: Slight interval improvement in airspace opacities in the right upper lobe and left lung base ID consulted, appreciate recommendations -Started Vancomycin IV as above Continue Flonase nasal spray Continue duo nebs scheduled every 4 hours Incentive spirometer (4) Cytopenia Code(s): D75.9 - Disease of blood and blood-forming organs, unspecified Status : Resolved Plan: Leukopenia resolved, now stable Myelosuppression attributed to recent chemotherapy with Taxol, continue to follow-up CBC -Oncology following; may start on Neupogen if neutropenic on consistent labs, will get port study when more stable (5) Murmur Code(s): R01.1 - Cardiac murmur, unspecified Status: Acute Plan: Grade 1 out of 5 systolic murmur appreciated on physical exam. Patient states that she was diagnosed with a murmur in the past. Echo in 04/2017 showed no concerning findings (6) Metastatic breast cancer Code(s): C50.919 - Malignant neoplasm of unspecified site of unspecified female breast Status: Chronic Plan: Currently followed by Dr. Zuñiga, oncology. Spoke with Dr. Ayers, follow-up with Dr. Zuñiga CT of abdomen with contrast: no additional tumors revealed CT head w/ and w/out IV contrast: No evidence of brain metastases. Stable chronic white matter ischemic changes Continue to treat for infection Oncology consulted, Appreciate recommendations. Consult to interventional radiology to have the infusaport evaluated (7) Nutrition, metabolism, and development symptoms Code(s): R63.8 - Other symptoms and signs concerning food and fluid intake Status: Acute Plan: Fluids: tolerating PO Electrolytes: Monitor and Replete as needed Diet: regular, soft diet (8) DVT prophylaxis Status: Acute Plan: Lovenox 40 subcu daily <Pao Gardner - 05/24/18 10:53> - Assessment and Plan 68-year-old female currently undergoing chemotherapy for metastatic breast cancer admitted for severe sepsis with pneumonia and C. difficile colitis <Pao Gardner - 05/24/18 11:21> Discussed Condition With: Seen and discussed with Dr. Crowe and Dr. Sanchez <Pao Gardner - 05/24/18 11:21> Discharge Planning: Anticipate discharge to rehab pending confirmation of antibiotic regimen <Pao Gardner - 05/24/18 11:21> - Attending Attestation The exam, history, and the medical decision-making described in the above note were completed with the assistance of the resident physician. I reviewed and agree with the findings presented. I attest that I had a [id number] encounter with the patient on the same day, and personally performed and documented my assessment and findings in the medical record. On discussion with infectious disease this lady would never be switched to daptomycin because she had a MRSA pneumonia. Daptomycin is not to be used in that situation. She should be able to be transferred to [place] hopefully today. <Renata Sanchez M - 05/24/18 12:55> <Pao Gardner L - Last Filed: 05/24/18 10:53> (3) Pneumonia Qualifiers: Pneumonia type: due to methicillin-resistant Staphylococcus aureus (MRSA) <Renata Sanchez M - Last Filed: 05/24/18 12:55> (3) Pneumonia Qualifiers: Pneumonia type: due to methicillin-resistant Staphylococcus aureus (MRSA) <Pao Gardner L - Last Filed: 05/24/18 10:53> (3) Pneumonia Qualifiers: Pneumonia type: due to methicillin-resistant Staphylococcus aureus (MRSA) <Renata Sanchez M - Last Filed: 05/24/18 12:55> (3) Pneumonia Qualifiers: Pneumonia type: due to methicillin-resistant Staphylococcus aureus (MRSA)
--- NOTE | 2018-05-24 11:55 | P.PNID ---
Subjective Remarks: doing well afebrile on RA nocough sputum grew MRSA no abd pain small amount of diarrhea Antibiotics: vanco IV vanco po dificid Allergies/Adverse Reactions: Allergies hydromorphone [From Dilaudid] Adverse Reaction (Intermediate, Verified 05/11/18 10:38) Dizziness Objective Vital Signs 05/23/18 12:00 05/23/18 16:00 05/23/18 20:00 Temperature 97.9 F 97.1 F L 98.0 F Pulse Rate 99 H 87 82 Respiratory Rate 18 16 18 Blood Pressure 129/84 139/62 148/65 H Pulse Oximetry 100 100 99 05/24/18 00:00 05/24/18 04:00 05/24/18 08:00 Temperature 97.7 F 97.2 F L 97.2 F L Pulse Rate 94 H 89 87 Respiratory Rate 18 18 16 Blood Pressure 147/64 H 112/60 142/65 H Pulse Oximetry 100 100 100 05/24/18 10:06 Temperature Pulse Rate Respiratory Rate Blood Pressure Pulse Oximetry 99 Intake & Output 05/23/18 05/24/18 05/24/18 18:59 06:59 18:59 Intake Total 683 / 683 958 / 958 Output Total 250 / 250 Balance 433 / 433 958 / 958 Weight 112.2 kg Intake: IV 718 / 718 D10W Inj 500 ML @ 50 mls/hr IV. / 203 203 / 203 SIG .Q10H [facility] Rx#:[id number] Vancomycin Inj 1,500 MG In NS 515 / 515 Inj 500 ML @ 250 mls/hr IV.SIG ONCE ONE Rx#:[id number] Oral 480 / 480 240 / 240 Output: Urine 250 / 250 Other: # Voids 5 # Incontinent Voids 2 Date of Last Bowel Movement 05/23/18 05/23/18 # Bowel Movements 1 1 05/18/18 21:45 Sputum - Expectorated Sputum Gram Stain - Final 05/18/18 21:45 Sputum - Expectorated Sputum Sputum Culture - Final S. aureus MRSA Lab - Hematology Results 05/22/18 05/22/18 05/23/18 14:42 15:53 06:21 WBC 8.2 6.6 RBC 3.26 L 3.03 L Hgb 10.2 L 9.4 L Hct 30.0 L 28.2 L MCV 92.0 93.1 MCH 31.2 30.9 MCHC 33.9 33.2 RDW 22.1 H 22.8 H Plt Count 142 L 127 L MPV 9.3 9.0 Prelim Diff (Auto) Manual diff required Slide review pending Neut % (Auto) 71.5 H Lymph % (Auto) 14.3 [place] % (Auto) 13.6 H Eos % (Auto) 0.3 Baso % (Auto) 0.3 Neut # (Auto) 4.7 Lymph # (Auto) 0.9 L [place] # (Auto) 0.9 Eos # (Auto) 0.0 Baso # (Auto) 0.0 WBC Differential Manual diff final Manual diff final Seg Neuts % (Manual) 65 64 Band Neuts % (Manual) 16 H 2 Lymphocytes % (Manual) 2 L 17 Monocytes % (Manual) 7 7 Metamyelocytes % (Man) 4 H 3 H Myelocytes % (Man) 6 H 7 H Abs Neuts (Manual) 7.5 5.0 Differential Comment . . Toxic Granulation 1+ H 1+ H Platelet Estimate Low L Low L Platelet Morphology Normal Normal Spherocytes Occ H Ovalocytes 1+ H 1+ H 05/24/18 08:10 WBC 6.7 RBC 3.06 L Hgb 9.4 L Hct 28.5 L MCV 93.2 MCH 30.6 MCHC 32.8 RDW 21.9 H Plt Count 138 L MPV 8.8 Prelim Diff (Auto) Neut % (Auto) Lymph % (Auto) [place] % (Auto) Eos % (Auto) Baso % (Auto) Neut # (Auto) Lymph # (Auto) [place] # (Auto) Eos # (Auto) Baso # (Auto) WBC Differential Seg Neuts % (Manual) Band Neuts % (Manual) Lymphocytes % (Manual) Monocytes % (Manual) Metamyelocytes % (Man) Myelocytes % (Man) Abs Neuts (Manual) Differential Comment Toxic Granulation Platelet Estimate Platelet Morphology Spherocytes Ovalocytes Lab - Chemistry Results 05/22/18 05/22/18 05/22/18 13:04 13:26 18:02 Sodium 142 Potassium 3.4 L Chloride 112 H Carbon Dioxide 21.2 Anion Gap 9 BUN 4 L Creatinine 0.66 Estimated GFR Greater than 89 POC Glucose 103 105 Random Glucose 78 Calcium 7.3 L* Prot Corrected Calcium 8.3 L Phosphorus 1.7 L Total Bilirubin 0.4 AST 20 ALT 23 Alkaline Phosphatase 223 H Total Protein 5.2 L Albumin 1.7 L 05/22/18 05/23/18 05/23/18 19:50 06:21 08:33 Sodium 139 Potassium 3.0 L Chloride 110 H Carbon Dioxide 18.2 L Anion Gap 11 BUN 5 L Creatinine 0.67 Estimated GFR 88 L POC Glucose 125 H 92 Random Glucose 80 Calcium 7.1 L* Prot Corrected Calcium 8.2 L Phosphorus Total Bilirubin 0.5 AST 19 ALT 19 Alkaline Phosphatase 235 H Total Protein 5.1 L Albumin 1.6 L 05/23/18 05/23/18 05/23/18 12:24 17:29 20:43 Sodium Potassium Chloride Carbon Dioxide Anion Gap BUN Creatinine Estimated GFR POC Glucose 118 H 102 123 H Random Glucose Calcium Prot Corrected Calcium Phosphorus Total Bilirubin AST ALT Alkaline Phosphatase Total Protein Albumin 05/24/18 05/24/18 08:10 09:36 Sodium 141 Potassium 2.8 L* Chloride 111 H Carbon Dioxide 20.1 L Anion Gap 10 BUN 5 L Creatinine 0.74 Estimated GFR 79 L POC Glucose 78 Random Glucose 80 Calcium 7.9 L D Prot Corrected Calcium Phosphorus Total Bilirubin 0.5 AST 19 ALT 20 Alkaline Phosphatase 233 H Total Protein 5.2 L Albumin 1.6 L Imaging: ITS Impressions Chest CT 05/12/18 00:00 CONCLUSION: 1. Confluent opacity in the right upper lobe that is new when compared to the prior study 2016. Morphology would favor scarring. There is mild associated bronchiectasis. More acute consolidation is also in the differential diagnosis. Neoplasm would be less likely but is in the differential diagnosis. Recommend a follow-up noncontrast chest CT confirm stability or resolution in 3 months. 2. Minimal nonspecific groundglass opacity in the left upper lobe. The prominent bilateral groundglass opacity seen on prior study of 2017 is not seen on today's study. Head CT 05/12/18 00:00 CONCLUSION: 1. No acute intracranial abnormalities. Stable chronic white matter ischemic changes. . Venous Doppler Study 05/12/18 00:00 CONCLUSION: No evidence of lower extremity DVT on the right or left. Abdomen/Pelvis CT 05/12/18 15:00 CONCLUSION: 1. Questionable mild mural thickening of the colon that could indicate a mild colitis, especially transverse colon. 2. Heterogeneous renal parenchymal enhancement not as optimally evaluated as on prior study. Cannot exclude pyelonephritis. 3. Bhagat catheter in decompressed bladder. 4. Hiatal hernia. 5. Moderate coronary calcifications. Abdomen X-Ray 05/12/18 21:10 CONCLUSION: Nasogastric tube in the stomach with the tip at the gastroesophageal junction. Venous Access Device Injection 05/21/18 00:00 CONCLUSION: 1. Focal fibrin sheath and associated thrombus at the port catheter tip. Catheter is otherwise patent with flow extending into right atrium. Plan: If port aspiration remains essential to continued clinical care, treatment options include stripping of the existing catheter or more ideally placement of a new [id number]. Chest X-Ray 05/21/18 06:00 CONCLUSION: Slight interval improvement in airspace opacities in the right upper lobe and left lung base. Physical Exam: GENERAL: NAD On RA SKIN: Warm and dry. HEAD: Atraumatic. Normocephalic. EYES: Pupils equal and round. No scleral icterus. No injection or drainage. ENT: No nasal bleeding or discharge. Mucous membranes pink and moist. NECK: Trachea midline. No JVD. CARDIOVASCULAR: Regular rate and rhythm. RESPIRATORY: No accessory muscle use. Few scattered rhonchi to auscultation. Breath sounds equally diminished bilaterally. GASTROINTESTINAL: Abdomen soft, non-tender, moderately distended. Hepatic and splenic margins not palpable. MUSCULOSKELETAL: Extremities without clubbing, cyanosis, or edema. No obvious deformities. well prefused hands and feet NEUROLOGICAL: Awake and alert. No obvious cranial nerve deficits. Motor grossly within normal limits. Five out of 5 muscle strength in the arms and legs. Normal speech. PSYCHIATRIC: Appropriate mood and affect; insight and judgment normal. Assessment and Plan - Plan Metastatic breadst Ca sp chemo Mildly cytopenic, liklely suppressed from chemo - improved WBC to 3700 Hypervirulent 027 C.diff Severe sepsis: likely C/diff ? R side pyelo, though UA, clin presntation not cw pyelo PNA, w multilobar with LLL and RUL infiltrates - was 1 week on pip-tazo Sputum + for MRSA ARF - imnproved with IVF resuscitation cont po vanco to complete 14 days cont Dificid x 10 days total cont vanco IV x 7 days dtotal OK to Pedro Kinney
--- NOTE | 2018-05-24 12:03 | P.DCO ---
Post Hospital Infusion Therapy Location of Infusion Therapy: [facility] Infusion Therapy Order Patient Weight: 112.2 kg - Diagnosis (1) Pneumonia Code(s): J18.9 - Pneumonia, unspecified organism - Administer Medication Vancomycin Dose: 1 gram IV Directions: q 24 hours Start Treatment: 05/25/18 Stop Treatment: 05/27/18 - Additional Information Venous Access: Peripheral Additional Instructions: [x] Peripheral flush and dressing changes per protocol [x] Implanted port and central personal lines account executive: * Implanted port: 10 ml Normal Saline followed by 5 ml Heparin 100 units/ml Heparin flush after each use and monthly to maintain. [] May leave port accessed during therapy. [] May leave peripheral site accessed for duration of therapy. [x] If patient has SOB or respiratory distress, check oxygen saturation. If less than 90% or clinical signs of respiratory distress, administer oxygen at 2 L/min. via nasal cannula and notify physician. [x] Anaphylaxis/Reaction orders: * Stop infusion. * Keep IV line open with saline flush. * Notify physician. * Monitor vital signs every 15 minutes until symptoms resolve. * Check Oxygen saturation; Oxygen at 2 L/min. via nasal cannula if less than 90% or clinical signs of respiratory distress. * Administer diphenhydramine (Benadryl) 25 mg IV STAT, (unless patient has received as pre-med). May repeat once, if necessary. * Solu-Cortef 250 mg IVP over 30-60 seconds, use 100 mg vials for each dissolution. * Epinephrine (1mg/1 ml) 0.3 mg subcutaneously or IVP now with any signs of respiratory distress. * Check with physician for new additional pre-med orders if patient is re- challenged or re-treated. [x] May remove PICC line when treatment complete, after confirming with Physician. [x] If the patient is admitted to the hospital, the ED, or transferred via [facility] , complete transfer form including medication reconciliation order sheet. Allergies hydromorphone [From Dilaudid] Adverse Reaction (Intermediate, Verified 05/11/18 10:38) Dizziness (1) Pneumonia Qualifiers: Pneumonia type: due to methicillin-resistant Staphylococcus aureus (MRSA)
[2018-05-24 13:34] VITALS: BP 146/68; RESP 18; TEMP 97.4
[2018-05-24 14:26] LABS: Calcium 7.7 mg/dL (8.5-10.1); Carbon Dioxide 20.2 meq/L (21.0-32.0); Potassium 3.3 meq/L (3.5-5.1)
--- NOTE | 2018-05-24 15:03 | P.DS ---
<Carley Crowe - Last Filed: 05/24/18 14:58> Date of admission: 05/11/18 14:06 Primary care physician: MERLENE Flanagan Brief History from admission: 68 year old female currently on chemotherapy for metastatic breat cancer, last chemo dose was Monday presents to the ED for vomiting and diarrhea. She said it started night (last night), she believes, with an ear ache and some congestion and she felt nauseas. She told her doctor primary health organisation manager at the care home and she gave her some Mucinex but was unsure if she got any nausea medication at the time. The doctor also put her on Levaquin but she is unsure for what reason. She continued to have a cough and was coughing up dark green sputum x20. She then started having diarrhea yesterday night x6, denies any melana. She then started vomiting along with the diarrhea x6 describes the color as dark green. Patient is followed by Dr. Zuñiga for oncology for breast cancer. Pts last chemotherapy treatment was on Monday and this is her second dose new drug. She has never experienced vomiting on chemotherapy. Has never experienced vomiting up "green sputum" before. Denies any sick contacts at the care home. Denies any ear ache currently. DS: Diagnosis - Discharge Diagnosis (1) C. difficile colitis Status: Acute (2) Pneumonia Status: Acute (3) Cytopenia Status: Resolved (4) Murmur Status: Acute (5) Metastatic breast cancer Status: Chronic (6) Nutrition, metabolism, and development symptoms Status: Acute (7) DVT prophylaxis Status: Acute DS: Summary Hospital Course: 68-year-old female who was undergoing chemotherapy for metastatic breast cancer presented to the emergency room with vomiting and diarrhea for 1 day with altered mental status. She was placed on Levaquin by her rehab facility the day before for an unknown reason. Met SIRS on admission HR:143, RR:28, Bands: 18. Meets 3 out of 5 SIRS criteria. Unknown source of infection. She was leukopenic with a white blood cell count of 3.3. Had MARIELA with creatinine of 1.19. CT showed possible pyelonephritis. She was started on vancomycin and Zosyn, IV fluids. Overnight on day 1 of admission, patient had a drop in blood pressure of 93/65. [place] was called and patient was transferred to the ICU for better blood pressure monitoring. Repeat chest x-ray showed a developing pneumonia. She became C. difficile positive with epit 027(virulent strain), GI was consulted recommended switching IV Vanc to PO Vanc and PO dificid. The sous chef recommended to add an additional azithromycin for her pneumonia. Azithromycin was DC'd after pneumococcal and U urine Legionella antigens were negative. During her ICU course, she continued to be acidotic requiring fluids and a bicarbonate drip and a NG tube was placed for her worsening GI symptoms. She continued to have associated electrolyte abnormalities hypokalemia, hypophosphatemia, hypomagnesia and these electrolytes were frequently replaced during her hospital course. She became stable and was transferred to [facility]. Oncology recommended to discontinue her chemotherapy and would reevaluate when she was medically stable considering changing her Chemo-Port. Infectious disease recommended to continue with vancomycin p.o. for a total of 14 days and IV for a total of 7 days upon d/c. Pt was discharged to [facility]. - Time Spent with Patient Total time spent providing and/or coordinating discharge services: Less than 30 minutes - Quality: VTE Deep Vein Thrombosis/Pulmonary Embolism Present on Admission: No Exam Vital signs: Vital Signs 05/23/18 16:00 05/23/18 20:00 05/24/18 00:00 Temperature 97.1 F L 98.0 F 97.7 F Pulse Rate 87 82 94 H Respiratory Rate 16 18 18 Blood Pressure 139/62 148/65 H 147/64 H Pulse Oximetry 100 99 100 05/24/18 04:00 05/24/18 08:00 05/24/18 10:06 Temperature 97.2 F L 97.2 F L Pulse Rate 89 87 Respiratory Rate 18 16 Blood Pressure 112/60 142/65 H Pulse Oximetry 100 100 99 05/24/18 12:00 Temperature 97.4 F L Pulse Rate 94 H Respiratory Rate 18 Blood Pressure 146/68 H Pulse Oximetry 99 Intake & Output 05/23/18 05/24/18 05/24/18 18:59 06:59 18:59 Intake Total 683 / 683 958 / 958 500 / 500 Output Total 250 / 250 Balance 433 / 433 958 / 958 500 / 500 Weight 112.2 kg 112.2 kg Intake: IV 203 / 203 718 / 718 500 / 500 D10W Inj 500 ML @ 50 mls/hr IV. 203 / 203 203 / 203 500 / 500 SIG .Q10H [facility] Rx#:[id number] Vancomycin Inj 1,500 MG In NS 515 / 515 Inj 500 ML @ 250 mls/hr IV.SIG ONCE ONE Rx#:[id number] Oral 480 / 480 240 / 240 Output: Urine 250 / 250 Other: # Voids 5 # Incontinent Voids 2 Date of Last Bowel Movement 05/23/18 05/23/18 # Bowel Movements 1 1 Results Procedures completed during hospitalization: n/a Labs on day of discharge: Labs from last 24 hours 05/24/18 05/24/18 05/24/18 13:36 13:01 09:36 WBC RBC Hgb Hct MCV MCH MCHC RDW Plt Count MPV Sodium 142 Potassium 3.3 L Chloride 110 H Carbon Dioxide 20.2 L Anion Gap 12 BUN 5 L Creatinine 0.87 Estimated GFR 65 L POC Glucose 94 78 Random Glucose 86 Calcium 7.7 L Total Bilirubin AST ALT Alkaline Phosphatase Total Protein Albumin 05/24/18 05/24/18 05/23/18 08:10 08:10 20:43 WBC 6.7 RBC 3.06 L Hgb 9.4 L Hct 28.5 L MCV 93.2 MCH 30.6 MCHC 32.8 RDW 21.9 H Plt Count 138 L MPV 8.8 Sodium 141 Potassium 2.8 L* Chloride 111 H Carbon Dioxide 20.1 L Anion Gap 10 BUN 5 L Creatinine 0.74 Estimated GFR 79 L POC Glucose 123 H Random Glucose 80 Calcium 7.9 L D Total Bilirubin 0.5 AST 19 ALT 20 Alkaline Phosphatase 233 H Total Protein 5.2 L Albumin 1.6 L 05/23/18 17:29 WBC RBC Hgb Hct MCV MCH MCHC RDW Plt Count MPV Sodium Potassium Chloride Carbon Dioxide Anion Gap BUN Creatinine Estimated GFR POC Glucose 102 Random Glucose Calcium Total Bilirubin AST ALT Alkaline Phosphatase Total Protein Albumin - Impressions ITS Impressions Chest CT 05/12/18 00:00 CONCLUSION: 1. Confluent opacity in the right upper lobe that is new when compared to the prior study 2016. Morphology would favor scarring. There is mild associated bronchiectasis. More acute consolidation is also in the differential diagnosis. Neoplasm would be less likely but is in the differential diagnosis. Recommend a follow-up noncontrast chest CT confirm stability or resolution in 3 months. 2. Minimal nonspecific groundglass opacity in the left upper lobe. The prominent bilateral groundglass opacity seen on prior study of 2017 is not seen on today's study. Head CT 05/12/18 00:00 CONCLUSION: 1. No acute intracranial abnormalities. Stable chronic white matter ischemic changes. . Venous Doppler Study 05/12/18 00:00 CONCLUSION: No evidence of lower extremity DVT on the right or left. Abdomen/Pelvis CT 05/12/18 15:00 CONCLUSION: 1. Questionable mild mural thickening of the colon that could indicate a mild colitis, especially transverse colon. 2. Heterogeneous renal parenchymal enhancement not as optimally evaluated as on prior study. Cannot exclude pyelonephritis. 3. Bhagat catheter in decompressed bladder. 4. Hiatal hernia. 5. Moderate coronary calcifications. Abdomen X-Ray 05/12/18 21:10 CONCLUSION: Nasogastric tube in the stomach with the tip at the gastroesophageal junction. Venous Access Device Injection 05/21/18 00:00 CONCLUSION: 1. Focal fibrin sheath and associated thrombus at the port catheter tip. Catheter is otherwise patent with flow extending into right atrium. Plan: If port aspiration remains essential to continued clinical care, treatment options include stripping of the existing catheter or more ideally placement of a new [id number]. Chest X-Ray 05/21/18 06:00 CONCLUSION: Slight interval improvement in airspace opacities in the right upper lobe and left lung base. <Renata Sanchez - Last Filed: 05/25/18 16:56> Date of admission: 05/11/18 14:06 Primary care physician: MERLENE Flanagan DS: Diagnosis - Discharge Diagnosis (1) Hypokalemia Status: Acute (2) C. difficile colitis Status: Acute (3) Pneumonia Status: Acute (4) Murmur Status: Acute (5) Metastatic breast cancer Status: Chronic (6) Nutrition, metabolism, and development symptoms Status: Acute (7) DVT prophylaxis Status: Acute DS: Summary - Time Spent with Patient Total time spent providing and/or coordinating discharge services: Exam Vital signs: Intake & Output 05/24/18 05/25/18 05/25/18 18:59 06:59 18:59 Intake Total 500 / 500 Balance 500 / 500 Weight 112.2 kg Intake: IV 500 / 500 D10W Inj 500 ML @ 50 mls/hr IV. 500 / 500 SIG .Q10H [facility] Rx#:[id number] Results - Impressions ITS Impressions Chest CT 05/12/18 00:00 CONCLUSION: 1. Confluent opacity in the right upper lobe that is new when compared to the prior study 2016. Morphology would favor scarring. There is mild associated bronchiectasis. More acute consolidation is also in the differential diagnosis. Neoplasm would be less likely but is in the differential diagnosis. Recommend a follow-up noncontrast chest CT confirm stability or resolution in 3 months. 2. Minimal nonspecific groundglass opacity in the left upper lobe. The prominent bilateral groundglass opacity seen on prior study of 2017 is not seen on today's study. Head CT 05/12/18 00:00 CONCLUSION: 1. No acute intracranial abnormalities. Stable chronic white matter ischemic changes. . Venous Doppler Study 05/12/18 00:00 CONCLUSION: No evidence of lower extremity DVT on the right or left. Abdomen/Pelvis CT 05/12/18 15:00 CONCLUSION: 1. Questionable mild mural thickening of the colon that could indicate a mild colitis, especially transverse colon. 2. Heterogeneous renal parenchymal enhancement not as optimally evaluated as on prior study. Cannot exclude pyelonephritis. 3. Bhagat catheter in decompressed bladder. 4. Hiatal hernia. 5. Moderate coronary calcifications. Abdomen X-Ray 05/12/18 21:10 CONCLUSION: Nasogastric tube in the stomach with the tip at the gastroesophageal junction. Venous Access Device Injection 05/21/18 00:00 CONCLUSION: 1. Focal fibrin sheath and associated thrombus at the port catheter tip. Catheter is otherwise patent with flow extending into right atrium. Plan: If port aspiration remains essential to continued clinical care, treatment options include stripping of the existing catheter or more ideally placement of a new Pkmrhy-r-Vpis. Chest X-Ray 05/21/18 06:00 CONCLUSION: Slight interval improvement in airspace opacities in the right upper lobe and left lung base. Attestation Attestation: The exam, history, and the medical decision-making described in the above note were completed with the assistance of the resident physician. I reviewed and agree with the findings presented. I attest that I had a [id number] encounter with the patient on the same day, and personally performed and documented my assessment and findings in the medical record. thankfully, she was able to be discharged into the [facility] of [facility] Discharge Plan - Discharge Order Discharge Orders: Discharge Order (Routine); Ordered 05/24/18 Ordered By: Carley Crwoe - Discharge Details Anticipated Discharge Date: 05/24/18 - Physicians Team Primary Care Provider: Nichol Dominguez Attending Provider: Renata Sanchez Other Providers: Hernesto Garza MD ; Regis Banks MD ; Joann Maldonado MD ; Ahsan Zuñiga MD
[2018-05-24] MEDS: Enoxaparin Inj 40 MG/0.4 ML Syringe SQ SCH (15:57)
[2018-05-24 16:38] VITALS: PULSE 86
== END 2018-05-24 17:16 ==
LOC: NEPC 08:41 → NEDA 14:06 → N04 16:54 → HIMC 05-12 14:00 → N04 05-20 22:38
PROVIDERS: ADMIT Family Medicine; ATTEND Family Medicine

== ENCOUNTER 2018-07-20 12:15 | Observation (INO) ==
--- NOTE | 2018-07-20 13:18 | ED ---
HPI General Chief complaint: Weakness Stated complaint: Weakness Time Seen by Provider: 07/20/18 12:30 Source: patient and old records reviewed Mode of arrival: EMS Limitations: no limitations History of Present Illness MD Complaint: Reports focal weakness (lower extremities) Onset (ago): day(s) (1) Duration: constant Location: Reports LLE and RLE Migration: Reports none Severity: moderate Quality: Denies tingling, numbness and sharp Relieving factors: none Exacerbating factors: none Context: Reports other (h/o breast CA with mets to several areas of her C and T spines) Associated symptoms: Reports denies other symptoms Related Data Home Medications Medication Instructions Recorded Confirmed dexamethasone 1 mg PO DAILY 07/20/18 07/20/18 duloxetine [Cymbalta] 30 mg PO BID 07/20/18 07/20/18 furosemide [Lasix] 40 mg PO DAILY 07/20/18 07/20/18 omeprazole magnesium [Prilosec OTC] 20 mg PO DAILY 07/20/18 07/20/18 palbociclib [Ibrance] 100 mg PO DAILY 07/20/18 07/20/18 potassium 10 meq PO DAILY 07/20/18 07/20/18 spironolactone [Aldactone] 25 mg PO DAILY 07/20/18 07/20/18 Previous Rx's Medication Instructions Recorded lorazepam [Ativan] 1 mg PO BID #14 tab 06/07/18 Allergies Allergy/AdvReac Type Severity Reaction Status Date / Time hydromorphone [From Dilaudid] AdvReac Intermediate Dizziness Verified 07/20/18 12:32 Review of Systems ROS: all other systems reviewed are negative [facility] Medical History Medical History Breast cancer (Acute) GERD (gastroesophageal reflux disease) (Acute) Invasive lobular carcinoma of breast, stage 4 (Acute) 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 (Acute) Port-A-Cath in place (Acute) Psoriasis (Acute) Psoriatic arthritis (Acute) Restrictive lung disease (Acute) Surgical History Surgical History H/O mastectomy (Acute) History of knee replacement (Acute) History of open reduction and internal fixation (ORIF) procedure (Acute) Status post chemotherapy (Acute) Status post radiation therapy (Acute) Social History Social History Substance History: No History of Abuse Second Hand Smoke Exposure: No Smoking Status: Never smoker Tobacco Type: Cigarettes Packs Per Day: 0.5 (quit 8 weeks ago) Cigarettes Per Day: 10.0 How Often Do You Have a Drink Containing Alcohol: Never Recent Travel in [facility] within the Last 8 Weeks: No Recent Out of Country Travel within the Last 8 Weeks: No Immunization History Tetanus Immunization: <5 Years Exam Const General: cooperative, healthy appearing, comfortable, no acute distress and well developed Nutritional Appearance: obese Orientation: alert, awake and oriented x3 HENMT Head: normal to inspection, normocephalic and atraumatic Mouth: moist mucous membranes Eyes Alignment and Position: alignment normal and position abnormal Conjunctivae: conjunctivae normal Sclera: sclerae normal EOM: EOM intact bilaterally Neck Neck: normal visual inspection and full ROM Chest Chest: normal inspection of the chest Resp Effort & Inspection: normal respiratory effort and able to speak in complete sentences Auscultation: clear to auscultation bilaterally Cardio Rate: regular rate Rhythm: abnormal rhythm (It sounds like she probably has an underlying sinus rhythm with PACs.) with ectopic beats GI Inspection: normal to inspection Palpation: soft and nontender Back/Spine/Pelvis Cervical Spine: cervical ROM normal Thoracic/Lumbar Spine: thoraco-lumbar ROM normal Skin General: no rashes or lesions noted, turgor normal and dry skin Hair: general thinning Neuro General: alert, awake, oriented x3, moves all extremities and CN's II-XI intact bilaterally Extrem General: normal to inspection and full ROM Psych Appearance: grossly normal Mental Status: mental status grossly normal Speech and Movement: speech and movement normal Mood: congruent mood Affect: normal affect Attitude: cooperative Thought Process: normal Thought Content: normal Judgment: judgment good Course Consultations Consultation #1: Megan with case management recommends consult with hospice/ palliative care Time: 17:54 Consultation #2: Dr. Sauceda will place in OBS Time: 17:58 Initial Documented Vital Signs Temperature 98.0 F 07/20/18 12:27 Pulse Rate 72 07/20/18 12:27 Respiratory Rate 20 07/20/18 12:27 Blood Pressure 190/77 H 07/20/18 12:27 Pulse Oximetry 99 07/20/18 12:27 Last Documented Vital Signs Temperature 98.0 F 07/20/18 12:27 Pulse Rate 63 07/20/18 17:37 Respiratory Rate 20 07/20/18 17:37 Blood Pressure 156/69 H 07/20/18 17:37 Pulse Oximetry 99 07/20/18 17:37 Medical Decision Making MDM Narrative Medical decision making narrative: This patient presents with weakness. She states that she just got home from rehab on 07/16. She seemed to be doing pretty well. She was getting ready to go for a doctor's appointment yesterday and sat down on the sofa. When she tried to get back up off the sofa, she was unable to do so. She states that she has been sitting on the sofa for approximately 24 hours. Her home health nurse checked on her today and found that she has been confined to the sofa for a prolonged period of time. The home health nurse elicited the assistance of the fire department and the patient was subsequently brought to us for further evaluation and treatment. The patient's concern is that she has metastases to her lumbar spine or her hips causing her profound weakness in her legs. She states that she has never had any bony pain associated with her metastatic lesions. A "weakness" workup is in process. CT of the L-spine and pelvis are also in process. Labs and CT studies have now been completed and reviewed. The patient tells me that she did a clean catch urinalysis. Therefore, the UA is probably just contaminated. I will request an observation admission for further evaluation of the lesions seen on her CTs. Medical Screen Exam Complete: Yes Emergency Medical Condition: Yes Differential Diagnosis Differential Diagnosis: Differential diagnosis of weakness includes but is not limited to infection, CVA, electrolyte disturbance, renal failure, hypoglycemia Medical Records Medical records reviewed: Yes I reviewed the patient's medical records. This patient's primary medical issue is breast cancer with metastases to the spine. She is followed by Dr. Brown. She was just discharged from rehab on . She was in rehab because of weakness following sepsis. Prior to that, she was in a [facility] because of neurological symptoms associated with her meds. While in that [facility], she became septic necessitating a hospitalization. Following that, she was too weak to go home and was sent to rehab. Other medical issues include hypertension and restrictive lung disease. Patient has had numerous recent radiographic studies. I have reviewed her MRIs from April 2018. She was found to have several apparent metastatic lesions at that time including the left lesser trochanter, left femur, left iliac wing and left ischial tuberosity. Lab Data Lab results reviewed: Yes I reviewed the patient's lab results. Result diagrams: 07/20/18 12:50 07/20/18 12:50 Lab Results 07/20/18 07/20/18 07/20/18 Range/Units 12:50 12:50 15:15 WBC 4.3 (4.0-11.0) th/mm3 RBC 3.66 L (4.00-5.30) mil/mm3 Hgb 11.3 L (11.6-15.3) gm/dL Hct 35.4 (35.0-46.0) % MCV 96.6 (80.0-100.0) fL MCH 30.7 (27.0-34.0) pg MCHC 31.8 L (32.0-36.0) % RDW 17.5 H (11.6-17.2) % Plt Count 202 (150-450) th/mm3 MPV 7.9 (7.0-11.0) fL Neut % (Auto) 71.2 H (16.0-70.0) % Lymph % (Auto) 21.0 (9.0-44.0) % [place] % (Auto) 4.3 (0.0-8.0) % Eos % (Auto) 1.2 (0.0-4.0) % Baso % (Auto) 2.3 H (0.0-2.0) % Neut # (Auto) 3.1 (1.8-7.7) th/mm3 Lymph # (Auto) 0.9 L (1.0-4.8) th/mm3 [place] # (Auto) 0.2 (0.0-0.9) th/mm3 Eos # (Auto) 0.1 (0.0-0.4) th/mm3 Baso # (Auto) 0.1 (0.0-0.2) th/mm3 WBC Differential . Differential Comment Auto diff final Sodium 148 H (136-145) meq/L Potassium 3.5 (3.5-5.1) meq/L Chloride 112 H (98-107) meq/L Carbon Dioxide 23.5 (21.0-32.0) meq/L Anion Gap 13 (5-15) meq/L BUN 13 (7-18) mg/dL Creatinine 0.96 (0.50-1.00) mg/dL Estimated GFR 58 L (>89) mL/min Random Glucose 83 (74-106) mg/dL Calcium 8.8 (8.5-10.1) mg/dL Total Bilirubin 0.5 (0.2-1.0) mg/dL AST 43 H (15-37) U/L ALT 58 H (10-53) U/L Alkaline Phosphatase 140 H (45-117) U/L Troponin I Less than 0.02 L (0.02-0.05) ng/mL Total Protein 6.9 (6.4-8.2) g/dL Albumin 3.4 (3.4-5.0) g/dL Urine Color Yellow (Yellw/Straw) Urine Clarity Hazy H (Clear) Urine pH 6.0 (5.0-8.5) Ur Specific [place] 1.025 (1.002-1.035) Urine Protein Negative (Neg-Trace) mg/dL Urine Glucose (UA) Negative (Negative) mg/dL Urine Ketones Negative (Negative) mg/dL Urine Occult Blood Negative (Negative) Urine Nitrate Negative (Negative) Urine Bilirubin Negative (Negative) Urine Urobilinogen 2.0 H (Less than 2) mg/dL Ur Leukocyte Esterase Small H (Negative) Urine WBC 8 H (0-5) /hpf Hyaline Casts 1 (0-3) /lpf Urine Mucus Few H (Occasional) /lpf Micro UA Comment Culture indicated Ur Microscopic Review Not Reportable Urine Culture Comments Culture indicated Imaging Data Radiologist's impression: Lumbar Spine CT 07/20/18 13:01 CONCLUSION: 1. 1.6 cm rim calcified splenic artery aneurysm 2. Partial visualization of an area of lucency involving the T11 vertebral body. This is poorly characterized on this exam. Either CT scan or MRI of the thoracic spine would be needed to further assess this lesion. It is indeterminate within its visualized area. 3. 2 tiny sclerotic foci involving the sacrum which are indeterminate. MRI could be utilized to further assess. 4. Pronounced osteopenia. 5. Old L1 compression deformity. 6. Multilevel degenerative changes including areas of narrowing of the central canal as detailed at each level in the above discussion. Pelvis CT 07/20/18 13:01 CONCLUSION: 1. 2 rounded areas of increased density involving the central aspects of the sacrum. These are indeterminate. They could relate to simple bone islands. If there is strong clinical concern for metastatic disease consideration could be made to an outpatient PET CT. Degenerative changes of the hips and lumbar spine. Discharge Plan Discharge Disposition Patient Disposition: 30 Still Patient Discharge Details Diagnosis: Metastatic breast cancer Physicians Team ED Provider: Selena Harrell Primary Care Provider: Nichol Dominguez Rxs /Orders / Referrals /Forms Prescriptions: No Action lorazepam [Ativan] 1 mg tablet 1 mg PO BID Qty: 14 RF: 0 furosemide [Lasix] 40 mg Tablet 40 mg PO DAILY RF: 0 spironolactone [Aldactone] 25 mg Tablet 25 mg PO DAILY RF: 0 potassium 99 mg Tablet 10 meq PO DAILY RF: 0 dexamethasone 1 mg Tablet 1 mg PO DAILY RF: 0 omeprazole magnesium [Prilosec OTC] 20 mg Tablet,Delayed Release (Dr/Ec) 20 mg PO DAILY RF: 0 duloxetine [Cymbalta] 30 mg Capsule,Delayed Release(Dr/Ec) 30 mg PO BID RF: 0 palbociclib [Ibrance] 100 mg Capsule 100 mg PO DAILY RF: 0 Discharge Interventions Interventions: Vital Signs Last Done: 07/20/18 17:37 Status ED Status: With Doctor
[2018-07-20 14:14] LABS: Baso # (Auto) 0.1 th/mm3 (0.0-0.2); Baso % (Auto) 2.3 % (0.0-2.0); Eos # (Auto) 0.1 th/mm3 (0.0-0.4); Eos % (Auto) 1.2 % (0.0-4.0); Hematocrit 35.4 % (35.0-46.0); Hemoglobin 11.3 gm/dL (11.6-15.3); Lymph # (Auto) 0.9 th/mm3 (1.0-4.8); Mean Corpuscular HGB Conc 31.8 % (32.0-36.0); Mean Corpuscular Hemoglobin 30.7 pg (27.0-34.0); Mean Corpuscular Volume 96.6 fL (80.0-100.0); Mean Platelet Volume 7.9 fL (7.0-11.0); Mono # (Auto) 0.2 th/mm3 (0.0-0.9); Mono % (Auto) 4.3 % (0.0-8.0); Neut # (Auto) 3.1 th/mm3 (1.8-7.7); Neut % (Auto) 71.2 % (16.0-70.0); Platelet Count 202 th/mm3 (150-450); Red Blood Count 3.66 mil/mm3 (4.00-5.30); Red Cell Distribution Width 17.5 % (11.6-17.2); White Blood Count 4.3 th/mm3 (4.0-11.0)
[2018-07-20 14:27] LABS: Alanine Aminotransferase 58 U/L (10-53); Alkaline Phosphatase 140 U/L (45-117); Total Protein 6.9 g/dL (6.4-8.2)
[2018-07-20 14:28] LABS: Albumin 3.4 g/dL (3.4-5.0); Anion Gap 13 meq/L (5-15); Blood Urea Nitrogen 13 mg/dL (7-18); Calcium 8.8 mg/dL (8.5-10.1); Carbon Dioxide 23.5 meq/L (21.0-32.0); Chloride 112 meq/L (98-107); Glomerular Filtration Rate 58 mL/min (>89); Glucose,Random 83 mg/dL (74-106); Sodium 148 meq/L (136-145)
[2018-07-20 14:29] LABS: Aspartate Aminotransferase 43 U/L (15-37); Potassium 3.5 meq/L (3.5-5.1)
[2018-07-20 16:10] LABS: Bilirubin,Urine Negative (Negative); Clarity,Urine Hazy (Clear); Color,Urine Yellow (Yellw/Straw); Glucose,Urine (UA) Negative (Negative); Hyaline Casts,Urine 1 /lpf (0-3); Leukocyte Esterase,Urine Small (Negative); Mucus,Urine Few /lpf (Occasional); Nitrite,Urine Negative (Negative); Specific Gravity,Urine 1.025 (1.002-1.035)
[2018-07-20] MEDS ORDERED: Nitrofurantoin Monohydrate-Macrocrystal 100 MG Capsule PO ONE (16:20)
--- NOTE | 2018-07-20 17:27 | CT ---
EXAM DATE: 07/20/2018 1:10 PM EDT AGE/SEX: 68 years / Female INDICATIONS: Evaluate for metastatic disease. Decreased mobility. CLINICAL DATA: This is the patient's initial encounter. Patient reports that signs and symptoms have been present for 3 days and indicates a pain score of 8/10. MEDICAL/SURGICAL HISTORY: Metastatic disease. None. RADIATION DOSE: 45.04 CTDI (mGy) [place] [facility] [place]/2018. . . TECHNIQUE: Contiguous axial images were acquired with a multirow detector CT scanner without contras t. Multiplanar reconstructions in the sagittal and coronal plane were also performed. Using automate d exposure control and adjustment of the mA and/or kV according to patient size, radiation dose was k ept as low as reasonably achievable to obtain optimal diagnostic quality images. DICOM format image data is available electronically for review and comparison. FINDINGS: Vertebrae: Pronounced osteopenia. 10% loss of height of the superior endplate of L1 without cortical or trabecular irregularity. No acute compression fracture appreciated. On the very first image of th e study within the visualized portions of the T11 vertebral body is a lucent lesion involving the aliyah tebral body. I see no cortical destruction. 2 directly adjacent areas of rounded sclerosis involving the central aspects of the sacrum. Each measures 8 mm. No bony destruction. Subacute to chronic bilat eral L3 and right L4 transverse process fractures. Some callus formation is noted.. Alignment: Normal. No subluxation. A 1.6 cm rim calcified splenic artery aneurysm. T12-L1: The thecal sac has a normal diameter. No evidence of disc bulge or protrusion. The neural foramina are patent bilaterally. L1-L2: Broad-based disc osteophyte complex in combination with mild bony hypertrophy of the facets c auses mild narrowing the central canal and lateral recesses. Neural foramina remain patent. L2-L3: A moderate broad-based disc bulge in combination with moderate bony hypertrophy of the facets causes narrowing of the central canal and lateral recesses. Narrowing of the neural foramina as well seen bilaterally. L3-L4: A moderate broad-based disc bulge with moderate bony hypertrophy of the facets causes mild na rrowing of the central canal and lateral recesses. Neural foramina are patent bilaterally.. L4-L5: A moderate broad-based disc bulge in combination with pronounced bony hypertrophy of the face ts causes mild narrowing the central canal and lateral recesses. Neural foramina are patent.. L5-S1: The thecal sac has a normal diameter. No evidence of disc bulge or protrusion. The neural f oramina are patent bilaterally. Prominent bony hypertrophy of the facets. CONCLUSION: 1. 1.6 cm rim calcified splenic artery aneurysm 2. Partial visualization of an area of lucency involving the T11 vertebral body. This is poorly ramon acterized on this exam. Either CT scan or MRI of the thoracic spine would be needed to further assess this lesion. It is indeterminate within its visualized area. 3. 2 tiny sclerotic foci involving the sacrum which are indeterminate. MRI could be utilized to furt her assess. 4. Pronounced osteopenia. 5. Old L1 compression deformity. 6. Multilevel degenerative changes including areas of narrowing of the central canal as detailed at each level in the above discussion. Electronically signed by: Basim Raza MD 07/20/2018 5:26 PM EDT
--- NOTE | 2018-07-20 17:30 | CT ---
EXAM DATE: 07/20/2018 1:10 PM EDT AGE/SEX: 68 years / Female INDICATIONS: Evaluate for metastatic disease. Decreased mobility. CLINICAL DATA: This is the patient's initial encounter. Patient reports that signs and symptoms have been present for 3 days and indicates a pain score of 10/10. MEDICAL/SURGICAL HISTORY: Metastatic disease. None. RADIATION DOSE: 15.39 CTDI (mGy) COMPARISON: [facility] – [place] ABDOMEN & PELVIS W/O CONTRAST, 05/12/2018. . TECHNIQUE: Multiple contiguous axial images were obtained through the pelvis without contrast. Imag es were obtained using multiple row detector helical technique. . Using automated exposure control an d adjustment of the mA and/or kV according to patient size, radiation dose was kept as low as reasona juanita achievable to obtain optimal diagnostic quality images. DICOM format image data is available nory ctronically for review and comparison. FINDINGS: Bowel/Mesentery: The bowel loops are grossly unremarkable. The sigmoid colon has a normal configura tion. Bladder: Contours are smooth. Retroperitoneum: No evidence of deep pelvic adenopathy. Reproductive Organs: No abnormal masses or calcifications seen. Inguinal: The inguinal region is unremarkable without evidence of adenopathy. Bony Structures: To directly adjacent rounded areas of increased density are seen centrally within t he sacrum. These measure approximately 7- 8 mm in diameter. No bony destruction. Degenerative sclerot ic changes seen adjacent to the SI joints bilaterally without fusion or significant bridging osteophy patel. Degenerative changes involving the lower lumbar spine. Osteoarthritis involving the hip joints m ore pronounced on the right. No destructive lesion seen.. CONCLUSION: 1. 2 rounded areas of increased density involving the central aspects of the sacrum. These are indet erminate. They could relate to simple bone islands. If there is strong clinical concern for metastati c disease consideration could be made to an outpatient PET CT. Degenerative changes of the hips and l umbar spine. Electronically signed by: Basim Raza MD 07/20/2018 5:28 PM EDT
[2018-07-20] MEDS ORDERED: Bisacodyl 10 MG Supp RECTAL PRN (17:59)
[2018-07-20] MEDS: Sod Chloride 0.9% Inj 1,000 ML IV.CONT SCH ×2 (18:48→23:28)
--- NOTE | 2018-07-20 19:28 | P.HPIM ---
History of Present Illness Primary Care Physician: UNKNOWN History of Present Illness: This is a 68-year-old female with a PMH of Metastatic Breast CA s/p Mastectomy/ Chemo/Radiation, GERD and Restrictive Lung Disease who presented to the ER w/ c/ o bilateral lower extremity weakness. States she was recently in Rehab, however discharged few days early on 07/16/18 since pt had been doing well. Over the last 1wk, however, she's had progressive decline and worsening lower extremity weakness. Today, unable to get up from cough due to weakness. Denies fall, injury or trauma. On arrival, BP 190/77, HR 72, O2 sat 99% on RA, Afebrile. CBC essentially unremarkable. Chemistry essentially unremarkable except for GFR 58. Troponin negative. UA with UTI. CT L-spine with 1.6 cm calcified splenic artery aneurysm, lucency of T11 vertebral body, 2 sclerotic foci of sacrum indeterminant, recommendation for MRI, old L1 compression deformity. CT Pelvis 2 rounded areas of lucency along sacrum, possibly metastatic, consideration for PET/CT. Follows w/ Dr. Zuñiga as outpatient. - Diagnosis (1) Weakness (2) UTI (urinary tract infection) (3) Metastatic breast cancer Review of Systems PAST FAMILY HISTORY: Reviewed. No h/o DM or CAD All other systems reviewed negative except as stated in HPI PMFSH - History History Provided By: Patient - Medical History Medical History: Medical History (Last Reviewed 07/20/18 @ 13:12 by Selena Harrell) Breast cancer GERD (gastroesophageal reflux disease) Invasive lobular carcinoma of breast, stage 4 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 Port-A-Cath in place Psoriasis Psoriatic arthritis Restrictive lung disease - Surgical History Surgical History: Surgical History (Last Reviewed 07/20/18 @ 13:12 by Selena Harrell) H/O mastectomy History of knee replacement History of open reduction and internal fixation (ORIF) procedure Status post chemotherapy Status post radiation therapy - Family History Family History: Family History (Last Reviewed 07/20/18 @ 12:30 by Ashia Burnett) Mother Fibrosarcoma Father Liver disease - Tobacco History Second Hand Smoke Exposure: No Smoking Status: Never smoker Tobacco Type: Cigarettes Packs Per Day: 0.5 (quit 8 weeks ago) - Alcohol History How Often Do You Have a Drink Containing Alcohol: Never - Substance Use History Substance History: No History of Abuse - Travel History Recent Travel in the [place] Within the Last 8 Weeks: No Recent Travel Out of the Country Within the Last 8 Weeks: No - Immunization History Tetanus Immunization: <5 Years Medications and Allergies Active Medications: Active Medications Acetaminophen (Tylenol) 650 mg PO Q4H PRN PRN Reason: Headache, fever, pain 1-4 Al Hydroxide/Mg Hydroxide (Milk Of Magnesia Liq) 30 ml PO Q12H PRN PRN Reason: Mild Constipation Bisacodyl (Dulcolax Supp) 10 mg RECTAL DAILY PRN PRN Reason: SEVERE CONSITIPATION Sodium Chloride (Ns Inj) 1,000 mls @ 100 mls/hr IV.CONT .Q10H WILFREDO Last Admin: 07/20/18 18:48 Dose: 100 mls/hr Lactulose (Lactulose Liq) 30 ml PO DAILY PRN PRN Reason: SEVERE CONSITIPATION Sennosides (Senokot) 17.2 mg PO Q12H PRN PRN Reason: Moderate Constipation Sodium Chloride (Ns Flush) 2 ml IV.FLUSH PRN PRN PRN Reason: FLUSH AFTER USING IV ACCESS Allergies Allergy/AdvReac Type Severity Reaction Status Date / Time hydromorphone [From Dilaudid] AdvReac Intermediate Dizziness Verified 07/20/18 12:32 Home Medications Medication Instructions Recorded Confirmed Type dexamethasone 1 mg PO DAILY 07/20/18 07/20/18 History duloxetine [Cymbalta] 30 mg PO BID 07/20/18 07/20/18 History furosemide [Lasix] 40 mg PO DAILY 07/20/18 07/20/18 History omeprazole magnesium [Prilosec OTC] 20 mg PO DAILY 07/20/18 07/20/18 History palbociclib [Ibrance] 100 mg PO DAILY 07/20/18 07/20/18 History potassium 10 meq PO DAILY 07/20/18 07/20/18 History spironolactone [Aldactone] 25 mg PO DAILY 07/20/18 07/20/18 History Exam Vital signs: Vital Signs 07/20/18 12:27 07/20/18 12:37 07/20/18 12:38 Temperature 98.0 F Pulse Rate 72 63 63 Respiratory Rate 20 18 Blood Pressure 190/77 H 190/77 H Pulse Oximetry 99 99 99 07/20/18 15:12 07/20/18 17:37 Temperature Pulse Rate 65 63 Respiratory Rate 18 20 Blood Pressure 138/63 156/69 H Pulse Oximetry 97 99 Intake & Output 07/20/18 07/20/18 07/21/18 06:59 18:59 06:59 Weight 99.79 kg Narrative: PE: GENERAL: Very pleasant middle-aged white female in no acute distress. SKIN: Focused skin assessment warm and dry. HEENT: PERRLA, EOMI. No scleral icterus or conjunctival pallor. No lid lag or facial droop. CARDIOVASCULAR: Regular rate and rhythm. No obvious murmurs to auscultation. No chest tenderness to palpation. RESPIRATORY: No obvious rhonchi or wheezing. Clear to auscultation. Breath sounds equal bilaterally. GASTROINTESTINAL: Abdomen soft, non-tender, nondistended. BS normal. MUSCULOSKELETAL: Extremities without clubbing, cyanosis, or edema. No obvious deformities. NEUROLOGICAL: Awake, alert and oriented x4. No focal neurologic deficits. Moving both upper and lower extremities spontaneously. PSYCHIATRIC: Appropriate mood and affect. Insight and judgment normal. Results - Labs CBC & Chem 7: 07/20/18 12:50 07/20/18 12:50 Labs: Short CBC 07/20/18 Range/Units 12:50 WBC 4.3 (4.0-11.0) th/mm3 Hgb 11.3 L (11.6-15.3) gm/dL Hct 35.4 (35.0-46.0) % Plt Count 202 (150-450) th/mm3 BMP 07/20/18 12:50 Sodium 148 H Potassium 3.5 Chloride 112 H Carbon Dioxide 23.5 BUN 13 Creatinine 0.96 Calcium 8.8 Cardiac Enzymes 07/20/18 Range/Units 12:50 Troponin I Less than 0.02 L (0.02-0.05) ng/mL Liver Function 07/20/18 Range/Units 12:50 Total Bilirubin 0.5 (0.2-1.0) mg/dL AST 43 H (15-37) U/L ALT 58 H (10-53) U/L Alkaline Phosphatase 140 H (45-117) U/L Albumin 3.4 (3.4-5.0) g/dL Urine 07/20/18 Range/Units 15:15 Urine Color Yellow (Yellw/Straw) Urine Clarity Hazy H (Clear) Urine pH 6.0 (5.0-8.5) Ur Specific [place] 1.025 (1.002-1.035) Urine Protein Negative (Neg-Trace) mg/dL Urine Glucose (UA) Negative (Negative) mg/dL - Imaging Impressions Lumbar Spine CT 07/20/18 13:01 CONCLUSION: 1. 1.6 cm rim calcified splenic artery aneurysm 2. Partial visualization of an area of lucency involving the T11 vertebral body. This is poorly characterized on this exam. Either CT scan or MRI of the thoracic spine would be needed to further assess this lesion. It is indeterminate within its visualized area. 3. 2 tiny sclerotic foci involving the sacrum which are indeterminate. MRI could be utilized to further assess. 4. Pronounced osteopenia. 5. Old L1 compression deformity. 6. Multilevel degenerative changes including areas of narrowing of the central canal as detailed at each level in the above discussion. Pelvis CT 07/20/18 13:01 CONCLUSION: 1. 2 rounded areas of increased density involving the central aspects of the sacrum. These are indeterminate. They could relate to simple bone islands. If there is strong clinical concern for metastatic disease consideration could be made to an outpatient PET CT. Degenerative changes of the hips and lumbar spine. Caprini VTE Risk Assessment Caprini VTE Risk Assessment: No/Low Risk (score <= 1) Caprini Risk Assessment Model: Point Value = 1 Point Value = 2 Point Value = 3 Point Value = 5 Age 41-60 Minor surgery BMI > 25 kg/m2 Swollen legs Varicose veins or History of unexplained or recurrent spontaneous Oral contraceptives or hormone replacement Sepsis (< 1 month) Serious lung disease, including pneumonia (< 1 month) Abnormal pulmonary function Acute myocardial infarction Congestive heart failure (< 1 month) History of inflammatory bowel disease Medical patient at bed rest Age 61-74 Arthroscopic surgery Major open surgery (> 45 min) Laparoscopic surgery (> 45 min) Malignancy Confined to bed (> 72 hours) Immobilizing plaster cast Central venous access Age >= 75 History of VTE Family history of VTE Factor V Leiden Prothrombin [id number] Lupus anticoagulant Anticardiolipin antibodies Elevated serum homocysteine Heparin-induced thrombocytopenia Other congenital or acquired thrombophilia Stroke (< 1 month) Elective arthroplasty Hip, pelvis, or leg fracture Acute spinal cord injury (< 1 month) Prophylaxis Regimen: Total Risk Factor Score Risk Level Prophylaxis Regimen 0-1 Low Early ambulation 2 Moderate Order ONE of the following: *Sequential Compression Device (SCD) *Heparin 5000 units SQ BID 3-4 Higher Order ONE of the following medications: *Heparin 5000 units SQ TID *Enoxaparin/Lovenox 40 mg SQ daily (WT < 150 kg, CrCl > 30 mL/min) *Enoxaparin/Lovenox 30 mg SQ daily (WT < 150 kg, CrCl > 10-29 mL/min) *Enoxaparin/Lovenox 30 mg SQ BID (WT < 150 kg, CrCl > 30 mL/min) AND/OR *Sequential Compression Device (SCD) 5 or more Highest Order ONE of the following medications: *Heparin 5000 units SQ TID (Preferred with Epidurals) *Enoxaparin/Lovenox 40 mg SQ daily (WT < 150 kg, CrCl > 30 mL/min) *Enoxaparin/Lovenox 30 mg SQ daily (WT < 150 kg, CrCl > 10-29 mL/min) *Enoxaparin/Lovenox 30 mg SQ BID (WT < 150 kg, CrCl > 30 mL/min) AND *Sequential Compression Device (SCD) Assessment and Plan - Assessment (1) Weakness Code(s): R53.1 - Weakness Status: Acute (2) UTI (urinary tract infection) Code(s): N39.0 - Urinary tract infection, site not specified Status: Acute (3) Metastatic breast cancer Code(s): C50.919 - Malignant neoplasm of unspecified site of unspecified female breast Status: Chronic - Plan A/P: 1. Weakness: progressive lower extremity weakness x1 wk, recently d/c'd from Rehab, CT L-Spine w/ poorly characterized area of lucency T11, CT Pelvis w/ 2 sclerotic lesions along sacrum, possibly metastatic w/ recommendation for PET/ CT. Will consult PT for eval/tx. Consult Dr. Zuñiga for eval/recommendations regarding further imaging. 2. UTI: U/a w/ UTI, s/p Macrobid in ER, continue w/ IV Rocephin, IVF for hydration, monitor I/O, repeat labs in am, follow up cultures. 3. Metastatic Breast CA: S/p Mastectomy/Chemo/Radiation, following w/ Dr. Zuñiga, will consult for further evaluation. 4. DVT Prophylaxis: SCD/Teds 5. Social work for d/c planning as needed 6. Case discussed w/ ER physician at length, labs/records/imaging reviewed by me.
[2018-07-21] MEDS: Sod Chloride 0.9% Inj 1,000 ML IV.CONT SCH ×3 (09:55→23:46)
[2018-07-21] MEDS: Acetaminophen 325 MG Tablet PO PRN ×2 (10:07→22:28)
--- NOTE | 2018-07-21 13:32 | P.PNIM ---
Subjective Interval history: Patient reports she is still feeling weak but slightly improved. No chest pain or shortness of breath. Physical Exam Vital signs: Vital Signs 07/20/18 15:12 07/20/18 17:37 07/20/18 20:00 Temperature 97.7 F Pulse Rate 65 63 62 Respiratory Rate 18 20 16 Blood Pressure 138/63 156/69 H 116/57 L Pulse Oximetry 97 99 99 07/21/18 00:00 07/21/18 04:00 07/21/18 09:48 Temperature 97.7 F 97.6 F 97.8 F Pulse Rate 61 62 64 Respiratory Rate 18 18 16 Blood Pressure 126/63 132/71 105/53 L Pulse Oximetry 98 99 100 07/21/18 11:53 Temperature 98 F Pulse Rate 64 Respiratory Rate 16 Blood Pressure 116/67 Pulse Oximetry 100 Intake & Output 07/20/18 07/21/18 07/21/18 18:59 06:59 18:59 Intake Total 1480 / 1480 0 / 0 Balance 1480 / 1480 0 / 0 Weight 99.79 kg 99.7 kg Intake: IV 1000 / 1000 0 / 0 NS Inj 1,000 ML @ 100 mls/hr IV 1000 / 1000 0 / 0 .CONT .Q10H WILFREDO Rx#:[id number] Oral 480 / 480 Other: # Voids 1 Narrative: GENERAL: Elderly female in no acute distress. CARDIOVASCULAR: Normal rate and regular rhythm without murmurs, gallops, or rubs. RESPIRATORY: Good respiratory efforts. Breath sounds equal and clear to auscultation bilaterally. GASTROINTESTINAL: Abdomen soft, non-tender, non-distended. Normal active bowel sounds MUSCULOSKELETAL: Extremities without cyanosis, or edema. NEURO: Alert & Oriented x4 to person, place, time, situation. Moves all ext x4. Strength is 4/5 in lower extremities. PSYCH: Appropriate mood and affect. Results - Labs CBC & Chem 7: 07/20/18 12:50 07/20/18 12:50 Laboratory Results - last 24 hr 07/20/18 07/20/18 07/20/18 12:50 12:50 15:15 WBC 4.3 RBC 3.66 L Hgb 11.3 L Hct 35.4 MCV 96.6 MCH 30.7 MCHC 31.8 L RDW 17.5 H Plt Count 202 MPV 7.9 Neut % (Auto) 71.2 H Lymph % (Auto) 21.0 [place] % (Auto) 4.3 Eos % (Auto) 1.2 Baso % (Auto) 2.3 H Neut # (Auto) 3.1 Lymph # (Auto) 0.9 L [place] # (Auto) 0.2 Eos # (Auto) 0.1 Baso # (Auto) 0.1 WBC Differential . Differential Comment Auto diff final Sodium 148 H Potassium 3.5 Chloride 112 H Carbon Dioxide 23.5 Anion Gap 13 BUN 13 Creatinine 0.96 Estimated GFR 58 L Random Glucose 83 Calcium 8.8 Total Bilirubin 0.5 AST 43 H ALT 58 H Alkaline Phosphatase 140 H Troponin I Less than 0.02 L Total Protein 6.9 Albumin 3.4 Urine Color Yellow Urine Clarity Hazy H Urine pH 6.0 Ur Specific [place] 1.025 Urine Protein Negative Urine Glucose (UA) Negative Urine Ketones Negative Urine Occult Blood Negative Urine Nitrate Negative Urine Bilirubin Negative Urine Urobilinogen 2.0 H Ur Leukocyte Esterase Small H Urine WBC 8 H Hyaline Casts 1 Urine Mucus Few H Micro UA Comment Culture indicated Ur Microscopic Review Not Reportable Urine Culture Comments Culture indicated Microbiology 07/20/18 15:15 Clean Catch Urine Urine Culture - Preliminary Immature growth - reincubate - Imaging Impressions Lumbar Spine CT 07/20/18 13:01 CONCLUSION: 1. 1.6 cm rim calcified splenic artery aneurysm 2. Partial visualization of an area of lucency involving the T11 vertebral body. This is poorly characterized on this exam. Either CT scan or MRI of the thoracic spine would be needed to further assess this lesion. It is indeterminate within its visualized area. 3. 2 tiny sclerotic foci involving the sacrum which are indeterminate. MRI could be utilized to further assess. 4. Pronounced osteopenia. 5. Old L1 compression deformity. 6. Multilevel degenerative changes including areas of narrowing of the central canal as detailed at each level in the above discussion. Pelvis CT 07/20/18 13:01 CONCLUSION: 1. 2 rounded areas of increased density involving the central aspects of the sacrum. These are indeterminate. They could relate to simple bone islands. If there is strong clinical concern for metastatic disease consideration could be made to an outpatient PET CT. Degenerative changes of the hips and lumbar spine. Assessment and Plan - Assessment (1) Weakness Code(s): R53.1 - Weakness Status: Acute (2) UTI (urinary tract infection) Code(s): N39.0 - Urinary tract infection, site not specified Status: Acute (3) Metastatic breast cancer Code(s): C50.919 - Malignant neoplasm of unspecified site of unspecified female breast Status: Chronic - Plan 68-year-old female who presented with profound bilateral lower extremity weakness and inability to ambulate: Weakness in a patient with history Metastatic Breast CA S/p Mastectomy/Chemo/ Radiation: progressive lower extremity weakness x1 wk, recently d/c'd from Rehab, CT L-Spine w/ poorly characterized area of lucency T11, CT Pelvis w/ 2 sclerotic lesions along sacrum, possibly metastatic w/ recommendation for PET/ CT. - DW Oncologist Dr. Moulton, these lesions are not new when compared to previous outpatient imaging. Medication side effect is a possibility. -Continue with PT efforts. Brain MRI per Oncology UTI: U/a w/ UTI, s/p Macrobid in ER, continue w/ IV Rocephin, IVF for hydration , monitor I/O, follow up cultures. DVT Prophylaxis: SCD/Teds
--- NOTE | 2018-07-21 14:46 | MB ---
cc: Hesham Moulton MD DATE: 07/21/2018 ATTENDING PHYSICIAN: Dr. Russ REASON FOR CONSULTATION: Oncology consult rendering opinion on a patient with metastatic breast cancer, admitted with lower extremity weakness. HISTORY OF PRESENT ILLNESS: The patient is a 68-year-old female with history of breast cancer with metastasis to the bone presented to the hospital complaining of increased lower extremity weakness. She states that she was at a rehab center for about 5 weeks due to lower extremity weakness. She was just discharged this past 07/16/2018. She states that she was doing well and walking with home physical therapy. Around , she was sitting on a couch and she could not get up. He said that she ended up spending the night sitting on the couch. She decided to come in the hospital. She has been taking Ibrance and anastrozole for the metastatic breast cancer. She has also had radiation to the cervical spine. She denies any fever or chills. She denies significant headache or visual changes. She has no significant weakness of her arm. She denies any urinary or bowel incontinence. She denies any back pain. She has no chest pressure or palpitations. No shortness of breath or cough. Denies any change in urinary habits. Denies any rash or pruritus. PAST MEDICAL HISTORY: 1. Metastatic breast cancer, bone metastasis. 2. Gastroesophageal reflux disease. 3. Obesity. 4. Restrictive lung disease. 5. Psoriatic arthritis. 6. Hypertension. PAST SURGICAL HISTORY: 1. Left breast mastectomy. 2. Port placement 3. Bilateral knee replacement. 4. Left femur ORIF. 5. Left breast biopsy. FAMILY HISTORY: Mother had fibrosarcoma. SOCIAL HISTORY: Smoked half a pack a day for 40 years, quit about 2 months ago. Denies alcohol use. ALLERGIES: HYDROMORPHONE. CURRENT MEDICATIONS: Ceftriaxone. She was taking Ibrance and anastrozole. REVIEW OF SYSTEMS: CONSTITUTIONAL: As above. EYES: Negative. ENT: Negative. CARDIOVASCULAR: No chest pressure or palpitation. RESPIRATORY: No shortness of breath or cough. GASTROINTESTINAL: Negative. GENITOURINARY: No dysuria or hematuria. MUSCULOSKELETAL: As above. HEMATOLOGY: Negative. ENDOCRINE: Negative. DERMATOLOGY: Negative. PSYCHIATRIC: A little anxious. NEUROLOGIC: As above. PHYSICAL EXAMINATION: VITAL SIGNS: Temperature 97.8, blood pressure 105/53, O2 saturation 100% on room air. GENERAL: She is alert, oriented x3, no acute distress. HEENT: Atraumatic, normocephalic. Pupils are equal, round, reactive to light. Extraocular muscles are intact. No scleral icterus. Oropharynx dry mucosa. No lesion. NECK: No thyromegaly. No palpable mass. LYMPHATIC: No palpable cervical, clavicular, axillary or inguinal lymphadenopathy. CARDIOVASCULAR: Regular S1, S2. No murmur. LUNGS: Clear to auscultation without wheezing or rhonchi. ABDOMEN: Soft, nontender. Cannot palpate liver or spleen. EXTREMITIES: No cyanosis, no clubbing. No significant edema. No calf tenderness. BACK: No paravertebral tenderness. SKIN: No rash or petechiae. NEUROLOGIC: Decreased range of motion of right shoulder, chronic; slight weakness of the right proximal muscle of the thigh. LABORATORY DATA: WBC 4.3, hemoglobin 11.3, platelet count 202. Creatinine 0.96. Liver transaminase elevated. Urinalysis showed a small leukocyte esterase. ASSESSMENT AND PLAN: 1. Invasive lobular carcinoma of left breast first diagnosed in 2015. She was started on anastrozole, but 01/2018, she was found to have bone metastasis. She was started on Ibrance and Faslodex. She, however, noted to have progression of disease in the cervical spine and received radiation to the cervical spine. She was then switched to weekly Taxol, 03/2018; but only had 3 doses before she developed sepsis and Clostridium difficile colitis. Her condition has declined since then. She was started on Ibrance and anastrozole in June 2018, when she was in rehabilitation. Tumor was positive for hormone receptors and negative for HER2 receptor. She saw Dr. Zuñiga last week and started back on cycle 2 Ibrance and anastrozole. On presentation, she had a CT of the lumbar spine and pelvis, which showed 2 small lesions in the sacrum around 7 mm. There was also a lucency in T11 and an old L1 compression fracture. These are all known bone metastasis noted on prior MRI. The lower extremity weakness does not appear to be due to the metastatic breast cancer. The weakness possibility could be due to the Ibrance and anastrozole. We will hold the medication for now and see how she is doing. 2. Bilateral lower extremity weakness. She had similar symptoms several weeks ago and was in rehab for about 5 weeks. She was doing better and discharge from rehabilitation this past Monday. Over the last 3 days, she has increased lower extremity weakness again. On exam, her right lower extremity seems slightly weaker than the left. She has no headaches. She has no back pain. She has no bowel or urinary incontinence. CT of lumbar spine showed a T11 lucency, but no other obvious progression of metastatic breast cancer. I am going to get a brain MRI for further evaluation. If her symptoms do not improve, may need an MRI of the spine for further evaluation. 3. Gastroesophageal reflux disease. 4. Restrictive lung disease, no new symptoms. 5. Psoriatic arthritis, chronic joint ache. 6. Hypertension. 7. Obesity. RECOMMENDATIONS: 1. Hold Ibrance for now. 2. Get MRI of the brain. 3. Check tumor marker. 4. Consult physical therapy. 5. Consider MRI of the spine if she does not continue to improve. Thank you, Dr. Russ, for asking me to see this patient. MD KJ Haji/gabriela/clarke , 10:39 AM , 10:56 AM GLADIS
[2018-07-21] MEDS ORDERED: Gadobutrol PF 15 MMOL/15 ML Vial (for RAD) IV.SIG ONE (18:24)
--- NOTE | 2018-07-21 18:50 | MR ---
EXAM DATE: 07/21/2018 11:44 AM EDT AGE/SEX: 68 years / Female INDICATIONS: . Weakness in legs and right arm. CLINICAL DATA: This is the patient's initial encounter. Patient reports that signs and symptoms have been present for 2 days and indicates a pain score of 3/10. MEDICAL/SURGICAL HISTORY: Carcinoma, breast. Metastatic disease. Arthritis. High cholesterol . Mastectomy, left. Total knee replacement, left. Total knee replacement, right. [place] [facility] [place]. . TECHNIQUE: Multiplanar, multisequence examination of the brain was performed without and with 11cc ml Gadavist (gadobutrol) contrast as a single exam dose. FINDINGS: Cerebrum: Mild diffuse cerebral atrophy. The ventricles are normal for degree of atrophy. 4 mm rim- enhancing lesion likely extra-axial in the frontal high convexities on the right. No evidence of mid line shift, hemorrhage or acute infarction. No extraaxial fluid collections are seen. The pituitary gland and suprasellar cistern are normal in configuration. White Matter: Moderate periventricular and focal deep white matter T2 prolongation. Posterior Fossa: The cerebellum and brainstem are intact. The 4th ventricle is midline. The cerebel lopontine angle is unremarkable. The cerebellar tonsils are normal in position. Diffusion Imaging: No focal areas of restricted diffusion are seen. No evidence of acute infarction . Extracranial: 1 cm rim-enhancing lesion in the right posterior parietal bone. Multiple additional nassar bcentimeter focal abnormal foci of enhancement in the posterior parietal/occipital bone bilaterally. CONCLUSION: 1. 4 mm minimally enhancing extra-axial mass in the frontal high convexities on the right concerning for metastatic disease. 2. Multiple additional foci of abnormal enhancement in the calvaria measuring 1 cm or smaller also c oncerning for metastatic disease. 3. No acute infarction or hemorrhage. Electronically signed by: Luis Smith MD 07/21/2018 6:49 PM EDT
[2018-07-21] MEDS ORDERED: Pantoprazole Sodium 20 MG DR Tablet PO ONE (23:06)
[2018-07-22] MEDS: Sod Chloride 0.9% Inj 1,000 ML IV.CONT SCH ×4 (03:19→22:42)
--- NOTE | 2018-07-22 09:02 | P.PNONC ---
Subjective Interval history: Patient lying in bed, reports her lower extremity weakness is the same. She states she feels that she has taken a step backwards. She is ambulating to the restroom with her walker. I have offered a bedside commode and she declines at this time. Discussed MRI brain. She reports needing time to digest these results. She has some prognostic questions. She lives with her blind sister and her remaining siblings (2 brothers) reside in [place]. Objective Vital Signs/Intake & Output: Vital Signs 07/21/18 09:48 07/21/18 11:53 07/21/18 16:00 Temperature 97.8 F 98 F 99 F Pulse Rate 64 64 74 Respiratory Rate 16 16 Blood Pressure 105/53 L 116/67 119/53 L Pulse Oximetry 100 100 100 07/21/18 20:00 07/21/18 22:57 07/22/18 00:00 Temperature 98.5 F 97.8 F Pulse Rate 64 60 Respiratory Rate 18 18 16 Blood Pressure 145/73 H 112/59 L Pulse Oximetry 100 98 07/22/18 04:00 Temperature 97.7 F Pulse Rate 62 Respiratory Rate 18 Blood Pressure 119/64 Pulse Oximetry 100 Intake & Output 07/21/18 07/22/18 07/22/18 18:59 06:59 18:59 Intake Total 1080 / 1080 1580 / 1580 Balance 1080 / 1080 1580 / 1580 Weight 100.1 kg Intake: IV 0 / 0 1100 / 1100 NS Inj 1,000 ML @ 100 mls/hr IV 0 / 0 1000 / 1000 .CONT .Q10H [facility] Rx#:[id number] Rocephin Inj 1,000 MG In NS Inj 100 / 100 100 ML @ 200 mls/hr IV.SIG Q24H [facility] Rx#:[id number] Oral 1080 / 1080 480 / 480 Other: # Voids 2 2 Date of Last Bowel Movement 07/21/18 Result Diagrams: 07/20/18 12:50 07/20/18 12:50 Laboratory Results: Laboratory Results - last 24 hr 07/22/18 06:20 CA 15-3 Antigen 199.4 H Culture Results: Microbiology 07/20/18 15:15 Urine Culture - Preliminary Clean Catch Urine Immature growth - reincubate Imaging Studies: Impressions Head MRI 07/21/18 00:00 CONCLUSION: 1. 4 mm minimally enhancing extra-axial mass in the frontal high convexities on the right concerning for metastatic disease. 2. Multiple additional foci of abnormal enhancement in the calvaria measuring 1 cm or smaller also concerning for metastatic disease. 3. No acute infarction or hemorrhage. Medications: Active Medications Generic Name Dose Route Start Last Admin Trade Name Freq PRN Reason Stop Dose Admin Acetaminophen 650 mg 07/20/18 17:59 07/21/18 22:28 Tylenol PO 650 mg Q4H PRN Administration Headache, fever, pain 1-4 Sodium Chloride 1,000 mls @ 100 mls/hr 07/20/18 18:00 07/22/18 03:19 Ns Inj IV.CONT 100 mls/hr .Q10H WILFREDO Administration Ceftriaxone Sodium 1,000 mg/ 100 mls @ 200 mls/hr 07/21/18 21:00 07/21/18 23: 01 Sodium Chloride IV.SIG Infused Q24H [facility]O Infusion Sodium Chloride 2 ml 07/20/18 12:33 07/20/18 23:29 Ns Flush IV.FLUSH 2 ml PRN PRN Administration FLUSH AFTER USING IV ACCESS Objective Remarks: GENERAL: Chronically ill-appearing female patient, in no acute distress. SKIN: Pale, warm and dry. HEAD: Normocephalic. EYES: No scleral icterus. No injection or drainage. NECK: Supple, trachea midline. CARDIOVASCULAR: Regular rate and rhythm without murmurs. RESPIRATORY: Breath sounds clear, equal bilaterally. Nonlabored at rest. GASTROINTESTINAL: Abdomen soft, non-tender, nondistended. EXTREMITIES: No cyanosis, or edema. MUSCULOSKELETAL: Adequate muscle tone. NEUROLOGICAL: No obvious focal deficit. Awake, alert, and oriented x3. PSYCHIATRIC: Appropriate mood and affect; insight and judgment normal. 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 She was admitted for lower extremity weakness. She has a history of breast cancer with metastasis to the bone. After her previous hospitalization she was at rehab center for about 5 weeks due to lower extremity weakness. She was discharged this past 07/16/2018. She reportedly was doing well with her walker and home physical therapy, until on she was unable to get up from the couch. She has been taken Ibrance and anastrozole for the metastatic breast cancer. She is also received radiation to the cervical spine. Plan: 1. Metastatic breast cancer. Now with generalized lower extremity weakness. Ibrance is currently on hold. CA-15 is 199.4. MRI brain shows a 4 mm minimally enhancing extra-axial mass frontal high convexities on right concerning for metastatic disease. Multiple additional foci of abnormal enhancement in the calvaria measuring 1 cm smaller also concerning for metastatic disease. It did not show any acute infarcts or hemorrhage. Results discussed with the patient. 2. Generalized bilateral lower extremity weakness, possibly secondary to metastatic disease. 3. Continue supportive care. - Attending Statement The exam, history, and the medical decision-making described in the above note were completed with the assistance of the mid-level provider. I reviewed and agree with the findings presented. I attest that I had a [id number] encounter with the patient on the same day, and personally performed and documented my assessment and findings in the medical record. Patient anxious about MRI result. She is able to ambulate to the bathroom holding onto the IV pole. Her lower extremity strength seems better this morning. Review MRI of the brain with patient. There was a 4 mm possible extra-axial nodule in the right high convexity. There is no evidence of mass-effect or significant edema. This may be early metastatic lesion. I do not think this is causing her lower extremity weakness. MRI also showed multiple skull lesion which are likely old. Her tumor marker is elevated. Continue supportive care and physical therapy. Dr. Zuñiga will decide if patient will continue on Ibrance or to switch therapy.
[2018-07-22] MEDS: LORazepam 1 MG Tablet PO SCH ×2 (13:32→21:26)
--- NOTE | 2018-07-22 15:14 | P.PNIM ---
Subjective Interval history: Patient reports she is feeling better since she received Ativan earlier. She has been anxious due to the brain MRI findings. Physical Exam Vital signs: Vital Signs 07/21/18 16:00 07/21/18 20:00 07/21/18 22:57 Temperature 99 F 98.5 F Pulse Rate 74 64 Respiratory Rate 18 18 Blood Pressure 119/53 L 145/73 H Pulse Oximetry 100 100 07/22/18 00:00 07/22/18 04:00 07/22/18 08:50 Temperature 97.8 F 97.7 F 97.9 F Pulse Rate 60 62 66 Respiratory Rate 16 18 18 Blood Pressure 112/59 L 119/64 118/51 L Pulse Oximetry 98 100 100 07/22/18 11:29 Temperature 98.4 F Pulse Rate 69 Respiratory Rate 18 Blood Pressure 120/52 L Pulse Oximetry 99 Intake & Output 07/21/18 07/22/18 07/22/18 18:59 06:59 18:59 Intake Total 1080 / 1080 1580 / 1580 1000 / 1000 Balance 1080 / 1080 1580 / 1580 1000 / 1000 Weight 100.1 kg Intake: IV 0 / 0 1100 / 1100 1000 / 1000 NS Inj 1,000 ML @ 100 mls/hr IV 0 / 0 1000 / 1000 1000 / 1000 .CONT .Q10H [facility] Rx#:[id number] Rocephin Inj 1,000 MG In NS Inj 100 / 100 100 ML @ 200 mls/hr IV.SIG Q24H [facility] Rx#:[id number] Oral 1080 / 1080 480 / 480 Other: # Voids 2 2 Date of Last Bowel Movement 07/21/18 07/22/18 Narrative: GENERAL: Elderly female in no acute distress. CARDIOVASCULAR: Normal rate and regular rhythm without murmurs, gallops, or rubs. RESPIRATORY: Good respiratory efforts. Breath sounds equal and clear to auscultation bilaterally. GASTROINTESTINAL: Abdomen soft, non-tender, non-distended. Normal active bowel sounds MUSCULOSKELETAL: Extremities without cyanosis, or edema. NEURO: Alert & Oriented x4 to person, place, time, situation. Moves all ext x4. Strength is 4/5 in lower extremities. PSYCH: Appropriate mood and affect. Results - Labs CBC & Chem 7: 07/20/18 12:50 07/20/18 12:50 Laboratory Results - last 24 hr 07/22/18 06:20 CA 15-3 Antigen 199.4 H Microbiology 07/20/18 15:15 Clean Catch Urine Urine Culture - Final 10-50,000 cfu/mL mixed bert (probable contaminants) - Imaging Impressions Head MRI 07/21/18 00:00 CONCLUSION: 1. 4 mm minimally enhancing extra-axial mass in the frontal high convexities on the right concerning for metastatic disease. 2. Multiple additional foci of abnormal enhancement in the calvaria measuring 1 cm or smaller also concerning for metastatic disease. 3. No acute infarction or hemorrhage. Assessment and Plan - Assessment (1) Weakness Code(s): R53.1 - Weakness Status: Acute (2) UTI (urinary tract infection) Code(s): N39.0 - Urinary tract infection, site not specified Status: Acute (3) Metastatic breast cancer Code(s): C50.919 - Malignant neoplasm of unspecified site of unspecified female breast Status: Chronic - Plan 68-year-old female who presented with profound bilateral lower extremity weakness and inability to ambulate: Weakness in a patient with history Metastatic Breast CA S/p Mastectomy/Chemo/ Radiation: progressive lower extremity weakness x1 wk, recently d/c'd from Rehab, CT L-Spine w/ poorly characterized area of lucency T11, CT Pelvis w/ 2 sclerotic lesions along sacrum, possibly metastatic w/ recommendation for PET/ CT. - DW Oncologist Dr. Moulton, these lesions are not new when compared to previous outpatient imaging. Medication side effect is a possibility. -Continue with PT efforts. Brain MRI results noted. Further plans per oncologist Dr. Zuñiga. Anxiety/depression: - Resume home medications. Abnormal urinalysis: Patient treated with empiric antibiotics. Urine culture is negative. Discontinue antibiotics. DVT Prophylaxis: SCD/Teds Discharge Planning: Will need SNF versus home health.
[2018-07-22] MEDS: Pantoprazole Sodium 20 MG DR Tablet PO SCH (21:26)
[2018-07-23] MEDS: Sod Chloride 0.9% Inj 1,000 ML IV.CONT SCH ×2 (05:04→22:38)
[2018-07-23 07:17] LABS: Hemoglobin 9.3 gm/dL (11.6-15.3); Mean Corpuscular HGB Conc 32.2 % (32.0-36.0); Mean Corpuscular Hemoglobin 30.4 pg (27.0-34.0); Mean Corpuscular Volume 94.5 fL (80.0-100.0); Mean Platelet Volume 7.8 fL (7.0-11.0); Platelet Count 140 th/mm3 (150-450); Red Blood Count 3.07 mil/mm3 (4.00-5.30); Red Cell Distribution Width 17.1 % (11.6-17.2); White Blood Count 2.3 th/mm3 (4.0-11.0)
[2018-07-23 08:05] LABS: Alanine Aminotransferase 30 U/L (10-53); Albumin 2.5 g/dL (3.4-5.0); Alkaline Phosphatase 113 U/L (45-117); Anion Gap 9 meq/L (5-15); Aspartate Aminotransferase 17 U/L (15-37); Blood Urea Nitrogen 10 mg/dL (7-18); Calcium 7.8 mg/dL (8.5-10.1); Carbon Dioxide 19.8 meq/L (21.0-32.0); Chloride 116 meq/L (98-107); Glomerular Filtration Rate Greater Than 89 mL/min (>89); Glucose,Random 100 mg/dL (74-106); Potassium 3.9 meq/L (3.5-5.1); Sodium 145 meq/L (136-145); Total Protein 5.7 g/dL (6.4-8.2)
--- NOTE | 2018-07-23 08:26 | P.PNONC ---
Subjective Interval history: Ms. Sellers was seen and examined this morning, vital signs, labs, medications, imaging studies (including MRI brain, CT pelvis and CT lumbar spine) were all reviewed. Events over the past 2 days were also reviewed including ER MD notes, hospitalist notes and consult notes. Subjectively; the patient reports feeling somewhat improved today, she tells me she was able to get up out of bed by herself yesterday and walked to the bathroom. She did work with physical therapy as well yesterday. She tells me she was unable to get up out of her couch on morning, she had an appointment with her primary care physician but was unable to make it due to her weakness. She had to call EMS and they helped her get up and get around. She did not come into the hospital at that time because she felt she would be able to recover her strength. By Monday the symptoms of lower extremity weakness persisted and she decided to come into the emergency department at [facility]. Patient tells me in retrospect, she thinks she may have gotten "a little overwhelmed ". She underwent CT imaging of the pelvis, lumbar spine and MRI of the head. Her CT pelvis and lumbar spine CT scan indicated chronic findings of metastatic disease with sclerotic metastatic lesions and a chronic L1 compression deformity. The MRI of the brain revealed a 4 mm extra-axial metastatic deposit which likely has no contribution to her current symptoms. This morning, the patient brings up several issues, she wishes to know if Ibrance in any way may have resulted in her lower extremity weakness. She also wishes to discuss possible alternate forms of treatment such as systemic chemotherapy. Additionally she wants to know if returning to [place] where multiple additional family members live would be a good idea at this point. Objective Vital Signs/Intake & Output: Vital Signs 07/22/18 08:50 07/22/18 11:29 07/22/18 15:32 Temperature 97.9 F 98.4 F 98.7 F Pulse Rate 66 69 67 Respiratory Rate 18 18 18 Blood Pressure 118/51 L 120/52 L 144/67 H Pulse Oximetry 100 99 100 07/22/18 19:26 07/22/18 23:39 07/23/18 04:00 Temperature 98.2 F 98.3 F 97.9 F Pulse Rate 70 69 73 Respiratory Rate 16 17 18 Blood Pressure 123/57 L 145/65 H 141/70 H Pulse Oximetry 99 98 98 Intake & Output 07/22/18 07/23/18 07/23/18 18:59 06:59 18:59 Intake Total 2200 / 2200 1480 / 1480 Balance 2200 / 2200 1480 / 1480 Weight 121.7 kg Intake: IV 1000 / 1000 1000 / 1000 NS Inj 1,000 ML @ 100 mls/hr IV 1000 / 1000 1000 / 1000 .CONT .Q10H WILFREDO Rx#:[id number] Oral 1200 / 1200 480 / 480 Other: # Voids 3 4 Date of Last Bowel Movement 07/22/18 07/23/18 # Bowel Movements 1 2 Result Diagrams: 07/23/18 06:47 07/23/18 06:47 Laboratory Results: Laboratory Results - last 24 hr 07/22/18 07/23/18 07/23/18 06:20 06:47 06:47 WBC 2.3 L RBC 3.07 L Hgb 9.3 L Hct 29.0 L MCV 94.5 MCH 30.4 MCHC 32.2 RDW 17.1 Plt Count 140 L D MPV 7.8 Prelim Diff (Auto) Manual diff required Differential Comment . Sodium 145 Potassium 3.9 Chloride 116 H Carbon Dioxide 19.8 L Anion Gap 9 BUN 10 Creatinine 0.63 Estimated GFR Greater than 89 Random Glucose 100 Calcium 7.8 L Total Bilirubin 0.3 AST 17 ALT 30 Alkaline Phosphatase 113 Total Protein 5.7 L D Albumin 2.5 L CA 15-3 Antigen 199.4 H Culture Results: Microbiology 07/20/18 15:15 Urine Culture - Final Clean Catch Urine 10-50,000 cfu/mL mixed bert (probable contaminants) Medications: Active Medications Generic Name Dose Route Start Last Admin Trade Name Freq PRN Reason Stop Dose Admin Acetaminophen 650 mg 07/20/18 17:59 07/21/18 22:28 Tylenol PO 650 mg Q4H PRN Administration Headache, fever, pain 1-4 Calcium Carbonate 2,000 mg 07/22/18 11:06 07/22/18 10:00 Tums Chew CHEW 2,000 mg BID PRN Administration acid reflux Dexamethasone 1 mg 07/22/18 16:00 07/22/18 16:52 Decadron PO 1 mg DAILY WILFREDO Administration Duloxetine HCl 30 mg 07/22/18 21:00 07/22/18 21:26 Cymbalta PO 30 mg BID WILFREDO Administration Sodium Chloride 1,000 mls @ 100 mls/hr 07/20/18 18:00 07/23/18 05:04 Ns Inj IV.CONT Not Given .Q10H WILFREDO Lorazepam 1 mg 07/22/18 13:30 07/22/18 21:26 Ativan PO 1 mg BID WILFREDO Administration Pantoprazole Sodium 20 mg 07/22/18 21:00 07/22/18 21:26 Protonix PO 20 mg HS WILFREDO Administration Pramipexole Dihydrochloride 1 mg 07/22/18 21:00 07/22/18 21:26 Mirapex PO 1 mg HS WILFREDO Administration Sodium Chloride 2 ml 07/20/18 12:33 07/20/18 23:29 Ns Flush IV.FLUSH 2 ml PRN PRN Administration FLUSH AFTER USING IV ACCESS Objective Remarks: GENERAL: Elderly lady, laying in bed, not acutely distressed., She appears to be chronically ill. SKIN: Warm and dry. HEAD: Normocephalic. EYES: No scleral icterus. No injection or drainage. NECK: Supple, trachea midline. No JVD or lymphadenopathy. LYMPHATIC: No adenopathy. CARDIOVASCULAR: Regular rate and rhythm without murmurs. RESPIRATORY: Breath sounds equal bilaterally. No accessory muscle use, decreased basilar breath sounds. GASTROINTESTINAL: Obese abdomen, abdomen soft, non-tender, nondistended. EXTREMITIES: Generally decreased muscle mass no obvious pitting edema noted in the lower extremities. MUSCULOSKELETAL: Decreased muscle mass and tone. NEUROLOGICAL: Weakness on flexion of the right upper extremity at the elbow, no additional sensory or motor deficits of the upper extremities. Lower extremities with 4 x 5 strength on flexion and extension of the ankle and knees and hip joints. PSYCHIATRIC: Appropriate mood and affect; insight and judgment normal. 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 She was admitted for lower extremity weakness. She has a history of breast cancer with metastasis to the bone, her disease is hormone receptor positive and HER-2 negative. After her previous hospitalization she was at rehab center for about 5 weeks due to lower extremity weakness. She was discharged this past 07/16/2018. She reportedly was doing well with her walker and home physical therapy, until on (07/19/2018) she was unable to get up from the couch. She has been taken Ibrance and anastrozole for the metastatic breast cancer. She is also received radiation to the cervical spine for extensive metastatic disease involving the C6/C7 vertebral body. Plan: 1. Metastatic breast cancer: She had been on palliative combination therapy with Ibrance and anastrozole, this was intended to be a temporary measure while she waited discharged from her snf facility. She had been recovering very well up until the events of the past week. In particular, the patient had gradually improved functional status and independence in activities of daily living. She is now concerned that her muscle weakness may be an adverse effect related to Ibrance. Upon review of the commonly associated toxicities with Ibrance, muscle weakness has been identified and up to 20% of individuals on this medication. It may be reasonable to discontinue Ibrance altogether at this point and transition her to Verzenio in combination with Faslodex. 2. Generalized bilateral lower extremity weakness: Possible etiologies include Ibrance related adverse effect, physical deconditioning, morbid obesity, corticosteroid associated muscle weakness, metastatic disease burden involving the lumbar spine. I explained to the patient that physical therapy is of utmost importance to her and that she had to continue participating. 3. Continue supportive care. 4. The patient is clear for discharge from an oncologic standpoint, she may resume anastrozole upon discharge. I will advised to hold off on Ibrance until her weakness recovers. I will work with my outpatient resource nurses to request approval for Verzenio which will be an alternate to Ibrance.
[2018-07-23 08:35] LABS: Lymphocytes 26 % (9-44); Monocytes 2 % (0-8); Myelocytes 1 % (0-0); Ovalocytes 1+; Platelet Morphology Normal (Normal); Tear Drop Cells 1+
[2018-07-23] MEDS: Furosemide 40 MG Tablet PO SCH (08:39)
[2018-07-23] MEDS: LORazepam 1 MG Tablet PO SCH ×2 (08:39→20:50)
[2018-07-23] MEDS: Spironolactone 25 MG Tablet PO SCH (08:39)
[2018-07-23] MEDS ORDERED: Sodium Chloride 0.9% 2 ML Flush PRN IV.FLUSH (09:36)
--- NOTE | 2018-07-23 11:08 | P.CONPAL ---
Consult Service: Palliative Care Requesting Physician: Patsy Sauceda Reason for Consult: a. To assist with evaluation and management of symptoms including: Pain, physical deconditioning b. To assist medical decision maker(s) with: better understanding of current medical conditions; weighing benefits/burdens of medical treatment options; making medical treatment decisions. Primary Care Provider: UNKNOWN History of Present Illness History of Present Illness: Ms. Sellers is a 68 years old female with a medical history significant for breast carcinoma with metastatic disease to the cervical and thoracic vertebral bodies, psoriatic arthritis, restrictive lung disease, and gastroesophageal reflux disease. Patient presented to the ER via EMS on 07/20/18 with complaints of bilateral lower extremity weakness. Patient had just been discharged from rehabilitation on 07/16/18. On 07/20/18 patient was found by home health care nurse confined to a sofa for a prolonged period of time and unable to get up by herself. Patient was assisted by the fire department and was brought to the emergency room for further evaluation. ER course : * Vital signs: Temperature 98.0F, pulse 72, respirations 20, blood pressure 192 /77, pulse oximetry 99% * Laboratory workup revealed WBC 4.3, hemoglobin 11.3, hematocrit 35.4, platelet count 202, sodium 148, potassium 3.5, BUN/creatinine 13/0.96, AST 43, ALT 58, alkaline phosphatase 140, troponin less than 0.02, total protein 6.9, albumin 3.4 * CT lumbar spine revealed calcified splenic artery aneurysm, 2 sclerotic foci involving the sacrum which are indeterminate. Pronounced osteopenia. Old L1 compression deformity. And multilevel degenerative changes including areas of narrowing of the central canal. MRI recommended. * CT pelvis revealed 2 rounded areas of increased density involving the central aspects of the sacrum. These are indeterminate. They could relate to simple bone islands. Degenerative changes of the hips and lumbar spine. * Urinalysis positive for leukocytes esterase-culture indicated * [facility] and treatment. Oncology Dr. Moulton consulted on 07/21/18 for evaluation of patient with metastatic breast cancer with complaints of bilateral lower extremity weakness, recommended holding name brands now, MRI of the brain and spine, check tumor marker and consulting physical therapy. PT consulted, recommended PT at rehab. MRI head on 07/21/18 revealed 4 mm minimally enhancing extra-axial mass in the frontal high convexities on the right concerning for metastatic disease and multiple additional foci of abnormal enhancement in the calvaria measuring 1 cm or smaller also concerning for metastatic disease and no acute infarction or hemorrhage. Laboratory workup on 07/22/18 revealed CA 15-3 Antigen 199.4. Patient is raise concern that muscle weakness she is experiencing may be an adverse effect related to endurance. Per Oncology notes muscle weakness has been identified on 20% of individuals on Ibrance . Oncology recommending discontinuing Ibrance and transitioning patient to Verzinio in combination with Faslodex. Clinical course complicated with weakness to bilateral lower extremities. Palliative care consulted to assist with symptom management and establishment of goals of medical treatment. Patient seen and examined in the room. Patient is awake, alert, oriented to self, place and situation. She states that she feels much better than she did when she was admitted in the hospital. Patient rating her pain as 5/10 and describes it as chronic and generalized achy pain to her bilateral knees, sometimes neck. Patient states that she does not want to take narcotics because being aware of her surroundings and and being cognitively aware of what is happening is important to her. She states that at home if pain is excruciating she will take Acetaminophen and worst case scenario she took Tramadol. Obtained psychosocial, past medical history and events leading to this hospitalization. Patient appears to have insight regarding his medical condition and shows ability to be able to weigh burdens and benefits of treatments. Patient has never completed advanced directives. 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 At this time patient is not sure she would trust to make medical decisions for hay in the event that she is incapacitated. She states that she will have to think about it and probably work on completing healthcare surrogate sometime in the near future. Patient is single and never had children. Patient has 4 siblings, her sister who is legally blind whom she lives with and her 3 brothers who reside in [place], [place]. Explained to patient how [place] to determine lawful health care proxy. Encouraged patient to complete advance directives. Readdressed CODE STATUS, discussed CPR limitations, complications and benefits. Patient elected full code. She feels that after discussing with her oncologist, she still has other treatments she can try and feels she still wants to keep trying aggressive treatment though she understands that she may or may not respond to treatment. Briefly broached hospice philosophy and benefits. Patient states that she is not ready for hospice at this time. Patient`s main concern at this time is finding resources to help her legally blind sister since she will not be able to do much for her due to her own ongoing multiple comorbidities. Patient states that she opted to be discharged home with home health care so that she can be able to help her sister. She is looking forward to be discharged home today. Function/Cognitive Trajectory: Patient was diagnosed with a locally advanced invasive lobular carcinoma of the left breast in August 2015. Patient underwent surgical resection in [facility] and was found to have pathologic stage T2N1. Patient was recommended adjuvant endocrine therapy with anastrozole alone by Dr. Mary Engel. Patient was seen by Dr. Zuñiga in July 2017 who recommended continuation of adjuvant endocrine therapy with anastrozole. In November, patient developed hip pain and CT of the pelvis was noted to have lytic lesions involving the shaft of the proximal left femur with findings concerning for metastatic disease. PET CT scan on 01/22/2018 revealed extensive metastatic disease burden involving the entire C7 vertebral body. MRI of the C-spine on confirmed presence of extensive metastatic disease to the C7 vertebral body. In April 2018, patient had multiple MRIs which showed metastatic lesions to left lesser trochanter, left femur, left iliac wing and left ischial tuberosity. Patient is taking aprons and anastrozole for the metastatic breast cancer and received radiation to the cervical spine. Patient was in a detention due to neurological symptoms associated with the medications. She developed sepsis while in the detention and was hospitalized for sepsis and was then discharged to a rehab facility due to ( bilateral lower extremity weakness ). She was discharged home on 07/16/18. At time of discharge from rehabilitation patient stated that she was doing well and walking with home physical therapy. Patient independent of all her ADLs prior to hospitalization. Observed patient ambulating to the toilet with a rolling walker during visit. Able to verbalize her needs. Review of Systems Constitutional: Reports weakness (To bilateral lower extremities), Denies chills , Denies fever(s), Denies weight loss (30lbs in 3 months) Eyes: Denies blurry vision, Denies double vision Ears, Nose, Mouth, and Throat: Denies abnormal hearing, Denies hearing loss, Denies hoarseness, Denies nasal obstruction, Denies pain with swallowing Cardiovascular: Reports foot swelling, Denies chest pain, Denies fast heart rate , Denies leg swelling, Denies rapid, pounding, or irregular heartbeat Respiratory: Denies cough, Denies shortness of breath Gastrointestinal: Denies abdominal pain, Denies difficulty swallowing, Denies loose stools, Denies nausea, Denies vomiting Genitourinary: Denies blood in urine, Denies urinary incontinence Musculoskeletal: Reports limited joint movement (right upper extremity) Skin/Breast: Reports unusual bruising, Denies bleeding lesions Neurologic: Denies abnormal hearing, Denies abnormal speech, Denies confusion, Denies frequent falls, Denies lack of coordination Psychiatric: Denies change in appetite, Denies confusion, Denies memory loss Endocrine: Denies increased urination Hematologic/Lymphatic: Reports easy bruising PMFSH - History History Provided By: Patient, Medical Record - Medical History Medical History: Medical History (Last Updated 07/23/18 @ 10:16 by Tulio Aguilar) Hypertension Obesity GERD (gastroesophageal reflux disease) Invasive lobular carcinoma of breast, stage 4 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 Port-A-Cath in place Psoriasis Psoriatic arthritis Restrictive lung disease - Surgical History Surgical History: Surgical History (Last Updated 07/23/18 @ 10:20 by Tulio Aguilar) History of open reduction and internal fixation (ORIF) procedure (Resolved) H/O left breast biopsy History of mastectomy History of total left knee replacement History of total right knee replacement Status post chemotherapy Status post radiation therapy - Family History Family History: Family History (Last Updated 07/23/18 @ 10:22 by Tulio Aguilar) Mother Fibrosarcoma Father Liver cancer Grandparent Breast cancer - Tobacco History Second Hand Smoke Exposure: Yes Tobacco Use In Past 30 Days: No Smoking Status: Former smoker Tobacco Type: Cigarettes Packs Per Day: 0.5 (quit 8 weeks ago) - Alcohol History How Often Do You Have a Drink Containing Alcohol: Never - Substance Use History Substance History: No History of Abuse - Travel History Recent Travel in the [place] Within the Last 8 Weeks: No Recent Travel Out of the Country Within the Last 8 Weeks: No - Immunization History Tetanus Immunization: <5 Years Medications and Allergies Active Medications: Active Medications Acetaminophen (Tylenol) 650 mg PO Q4H PRN PRN Reason: Headache, fever, pain 1-4 Last Admin: 07/21/18 22:28 Dose: 650 mg Al Hydroxide/Mg Hydroxide (Milk Of Magnesia Liq) 30 ml PO Q12H PRN PRN Reason: Mild Constipation Bisacodyl (Dulcolax Supp) 10 mg RECTAL DAILY PRN PRN Reason: SEVERE CONSITIPATION Calcium Carbonate (Tums Chew) 2,000 mg CHEW BID PRN PRN Reason: acid reflux Last Admin: 07/22/18 10:00 Dose: 2,000 mg Dexamethasone (Decadron) 1 mg PO DAILY [facility] Last Admin: 07/23/18 09:34 Dose: 1 mg Duloxetine HCl (Cymbalta) 30 mg PO BID [facility] Last Admin: 07/23/18 08:39 Dose: 30 mg Furosemide (Lasix) 40 mg PO DAILY [facility] Last Admin: 07/23/18 08:39 Dose: 40 mg Sodium Chloride (Ns Inj) 1,000 mls @ 100 mls/hr IV.CONT .Q10H [facility] Last Admin: 07/23/18 05:04 Dose: Not Given Lactulose (Lactulose Liq) 30 ml PO DAILY PRN PRN Reason: SEVERE CONSITIPATION Lorazepam (Ativan) 1 mg PO BID [facility] Last Admin: 07/23/18 08:39 Dose: 1 mg Ondansetron HCl (Zofran Inj) 4 mg IV.PUSH Q6H PRN PRN Reason: NAUSEA/VOMITING Pantoprazole Sodium (Protonix) 20 mg PO [facility] Last Admin: 07/22/18 21:26 Dose: 20 mg Potassium Chloride (Klor-Con 10) 10 meq PO DAILY [facility] Last Admin: 07/23/18 08:39 Dose: 10 meq Pramipexole Dihydrochloride (Mirapex) 1 mg PO [facility] Last Admin: 07/22/18 21:26 Dose: 1 mg Sennosides (Senokot) 17.2 mg PO Q12H PRN PRN Reason: Moderate Constipation Sodium Chloride (Ns Flush) 2 ml IV.FLUSH BID [facility] Sodium Chloride (Ns Flush) 2 ml IV.FLUSH PRN PRN PRN Reason: FLUSH AFTER USING IV ACCESS Spironolactone (Aldactone) 25 mg PO DAILY [facility] Last Admin: 07/23/18 08:39 Dose: 25 mg Allergies Allergy/AdvReac Type Severity Reaction Status Date / Time hydromorphone [From Dilaudid] AdvReac Intermediate Dizziness Verified 07/20/18 12:32 Home Medications Medication Instructions Recorded Confirmed Type dexamethasone 1 mg PO DAILY 07/20/18 07/20/18 History duloxetine [Cymbalta] 30 mg PO BID 07/20/18 07/20/18 History furosemide [Lasix] 40 mg PO DAILY 07/20/18 07/20/18 History omeprazole magnesium [Prilosec OTC] 20 mg PO DAILY 07/20/18 07/20/18 History potassium 10 meq PO DAILY 07/20/18 07/20/18 History spironolactone [Aldactone] 25 mg PO DAILY 07/20/18 07/20/18 History pramipexole [Mirapex] PO ACHS 07/21/18 History Advance Directives Living Will: No Healthcare Surrogate: No Power of Construction Foreman: No Today's verbally stated goals: Patient ready to be discharged home with home health care today. Patient is hopeful to be started on Verzinio in combination with Faslodex as per her discussion with his oncologist. Ethical and Legal Issues: None identified at this time Physical Exam Vital Signs: Vital Signs - 24 hr 07/22/18 11:29 07/22/18 15:32 07/22/18 19:26 Temperature 98.4 F 98.7 F 98.2 F Pulse Rate 69 67 70 Respiratory Rate 18 18 16 Blood Pressure 120/52 L 144/67 H 123/57 L Pulse Oximetry 99 100 99 07/22/18 23:39 07/23/18 04:00 07/23/18 08:00 Temperature 98.3 F 97.9 F 98.5 F Pulse Rate 69 73 76 Respiratory Rate 17 18 18 Blood Pressure 145/65 H 141/70 H 165/72 H Pulse Oximetry 98 98 100 I&O: Intake & Output 07/21/18 07/22/18 07/23/18 07/24/18 06:59 06:59 06:59 06:59 Intake Total 1480 / 1480 2660 / 2660 3680 / 3680 Balance 1480 / 1480 2660 / 2660 3680 / 3680 Weight 99.7 kg 100.1 kg 121.7 kg Physical Exam: CONSTITUTIONAL/GENERAL: This is an obese patient, in no apparent distress. TUBES/LINES/DRAINS:PIV SKIN: No jaundice, rashes, or lesions. Ecchymoses on upper extremities. No wounds seen anteriorly. Skin temperature appropriate. Not diaphoretic. HEAD: Atraumatic. Normocephalic. EYES: Pupils equal and round and reactive. Extraocular motions intact. No scleral icterus. No injection or drainage. Fundi not examined. ENT: Hearing grossly normal. Nose without bleeding or purulent drainage.Has Upper dentures. Moist oral mucosa NECK: Trachea midline. Supple, nontender. CARDIOVASCULAR: Regular rate and rhythm without murmurs, gallops, or rubs. No JVD. Peripheral pulses symmetric. RESPIRATORY/CHEST: Symmetric, unlabored respirations. Clear to auscultation. Breath sounds equal bilaterally. No wheezes, rales, or rhonchi. GASTROINTESTINAL: Abdomen obese, soft, non-tender, nondistended. No guarding. Bowel sounds present. GENITOURINARY: Without palpable bladder distension. MUSCULOSKELETAL: Extremities without clubbing, cyanosis, or edema. No joint tenderness or effusion noted. No calf tenderness. No mottling or clubbing. LYMPHATICS: Did not assess NEUROLOGICAL: Awake and alert. Motor and sensory grossly within normal limits. Follows commands. Cognitively sharp. Moves all extremities. PSYCHIATRIC: No obvious anxiety/depression. no apparent hallucinations or other psychotic thought process. Diagnostic Tests Laboratory: Laboratory Results - last 72 hr 07/20/18 07/20/18 07/20/18 12:50 12:50 15:15 WBC 4.3 RBC 3.66 L Hgb 11.3 L Hct 35.4 MCV 96.6 MCH 30.7 MCHC 31.8 L RDW 17.5 H Plt Count 202 MPV 7.9 Prelim Diff (Auto) Neut % (Auto) 71.2 H Lymph % (Auto) 21.0 [place] % (Auto) 4.3 Eos % (Auto) 1.2 Baso % (Auto) 2.3 H Neut # (Auto) 3.1 Lymph # (Auto) 0.9 L [place] # (Auto) 0.2 Eos # (Auto) 0.1 Baso # (Auto) 0.1 WBC Differential . Seg Neuts % (Manual) Band Neuts % (Manual) Lymphocytes % (Manual) Monocytes % (Manual) Basophils % (Manual) Myelocytes % (Man) Abs Neuts (Manual) Differential Comment Auto diff final Platelet Estimate Platelet Morphology Tear Drop Cells Ovalocytes Sodium 148 H Potassium 3.5 Chloride 112 H Carbon Dioxide 23.5 Anion Gap 13 BUN 13 Creatinine 0.96 Estimated GFR 58 L Random Glucose 83 Calcium 8.8 Total Bilirubin 0.5 AST 43 H ALT 58 H Alkaline Phosphatase 140 H Troponin I Less than 0.02 L Total Protein 6.9 Albumin 3.4 CA 15-3 Antigen Urine Color Yellow Urine Clarity Hazy H Urine pH 6.0 Ur Specific Gates 1.025 Urine Protein Negative Urine Glucose (UA) Negative Urine Ketones Negative Urine Occult Blood Negative Urine Nitrate Negative Urine Bilirubin Negative Urine Urobilinogen 2.0 H Ur Leukocyte Esterase Small H Urine WBC 8 H Hyaline Casts 1 Urine Mucus Few H Micro UA Comment Culture indicated Ur Microscopic Review Not Reportable Urine Culture Comments Culture indicated 07/22/18 07/23/18 07/23/18 06:20 06:47 06:47 WBC 2.3 L RBC 3.07 L Hgb 9.3 L Hct 29.0 L MCV 94.5 MCH 30.4 MCHC 32.2 RDW 17.1 Plt Count 140 L D MPV 7.8 Prelim Diff (Auto) Manual diff required Neut % (Auto) Lymph % (Auto) [place] % (Auto) Eos % (Auto) Baso % (Auto) Neut # (Auto) Lymph # (Auto) [place] # (Auto) Eos # (Auto) Baso # (Auto) WBC Differential Manual diff final Seg Neuts % (Manual) 69 Band Neuts % (Manual) 1 Lymphocytes % (Manual) 26 Monocytes % (Manual) 2 Basophils % (Manual) 1 Myelocytes % (Man) 1 H Abs Neuts (Manual) 1.6 L Differential Comment . Platelet Estimate Low L Platelet Morphology Normal Tear Drop Cells 1+ H Ovalocytes 1+ H Sodium 145 Potassium 3.9 Chloride 116 H Carbon Dioxide 19.8 L Anion Gap 9 BUN 10 Creatinine 0.63 Estimated GFR Greater than 89 Random Glucose 100 Calcium 7.8 L Total Bilirubin 0.3 AST 17 ALT 30 Alkaline Phosphatase 113 Troponin I Total Protein 5.7 L D Albumin 2.5 L CA 15-3 Antigen 199.4 H Urine Color Urine Clarity Urine pH Ur Specific Gates Urine Protein Urine Glucose (UA) Urine Ketones Urine Occult Blood Urine Nitrate Urine Bilirubin Urine Urobilinogen Ur Leukocyte Esterase Urine WBC Hyaline Casts Urine Mucus Micro UA Comment Ur Microscopic Review Urine Culture Comments Result Diagrams: 07/23/18 06:47 07/23/18 06:47 Microbiology: Microbiology 07/20/18 15:15 Urine Culture - Final Clean Catch Urine 10-50,000 cfu/mL mixed bert (probable contaminants) Imaging: Lumbar Spine CT 07/20/18 13:01 CONCLUSION: 1. 1.6 cm rim calcified splenic artery aneurysm 2. Partial visualization of an area of lucency involving the T11 vertebral body. This is poorly characterized on this exam. Either CT scan or MRI of the thoracic spine would be needed to further assess this lesion. It is indeterminate within its visualized area. 3. 2 tiny sclerotic foci involving the sacrum which are indeterminate. MRI could be utilized to further assess. 4. Pronounced osteopenia. 5. Old L1 compression deformity. 6. Multilevel degenerative changes including areas of narrowing of the central canal as detailed at each level in the above discussion. Pelvis CT 07/20/18 13:01 CONCLUSION: 1. 2 rounded areas of increased density involving the central aspects of the sacrum. These are indeterminate. They could relate to simple bone islands. If there is strong clinical concern for metastatic disease consideration could be made to an outpatient PET CT. Degenerative changes of the hips and lumbar spine. Head MRI 07/21/18 00:00 CONCLUSION: 1. 4 mm minimally enhancing extra-axial mass in the frontal high convexities on the right concerning for metastatic disease. 2. Multiple additional foci of abnormal enhancement in the calvaria measuring 1 cm or smaller also concerning for metastatic disease. 3. No acute infarction or hemorrhage. Patient/Family Conference Family Conference Location: Bedside Issues Discussed: * Palliative care role, purpose, approach * Additional medical, psychosocial, and spiritual history * Patients general health, functional status, and cognitive changes in the months leading up to the current hospitalization * Patient/family understanding of the current medical problems * Patient/family understanding of prognosis * Patients goals of care as best understood from advance directives and/or conversations and/or values * Current medical treatment options and benefits/burdens of those options * Likely scenarios comparing ongoing aggressive care with a transition to comfort measures only * Questions answered to the best of my ability * Broached hospice philosophy and benefits * Palliative care contact information provided Assessment and Plan - Disease Oriented Problem List (1) Metastatic breast cancer (2) UTI (urinary tract infection) - Symptom Scale (1) Pain 0-10 Scale: 5 Comment: Patient has history of breast cancer with metastasis to the bone. (2) Anxiety 0-10 Scale: Unable to quantify Comment: Patient was recently notified of brain MRI results which showed metastasis disease. (3) Physical deconditioning 0-10 Scale: Unable to quantify Comment: Progressive. Patient has breast cancer with metastasis to the bone. Has developed generalized weakness to bilateral lower extremities. PT consulted , recommending PT at rehab. Pertinent Non-Medical Issues: Psychosocial: Patient is originally from [place]. She relocated to [place] approximately 2 years ago. 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 Patient currently resides at home with his sister who is legally blind and patient is a primary caregiver for his sister. Patient is single. Never had children of her own. Patient his 3 siblings 1 sister who is blind and 2 brothers who resides in [place]. Spiritual: Patient is Sabianist. Legal: Ethical issues impacting care: None identified at this time. Important Contacts: Brother-Adalberto Sellers [phone] Prognosis: Ms. Sellers is a 68 years old female with a medical history significant for breast carcinoma with metastatic disease to the cervical and thoracic vertebral bodies, psoriatic arthritis, restrictive lung disease, and gastroesophageal reflux disease. Patient presented to the ER via EMS on 07/20/18 with complaints of bilateral lower extremity weakness. Given multiple ongoing comorbidities, patient remains at high risk for further complications, deterioration, and decline. Code Status: Full Code Plan: PLAN: Legal decision maker: Patient is currently able to participate in making his own medical decisions. In the event that she is incapacitated, according to [place] statute her 4 siblings, his sister and 3 brothers will serve as a healthcare proxy's. Goals: Aggressive. Patient elected full code at this time. She feels she still has outpatient treatments she can try at this time. Patient is hopeful to be started on Verzinio in combination with Faslodex as per her discussion with his oncologist. She understands that she may or may not respond to treatment offered. Briefly broached hospice philosophy and benefits. Patient states that she is not ready for hospice at this time. Plan is for patient to be discharged home today with home health care. CODE STATUS: Full code SYMPTOMS: * Pain: Patient has history of breast cancer with metastasis to the bone. Patient rating her pain as 5/10 and describes it as chronic and generalized achy pain to her bilateral knees, sometimes neck. Patient states that she does not want to take narcotics because being aware of her surroundings and and being cognitively aware of what is happening is important to her. She states that at home if pain is excruciating she will take Acetaminophen and worst case scenario she took Tramadol. Appears to be adequately managed at this time. * Anxiety:Patient was recently notified of brain MRI results which showed metastasis disease. Patient states that she is not as anxious as she was when she was notified of the results. Resolved. * Physical deconditioning : Progressive. Patient has breast cancer with metastasis to the bone. Has developed generalized weakness to bilateral lower extremities. PT consulted, recommending PT at rehab. Patient is going to be discharged home with home health care. Palliative care will continue to follow the patient during hospital course as condition evolves, to assist patient/decision-maker with understanding of their medical conditions, weighing benefits/burdens of treatment options, for clarification of goals of treatment. Additionally will assist with any symptoms of palliative concern Appreciation Thank you for the opportunity to participate in the care of Lety Sellers. Attestation Attestation: To help prompt me to consider important information that might be impacting today's encounter and assessment, information from prior notes written by myself or my colleagues may have been "brought forward" into today's note. My signature on this note, however, is an attestation that I personally performed the exam, history, and/or decision-making noted today, and, unless otherwise indicated, the interactions with patient, family, and staff as well as the review of records all occurred today. I also attest that the listed assessment and stated plan reflect my best clinical judgment today based on the combination of historical information, prior notes, and today's exam/ interactions. When time spent is documented, it refers only to time spent today by the signer, or if indicated, combined time spent today by collaborating physician/nurse practitioner.
--- NOTE | 2018-07-23 11:08 | P.DCO ---
- Diagnosis (1) Metastatic breast cancer Status: Chronic (2) Impaired mobility and activities of daily living Status: Acute (3) Weakness Status: Acute - Physical Therapy Order: Evaluate and treat, Improve ambulation, Strength and gait training - Occupational Therapy Order: Evaluate and treat, Improve ADL - Home Health Nursing Order: Medical education, Signs/symptoms of disease process, Medication education-adverse effect, Nursing assessment with vital signs - Case Management Consult Yes - Certification I have seen patient Lety Sellers on 07/23/18. My clinical findings support the need for the requested home health care services because: Limited mobility due to disease progression I certify that my clinical findings support that this patient is homebound because: Unsteady gait/balance
--- NOTE | 2018-07-23 11:10 | P.DS ---
Date of admission: 07/20/18 17:56 Primary care physician: UNKNOWN Brief History from admission: This is a 68-year-old female with a PMH of Metastatic Breast CA s/p Mastectomy/ Chemo/Radiation, GERD and Restrictive Lung Disease who presented to the ER w/ c/ o bilateral lower extremity weakness. States she was recently in Rehab, however discharged few days early on 07/16/18 since pt had been doing well. Over the last 1wk, however, she's had progressive decline and worsening lower extremity weakness. Today, unable to get up from cough due to weakness. Denies fall, injury or trauma. On arrival, BP 190/77, HR 72, O2 sat 99% on RA, Afebrile. CBC essentially unremarkable. Chemistry essentially unremarkable except for GFR 58. Troponin negative. UA with UTI. CT L-spine with 1.6 cm calcified splenic artery aneurysm, lucency of T11 vertebral body, 2 sclerotic foci of sacrum indeterminant, recommendation for MRI, old L1 compression deformity. CT Pelvis 2 rounded areas of lucency along sacrum, possibly metastatic, consideration for PET/CT. Follows w/ Dr. Zuñiga as outpatient. DS: Diagnosis - Discharge Diagnosis (1) Metastatic breast cancer Status: Chronic (2) Impaired mobility and activities of daily living Status: Acute (3) Weakness Status: Acute (4) UTI (urinary tract infection) Status: Acute DS: Summary - Time Spent with Patient Total time spent providing and/or coordinating discharge services: - Quality: VTE Deep Vein Thrombosis/Pulmonary Embolism Present on Admission: No Exam Vital signs: Vital Signs 07/22/18 11:29 07/22/18 15:32 07/22/18 19:26 Temperature 98.4 F 98.7 F 98.2 F Pulse Rate 69 67 70 Respiratory Rate 18 18 16 Blood Pressure 120/52 L 144/67 H 123/57 L Pulse Oximetry 99 100 99 07/22/18 23:39 07/23/18 04:00 07/23/18 08:00 Temperature 98.3 F 97.9 F 98.5 F Pulse Rate 69 73 76 Respiratory Rate 17 18 18 Blood Pressure 145/65 H 141/70 H 165/72 H Pulse Oximetry 98 98 100 Intake & Output 07/22/18 07/23/18 07/23/18 18:59 06:59 18:59 Intake Total 2200 / 2200 1480 / 1480 Balance 2200 / 2200 1480 / 1480 Weight 121.7 kg Intake: IV 1000 / 1000 1000 / 1000 NS Inj 1,000 ML @ 100 mls/hr IV 1000 / 1000 1000 / 1000 .CONT .Q10H [facility] Rx#:[id number] Oral 1200 / 1200 480 / 480 Other: # Voids 3 4 Date of Last Bowel Movement 07/22/18 07/23/18 07/23/18 # Bowel Movements 1 2 Results Labs on day of discharge: Labs from last 24 hours 07/23/18 07/23/18 06:47 06:47 WBC 2.3 L RBC 3.07 L Hgb 9.3 L Hct 29.0 L MCV 94.5 MCH 30.4 MCHC 32.2 RDW 17.1 Plt Count 140 L D MPV 7.8 Prelim Diff (Auto) Manual diff required WBC Differential Manual diff final Seg Neuts % (Manual) 69 Band Neuts % (Manual) 1 Lymphocytes % (Manual) 26 Monocytes % (Manual) 2 Basophils % (Manual) 1 Myelocytes % (Man) 1 H Abs Neuts (Manual) 1.6 L Differential Comment . Platelet Estimate Low L Platelet Morphology Normal Tear Drop Cells 1+ H Ovalocytes 1+ H Sodium 145 Potassium 3.9 Chloride 116 H Carbon Dioxide 19.8 L Anion Gap 9 BUN 10 Creatinine 0.63 Estimated GFR Greater than 89 Random Glucose 100 Calcium 7.8 L Total Bilirubin 0.3 AST 17 ALT 30 Alkaline Phosphatase 113 Total Protein 5.7 L D Albumin 2.5 L - Impressions ITS Impressions Lumbar Spine CT 07/20/18 13:01 CONCLUSION: 1. 1.6 cm rim calcified splenic artery aneurysm 2. Partial visualization of an area of lucency involving the T11 vertebral body. This is poorly characterized on this exam. Either CT scan or MRI of the thoracic spine would be needed to further assess this lesion. It is indeterminate within its visualized area. 3. 2 tiny sclerotic foci involving the sacrum which are indeterminate. MRI could be utilized to further assess. 4. Pronounced osteopenia. 5. Old L1 compression deformity. 6. Multilevel degenerative changes including areas of narrowing of the central canal as detailed at each level in the above discussion. Pelvis CT 07/20/18 13:01 CONCLUSION: 1. 2 rounded areas of increased density involving the central aspects of the sacrum. These are indeterminate. They could relate to simple bone islands. If there is strong clinical concern for metastatic disease consideration could be made to an outpatient PET CT. Degenerative changes of the hips and lumbar spine. Head MRI 07/21/18 00:00 CONCLUSION: 1. 4 mm minimally enhancing extra-axial mass in the frontal high convexities on the right concerning for metastatic disease. 2. Multiple additional foci of abnormal enhancement in the calvaria measuring 1 cm or smaller also concerning for metastatic disease. 3. No acute infarction or hemorrhage. Discharge Plan - Discharge Disposition Patient Disposition: /Home Health Service - Discharge Condition Condition: Stable - Discharge Order Discharge Orders: Discharge Order (Routine); Ordered 07/23/18 Ordered By: Eleazar Abel - Physicians Team Primary Care Provider: UNKNOWN, Attending Provider: Eleazar Abel Other Providers: Odilia Mccrary MD ; Ahsan Zuñiga MD
--- NOTE | 2018-07-23 14:11 | P.PNIM ---
Subjective Interval history: Patient reports she is feeling okay today. She discussed the imaging findings with her oncologist. We discussed discharge planning at length. She does not want to return to rehab at this point. She wants to go home. However her sister who she lives with was sent to the emergency room and she does not have a way to get into the house. Physical Exam Vital signs: Vital Signs 07/22/18 15:32 07/22/18 19:26 07/22/18 23:39 Temperature 98.7 F 98.2 F 98.3 F Pulse Rate 67 70 69 Respiratory Rate 18 16 17 Blood Pressure 144/67 H 123/57 L 145/65 H Pulse Oximetry 100 99 98 07/23/18 04:00 07/23/18 08:00 07/23/18 12:00 Temperature 97.9 F 98.5 F 98.2 F Pulse Rate 73 76 76 Respiratory Rate 18 18 18 Blood Pressure 141/70 H 165/72 H 152/72 H Pulse Oximetry 98 100 99 Intake & Output 07/22/18 07/23/18 07/23/18 18:59 06:59 18:59 Intake Total 2200 / 2200 1480 / 1480 Balance 2200 / 2200 1480 / 1480 Weight 121.7 kg Intake: IV 1000 / 1000 1000 / 1000 NS Inj 1,000 ML @ 100 mls/hr IV 1000 / 1000 1000 / 1000 .CONT .Q10H [facility] Rx#:[id number] Oral 1200 / 1200 480 / 480 Other: # Voids 3 4 Date of Last Bowel Movement 07/22/18 07/23/18 07/23/18 # Bowel Movements 1 2 Narrative: GENERAL: Elderly female in no acute distress. CARDIOVASCULAR: Normal rate and regular rhythm without murmurs, gallops, or rubs. RESPIRATORY: Good respiratory efforts. Breath sounds equal and clear to auscultation bilaterally. GASTROINTESTINAL: Abdomen soft, non-tender, non-distended. Normal active bowel sounds MUSCULOSKELETAL: Extremities without cyanosis, or edema. NEURO: Alert & Oriented x4 to person, place, time, situation. Moves all ext x4. Strength is 4/5 in lower extremities. PSYCH: Appropriate mood and affect. Results - Labs CBC & Chem 7: 07/23/18 06:47 07/23/18 06:47 Laboratory Results - last 24 hr 07/23/18 07/23/18 06:47 06:47 WBC 2.3 L RBC 3.07 L Hgb 9.3 L Hct 29.0 L MCV 94.5 MCH 30.4 MCHC 32.2 RDW 17.1 Plt Count 140 L D MPV 7.8 Prelim Diff (Auto) Manual diff required WBC Differential Manual diff final Seg Neuts % (Manual) 69 Band Neuts % (Manual) 1 Lymphocytes % (Manual) 26 Monocytes % (Manual) 2 Basophils % (Manual) 1 Myelocytes % (Man) 1 H Abs Neuts (Manual) 1.6 L Differential Comment . Platelet Estimate Low L Platelet Morphology Normal Tear Drop Cells 1+ H Ovalocytes 1+ H Sodium 145 Potassium 3.9 Chloride 116 H Carbon Dioxide 19.8 L Anion Gap 9 BUN 10 Creatinine 0.63 Estimated GFR Greater than 89 Random Glucose 100 Calcium 7.8 L Total Bilirubin 0.3 AST 17 ALT 30 Alkaline Phosphatase 113 Total Protein 5.7 L D Albumin 2.5 L Assessment and Plan - Assessment (1) Metastatic breast cancer Code(s): C50.919 - Malignant neoplasm of unspecified site of unspecified female breast Status: Chronic (2) Impaired mobility and activities of daily living Code(s): Z74.09 - Other reduced mobility Status: Acute (3) Weakness Code(s): R53.1 - Weakness Status: Acute (4) UTI (urinary tract infection) Code(s): N39.0 - Urinary tract infection, site not specified Status: Acute - Plan 68-year-old female who presented with profound bilateral lower extremity weakness and inability to ambulate: Weakness in a patient with history Metastatic Breast CA S/p Mastectomy/Chemo/ Radiation: progressive lower extremity weakness x1 wk, recently d/c'd from Rehab, CT L-Spine w/ poorly characterized area of lucency T11, CT Pelvis w/ 2 sclerotic lesions along sacrum, possibly metastatic w/ recommendation for PET/ CT. -Appreciate input from oncology, Dr. Zuñiga. Ibrance is associated with muscle weakness in 20% of patients. - Oncology considering transitioning her to a different therapy. - The patient improved with physical therapy. She preferred to return home. - She will be discharged home with home health and physical therapy to continue rehabilitation efforts. She will follow-up outpatient with oncology to discuss further treatment. Anxiety/depression: - Resume home medications. Abnormal urinalysis: Patient treated with empiric antibiotics. Urine culture is negative. Discontinue antibiotics. DVT Prophylaxis: SCD/Teds Discharge Planning: Patient can be discharged in the morning when she can safely enter her home..
[2018-07-23] MEDS: Pantoprazole Sodium 20 MG DR Tablet PO SCH (20:50)
[2018-07-23] MEDS ORDERED: Sodium Chloride 0.9% 2 ML Flush BID IV.FLUSH SCH (21:00)
[2018-07-24] MEDS: LORazepam 1 MG Tablet PO SCH (08:29)
[2018-07-24] MEDS: Furosemide 40 MG Tablet PO SCH (08:29)
[2018-07-24] MEDS: Spironolactone 25 MG Tablet PO SCH (08:29)
[2018-07-24 09:41] VITALS: RESP 18
--- NOTE | 2018-07-24 09:47 | P.DS ---
Date of admission: 07/20/18 17:56 Primary care physician: UNKNOWN Brief History from admission: HPI from the admitting physician: This is a 68-year-old female with a PMH of Metastatic Breast CA s/p Mastectomy/ Chemo/Radiation, GERD and Restrictive Lung Disease who presented to the ER w/ c/ o bilateral lower extremity weakness. States she was recently in Rehab, however discharged few days early on 07/16/18 since pt had been doing well. Over the last 1wk, however, she's had progressive decline and worsening lower extremity weakness. Today, unable to get up from cough due to weakness. Denies fall, injury or trauma. On arrival, BP 190/77, HR 72, O2 sat 99% on RA, Afebrile. CBC essentially unremarkable. Chemistry essentially unremarkable except for GFR 58. Troponin negative. UA with UTI. CT L-spine with 1.6 cm calcified splenic artery aneurysm, lucency of T11 vertebral body, 2 sclerotic foci of sacrum indeterminant, recommendation for MRI, old L1 compression deformity. CT Pelvis 2 rounded areas of lucency along sacrum, possibly metastatic, consideration for PET/CT. Follows w/ Dr. Zuñiga as outpatient. Patient update on day of discharge: Patient reports she is feeling okay today. No new issues. DS: Diagnosis - Discharge Diagnosis (1) Metastatic breast cancer Status: Chronic (2) Impaired mobility and activities of daily living Status: Acute (3) Weakness Status: Acute (4) UTI (urinary tract infection) Status: Acute DS: Summary Hospital Course: 68-year-old female who presented with profound bilateral lower extremity weakness and inability to ambulate. Evaluation and treatment course detailed below: Weakness in a patient with history Metastatic Breast CA S/p Mastectomy/Chemo/ Radiation: progressive lower extremity weakness x1 wk, recently d/c'd from Rehab, CT L-Spine w/ poorly characterized area of lucency T11, CT Pelvis w/ 2 sclerotic lesions along sacrum, possibly metastatic w/ recommendation for PET/ CT. -Appreciate input from oncology, Dr. Zuñiga. Ibrance is associated with muscle weakness in 20% of patients. - Oncology considering transitioning her to a different therapy. - The patient improved with physical therapy. She preferred to return home. - She will be discharged home with home health and physical therapy to continue rehabilitation efforts. She will follow-up outpatient with oncology to discuss further treatment. Anxiety/depression: - Resume home medications. Abnormal urinalysis: Patient treated with empiric antibiotics. Urine culture is negative. Discontinue antibiotics. - Time Spent with Patient Total time spent providing and/or coordinating discharge services: Greater than 30 minutes - Quality: VTE Deep Vein Thrombosis/Pulmonary Embolism Present on Admission: No Exam Vital signs: Vital Signs 07/23/18 12:00 07/23/18 16:00 07/23/18 20:47 Temperature 98.2 F 98.4 F 98.5 F Pulse Rate 76 75 73 Respiratory Rate 18 18 22 Blood Pressure 152/72 H 153/72 H 131/65 Pulse Oximetry 99 99 95 07/24/18 00:37 07/24/18 04:25 07/24/18 08:00 Temperature 97.9 F 98.2 F 97.7 F Pulse Rate 70 64 73 Respiratory Rate 20 20 18 Blood Pressure 129/69 137/68 174/83 H Pulse Oximetry 98 98 98 Intake & Output 07/23/18 07/24/18 07/24/18 18:59 06:59 18:59 Intake Total 960 / 960 1380 / 1380 Output Total 400 / 400 Balance 960 / 960 980 / 980 Weight 121 kg Intake: Oral 960 / 960 1380 / 1380 Output: Urine 400 / 400 Other: # Voids 4 1 Date of Last Bowel Movement 07/23/18 07/23/18 07/23/18 Narrative: GENERAL: Elderly female in no acute distress. CARDIOVASCULAR: Normal rate and regular rhythm without murmurs, gallops, or rubs. RESPIRATORY: Good respiratory efforts. Breath sounds equal and clear to auscultation bilaterally. GASTROINTESTINAL: Abdomen soft, non-tender, non-distended. Normal active bowel sounds MUSCULOSKELETAL: Extremities without cyanosis, or edema. NEURO: Alert & Oriented x4 to person, place, time, situation. Moves all ext x4. Strength is 4/5 in lower extremities. PSYCH: Appropriate mood and affect. Results Procedures completed during hospitalization: None - Impressions ITS Impressions Lumbar Spine CT 07/20/18 13:01 CONCLUSION: 1. 1.6 cm rim calcified splenic artery aneurysm 2. Partial visualization of an area of lucency involving the T11 vertebral body. This is poorly characterized on this exam. Either CT scan or MRI of the thoracic spine would be needed to further assess this lesion. It is indeterminate within its visualized area. 3. 2 tiny sclerotic foci involving the sacrum which are indeterminate. MRI could be utilized to further assess. 4. Pronounced osteopenia. 5. Old L1 compression deformity. 6. Multilevel degenerative changes including areas of narrowing of the central canal as detailed at each level in the above discussion. Pelvis CT 07/20/18 13:01 CONCLUSION: 1. 2 rounded areas of increased density involving the central aspects of the sacrum. These are indeterminate. They could relate to simple bone islands. If there is strong clinical concern for metastatic disease consideration could be made to an outpatient PET CT. Degenerative changes of the hips and lumbar spine. Head MRI 07/21/18 00:00 CONCLUSION: 1. 4 mm minimally enhancing extra-axial mass in the frontal high convexities on the right concerning for metastatic disease. 2. Multiple additional foci of abnormal enhancement in the calvaria measuring 1 cm or smaller also concerning for metastatic disease. 3. No acute infarction or hemorrhage. Discharge Plan - Discharge Disposition Patient Disposition: W/Home Health Service - Discharge Condition Condition: Stable - Discharge Order Discharge Orders: Discharge Order (Routine); Ordered 07/24/18 Ordered By: Eleazar Abel - Physicians Team Primary Care Provider: UNKNOWN, Attending Provider: Eleazar Abel Other Providers: Odilia Mccrary MD ; Ahsan Zuñiga MD
--- NOTE | 2018-07-24 11:54 | P.PNPAL ---
Reason for Visit Reason for visit: a. To assist with evaluation and management of symptoms including: Pain, anxiety, physical deconditioning b. To assist medical decision maker(s) with: better understanding of current medical conditions; weighing benefits/burdens of medical treatment options; making medical treatment decisions. Subjective Subjective/Interval History: Follow-up medically necessary for symptom management and providing patient with a copy of 5 wishes. Patient seen and examined in the room. Patient is sitting up in bed dressed in civilian clothes ready to be discharged home. Patient denies pain at this time. Patient`s right arm and shoulder weak with decreased range of motion. Patient states that it is much better than it used to be. Patient will be discharged home with Home health care with physical therapy and occupational therapy today per patient and hospice case manager notes. Provided patient with a copy of 5 wishes and briefly discussed importance of completing form. Patient appreciative of palliative care visit. Family/Friend Interactions: No family at bedside. . Advance Directives Living Will: Never completed Health Care Surrogate: Never completed Durable Power of Sweep Press Operator: Never completed Health Care Surrogate Name and Number: HCP: Siblings x4 (3 brothers and 1 sister ) Objective Vital Signs: Vital Signs 07/23/18 12:00 07/23/18 16:00 07/23/18 20:47 Temperature 98.2 F 98.4 F 98.5 F Pulse Rate 76 75 73 Respiratory Rate 18 18 22 Blood Pressure 152/72 H 153/72 H 131/65 Pulse Oximetry 99 99 95 07/24/18 00:37 07/24/18 04:25 07/24/18 08:00 Temperature 97.9 F 98.2 F 97.7 F Pulse Rate 70 64 73 Respiratory Rate 20 20 18 Blood Pressure 129/69 137/68 174/83 H Pulse Oximetry 98 98 98 Intake & Output 07/23/18 07/24/18 07/24/18 18:59 06:59 18:59 Intake Total 960 / 960 1380 / 1380 Output Total 400 / 400 Balance 960 / 960 980 / 980 Weight 121 kg Intake: Oral 960 / 960 1380 / 1380 Output: Urine 400 / 400 Other: # Voids 4 1 Date of Last Bowel Movement 07/23/18 07/23/18 07/23/18 Physical Exam: CONSTITUTIONAL/GENERAL: This is an obese patient, in no apparent distress. TUBES/LINES/DRAINS:PIV SKIN: No jaundice, rashes, or lesions. Ecchymoses on upper extremities. No wounds seen anteriorly. Skin temperature appropriate. Not diaphoretic. HEAD: Atraumatic. Normocephalic. EYES: Pupils equal and round and reactive. Extraocular motions intact. No scleral icterus. No injection or drainage. Fundi not examined. ENT: Hearing grossly normal. Nose without bleeding or purulent drainage.Has Upper dentures. Moist oral mucosa NECK: Trachea midline. Supple, nontender. CARDIOVASCULAR: Regular rate and rhythm without murmurs, gallops, or rubs. No JVD. Peripheral pulses symmetric. RESPIRATORY/CHEST: Symmetric, unlabored respirations. Clear to auscultation. Breath sounds equal bilaterally. No wheezes, rales, or rhonchi. GASTROINTESTINAL: Abdomen obese, soft, non-tender, nondistended. No guarding. Bowel sounds present. GENITOURINARY: Without palpable bladder distension. MUSCULOSKELETAL: Extremities without clubbing, cyanosis, or edema. No joint tenderness or effusion noted. No calf tenderness. No mottling or clubbing. LYMPHATICS: Did not assess NEUROLOGICAL: Awake and alert. Motor and sensory grossly within normal limits. Follows commands. Cognitively sharp. Moves all extremities. PSYCHIATRIC: No obvious anxiety/depression. no apparent hallucinations or other psychotic thought process. Diagnostic Tests Laboratory: Laboratory Results - last 72 hr 07/22/18 07/23/18 07/23/18 06:20 06:47 06:47 WBC 2.3 L RBC 3.07 L Hgb 9.3 L Hct 29.0 L MCV 94.5 MCH 30.4 MCHC 32.2 RDW 17.1 Plt Count 140 L D MPV 7.8 Prelim Diff (Auto) Manual diff required WBC Differential Manual diff final Seg Neuts % (Manual) 69 Band Neuts % (Manual) 1 Lymphocytes % (Manual) 26 Monocytes % (Manual) 2 Basophils % (Manual) 1 Myelocytes % (Man) 1 H Abs Neuts (Manual) 1.6 L Differential Comment . Platelet Estimate Low L Platelet Morphology Normal Tear Drop Cells 1+ H Ovalocytes 1+ H Sodium 145 Potassium 3.9 Chloride 116 H Carbon Dioxide 19.8 L Anion Gap 9 BUN 10 Creatinine 0.63 Estimated GFR Greater than 89 Random Glucose 100 Calcium 7.8 L Total Bilirubin 0.3 AST 17 ALT 30 Alkaline Phosphatase 113 Total Protein 5.7 L D Albumin 2.5 L CA 15-3 Antigen 199.4 H Result Diagrams: 07/23/18 06:47 07/23/18 06:47 Microbiology: Microbiology 07/20/18 15:15 Urine Culture - Final Clean Catch Urine 10-50,000 cfu/mL mixed bert (probable contaminants) Imaging: Lumbar Spine CT 07/20/18 13:01 CONCLUSION: 1. 1.6 cm rim calcified splenic artery aneurysm 2. Partial visualization of an area of lucency involving the T11 vertebral body. This is poorly characterized on this exam. Either CT scan or MRI of the thoracic spine would be needed to further assess this lesion. It is indeterminate within its visualized area. 3. 2 tiny sclerotic foci involving the sacrum which are indeterminate. MRI could be utilized to further assess. 4. Pronounced osteopenia. 5. Old L1 compression deformity. 6. Multilevel degenerative changes including areas of narrowing of the central canal as detailed at each level in the above discussion. Pelvis CT 07/20/18 13:01 CONCLUSION: 1. 2 rounded areas of increased density involving the central aspects of the sacrum. These are indeterminate. They could relate to simple bone islands. If there is strong clinical concern for metastatic disease consideration could be made to an outpatient PET CT. Degenerative changes of the hips and lumbar spine. Head MRI 07/21/18 00:00 CONCLUSION: 1. 4 mm minimally enhancing extra-axial mass in the frontal high convexities on the right concerning for metastatic disease. 2. Multiple additional foci of abnormal enhancement in the calvaria measuring 1 cm or smaller also concerning for metastatic disease. 3. No acute infarction or hemorrhage. Assessment and Plan - Disease Oriented Problem List (1) Metastatic breast cancer (2) UTI (urinary tract infection) - Symptom Scale (1) Pain 0-10 Scale: 3 Comment: Patient has history of breast cancer with metastasis to the bone. (2) Anxiety 0-10 Scale: Unable to quantify Comment: Patient was recently notified of brain MRI results which showed metastasis disease. (3) Physical deconditioning 0-10 Scale: Unable to quantify Comment: Progressive. Patient has breast cancer with metastasis to the bone. Has developed generalized weakness to bilateral lower extremities. PT consulted , recommending PT at rehab. Pertinent Non-Medical Issues: Psychosocial: Patient is originally from [place]. She relocated to [place] approximately 2 years ago. 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 Patient currently resides at home with his sister who is legally blind and patient is a primary caregiver for his sister. Patient is single. Never had children of her own. Patient his 3 siblings 1 sister who is blind and 2 brothers who resides in [place]. Spiritual: Patient is Rastafarian. Legal:Left patient with a copy of 5 wishes to complete at her own time. Ethical issues impacting care: None identified at this time. Important Contacts: Brother-Adalberto Sellers [phone] Prognosis: Ms. Sellers is a 68 years old female with a medical history significant for breast carcinoma with metastatic disease to the cervical and thoracic vertebral bodies, psoriatic arthritis, restrictive lung disease, and gastroesophageal reflux disease. Patient presented to the ER via EMS on 07/20/18 with complaints of bilateral lower extremity weakness. Given multiple ongoing comorbidities, patient remains at high risk for further complications, deterioration, and decline. Code Status: Full Code Plan: PLAN: Legal decision maker: Patient is currently able to participate in making his own medical decisions. In the event that she is incapacitated, according to [place] statute her 4 siblings, his sister and 3 brothers will serve as a healthcare proxy's. Goals: Remain aggressive. Patient to be discharged home with [facility] PT, and OT. Patient will continue with chemotherapy. CODE STATUS: Full code SYMPTOMS: * Pain: Patient has history of breast cancer with metastasis to the bone. Patient rating her pain as 5/10 and describes it as chronic and generalized achy pain to her bilateral knees, sometimes neck. Patient states that she does not want to take narcotics because being aware of her surroundings and and being cognitively aware of what is happening is important to her. She states that at home if pain is excruciating she will take Acetaminophen and worst case scenario she took Tramadol. Appears to be adequately managed at this time. * Anxiety:Patient was recently notified of brain MRI results which showed metastasis disease. Patient states that she is not as anxious as she was when she was notified of the results. Resolved. * Physical deconditioning : Progressive. Patient has breast cancer with metastasis to the bone. Has developed generalized weakness to bilateral lower extremities. PT consulted, recommending PT at rehab. Patient is going to be discharged home with home health care. Palliative care will continue to follow the patient during hospital course as condition evolves, to assist patient/decision-maker with understanding of their medical conditions, weighing benefits/burdens of treatment options, for clarification of goals of treatment. Additionally will assist with any symptoms of palliative concern
[2018-07-24 12:23] VITALS: BP 131/73; PULSE 64; TEMP 98.6; O2SAT 92
== END 2018-07-24 12:22 | disposition home health service (06) ==
LOC: NEPC 12:15 → NEDA 12:15 → HCIN 19:41 → HCIS 07-24 08:52 → HCIN 07-24 08:57
PROVIDERS: ADMIT Family Medicine; ATTEND Family Medicine